=== PATIENT | female | born 1995 | race Caucasian/White ===

== ENCOUNTER → 2020-06-08 12:35 | Outpatient (BNVA) | payer OTHER, SELFPAY | PROVIDERS: PCP Hospitalist; Referring Provider Hospitalist; Visit Provider Nurse Practitioner Psychiatric/Mental Health | DX: F43.10 Post-traumatic stress disorder, unspecified (principal); F11.99 Opioid use, unspecified with unspecified opioid-induced disorder | CPT/HCPCS: 99214 ==

== ENCOUNTER → 2020-06-15 12:53 | Outpatient (BNVA) | payer OTHER, SELFPAY | PROVIDERS: Visit Provider Nurse Practitioner Psychiatric/Mental Health | DX: F11.20 Opioid dependence, uncomplicated (principal); F43.10 Post-traumatic stress disorder, unspecified; Z79.899 Other long term (current) drug therapy | CPT/HCPCS: 99214 ==

== ENCOUNTER → 2020-06-22 10:59 | Outpatient (BNVA) | payer OTHER, SELFPAY | PROVIDERS: Visit Provider Nurse Practitioner Psychiatric/Mental Health | DX: F11.20 Opioid dependence, uncomplicated (principal); F43.10 Post-traumatic stress disorder, unspecified | CPT/HCPCS: 99212 ==

== ENCOUNTER → 2020-06-29 09:23 | Outpatient (BNVA) | payer OTHER, SELFPAY | PROVIDERS: Visit Provider Nurse Practitioner Psychiatric/Mental Health | DX: F11.20 Opioid dependence, uncomplicated (principal); F43.10 Post-traumatic stress disorder, unspecified | CPT/HCPCS: 99212 ==

== ENCOUNTER → 2020-07-06 14:01 | Outpatient (BNVA) | payer OTHER, SELFPAY | PROVIDERS: Visit Provider Nurse Practitioner Psychiatric/Mental Health | DX: Z76.89 Persons encountering health services in other specified circumstances (principal) ==

== ENCOUNTER → 2020-07-13 10:42 | Outpatient (BNVA) | payer OTHER, SELFPAY | PROVIDERS: Visit Provider Nurse Practitioner Psychiatric/Mental Health | DX: Z76.89 Persons encountering health services in other specified circumstances (principal) ==

== ENCOUNTER → 2020-07-27 11:01 | Outpatient (BNVA) | payer OTHER, SELFPAY | PROVIDERS: PCP Nurse Practitioner Family; Visit Provider Nurse Practitioner Psychiatric/Mental Health | DX: Z13.89 Encounter for screening for other disorder (principal) ==

== ENCOUNTER → 2020-08-03 11:44 | Outpatient (BNVA) | payer OTHER, SELFPAY | PROVIDERS: Visit Provider Nurse Practitioner Psychiatric/Mental Health | DX: Z76.89 Persons encountering health services in other specified circumstances (principal) ==

== ENCOUNTER 2020-08-22 14:01 | Emergency (ER) | payer OTHER, SELFPAY ==
[2020-08-22 14:13] VITALS: BP 108/72; PULSE 82; RESP 16; TEMP 36.8; O2SAT 97
[2020-08-22 19:23] LABS: MANUAL DIFF FLAG NO
[2020-08-22 19:28] LABS: Basophils Percent Auto 0.3 % (0-2); Eosinophils Absolute Auto 0.1 X10*3/uL (0.0-0.4); Hematocrit 34.4 % (37-47); Hemoglobin 11.5 g/dl (12.0-16.0); Imm Gran Abs Auto 0.05 X10*3/uL (0.00-0.03); Imm Gran Pct Auto 0.7 % (0.0-0.4); Lymphocytes Absolute Auto 1.4 X10*3/uL (1.2-4.9); Lymphocytes Percent Auto 20.4 % (20-40); Mean Corpuscular HGB Conc 33.4 g/dl (31.0-35.0); Mean Corpuscular Hemoglobin 30.3 pg (27.0-33.0); Mean Corpuscular Volume 90.8 fL (80-98); Mean Platelet Volume 9.5 fL (9.4-12.3); Monocytes Absolute Auto 0.3 X10*3/uL (0.1-1.2); Monocytes Percent Auto 4.3 % (2-11); Neutrophils Absolute Auto 5.1 X10*3/uL (2.0-8.3); Neutrophils Percent Auto 73.3 % (45-73); Platelet Count 223 X10*3/uL (160-400); Red Blood Count 3.79 X10*6/uL (4.20-5.50); Red Cell Distribution Width 12.4 % (11.0-16.0)
[2020-08-22 19:30] VITALS: BP 105/62; PULSE 65; RESP 18; TEMP 36.7; O2SAT 99
[2020-08-22 19:47] LABS: Alanine Aminotransferase 18 U/L (0-31); Albumin Level 4.5 g/dL (3.5-5.0); Alkaline Phosphatase 64 U/L (39-117); Anion Gap 12 (12-20); Aspartate Amino Transferase 16 U/L (5-31); Bilirubin Total 0.4 mg/dL (0.0-1.0); Blood Urea Nitrogen 12 mg/dL (9-16); Calcium 9.1 mg/dL (8.4-10.2); Carbon Dioxide 26 mmol/L (22-29); Chloride 103 mmol/L (96-108); Creatinine Clr Calc Pharmacy 112.2; Estimated Glomerular Filt Rate > 60; Glucose Random 94 mg/dL (60-115); Potassium 4.8 mmol/l (3.3-5.1); Sodium 136 mmol/L (135-145); Total Protein 6.6 g/dL (6.5-8.0)
--- NOTE | 2020-08-22 20:06 | ED.ABDPAIN ---
HPI - Abdominal Pain General Chief Complaint: Abdominal Pain Stated Complaint: abd pain Time Seen by Provider: 08/22/20 19:50 Source: patient Mode of arrival: ambulatory Limitations: no limitations History of Present Illness HPI narrative: Patient comes emergency room complaining of abdominal pain for 6 days. Patient states she has been constipated and having abdominal pain. Patient has history of Crohn's disease. Patient was seen yesterday that [facility], they recommended admission to [facility] due to an intestinal obstruction, patient declined because she had a previous bad experience at [facility], decided to wait until today. Patient states that her primary care physician is in the [facility] and would prefer to be admitted here if needed. Patient denies vomiting Related Data Home Medications Medication Instructions Recorded Confirmed albuterol sulfate 2.5 mg INHALATION Q4-6H PRN 07/04/20 07/13/20 Previous Rx's Medication Instructions Recorded omeprazole 20 mg capsule,delayed 20 mg PO DAILY #30 cap 06/13/20 release albuterol sulfate 90 mcg/actuation 2 puff INHALATION QID PRN #8.5 g 07/04/20 aerosol inhaler prazosin 1 mg capsule 2 mg PO BEDTIME #60 cap 07/06/20 trazodone 100 mg tablet 100 mg PO BEDTIME #30 tab 07/06/20 risperidone 0.5 mg tablet 0.5 mg PO .COMPLEX 30 Days #45 tab 08/02/20 buprenorphine 12 mg-naloxone 3 mg 1 film SUBLINGUAL DAILY 30 Days 08/03/20 sublingual film #30 ea lithium carbonate 300 mg capsule 600 mg PO BEDTIME #60 cap 08/03/20 hyoscyamine sulfate 0.25 mg PO QID PRN #7 tab 08/22/20 Allergies Allergy/AdvReac Type Severity Reaction Status Date / Time latex [LATEX] Allergy Intermediate RASH Verified 07/27/20 10:34 adhesive tape [ADHESIVE TAPE] AdvReac Mild RASH Verified 07/27/20 10:34 Review of Systems Review of Systems Constitutional : No Weight loss, No Fever, No Chills, No Night Sweats, No Fatigue, No Malaise ENT/Mouth : No Hearing loss, No Ear Pain, No Nasal Congestion, No Sinus Pain, No Hoarseness, No sore throat, No Rhinorrhea, No Swallowing Difficulty Eyes: No Eye Pain, No Swelling, No Redness, No Foreign Body, No Discharge, No Vision Changes Cardiovascular : No Chest Pain, No SOB, No Dyspnea on Exertion, No Orthopnea, No Edema, No Palpitations Respiratory : No Cough, No Sputum, No Wheezing, No Smoke Exposure, No Dyspnea Gastrointestinal : No Nausea, No Vomiting, No Diarrhea, complaining of constipation for 6 days, diffuse abdominal pain for 6 days, nonradiating Genitourinary : no irregular bleeding, No Dysuria, No Urinary Frequency, No Hematuria, No Urinary Incontinence, No Urgency, No Flank Pain, No Urinary Flow Changes, No Hesitancy Musculoskeletal : No joint pain, No Myalgias, No Joint Swelling Skin : No Skin Lesions, No rash Neuro : No Weakness, No Numbness, No Paresthesias, No Loss of Consciousness, No Dizziness, No Headache Psych : No Anxiety/Panic, No Depression, No SI/HI/AH/VH, No Social Issues, Heme/Lymph: No Bruising, No Bleeding,No Lymphadenopathy Endocrine : No Polyuria, No Polydipsia, No Temperature Intolerance Physical Exam Vital Signs: Vital Signs: Last Vital Signs Temp 97.5 F 08/22/20 23:37 Pulse 62 08/22/20 23:37 Resp 16 08/22/20 23:37 BP 107/65 08/22/20 23:37 Pulse Ox 98 08/22/20 23:37 Body Mass Index 20.0 Appearance: Alert. Oriented X3. No acute distress. Eyes: Pupils equal, round and reactive to light. ENT: Pharynx normal. Neck: Normal inspection. Neck supple. No lymph nodes noted. No crepitus CVS: Normal heart rate and rhythm. Pulses normal. Normal S1 and S2 Respiratory: No respiratory distress. Breath sounds normal. No Wheezing. No rales Abdomen: Soft , [id number] tenderness and bilateral lower quadrants, No rigidity. No distention. good BS x4 Skin: Skin warm and dry. Normal skin color. Normal skin turgor. Extremities: No lower extremity edema. No lower extremity edema. No Lacerations. No Rash Neuro: Oriented X 3. No motor deficit. No sensory deficit. Moving all extermities. No slurred speech. Course Course Course Narrative: I discussed the labs and imaging with the patient, unremarkable, no bowel obstruction. Patient feeling better, patient will be discharged home. MDM - Abdominal Pain Lab Data Result diagrams: 08/22/20 19:14 08/22/20 19:14 Labs: Lab Results 08/22/20 08/22/20 08/22/20 Range/Units 19:14 19:14 19:14 WBC 7.0 (4.8-10.8) X10*3/uL RBC 3.79 L (4.20-5.50) X10*6/uL Hgb 11.5 L (12.0-16.0) g/dl Hct 34.4 L (37-47) % MCV 90.8 (80-98) fL MCH 30.3 (27.0-33.0) pg MCHC 33.4 (31.0-35.0) g/dl RDW 12.4 (11.0-16.0) % Plt Count 223 (160-400) X10*3/uL MPV 9.5 (9.4-12.3) fL Immature Gran % (Auto) 0.7 H (0.0-0.4) % Neut % (Auto) 73.3 H (45-73) % Lymph % (Auto) 20.4 (20-40) % [place] % (Auto) 4.3 (2-11) % Eos % (Auto) 1.0 (0-4) % Baso % (Auto) 0.3 (0-2) % Lymph # (Auto) 1.4 (1.2-4.9) X10*3/uL [place] # (Auto) 0.3 (0.1-1.2) X10*3/uL Eos # (Auto) 0.1 (0.0-0.4) X10*3/uL Baso # (Auto) 0.0 (0.0-0.2) X10*3/uL Abs Immat Gran (auto) 0.05 H (0.00-0.03) X10*3/uL Absolute Neuts (auto) 5.1 (2.0-8.3) X10*3/uL Absolute Nucleated RBC 0.000 (0.0-0.012) X10*3/uL Nucleated RBC % (auto) 0.0 (0.0-0.2) /100WBC ESR (0-20) MM/HR Hold Blue Top SEE NOTE Sodium 136 (135-145) mmol/L Potassium 4.8 (3.3-5.1) mmol/l Chloride 103 (96-108) mmol/L Carbon Dioxide 26 (22-29) mmol/L Anion Gap 12 (12-20) BUN 12 (9-16) mg/dL Creatinine 0.67 (0.5-1.4) mg/dL Estim Creat Clear Calc 112.2 Estimated GFR > 60 Random Glucose 94 (60-115) mg/dL Calcium 9.1 (8.4-10.2) mg/dL Total Bilirubin 0.4 (0.0-1.0) mg/dL Direct Bilirubin (0.0-0.5) mg/dL AST 16 (5-31) U/L ALT 18 (0-31) U/L Alkaline Phosphatase 64 (39-117) U/L C-Reactive Protein (< or = 0.50) mg/dL Total Protein 6.6 (6.5-8.0) g/dL Albumin 4.5 (3.5-5.0) g/dL Lipase (8-78) U/L Urine Color Urine Appearance Urine pH (5.0-8.0) Ur Specific [place] (1.005-1.025) Urine Protein (NEG-TRACE) MG/DL Urine Glucose (UA) (NEG) MG/DL Urine Ketones (NEG) MG/DL Urine Blood (NEG) Urine Nitrite (NEG) Ur Leukocyte Esterase (NEG) Urine Test (NEGATIVE) 08/22/20 08/22/20 08/22/20 Range/Units 19:14 19:14 20:54 WBC (4.8-10.8) X10*3/uL RBC (4.20-5.50) X10*6/uL Hgb (12.0-16.0) g/dl Hct (37-47) % MCV (80-98) fL MCH (27.0-33.0) pg MCHC (31.0-35.0) g/dl RDW (11.0-16.0) % Plt Count (160-400) X10*3/uL MPV (9.4-12.3) fL Immature Gran % (Auto) (0.0-0.4) % Neut % (Auto) (45-73) % Lymph % (Auto) (20-40) % [place] % (Auto) (2-11) % Eos % (Auto) (0-4) % Baso % (Auto) (0-2) % Lymph # (Auto) (1.2-4.9) X10*3/uL [place] # (Auto) (0.1-1.2) X10*3/uL Eos # (Auto) (0.0-0.4) X10*3/uL Baso # (Auto) (0.0-0.2) X10*3/uL Abs Immat Gran (auto) (0.00-0.03) X10*3/uL Absolute Neuts (auto) (2.0-8.3) X10*3/uL Absolute Nucleated RBC (0.0-0.012) X10*3/uL Nucleated RBC % (auto) (0.0-0.2) /100WBC ESR 2 (0-20) MM/HR Hold Blue Top Sodium 136 (135-145) mmol/L Potassium 4.8 (3.3-5.1) mmol/l Chloride 104 (96-108) mmol/L Carbon Dioxide 25 (22-29) mmol/L Anion Gap 12 (12-20) BUN 12 (9-16) mg/dL Creatinine 0.67 (0.5-1.4) mg/dL Estim Creat Clear Calc 112.2 Estimated GFR > 60 Random Glucose 95 (60-115) mg/dL Calcium 9.3 (8.4-10.2) mg/dL Total Bilirubin 0.4 (0.0-1.0) mg/dL Direct Bilirubin < 0.2 (0.0-0.5) mg/dL AST 20 (5-31) U/L ALT 18 (0-31) U/L Alkaline Phosphatase 64 (39-117) U/L C-Reactive Protein 0.10 (< or = 0.50) mg/dL Total Protein 6.6 (6.5-8.0) g/dL Albumin 4.5 (3.5-5.0) g/dL Lipase 22 (8-78) U/L Urine Color YELLOW Urine Appearance CLEAR Urine pH 7.0 (5.0-8.0) Ur Specific [place] 1.015 (1.005-1.025) Urine Protein NEG (NEG-TRACE) MG/DL Urine Glucose (UA) NEG (NEG) MG/DL Urine Ketones NEG (NEG) MG/DL Urine Blood NEG (NEG) Urine Nitrite NEG (NEG) Ur Leukocyte Esterase NEG (NEG) Urine Test NEGATIVE (NEGATIVE) Discharge Plan Discharge Clinical Impression: Abdominal pain Qualifiers: Abdominal location: generalized Qualified Code(s): R10.84 - Generalized abdominal pain Patient Disposition: Home, Self-Care Instructions: Abdominal Pain (ED) Additional Instructions: Please follow-up with your primary care physician tomorrow. If you have any worsening or new symptoms, please return to the emergency room or call 911 Prescriptions: New hyoscyamine sulfate 0.125 mg tablet 0.25 mg PO QID PRN (Reason: dyspepsia) Qty: 7 RF: 0 No Action omeprazole 20 mg capsule,delayed release(DR/EC) 20 mg PO DAILY Qty: 30 RF: 1 albuterol sulfate 2.5 mg /3 mL (0.083 %) solution for nebulization 2.5 mg inhalation Q4-6H PRNRF: 0 albuterol sulfate 90 mcg/actuation HFA aerosol inhaler 2 puff inhalation QID PRN (Reason: Shorness of breath) Qty: 8.5 RF: 2 risperidone 0.5 mg tablet 0.5 mg PO .COMPLEX 30 Days Qty: 45 RF: 2 buprenorphine-naloxone [Suboxone] 12-3 mg film 1 film sublingual DAILY 30 Days Qty: 30 RF: 0 lithium carbonate 300 mg capsule 600 mg PO BEDTIME Qty: 60 RF: 0 prazosin 1 mg capsule 2 mg PO BEDTIME Qty: 60 RF: 1 trazodone 100 mg tablet 100 mg PO BEDTIME Qty: 30 RF: 1 Referrals: Miguel Callahan [Physician] - 2 days [facility] Past Medical History Medical History Anxiety Asthma Crohn's disease Depression GERD (gastroesophageal reflux disease) PTSD (post-traumatic stress disorder) Family History Family History (Updated 07/28/20 @ 11:38 by HAI Jauregui, [facility]) Father No problems noted. Mother No problems noted. Brother Autism Sister Bipolar disorder Social History Social History Smoking Status: Current every day smoker Use of substances other than those prescribed or required for medical reasons: No Any prior treatment program specific to substance use: Yes (program in [facility]) Advance Directives: No Advance Directives Information Provided: No
[2020-08-22] MEDS: LORazepam 1 MG TABLET PO (20:27)
[2020-08-22 21:08] LABS: Appearance Urine CLEAR; Color Urine YELLOW; Glucose Urine UA NEG (NEG); Leukocyte Esterase Urine NEG (NEG); Nitrite Urine NEG (NEG); Specific Gravity - Urine 1.015 (1.005-1.025); Urine Blood NEG (NEG); Urine Ketones NEG (NEG); Urine Protein NEG (NEG-TRACE)
[2020-08-22 22:10] VITALS: BP 113/76; PULSE 59; RESP 16; TEMP 36.6; O2SAT 98
[2020-08-22 22:14] LABS: Alanine Aminotransferase 18 U/L (0-31); Albumin Level 4.5 g/dL (3.5-5.0); Alkaline Phosphatase 64 U/L (39-117); Anion Gap 12 (12-20); Aspartate Amino Transferase 20 U/L (5-31); Bilirubin Direct < 0.2 mg/dL (0.0-0.5); Bilirubin Total 0.4 mg/dL (0.0-1.0); Blood Urea Nitrogen 12 mg/dL (9-16); Calcium 9.3 mg/dL (8.4-10.2); Carbon Dioxide 25 mmol/L (22-29); Chloride 104 mmol/L (96-108); Creatinine Clr Calc Pharmacy 112.2; Estimated Glomerular Filt Rate > 60; Glucose Random 95 mg/dL (60-115); Lipase 22 U/L (8-78); Potassium 4.8 mmol/l (3.3-5.1); Sodium 136 mmol/L (135-145); Total Protein 6.6 g/dL (6.5-8.0)
[2020-08-22 22:26] LABS: UPreg QC Valid YES; Urine Pregnancy NEGATIVE (NEGATIVE)
--- NOTE | 2020-08-22 22:33 | CT_ITS ---
EXAMINATION: CT ABDOMEN AND PELVIS WITHOUT CONTRAST CLINICAL INFORMATION: Diffuse abdominal pain. History of Crohn's disease. COMPARISON: CT scan abdomen pelvis 11/29/2019 TECHNIQUE: Multidetector volumetric imaging was performed from the superior aspect of the liver through the pubic symphysis. Sagittal and coronal reformatted images were obtained on the technologist's workstation. This CT examination was performed using dose optimization techniques as appropriate, variously including the following: *Automated exposure control *Adjustment of mA and/or kV according to patient size (this includes techniques or standardized protocols for targeted exams where dose is matched to indication/reason for exam; i.e. extremities or head) *Use of iterative reconstruction technique DLP: 437 mGy-cm FINDINGS: LUNG BASES: The visualized lung bases are unremarkable. LIVER, GALLBLADDER, AND BILIARY TREE: The liver is normal in size, shape, and attenuation. No focal hepatic lesion or biliary ductal dilatation is present. The gallbladder is unremarkable with no evidence of radiopaque gallstones, gallbladder wall thickening, or obvious pericholecystic inflammatory changes. PANCREAS: Unremarkable. SPLEEN: Unremarkable. ADRENAL GLANDS: Unremarkable. KIDNEYS AND URETERS: The kidneys are normal in size, shape, and attenuation. No hydronephrosis, hydroureter, or calculi seen. No perinephric stranding. BLADDER: Unremarkable. GASTROINTESTINAL TRACT: There is no acute abnormality of the bowel. There is no bowel wall thickening /edema. There is no bowel obstruction. There is a moderate volume of stool in the colon. The appendix is normal . The small bowel loops are unremarkable. The stomach is normal. There is no hiatal hernia. ABDOMINAL WALL: No significant hernia is appreciated. LYMPH NODES: Normal. VASCULAR: Unremarkable. PELVIC VISCERA: Unremarkable. OSSEOUS STRUCTURES: Unremarkable. CT/CT abdomen pelvis wo con IMPRESSION: No significant abnormality.
[2020-08-22] MEDS: Morphine Sulfate 2 MG/ML CARTRIDGE 1 MG IVPUSH (22:45)
[2020-08-22 23:11] LABS: Erythrocyte Sedimentation Rate 2 MM/HR (0-20)
[2020-08-22 23:37] VITALS: BP 107/65; PULSE 62; RESP 16; TEMP 36.4; O2SAT 98
== END 2020-08-23 00:34 | disposition home or self-care (01) ==
PROVIDERS: Emergency Provider Emergency Medicine
DX: R10.84 Generalized abdominal pain (principal); F17.200 Nicotine dependence, unspecified, uncomplicated; Z71.6 Tobacco abuse counseling; Z79.899 Other long term (current) drug therapy
CPT/HCPCS: 36415; 74176; 80048; 80053; 80076; 81003; 81025; 82248; 83690; 85025; 85652; 86140; 96374; 99284; J2270

== ENCOUNTER → 2020-09-07 10:47 | Outpatient (BNVA) | payer OTHER, SELFPAY | PROVIDERS: Visit Provider Nurse Practitioner Psychiatric/Mental Health | DX: Z76.89 Persons encountering health services in other specified circumstances (principal) ==

== ENCOUNTER 2020-09-12 10:19 | Outpatient (REF) | payer OTHER, SELFPAY ==
[2020-09-12 13:47] LABS: Thyroid Stimulating Hormone 2.21 uIU/mL (0.32-4.0)
[2020-09-13 06:47] LABS: DHEA Sulfate 134 mcg/dL (18-391)
[2020-09-13 08:48] LABS: Prolactin 57.4 ng/mL
[2020-09-13 09:30] LABS: BV Int Neg Control Negative (Negative); BV Int Pos Control Positive (Positive)
[2020-09-14 00:27] LABS: C. trachomatis RNA TMA NOT DETECTED (NOT DETECTED); N. gonorrhoeae RNA TMA NOT DETECTED (NOT DETECTED)
[2020-09-16 14:37] LABS: Testosterone, Free 4.1 pg/mL (0.1-6.4); Testosterone, Total 39 ng/dL (2-45)
== END 2020-09-12 10:20 | disposition home or self-care (01) ==
LOC: HO.LAB 10:19
PROVIDERS: PCP Nurse Practitioner Family; Visit Provider Advanced Practice Midwife
DX: Z01.419 Encounter for gynecological examination (general) (routine) without abnormal findings (principal); N92.6 Irregular menstruation, unspecified; R10.2 Pelvic and perineal pain; N92.0 Excessive and frequent menstruation with regular cycle; L68.0 Hirsutism; F19.11 Other psychoactive substance abuse, in remission; Z20.2 Contact with and (suspected) exposure to infections with a predominantly sexual mode of transmission
CPT/HCPCS: 36415; 82627; 83498; 84146; 84402; 84403; 84443; 87480; 87491; 87510; 87591; 87624; 87660; 88141; 88142

== ENCOUNTER → 2020-09-14 10:31 | Outpatient (BNVA) | payer OTHER, SELFPAY | PROVIDERS: PCP Nurse Practitioner Family; Visit Provider Nurse Practitioner Psychiatric/Mental Health ==

== ENCOUNTER → 2020-09-21 10:37 | Outpatient (BNVA) | payer OTHER, SELFPAY | PROVIDERS: Visit Provider Nurse Practitioner Psychiatric/Mental Health ==

== ENCOUNTER 2020-10-04 11:21 | Outpatient (REF) | payer OTHER, SELFPAY ==
--- NOTE | ~2020-10-04 | XR_ITS ---
EXAMINATION: XR CHEST CLINICAL INFORMATION: Cough COMPARISON: Previous chest x-ray most recent March 2020 TECHNIQUE: 2 views of the chest were obtained. FINDINGS: The cardiac and mediastinal contours are normal. The lungs are clear. There is no pleural effusion or pneumothorax. There is curvature of the midthoracic spine to the right. Bony structures are otherwise unremarkable. XR/XR chest 2V IMPRESSION: No evidence for acute disease in the chest.
[2020-10-04 13:53] LABS: MANUAL DIFF FLAG NO
[2020-10-04 14:06] LABS: Basophils Percent Auto 0.2 % (0-2); Eosinophils Absolute Auto 0.1 X10*3/uL (0.0-0.4); Eosinophils Percent Auto 0.8 % (0-4); Hematocrit 40.4 % (37-47); Hemoglobin 13.1 g/dl (12.0-16.0); Imm Gran Abs Auto 0.04 X10*3/uL (0.00-0.03); Imm Gran Pct Auto 0.4 % (0.0-0.4); Lymphocytes Absolute Auto 1.5 X10*3/uL (1.2-4.9); Lymphocytes Percent Auto 15.7 % (20-40); Mean Corpuscular HGB Conc 32.4 g/dl (31.0-35.0); Mean Corpuscular Hemoglobin 30.1 pg (27.0-33.0); Mean Corpuscular Volume 92.9 fL (80-98); Mean Platelet Volume 10.3 fL (9.4-12.3); Monocytes Absolute Auto 0.5 X10*3/uL (0.1-1.2); Neutrophils Absolute Auto 7.5 X10*3/uL (2.0-8.3); Neutrophils Percent Auto 77.9 % (45-73); Platelet Count 272 X10*3/uL (160-400); Red Blood Count 4.35 X10*6/uL (4.20-5.50); White Blood Count 9.6 X10*3/uL (4.8-10.8)
[2020-10-04 14:23] LABS: Alanine Aminotransferase 16 U/L (0-31); Albumin Level 4.7 g/dL (3.5-5.0); Alkaline Phosphatase 80 U/L (39-117); Anion Gap 13 (12-20); Aspartate Amino Transferase 17 U/L (5-31); Bilirubin Total 0.5 mg/dL (0.0-1.0); Blood Urea Nitrogen 16 mg/dL (9-16); C Reactive Protein 0.12 mg/dL (< or = 0.50); Calcium 9.6 mg/dL (8.4-10.2); Carbon Dioxide 28 mmol/L (22-29); Chloride 104 mmol/L (96-108); Estimated Glomerular Filt Rate > 60; Glucose Random 81 mg/dL (60-115); Potassium 4.9 mmol/L (3.3-5.1); Sodium 140 mmol/L (135-145); Total Protein 7.1 g/dL (6.5-8.0)
[2020-10-04 15:03] LABS: Erythrocyte Sedimentation Rate 2 MM/HR (0-20)
== END 2020-10-04 11:22 | disposition home or self-care (01) ==
LOC: HO.HMGCX 11:21
PROVIDERS: PCP Nurse Practitioner Family; Visit Provider Nurse Practitioner Family
DX: K50.90 Crohn's disease, unspecified, without complications (principal); R10.9 Unspecified abdominal pain; R05 Cough; Z20.822 Contact with and (suspected) exposure to COVID-19
CPT/HCPCS: 36415; 71046; 80053; 85025; 85652; 86140; U0003; U0005

== ENCOUNTER → 2020-10-05 15:59 | Outpatient (BNVA) | payer OTHER, SELFPAY | PROVIDERS: Visit Provider Nurse Practitioner Psychiatric/Mental Health ==

== ENCOUNTER 2020-10-18 13:36 | Outpatient (REF) | payer OTHER, SELFPAY ==
--- NOTE | ~2020-10-18 | US_ITS ---
EXAMINATION: US PELVIS COMPLETE US PELVIS ENDOVAGINAL CLINICAL INFORMATION: Excessive and frequent menstruation with irregular cycle COMPARISON: CT abdomen pelvis 08/22/2020 TECHNIQUE: Transabdominal and transvaginal images of the pelvis were obtained. FINDINGS: UTERUS: Anteverted, anteflexed. Normal size and contour, measuring 7.0 x 2.5 x 3.5 cm (cervix to fundus x AP x transverse). Uniform, homogeneous endometrium measures 0.6 cm in width. RIGHT OVARY: Normal size and echogenicity measuring 4.4 x 2.8 x 2.6 cm. 17 mL volume. LEFT OVARY: Normal size and echogenicity measuring 3.1 x 2.1 x 1.9 cm. 6 mL volume. FREE FLUID: No pelvic free fluid. Trace free fluid seen in the endocervical canal. US/US transvaginal IMPRESSION: Normal pelvic ultrasound.
--- NOTE | ~2020-10-18 | US_ITS ---
EXAMINATION: US PELVIS COMPLETE US PELVIS ENDOVAGINAL CLINICAL INFORMATION: Excessive and frequent menstruation with irregular cycle COMPARISON: CT abdomen pelvis 08/22/2020 TECHNIQUE: Transabdominal and transvaginal images of the pelvis were obtained. FINDINGS: UTERUS: Anteverted, anteflexed. Normal size and contour, measuring 7.0 x 2.5 x 3.5 cm (cervix to fundus x AP x transverse). Uniform, homogeneous endometrium measures 0.6 cm in width. RIGHT OVARY: Normal size and echogenicity measuring 4.4 x 2.8 x 2.6 cm. 17 mL volume. LEFT OVARY: Normal size and echogenicity measuring 3.1 x 2.1 x 1.9 cm. 6 mL volume. FREE FLUID: No pelvic free fluid. Trace free fluid seen in the endocervical canal. US/US pelvic complete IMPRESSION: Normal pelvic ultrasound.
== END 2020-10-18 13:37 | disposition home or self-care (01) ==
LOC: HO.US 13:36
PROVIDERS: Visit Provider Advanced Practice Midwife
DX: N92.0 Excessive and frequent menstruation with regular cycle (principal); N92.6 Irregular menstruation, unspecified; L68.0 Hirsutism
CPT/HCPCS: 76830; 76856

== ENCOUNTER 2020-10-24 11:49 | Outpatient (REF) | payer OTHER, SELFPAY ==
[2020-10-25 08:36] LABS: HBS Num1 0.43 mIU/mL (0-7.99); HBc Num1 0.12 S/CO (0.00-0.79); Hepatitis A Antibody IgM 0.19 Index (0-0.79); Hepatitis B Core Antibody Nonreactive (Nonreactive); ~Hepatitis A Antibody IgM Nonreactive (Nonreactive); ~Hepatitis B Surface Antibody NONREACTIVE (Nonreactive)
[2020-10-25 08:56] LABS: HBsAGNum1 0.19 S/CO (0.00-0.99); Hepatitis B Surface Antigen Negative (Negative); ~HepC Num1 0.11 S/CO (0.00-0.79); ~Hepatitis C Antibody Nonreactive (Nonreactive)
[2020-10-25 22:57] LABS: C. trachomatis RNA TMA NOT DETECTED (NOT DETECTED); N. gonorrhoeae RNA TMA NOT DETECTED (NOT DETECTED)
== END 2020-10-24 11:50 | disposition home or self-care (01) ==
LOC: HO.LAB 11:49
PROVIDERS: Absent Provider Nurse Practitioner Family; PCP Nurse Practitioner Family; Visit Provider Advanced Practice Midwife
DX: R10.9 Unspecified abdominal pain (principal)
CPT/HCPCS: 36415; 86704; 86706; 86709; 86803; 87340; 87491; 87591

== ENCOUNTER → 2020-10-26 10:59 | Outpatient (BNVA) | payer OTHER, SELFPAY | PROVIDERS: PCP Nurse Practitioner Family; Visit Provider Nurse Practitioner Psychiatric/Mental Health ==

== ENCOUNTER 2020-11-02 10:32 | Outpatient (REF) | payer OTHER, SELFPAY ==
[2020-11-02 11:52] LABS: Lithium < 0.10 mmol/L (0.60-1.20)
[2020-11-02 12:04] LABS: Alanine Aminotransferase 11 U/L (0-31); Albumin Level 4.6 g/dL (3.5-5.0); Alkaline Phosphatase 78 U/L (39-117); Anion Gap 11 (12-20); Aspartate Amino Transferase 19 U/L (5-31); Bilirubin Direct 0.2 mg/dL (0.0-0.5); Bilirubin Total 0.5 mg/dL (0.0-1.0); Blood Urea Nitrogen 16 mg/dL (9-16); Calcium 9.4 mg/dL (8.4-10.2); Carbon Dioxide 25 mmol/L (22-29); Chloride 107 mmol/L (96-108); Estimated Glomerular Filt Rate > 60; Glucose Random 99 mg/dL (60-115); Potassium 4.5 mmol/L (3.3-5.1); Sodium 138 mmol/L (135-145); Total Protein 6.8 g/dL (6.5-8.0)
[2020-11-02 12:27] LABS: TSH reflex Free T4 0.84 uIU/mL (0.32-4.0)
== END 2020-11-02 10:33 | disposition home or self-care (01) ==
LOC: HO.LAB 10:32
PROVIDERS: Absent Provider Nurse Practitioner Psychiatric/Mental Health; PCP Nurse Practitioner Family; Visit Provider Advanced Practice Midwife
DX: Z79.899 Other long term (current) drug therapy (principal); Z20.2 Contact with and (suspected) exposure to infections with a predominantly sexual mode of transmission
CPT/HCPCS: 36415; 80048; 80076; 80178; 84443; 87491; 87591

== ENCOUNTER → 2020-11-09 10:21 | Outpatient (BNVA) | payer OTHER, SELFPAY | PROVIDERS: PCP Nurse Practitioner Family; Visit Provider Nurse Practitioner Psychiatric/Mental Health ==

== ENCOUNTER → 2020-11-14 12:36 | Outpatient (BNVA) | payer OTHER, SELFPAY | PROVIDERS: PCP Nurse Practitioner Family; Visit Provider Advanced Practice Midwife ==

== ENCOUNTER → 2020-11-30 14:48 | Outpatient (BNVA) | payer OTHER, SELFPAY | PROVIDERS: PCP Nurse Practitioner Family; Visit Provider Nurse Practitioner Psychiatric/Mental Health ==

== ENCOUNTER → 2020-12-08 15:59 | Outpatient (BNVA) | payer OTHER, SELFPAY | PROVIDERS: Visit Provider Internal Medicine | DX: Z51.81 Encounter for therapeutic drug level monitoring (principal); F11.20 Opioid dependence, uncomplicated | CPT/HCPCS: 99211 ==

== ENCOUNTER 2020-12-19 11:59 | Outpatient (RCR) | payer OTHER, SELFPAY ==
--- NOTE | 2020-12-20 09:37 | PC.NURSE ---
Pt did not attend community meeting on her first day of treatment. Staff did not receive a call or email from her. TW called pt, pt did not answer, TW left pt a voicemail. Informed pt that pt will need a reassessment in order to start the program. Asked for a call back to ensure safety and to reschedule.
--- NOTE | 2020-12-20 10:47 | PC.NURSE ---
Staff has not heard from Pt. TW called pt's emergency contact. Emergency contact did not answer. A message was left for either emergency contact or pt to call the program to ensure safety. Emergency contact Bebe Brannon [phone]
== END 2020-12-20 09:32 | disposition left against medical advice (07) ==
LOC: HO.PHPA 11:59
PROVIDERS: PCP Nurse Practitioner Family; Visit Provider Psychiatry & Neurology Psychiatry
DX: F32.9 Major depressive disorder, single episode, unspecified (principal); F11.90 Opioid use, unspecified, uncomplicated
CPT/HCPCS: 90791

== ENCOUNTER → 2021-01-11 08:56 | Outpatient (BNVA) | payer OTHER, SELFPAY | PROVIDERS: Visit Provider Nurse Practitioner Psychiatric/Mental Health ==

== ENCOUNTER → 2021-01-12 09:16 | Outpatient (BNVA) | payer OTHER, SELFPAY | PROVIDERS: Visit Provider Nurse Practitioner Psychiatric/Mental Health | DX: F11.20 Opioid dependence, uncomplicated (principal) | CPT/HCPCS: 99211 ==

== ENCOUNTER → 2021-01-18 09:11 | Outpatient (BNVA) | payer OTHER, SELFPAY | PROVIDERS: Visit Provider Nurse Practitioner Psychiatric/Mental Health | DX: F11.99 Opioid use, unspecified with unspecified opioid-induced disorder (principal); F43.10 Post-traumatic stress disorder, unspecified | CPT/HCPCS: 99212 ==

== ENCOUNTER → 2021-01-23 13:37 | Outpatient (BNVA) | payer OTHER, SELFPAY | PROVIDERS: PCP Nurse Practitioner Family; Visit Provider Nurse Practitioner Psychiatric/Mental Health ==

== ENCOUNTER → 2021-01-25 09:27 | Outpatient (BNVA) | payer OTHER, SELFPAY | PROVIDERS: Visit Provider Nurse Practitioner Psychiatric/Mental Health ==

== ENCOUNTER 2021-02-07 13:09 | Outpatient (REF) | payer OTHER, SELFPAY ==
--- NOTE | ~2021-02-07 | XR_ITS ---
EXAMINATION: XR WRIST, LEFT CLINICAL INFORMATION: Pain in left wrist. COMPARISON: None TECHNIQUE: PA, lateral, and oblique views of the left wrist. FINDINGS: The bones and soft tissues are normal. No fracture. Alignment is anatomic with normal joint spaces. No erosions or abnormal soft tissue calcifications. XR/XR wrist LT min 3V IMPRESSION: Normal left wrist.
== END 2021-02-07 13:10 | disposition home or self-care (01) ==
LOC: HO.HMGCX 13:09
PROVIDERS: PCP Nurse Practitioner Family; Visit Provider Nurse Practitioner Family
DX: M25.532 Pain in left wrist (principal)
CPT/HCPCS: 73110

== ENCOUNTER → 2021-02-08 13:24 | Outpatient (BNVA) | payer OTHER, SELFPAY | PROVIDERS: PCP Nurse Practitioner Family; Visit Provider Nurse Practitioner Psychiatric/Mental Health | DX: Z51.81 Encounter for therapeutic drug level monitoring (principal); F11.988 Opioid use, unspecified with other opioid-induced disorder | CPT/HCPCS: 80305; 99212 ==

== ENCOUNTER 2021-02-08 14:08 | Emergency (ER) | payer OTHER, SELFPAY ==
[2021-02-08 14:27] VITALS: BP 102/69; PULSE 98; RESP 18; TEMP 36.8; O2SAT 99; BMI 23.3
--- NOTE | 2021-02-08 15:19 | ED_ITS ---
HPI - General Adult General Chief complaint: General Medical Stated complaint: lump on neck Time Seen by Provider: 02/08/21 14:47 History of Present Illness HPI narrative: Patient presents to the ED for pain for area of redness behind right jaw angle since yesterday that is tender on palpation. Patient denies any coughing, shortness of breath, fever, chills. Patient states history of multiple dental surgeries due to cracked tooth left after oral surgeries. Patient denies any recent facial trauma, facial swelling, head trauma, drooling, change in voice, shortness of breath, neck pain, neck swelling, weakness, or dizziness. Patient states mild sore throat Related Data Home Medications Medication Instructions Recorded Confirmed albuterol sulfate 2.5 mg INHALATION Q4-6H PRN 07/04/20 01/30/21 Previous Rx's Medication Instructions Recorded omeprazole 20 mg capsule,delayed 20 mg PO DAILY #30 cap 06/13/20 release albuterol sulfate 90 mcg/actuation 2 puff INHALATION QID PRN #8.5 g 07/04/20 aerosol inhaler hyoscyamine sulfate 0.25 mg PO QID PRN #7 tab 08/22/20 prazosin 1 mg capsule 1 mg PO .COMPLEX #90 cap 02/01/21 risperidone 0.5 mg tablet 0.5 mg PO .COMPLEX 30 Days #45 tab 02/01/21 sertraline 50 mg tablet 50 mg PO DAILY #30 tab 02/01/21 trazodone 100 mg tablet 100 mg PO BEDTIME #30 tab 02/01/21 buprenorphine 8 mg-naloxone 2 mg 1 film SUBLINGUAL DAILY #28 ea 02/08/21 sublingual film cephalexin 500 mg PO QID #28 cap 02/08/21 naproxen 500 mg PO BID PRN #28 tab 02/08/21 Allergies Allergy/AdvReac Type Severity Reaction Status Date / Time latex [LATEX] Allergy Intermediate RASH Verified 02/08/21 13:39 adhesive tape [ADHESIVE TAPE] AdvReac Mild RASH Verified 02/08/21 13:39 Review of Systems Review of Systems: Yes all other systems are reviewed and are negative Constitutional: Constitutional: Reports as per HPI and Reports no additional constitutional complaints Eyes: Eyes: Reports as per HPI and Reports no additional eye complaints ENT: Reports system reviewed and no additional complaints, except as documented and Reports as per HPI Comments: lump behind right jaw angle Cardiovascular: Cardiovascular: Reports as per HPI and Reports no additional cardiovascular complaints Respiratory: Respiratory: Reports as per HPI and Reports no additional respiratory complaints Gastrointestinal: Gastrointestinal: Reports as per HPI and Reports no additional gastrointestinal complaints Genitourinary: Genitourinary: Reports no additional female genitourinary complaints and Reports as per HPI Musculoskeletal: Musculoskeletal: Reports no additional musculoskeletal complaints and Reports as per HPI Neurologic: Reports system reviewed and no additional complaints, except as documented and Reports as per HPI Psychiatric: Psychiatric: Reports no additional psychiatric complaints and Reports as per HPI [facility] Past Medical History Medical History (Updated 02/08/21 @ 16:07 by LISA Weinberg) Anxiety Asthma Crohn's disease Depression GERD (gastroesophageal reflux disease) Hx of substance abuse PTSD (post-traumatic stress disorder) Family History Family History Father Colon cancer Mother No problems noted. Brother Autism Sister Bipolar disorder Maternal Aunt Breast cancer Social History Social History Household Members: Significant Other Alcohol intake: current Alcohol intake frequency: does not drink Patient Tobacco Use Status: Current everyday Tobacco user Tobacco use type: Cigarette Cigarettes Per Day: 5 Years Smoked: 8 e-Cigarette/Vaping Use: Never Used Advance Directives: No Advance Directives Information Provided: No Patient : No Physical Exam Vital Signs: Vital Signs: Last Vital Signs Temp 98.2 F 02/08/21 14:27 Pulse 98 02/08/21 14:27 Resp 18 02/08/21 14:27 BP 102/69 02/08/21 14:27 Pulse Ox 99 02/08/21 14:27 Body Mass Index 23.3 Const: General: cooperative, healthy appearing, comfortable, no acute distress, well developed, alert, awake and Physically active; No lethargic Orientation/consciousness: patient oriented x3 and No lethargic HENMT: Other: Area of erythema slightly hard and tender on palpation. Negative for submandibular or cervical lymphadenopathy. Negative for pre or postauricular lymphadenopathy. oral exam negative for any dental abscess Head: Yes normal to inspection, Yes No palpable skull fracture present, Yes normocephalic and Yes atraumatic Ears: hearing grossly normal bilaterally, external ears normal and TM's normal bilaterally Teeth and gingiva: dentition normal and gingiva normal Throat: Yes posterior oropharynx normal, Yes tonsils normal and Yes uvula midline Eyes: Visual Ma: normal visual ma by confrontation Neck: Neck: Yes normal visual inspection and Yes full ROM Chest: Chest palpation & inspection: normal inspection of the chest and normal palpation of entire chest wall Resp: Effort & Inspection: normal respiratory effort and able to speak in complete sentences Cardio: Jugular venous distension: no JVD Heart sounds: S1 normal heart sound present and S2 normal heart sound present GI: Inspection: Yes normal to inspection and No abdominal wall ecchymosis Palpation (GI): Soft to palpation, not firm, nontender, no guarding and not rigid : General: No CVA tenderness and Yes no CVA tenderness Back/Spine/Pelvis: Back: no CVA tenderness, No CVA tenderness and No back tenderness Skin: General skin exam: no rashes or lesions noted and elasticity normal Neuro: General: patient oriented x3, gait normal and CN's II-XI intact bilaterally Cranial nerves: Yes CN's II-XII intact bilaterally Extrem: General: Yes normal to inspection and Yes full ROM Psych: Appearance: grossly normal, well kempt and not disheveled Course Course Course Narrative: Physical exam indicate probable early pimple/cellulitis. Reevaluation(s) Reevaluation #1: Patient evaluated with Dr. Laureano who agreed this is might be early cellulitis and irritation from earing rub it on the side of face while she was sleeping. She recommends antibiotics at discharge. Will send COVID and strep swab. Time: 15:49 Reevaluation #2: COVID swab and strep test negative. Patient will be discharged with Keflex. Diagnosis early cellulitis due to skin irritation by hearing. Time: 16:06 Medical Decision Making MDM Narrative Medical decision making narrative: cellulitis Lab Data Labs: Lab Results 02/08/21 02/08/21 Range/Units 15:33 15:33 COVID-19 (DAVID) Negative (Negative) COVID-19 Clin Com See Note S. pyogenes GrpA TYSON Negative (Negative) Discharge Plan Discharge Clinical Impression: Cellulitis Patient Disposition: Home, Self-Care Instructions: Cellulitis (ED) Additional Instructions: return to the ED for increased swelling of area, increased redness, facial swelling, fluctuant mass, neck pain, shortness of breath, drooling, change in voice, headache, dizziness, ear pain, or any other concerning symptoms. Recommend warm compress on the area 4 times a day 15 minutes. Your COVID swab and rapid strep test came back negative Prescriptions: New cephalexin 500 mg capsule 500 mg PO QID Qty: 28 RF: 0 naproxen 500 mg tablet 500 mg PO BID PRN (Reason: pain) Qty: 28 RF: 0 No Action omeprazole 20 mg capsule,delayed release(DR/EC) 20 mg PO DAILY Qty: 30 RF: 1 albuterol sulfate 2.5 mg /3 mL (0.083 %) solution for nebulization 2.5 mg inhalation Q4-6H PRNRF: 0 albuterol sulfate 90 mcg/actuation HFA aerosol inhaler 2 puff inhalation QID PRN (Reason: Shorness of breath) Qty: 8.5 RF: 2 prazosin 1 mg capsule 1 mg PO .COMPLEX Qty: 90 RF: 0 risperidone 0.5 mg tablet 0.5 mg PO .COMPLEX 30 Days Qty: 45 RF: 2 sertraline 50 mg tablet 50 mg PO DAILY Qty: 30 RF: 2 trazodone 100 mg tablet 100 mg PO BEDTIME Qty: 30 RF: 2 hyoscyamine sulfate 0.125 mg tablet 0.25 mg PO QID PRN (Reason: dyspepsia) Qty: 7 RF: 0 buprenorphine-naloxone [Suboxone] 8-2 mg film 1 film sublingual DAILY Qty: 28 RF: 0 Referrals: Vincent Hayes, [facility] [Primary Care Provider] - 2 days ( early mild c ellulitis.) Interventions: ED Discharge Assessment Last Done: 02/08/21 16:13 Discharge Date/Time: 02/08/21 16:14 Print Language: Wolof
[2021-02-08 15:49] LABS: IDNOW Serial# 9DD0AD1C; Strep A Nucleic Acid Negative (Negative)
[2021-02-08 15:53] LABS: COVID-19 Test Negative (Negative)
== END 2021-02-08 16:14 | disposition home or self-care (01) ==
PROVIDERS: Physician Assistant; Emergency Provider Emergency Medicine; PCP Nurse Practitioner Family
DX: L03.211 Cellulitis of face (principal); J45.909 Unspecified asthma, uncomplicated; Z79.899 Other long term (current) drug therapy; Z20.822 Contact with and (suspected) exposure to COVID-19
CPT/HCPCS: 36415; 87635; 87651; 99283

== ENCOUNTER 2021-02-16 12:51 | Emergency (ER) | payer OTHER, SELFPAY ==
[2021-02-16 13:05] VITALS: BP 117/79; PULSE 95; RESP 18; TEMP 36.8; O2SAT 100; BMI 28.3
--- NOTE | 2021-02-16 13:32 | ED.GENADULT ---
HPI - General Adult General Chief complaint: General Medical Stated complaint: RING STUCK ON R INDEX FINGER Time Seen by Provider: 02/16/21 13:19 Source: patient Mode of arrival: ambulatory Limitations: no limitations History of Present Illness HPI narrative: 25 y/o female presenting with a ring stuck on her right index finger. She has been trying to get it off for the last 2 days without success. She has tried many methods including soap, oil, compression with string. She has been able to get it up to her knuckle but not past the knuckle. Her entire finger is swollen now and she just wants the ring cut off. complaint: ring stuck on finger Onset (ago): day(s) (2) Location: right and upper extremity Radiation: distal Severity: moderate Quality: aching and sharp Pain Consistency: intermittent Relieving factors: rest Exacerbating factors: other (recurrent attmepts to get ring off) Associated symptoms: denies other symptoms Treatments prior to arrival: none Related Data Home Medications Medication Instructions Recorded Confirmed albuterol sulfate 2.5 mg INHALATION Q4-6H PRN 07/04/20 01/30/21 Previous Rx's Medication Instructions Recorded omeprazole 20 mg capsule,delayed 20 mg PO DAILY #30 cap 06/13/20 release albuterol sulfate 90 mcg/actuation 2 puff INHALATION QID PRN #8.5 g 07/04/20 aerosol inhaler hyoscyamine sulfate 0.25 mg PO QID PRN #7 tab 08/22/20 prazosin 1 mg capsule 1 mg PO .COMPLEX #90 cap 02/01/21 risperidone 0.5 mg tablet 0.5 mg PO .COMPLEX 30 Days #45 tab 02/01/21 sertraline 50 mg tablet 50 mg PO DAILY #30 tab 02/01/21 trazodone 100 mg tablet 100 mg PO BEDTIME #30 tab 02/01/21 buprenorphine 8 mg-naloxone 2 mg 1 film SUBLINGUAL DAILY #28 ea 02/08/21 sublingual film cephalexin 500 mg PO QID #28 cap 02/08/21 naproxen 500 mg PO BID PRN #28 tab 02/08/21 Allergies Allergy/AdvReac Type Severity Reaction Status Date / Time latex [LATEX] Allergy Intermediate RASH Verified 02/16/21 13:05 adhesive tape [ADHESIVE TAPE] AdvReac Intermediate RASH Verified 02/16/21 13:05 Review of Systems Review of Systems: Constitutional: No Fever, No Chills Musculoskeletal: + joint pain, No Myalgias Skin: No Skin Lesions, No rash Neuro: No Weakness, No Numbness Heme/Lymph: No Bruising PMFSH Past Medical History Medical History (Updated 02/16/21 @ 13:45 by LISA Yanez) Anxiety Asthma Crohn's disease Depression GERD (gastroesophageal reflux disease) Hx of substance abuse PTSD (post-traumatic stress disorder) Family History Family History Father Colon cancer Mother No problems noted. Brother Autism Sister Bipolar disorder Maternal Aunt Breast cancer Social History Social History Household Members: Significant Other Alcohol intake: current Alcohol intake frequency: does not drink Patient Tobacco Use Status: Current everyday Tobacco user Tobacco use type: Cigarette Cigarettes Per Day: 5 Years Smoked: 8 e-Cigarette/Vaping Use: Never Used Advance Directives: Yes Advance Directives Information Provided: No Advance Directives on File: No Patient : No Physical Exam Vital Signs: Vital Signs: Last Vital Signs Temp 98.2 F 02/16/21 13:05 Pulse 95 02/16/21 13:05 Resp 18 02/16/21 13:05 BP 117/79 02/16/21 13:05 Pulse Ox 100 02/16/21 13:05 Body Mass Index 28.3 Appearance: Alert. Oriented X3. No acute distress. HEENT: normal inspection CVS: Normal heart rate and rhythm. Pulses normal. Respiratory: No respiratory distress. Skin: Skin warm and dry. Normal skin color. Normal skin turgor. No rashes. Extremities: right index finger with ring in place at proximal aspect, entire index finger is swollen and slightly erythematous proximally. unable to move ring distally due to swelling and pain. NV Intact distally with <3 sec cap refill. full ROM of the finger Neuro: Oriented X 3. No motor deficit. No sensory deficit. Course Course Course Narrative: 25 y/o female presents for ring to be cut off. Multiple attempts made Procedures Foreign Body Removal Time Out Performed: yes Site: right and upper extremity Description of foreign body: other (ring) Sedation/Analgesia: none Technique: other (removal with ring cutter tool) Confirmed by:: direct visualization Complications: none Post-procedure exam: awake, alert Neurovascular: normal distal pulse, normal capillary fill, distal light touch sensation intact and distal motor function normal Critical Care Time Critical Care Time Critical Care Time: No Discharge Plan Discharge Clinical Impression: Finger pain Qualifiers: Laterality: right Qualified Code(s): M79.644 - Pain in right finger(s) Patient Disposition: Home, Self-Care Instructions: Arthralgia (ED) Additional Instructions: Your ring was successfully cut off today in the ER. Use ice and elevate your hand as needed for pain and swelling. Take Motrin and/or Tylenol as needed. Prescriptions: No Action omeprazole 20 mg capsule,delayed release(DR/EC) 20 mg PO DAILY Qty: 30 RF: 1 albuterol sulfate 2.5 mg /3 mL (0.083 %) solution for nebulization 2.5 mg inhalation Q4-6H PRNRF: 0 albuterol sulfate 90 mcg/actuation HFA aerosol inhaler 2 puff inhalation QID PRN (Reason: Shorness of breath) Qty: 8.5 RF: 2 prazosin 1 mg capsule 1 mg PO .COMPLEX Qty: 90 RF: 0 risperidone 0.5 mg tablet 0.5 mg PO .COMPLEX 30 Days Qty: 45 RF: 2 sertraline 50 mg tablet 50 mg PO DAILY Qty: 30 RF: 2 trazodone 100 mg tablet 100 mg PO BEDTIME Qty: 30 RF: 2 hyoscyamine sulfate 0.125 mg tablet 0.25 mg PO QID PRN (Reason: dyspepsia) Qty: 7 RF: 0 cephalexin 500 mg capsule 500 mg PO QID Qty: 28 RF: 0 naproxen 500 mg tablet 500 mg PO BID PRN (Reason: pain) Qty: 28 RF: 0 buprenorphine-naloxone [Suboxone] 8-2 mg film 1 film sublingual DAILY Qty: 28 RF: 0 Stand Alone Forms: Work/School Release
== END 2021-02-16 13:54 | disposition home or self-care (01) ==
PROVIDERS: Emergency Provider Emergency Medicine; PCP Nurse Practitioner Family
DX: M79.644 Pain in right finger(s) (principal)
CPT/HCPCS: 99283

== ENCOUNTER → 2021-02-22 13:09 | Outpatient (BNVA) | payer OTHER, SELFPAY | PROVIDERS: PCP Nurse Practitioner Family; Visit Provider Nurse Practitioner Psychiatric/Mental Health | DX: F11.99 Opioid use, unspecified with unspecified opioid-induced disorder (principal) | CPT/HCPCS: 80305; 99212 ==

== ENCOUNTER 2021-03-08 08:21 | Outpatient (REF) | payer OTHER, SELFPAY ==
--- NOTE | ~2021-03-08 | XR_ITS ---
EXAMINATION: XR CHEST CLINICAL INFORMATION: Shortness of breath COMPARISON: 10/04/2020 TECHNIQUE: 2 views of the chest were obtained. FINDINGS: No focal consolidation, pulmonary edema, or pleural effusion. Stable cardiomediastinal silhouette. XR/XR chest 2V IMPRESSION: No acute cardiopulmonary findings.
== END 2021-03-08 08:22 | disposition home or self-care (01) ==
LOC: HO.HMGCX 08:21
PROVIDERS: PCP Nurse Practitioner Family; Visit Provider Nurse Practitioner Family
DX: R06.02 Shortness of breath (principal)
CPT/HCPCS: 71046

== ENCOUNTER 2021-03-18 17:42 | Emergency (ER) | payer OTHER, SELFPAY ==
--- NOTE | 2021-03-18 | ECG_ITS ---
Test Reason : SHORTNESS OF BREATH Blood Pressure : / mmHG Vent. Rate : 095 BPM Atrial Rate : 095 BPM P-R Int : 144 ms QRS Dur : 076 ms QT Int : 344 ms P-R-T Axes : 067 034 039 degrees QTc Int : 432 ms Normal sinus rhythm Normal ECG When compared with ECG of 11-APR-2020 20:33, No significant change was found Referred By: Generic ED Physician Electronically Signed By:ALEA ODEN
--- NOTE | ~2021-03-18 | XR_ITS ---
EXAMINATION: XR CHEST CLINICAL INFORMATION: Chest pain COMPARISON: 01/06/2021 TECHNIQUE: Frontal view of the chest was obtained. FINDINGS: The heart and pulmonary vessels appear normal. No infiltrates or effusions seen. Just at/below the anterior right fourth rib end, there is a 1.3 cm nodular density that was not present on prior chest radiographs. No other abnormalities are seen. XR/XR chest 1V IMPRESSION: Small rounded nodular density that was not seen on the chest radiograph from 10 days ago. This could be inflammatory recommend repeat PA and lateral chest radiograph in one month.
[2021-03-18 17:50] VITALS: BP 121/76; BP 138/80; PULSE 110; RESP 18; TEMP 36.8; O2SAT 97; O2SAT 98; BMI 28.3
[2021-03-18 17:56] VITALS: PULSE 110; TEMP 36.8
--- NOTE | 2021-03-18 18:19 | ED.SOB ---
HPI - SOB/Dyspnea General Chief Complaint: Dyspnea Stated Complaint: chest pain Time Seen by Provider: 03/18/21 18:17 Source: patient and EMS Mode of arrival: EMS Limitations: no limitations History of Present Illness HPI Narrative: [age] year female came in for evaluation of shortness of breath and chest pain. Patient with history of asthma, recently diagnosed with bilateral pneumonia, and recent hospitalization for bilateral pneumonia. Patient was evaluated at urgent care today for left ear infection with TM perforation, patient also had chest pain and shortness of breath, because patient's past history of asthma patient was instructed to come to the ED for further evaluation. Patient stated that she was helping her mom today bringing the grocery when she passed out, and she has been having intermittent left-sided chest pain. Patient is taking bronchodilator therapy and prednisone taper schedule currently takes 70 mg daily. Patient noted to be comfortable, no acute distress with stable vital sign while she was in the emergency department. Related Data Home Medications Medication Instructions Recorded Confirmed albuterol sulfate 2.5 mg INHALATION Q4-6H PRN 07/04/20 03/08/21 gabapentin 400 mg capsule 400 mg PO TID 03/08/21 03/08/21 prazosin 2 mg capsule 2 mg PO BEDTIME 03/08/21 03/08/21 Previous Rx's Medication Instructions Recorded omeprazole 20 mg capsule,delayed 20 mg PO DAILY #30 cap 06/13/20 release albuterol sulfate 90 mcg/actuation 2 puff INHALATION QID PRN #8.5 g 07/04/20 aerosol inhaler hyoscyamine sulfate 0.25 mg PO QID PRN #7 tab 08/22/20 prazosin 1 mg capsule 1 mg PO .COMPLEX #90 cap 02/01/21 risperidone 0.5 mg tablet 0.5 mg PO .COMPLEX 30 Days #45 tab 02/01/21 sertraline 50 mg tablet 50 mg PO DAILY #30 tab 02/01/21 cephalexin 500 mg PO QID #28 cap 02/08/21 buprenorphine 8 mg-naloxone 2 mg 1 film SUBLINGUAL DAILY #42 ea 02/22/21 sublingual film Allergies Allergy/AdvReac Type Severity Reaction Status Date / Time latex [LATEX] Allergy Intermediate RASH Verified 03/08/21 07:57 adhesive tape [ADHESIVE TAPE] AdvReac Intermediate RASH Verified 03/08/21 07:57 Review of Systems Review of Systems: All other systems are reviewed and are negative Constitutional: Reports as per HPI and Reports no additional constitutional complaints Eyes: Reports as per HPI and Reports no additional eye complaints Reports system reviewed and no additional complaints, except as documented Cardiovascular: Reports as per HPI and Reports no additional cardiovascular complaints Respiratory: Reports as per HPI and Reports no additional respiratory complaints Gastrointestinal: Reports as per HPI and Reports no additional gastrointestinal complaints Genitourinary: Reports no additional female genitourinary complaints Musculoskeletal: Reports no additional musculoskeletal complaints Skin/Breast: Reports system reviewed and no additional complaints, except as docu Psychiatric: Reports no additional psychiatric complaints Endocrine: Reports no additional endocrine complaints Hematologic/Lymphatic: Reports no additional hematologic/lymphatic complaints Allergic/Immunologic: Reports no additional allergic/immunologic complaints Reports system reviewed and no additional complaints, except as documented and Reports Abnormal speech present [facility] Past Medical History Medical History Anxiety Asthma Crohn's disease Depression GERD (gastroesophageal reflux disease) Hx of substance abuse PTSD (post-traumatic stress disorder) Family History Family History Father Colon cancer Mother No problems noted. Brother Autism Sister Bipolar disorder Maternal Aunt Breast cancer Social History Social History Household Members: Significant Other Housing: Other Alcohol intake: current Alcohol intake frequency: does not drink Patient Tobacco Use Status: Current everyday Tobacco user Tobacco use type: Cigarette Cigarettes Per Day: 5 Years Smoked: 8 e-Cigarette/Vaping Use: Never Used Advance Directives: No Advance Directives Information Provided: Yes Patient : No Current occupational status: unemployed Physical Exam Vital Signs: Vital Signs: Last Vital Signs Temp 98.2 F 03/18/21 17:56 Pulse 110 H 03/18/21 17:56 Resp 18 03/18/21 17:50 BP 121/76 03/18/21 17:50 Pulse Ox 97 03/18/21 17:50 Body Mass Index 28.3 Vital signs have been reviewed as appeared to be correct. Blood pressure normal. Heart rate normal (95 beats per minute). Respiration rate normal. Temperature normal. Oxygen saturation normal. Appearance: Alert. Oriented X3. No acute distress. Head: Normal external exam. Normocephalic. Atraumatic. No Wilson signs noted. No raccoon eyes noted Eyes: PERRLA. EOMI. Conjunctiva and sclera normal. Eyelids normal. ENT: TM's Normal. Pharynx normal. Uvula midline. Moist mucous membranes. No trismus noted. No drooling noted. No muffled voice noted. Neck: Normal inspection. Neck supple. FROM. No adenopathy. Thyroid Normal. No meningeal signs. No neck mass noted. CVS: Normal heart rate and rhythm. Heart sound normal. No murmurs noted. Pulses normal throughout. Respiratory: No respiratory distress. Painless inspiration. Breath sounds normal. No wheezes/rales/rhonchi noted. Chest nontender. No accessory muscle usage noted or decreased air movement noted. Abdomen: Soft and nontender. Bowel sounds normal in all 4 quadrants. No distention noted. No organomegaly noted. No visible injury noted. Back: No CVA tenderness. Full range of motion noted. Skin: Skin warm and dry. Normal skin color. Normal skin turgor. No rashes/lesions/lacerations noted. Extremities: No lower extremity edema. Extremities exhibit normal range of motion. Extremities nontender. Neuro: Oriented X 3. No motor deficit. No sensory deficit. Reflexes normal. Course Course Course Narrative: Patient now is feeling very anxious ?do not like to be in the hospital in ?patient is crying and hyperventilating, I spoke with the patient to calm her down, patient now is more calm, we will give the patient Klonopin she normally takes for her anxiety, labs and workup today is unremarkable except for lung nodules, and leukocytosis patient is taking prednisone. that the patient made aware and the need for repeat x-ray of the lung in 1 month by her PCP. MDM - SOB/Dyspnea Lab Data Attestation: I reviewed the patient's lab results. Result diagrams: 03/18/21 18:45 03/18/21 18:45 Labs: Lab Results 03/18/21 03/18/21 03/18/21 Range/Units 18:45 18:45 18:45 WBC 15.8 H (4.8-10.8) X10*3/uL RBC 4.02 L (4.20-5.50) X10*6/uL Hgb 11.7 L (12.0-16.0) g/dl Hct 35.6 L (37-47) % MCV 88.6 (80-98) fL MCH 29.1 (27.0-33.0) pg MCHC 32.9 (31.0-35.0) g/dl RDW 13.1 (11.0-16.0) % Plt Count 358 D (160-400) X10*3/uL MPV 8.9 L (9.4-12.3) fL Immature Gran % (Auto) 0.4 (0.0-0.4) % Neut % (Auto) 75.2 H (45-73) % Lymph % (Auto) 18.4 L (20-40) % [place] % (Auto) 5.6 (2-11) % Eos % (Auto) 0.3 (0-4) % Baso % (Auto) 0.1 (0-2) % Lymph # (Auto) 2.9 (1.2-4.9) X10*3/uL [place] # (Auto) 0.9 (0.1-1.2) X10*3/uL Eos # (Auto) 0.0 (0.0-0.4) X10*3/uL Baso # (Auto) 0.0 (0.0-0.2) X10*3/uL Abs Immat Gran (auto) 0.07 H (0.00-0.03) X10*3/uL Absolute Neuts (auto) 11.9 H (2.0-8.3) X10*3/uL Absolute Nucleated RBC 0.000 (0.0-0.012) X10*3/uL Nucleated RBC % (auto) 0.0 (0.0-0.2) /100WBC D-Dimer 240 NG/ML Sodium 138 (135-145) mmol/L Potassium 3.5 D (3.3-5.1) mmol/L Chloride 106 (96-108) mmol/L Carbon Dioxide 20 L (22-29) mmol/L Anion Gap 16 (12-20) BUN 16 (9-16) mg/dL Creatinine 0.80 (0.5-1.4) mg/dL Estim Creat Clear Calc 112.3 Estimated GFR > 60 Random Glucose 113 (60-115) mg/dL Calcium 9.1 (8.4-10.2) mg/dL Total Bilirubin 0.2 (0.0-1.0) mg/dL Direct Bilirubin < 0.2 (0.0-0.5) mg/dL AST 8 D (5-31) U/L ALT 13 (0-31) U/L Alkaline Phosphatase 112 D (39-117) U/L Troponin I High Sens (<3.5-17.0) ng/L B-Natriuretic Peptide (<100) pg/mL Total Protein 7.1 (6.5-8.0) g/dL Albumin 4.3 (3.5-5.0) g/dL Lipase 21 (8-78) U/L 03/18/21 Range/Units 18:45 WBC (4.8-10.8) X10*3/uL RBC (4.20-5.50) X10*6/uL Hgb (12.0-16.0) g/dl Hct (37-47) % MCV (80-98) fL MCH (27.0-33.0) pg MCHC (31.0-35.0) g/dl RDW (11.0-16.0) % Plt Count (160-400) X10*3/uL MPV (9.4-12.3) fL Immature Gran % (Auto) (0.0-0.4) % Neut % (Auto) (45-73) % Lymph % (Auto) (20-40) % [place] % (Auto) (2-11) % Eos % (Auto) (0-4) % Baso % (Auto) (0-2) % Lymph # (Auto) (1.2-4.9) X10*3/uL [place] # (Auto) (0.1-1.2) X10*3/uL Eos # (Auto) (0.0-0.4) X10*3/uL Baso # (Auto) (0.0-0.2) X10*3/uL Abs Immat Gran (auto) (0.00-0.03) X10*3/uL Absolute Neuts (auto) (2.0-8.3) X10*3/uL Absolute Nucleated RBC (0.0-0.012) X10*3/uL Nucleated RBC % (auto) (0.0-0.2) /100WBC D-Dimer NG/ML Sodium (135-145) mmol/L Potassium (3.3-5.1) mmol/L Chloride (96-108) mmol/L Carbon Dioxide (22-29) mmol/L Anion Gap (12-20) BUN (9-16) mg/dL Creatinine (0.5-1.4) mg/dL Estim Creat Clear Calc Estimated GFR Random Glucose (60-115) mg/dL Calcium (8.4-10.2) mg/dL Total Bilirubin (0.0-1.0) mg/dL Direct Bilirubin (0.0-0.5) mg/dL AST (5-31) U/L ALT (0-31) U/L Alkaline Phosphatase (39-117) U/L Troponin I High Sens < 3.5 (<3.5-17.0) ng/L B-Natriuretic Peptide 18 (<100) pg/mL Total Protein (6.5-8.0) g/dL Albumin (3.5-5.0) g/dL Lipase (8-78) U/L Imaging Data Chest x-ray: Radiologist's impression: Small rounded nodular density that was not seen on the chest radiograph from 10 days ago. This could be inflammatory recommend repeat PA and lateral chest radiograph in one month. ECG Data Interpretation: Normal sinus rhythm at 95 beats per minute, normal axis deviation, normal intervals, no ST-T changes. Discharge Plan Discharge Clinical Impression: Anxiety, Chest pain, Lung nodule Patient Disposition: Home, Self-Care Instructions: Anxiety (ED), Pulmonary Nodules (ED) Prescriptions: No Action omeprazole 20 mg capsule,delayed release(DR/EC) 20 mg PO DAILY Qty: 30 RF: 1 albuterol sulfate 2.5 mg /3 mL (0.083 %) solution for nebulization 2.5 mg inhalation Q4-6H PRNRF: 0 albuterol sulfate 90 mcg/actuation HFA aerosol inhaler 2 puff inhalation QID PRN (Reason: Shorness of breath) Qty: 8.5 RF: 2 prazosin 1 mg capsule 1 mg PO .COMPLEX Qty: 90 RF: 0 risperidone 0.5 mg tablet 0.5 mg PO .COMPLEX 30 Days Qty: 45 RF: 2 sertraline 50 mg tablet 50 mg PO DAILY Qty: 30 RF: 2 hyoscyamine sulfate 0.125 mg tablet 0.25 mg PO QID PRN (Reason: dyspepsia) Qty: 7 RF: 0 cephalexin 500 mg capsule 500 mg PO QID Qty: 28 RF: 0 prazosin 2 mg capsule 2 mg PO BEDTIME RF: 0 gabapentin 400 mg capsule 400 mg PO TID RF: 0 buprenorphine-naloxone [Suboxone] 8-2 mg film 1 film sublingual DAILY Qty: 42 RF: 0 Referrals: Vincent Hayes, MACHINE MAINTENANCE MECH[employer]IC[employer] [Primary Care Provider] - 2 days (Need to repeat chest x-ray in 1 month)
[2021-03-18 18:50] LABS: Basophils Percent Auto 0.1 % (0-2); Eosinophils Percent Auto 0.3 % (0-4); Hematocrit 35.6 % (37-47); Hemoglobin 11.7 g/dl (12.0-16.0); Imm Gran Abs Auto 0.07 X10*3/uL (0.00-0.03); Imm Gran Pct Auto 0.4 % (0.0-0.4); Lymphocytes Absolute Auto 2.9 X10*3/uL (1.2-4.9); Lymphocytes Percent Auto 18.4 % (20-40); MANUAL DIFF FLAG NO; Mean Corpuscular HGB Conc 32.9 g/dl (31.0-35.0); Mean Corpuscular Hemoglobin 29.1 pg (27.0-33.0); Mean Corpuscular Volume 88.6 fL (80-98); Mean Platelet Volume 8.9 fL (9.4-12.3); Monocytes Absolute Auto 0.9 X10*3/uL (0.1-1.2); Monocytes Percent Auto 5.6 % (2-11); Neutrophils Absolute Auto 11.9 X10*3/uL (2.0-8.3); Neutrophils Percent Auto 75.2 % (45-73); Platelet Count 358 X10*3/uL (160-400); Red Blood Count 4.02 X10*6/uL (4.20-5.50); Red Cell Distribution Width 13.1 % (11.0-16.0); White Blood Count 15.8 X10*3/uL (4.8-10.8)
[2021-03-18 18:59] LABS: D Dimer 240 NG/ML
[2021-03-18 19:21] LABS: Alanine Aminotransferase 13 U/L (0-31); Albumin Level 4.3 g/dL (3.5-5.0); Alkaline Phosphatase 112 U/L (39-117); Anion Gap 16 (12-20); Aspartate Amino Transferase 8 U/L (5-31); B Type Natriuretic Peptide 18 pg/mL (<100); Blood Urea Nitrogen 16 mg/dL (9-16); Calcium 9.1 mg/dL (8.4-10.2); Carbon Dioxide 20 mmol/L (22-29); Chloride 106 mmol/L (96-108); Creatinine Clr Calc Pharmacy 112.3; Estimated Glomerular Filt Rate > 60; Glucose Random 113 mg/dL (60-115); Lipase 21 U/L (8-78); Potassium 3.5 mmol/L (3.3-5.1); Sodium 138 mmol/L (135-145); Total Protein 7.1 g/dL (6.5-8.0); Troponin-I High Sensitivity < 3.5 ng/L (<3.5-17.0)
[2021-03-18 19:34] LABS: Bilirubin Direct < 0.2 mg/dL (0.0-0.5); Bilirubin Total 0.2 mg/dL (0.0-1.0)
[2021-03-18] MEDS: clonazePAM 0.5 MG TABLET PO (20:04)
--- NOTE | 2021-03-18 20:48 | PC.NURSE ---
PT ANXIOUS, REQUESTED HER HOME DOSE OF CLONAZEPAM. PT UNABLE TO PROVIDE A URINE SAMPLE. PT IN NO DISTRESS. PT AMBULATORY WITH NO DIFFICULTY.
== END 2021-03-18 20:50 | disposition home or self-care (01) ==
PROVIDERS: Emergency Provider Emergency Medicine; PCP Nurse Practitioner Family
DX: R07.9 Chest pain, unspecified (principal); F41.9 Anxiety disorder, unspecified; R91.1 Solitary pulmonary nodule; R06.02 Shortness of breath; F17.210 Nicotine dependence, cigarettes, uncomplicated; Z87.01 Personal history of pneumonia (recurrent)
CPT/HCPCS: 36415; 71045; 80048; 80076; 83690; 83880; 84484; 85025; 85379; 93005; 99284

== ENCOUNTER 2021-03-30 19:31 | Emergency (ER) | payer OTHER, SELFPAY ==
[2021-03-30 19:51] VITALS: BP 125/74; BP 95/71; PULSE 125; PULSE 126; RESP 17; TEMP 37.4; O2SAT 95; O2SAT 97; BMI 29.1
--- NOTE | 2021-03-30 20:21 | PC.NURSE ---
Danica Vázquez (silver recovery operator): [phone] Bri Pappas (pt's mother): [phone]
--- NOTE | 2021-03-30 20:23 | ED_ITS ---
HPI - Psych General Chief Complaint: Psychiatric Symptoms Stated Complaint: crisis Time Seen by Provider: 03/30/21 20:18 Source: patient and EMS Mode of arrival: EMS Limitations: no limitations History of Present Illness HPI Narrative: parents giving patient a hard time about a new medication claiming she is using again. complaint: anxiety Onset (ago): day(s) (after 2 days) Duration: constant History of same: Yes Relieving factors: none Exacerbating factors: none Context: new medication(s) Associated symptoms: other (feels groggy) Treatments prior to arrival: none Related Data Home Medications Medication Instructions Recorded Confirmed albuterol sulfate 2.5 mg INHALATION Q4-6H PRN 07/04/20 03/08/21 prazosin 2 mg capsule 2 mg PO BEDTIME 03/08/21 03/08/21 buprenorphine 8 mg-naloxone 2 mg 1 strip SUBLINGUAL BID 03/30/21 03/30/21 sublingual film (Suboxone) cariprazine 1.5 mg capsule 1 cap PO BEDTIME 03/30/21 (Vraylar) cyclobenzaprine 5 mg tablet 1.5 tab PO TID 03/30/21 gabapentin 600 mg tablet 1 tab PO TID 03/30/21 omeprazole 40 mg capsule,delayed 1 cap PO DAILY 03/30/21 release prazosin 1 mg capsule 1 mg PO DAILY 03/30/21 prednisone 10 mg tablet mg PO DIRECTED 03/30/21 Previous Rx's Medication Instructions Recorded risperidone 0.5 mg tablet 0.5 mg PO .COMPLEX 30 Days #45 tab 02/01/21 sertraline 50 mg tablet 50 mg PO DAILY #30 tab 02/01/21 nicotine 14 mg/24 hr daily 1 patch TRANSDERMAL DAILY #14 ea 03/30/21 transdermal patch Allergies Allergy/AdvReac Type Severity Reaction Status Date / Time latex [LATEX] Allergy Intermediate RASH Verified 03/30/21 20:17 adhesive tape [ADHESIVE TAPE] AdvReac Intermediate RASH Verified 03/30/21 20:17 Review of Systems Review of Systems: Constitutional : No Weight loss, No Fever, No Chills, No Fatigue, No Malaise ENT/Mouth : No sore throat, No Rhinorrhea Eyes: No Eye Pain, No Swelling, No Redness Cardiovascular : No Chest Pain, No SOB, No Dyspnea on Exertion, No Orthopnea, No Edema, No Palpitations Respiratory : No Cough, No Sputum, No Wheezing Gastrointestinal : No Nausea, No Vomiting, No Diarrhea, No Constipation, No abdominal Pain, No Hematochezia, No Melena Genitourinary : No Dysuria, No Urinary Frequency, No Hematuria, Musculoskeletal : No joint pain, No Myalgias, No Joint Swelling Skin : No Skin Lesions, No rash Neuro : No Weakness, No Numbness, No Dizziness, No Headache Psych : pos Anxiety/Panic, No Depression Heme/Lymph: No Bruising, No Bleeding,No Lymphadenopathy Endocrine : No Polyuria, No Polydipsia All other systems reviewed and are negative [facility] Past Medical History Attestation statement: The following information was validated with the patient. Medical History Anxiety Asthma Bipolar disorder Crohn's disease Depression GERD (gastroesophageal reflux disease) Hx of substance abuse PTSD (post-traumatic stress disorder) Family History Family History Father Colon cancer Mother No problems noted. Brother Autism Sister Bipolar disorder Maternal Aunt Breast cancer Social History Social History Household Members: Significant Other Housing: Other Alcohol intake: current Alcohol intake frequency: does not drink Patient Tobacco Use Status: Current everyday Tobacco user Tobacco use type: Cigarette Cigarettes Per Day: 5 Years Smoked: 8 e-Cigarette/Vaping Use: Never Used Advance Directives: No Patient : No Current occupational status: unemployed Physical Exam Vital Signs: Vital Signs: Last Vital Signs Temp 99.4 F 03/30/21 19:51 Pulse 126 H 03/30/21 19:51 Resp 17 03/30/21 19:51 BP 95/71 03/30/21 19:51 Pulse Ox 95 03/30/21 19:51 Body Mass Index 29.1 Appearance: Alert. Oriented X3. No acute distress. Anxious and tearful Eyes: Pupils equal, round and reactive to light. ENT: Pharynx normal. Neck: Normal inspection. Neck supple. CVS: Normal heart rate and rhythm. Pulses normal. Respiratory: No respiratory distress. Breath sounds normal. Abdomen: Soft and nontender. Skin: Skin warm and dry. Normal skin color. Normal skin turgor. Extremities: No lower extremity edema. No calf ttp Neuro: Oriented X 3. No motor deficit. No sensory deficit. MDM - Psych MDM Narrative Medical decision making narrative: 25 yo female with hx of asthma, mental health issues, here with no SI, at this she is clinically sober, no SI/HI, can be managed as outpatient, she does not meet criteria for inpatient care or a section 12 Discharge Plan Discharge Clinical Impression: Acute anxiety Patient Disposition: Home, Self-Care Instructions: Anxiety (ED) Additional Instructions: return to ED for any worsening symptoms or concerns please follow up with your psychiatrist in the AM hold vraybakari at this time Prescriptions: No Action albuterol sulfate 2.5 mg /3 mL (0.083 %) solution for nebulization 2.5 mg inhalation Q4-6H PRNRF: 0 risperidone 0.5 mg tablet 0.5 mg PO .COMPLEX 30 Days Qty: 45 RF: 2 sertraline 50 mg tablet 50 mg PO DAILY Qty: 30 RF: 2 nicotine 14 mg/24 hr patch 24 hour 1 patch transdermal DAILY Qty: 14 RF: 0 prednisone 10 mg tablet PO DIRECTED RF: 0 gabapentin 600 mg tablet 1 tab PO TID RF: 0 omeprazole 40 mg capsule,delayed release(DR/EC) 1 cap PO DAILY RF: 0 cyclobenzaprine 5 mg tablet 1.5 tab PO TID RF: 0 buprenorphine-naloxone [Suboxone] 8-2 mg film 1 strip sublingual BID RF: 0 Vraylar 1.5 mg capsule 1 cap PO BEDTIME RF: 0 prazosin 1 mg capsule 1 mg PO DAILY RF: 0 prazosin 2 mg capsule 2 mg PO BEDTIME RF: 0
--- NOTE | 2021-03-30 20:55 | PC.NURSE ---
to bedside speaking with patient. Section 12 NOT appropriate for patient at this time. Spoke with patient's mother (Bri Pappas), aware of plan to discharge home. Pt ambulates around ED with steady gait, speaking in clear/full sentences and is cooperative and in overall behavioral control.
--- NOTE | 2021-03-30 20:58 | PC.NURSE ---
Pt attempting to obtain ride home from family at this time. Instructed to let this RN know when ride is secured. Pt cleared for discharge by .
[2021-03-30 21:28] LABS: Glucose Urine UA NEG (NEG); Leukocyte Esterase Urine NEG (NEG); Nitrite Urine NEG (NEG); Urine Blood NEG (NEG); Urine Ketones 5 MG/DL (NEG); Urine Protein NEG (NEG-TRACE)
[2021-03-30 21:29] LABS: Appearance Urine HAZY; Color Urine YELLOW
[2021-03-30 21:30] LABS: UPreg QC Valid YES; Urine Pregnancy NEGATIVE (NEGATIVE)
== END 2021-03-30 21:38 | disposition home or self-care (01) ==
PROVIDERS: Emergency Provider Emergency Medicine; PCP Nurse Practitioner Family
DX: F41.9 Anxiety disorder, unspecified (principal); J45.909 Unspecified asthma, uncomplicated; Z79.899 Other long term (current) drug therapy
CPT/HCPCS: 36415; 81003; 81025; 99283; 99284

== ENCOUNTER 2021-04-05 15:17 | Emergency (ER) | payer OTHER, SELFPAY ==
--- NOTE | ~2021-04-05 | XR_ITS ---
EXAMINATION: XR CHEST CLINICAL INFORMATION: Cough and wheezing COMPARISON: March 18, 2021 TECHNIQUE: 2 views of the chest were obtained. FINDINGS: No significant abnormality is noted involving the heart, lungs, mediastinum, bony thorax or soft tissues. XR/XR chest 2V IMPRESSION: No acute disease.
[2021-04-05 15:28] VITALS: BP 125/81; PULSE 102; RESP 16; TEMP 36.7; O2SAT 88; O2SAT 93; BMI 28.3
--- NOTE | 2021-04-05 15:39 | ECG_ITS ---
Test Reason : OVERDOSE Blood Pressure : / mmHG Vent. Rate : 100 BPM Atrial Rate : 100 BPM P-R Int : 172 ms QRS Dur : 084 ms QT Int : 346 ms P-R-T Axes : 069 054 062 degrees QTc Int : 446 ms Normal sinus rhythm Possible Left atrial enlargement Borderline ECG When compared with ECG of 18-MAR-2021 17:59, No significant change was found Referred By: Sabina Butler Electronically Signed By:SLICK YEE MD
--- NOTE | 2021-04-05 15:43 | ED_ITS ---
HPI - Overdose General Chief Complaint: Overdose Stated Complaint: overdose Time Seen by Provider: 04/05/21 15:28 Source: EMS Mode of arrival: EMS Limitations: no limitations History of Present Illness HPI Narrative: 25 yo female with past medical history of asthma, PTSD, opiate use disorder on Suboxone 16 mg daily, Crohn's disease here with complaints of drug overdose. Patient tells me she took her Suboxone this morning and then sips 2 bags of heroin. She tells me her mom was concerned as she was nodding off and had slurred speech. Patient was then transported to the hospital. Of note patient also complaining of some cough, shortness of breath for the last few days. History of asthma with multiple admits. Last admit when hospital February 2021 requiring ICU for pneumonia/asthma exacerbation. Currently a prednisone taper current daily dose is 50 mg. Productive. cough with green sputum. No fevers or chills. No chest pain. No leg swelling or pain. Patient upset about using heroin. Prior today shows me she was sober for 8 months. She denies any additional substance use.. Related Data Home Medications Medication Instructions Recorded Confirmed albuterol sulfate 2.5 mg INHALATION Q4-6H PRN 07/04/20 03/30/21 buprenorphine 8 mg-naloxone 2 mg 1 strip SUBLINGUAL BID 03/30/21 03/30/21 sublingual film (Suboxone) cariprazine 1.5 mg capsule 1 cap PO BEDTIME 03/30/21 03/30/21 (Vraylar) cyclobenzaprine 5 mg tablet 1.5 tab PO TID 03/30/21 03/30/21 gabapentin 600 mg tablet 1 tab PO TID 03/30/21 03/30/21 omeprazole 40 mg capsule,delayed 1 cap PO BEDTIME 03/30/21 03/30/21 release prazosin 2 mg capsule 1 cap PO BEDTIME 03/30/21 03/30/21 prednisone 10 mg tablet 40 mg PO DAILY 03/30/21 03/30/21 Previous Rx's Medication Instructions Recorded risperidone 0.5 mg tablet 0.5 mg PO .COMPLEX 30 Days #45 tab 02/01/21 sertraline 50 mg tablet 50 mg PO DAILY #30 tab 02/01/21 nicotine 14 mg/24 hr daily 1 patch TRANSDERMAL DAILY #14 ea 03/30/21 transdermal patch Allergies Allergy/AdvReac Type Severity Reaction Status Date / Time latex [LATEX] Allergy Intermediate RASH Verified 03/30/21 20:17 adhesive tape [ADHESIVE TAPE] AdvReac Intermediate RASH Verified 03/30/21 20:17 Review of Systems Review of Systems: Yes all other systems are reviewed and are negative Constitutional: Constitutional: Reports no additional constitutional complaints, Denies body ache(s), Denies chills, Denies fever(s), Denies headache(s) and Denies weakness Eyes: Eyes: Reports no additional eye complaints and Denies change in vision ENT: Reports system reviewed and no additional complaints, except as documented, Denies dizziness, Denies headache(s), Denies nasal congestion, Denies nasal discharge and Denies neck pain Cardiovascular: Cardiovascular: Reports no additional cardiovascular complaints, Denies chest pain, Denies leg edema and Reports dyspnea Respiratory: Respiratory: Reports no additional respiratory complaints, Re ports cough and Reports dyspnea Gastrointestinal: Gastrointestinal: Reports no additional gastrointestinal complaints, Denies abdominal pain, Denies diarrhea, Denies nausea and Denies vomiting Genitourinary: Genitourinary: Reports no additional female genitourinary complaints and Denies urinary incontinence Musculoskeletal: Musculoskeletal: Reports no additional musculoskeletal complaints, Denies back pain, Denies arthralgias, Denies joint swelling, Denies neck pain, Denies numbness and Denies tingling Integumentary/Breasts: Skin/Breast: Reports system reviewed and no additional complaints, except as docu and Denies rash Neurologic: Reports system reviewed and no additional complaints, except as documented, Denies Abnormal speech present, Denies dizziness, Denies headache(s), Denies numbness, Denies tingling and Denies weakness [facility] Past Medical History Attestation statement: The following information was validated with the patient. Source: old records reviewed and nursing notes reviewed Medical History Anxiety Asthma Bipolar disorder Crohn's disease Depression GERD (gastroesophageal reflux disease) Hx of substance abuse PTSD (post-traumatic stress disorder) Family History Family History Father Colon cancer Mother No problems noted. Brother Autism Sister Bipolar disorder Maternal Aunt Breast cancer Social History Social History Household Members: Significant Other Housing: Other Alcohol intake: current Alcohol intake frequency: does not drink Patient Tobacco Use Status: Current everyday Tobacco user Tobacco use type: Cigarette Cigarettes Per Day: 5 Years Smoked: 8 e-Cigarette/Vaping Use: Never Used Current occupational status: unemployed Physical Exam Vital Signs: Vital Signs: Last Vital Signs Temp 98.1 F 04/05/21 15:28 Pulse 102 H 04/05/21 18:03 Resp 16 04/05/21 18:03 BP 131/72 04/05/21 18:03 Pulse Ox 98 04/05/21 18:03 Body Mass Index 28.3 Const: General: cooperative, healthy appearing, comfortable and no acute distress Orientation/consciousness: patient oriented x3 Limitations: no limitations HENMT: Head: Yes normal to inspection Ears: hearing grossly normal bilaterally General nose exam: Normal external nose present Face and sinus: Yes normal facial exam Mouth: Normal oral and palatal mucosa present Throat: Yes posterior oropharynx normal Eyes: General: appearance normal, both eyes and all related structures Pupils: Equal, round and reactive pupils present Neck: Neck: Yes normal visual inspection Chest: Chest palpation & inspection: normal inspection of the chest Resp: Other: Inspiratory expiratory wheezing throughout. Effort & Inspection: normal respiratory effort Cardio: Rate: regular rate Rhythm: regular rhythm Peripheral pulses: Peripheral pulses 2+ throughout GI: Inspection: Yes normal to inspection Palpation (GI): Soft to palpation and nontender Auscultation: normal bowel sounds Back/Spine/Pelvis: Thoracic/Lumbar Spine: thoracic and lumbar spine normal to inspection Skin: General skin exam: no rashes or lesions noted Neuro: General: patient oriented x3, no focal motor deficits and normal sensation to monofilament Cranial nerves: Yes Equal, round and reactive pupils present Cognition (Neuro): normal cognition Speech: No Abnormal speech present Gait exam (Neuro): Normal gait present Motor exam (neuro): 5/5 motor strength present throughout Extrem: General: Yes normal to inspection, Yes no pedal edema and Yes no calf tenderness Course Course Course Narrative: 25-year-old female here with complaints of productive cough, shortness of breath for several days. She has been using her nebulizers and 50 mg of prednisone daily with continued symptoms. History multiple meds for asthma exacerbation. Most recently required ICU admit [facility] for pneumonia in addition to asthma exacerbation. No fevers or chills. Of note, use some heroin today. Mom called the ambulance as the patient was nodding off and more lethargic from baseline. Patient tells me that she has been sober for 8 months and taking Suboxone until today when she ?slipped up. No additional substance use. No SI or HI. Will check labs, chest x-ray, EKG, COVID screen. Will give DuoNeb, Solu-Medrol and magnesium. [id number] the patient. Her labs unremarkable. EKG shows no acute findings. Chest x-ray is negative for infection. COVID screen negative. Patient is complaining of some nausea. We discussed this is likely multifactorial from her mixing Suboxone and heroin and may be precipitated withdrawal. Will give Zofran and reassess. Repeat lung exam shows mild expiratory wheezing but much improved overall. Will perform ambulatory oxygen saturation eval. 1999-patient ambulated in the department with an oxygen saturation greater than 96%. Her mom is at the bedside and we had a lengthy conversation. Her urine tox is positive for fentanyl, opiates, thc. The patient was unaware that she used fentanyl today. She plans to go to a sober house on Friday. She is currently on Suboxone. Does not feel like she needs inpatient detox. No suicidal or homicidal thoughts. Mom is very concerned about her substance use. I shared her concern. She was given Narcan for home. Explained to mom if she becomes more concerned she may petition the court for a Section 35. Reviewed worrisome signs and symptoms of when to return to the emergency department. Comfortable discharge home. MDM - Overdose Medical Records Attestation: I reviewed the patient's medical records. Lab Data Attestation: I reviewed the patient's lab results. Result diagrams: 04/05/21 16:03 04/05/21 16:03 Labs: Lab Results 04/05/21 04/05/21 04/05/21 Range/Units 16:03 16:03 16:03 WBC 6.0 (4.8-10.8) X10*3/uL RBC 3.79 L (4.20-5.50) X10*6/uL Hgb 10.7 L (12.0-16.0) g/dl Hct 33.0 L (37-47) % MCV 87.1 (80-98) fL MCH 28.2 (27.0-33.0) pg MCHC 32.4 (31.0-35.0) g/dl RDW 12.7 (11.0-16.0) % Plt Count 360 (160-400) X10*3/uL MPV 9.2 L (9.4-12.3) fL Immature Gran % (Auto) 0.2 (0.0-0.4) % Neut % (Auto) 46.7 (45-73) % Lymph % (Auto) 37.4 (20-40) % [place] % (Auto) 8.7 (2-11) % Eos % (Auto) 6.7 H (0-4) % Baso % (Auto) 0.3 (0-2) % Lymph # (Auto) 2.2 (1.2-4.9) X10*3/uL [place] # (Auto) 0.5 (0.1-1.2) X10*3/uL Eos # (Auto) 0.4 (0.0-0.4) X10*3/uL Baso # (Auto) 0.0 (0.0-0.2) X10*3/uL Abs Immat Gran (auto) 0.01 (0.00-0.03) X10*3/uL Absolute Neuts (auto) 2.8 (2.0-8.3) X10*3/uL Absolute Nucleated RBC 0.000 (0.0-0.012) X10*3/uL Nucleated RBC % (auto) 0.0 (0.0-0.2) /100WBC Sodium 141 (135-145) mmol/L Potassium 4.2 (3.3-5.1) mmol/L Chloride 107 (96-108) mmol/L Carbon Dioxide 23 (22-29) mmol/L Anion Gap 15 (12-20) BUN 16 (9-16) mg/dL Creatinine 0.88 (0.5-1.4) mg/dL Estim Creat Clear Calc 102.1 Estimated GFR > 60 Random Glucose 120 H (60-115) mg/dL Calcium 9.0 (8.4-10.2) mg/dL Total Bilirubin 0.2 (0.0-1.0) mg/dL Direct Bilirubin < 0.2 (0.0-0.5) mg/dL AST 13 D (5-31) U/L ALT 12 (0-31) U/L Alkaline Phosphatase 98 (39-117) U/L Troponin I High Sens (<3.5-17.0) ng/L Total Protein 6.5 (6.5-8.0) g/dL Albumin 4.0 (3.5-5.0) g/dL Urine Color Urine Appearance Urine pH (5.0-8.0) Ur Specific [place] (1.005-1.025) Urine Protein (NEG-TRACE) MG/DL Urine Glucose (UA) (NEG) MG/DL Urine Ketones (NEG) MG/DL Urine Blood (NEG) Urine Nitrite (NEG) Ur Leukocyte Esterase (NEG) Urine Test (NEGATIVE) Urine Opiates Screen (Not Detect) Urine Fentanyl Screen (Not Detect) Ur Barbiturates Screen (Not Detect) Ur Phencyclidine Scrn (Not Detect) Ur Amphetamines Screen (Not Detect) U Benzodiazepines Scrn (Not Detect) Urine Cocaine Screen (Not Detect) U Marijuana (THC) Screen (Not Detect) Ethyl Alcohol mg/dL 04/05/21 04/05/21 04/05/21 Range/Units 16:03 16:03 18:09 WBC (4.8-10.8) X10*3/uL RBC (4.20-5.50) X10*6/uL Hgb (12.0-16.0) g/dl Hct (37-47) % MCV (80-98) fL MCH (27.0-33.0) pg MCHC (31.0-35.0) g/dl RDW (11.0-16.0) % Plt Count (160-400) X10*3/uL MPV (9.4-12.3) fL Immature Gran % (Auto) (0.0-0.4) % Neut % (Auto) (45-73) % Lymph % (Auto) (20-40) % [place] % (Auto) (2-11) % Eos % (Auto) (0-4) % Baso % (Auto) (0-2) % Lymph # (Auto) (1.2-4.9) X10*3/uL [place] # (Auto) (0.1-1.2) X10*3/uL Eos # (Auto) (0.0-0.4) X10*3/uL Baso # (Auto) (0.0-0.2) X10*3/uL Abs Immat Gran (auto) (0.00-0.03) X10*3/uL Absolute Neuts (auto) (2.0-8.3) X10*3/uL Absolute Nucleated RBC (0.0-0.012) X10*3/uL Nucleated RBC % (auto) (0.0-0.2) /100WBC Sodium (135-145) mmol/L Potassium (3.3-5.1) mmol/L Chloride (96-108) mmol/L Carbon Dioxide (22-29) mmol/L Anion Gap (12-20) BUN (9-16) mg/dL Creatinine (0.5-1.4) mg/dL Estim Creat Clear Calc Estimated GFR Random Glucose (60-115) mg/dL Calcium (8.4-10.2) mg/dL Total Bilirubin (0.0-1.0) mg/dL Direct Bilirubin (0.0-0.5) mg/dL AST (5-31) U/L ALT (0-31) U/L Alkaline Phosphatase (39-117) U/L Troponin I High Sens < 3.5 (<3.5-17.0) ng/L Total Protein (6.5-8.0) g/dL Albumin (3.5-5.0) g/dL Urine Color COLORLESS Urine Appearance CLEAR Urine pH 6.0 (5.0-8.0) Ur Specific Dudley <= 1.005 (1.005-1.025) Urine Protein NEG (NEG-TRACE) MG/DL Urine Glucose (UA) NEG (NEG) MG/DL Urine Ketones NEG (NEG) MG/DL Urine Blood NEG (NEG) Urine Nitrite NEG (NEG) Ur Leukocyte Esterase NEG (NEG) Urine Test (NEGATIVE) Urine Opiates Screen (Not Detect) Urine Fentanyl Screen (Not Detect) Ur Barbiturates Screen (Not Detect) Ur Phencyclidine Scrn (Not Detect) Ur Amphetamines Screen (Not Detect) U Benzodiazepines Scrn (Not Detect) Urine Cocaine Screen (Not Detect) U Marijuana (THC) Screen (Not Detect) Ethyl Alcohol < 10 mg/dL 04/05/21 04/05/21 Range/Units 18:09 18:09 WBC (4.8-10.8) X10*3/uL RBC (4.20-5.50) X10*6/uL Hgb (12.0-16.0) g/dl Hct (37-47) % MCV (80-98) fL MCH (27.0-33.0) pg MCHC (31.0-35.0) g/dl RDW (11.0-16.0) % Plt Count (160-400) X10*3/uL MPV (9.4-12.3) fL Immature Gran % (Auto) (0.0-0.4) % Neut % (Auto) (45-73) % Lymph % (Auto) (20-40) % [place] % (Auto) (2-11) % Eos % (Auto) (0-4) % Baso % (Auto) (0-2) % Lymph # (Auto) (1.2-4.9) X10*3/uL [place] # (Auto) (0.1-1.2) X10*3/uL Eos # (Auto) (0.0-0.4) X10*3/uL Baso # (Auto) (0.0-0.2) X10*3/uL Abs Immat Gran (auto) (0.00-0.03) X10*3/uL Absolute Neuts (auto) (2.0-8.3) X10*3/uL Absolute Nucleated RBC (0.0-0.012) X10*3/uL Nucleated RBC % (auto) (0.0-0.2) /100WBC Sodium (135-145) mmol/L Potassium (3.3-5.1) mmol/L Chloride (96-108) mmol/L Carbon Dioxide (22-29) mmol/L Anion Gap (12-20) BUN (9-16) mg/dL Creatinine (0.5-1.4) mg/dL Estim Creat Clear Calc Estimated GFR Random Glucose (60-115) mg/dL Calcium (8.4-10.2) mg/dL Total Bilirubin (0.0-1.0) mg/dL Direct Bilirubin (0.0-0.5) mg/dL AST (5-31) U/L ALT (0-31) U/L Alkaline Phosphatase (39-117) U/L Troponin I High Sens (<3.5-17.0) ng/L Total Protein (6.5-8.0) g/dL Albumin (3.5-5.0) g/dL Urine Color Urine Appearance Urine pH (5.0-8.0) Ur Specific [place] (1.005-1.025) Urine Protein (NEG-TRACE) MG/DL Urine Glucose (UA) (NEG) MG/DL Urine Ketones (NEG) MG/DL Urine Blood (NEG) Urine Nitrite (NEG) Ur Leukocyte Esterase (NEG) Urine Test NEGATIVE (NEGATIVE) Urine Opiates Screen POSITIVE H (Not Detect) Urine Fentanyl Screen POSITIVE H (Not Detect) Ur Barbiturates Screen Not Detected (Not Detect) Ur Phencyclidine Scrn Not Detected (Not Detect) Ur Amphetamines Screen Not Detected (Not Detect) U Benzodiazepines Scrn Not Detected (Not Detect) Urine Cocaine Screen Not Detected (Not Detect) U Marijuana (THC) Screen POSITIVE H (Not Detect) Ethyl Alcohol mg/dL Imaging Data Chest x-ray: Attestation: I personally reviewed and interpreted this imaging study as follows: Radiologist's impression: [place] [id number] XRay Report Signed Patient: Christa Daigle MR#: [id number] : 1995 Acct:[id number] Age/Sex: 25 / F ADM Date: 04/05/21 Loc: .ED Attending Dr: Ordering Physician: MIGUELITO CRABTREE NP Date of Service: 04/05/21 Procedure(s): XR chest 2V Accession Number(s): [id number] cc: MIGUELITO CRABTREE NP~ EXAMINATION: XR CHEST CLINICAL INFORMATION: Cough and wheezing COMPARISON: March 18, 2021 TECHNIQUE: 2 views of the chest were obtained. FINDINGS: No significant abnormality is noted involving the heart, lungs, mediastinum, bony thorax or soft tissues. XR/XR chest 2V IMPRESSION: No acute disease. ECG Data Attestation: I personally reviewed and interpreted this ECG as follows: ECG interpretation date: 04/05/21 ECG interpretation time: 15:55 Interpretation: Normal sinus rhythm with a rate of 100, normal DC, normal QRS, normal QT Discharge Plan Discharge Clinical Impression: Opioid use disorder, Asthma exacerbation Patient Disposition: Home, Self-Care Instructions: Asthma (ED), Opioid Use Disorder (ED) Additional Instructions: Your urine tox is positive for fentanyl Continue your albuterol nebulizers and prednisone daily Follow-up with your primary and chemistry associate Prescriptions: No Action albuterol sulfate 2.5 mg /3 mL (0.083 %) solution for nebulization 2.5 mg inhalation Q4-6H PRN (Reason: Wheezing) RF: 0 risperidone 0.5 mg tablet 0.5 mg PO .COMPLEX 30 Days Qty: 45 RF: 2 sertraline 50 mg tablet 50 mg PO DAILY Qty: 30 RF: 2 nicotine 14 mg/24 hr patch 24 hour 1 patch transdermal DAILY Qty: 14 RF: 0 prednisone 10 mg tablet 40 mg PO DAILY RF: 0 gabapentin 600 mg tablet 1 tab PO TID RF: 0 omeprazole 40 mg capsule,delayed release(DR/EC) 1 cap PO BEDTIME RF: 0 cyclobenzaprine 5 mg tablet 1.5 tab PO TID RF: 0 buprenorphine-naloxone [Suboxone] 8-2 mg film 1 strip sublingual BID RF: 0 Vraylar 1.5 mg capsule 1 cap PO BEDTIME RF: 0 prazosin 2 mg capsule 1 cap PO BEDTIME RF: 0 Referrals: Vincent Hayes, HUMAN DEVELOPMENT PROFESSOR-BC [Primary Care Provider] - 2 days Interventions: ED Discharge Assessment Last Done: 04/05/21 20:24 Discharge Date/Time: 04/05/21 20:25
[2021-04-05] MEDS: methylPREDNISolone Sod Succ 125 MG/2 ML VIAL 60 MG IVPUSH (16:05)
[2021-04-05] MEDS: Magnesium Sulfate/H2O 2 GM/50 ML PIGGYBACK IV (16:05)
[2021-04-05 16:14] LABS: MANUAL DIFF FLAG NO
[2021-04-05 16:15] LABS: Basophils Percent Auto 0.3 % (0-2); Eosinophils Absolute Auto 0.4 X10*3/uL (0.0-0.4); Eosinophils Percent Auto 6.7 % (0-4); Hemoglobin 10.7 g/dl (12.0-16.0); Imm Gran Abs Auto 0.01 X10*3/uL (0.00-0.03); Imm Gran Pct Auto 0.2 % (0.0-0.4); Lymphocytes Absolute Auto 2.2 X10*3/uL (1.2-4.9); Lymphocytes Percent Auto 37.4 % (20-40); Mean Corpuscular HGB Conc 32.4 g/dl (31.0-35.0); Mean Corpuscular Hemoglobin 28.2 pg (27.0-33.0); Mean Corpuscular Volume 87.1 fL (80-98); Mean Platelet Volume 9.2 fL (9.4-12.3); Monocytes Absolute Auto 0.5 X10*3/uL (0.1-1.2); Monocytes Percent Auto 8.7 % (2-11); Neutrophils Absolute Auto 2.8 X10*3/uL (2.0-8.3); Neutrophils Percent Auto 46.7 % (45-73); Platelet Count 360 X10*3/uL (160-400); Red Blood Count 3.79 X10*6/uL (4.20-5.50); Red Cell Distribution Width 12.7 % (11.0-16.0)
[2021-04-05 16:35] LABS: Ethanol < 10 mg/dL
[2021-04-05 16:36] LABS: Anion Gap 15 (12-20); Blood Urea Nitrogen 16 mg/dL (9-16); Carbon Dioxide 23 mmol/L (22-29); Chloride 107 mmol/L (96-108); Creatinine Clr Calc Pharmacy 102.1; Estimated Glomerular Filt Rate > 60; Glucose Random 120 mg/dL (60-115); Potassium 4.2 mmol/L (3.3-5.1); Sodium 141 mmol/L (135-145)
[2021-04-05] MEDS: Albuterol/Iprat 2.5/0.5MG 3 ML AMPUL.NEB INHALE (16:37)
[2021-04-05 16:38] LABS: Alanine Aminotransferase 12 U/L (0-31); Alkaline Phosphatase 98 U/L (39-117); Aspartate Amino Transferase 13 U/L (5-31); Bilirubin Direct < 0.2 mg/dL (0.0-0.5); Bilirubin Total 0.2 mg/dL (0.0-1.0); Total Protein 6.5 g/dL (6.5-8.0)
[2021-04-05 16:40] VITALS: PULSE 96; O2SAT 94
[2021-04-05 16:42] LABS: Troponin-I High Sensitivity < 3.5 ng/L (<3.5-17.0)
[2021-04-05 18:03] VITALS: BP 131/72; PULSE 102; RESP 16; O2SAT 98
[2021-04-05 18:18] LABS: Appearance Urine CLEAR; Color Urine COLORLESS; Glucose Urine UA NEG (NEG); Leukocyte Esterase Urine NEG (NEG); Nitrite Urine NEG (NEG); Specific Gravity - Urine <= 1.005 (1.005-1.025); Urine Blood NEG (NEG); Urine Ketones NEG (NEG); Urine Protein NEG (NEG-TRACE)
[2021-04-05 18:19] LABS: UPreg QC Valid YES; Urine Pregnancy NEGATIVE (NEGATIVE)
[2021-04-05 18:33] LABS: Amphetamine Screen Urine Not Detected (Not Detect); Barbiturates, Urine Not Detected (Not Detect); Benzodiazepines Screen Urine Not Detected (Not Detect); Cannabinoid Screen Urine POSITIVE (Not Detect); Cocaine Screen Urine Not Detected (Not Detect); Fentanyl, urine POSITIVE (Not Detect); Opiate Screen Urine POSITIVE (Not Detect); Phencyclidine Screen Urine Not Detected (Not Detect)
--- NOTE | 2021-04-05 19:25 | MHC.RECOVSUP ---
? Reason for consult Recovery support o Current location: ED11 o Identified substance use concern: Heroin - Overdose - Support ? Intervention: o Community resources provided o Harm reduction discussion ? Plan: o Patient to follow up with [facility] after discharge ? Additional information: Met with patient and we talk about Harm reduction and the resources available to help in there recovery.. Patient stated that she had some time in recovery and relapsed cause she was upset but that she wants to get back on track that they like being in recovery..
[2021-04-05] MEDS: Naloxone HCl Nasal TAKE HOME 4 MG SPRAY NOSTRILALT (20:25)
== END 2021-04-05 20:25 | disposition home or self-care (01) ==
PROVIDERS: Nurse Practitioner Family; Emergency Provider Emergency Medicine; PCP Nurse Practitioner Family
DX: J45.901 Unspecified asthma with (acute) exacerbation (principal); F11.20 Opioid dependence, uncomplicated; R06.02 Shortness of breath; F17.210 Nicotine dependence, cigarettes, uncomplicated
CPT/HCPCS: 36415; 71046; 80048; 80076; 80307; 81003; 81025; 82077; 84484; 85025; 93005; 94640; 96365; 96366; 96375; 99285; J2930; J3475

== ENCOUNTER 2021-04-17 16:25 | Emergency (ER) | payer OTHER, SELFPAY ==
--- NOTE | ~2021-04-17 | CT_ITS ---
EXAMINATION: CT OF THE HEAD AND CERVICAL SPINE WITHOUT CONTRAST CLINICAL INFORMATION: Trauma COMPARISON: 03/13/2017 TECHNIQUE: Contiguous axial imaging was performed from the vertex to the thoracic inlet, through the head and cervical spine, without intravenous administration of contrast. Coronal and sagittal reformatted images through the cervical spine were obtained on the technologists workstation. Total exam dose-length product: 666+388 mGy-cm This CT examination was performed using dose optimization techniques as appropriate, variously including the following: *Automated exposure control *Adjustment of mA and/or kV according to patient size (this includes techniques or standardized protocols for targeted exams where dose is matched to indication/reason for exam; i.e. extremities or head) *Use of iterative reconstruction technique FINDINGS: Head: No acute intracranial hemorrhage. No extra-axial fluid collection. Brown-white matter differentiation is preserved without evidence of acute large vessel territory ischemia. Symmetric, concordant ventricles and sulci; no hydrocephalus. No mass effect or midline shift. There is no abnormal attenuation within the brain parenchyma. The osseous structures and soft tissues are normal. There is circumferential mucosal thickening of the right maxillary sinus. Mild left maxillary sinus mucosal thickening. Right ethmoid sinus mucosal thickening. Cervical spine: Normal pre-vertebral soft tissues. No fracture seen. There is straightening and mild reversal of the normal cervical lordosis, presumably positional. No focal malalignment seen. Disk heights are maintained. Thyroid homogeneous with no nodules seen. Lung apices are clear. No cervical lymphadenopathy, mass, or fluid collection. CT/CT head/brain wo con IMPRESSION: No acute intracranial pathology. Sinus disease. No acute osseous abnormality of the cervical spine.
--- NOTE | ~2021-04-17 | CT_ITS ---
EXAMINATION: CT CERVICAL SPINE WITHOUT CONTRAST CLINICAL INFORMATION: Trauma. COMPARISON: Cervical spine CT dated 03/13/2017. TECHNIQUE: Contiguous axial CT images of the cervical spine were obtained without contrast. Sagittal and coronal reformats were provided and reviewed. This CT examination was performed using dose optimization techniques as appropriate, variously including the following: *Automated exposure control. *Adjustment of mA and/or kV according to patient size (this includes techniques or standardized protocols for targeted exams where dose is matched to indication/reason for exam; i.e. extremities or head). *Use of iterative reconstruction technique. DLP: 388 mGy-cm FINDINGS: Reversal of the normal cervical lordosis, which may be positional or related to muscle spasm. No acute fracture or subluxation. No loss of vertebral body or intervertebral disc height. No lytic or blastic osseous lesion. Unremarkable facets. No abnormal soft tissue calcification. Unremarkable prevertebral soft tissues. The thyroid is within normal limits. The visualized lung apices are clear. No significant central canal or neural foraminal stenosis. CT/CT cervical spine wo con IMPRESSION: 1. Mild reversal of the normal cervical lordosis, which may be positional or related to muscular spasm. 2. No acute fracture or subluxation.
--- NOTE | 2021-04-17 16:53 | ED.OVERDOSE ---
HPI - Overdose General Chief Complaint: Overdose Stated Complaint: fall/OD Time Seen by Provider: 04/17/21 16:40 Source: EMS History of Present Illness HPI Narrative: pt overdose on heroine at home,she relapsed,she fell 2-3 stairs she is c/o sam and neck pain,she was given narcan prehospitall complaint: accidental overdose Onset (ago): minute(s) (30) Context: Accidental Overdose: wanted to get high Treatments Prior to Arrival: narcan Related Data Home Medications Medication Instructions Recorded Confirmed albuterol sulfate 2.5 mg INHALATION Q4-6H PRN 07/04/20 04/17/21 buprenorphine 8 mg-naloxone 2 mg 1 strip SUBLINGUAL BID 03/30/21 04/17/21 sublingual film (Suboxone) cariprazine 1.5 mg capsule 1 cap PO BEDTIME 03/30/21 04/17/21 (Vraylar) omeprazole 40 mg capsule,delayed 1 cap PO BEDTIME 03/30/21 04/17/21 release cyclobenzaprine 5 mg tablet 1.5 tab PO TID 04/17/21 04/17/21 doxepin 10 mg capsule 1 cap PO BEDTIME 04/17/21 04/17/21 gabapentin 400 mg capsule 2 cap PO TID 04/17/21 04/17/21 oxcarbazepine 300 mg tablet 1 tab PO BID 04/17/21 04/17/21 prazosin 1 mg capsule 1 cap PO QAM 04/17/21 04/17/21 prazosin 2 mg capsule 1 cap PO BEDTIME 04/17/21 04/17/21 sertraline 50 mg tablet 1 tab PO QAM 04/17/21 04/17/21 Previous Rx's Medication Instructions Recorded nicotine 14 mg/24 hr daily 1 patch TRANSDERMAL DAILY #14 ea 03/30/21 transdermal patch Allergies Allergy/AdvReac Type Severity Reaction Status Date / Time latex [LATEX] Allergy Intermediate RASH Verified 03/30/21 20:17 adhesive tape [ADHESIVE TAPE] AdvReac Intermediate RASH Verified 03/30/21 20:17 Review of Systems Review of Systems: Yes all other systems are reviewed and are negative Constitutional: Constitutional: Denies fever(s) Cardiovascular: Cardiovascular: Denies chest pain and Denies rapid heart rate Respiratory: Respiratory: Reports no additional respiratory complaints PMFSH Past Medical History Attestation statement: The following information was validated with the patient. Medical History Anxiety Asthma Bipolar disorder Crohn's disease Depression GERD (gastroesophageal reflux disease) Hx of substance abuse PTSD (post-traumatic stress disorder) Family History Family History Father Colon cancer Mother No problems noted. Brother Autism Sister Bipolar disorder Maternal Aunt Breast cancer Social History Social History Household Members: Significant Other Housing: Other Alcohol intake: unknown Patient Tobacco Use Status: Current everyday Tobacco user Tobacco use type: Cigarette Cigarettes Per Day: 5 Years Smoked: 8 e-Cigarette/Vaping Use: Never Used Use of substances other than those prescribed or required for medical reasons: Yes Substance Use Type: Heroin Substance Use Frequency: Chronic Longstanding Substance Use Frequency Other:: Had been sober [id number] but recent relapse Advance Directives: No Advance Directives Information Provided: No Patient : No Current occupational status: unemployed Physical Exam Vital Signs: Vital Signs: Last Vital Signs Temp 97.9 F 04/17/21 17:11 Pulse 88 04/17/21 17:11 Resp 20 04/17/21 17:11 BP 104/86 04/17/21 17:11 Pulse Ox 100 04/17/21 17:11 Body Mass Index 29.1 Const: General: cooperative, comfortable, no acute distress, well developed and alert Nutritional Appearance: average body habitus HENMT: Head: Yes normal to inspection, Yes No palpable skull fracture present and Yes normocephalic General nose exam: Normal external nose present Face and sinus: Yes normal facial exam Mouth: Normal oral and palatal mucosa present Throat: Yes posterior oropharynx normal Neck: Neck: Yes normal visual inspection Thyroid: Thyroid normal Carotids: normal carotid upstroke Chest: Chest palpation & inspection: normal inspection of the chest Resp: Effort & Inspection: normal respiratory effort Cardio: Jugular venous distension: no JVD Rate: regular rate Rhythm: regular rhythm GI: Inspection: Yes normal to inspection Palpation (GI): Soft to palpation, not firm, nontender and no guarding Auscultation: normal bowel sounds Skin: General skin exam: no rashes or lesions noted, elasticity normal and turgor normal Rashes: no rashes Wounds: no wounds Course Reevaluation(s) Reevaluation #1: pT C/O DEPRESSION SHE WILL BE SEEN BY N SIGNED OFF TO dR FERMIN Discharge Plan Discharge Clinical Impression: Opioid use disorder, Fall, Depression Prescriptions: No Action albuterol sulfate 2.5 mg /3 mL (0.083 %) solution for nebulization 2.5 mg inhalation Q4-6H PRN (Reason: Wheezing) RF: 0 nicotine 14 mg/24 hr patch 24 hour 1 patch transdermal DAILY Qty: 14 RF: 0 omeprazole 40 mg capsule,delayed release(DR/EC) 1 cap PO BEDTIME RF: 0 buprenorphine-naloxone [Suboxone] 8-2 mg film 1 strip sublingual BID RF: 0 Vraylar 1.5 mg capsule 1 cap PO BEDTIME RF: 0 prazosin 1 mg capsule 1 cap PO QAM RF: 0 gabapentin 400 mg capsule 2 cap PO TID RF: 0 oxcarbazepine 300 mg tablet 1 tab PO BID RF: 0 sertraline 50 mg tablet 1 tab PO QAM RF: 0 prazosin 2 mg capsule 1 cap PO BEDTIME RF: 0 cyclobenzaprine 5 mg tablet 1.5 tab PO TID RF: 0 doxepin 10 mg capsule 1 cap PO BEDTIME RF: 0
[2021-04-17 17:09] VITALS: BP 110/77; PULSE 163; O2SAT 98
[2021-04-17 17:11] VITALS: BP 104/86; PULSE 88; RESP 20; TEMP 36.6; O2SAT 100; BMI 29.1
--- NOTE | 2021-04-17 17:38 | MHC.RECOVSUP ---
? Reason for consult o Current location: ED6H o Identified substance use concern: Heroin - Overdose - Withdrawal - Support ? Intervention: o Community resources provided o Harm reduction discussion ? Plan: o Patient awaiting crisis evaluation o Patient to follow up with [facility] after discharge ? Additional information: Met with Patient. Patient was feeling with much Anxiety She explained to me that Patient relap[se after some time in recovery . Patient stated that she use due to running out of meds. Patient stated she not sick to go to a detox but woud be willing to go to a css or a tss so that she could continue There recovery.. I contacted the Care Team and they are working on getting Crisis to help Patient.
--- NOTE | 2021-04-17 17:59 | MHC.CARE ---
Met with Pt whom stated that she was having increased anxiety due to a recent overdose and not having her medications for the past week, due to her prescriber?unwilling to fill them as she is no longer at her [facility].? This advertising copywriter felt that a crisis evaluation was needed and requested that Dr. Costa put in the referral.?
--- NOTE | 2021-04-17 18:19 | PC.NURSE ---
Pt changed over at the time of discharge. Belongings sent to decon. Crisis referral sent to [facility] via smart sheet.
--- NOTE | 2021-04-17 18:32 | MHC.RECOVSUP ---
Per request of patient I spoke with Patient. I spoke with Patient Mom and explain to her the process that patient will be doing.
[2021-04-17 21:31] VITALS: BP 109/76; PULSE 100
[2021-04-17] MEDS: Gabapentin 600 MG TABLET PO (21:31)
[2021-04-17] MEDS: Prazosin HCL 1 MG CAPSULE 2 MG PO (21:31)
[2021-04-17] MEDS: Omeprazole 40 MG CAPSULE.DR PO (21:32)
[2021-04-17] MEDS: OXcarbazepine 300 MG TABLET PO (21:32)
[2021-04-17] MEDS: Cyclobenzaprine HCl 5 MG TABLET 7.5 MG PO (21:33)
[2021-04-17] MEDS: Cariprazine HCl 1.5 MG CAPSULE PO (21:35)
[2021-04-17] MEDS: clonazePAM 1 MG TABLET PO (21:36)
[2021-04-17 21:54] LABS: COVID-19 Test Negative (Negative)
--- NOTE | 2021-04-17 22:01 | MHC.CARE ---
[facility] unable to send a clinician to evaluate pt this evening. CARE team contacted Jose from crisis triage and requested that [facility] be notified that this physician underwriter will be completing the evaluation.
--- NOTE | 2021-04-17 23:00 | PC.NURSE ---
Patient alert and oriented x4, [facility] called to confirm the receipt of referral, confirmed by CINTHIA Briceno overnight, Med rec completed by calling [facility], approved by Provider, compliant with her medication, behavior appropriate, will continue to monitor.
[2021-04-17 23:37] VITALS: BP 97/59; PULSE 102; RESP 16; TEMP 36.1; O2SAT 93
--- NOTE | 2021-04-17 23:39 | MHC.CARE ---
CARE team evaluation complete. Pt does not meet medical necessity for an acute psychiatric admission. Consulted with ED attending physician Luis Villafuerte, who is in agreement with plan of care. Pt does not require further mental health assessment or intervention at this time. Recovery support team will meet with pt in the morning to discuss appropriate referrals and intervention.
--- NOTE | 2021-04-18 05:36 | PC.NURSE ---
Patient slept through the night, no distress observed/reported, Care team assessed the patient recommended that patient does not need inpatient level of care, recovery team will f/u and find suitable intervention for the patient, patient was unable to provide urine sample, order d/c until sample is obtained, VSS, behavior appropriate, med compliant, will continue to monitor.
--- NOTE | 2021-04-18 07:03 | PC.NURSE ---
patient appears asleep at present, appears in no distress, respirations even and unlabored.
[2021-04-18 08:04] VITALS: BP 110/70; PULSE 103; TEMP 36.8; O2SAT 95
[2021-04-18] MEDS: Nicotine 14 MG PATCH.TD24 TRANSDERMA (10:15)
[2021-04-18] MEDS: OXcarbazepine 300 MG TABLET PO (10:15)
[2021-04-18] MEDS: Gabapentin 600 MG TABLET PO (10:15)
[2021-04-18] MEDS: Cyclobenzaprine HCl 5 MG TABLET 7.5 MG PO (10:15)
[2021-04-18] MEDS: Sertraline HCL 50 MG TABLET PO (10:15)
--- NOTE | 2021-04-18 12:45 | PC.NURSE ---
Per Stephanie Murrieta PMHNP this pt is not to receive any benzos, she has not been on benzos in 2 years. Per Stephanie this pt has the ability to become manipulative in the efforts of convincing providers to prescribe benzos for her.
--- NOTE | 2021-04-18 12:57 | MHC.RECOVRN ---
T/w spoke with Luigi, Wharfinger Chief, as well as pt to discuss dispo. Referrals for ATS have been sent, as pt needs that level of care. Awaiting call back from [facility]. Per Wharfinger Chief, all other facilities do not have ATS availability. Pt reports having a referral to [facility] sent from previous facility. Wharfinger Chief following up and awaiting call back. CARE Team aware.
--- NOTE | 2021-04-18 13:19 | MHC.RECOVRN ---
T/w spoke with Smoke Control Supervisor, Luigi, who reports [facility] will accept pt into [facility] program. Pt agreeable. Pt will be transported by mother. CARE Team aware.
--- NOTE | 2021-04-18 13:38 | MHC.RECOVSUP ---
? Reason for consult: :Continuity of care o Current location: [facility] o Identified substance use concern: Heroin - Overdose - Withdrawal - Seeking ATS (detox) - Support ? Intervention: o ATS bed search started/completed/in process o MAT started or to be started o Community resources provided o Harm reduction discussion ? Plan: o Referral to [facility] o Bed search in progress to o Follow up tomorrow o Patient awaiting crisis evaluation o Patient to follow up with [facility] after discharge ? Additional information:Patient going to [facility], being dropped off by mother.
--- NOTE | 2021-04-18 15:47 | MHC.RECOVRN ---
Pt no longer being transported by mother. Pt getting to [facility] via Lyft. Pt receiving 1 week bridge prescription for gabapentin from Stephanie Murrieta APRN. Sent to [facility] in [place]. Pt will f/u with psych provider, Jenn Raymond, for medication management.
== END 2021-04-18 13:19 | disposition other institution (70) ==
PROVIDERS: Internal Medicine; Emergency Provider Emergency Medicine; PCP Nurse Practitioner Family
DX: F11.20 Opioid dependence, uncomplicated (principal); F32.9 Major depressive disorder, single episode, unspecified; Z20.822 Contact with and (suspected) exposure to COVID-19; F17.210 Nicotine dependence, cigarettes, uncomplicated; F43.10 Post-traumatic stress disorder, unspecified; Z79.899 Other long term (current) drug therapy
CPT/HCPCS: 36415; 70450; 72125; 87635; 99284

== ENCOUNTER 2021-05-06 16:22 | Inpatient (IN) | payer OTHER, SELFPAY ==
--- NOTE | ~2021-05-06 | CT_ITS ---
EXAMINATION: CT ANGIOGRAM OF THE CHEST WITH AND WITHOUT CONTRAST (CT PULMONARY ANGIOGRAM FOR PE) CLINICAL INFORMATION: Reason for Exam COVID positive. Tachycardic. Hypoxic. Rule out PE COMPARISON: None TECHNIQUE: Prior to contrast administration, noncontrast localization images were obtained. Subsequently, multidetector volumetric imaging was performed from the thoracic inlet to below the diaphragms following the administration of 80 mL Omnipaque 350 intravenous contrast. No contrast reaction reported Sagittal, coronal, and MIP oblique sagittal reformatted images were obtained on the CT workstation, uploaded to PACS, and reviewed. This CT examination was performed using dose optimization techniques as appropriate, variously including the following: *Automated exposure control *Adjustment of mA and/or kV according to patient size (this includes techniques or standardized protocols for targeted exams where dose is matched to indication/reason for exam; i.e. extremities or head) *Use of iterative reconstruction technique Total exam dose-length product 251 mGy-cm FINDINGS: QUALITY OF STUDY/CONTRAST BOLUS: Suboptimal. PULMONARY ARTERIES: No large central pulmonary embolus. The enhancement is suboptimal and small emboli might be difficult to detect. The main pulmonary arteries are normal caliber. THORACIC AORTA: No aneurysm or dissection demonstrated. LUNG: There is minor retained secretions within the trachea. There are some poorly defined opacities involving the airspace in the medial right upper lobe and wedge-shaped peripheral opacity in the posterior right lower lobe. Moderate peripheral airspace opacity in the apical posterior left upper lobe. A small opacity is present in the posteromedial left lower lobe. The aeration is worsened when compared to 02/07/20. There is no cavitation. Most of the opacities are groundglass with vessels visible. PLEURA: There is no pleural fluid or pneumothorax. MEDIASTINUM: There are a few nonspecific top normal mediastinal lymph nodes. Slight stranding in the expected region of the thymus. No evidence of septal bowing or right heart strain. CHEST WALL/AXILLA: Nipple jewelry present. No large breast mass. OSSEOUS STRUCTURES: No acute or suspicious osseous abnormality. UPPER ABDOMEN: No suspicious abnormality demonstrated No reflux of contrast into the hepatic veins to suggest elevated right heart pressures. CT/CT angio chest PE protocol IMPRESSION: Suboptimal opacification of pulmonary arteries without definite central pulmonary embolus. There are bilateral groundglass opacities which could represent pneumonia. This represents worsening when compared to 02/07/20. VTE: negative
--- NOTE | ~2021-05-06 | XR_ITS ---
EXAMINATION: XR CHEST CLINICAL INFORMATION: Shortness of breath. Cough COMPARISON: Frontal view 04/05/21 TECHNIQUE: Upright frontal portable view of the chest was obtained. FINDINGS: Multiple devices overlie the patient. Jewelry projects over the chest on each side. Cardiac size within normal limits. No mediastinal or hilar mass. No alveolar edema. Lung volumes are normal. No dense consolidation. Some vague minimal opacity projects over the left upper lobe and possibly some streaky subsegmental density at the right base. No pneumothorax or significant pleural fluid XR/XR chest 1V IMPRESSION: No dense pneumonia or edema. Some scattered small opacities could be present.
[2021-05-06 17:01] VITALS: BP 126/81; PULSE 127; RESP 20; TEMP 36.8; O2SAT 93; BMI 25.0
[2021-05-06 17:18] VITALS: BP 130/86; PULSE 119; RESP 25; O2SAT 88; O2SAT 98
--- NOTE | 2021-05-06 17:26 | ECG_ITS ---
Test Reason : DYSPENIA Blood Pressure : / mmHG Vent. Rate : 110 BPM Atrial Rate : 110 BPM P-R Int : 142 ms QRS Dur : 080 ms QT Int : 332 ms P-R-T Axes : 069 049 059 degrees QTc Int : 449 ms Sinus tachycardia Otherwise normal ECG When compared with ECG of 05-APR-2021 15:55, No significant change was found Referred By: Adelita Orellana Electronically Signed By:CARLTON RIVERA
--- NOTE | 2021-05-06 17:33 | ED.SOB ---
HPI - SOB/Dyspnea General Chief Complaint: Dyspnea Stated Complaint: Covid +/SOB Time Seen by Provider: 05/06/21 17:02 Source: patient History of Present Illness HPI Narrative: 25-year-old female with a past medical history of anxiety, asthma, bipolar, Crohn's, depression, GERD, substance abuse, PTSD, COVID-19 positive 4 days ago, presenting to the ED complaining increased SOB, chest discomfort, productive cough, myalgias, generalized abdominal pain, diarrhea. 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 States psychiatrist recently discontinued her medications 5 days ago, reports increased depression/anxiety/does not want to withdraw from medications. Patient is cigarette smoker. Denies fever, chills, vomiting, dysuria/hematuria, recent travel, history of blood clots Admits to using neb OCCUP THERAPIST MD elicited complaint: shortness of breath and cough Related Data Home Medications Medication Instructions Recorded Confirmed albuterol sulfate 2.5 mg INHALATION Q4-6H PRN 07/04/20 05/06/21 cariprazine 1.5 mg capsule 1 cap PO BEDTIME 03/30/21 05/06/21 (Vraylar) omeprazole 40 mg capsule,delayed 1 cap PO BEDTIME 03/30/21 05/06/21 release cyclobenzaprine 5 mg tablet 1.5 tab PO TID 04/17/21 05/06/21 oxcarbazepine 300 mg tablet 1 tab PO BID 04/17/21 05/06/21 prazosin 2 mg capsule 1 cap PO BEDTIME 04/17/21 05/06/21 albuterol sulfate 90 mcg/actuation 2 puff INHALATION QID PRN 05/06/21 05/06/21 aerosol inhaler (ProAir HFA) clonazepam 1 mg tablet 1 mg PO TID 05/06/21 05/06/21 lorazepam 0.5 mg tablet 0.5 mg PO DAILY PRN 05/06/21 05/06/21 Previous Rx's Medication Instructions Recorded nicotine 14 mg/24 hr daily 1 patch TRANSDERMAL DAILY #14 ea 03/30/21 transdermal patch gabapentin 600 mg tablet 600 mg PO TID #21 tab 04/18/21 Allergies Allergy/AdvReac Type Severity Reaction Status Date / Time latex [LATEX] Allergy Intermediate RASH Verified 03/30/21 20:17 adhesive tape [ADHESIVE TAPE] AdvReac Intermediate RASH Verified 03/30/21 20:17 Review of Systems Review of Systems: Constitutional: No Fever, No Chills, +Fatigue, + Malaise ENT/Mouth: No Ear Pain, No Nasal Congestion, No Sinus Pain, No Hoarseness, No sore throat, No Rhinorrhea Eyes: No Eye Pain, No Swelling, No Vision Changes Cardiovascular: + Chest Pain, + SOB, No Dyspnea on Exertion, No Orthopnea, No Edema, No Palpitations Respiratory: + Cough, + Sputum, + Wheezing, + Dyspnea Gastrointestinal: + Nausea, No Vomiting, + Diarrhea, No Constipation, + Abdominal pain Genitourinary: No Dysuria, No Urinary Frequency, No Hematuria, No Flank Pain Musculoskeletal: No joint pain, + Myalgias, No Joint Swelling Skin: No Skin Lesions, No rash Neuro: No Weakness, No Numbness, No Dizziness, No Headache Yes all other systems are reviewed and are negative [facility] Past Medical History Attestation statement: The following information was validated with the patient. Medical History Anxiety Asthma Bipolar disorder Crohn's disease Depression GERD (gastroesophageal reflux disease) Hx of substance abuse PTSD (post-traumatic stress disorder) Family History Family History Father Colon cancer Mother No problems noted. Brother Autism Sister Bipolar disorder Maternal Aunt Breast cancer Social History Social History Household Members: Significant Other Housing: Other Alcohol intake: unknown Patient Tobacco Use Status: Current everyday Tobacco user Tobacco use type: Cigarette Cigarettes Per Day: 5 Years Smoked: 8 e-Cigarette/Vaping Use: Never Used Use of substances other than those prescribed or required for medical reasons: Yes Substance Use Type: Heroin Advance Directives: No Advance Directives Information Provided: No Current occupational status: unemployed Physical Exam Vital Signs: Vital Signs: Last Vital Signs Temp 98.6 F 05/06/21 20:00 Pulse 113 H 05/06/21 20:00 Resp 16 05/06/21 20:00 BP 144/82 H 05/06/21 20:00 Pulse Ox 2 L 05/06/21 20:00 Body Mass Index 25.0 Const: General: cooperative and comfortable Orientation/consciousness: patient oriented x3 Limitations: no limitations HENMT: Head: Yes normal to inspection Ears: hearing grossly normal bilaterally General nose exam: Normal external nose present Face and sinus: Yes normal facial exam Eyes: General: appearance normal, both eyes and all related structures EOM: EOMs intact bilaterally Neck: Neck: Yes normal visual inspection and Yes no meningeal signs Resp: Other: Coarse lung sounds throughout Effort & Inspection: normal respiratory effort Auscultation: wheezes expiratory wheezes, inspiratory wheezes and throughout Cardio: Rate: tachycardic Heart sounds: S1 normal heart sound present and S2 normal heart sound present GI: Inspection: Yes normal to inspection Palpation (GI): Soft to palpation, nontender, no guarding and not rigid Skin: Rashes: no rashes Wounds: no wounds Neuro: General: patient oriented x3, moves all extremities and no meningeal signs Extrem: General: Yes normal to inspection, Yes no pedal edema and Yes no calf tenderness Course Course Course Narrative: -1917--no leukocytosis. H&H stable. D-dimer elevated to 282 expected from COVID-19 -labs otherwise unremarkable. Lactic acid negative. LDH/CRP mildly elevated. BNP 133 -tox screen positive for opiates, Fentanyl, & THC 1940--XR chest 1V IMPRESSION: No dense pneumonia or edema. Some scattered small opacities could be present. >> IV Ceftriaxone and Doxycycline ordered. Case discussed with hospitalist, will obtain CTA to rule out PE, and admit MDM - SOB/Dyspnea MDM Narrative Medical decision making narrative: 25-year-old female with a past medical history of anxiety, asthma, bipolar, Crohn's, depression, GERD, substance abuse, PTSD, COVID-19 positive 4 days ago, presenting to the ED complaining increased SOB, chest discomfort, productive cough, myalgias, generalized abdominal pain, diarrhea. 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 Concern for worsening COVID-19/COVID pneumonia vs PE with co-founding asthma Rule out metabolic abnormalities. Low concern for severe sepsis as known viral etiology Plan: EKG, labs, UA, CXR, albuterol, magnesium, Decadron, anticipated admission Medical Records Attestation: I reviewed the patient's medical records. Lab Data Attestation: I reviewed the patient's lab results. Result diagrams: 05/06/21 18:00 05/06/21 18:00 Labs: Lab Results 05/06/21 05/06/21 05/06/21 Range/Units 17:29 17:29 17:29 WBC (4.8-10.8) X10*3/uL RBC (4.20-5.50) X10*6/uL Hgb (12.0-16.0) g/dl Hct (37-47) % MCV (80-98) fL MCH (27.0-33.0) pg MCHC (31.0-35.0) g/dl RDW (11.0-16.0) % Plt Count (160-400) X10*3/uL MPV (9.4-12.3) fL Immature Gran % (Auto) (0.0-0.4) % Neut % (Auto) (45-73) % Lymph % (Auto) (20-40) % Stoddard % (Auto) (2-11) % Eos % (Auto) (0-4) % Baso % (Auto) (0-2) % Lymph # (Auto) (1.2-4.9) X10*3/uL Stoddard # (Auto) (0.1-1.2) X10*3/uL Eos # (Auto) (0.0-0.4) X10*3/uL Baso # (Auto) (0.0-0.2) X10*3/uL Abs Immat Gran (auto) (0.00-0.03) X10*3/uL Absolute Neuts (auto) (2.0-8.3) X10*3/uL Absolute Nucleated RBC (0.0-0.012) X10*3/uL Nucleated RBC % (auto) (0.0-0.2) /100WBC PT Cancelled INR Cancelled APTT Cancelled D-Dimer NG/ML Sodium (135-145) mmol/L Potassium (3.3-5.1) mmol/L Chloride (96-108) mmol/L Carbon Dioxide (22-29) mmol/L Anion Gap (12-20) BUN (9-16) mg/dL Creatinine (0.5-1.4) mg/dL Estim Creat Clear Calc Estimated GFR Random Glucose (60-115) mg/dL Lactic Acid 0.9 (0.5-2.0) mmol/L Calcium (8.4-10.2) mg/dL Magnesium (1.6-2.6) mg/dL Ferritin (10-122) ng/mL Total Bilirubin (0.0-1.0) mg/dL Direct Bilirubin (0.0-0.5) mg/dL AST (5-31) U/L ALT (0-31) U/L Alkaline Phosphatase (39-117) U/L Lactate Dehydrogenase (122-220) U/L Troponin I High Sens 3.6 (<3.5-17.0) ng/L C-Reactive Protein (< or = 0.50) mg/dL B-Natriuretic Peptide 133 H (<100) pg/mL Total Protein (6.5-8.0) g/dL Albumin (3.5-5.0) g/dL Lipase (8-78) U/L Procalcitonin ng/mL 05/06/21 05/06/21 05/06/21 Range/Units 18:00 18:00 18:00 WBC 7.7 (4.8-10.8) X10*3/uL RBC 3.87 L (4.20-5.50) X10*6/uL Hgb 10.9 L (12.0-16.0) g/dl Hct 33.3 L (37-47) % MCV 86.0 (80-98) fL MCH 28.2 (27.0-33.0) pg MCHC 32.7 (31.0-35.0) g/dl RDW 13.3 (11.0-16.0) % Plt Count 272 (160-400) X10*3/uL MPV 10.0 (9.4-12.3) fL Immature Gran % (Auto) 0.1 (0.0-0.4) % Neut % (Auto) 79.7 H (45-73) % Lymph % (Auto) 12.9 L (20-40) % Stoddard % (Auto) 5.8 (2-11) % Eos % (Auto) 1.4 (0-4) % Baso % (Auto) 0.1 (0-2) % Lymph # (Auto) 1.0 L (1.2-4.9) X10*3/uL Stoddard # (Auto) 0.5 (0.1-1.2) X10*3/uL Eos # (Auto) 0.1 (0.0-0.4) X10*3/uL Baso # (Auto) 0.0 (0.0-0.2) X10*3/uL Abs Immat Gran (auto) 0.01 (0.00-0.03) X10*3/uL Absolute Neuts (auto) 6.1 (2.0-8.3) X10*3/uL Absolute Nucleated RBC 0.000 (0.0-0.012) X10*3/uL Nucleated RBC % (auto) 0.0 (0.0-0.2) /100WBC PT INR APTT D-Dimer NG/ML Sodium 139 (135-145) mmol/L Potassium 4.9 (3.3-5.1) mmol/L Chloride 106 (96-108) mmol/L Carbon Dioxide 27 (22-29) mmol/L Anion Gap 11 L (12-20) BUN 7 L D (9-16) mg/dL Creatinine 0.64 (0.5-1.4) mg/dL Estim Creat Clear Calc 123.0 Estimated GFR > 60 Random Glucose 110 (60-115) mg/dL Lactic Acid (0.5-2.0) mmol/L Calcium 9.8 D (8.4-10.2) mg/dL Magnesium 2.2 (1.6-2.6) mg/dL Ferritin 39 (10-122) ng/mL Total Bilirubin 0.2 (0.0-1.0) mg/dL Direct Bilirubin 0.2 (0.0-0.5) mg/dL AST 18 (5-31) U/L ALT 10 (0-31) U/L Alkaline Phosphatase 84 (39-117) U/L Lactate Dehydrogenase 249 H (122-220) U/L Troponin I High Sens (<3.5-17.0) ng/L C-Reactive Protein 8.32 H (< or = 0.50) mg/dL B-Natriuretic Peptide (<100) pg/mL Total Protein 6.5 (6.5-8.0) g/dL Albumin 4.1 (3.5-5.0) g/dL Lipase 11 (8-78) U/L Procalcitonin 0.02 ng/mL 05/06/21 Range/Units 18:00 WBC (4.8-10.8) X10*3/uL RBC (4.20-5.50) X10*6/uL Hgb (12.0-16.0) g/dl Hct (37-47) % MCV (80-98) fL MCH (27.0-33.0) pg MCHC (31.0-35.0) g/dl RDW (11.0-16.0) % Plt Count (160-400) X10*3/uL MPV (9.4-12.3) fL Immature Gran % (Auto) (0.0-0.4) % Neut % (Auto) (45-73) % Lymph % (Auto) (20-40) % Stoddard % (Auto) (2-11) % Eos % (Auto) (0-4) % Baso % (Auto) (0-2) % Lymph # (Auto) (1.2-4.9) X10*3/uL Stoddard # (Auto) (0.1-1.2) X10*3/uL Eos # (Auto) (0.0-0.4) X10*3/uL Baso # (Auto) (0.0-0.2) X10*3/uL Abs Immat Gran (auto) (0.00-0.03) X10*3/uL Absolute Neuts (auto) (2.0-8.3) X10*3/uL Absolute Nucleated RBC (0.0-0.012) X10*3/uL Nucleated RBC % (auto) (0.0-0.2) /100WBC PT 12.5 INR 1.1 APTT 30.9 D-Dimer 282 NG/ML Sodium (135-145) mmol/L Potassium (3.3-5.1) mmol/L Chloride (96-108) mmol/L Carbon Dioxide (22-29) mmol/L Anion Gap (12-20) BUN (9-16) mg/dL Creatinine (0.5-1.4) mg/dL Estim Creat Clear Calc Estimated GFR Random Glucose (60-115) mg/dL Lactic Acid (0.5-2.0) mmol/L Calcium (8.4-10.2) mg/dL Magnesium (1.6-2.6) mg/dL Ferritin (10-122) ng/mL Total Bilirubin (0.0-1.0) mg/dL Direct Bilirubin (0.0-0.5) mg/dL AST (5-31) U/L ALT (0-31) U/L Alkaline Phosphatase (39-117) U/L Lactate Dehydrogenase (122-220) U/L Troponin I High Sens (<3.5-17.0) ng/L C-Reactive Protein (< or = 0.50) mg/dL B-Natriuretic Peptide (<100) pg/mL Total Protein (6.5-8.0) g/dL Albumin (3.5-5.0) g/dL Lipase (8-78) U/L Procalcitonin ng/mL Discharge Plan Discharge Clinical Impression: COVID-19 Patient Disposition: Admitted As Inpatient
[2021-05-06] MEDS: Albuterol Sulfate (0.083%) 2.5 MG/3 ML VIAL.NEB 10 MG INHALE (17:39)
[2021-05-06 17:40] VITALS: PULSE 113; O2SAT 97
[2021-05-06 17:46] LABS: Lactic Acid 0.9 mmol/L (0.5-2.0)
[2021-05-06] MEDS: dexAMETHasone sod phosphate 4 MG/ML VIAL 6 MG IVPUSH (17:50)
[2021-05-06 17:55] LABS: B Type Natriuretic Peptide 133 pg/mL (<100); Troponin-I High Sensitivity 3.6 ng/L (<3.5-17.0)
[2021-05-06] MEDS: Magnesium Sulfate/H2O 2 GM/50 ML PIGGYBACK IV (18:12)
[2021-05-06 18:14] LABS: Basophils Percent Auto 0.1 % (0-2); Eosinophils Absolute Auto 0.1 X10*3/uL (0.0-0.4); Eosinophils Percent Auto 1.4 % (0-4); Hematocrit 33.3 % (37-47); Hemoglobin 10.9 g/dl (12.0-16.0); Imm Gran Abs Auto 0.01 X10*3/uL (0.00-0.03); Imm Gran Pct Auto 0.1 % (0.0-0.4); Lymphocytes Percent Auto 12.9 % (20-40); Mean Corpuscular HGB Conc 32.7 g/dl (31.0-35.0); Mean Corpuscular Hemoglobin 28.2 pg (27.0-33.0); Monocytes Absolute Auto 0.5 X10*3/uL (0.1-1.2); Monocytes Percent Auto 5.8 % (2-11); Neutrophils Absolute Auto 6.1 X10*3/uL (2.0-8.3); Neutrophils Percent Auto 79.7 % (45-73); Platelet Count 272 X10*3/uL (160-400); Red Blood Count 3.87 X10*6/uL (4.20-5.50); Red Cell Distribution Width 13.3 % (11.0-16.0); White Blood Count 7.7 X10*3/uL (4.8-10.8)
[2021-05-06 18:19] LABS: INTERNATIONAL NORM RATIO 1.1 (0.9-1.1); Prothrombin Time 12.5 SEC (9.9-13.0)
[2021-05-06 18:20] LABS: MANUAL DIFF FLAG NO
[2021-05-06 18:22] LABS: D Dimer 282 NG/ML; Partial Thromboplastin Time 30.9 SEC (24.1-38.0)
[2021-05-06 18:34] LABS: Alanine Aminotransferase 10 U/L (0-31); Albumin Level 4.1 g/dL (3.5-5.0); Alkaline Phosphatase 84 U/L (39-117); Anion Gap 11 (12-20); Aspartate Amino Transferase 18 U/L (5-31); Bilirubin Direct 0.2 mg/dL (0.0-0.5); Bilirubin Total 0.2 mg/dL (0.0-1.0); Blood Urea Nitrogen 7 mg/dL (9-16); C Reactive Protein 8.32 mg/dL (< or = 0.50); Calcium 9.8 mg/dL (8.4-10.2); Carbon Dioxide 27 mmol/L (22-29); Chloride 106 mmol/L (96-108); Estimated Glomerular Filt Rate > 60; Glucose Random 110 mg/dL (60-115); Lactate Dehydrogenase 249 U/L (122-220); Lipase 11 U/L (8-78); Magnesium 2.2 mg/dL (1.6-2.6); Potassium 4.9 mmol/L (3.3-5.1); Sodium 139 mmol/L (135-145); Total Protein 6.5 g/dL (6.5-8.0)
[2021-05-06 18:53] LABS: Ferritin 39 ng/mL (10-122)
[2021-05-06 18:56] LABS: Procalcitonin 0.02 ng/mL
[2021-05-06 20:00] VITALS: BP 144/82; PULSE 113; RESP 16; TEMP 37; O2SAT 2
[2021-05-06] MEDS: cefTRIAXone sodium 1 GM in 0.9 % Sodium Chloride 50 ML IV (20:24)
[2021-05-06] MEDS: LORazepam 2 MG/ML VIAL 1 MG IVPUSH (20:40)
[2021-05-06] MEDS: Doxycycline Hyclate 100 MG in 0.9 % Sodium Chloride 250 ML 166.67 MG IV (21:04)
--- NOTE | 2021-05-06 21:51 | P.HPHOSP_ITS ---
History of Present Illness Date of Service: 05/06/21 Chief Complaint: hypoxic Medical history of asthma, anxiety disorder, bipolar disorder, Crohn's disease, history of substance abuse presents the hospital with complaints of worsening shortness of breath. Patient reports that she was diagnosed with COVID-19 about 5 days ago, she has been isolating herself at a hotel but her symptoms have worsened. Patient reports cough, sputum production, fever, and chills. Patient's boyfriend is also COVID positive and they live together. She denies any chest pain, no abdominal pain nausea or vomiting, no diarrhea constipation, no urinary symptoms. Patient is very distraught, crying, very emotional at this time. On arrival To the ED patient's vitals are significant for temp of 98.3, heart rate of 127, respiratory rate of 20, blood pressure 126/81, satting 93% but did drop to 88% on room air currently on 2 L satting 98% Labs on arrival For WBC count of 7.7, hemoglobin of 10.9, BNP of 133, UA that is positive for leukocyte Estrace, as well as WBC Patient admits to currently using fentanyl therefore her UDS is positive for fentanyl as well as opioids and marijuana. CT a shows suboptimal opacification of pulmonary arteries without definite central pulmonary embolus, there are bilateral ground-glass opacities. Patient will be admitted for further management Review of Systems Review of Systems: Yes all other systems are reviewed and are negative [facility] Medical History Anxiety Asthma Bipolar disorder Crohn's disease Depression GERD (gastroesophageal reflux disease) Hx of substance abuse PTSD (post-traumatic stress disorder) Family History Father Colon cancer Mother No problems noted. Brother Autism Sister Bipolar disorder Maternal Aunt Breast cancer Social History Household Members: Significant Other Housing: Other Alcohol intake: unknown Patient Tobacco Use Status: Current everyday Tobacco user Tobacco use type: Cigarette Cigarettes Per Day: 5 Years Smoked: 8 e-Cigarette/Vaping Use: Never Used Use of substances other than those prescribed or required for medical reasons: Yes Substance Use Type: Heroin Advance Directives: No Advance Directives Information Provided: No Current occupational status: unemployed Meds Allergies Allergy/AdvReac Type Severity Reaction Status Date / Time latex [LATEX] Allergy Intermediate RASH Verified 03/30/21 20:17 adhesive tape [ADHESIVE TAPE] AdvReac Intermediate RASH Verified 03/30/21 20:17 Home Medications Medication Instructions Recorded Confirmed Last Taken Type albuterol sulfate 2.5 mg INHALATION Q4-6H PRN 07/04/20 05/06/21 Unknown History cariprazine 1.5 mg capsule 1 cap PO BEDTIME 03/30/21 05/06/21 Unknown History (Vraylar) omeprazole 40 mg capsule,delayed 1 cap PO BEDTIME 03/30/21 05/06/21 Unknown History release cyclobenzaprine 5 mg tablet 1.5 tab PO TID 04/17/21 05/06/21 Unknown History oxcarbazepine 300 mg tablet 1 tab PO BID 04/17/21 05/06/21 Unknown History prazosin 2 mg capsule 1 cap PO BEDTIME 04/17/21 05/06/21 Unknown History albuterol sulfate 90 mcg/actuation 2 puff INHALATION QID PRN 05/06/21 05/06/21 Unknown History aerosol inhaler (ProAir HFA) clonazepam 1 mg tablet 1 mg PO TID 05/06/21 05/06/21 Unknown History lorazepam 0.5 mg tablet 0.5 mg PO DAILY PRN 05/06/21 05/06/21 Unknown History Physical Exam Vital Signs and Narrative: Vital Signs: Last Vital Signs Temp 98.6 F 05/06/21 20:00 Pulse 113 H 05/06/21 20:00 Resp 16 05/06/21 20:00 BP 144/82 H 05/06/21 20:00 Pulse Ox 2 L 05/06/21 20:00 Body Mass Index 25.0 Const: Other: Patient very distraught, crying, overwhelmed Orientation/consci ousness: patient oriented x3 Eyes: General: appearance normal, both eyes and all related structures Pupils: Equal, round and reactive pupils present Resp: Effort & Inspection: normal respiratory effort Auscultation: clear to auscultation bilaterally Cardio: Rate: regular rate Rhythm: regular rhythm GI: Palpation (GI): Soft to palpation Auscultation: normal bowel sounds Skin: General skin exam: no rashes or lesions noted Neuro: General: patient oriented x3 Cranial nerves: Yes Equal, round and reactive pupils present Cognition (Neuro): normal cognition Extrem: General: Yes normal to inspection and Yes no pedal edema Results Labs CBC and Chem 7: 05/06/21 18:00 05/06/21 18:00 Labs: Laboratory Results - last 24 hr 05/06/21 05/06/21 05/06/21 17:29 17:29 17:29 MCV MCH MCHC RDW Plt Count MPV Immature Gran % (Auto) Neut % (Auto) Lymph % (Auto) [place] % (Auto) Eos % (Auto) Baso % (Auto) Lymph # (Auto) [place] # (Auto) Eos # (Auto) Baso # (Auto) Abs Immat Gran (auto) Absolute Neuts (auto) Absolute Nucleated RBC Nucleated RBC % (auto) PT Cancelled INR Cancelled APTT Cancelled D-Dimer Anion Gap Estim Creat Clear Calc Estimated GFR Random Glucose Lactic Acid 0.9 Calcium Magnesium Ferritin Total Bilirubin Direct Bilirubin AST ALT Alkaline Phosphatase Lactate Dehydrogenase Troponin I High Sens 3.6 C-Reactive Protein B-Natriuretic Peptide 133 H Total Protein Albumin Lipase Procalcitonin 05/06/21 05/06/21 05/06/21 18:00 18:00 18:00 MCV 86.0 MCH 28.2 MCHC 32.7 RDW 13.3 Plt Count 272 MPV 10.0 Immature Gran % (Auto) 0.1 Neut % (Auto) 79.7 H Lymph % (Auto) 12.9 L [place] % (Auto) 5.8 Eos % (Auto) 1.4 Baso % (Auto) 0.1 Lymph # (Auto) 1.0 L [place] # (Auto) 0.5 Eos # (Auto) 0.1 Baso # (Auto) 0.0 Abs Immat Gran (auto) 0.01 Absolute Neuts (auto) 6.1 Absolute Nucleated RBC 0.000 Nucleated RBC % (auto) 0.0 PT INR APTT D-Dimer Anion Gap 11 L Estim Creat Clear Calc 123.0 Estimated GFR > 60 Random Glucose 110 Lactic Acid Calcium 9.8 D Magnesium 2.2 Ferritin 39 Total Bilirubin 0.2 Direct Bilirubin 0.2 AST 18 ALT 10 Alkaline Phosphatase 84 Lactate Dehydrogenase 249 H Troponin I High Sens C-Reactive Protein 8.32 H B-Natriuretic Peptide Total Protein 6.5 Albumin 4.1 Lipase 11 Procalcitonin 0.02 09/12/21 18:00 MCV MCH MCHC RDW Plt Count MPV Immature Gran % (Auto) Neut % (Auto) Lymph % (Auto) [place] % (Auto) Eos % (Auto) Baso % (Auto) Lymph # (Auto) [place] # (Auto) Eos # (Auto) Baso # (Auto) Abs Immat Gran (auto) Absolute Neuts (auto) Absolute Nucleated RBC Nucleated RBC % (auto) PT 12.5 INR 1.1 APTT 30.9 D-Dimer 282 Anion Gap Estim Creat Clear Calc Estimated GFR Random Glucose Lactic Acid Calcium Magnesium Ferritin Total Bilirubin Direct Bilirubin AST ALT Alkaline Phosphatase Lactate Dehydrogenase Troponin I High Sens C-Reactive Protein B-Natriuretic Peptide Total Protein Albumin Lipase Procalcitonin Imaging Radiologist's Impressions: Impressions Chest X-Ray 05/06/21 17:26 IMPRESSION: No dense pneumonia or edema. Some scattered small opacities could be present. Assessment and Plan (1) Acute respiratory failure with hypoxia: Status: Acute (2) Pneumonia due to COVID-19 virus: Status: Acute This is a 25-year-old female with past medical history of asthma presents to the hospital after being COVID positive for 5 days with shortness of breath and worsening respiratory status # acute hypoxic respiratory failure - secondary to COVID-19 pneumonia complicated by asthma - patient satting 80% on room air - currently on 2 L of oxygen satting above 90% - will start on dexamethasone - monitor respiratory status # COVID-19 pneumonia - patient reports that she is vaccinated with maternal - will start her on dexamethasone - O2 as required - monitor respiratory status # asthma - in exacerbation - dexamethasone as above - DuoNeb p.r.n. and scheduled # anxiety - patient has severe anxiety at this time - will resume her home benzodiazepines # opiate use disorder - she is very concerned about withdrawals - willing to start methadone if necessary - she is very scared of starting Suboxone and does not feel ready - at this time will start her on morphine - consult crisis team for initiation of methadone if possible DVT prophylaxis: Heparin subQ Quality Stroke Does the patient have a stroke diagnosis?: No VTE Prior VTE?: No VTE Risk Level:: Medical - moderate - high VTE Device Contraindication: Treatment Not Indicated VTE Drug Contraindication: N/A - Med Ordered
[2021-05-06 22:00] VITALS: BP 108/58; PULSE 113; RESP 16; TEMP 37; O2SAT 98
[2021-05-06 23:22] LABS: HCG Quantitative < 2 mIU/mL
--- NOTE | 2021-05-06 23:48 | PC.NURSE ---
Patient is currently asleep so medication not given yet. Will recheck in 15 minutes.
[2021-05-07] VITALS (10 sets, daily range): BP systolic 118–143; BP diastolic 69–96; PULSE 92–107; RESP 5–20; TEMP 36.3–37; O2SAT 93–99
[2021-05-07] MEDS: iohexoL 350 MG/ML 100 ML INFUS..BTL 65 ML IV (00:16)
[2021-05-07] MEDS: Omeprazole 40 MG CAPSULE.DR PO (00:31)
[2021-05-07] MEDS: Gabapentin 600 MG TABLET PO ×3 (00:32→14:36)
[2021-05-07] MEDS: clonazePAM 1 MG TABLET PO ×2 (00:32→08:53)
[2021-05-07] MEDS: OXcarbazepine 300 MG TABLET PO ×2 (00:32→08:53)
[2021-05-07] MEDS: Cyclobenzaprine HCl 5 MG TABLET 7.5 MG PO ×3 (00:32→14:35)
[2021-05-07 00:48] LABS: Appearance Urine HAZY; Color Urine BROWN; Glucose Urine UA NEG (NEG); Leukocyte Esterase Urine TRACE (NEG); Nitrite Urine NEG (NEG); Specific Gravity - Urine <= 1.005 (1.005-1.025); UACC Culture Trigger YES; Urine Blood 3+ (NEG); Urine Ketones NEG (NEG); Urine Protein 2+ MG/DL (NEG-TRACE)
[2021-05-07] MEDS: Prazosin HCL 1 MG CAPSULE 2 MG PO (00:58)
[2021-05-07] MEDS: Cariprazine HCl 1.5 MG CAPSULE PO (00:58)
[2021-05-07 01:06] LABS: Amphetamine Screen Urine Not Detected (Not Detect); Barbiturates, Urine Not Detected (Not Detect); Benzodiazepines Screen Urine Not Detected (Not Detect); Cannabinoid Screen Urine POSITIVE (Not Detect); Cocaine Screen Urine Not Detected (Not Detect); Fentanyl, urine POSITIVE (Not Detect); Opiate Screen Urine POSITIVE (Not Detect); Phencyclidine Screen Urine Not Detected (Not Detect)
[2021-05-07 01:08] LABS: Bacteria Urine 2+ /LPF; Squamous Epithelial Cell Urine 4+ /LPF
[2021-05-07] MEDS: Morphine Sulfate 4 MG/ML CARTRIDGE IVPUSH (04:34)
[2021-05-07 06:48] LABS: COVID-19 Test Negative (Negative)
[2021-05-07 08:01] LABS: MANUAL DIFF FLAG NO
[2021-05-07 08:10] LABS: Eosinophils Percent Auto 0.2 % (0-4); Hematocrit 32.5 % (37-47); Hemoglobin 10.7 g/dl (12.0-16.0); Imm Gran Abs Auto 0.01 X10*3/uL (0.00-0.03); Imm Gran Pct Auto 0.2 % (0.0-0.4); Lymphocytes Absolute Auto 0.9 X10*3/uL (1.2-4.9); Lymphocytes Percent Auto 17.6 % (20-40); Mean Corpuscular HGB Conc 32.9 g/dl (31.0-35.0); Mean Corpuscular Hemoglobin 28.3 pg (27.0-33.0); Mean Platelet Volume 10.4 fL (9.4-12.3); Monocytes Absolute Auto 0.6 X10*3/uL (0.1-1.2); Monocytes Percent Auto 11.8 % (2-11); Neutrophils Absolute Auto 3.6 X10*3/uL (2.0-8.3); Neutrophils Percent Auto 70.2 % (45-73); Platelet Count 268 X10*3/uL (160-400); Red Blood Count 3.78 X10*6/uL (4.20-5.50); Red Cell Distribution Width 13.2 % (11.0-16.0); White Blood Count 5.1 X10*3/uL (4.8-10.8)
[2021-05-07 08:15] LABS: Anion Gap 11 (12-20); Blood Urea Nitrogen 10 mg/dL (9-16); Calcium 9.6 mg/dL (8.4-10.2); Carbon Dioxide 25 mmol/L (22-29); Chloride 107 mmol/L (96-108); Creatinine Clr Calc Pharmacy 133.4; Estimated Glomerular Filt Rate > 60; Glucose Random 132 mg/dL (60-115); Potassium 4.4 mmol/L (3.3-5.1); Sodium 139 mmol/L (135-145)
[2021-05-07] MEDS: dexAMETHasone sod phosphate 4 MG/ML VIAL 6 MG IVPUSH (08:55)
[2021-05-07] MEDS: Nicotine 14 MG PATCH.TD24 TRANSDERMA (08:55)
[2021-05-07] MEDS: Albuterol Sulfate (0.083%) 2.5 MG/3 ML VIAL.NEB INHALE (09:24)
--- NOTE | 2021-05-07 10:32 | HO.ADDICTCON ---
History of Present Illness Date of Service: 05/07/2021 Chief Complaint: Covid 19 PNA, Hypoxic Reason for Consult: OUD-requesting methadone Requesting physician: Bari Jenkins Discussed with referring provider: Yes Sources of Information: patient interviewed and chart reviewed HPI Narrative: Patient is a 25 year old female currently medically admitted with pneumonia. Patient very well known to this selling underwriter --diagnosis of PTSD, OUD, benzodiazepine use disorder. Consult requested as patient reporting opioid withdrawal and would like to initiate methadone. Chart reviewed and patient seen in ED room 3 as she is awaiting transfer to medical floor. Patient reporting she has been using heroin and fentanyl for the last few weeks, intranasal States she is currently staying in a hotel--placed by the [employer] following Covid dx on 04/27. Prior to that she reports she was in a program in [place]. Current withdrawal sx reported as malaise, nausea, restless legs, and anxiety. Denies vomiting, loose stools. During chart review noted that patient had been ordered Klonopin 1mg TID and Lorazepam 0.5mg QD PRN. Discussed with patient concern regarding these medications, kalyan given that there is no record of her being prescribed these outpatient. Patient adamant that she is being prescribed these, then stated that her current psychiatrist is no longer working with her. Medical Evaluation Reviewed: Yes Personal & Social History: As per HPI Review of Systems Review of Systems As per HPI Cardiovascular: Reports dyspnea Respiratory: Reports dyspnea Diagnostics Vital Signs (24Hr): Vital Signs - 24 hr 05/06/21 17:01 05/06/21 17:18 05/06/21 17:40 Temperature 98.3 F Pulse Rate 127 H 119 H 113 H Respiratory Rate 20 25 H Blood Pressure 126/81 130/86 Pulse Oximetry 93 98 05/06/21 20:00 05/06/21 22:00 05/07/21 00:22 Temperature 98.6 F 98.6 F Pulse Rate 113 H 113 H 96 Respiratory Rate 16 16 17 Blood Pressure 144/82 H 108/58 L 140/96 H Pulse Oximetry 2 L 98 96 05/07/21 00:58 05/07/21 01:33 05/07/21 04:34 Temperature Pulse Rate 96 92 Respiratory Rate 5 L 15 Blood Pressure 140/96 H 118/69 Pulse Oximetry 93 05/07/21 06:00 05/07/21 08:59 05/07/21 09:30 Temperature 98.6 F Pulse Rate 103 H 107 H 102 H Respiratory Rate 15 20 Blood Pressure 132/73 131/81 Pulse Oximetry 98 95 Body Mass Index 25.0 Labs Results: 05/07/21 07:19 05/07/21 07:19 Labs: Laboratory Results - last 48 hr 05/06/21 05/06/21 05/06/21 17:29 17:29 17:29 WBC RBC Hgb Hct MCV MCH MCHC RDW Plt Count MPV Immature Gran % (Auto) Neut % (Auto) Lymph % (Auto) [place] % (Auto) Eos % (Auto) Baso % (Auto) Lymph # (Auto) [place] # (Auto) Eos # (Auto) Baso # (Auto) Abs Immat Gran (auto) Absolute Neuts (auto) Absolute Nucleated RBC Nucleated RBC % (auto) PT Cancelled INR Cancelled APTT Cancelled D-Dimer Sodium Potassium Chloride Carbon Dioxide Anion Gap BUN Creatinine Estim Creat Clear Calc Estimated GFR Random Glucose Lactic Acid 0.9 Calcium Magnesium Ferritin Total Bilirubin Direct Bilirubin AST ALT Alkaline Phosphatase Lactate Dehydrogenase Troponin I High Sens 3.6 C-Reactive Protein B-Natriuretic Peptide 133 H Total Protein Albumin Lipase Procalcitonin Beta HCG, Quant Urine Color Urine Appearance Urine pH Ur Specific [place] Urine Protein Urine Glucose (UA) Urine Ketones Urine Blood Urine Nitrite Ur Leukocyte Esterase Urine RBC Urine WBC Ur Squamous Epith Cells Urine Bacteria Urine Opiates Screen Urine Fentanyl Screen Ur Barbiturates Screen Ur Phencyclidine Scrn Ur Amphetamines Screen U Benzodiazepines Scrn Urine Cocaine Screen U Marijuana (THC) Screen COVID-19 ([facility]) COVID-19 Clin Com 05/06/21 05/06/21 05/06/21 18:00 18:00 18:00 WBC 7.7 RBC 3.87 L Hgb 10.9 L Hct 33.3 L MCV 86.0 MCH 28.2 MCHC 32.7 RDW 13.3 Plt Count 272 MPV 10.0 Immature Gran % (Auto) 0.1 Neut % (Auto) 79.7 H Lymph % (Auto) 12.9 L [place] % (Auto) 5.8 Eos % (Auto) 1.4 Baso % (Auto) 0.1 Lymph # (Auto) 1.0 L [place] # (Auto) 0.5 Eos # (Auto) 0.1 Baso # (Auto) 0.0 Abs Immat Gran (auto) 0.01 Absolute Neuts (auto) 6.1 Absolute Nucleated RBC 0.000 Nucleated RBC % (auto) 0.0 PT INR APTT D-Dimer Sodium 139 Potassium 4.9 Chloride 106 Carbon Dioxide 27 Anion Gap 11 L BUN 7 L D Creatinine 0.64 Estim Creat Clear Calc 123.0 Estimated GFR > 60 Random Glucose 110 Lactic Acid Calcium 9.8 D Magnesium 2.2 Ferritin 39 Total Bilirubin 0.2 Direct Bilirubin 0.2 AST 18 ALT 10 Alkaline Phosphatase 84 Lactate Dehydrogenase 249 H Troponin I High Sens C-Reactive Protein 8.32 H B-Natriuretic Peptide Total Protein 6.5 Albumin 4.1 Lipase 11 Procalcitonin 0.02 Beta HCG, Quant < 2 Urine Color Urine Appearance Urine pH Ur Specific [place] Urine Protein Urine Glucose (UA) Urine Ketones Urine Blood Urine Nitrite Ur Leukocyte Esterase Urine RBC Urine WBC Ur Squamous Epith Cells Urine Bacteria Urine Opiates Screen Urine Fentanyl Screen Ur Barbiturates Screen Ur Phencyclidine Scrn Ur Amphetamines Screen U Benzodiazepines Scrn Urine Cocaine Screen U Marijuana (THC) Screen COVID-19 ([facility]) COVID-19 Clin Com 05/06/21 05/07/21 05/07/21 18:00 00:40 06:27 WBC RBC Hgb Hct MCV MCH MCHC RDW Plt Count MPV Immature Gran % (Auto) Neut % (Auto) Lymph % (Auto) [place] % (Auto) Eos % (Auto) Baso % (Auto) Lymph # (Auto) [place] # (Auto) Eos # (Auto) Baso # (Auto) Abs Immat Gran (auto) Absolute Neuts (auto) Absolute Nucleated RBC Nucleated RBC % (auto) PT 12.5 INR 1.1 APTT 30.9 D-Dimer 282 Sodium Potassium Chloride Carbon Dioxide Anion Gap BUN Creatinine Estim Creat Clear Calc Estimated GFR Random Glucose Lactic Acid Calcium Magnesium Ferritin Total Bilirubin Direct Bilirubin AST ALT Alkaline Phosphatase Lactate Dehydrogenase Troponin I High Sens C-Reactive Protein B-Natriuretic Peptide Total Protein Albumin Lipase Procalcitonin Beta HCG, Quant Urine Color BROWN Urine Appearance HAZY Urine pH 7.0 Ur Specific [place] <= 1.005 Urine Protein 2+ H Urine Glucose (UA) NEG Urine Ketones NEG Urine Blood 3+ H Urine Nitrite NEG Ur Leukocyte Esterase TRACE H Urine RBC 15-29 H Urine WBC 5-9 H Ur Squamous Epith Cells 4+ Urine Bacteria 2+ Urine Opiates Screen Urine Fentanyl Screen Ur Barbiturates Screen Ur Phencyclidine Scrn Ur Amphetamines Screen U Benzodiazepines Scrn Urine Cocaine Screen U Marijuana (THC) Screen COVID-19 ([facility]VID) Negative COVID-19 Clin Com See Note 05/07/21 05/07/21 05/07/21 07:19 07:19 Unknown WBC 5.1 RBC 3.78 L Hgb 10.7 L Hct 32.5 L MCV 86.0 MCH 28.3 MCHC 32.9 RDW 13.2 Plt Count 268 MPV 10.4 Immature Gran % (Auto) 0.2 Neut % (Auto) 70.2 Lymph % (Auto) 17.6 L [place] % (Auto) 11.8 H Eos % (Auto) 0.2 Baso % (Auto) 0.0 Lymph # (Auto) 0.9 L [place] # (Auto) 0.6 Eos # (Auto) 0.0 Baso # (Auto) 0.0 Abs Immat Gran (auto) 0.01 Absolute Neuts (auto) 3.6 Absolute Nucleated RBC 0.000 Nucleated RBC % (auto) 0.0 PT INR APTT D-Dimer Sodium 139 Potassium 4.4 Chloride 107 Carbon Dioxide 25 Anion Gap 11 L BUN 10 Creatinine 0.59 Estim Creat Clear Calc 133.4 Estimated GFR > 60 Random Glucose 132 H Lactic Acid Calcium 9.6 Magnesium Ferritin Total Bilirubin Direct Bilirubin AST ALT Alkaline Phosphatase Lactate Dehydrogenase Troponin I High Sens C-Reactive Protein B-Natriuretic Peptide Total Protein Albumin Lipase Procalcitonin Beta HCG, Quant Urine Color Urine Appearance Urine pH Ur Specific [place] Urine Protein Urine Glucose (UA) Urine Ketones Urine Blood Urine Nitrite Ur Leukocyte Esterase Urine RBC Urine WBC Ur Squamous Epith Cells Urine Bacteria Urine Opiates Screen POSITIVE H Urine Fentanyl Screen POSITIVE H Ur Barbiturates Screen Not Detected Ur Phencyclidine Scrn Not Detected Ur Amphetamines Screen Not Detected U Benzodiazepines Scrn Not Detected Urine Cocaine Screen Not Detected U Marijuana (THC) Screen POSITIVE H COVID-19 ([facility]ID) COVID-19 Clin Com EKG EKG: reviewed Imaging Radiology Impressions: ITS Impressions Chest X-Ray 05/06/21 17:26 IMPRESSION: No dense pneumonia or edema. Some scattered small opacities could be present. Chest CTA 05/06/21 19:42 IMPRESSION: Suboptimal opacification of pulmonary arteries without definite central pulmonary embolus. There are bilateral groundglass opacities which could represent pneumonia. This represents worsening when compared to 02/07/20. VTE: negative Mental Status Exam Mental Status Exam Patient Appearance: Appropriate Patient Orientation: Person, Place, Time and Situation Level of Consciousness: Awake Patient Behavior: Guarded Mood Description: Constricted Affect Description: Constricted Patient Cognition Impaired: No Ability to Follow Directions: Good Hallucinations: None Thought Process: Goal Oriented Thought Content: positive for Goal Oriented and positive for Perseveration Judgement: Fair (limited ) Medications Medications Current Medications Generic Name Dose Route Start Last Admin Trade Name Freq PRN Reason Stop Dose Admin Acetaminophen 650 mg 05/07/21 00:22 Acetaminophen 325 Mg Tablet PO Q6H PRN Pain, Mild (Pain Scale 1-3) Albuterol Sulfate 2.5 mg 05/06/21 23:01 05/07/21 09:24 Albuterol Sulfate (0.083%) 2.5 Mg/3 Ml Vial.Neb INHALE 2.5 mg Q4H PRN Administration Wheezing Cariprazine 1.5 mg 05/06/21 23:01 05/07/21 00:58 Cariprazine Hcl 1.5 Mg Capsule PO 1.5 mg BEDTIME SHEILA Administration Cyclobenzaprine HCl 7.5 mg 05/06/21 23:01 05/07/21 08:54 Cyclobenzaprine Hcl 5 Mg Tablet PO 7.5 mg TID SHEILA Administration Dexamethasone Sodium Phosphate 6 mg 05/07/21 09:00 05/07/21 08:55 Dexamethasone Sod Phosphate 4 Mg/Ml Vial IVPUSH 6 mg DAILY SHEILA Administration Docusate Sodium 100 mg 05/07/21 00:22 Docusate Sodium 100 Mg Capsule PO DAILY PRN Constipation Gabapentin 600 mg 05/06/21 23:01 05/07/21 08:53 Gabapentin 600 Mg Tablet PO 600 mg TID SHEILA Administration Heparin Sodium (Porcine) 5,000 unit 05/07/21 01:00 05/07/21 01:00 Heparin Sodium,Porcine 5,000 Unit/Ml Vial SUBCUT Not Given Q12H SHEILA Hydroxyzine HCl 25 mg 05/06/21 23:01 Hydroxyzine Hcl 25 Mg Tablet PO Q8H PRN withdrawal Ceftriaxone Sodium 1 gm/ 50 mls @ 100 mls/hr 05/07/21 20:00 Sodium Chloride IV Q24H SHEILA Morphine Sulfate 4 mg 05/06/21 23:01 05/07/21 04:34 Morphine Sulfate 4 Mg/Ml Cartridge IVPUSH 4 mg Q4H PRN Administration withdrawal Protocol Nicotine 14 mg 05/07/21 09:00 05/07/21 08:55 Nicotine 14 Mg Patch.Td24 TRANSDERMA 14 mg DAILY SHEILA Administration Omeprazole 40 mg 05/06/21 23:01 05/07/21 00:31 Omeprazole 40 Mg Capsule. PO 40 mg BEDTIME SHEILA Administration Ondansetron HCl 4 mg 05/07/21 00:22 Ondansetron Hcl 4 Mg/2 Ml Vial IVPUSH Q8H PRN Nausea and Vomiting Oxcarbazepine 300 mg 05/06/21 23:01 05/07/21 08:53 Oxcarbazepine 300 Mg Tablet PO 300 mg BID SHEILA Administration Prazosin HCl 2 mg 05/06/21 23:01 05/07/21 00:58 Prazosin Hcl 1 Mg Capsule PO 2 mg BEDTIME SHEILA Administration Protocol Sodium Chloride 3 ml 05/07/21 00:22 05/07/21 00:59 0.9 % Sodium Chloride Flush 3 Ml Syringe IVFLUSH Not Given QSHIFT [facility] Allergies Allergies Allergy/AdvReac Type Severity Reaction Status Date / Time latex [LATEX] Allergy Intermediate RASH Verified 03/30/21 20:17 adhesive tape [ADHESIVE TAPE] AdvReac Intermediate RASH Verified 03/30/21 20:17 Assessment & Plan Assessment & Plan (1) Opioid use disorder: Status: Acute Code(s): F11.99 - Opioid use, unspecified with unspecified opioid-induced disorder Assessment and Plan: will start methadone 15mg and reeval need for additional dose later in the day d/c lorazepam and klonopin rx. patient is not being prescribed these outpatient (verified via [facility] and negative UDS for benzodiazepines) and these carry significant risk for OD given her continued opioid use additional 5-10mg of methadone may be administered this evening if patietn is endorsing withdrawal sx avoid benzodiazepaines and utilize hydroxyzine to address anxiety (which is a chronic issue for patient) Recovery support will follow up in AM to assess need for further titration and start process for continued outpatient methadone treatment Greater than 50% of the session was spent on counseling and/or coordination of care PMFSH Past Medical History Medical History Anxiety Asthma Bipolar disorder Crohn's disease Depression GERD (gastroesophageal reflux disease) Hx of substance abuse PTSD (post-traumatic stress disorder) Family History Family History Father Colon cancer Mother No problems noted. Brother Autism Sister Bipolar disorder Maternal Aunt Breast cancer Social History Social History Household Members: Significant Other Housing: Other Housing Other:: hotel Do you presently have visiting nurse or other home services: No Alcohol intake: unknown Patient Tobacco Use Status: Current everyday Tobacco user Tobacco use type: Cigarette Cigarettes Per Day: 5 Years Smoked: 8 Smoked in Last 30 Days: Yes e-Cigarette/Vaping Use: Never Used Patient Interested in Nicotine Replacement: No Patient Given Instructions on How to Stop Smoking: No Second Hand Smoke Exposure: Yes Use of substances other than those prescribed or required for medical reasons: Yes Substance Use Type: Heroin and Opiates Substance Use Frequency: Chronic Longstanding Last Used Substance: Just Prior to Admission Currently Displaying Signs/Symptoms of Drug Intoxication Withdrawal: No Any prior treatment program specific to substance use: Yes Have you been hit, kicked, punched, or otherwise hurt by someone within the past year? If so, by whom?: No Do you feel safe in your current relationship?: Yes Is there a partner from a previous relationship who is making you feel unsafe now?: No Are you made to feel afraid or neglected: No Advance Directives: No Advance Directives Information Provided: No Do you have thoughts of harming others: None Do you have a plan to hurt others: No Plan Recently lost weight without trying: No Nutrition Risks: No Nutritional Risk Patient : No (on period) : No Poor oral hygiene: No Current occupational status: unemployed
--- NOTE | 2021-05-07 11:36 | PC.NURSE ---
pt resting in bed, aware of plan to admit to the hospital. She is requesting ativan for anxiety at this time. Will Contact
[2021-05-07 12:57] LABS: Adenovirus PCR Not Detected (Not Detect.); Bordetella parapertussis PCR Not Detected (Not Detect.); Bordetella pertussis PCR Not Detected (Not Detect.)
[2021-05-07 12:58] LABS: Chlamydia pneumoniae PCR Not Detected (Not Detect.); Coronavirus 229E PCR Not Detected (Not Detect.); Coronavirus HKU1 PCR Not Detected (Not Detect.); Coronavirus NL63 PCR Not Detected (Not Detect.); Coronavirus OC43 PCR Not Detected (Not Detect.); Human metapneumovirus PCR Not Detected (Not Detect.); Influenza A PCR Not Detected (Not Detect.); Influenza B PCR Not Detected (Not Detect.); Mycoplasma pneumoniae PCR Not Detected (Not Detect.); Parainfluenza 1 PCR Not Detected (Not Detect.); Parainfluenza 2 PCR Not Detected (Not Detect.); Parainfluenza 3 PCR Not Detected (Not Detect.); Parainfluenza 4 PCR Not Detected (Not Detect.); RSV PCR Not Detected (Not Detect.); Rhino/Enterovirus PCR Not Detected (Not Detect.); SARS-CoV-2 PCR Not Detected (Not Detect.)
[2021-05-07] MEDS: 0.9 % Sodium Chloride Flush 3 ML SYRINGE IVFLUSH ×2 (13:02→14:38)
[2021-05-07] MEDS: Heparin Sodium,Porcine 5,000 UNIT/ML VIAL 5000 UNIT SUBCUT (13:20)
[2021-05-07] MEDS: methADONE HCl 20 MG/2 ML ORAL.CONC 15 MG PO (13:20)
--- NOTE | 2021-05-07 16:50 | PM.EVENT ---
Event Note Date of Service: 05/07/21 Event Note: This sql report writer met with patient this afternoon, per request of Stephanie Murrieta, as patient was refusing to meet with her regarding THIERNO and benzodiazepine use. Upon entering room, patient was resting comfortably in bed, no apparent distress noted. She reports that the methadone dose she received earlier today was ?not enough?, reports episodes of nausea and vomiting, generalized malaise, body aches, hot and cold flashes. She is requesting increased methadone dosing. We discussed her other medications including gabapentin, Vraylar, prazosin, Flexeril. We also discussed toxicology screen. Please note, upon presentation to this facility patient tested positive for opiates, fentanyl, marijuana. Patient had tested negative for barbituates, phencyclidine, amphetamines, cocaine, and benzodiazepines. Patient is insisting that she has regular scripts for lorazepam and clonazepam. She states she has been receiving these continuously for the past 6 years. This sql report writer explained that there was no record of this in either [facility] or her external script history. Patient was labile at times, and was inconsistent at times regarding last time she took any benzodiazepines, last provider that wrote scripts for them, and last pharmacy where they were filled. This sql report writer offered to increase psychiatric medication doses in order to address level of anxiety while inpatient. Patient declined, and stated that her doses of psychiatric medications were working well. Substance use and benzodiazepine use education was provided, and patient was encouraged to reach out to sober living arrangements upon discharge. Patient had reported that she had been living in a sober house located in [place]. She was encouraged to call them to see if she may return. She stated that she would do so. Patient did state that she may leave AMA if not started on benzodiazepines here, and not provided a script for one week to 30 days of benzodiazepines, as a bridge script, until she can find a new outpatient provider. Patient appears alert and oriented x4, fully coherent and cognizant of current medical condition, current treatment. She is able to process this information it in a meaningful way and make educated decisions. RECOMMENDATIONS: Would NOT recommend initiating benzodiazepine therapy at this time. If patient continues c/o anxiety, recommend utilizing prn hydroxyzine or low dose seroquel prn while inpatient. Thanks
--- NOTE | 2021-05-07 17:46 | PM.DS ---
DS: Providers Provider Date of Service: 05/07/21 Date of admission: 05/06/21 23:53 Date of discharge: 05/07/21 Primary care physician: SRINI Pugh Consults: 05/06/21 17:45 Consult to Physiatry Stat Consulting Provider: Jessee Gaston Reason for consultation: Off medications x multiple days. relaped on heroin 05/06/21 21:43 Consult to Crisis Stat Reason for consultation: substance abuse, wants to start methadone Has provider been notified: No 05/07/21 08:23 Consult to Infectious Diseases Routine Consulting Provider: Barby Downing Reason for consultation: ACUTE HYPOXEMIC RESPIRATORY FAILURE SECONDARY TO COVID PNEUMONIA. Has provider been notified: No DS: Diagnosis Discharge Diagnosis (1) Opioid use disorder: Status: Acute DS: Summary Hospital Course Hospital Course: Medical history of asthma, anxiety disorder, bipolar disorder, Crohn's disease, history of substance abuse presents the hospital with complaints of worsening shortness of breath.? Patient reports that she was diagnosed with COVID-19 about 5 days ago, she has been isolating herself at a hotel but her symptoms have worsened.? Patient reports cough, sputum production, fever, and chills.? Patient's boyfriend is also COVID positive and they live together.? She denies any chest pain, no abdominal pain nausea or vomiting, no diarrhea constipation, no urinary symptoms.? Patient is very distraught, crying, very emotional at this time. On arrival To the ED patient's vitals are significant for temp of 98.3, heart rate of 127, respiratory rate of 20, blood pressure 126/81, satting 93% but did drop to 88% on room air currently on 2 L satting 98% Labs on arrival For WBC count of 7.7, hemoglobin of 10.9, BNP of 133, UA that is positive for leukocyte Estrace, as well as WBC Patient admits to currently using fentanyl therefore her UDS is positive for fentanyl as well as opioids and marijuana. CT a shows suboptimal opacification of pulmonary arteries without definite central pulmonary embolus, there are bilateral ground-glass opacities. hospital course:Patient came with acute hypoxemic respiratory failure secondary to probable pneumonia-her initial COVID test was positive, and respiratory panel is pending also blood cultures are pending. She feels somewhat shortness of breath was better. She decided to sign against medical advise-wants to go risks of leaving against the medical advice including worsening of pneumonia, sepsis , -discussed in detail she understand and she is alert oriented x3 wants to leave, discharged on p.o. antibiotics also given dexamethasone for now since the the respiratory panel is still pending she was advised to check it with her primary doctor and the the course of steroid as per PCP further. She was also advised to come back if any shortness of breath worsening or any new finding fever chills Above management discussed with the patient in detail length she understand and in agreement with the above plan, time spent 50 minutes and 50% time spent on counseling. Significant findings: As above. Procedures performed: None. Treatment and response: As above. Complications: None. Time Spent with Patient Time attestation: Total time spent providing and/or coordinating discharge services: Discharge coordination time: Greater than 30 minutes Quality: Stroke Does the patient have a stroke diagnosis?: No Physical Exam Vital Signs: Vital Signs: Last Vital Signs Temp 97.3 F 05/07/21 15:20 Pulse 106 H 05/07/21 15:20 Resp 20 05/07/21 15:20 BP 121/71 05/07/21 15:20 Pulse Ox 98 05/07/21 15:20 Body Mass Index 25.0 Physical exam: Appearance: Alert.? Oriented X3.? not in distress.? Eyes: Pupils equal, round and reactive to light.? Sclera nonicteric.? ENT: Pharynx normal.? Moist mucous membranes. cvs: rrr, [id number] , no murmur res: air entry seems slightly better, dimished at bases. abd: no rebound or guarding ,nt, bs present. ext pulses present , no cyanosis ,Gait well balanced well coordinated. neuro: axo3 , nonfocal. DS: Data Data Completed and Pending Labs on day of discharge: Laboratory Results - last 24 hr 05/06/21 05/06/21 05/06/21 17:29 17:29 17:29 WBC RBC Hgb Hct MCV MCH MCHC RDW Plt Count MPV Immature Gran % (Auto) Neut % (Auto) Lymph % (Auto) [place] % (Auto) Eos % (Auto) Baso % (Auto) Lymph # (Auto) [place] # (Auto) Eos # (Auto) Baso # (Auto) Abs Immat Gran (auto) Absolute Neuts (auto) Absolute Nucleated RBC Nucleated RBC % (auto) PT Cancelled INR Cancelled APTT Cancelled D-Dimer Sodium Potassium Chloride Carbon Dioxide Anion Gap BUN Creatinine Estim Creat Clear Calc Estimated GFR Random Glucose Lactic Acid 0.9 Calcium Magnesium Ferritin Total Bilirubin Direct Bilirubin AST ALT Alkaline Phosphatase Lactate Dehydrogenase Troponin I High Sens 3.6 C-Reactive Protein B-Natriuretic Peptide 133 H Total Protein Albumin Lipase Procalcitonin Beta HCG, Quant Urine Color Urine Appearance Urine pH Ur Specific [place] Urine Protein Urine Glucose (UA) Urine Ketones Urine Blood Urine Nitrite Ur Leukocyte Esterase Urine RBC Urine WBC Ur Squamous Epith Cells Urine Bacteria Urine Opiates Screen Urine Fentanyl Screen Ur Barbiturates Screen Ur Phencyclidine Scrn Ur Amphetamines Screen U Benzodiazepines Scrn Urine Cocaine Screen U Marijuana (THC) Screen Respiratory Panel [place] Adenovirus (Rapid PCR) B.pert (TEM-PCR) B.parapertussis DNA PCR C. pneumoniae DNA (PCR) Coronavirus OC43 (PCR) Coronavirus HKU1 (PCR) Coronavirus 229E (PCR) COVID-19 (DAVID) COVID-19 Clin Com Coronavirus NL63 (PCR) Human Metapneumovir PCR Influenza A (RT-PCR) Influenza B (RT-PCR) M. pneumoniae (PCR) Parainfluenza 1 (PCR) Parainfluenza 2 (PCR) Parainfluenza 3 (PCR) Parainfluenza 4 (PCR) RSV (PCR) Entero/Rhino (PCR) SARS-CoV-2 RNA (RT-PCR) 05/06/21 05/06/21 05/06/21 18:00 18:00 18:00 WBC 7.7 RBC 3.87 L Hgb 10.9 L Hct 33.3 L MCV 86.0 MCH 28.2 MCHC 32.7 RDW 13.3 Plt Count 272 MPV 10.0 Immature Gran % (Auto) 0.1 Neut % (Auto) 79.7 H Lymph % (Auto) 12.9 L [place] % (Auto) 5.8 Eos % (Auto) 1.4 Baso % (Auto) 0.1 Lymph # (Auto) 1.0 L [place] # (Auto) 0.5 Eos # (Auto) 0.1 Baso # (Auto) 0.0 Abs Immat Gran (auto) 0.01 Absolute Neuts (auto) 6.1 Absolute Nucleated RBC 0.000 Nucleated RBC % (auto) 0.0 PT INR APTT D-Dimer Sodium 139 Potassium 4.9 Chloride 106 Carbon Dioxide 27 Anion Gap 11 L BUN 7 L D Creatinine 0.64 Estim Creat Clear Calc 123.0 Estimated GFR > 60 Random Glucose 110 Lactic Acid Calcium 9.8 D Magnesium 2.2 Ferritin 39 Total Bilirubin 0.2 Direct Bilirubin 0.2 AST 18 ALT 10 Alkaline Phosphatase 84 Lactate Dehydrogenase 249 H Troponin I High Sens C-Reactive Protein 8.32 H B-Natriuretic Peptide Total Protein 6.5 Albumin 4.1 Lipase 11 Procalcitonin 0.02 Beta HCG, Quant < 2 Urine Color Urine Appearance Urine pH Ur Specific [place] Urine Protein Urine Glucose (UA) Urine Ketones Urine Blood Urine Nitrite Ur Leukocyte Esterase Urine RBC Urine WBC Ur Squamous Epith Cells Urine Bacteria Urine Opiates Screen Urine Fentanyl Screen Ur Barbiturates Screen Ur Phencyclidine Scrn Ur Amphetamines Screen U Benzodiazepines Scrn Urine Cocaine Screen U Marijuana (THC) Screen Respiratory Panel [place] Adenovirus (Rapid PCR) B.pert (TEM-PCR) B.parapertussis DNA PCR C. pneumoniae DNA (PCR) Coronavirus OC43 (PCR) Coronavirus HKU1 (PCR) Coronavirus 229E (PCR) COVID-19 (DAVID) COVID-19 Clin Com Coronavirus NL63 (PCR) Human Metapneumovir PCR Influenza A (RT-PCR) Influenza B (RT-PCR) M. pneumoniae (PCR) Parainfluenza 1 (PCR) Parainfluenza 2 (PCR) Parainfluenza 3 (PCR) Parainfluenza 4 (PCR) RSV (PCR) Entero/Rhino (PCR) SARS-CoV-2 RNA (RT-PCR) 05/06/21 05/07/21 05/07/21 18:00 00:40 06:27 WBC RBC Hgb Hct MCV MCH MCHC RDW Plt Count MPV Immature Gran % (Auto) Neut % (Auto) Lymph % (Auto) [place] % (Auto) Eos % (Auto) Baso % (Auto) Lymph # (Auto) [place] # (Auto) Eos # (Auto) Baso # (Auto) Abs Immat Gran (auto) Absolute Neuts (auto) Absolute Nucleated RBC Nucleated RBC % (auto) PT 12.5 INR 1.1 APTT 30.9 D-Dimer 282 Sodium Potassium Chloride Carbon Dioxide Anion Gap BUN Creatinine Estim Creat Clear Calc Estimated GFR Random Glucose Lactic Acid Calcium Magnesium Ferritin Total Bilirubin Direct Bilirubin AST ALT Alkaline Phosphatase Lactate Dehydrogenase Troponin I High Sens C-Reactive Protein B-Natriuretic Peptide Total Protein Albumin Lipase Procalcitonin Beta HCG, Quant Urine Color BROWN Urine Appearance HAZY Urine pH 7.0 Ur Specific [place] <= 1.005 Urine Protein 2+ H Urine Glucose (UA) NEG Urine Ketones NEG Urine Blood 3+ H Urine Nitrite NEG Ur Leukocyte Esterase TRACE H Urine RBC 15-29 H Urine WBC 5-9 H Ur Squamous Epith Cells 4+ Urine Bacteria 2+ Urine Opiates Screen Urine Fentanyl Screen Ur Barbiturates Screen Ur Phencyclidine Scrn Ur Amphetamines Screen U Benzodiazepines Scrn Urine Cocaine Screen U Marijuana (THC) Screen Respiratory Panel [place] Adenovirus (Rapid PCR) B.pert (TEM-PCR) B.parapertussis DNA PCR C. pneumoniae DNA (PCR) Coronavirus OC43 (PCR) Coronavirus HKU1 (PCR) Coronavirus 229E (PCR) COVID-19 (DAVID) Negative COVID-19 Clin Com See Note Coronavirus NL63 (PCR) Human Metapneumovir PCR Influenza A (RT-PCR) Influenza B (RT-PCR) M. pneumoniae (PCR) Parainfluenza 1 (PCR) Parainfluenza 2 (PCR) Parainfluenza 3 (PCR) Parainfluenza 4 (PCR) RSV (PCR) Entero/Rhino (PCR) SARS-CoV-2 RNA (RT-PCR) 05/07/21 05/07/21 05/07/21 07:19 07:19 12:50 WBC 5.1 RBC 3.78 L Hgb 10.7 L Hct 32.5 L MCV 86.0 MCH 28.3 MCHC 32.9 RDW 13.2 Plt Count 268 MPV 10.4 Immature Gran % (Auto) 0.2 Neut % (Auto) 70.2 Lymph % (Auto) 17.6 L [place] % (Auto) 11.8 H Eos % (Auto) 0.2 Baso % (Auto) 0.0 Lymph # (Auto) 0.9 L [place] # (Auto) 0.6 Eos # (Auto) 0.0 Baso # (Auto) 0.0 Abs Immat Gran (auto) 0.01 Absolute Neuts (auto) 3.6 Absolute Nucleated RBC 0.000 Nucleated RBC % (auto) 0.0 PT INR APTT D-Dimer Sodium 139 Potassium 4.4 Chloride 107 Carbon Dioxide 25 Anion Gap 11 L BUN 10 Creatinine 0.59 Estim Creat Clear Calc 133.4 Estimated GFR > 60 Random Glucose 132 H Lactic Acid Calcium 9.6 Magnesium Ferritin Total Bilirubin Direct Bilirubin AST ALT Alkaline Phosphatase Lactate Dehydrogenase Troponin I High Sens C-Reactive Protein B-Natriuretic Peptide Total Protein Albumin Lipase Procalcitonin Beta HCG, Quant Urine Color Urine Appearance Urine pH Ur Specific [place] Urine Protein Urine Glucose (UA) Urine Ketones Urine Blood Urine Nitrite Ur Leukocyte Esterase Urine RBC Urine WBC Ur Squamous Epith Cells Urine Bacteria Urine Opiates Screen Urine Fentanyl Screen Ur Barbiturates Screen Ur Phencyclidine Scrn Ur Amphetamines Screen U Benzodiazepines Scrn Urine Cocaine Screen U Marijuana (THC) Screen Respiratory Panel [place] See Note Adenovirus (Rapid PCR) Not Detected B.pert (TEM-PCR) Not Detected B.parapertussis DNA PCR Not Detected C. pneumoniae DNA (PCR) Not Detected Coronavirus OC43 (PCR) Not Detected Coronavirus HKU1 (PCR) Not Detected Coronavirus 229E (PCR) Not Detected COVID-19 (DAVID) COVID-19 Clin Com Coronavirus NL63 (PCR) Not Detected Human Metapneumovir PCR Not Detected Influenza A (RT-PCR) Not Detected Influenza B (RT-PCR) Not Detected M. pneumoniae (PCR) Not Detected Parainfluenza 1 (PCR) Not Detected Parainfluenza 2 (PCR) Not Detected Parainfluenza 3 (PCR) Not Detected Parainfluenza 4 (PCR) Not Detected RSV (PCR) Not Detected Entero/Rhino (PCR) Not Detected SARS-CoV-2 RNA (RT-PCR) Not Detected 05/07/21 Unknown WBC RBC Hgb Hct MCV MCH MCHC RDW Plt Count MPV Immature Gran % (Auto) Neut % (Auto) Lymph % (Auto) [place] % (Auto) Eos % (Auto) Baso % (Auto) Lymph # (Auto) [place] # (Auto) Eos # (Auto) Baso # (Auto) Abs Immat Gran (auto) Absolute Neuts (auto) Absolute Nucleated RBC Nucleated RBC % (auto) PT INR APTT D-Dimer Sodium Potassium Chloride Carbon Dioxide Anion Gap BUN Creatinine Estim Creat Clear Calc Estimated GFR Random Glucose Lactic Acid Calcium Magnesium Ferritin Total Bilirubin Direct Bilirubin AST ALT Alkaline Phosphatase Lactate Dehydrogenase Troponin I High Sens C-Reactive Protein B-Natriuretic Peptide Total Protein Albumin Lipase Procalcitonin Beta HCG, Quant Urine Color Urine Appearance Urine pH Ur Specific [place] Urine Protein Urine Glucose (UA) Urine Ketones Urine Blood Urine Nitrite Ur Leukocyte Esterase Urine RBC Urine WBC Ur Squamous Epith Cells Urine Bacteria Urine Opiates Screen POSITIVE H Urine Fentanyl Screen POSITIVE H Ur Barbiturates Screen Not Detected Ur Phencyclidine Scrn Not Detected Ur Amphetamines Screen Not Detected U Benzodiazepines Scrn Not Detected Urine Cocaine Screen Not Detected U Marijuana (THC) Screen POSITIVE H Respiratory Panel [place] Adenovirus (Rapid PCR) B.pert (TEM-PCR) B.parapertussis DNA PCR C. pneumoniae DNA (PCR) Coronavirus OC43 (PCR) Coronavirus HKU1 (PCR) Coronavirus 229E (PCR) COVID-19 (DAVID) COVID-19 Clin Com Coronavirus NL63 (PCR) Human Metapneumovir PCR Influenza A (RT-PCR) Influenza B (RT-PCR) M. pneumoniae (PCR) Parainfluenza 1 (PCR) Parainfluenza 2 (PCR) Parainfluenza 3 (PCR) Parainfluenza 4 (PCR) RSV (PCR) Entero/Rhino (PCR) SARS-CoV-2 RNA (RT-PCR) Discharge Plan Discharge Patient Disposition: Left Against Medical Advice Discharge Diagnosis: Acute hypoxemic respiratory failure probably pneumonia, so far COVID test indicating negative, respiratory panel pending. Referrals: Vincent Hayes, [employer]- [Primary Care Provider] - 1 Week Discharge Medications: New cefuroxime axetil 500 mg tablet 500 mg PO BID Qty: 12 RF: 0 doxycycline hyclate 100 mg capsule 100 mg PO DAILY Qty: 12 RF: 0 dexamethasone 6 mg tablet 6 mg PO DAILY Qty: 9 RF: 0 Continued albuterol sulfate 2.5 mg /3 mL (0.083 %) solution for nebulization 2.5 mg inhalation Q4-6H PRN (Reason: Wheezing) RF: 0 nicotine 14 mg/24 hr patch 24 hour 1 patch transdermal DAILY Qty: 14 RF: 0 albuterol sulfate [ProAir HFA] 90 mcg/actuation Hfa Aerosol Inhaler 2 puff INHALATION QID PRN (Reason: Dyspnea) RF: 0 omeprazole 40 mg capsule,delayed release(DR/EC) 1 cap PO BEDTIME RF: 0 Vraylar 1.5 mg capsule 1 cap PO BEDTIME RF: 0 prazosin 2 mg capsule 1 cap PO BEDTIME RF: 0 cyclobenzaprine 5 mg tablet 1.5 tab PO TID RF: 0 gabapentin 600 mg tablet 600 mg PO TID Qty: 21 RF: 0 Discharge Orders: Discharge Order (Routine); Ordered 05/07/21 Ordered By: Bari Jenkins Care Plan Goals: Patient came with acute hypoxemic respiratory failure secondary to probable pneumonia-her initial COVID test was positive, and respiratory panel is pending also blood cultures are pending. She feels somewhat shortness of breath was better. She decided to sign against medical advise-wants to go risks of leaving against the medical advice including worsening of pneumonia, sepsis , -discussed in detail she understand and she is alert oriented x3 wants to leave, discharged on p.o. antibiotics also given dexamethasone for now since the the respiratory panel is still pending she was advised to check it with her primary doctor and the the course of steroid as per PCP further. She was also advised to come back if any shortness of breath worsening or any new finding fever chills Health Concerns: As above. Plan of Treatment: As above. Assessment: As above.
== END 2021-05-07 18:43 | disposition left against medical advice (07) | DRG 139 ==
LOC: HO.ED 21:31 → HO.EDOVER 05-07 00:05 → HO.IMC 05-07 12:59
PROVIDERS: Physician Assistant; Admitting Provider Internal Medicine; Emergency Provider Emergency Medicine; PCP Nurse Practitioner Family; Visit Provider Internal Medicine
DX: J18.0 Bronchopneumonia, unspecified organism (principal); J96.01 Acute respiratory failure with hypoxia; F17.210 Nicotine dependence, cigarettes, uncomplicated; J44.0 Chronic obstructive pulmonary disease with (acute) lower respiratory infection; F43.10 Post-traumatic stress disorder, unspecified; K21.9 Gastro-esophageal reflux disease without esophagitis; Z71.6 Tobacco abuse counseling; Z20.822 Contact with and (suspected) exposure to COVID-19; Z79.899 Other long term (current) drug therapy
CPT/HCPCS: 36415; 71045; 71275; 80048; 80076; 80307; 81001; 82728; 83605; 83615; 83690; 83735; 83880; 84145; 84484; 84702; 85025; 85379; 85610; 85730; 86140; 87040; 87086; 87633; 87635; 93005; 94640; 94644; 99285; J0696; J1100; J2060; J2270; J3475; Q9967

== ENCOUNTER 2021-05-31 10:59 | Inpatient (IN) | payer OTHER, SELFPAY ==
[2021-05-31] VITALS (23 sets, daily range): BP systolic 120–148; BP diastolic 77–106; PULSE 89–112; RESP 13–30; TEMP 36.6–36.8; O2SAT 23–97; BMI 21.6; BMI 26.1
--- NOTE | ~2021-05-31 | XR_ITS ---
EXAMINATION: XR CHEST CLINICAL INFORMATION: Dyspnea. COMPARISON: None TECHNIQUE: Frontal view of the chest was obtained. FINDINGS: The lungs are well-expanded and clear acute process. The heart size and pulmonary vascularity is normal. There is mild dextroscoliosis, otherwise no gross bony abnormality seen. XR/XR chest 1V IMPRESSION: Unremarkable chest exam.
--- NOTE | ~2021-05-31 | CT_ITS ---
EXAMINATION: CT CHEST WITHOUT CONTRAST CLINICAL INFORMATION: Dyspnea. Evaluate for pneumonia. COMPARISON: CTA of the chest dated from 05/06/2021. TECHNIQUE: Multidetector volumetric CT imaging of the chest was done. Axial MIP volume rendering provided. Sagittal and coronal reformatted images were obtained. This CT examination was performed using dose optimization techniques as appropriate, variously including the following: *Automated exposure control *Adjustment of mA and/or kV according to patient size (this includes techniques or standardized protocols for targeted exams where dose is matched to indication/reason for exam; i.e. extremities or head) *Use of iterative reconstruction technique DLP: 196 mGy-cm FINDINGS: LUNGS: Many of the previously described groundglass opacities are significantly improved. However, there are a few new groundglass opacities, for instance as visualized in the medial aspect of the left upper lobe (192: 5), superior segment of the left lower lobe (220:5) and right middle lobe (247:5). A few tree-in-bud opacities are noted, some of which are stable for instance in the right upper lobe (126:5) and others of which are new/increased for instance in the left upper lobe on image 195:5. There is redemonstration of several subcentimeter pulmonary nodules, some of which are likely intrabronchial and represent mucous secretions. For example, a stable 4 mm nodularity in the right lower lobe (351:5), and a similar 2 mm nodularity in the right upper lobe (171:5). The main airways are patent. MEDIASTINUM: Normal heart size. No pericardial effusion. There are a few nonspecific slightly prominent mediastinal lymph nodes without change. Fat stranding in the expected location of the thymus is stable. No hilar lymphadenopathy. PLEURA: There is no pleural effusion. No pleural mass or thickening. AXILLA: No lymphadenopathy. UPPER ABDOMEN: Unremarkable. OSSEOUS STRUCTURES: No acute or aggressive osseous abnormalities. CT/CT chest wo con IMPRESSION: Mixed evolution of findings as some of the previously visualized groundglass opacities have resolved but others are new. Similarly, there are some new tree-in-bud opacities. This could be related with a multifocal infectious/inflammatory process of the small airways. Recommend a short-term follow-up to ensure complete resolution of these findings.
--- NOTE | 2021-05-31 11:17 | ED_ITS ---
HPI - Asthma General Chief Complaint: Asthma Stated Complaint: diff breathing Time Seen by Provider: 05/31/21 11:11 Source: patient and old records reviewed Mode of arrival: ambulatory Limitations: other (respirtory distress) History of Present Illness complaint: asthma attack , shortness of breath and wheezing Onset (ago): day(s) (2) Severity: severe Context: none known Associated symptoms: dry cough Asthma History: childhood onset Treatments Prior to Arrival: inhaled bronchodilator Related Data Home Medications Medication Instructions Recorded Confirmed albuterol sulfate 2.5 mg INHALATION Q4-6H PRN 07/04/20 05/31/21 prazosin 2 mg capsule 1 cap PO BEDTIME 04/17/21 05/31/21 albuterol sulfate 90 mcg/actuation 2 puff INHALATION QID PRN 05/06/21 05/31/21 aerosol inhaler (ProAir HFA) cyclobenzaprine 5 mg tablet 2.5 tab PO TID PRN 05/31/21 05/31/21 Previous Rx's Medication Instructions Recorded nicotine 14 mg/24 hr daily 1 patch TRANSDERMAL DAILY #14 ea 03/30/21 transdermal patch cariprazine 1.5 mg capsule 1.5 mg PO BEDTIME 30 Days #30 cap 05/08/21 (Vraylar) doxepin 10 mg capsule 10 mg PO BEDTIME 30 Days #30 cap 05/08/21 gabapentin 600 mg tablet 600 mg PO TID 30 Days #90 tab 05/08/21 omeprazole 40 mg capsule,delayed 40 mg PO .morning 30 Days #30 cap 05/08/21 release Allergies Allergy/AdvReac Type Severity Reaction Status Date / Time latex [LATEX] Allergy Intermediate RASH Verified 05/31/21 11:03 adhesive tape [ADHESIVE TAPE] AdvReac Intermediate RASH Verified 05/31/21 11:03 Review of Systems Review of Systems: ROS unable to be obtained due to respiratory distress PMFSH Past Medical History Attestation statement: The following information was validated with the patient. Medical History Anxiety Asthma Bipolar disorder COVID-19 Crohn's disease Depression GERD (gastroesophageal reflux disease) Hx of substance abuse Opioid use disorder Pneumonia due to COVID-19 virus PTSD (post-traumatic stress disorder) Family History Family History Father Colon cancer Mother No problems noted. Brother Autism Sister Bipolar disorder Maternal Aunt Breast cancer Social History Social History Household Members: Significant Other Housing: Other Housing Other:: hotel Do you presently have visiting nurse or other home services: No Alcohol intake: unknown Patient Tobacco Use Status: Current everyday Tobacco user Tobacco use type: Cigarette Cigarettes Per Day: 5 Years Smoked: 8 e-Cigarette/Vaping Use: Never Used Second Hand Smoke Exposure: Yes Use of substances other than those prescribed or required for medical reasons: Yes Substance Use Type: Heroin Substance Use Frequency: Daily Advance Directives: Yes Advance Directives on File: Yes Advance Directives Date on File: 05/07/21 Current occupational status: unemployed Physical Exam Vital Signs: Vital Signs: Last Vital Signs Temp 97.8 F 05/31/21 11:38 Pulse 100 05/31/21 13:39 Resp 28 H 05/31/21 12:01 BP 148/106 H 05/31/21 12:00 Pulse Ox 97 05/31/21 12:00 Body Mass Index 21.6 Appearance: Alert. Oriented X3. Moderate acute distress. Eyes: Pupils equal, round and reactive to light. ENT: Pharynx normal. Neck: Normal inspection. Neck supple. CVS: tachycardic heart rate and rhythm. Pulses normal. Respiratory: Moderate respiratory distress retractions and tachypnea single words only . Breath sounds diffuse insp and exp wheezes Abdomen: Soft and nontender. Skin: Skin warm and diaphoretic. pale skin color. Normal skin turgor. Extremities: No lower extremity edema. No calf ttp Neuro: Oriented X 3. No motor deficit. No sensory deficit. Course Course Course Narrative: patient appears more tired and fatigued falling asleep during neb treatments, very anxious intermittently , grunting will place on bipap and ketamine her for anxiety/bronchodilator patient not compliant with with treatments due to anxiety will try bipap to prevent intubation bipap used for asthma and not infection or severe sepsis patient's breathing is more controlled at this time on bipap will continue to observe slight emergence reaction noted - low dose versed ordered breathing better controlled now will continue to observe patient now reports she last used yesterday and now is in withdrawal she was placed at 1145 will attempt trial off 135pm the patient took her own bipap off, she is doing okay will repeat neb 2.5mg and monitor her RA sats are 94% stable off of bipap 95% on 4L NC will need admission for further management MDM - Asthma MDM Narrative Medical decision making narrative: 25 yo female with hx of substance abuse, mental health issues, pneumonia, severe asthma reports two days of asthma exacerbation, she also notes she is vaccinated and had COVID at the start of april though I cannot verify that through the EMR at this time hour long 10mg neb, IV steroids, IV magnesium, labs, CXR, COVID swab - anticipate admission given her degree of hypoxia. Lab Data Result diagrams: 05/31/21 11:21 05/31/21 11:21 Labs: Lab Results 05/31/21 05/31/21 05/31/21 Range/Units 11:21 11:21 11:22 WBC 11.1 H (4.8-10.8) X10*3/uL RBC 4.54 D (4.20-5.50) X10*6/uL Hgb 12.7 (12.0-16.0) g/dl Hct 39.2 D (37-47) % MCV 86.3 (80-98) fL MCH 28.0 (27.0-33.0) pg MCHC 32.4 (31.0-35.0) g/dl RDW 13.4 (11.0-16.0) % Plt Count 291 (160-400) X10*3/uL MPV 10.2 (9.4-12.3) fL Immature Gran % (Auto) 0.3 (0.0-0.4) % Neut % (Auto) 64.7 (45-73) % Lymph % (Auto) 13.7 L (20-40) % [place] % (Auto) 6.0 (2-11) % Eos % (Auto) 14.9 H (0-4) % Baso % (Auto) 0.4 (0-2) % Lymph # (Auto) 1.5 (1.2-4.9) X10*3/uL [place] # (Auto) 0.7 (0.1-1.2) X10*3/uL Eos # (Auto) 1.7 H (0.0-0.4) X10*3/uL Baso # (Auto) 0.0 (0.0-0.2) X10*3/uL Abs Immat Gran (auto) 0.03 (0.00-0.03) X10*3/uL Absolute Neuts (auto) 7.2 (2.0-8.3) X10*3/uL Absolute Nucleated RBC 0.000 (0.0-0.012) X10*3/uL Nucleated RBC % (auto) 0.0 (0.0-0.2) /100WBC VBG pH (7.32-7.43) VBG pCO2 mmHg VBG pO2 mmHg VBG HCO3 (22-26) mmol/L VBG O2 Saturation % VBG Base Excess mmol/L Sodium 138 (135-145) mmol/L Potassium 4.8 (3.3-5.1) mmol/L Chloride 104 (96-108) mmol/L Carbon Dioxide 27 (22-29) mmol/L Anion Gap 12 (12-20) BUN 9 (9-16) mg/dL Creatinine 0.64 (0.5-1.4) mg/dL Estim Creat Clear Calc 123.0 Estimated GFR > 60 Random Glucose 121 H (60-115) mg/dL Lactic Acid (0.5-2.0) mmol/L Calcium 9.5 (8.4-10.2) mg/dL Magnesium 2.2 (1.6-2.6) mg/dL Total Bilirubin < 0.2 (0.0-1.0) mg/dL Direct Bilirubin < 0.2 (0.0-0.5) mg/dL AST 26 D (5-31) U/L ALT 15 (0-31) U/L Alkaline Phosphatase 91 (39-117) U/L Total Protein 7.3 (6.5-8.0) g/dL Albumin 4.3 (3.5-5.0) g/dL Beta HCG, Quant mIU/mL COVID-19 (DAVID) Negative (Negative) COVID-19 Clin Com See Note 05/31/21 05/31/21 05/31/21 Range/Units 11:26 11:30 11:30 WBC (4.8-10.8) X10*3/uL RBC (4.20-5.50) X10*6/uL Hgb (12.0-16.0) g/dl Hct (37-47) % MCV (80-98) fL MCH (27.0-33.0) pg MCHC (31.0-35.0) g/dl RDW (11.0-16.0) % Plt Count (160-400) X10*3/uL MPV (9.4-12.3) fL Immature Gran % (Auto) (0.0-0.4) % Neut % (Auto) (45-73) % Lymph % (Auto) (20-40) % [place] % (Auto) (2-11) % Eos % (Auto) (0-4) % Baso % (Auto) (0-2) % Lymph # (Auto) (1.2-4.9) X10*3/uL [place] # (Auto) (0.1-1.2) X10*3/uL Eos # (Auto) (0.0-0.4) X10*3/uL Baso # (Auto) (0.0-0.2) X10*3/uL Abs Immat Gran (auto) (0.00-0.03) X10*3/uL Absolute Neuts (auto) (2.0-8.3) X10*3/uL Absolute Nucleated RBC (0.0-0.012) X10*3/uL Nucleated RBC % (auto) (0.0-0.2) /100WBC VBG pH 7.43 (7.32-7.43) VBG pCO2 43 mmHg VBG pO2 141 mmHg VBG HCO3 29 H (22-26) mmol/L VBG O2 Saturation 99.0 % VBG Base Excess 4.4 mmol/L Sodium (135-145) mmol/L Potassium (3.3-5.1) mmol/L Chloride (96-108) mmol/L Carbon Dioxide (22-29) mmol/L Anion Gap (12-20) BUN (9-16) mg/dL Creatinine (0.5-1.4) mg/dL Estim Creat Clear Calc Estimated GFR Random Glucose (60-115) mg/dL Lactic Acid 0.9 (0.5-2.0) mmol/L Calcium (8.4-10.2) mg/dL Magnesium (1.6-2.6) mg/dL Total Bilirubin (0.0-1.0) mg/dL Direct Bilirubin (0.0-0.5) mg/dL AST (5-31) U/L ALT (0-31) U/L Alkaline Phosphatase (39-117) U/L Total Protein (6.5-8.0) g/dL Albumin (3.5-5.0) g/dL Beta HCG, Quant < 2 mIU/mL COVID-19 (DAVID) (Negative) COVID-19 Clin Com ECG Data Attestation: I personally reviewed and interpreted this ECG as follows: ECG interpretation date: 05/31/21 ECG interpretation time: 11:36 Interpretation: Rate: 103 Rhythm: sinus tachycardia [place]: normal Normal P waves. Normal RIGO. Normal QRS complex. ST T wave : no [place], nonspecific qTC: normal prior studies: no acute ischemia The study has been interpreted contemporaneously by me. Critical Care Time Critical Care Time Critical Care Time: Yes Total Critical Care Time: 90 Attestation: reassessments, repeat hour long nebs, bipap management I attest to this time spent taking care of the patient Discharge Plan Discharge Clinical Impression: SOB (shortness of breath), Asthma with status asthmaticus, Hypoxia, Opiate withdrawal Patient Disposition: Admitted As Inpatient
[2021-05-31] MEDS: Albuterol Sulfate (0.083%) 2.5 MG/3 ML VIAL.NEB 10 MG INHALE (11:18)
[2021-05-31 11:28] LABS: MANUAL DIFF FLAG NO
[2021-05-31 11:31] LABS: VBG Base Excess 4.4 mmol/L; VBG HCO3 29 mmol/L (22-26); VBG pCO2 43 mmHg; VBG pH 7.43 (7.32-7.43); VBG pO2 141 mmHg
[2021-05-31 11:31] LABS: Venous Blood Gas Refer to POC result
[2021-05-31] MEDS: Magnesium Sulfate/H2O 2 GM/50 ML PIGGYBACK IV (11:32)
[2021-05-31] MEDS: 0.9 % Sodium Chloride 1,000 ML 999 ML IVCONT (11:32)
[2021-05-31 11:38] LABS: Basophils Percent Auto 0.4 % (0-2); Eosinophils Absolute Auto 1.7 X10*3/uL (0.0-0.4); Eosinophils Percent Auto 14.9 % (0-4); Hematocrit 39.2 % (37-47); Hemoglobin 12.7 g/dl (12.0-16.0); Imm Gran Abs Auto 0.03 X10*3/uL (0.00-0.03); Imm Gran Pct Auto 0.3 % (0.0-0.4); Lymphocytes Absolute Auto 1.5 X10*3/uL (1.2-4.9); Lymphocytes Percent Auto 13.7 % (20-40); Mean Corpuscular HGB Conc 32.4 g/dl (31.0-35.0); Mean Corpuscular Volume 86.3 fL (80-98); Mean Platelet Volume 10.2 fL (9.4-12.3); Monocytes Absolute Auto 0.7 X10*3/uL (0.1-1.2); Neutrophils Absolute Auto 7.2 X10*3/uL (2.0-8.3); Neutrophils Percent Auto 64.7 % (45-73); Platelet Count 291 X10*3/uL (160-400); Red Blood Count 4.54 X10*6/uL (4.20-5.50); Red Cell Distribution Width 13.4 % (11.0-16.0); White Blood Count 11.1 X10*3/uL (4.8-10.8)
--- NOTE | 2021-05-31 11:46 | PHA.MEDREC ---
Pharmacy Consult ? Medication Reconciliation Pharmacy has completed the medication reconciliation. Patient reports being on ativan, klonipin, and suboxone. Ativan and Klonipin have no history and is not in the PDMP. Suboxone was last filled on 02/22/21 for 8mg/2mg 2 films a day. Reports using heroin, not having a home and has been able to get her medication. Sertraline was filled in February. Nereida Raines, FernandoD
[2021-05-31 11:48] LABS: Alanine Aminotransferase 15 U/L (0-31); Albumin Level 4.3 g/dL (3.5-5.0); Alkaline Phosphatase 91 U/L (39-117); Anion Gap 12 (12-20); Aspartate Amino Transferase 26 U/L (5-31); Bilirubin Direct < 0.2 mg/dL (0.0-0.5); Bilirubin Total < 0.2 mg/dL (0.0-1.0); Blood Urea Nitrogen 9 mg/dL (9-16); Calcium 9.5 mg/dL (8.4-10.2); Carbon Dioxide 27 mmol/L (22-29); Chloride 104 mmol/L (96-108); Estimated Glomerular Filt Rate > 60; Glucose Random 121 mg/dL (60-115); Magnesium 2.2 mg/dL (1.6-2.6); Potassium 4.8 mmol/L (3.3-5.1); Sodium 138 mmol/L (135-145); Total Protein 7.3 g/dL (6.5-8.0)
[2021-05-31 11:48] LABS: COVID-19 Test Negative (Negative)
[2021-05-31 11:52] LABS: Lactic Acid 0.9 mmol/L (0.5-2.0)
[2021-05-31] MEDS: Ketamine HCl/NS 50 MG/5 ML SYRINGE 25 MG IVPUSH (11:52)
[2021-05-31 12:03] LABS: HCG Quantitative < 2 mIU/mL
[2021-05-31] MEDS: Midazolam HCl/PF 2 MG/2 ML VIAL 1 MG IVPUSH (12:04)
[2021-05-31] MEDS: Albuterol Sulfate (0.083%) 2.5 MG/3 ML VIAL.NEB 5 MG INHALE (12:07)
--- NOTE | 2021-05-31 12:12 | PC.NURSE ---
Pt has a history of asthma and substance abuse and arrived to ED with increased work of breathing, pale, diaphoresis and in obvious respiratory distress. Pt immediately brought back to room 9 where patient was started on continuous albuterol nebulizers. IV established wiht IV mag and IV fluids. Pt continued to be anxious and not that compliant with the neb. MD at the bedside ordered pt to be placed on bipap along with administration of iv ketamine. Pt initially tolerated it well, but became increasingly anxious and teary. pt given IV versed with noted improvement. Pt remains on bipap with continuous nebs at 14/8 with Fi02 of 25%.
[2021-05-31] MEDS: Albuterol Sulfate (0.083%) 2.5 MG/3 ML VIAL.NEB INHALE ×2 (13:38→21:50)
--- NOTE | 2021-05-31 13:57 | PC.NURSE ---
Pt requested to be taken of the bipap due to increased anxiety. will trial patient off the bipap and is now on a nasal cannula at 4lpm.
[2021-05-31] MEDS: Morphine Sulfate 2 MG/ML CARTRIDGE IVPUSH (14:59)
--- NOTE | 2021-05-31 14:59 | P.HPHOSP_ITS ---
History of Present Illness Date of Service: 05/31/21 Chief Complaint: shortness of breath This is a 25 yo F with a PMH of asthma, chronic opiate use, PTSD who presents to the hospital with complaints of shortness of breath with associated wheezing, non-productive cough, no fevers or chills for the last 2-3 days. The patient endorses daily heroine use (snorts) with last use being on the day of arrival. She reports that she used her inhalers at home without much help and so she presented to the hospital. She denies any known sick COVID 19 contacts. Upon arrival to the ED, the patient was found to be in respiratory distress with diffuse wheezing. She was initially given updrafts and began to appear as if she was tiring. She was falling asleep, anxious and grunting. She was promptly placed on BIPAP for impending respiratory failure. After several hours on BIPAP, she began to improve and removed the mask herself. Her respiratory status improved dramatically, but she still had diffuse wheezing and was requiring 4L NC to keep saturations above 90. Admission was requested for further treatment. Patient is seen in the ED around 245-3pm. She reports that she is having trouble breathing and also feels very anxious. She reports minimal improvement since arrival. She reports that she has been using heroin (snorting) since she stopped her suboxone about 1 month ago. While awaiting in the ED, addiction medicine consult was sought, but the patient refused this initially. After discussing with her again -- at this time, she is willing to speak with someone. Review of Systems Review of Systems: General - denies fevers or chills, +fatigue HEENT -denies blurred vision, denies headache, denies sore throat Cardiovascular - denies chest pain or palpitations, denies edema Respiratory - +SOB, +non-productive cough, +wheezing, denies pleuritic chest pain Gastrointestinal - denies abdominal pain, nausea, vomiting, diarrhea - denies flank pain, denies dysuria, denies frequency or urgency Musculoskeletal - denies back pain, denies hip pain, denies knee pain, denies shoulder pain Neurological - denies any focal weakness or numbness Skin, denies any bruising or redness Psychiatric - denies any suicidal ideation, hallucinations, homicidal ideation; +anxiety Endocrinology - denies intolerance to hot / cold temperatures PMFSH Medical History (Updated 05/31/21 @ 15:17 by Casey Musa MD) Anxiety Asthma Bipolar disorder COVID-19 Crohn's disease Depression GERD (gastroesophageal reflux disease) Hx of substance abuse Opioid use disorder Pneumonia due to COVID-19 virus PTSD (post-traumatic stress disorder) Family History Father Colon cancer Mother No problems noted. Brother Autism Sister Bipolar disorder Maternal Aunt Breast cancer Pertinent family history: . Social History Household Members: Significant Other Housing: Other Housing Other:: hotel Do you presently have visiting nurse or other home services: No Alcohol intake: unknown Patient Tobacco Use Status: Current everyday Tobacco user Tobacco use type: Cigarette Cigarettes Per Day: 5 Years Smoked: 8 e-Cigarette/Vaping Use: Never Used Second Hand Smoke Exposure: Yes Use of substances other than those prescribed or required for medical reasons: Yes Substance Use Type: Heroin Substance Use Frequency: Daily Advance Directives: Yes Advance Directives on File: Yes Advance Directives Date on File: 05/07/21 Current occupational status: unemployed Meds Allergies Allergy/AdvReac Type Severity Reaction Status Date / Time latex [LATEX] Allergy Intermediate RASH Verified 05/31/21 11:03 adhesive tape [ADHESIVE TAPE] AdvReac Intermediate RASH Verified 05/31/21 11:03 Active Medications: Current Medications Acetaminophen (Acetaminophen 325 Mg Tablet) 650 mg PO Q6H PRN PRN Reason: Pain, Mild (Pain Scale 1-3) Albuterol/Ipratropium (Albuterol/Iprat 2.5/0.5mg 3 Ml Ampul.Neb) 3 ml INHALE RQ4H WHILE AWAKE SHEILA Enoxaparin Sodium (Enoxaparin Sodium 40 Mg/0.4 Ml Syringe) 40 mg SUBCUT Q24H SHEILA Hydroxyzine HCl (Hydroxyzine Hcl 25 Mg Tablet) 25 mg PO Q6H PRN PRN Reason: Anxiety Methylprednisolone Sodium Succinate (Methylprednisolone Sod Succ 40 Mg/Ml Vial) 40 mg IVPUSH Q12H SHEILA Morphine Sulfate (Morphine Sulfate 4 Mg/Ml Cartridge) 2 mg IVPUSH Q4H PRN; Protocol PRN Reason: respiratory distress Ondansetron HCl (Ondansetron Hcl 4 Mg/2 Ml Vial) 4 mg IVPUSH Q8H PRN PRN Reason: Nausea and Vomiting Pharmacy Consult (Consult Rx Perform Med Rec) 1 each MISCELLANE ONCE PRN PRN Reason: Consult order Sodium Chloride (0.9 % Sodium Chloride Flush 3 Ml Syringe) [facility] Medications Medication Instructions Recorded Confirmed Last Taken Type albuterol sulfate 2.5 mg INHALATION Q4-6H PRN 07/04/20 05/31/21 Unknown History prazosin 2 mg capsule 1 cap PO BEDTIME 04/17/21 05/31/21 Unknown History albuterol sulfate 90 mcg/actuation 2 puff INHALATION QID PRN 05/06/21 05/31/21 Unknown History aerosol inhaler (ProAir HFA) cyclobenzaprine 5 mg tablet 2.5 tab PO TID PRN 05/31/21 05/31/21 Unknown History Physical Exam Vital Signs and Narrative: Vital Signs: Last Vital Signs Temp 97.8 F 05/31/21 11:38 Pulse 103 H 05/31/21 14:49 Resp 29 H 05/31/21 14:49 BP 135/100 H 05/31/21 14:49 Pulse Ox 95 05/31/21 14:49 Body Mass Index 21.6 Const: Other: Constitutional - In distress Eyes - PERRLA, EOMI Cardiovascular - S1S2, RRR, No edema Respiratory - Diffuse wheezing, respiratory distress with accessory muscle use + tachypnea around 30 Gastrointestinal - NT / ND; +BS; No rebound or guarding - No CVA tenderness Extremities - no calf tenderness bilaterally, no swelling Musculoskeletal - Normal inspection, normal ROM Skin - Warm/Dry Neurological - Alert & oriented x3, No focal deficit Psychological - appears anxious Results Labs CBC and Chem 7: 05/31/21 11:21 05/31/21 11:21 Labs: Laboratory Results - last 24 hr 05/31/21 05/31/21 05/31/21 11:21 11:21 11:22 MCV 86.3 MCH 28.0 MCHC 32.4 RDW 13.4 Plt Count 291 MPV 10.2 Immature Gran % (Auto) 0.3 Neut % (Auto) 64.7 Lymph % (Auto) 13.7 L [place] % (Auto) 6.0 Eos % (Auto) 14.9 H Baso % (Auto) 0.4 Lymph # (Auto) 1.5 [place] # (Auto) 0.7 Eos # (Auto) 1.7 H Baso # (Auto) 0.0 Abs Immat Gran (auto) 0.03 Absolute Neuts (auto) 7.2 Absolute Nucleated RBC 0.000 Nucleated RBC % (auto) 0.0 VBG pH VBG pCO2 VBG pO2 VBG HCO3 VBG O2 Saturation VBG Base Excess Anion Gap 12 Estim Creat Clear Calc 123.0 Estimated GFR > 60 Random Glucose 121 H Lactic Acid Calcium 9.5 Magnesium 2.2 Total Bilirubin < 0.2 Direct Bilirubin < 0.2 AST 26 D ALT 15 Alkaline Phosphatase 91 Total Protein 7.3 Albumin 4.3 Beta HCG, Quant COVID-19 (DAVID) Negative COVID-19 Clin Com See Note 05/31/21 05/31/21 05/31/21 11:26 11:30 11:30 MCV MCH MCHC RDW Plt Count MPV Immature Gran % (Auto) Neut % (Auto) Lymph % (Auto) [place] % (Auto) Eos % (Auto) Baso % (Auto) Lymph # (Auto) [place] # (Auto) Eos # (Auto) Baso # (Auto) Abs Immat Gran (auto) Absolute Neuts (auto) Absolute Nucleated RBC Nucleated RBC % (auto) VBG pH 7.43 VBG pCO2 43 VBG pO2 141 VBG HCO3 29 H VBG O2 Saturation 99.0 VBG Base Excess 4.4 Anion Gap Estim Creat Clear Calc Estimated GFR Random Glucose Lactic Acid 0.9 Calcium Magnesium Total Bilirubin Direct Bilirubin AST ALT Alkaline Phosphatase Total Protein Albumin Beta HCG, Quant < 2 COVID-19 (DAVID) COVID-19 Clin Com Imaging Radiologist's Impressions: Impressions Chest X-Ray 05/31/21 11:12 IMPRESSION: Unremarkable chest exam. Assessment and Plan (1) Acute respiratory failure with hypoxia: Status: Acute This is a 25 yo F with a PMH of asthma, opiate use disorder - previously on suboxone, PTSD who presents to the hospital with complaints of progressive shortness of breath, non-productive cough, wheezing all of which have progressed and have not responded to bronchodilator treatment at home. She now presents with impending respiratory failure due to asthma exacerbation -- likely secondary to active and continual opiate use. 1. Acute Respiratory Failure with hypoxia Due to asthma exacerbation -- see details below Continue O2 (4L for now) to keep saturation >90% morphine 2mg IV PRN for respiratory distress, avoid combining with benzos 2. Asthma Exacerbation suspected secondary to snorting opiates IV solu-medrol Scheduled + PRN bronchodilators STAT VBG/ABG at any signs of decompensation 3. Opiate use disorder previously on suboxone but interested in methadone at this time will consult addiction medicine 4. PTSD/anxiety continue her baseline meds avoid benzos Full Code DVT pptx -- Lovenox Quality Stroke Does the patient have a stroke diagnosis?: No VTE Prior VTE?: No VTE Risk Level:: Medical - moderate - high VTE Device Contraindication: Treatment Not Indicated VTE Drug Contraindication: N/A - Med Ordered
[2021-05-31] MEDS: methylPREDNISolone Sod Succ 40 MG/ML VIAL IVPUSH ×3 (15:16→22:20)
[2021-05-31] MEDS: Albuterol/Iprat 2.5/0.5MG 3 ML AMPUL.NEB INHALE ×2 (15:42→19:35)
--- NOTE | 2021-05-31 15:59 | PC.NURSE ---
Pt continues to appear uncomfortable and anxious and is in respiratory distress with audible wheezes. Pt is tachypneic and looks tired. Respiratory paged to bedside to assist with placing patient back on bipap.
--- NOTE | 2021-05-31 16:58 | P.CONCC_ITS ---
History of Present Illness Data of Consult Service Date: 05/31/21 Requesting physician: Casey Musa Primary Care Provider: Vincent Hayes [facility] HPI Reason for consult: Status asthmaticus/dyspnea 25-year-old female with known polysubstance abuse repeated episodes of status asthmaticus the last 1 a month ago with scattered bilateral ground-glass infiltrates and markedly elevated IgE level currently she has got very significant eosinophilia and is currently on BiPAP with marked diaphragmatic effort and and markedly prolonged expiratory time and an EKG that reflects right ventricular preponderance and echo showing right ventricular dilatation normal left ventricular dimensions with normal systolic reserve and no primary valve or pericardial disease Apparently also has bipolar disorder and her drugs are usually fentanyl and snorted heroin and currently also marijuana is positive on this toxicology screen Also takes venlafaxine in and sertraline and doxepin and trazodone Ultimately she was also positive for cocaine CT scan came back at the end of the day showing another similar picture to April with scattered bilateral and diffuse a diffuse in bilateral islands of ground-glass infiltrates certainly appearing to be a form of atypical or hypersensitivity like pneumonitis Review of Systems Review of Systems: No other associated issues such as skin changes rashes joint pain or inflammation and although she has Crohn's disease is no active therapy right now so I have to assume that that she is in remission Yes all other systems are reviewed and are negative PMFSH Past Medical History Medical History (Updated 06/01/21 @ 07:12 by Vanessa Bueno MD) Anxiety Asthma Bipolar disorder COVID-19 Crohn disease Crohn's disease Depression GERD (gastroesophageal reflux disease) Hx of substance abuse Opioid use disorder Pneumonia due to COVID-19 virus PTSD (post-traumatic stress disorder) Family History Family History Father Colon cancer Mother No problems noted. Brother Autism Sister Bipolar disorder Maternal Aunt Breast cancer Social History Social History Household Members: Significant Other and Other Housing: Homeless Housing Other:: 6 MONTHS HOMELESS Do you presently have visiting nurse or other home services: No Alcohol intake: unknown Patient Tobacco Use Status: Current everyday Tobacco user Tobacco use type: Cigarette Cigarette Packs Per Day: 0.33 Cigarettes Per Day: 6.6 Years Smoked: 9 e-Cigarette/Vaping Use: Currently Using Second Hand Smoke Exposure: Yes Substance Use Type: Crack/Cocaine and Heroin Advance Directives Date on File: 05/07/21 Current occupational status: unemployed Meds Allergies Allergy/AdvReac Type Severity Reaction Status Date / Time latex [LATEX] Allergy Intermediate RASH Verified 05/31/21 11:03 adhesive tape [ADHESIVE TAPE] AdvReac Intermediate RASH Verified 05/31/21 11:03 Active Medications: Current Medications Acetaminophen (Acetaminophen 325 Mg Tablet) 650 mg PO Q6H PRN PRN Reason: Pain, Mild (Pain Scale 1-3) Albuterol/Ipratropium (Albuterol/Iprat 2.5/0.5mg 3 Ml Ampul.Neb) 3 ml INHALE RQ4H WHILE AWAKE COUNTS INCLUDE 234 BEDS AT THE [facility] Last Admin: 05/31/21 15:42 Dose: 3 ml Documented by: Cariprazine (Cariprazine Hcl 1.5 Mg Capsule) 1.5 mg PO BEDTIME COUNTS INCLUDE 234 BEDS AT THE [facility] Enoxaparin Sodium (Enoxaparin Sodium 40 Mg/0.4 Ml Syringe) 40 mg SUBCUT Q24H COUNTS INCLUDE 234 BEDS AT THE [facility] Last Admin: 05/31/21 15:10 Dose: Not Given Documented by: Gabapentin (Gabapentin 600 Mg Tablet) 600 mg PO TID COUNTS INCLUDE 234 BEDS AT THE [facility] Last Admin: 05/31/21 16:26 Dose: Not Given Documented by: Methylprednisolone Sodium Succinate (Methylprednisolone Sod Succ 40 Mg/Ml Vial) 40 mg IVPUSH Q6H SHEILA Morphine Sulfate (Morphine Sulfate 4 Mg/Ml Cartridge) 2 mg IVPUSH Q4H PRN; Protocol PRN Reason: respiratory distress Nicotine (Nicotine 14 Mg Patch.Td24) 14 mg TRANSDERMA DAILY COUNTS INCLUDE 234 BEDS AT THE [facility] Omeprazole (Omeprazole 40 Mg Capsule.Dr) 40 mg PO DAILY@0630 COUNTS INCLUDE 234 BEDS AT THE [facility] Pharmacy Consult (Consult Rx Perform Med Rec) 1 each MISCELLANE ONCE PRN PRN Reason: Consult order Sodium Chloride (0.9 % Sodium Chloride Flush 3 Ml Syringe) 3 ml IVFLUSH QSHIFT COUNTS INCLUDE 234 BEDS AT THE [facility] Last Admin: 05/31/21 15:10 Dose: Not Given Documented by: Home Medications Medication Instructions Recorded Confirmed Last Taken Type albuterol sulfate 2.5 mg INHALATION Q4-6H PRN 07/04/20 05/31/21 Unknown History prazosin 2 mg capsule 1 cap PO BEDTIME 04/17/21 05/31/21 Unknown History albuterol sulfate 90 mcg/actuation 2 puff INHALATION QID PRN 05/06/21 05/31/21 Unknown History aerosol inhaler (ProAir HFA) cyclobenzaprine 5 mg tablet 2.5 tab PO TID PRN 05/31/21 05/31/21 Unknown History Physical Exam Vital Signs: Vital Signs: Last Vital Signs Temp 97.8 F 05/31/21 11:38 Pulse 107 H 05/31/21 16:43 Resp 17 05/31/21 16:43 BP 122/87 05/31/21 16:43 Pulse Ox 94 05/31/21 16:43 Body Mass Index 21.6 It clearly agitated and in significant respiratory distress with accessory muscle use and marked diaphragmatic effort for prolonged expiratory work Diminished bilateral breath sounds but significant bilateral wheezing Cardiac exam with bedside echo showing normal left ventricular size and function with no primary valve or pericardial disease Skin intact with no areas of cellulitis no livedo no acrocyanosis Results Labs CBC & Chem 7: 06/01/21 05:19 06/01/21 05:19 Labs: Short CBC 05/31/21 Range/Units 11:21 WBC 11.1 H (4.8-10.8) X10*3/uL Hgb 12.7 (12.0-16.0) g/dl Hct 39.2 D (37-47) % Plt Count 291 (160-400) X10*3/uL BMP 05/31/21 11:21 Sodium 138 Potassium 4.8 Chloride 104 Carbon Dioxide 27 BUN 9 Creatinine 0.64 Calcium 9.5 Liver Function 05/31/21 Range/Units 11:21 Total Bilirubin < 0.2 (0.0-1.0) mg/dL Direct Bilirubin < 0.2 (0.0-0.5) mg/dL AST 26 D (5-31) U/L ALT 15 (0-31) U/L Alkaline Phosphatase 91 (39-117) U/L Albumin 4.3 (3.5-5.0) g/dL Assessment and Plan (1) Post traumatic stress disorder (PTSD): Status: Acute (2) SOB (shortness of breath): Status: Acute (3) Acute respiratory failure with hypoxia: Status: Acute (4) Asthma with status asthmaticus: Qualifiers: Asthma persistence: persistent Asthma severity: severe Qualified Code(s): J45.52 - Severe persistent asthma with status asthmaticus Status: Acute (5) Hypoxia: Status: Acute (6) Opiate withdrawal: Status: Acute (7) Crohn's disease: Status: Acute (8) Hx of substance abuse: Status: Acute (9) Hypersensitivity pneumonitis: Status: Acute Okay to transfer to the floor as she is no longer BiPAP dependent the status picture is now remitted she will probably need to be on a long-acting combined bronchodilator as well as an inhaled steroid for her particular entity and meanwhile her IgE level is pending but 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
[2021-05-31 17:31] LABS: Amphetamine Screen Urine Not Detected (Not Detect); Barbiturates, Urine Not Detected (Not Detect); Benzodiazepines Screen Urine POSITIVE (Not Detect); Cannabinoid Screen Urine Not Detected (Not Detect); Cocaine Screen Urine POSITIVE (Not Detect); Fentanyl, urine POSITIVE (Not Detect); Opiate Screen Urine POSITIVE (Not Detect); Phencyclidine Screen Urine Not Detected (Not Detect)
--- NOTE | 2021-05-31 18:32 | PC.NURSE ---
Pt is resting comfortably on the bipap and respiratory status has appeared to improve. However, pt is refusing any repeat labs until she sees her boyfriend. However, due to past behavior and the history of substance abuse, providers and security are hesitant to allow him to see her. Could revisit idea of having supervised visit at some point
[2021-05-31 21:34] LABS: VBG Base Excess 4.5 mmol/L; VBG HCO3 29 mmol/L (22-26); VBG pCO2 43 mmHg; VBG pH 7.43 (7.32-7.43); VBG pO2 45 mmHg
[2021-05-31] MEDS: Morphine Sulfate 4 MG/ML CARTRIDGE 2 MG IVPUSH (22:20)
[2021-05-31] MEDS: Cariprazine HCl 1.5 MG CAPSULE PO (22:20)
[2021-05-31] MEDS: 0.9 % Sodium Chloride Flush 3 ML SYRINGE IVFLUSH (22:21)
[2021-05-31] MEDS: Prazosin HCL 1 MG CAPSULE 2 MG PO (22:36)
--- NOTE | 2021-05-31 23:06 | PC.NURSE ---
Shift eval - admitted patient to ICU 254 at approx 2100. Patient on bipap when arrived, 14/, 25% - tolerating. Insp & exp wheezing throughout. Patient c/o anxiety r/t mask - asked to take off - Dennis SHORT aware. Order to redraw VBG's and as long as stable, can stay off bipap. Bipap removed and transferred on to nasal cannula 2 liters. Patient tolerating - but still dyspnea with any exertion. Patient up to commode - tolerated activity. Patient main concern is withdrawl symptoms to come - active cocaine & heroin use, last use prior to coming into hospital. Discussed withdrawal issue with Dennis SHORT - retail operations specialist, Stephanie Denise consulted already by Dr Musa - in the meantime, one time dose ativen ordered as well as morphine ordered for breathing issues. Night time prazosin PRN med given with morphine & plan to give ativan once done with snack and ready for bed.
[2021-05-31 23:07] LABS: Venous Blood Gas Refer to POC result
[2021-05-31] MEDS: LORazepam 2 MG/ML VIAL 1 MG IVPUSH (23:45)
[2021-06-01] VITALS (15 sets, daily range): BP systolic 95–129; BP diastolic 53–79; PULSE 90–116; RESP 12–28; TEMP 36–36.6; O2SAT 90–96; BMI 25.7
[2021-06-01] MEDS: Morphine Sulfate 4 MG/ML CARTRIDGE 2 MG IVPUSH ×3 (02:12→10:43)
[2021-06-01 05:38] LABS: Imm Gran Abs Auto 0.01 X10*3/uL (0.00-0.03); Imm Gran Pct Auto 0.2 % (0.0-0.4); MANUAL DIFF FLAG SCAN; Mean Corpuscular Volume 84.5 fL (80-98); PLT CLUMP 1; SCAN SMEAR FLAG 1
[2021-06-01 05:40] LABS: Eosinophils Percent Auto 0.6 % (0-4); Hematocrit 36.5 % (37-47); Hemoglobin 11.9 g/dl (12.0-16.0); Lymphocytes Absolute Auto 0.8 X10*3/uL (1.2-4.9); Lymphocytes Percent Auto 14.5 % (20-40); Mean Corpuscular HGB Conc 32.6 g/dl (31.0-35.0); Mean Corpuscular Hemoglobin 27.5 pg (27.0-33.0); Mean Platelet Volume 11.6 fL (9.4-12.3); Monocytes Absolute Auto 0.2 X10*3/uL (0.1-1.2); Monocytes Percent Auto 3.1 % (2-11); Neutrophils Absolute Auto 4.3 X10*3/uL (2.0-8.3); Neutrophils Percent Auto 81.6 % (45-73); Red Blood Count 4.32 X10*6/uL (4.20-5.50); Red Cell Distribution Width 13.1 % (11.0-16.0); White Blood Count 5.2 X10*3/uL (4.8-10.8)
[2021-06-01] MEDS: Omeprazole 40 MG CAPSULE.DR PO (05:49)
[2021-06-01] MEDS: methylPREDNISolone Sod Succ 40 MG/ML VIAL IVPUSH ×2 (05:50→10:43)
[2021-06-01 05:52] LABS: Alanine Aminotransferase 14 U/L (0-31); Albumin Level 4.2 g/dL (3.5-5.0); Alkaline Phosphatase 83 U/L (39-117); Anion Gap 13 (12-20); Aspartate Amino Transferase 23 U/L (5-31); Bilirubin Total 0.3 mg/dL (0.0-1.0); Blood Urea Nitrogen 13 mg/dL (9-16); Calcium 9.8 mg/dL (8.4-10.2); Carbon Dioxide 25 mmol/L (22-29); Chloride 103 mmol/L (96-108); Creatinine Clr Calc Pharmacy 144.2; Estimated Glomerular Filt Rate > 60; Glucose Random 124 mg/dL (60-115); Magnesium 2.4 mg/dL (1.6-2.6); Phosphorus 3.8 mg/dL (2.7-4.5); Potassium 4.6 mmol/L (3.3-5.1); Sodium 136 mmol/L (135-145); Total Protein 6.9 g/dL (6.5-8.0)
[2021-06-01 06:00] LABS: Platelet Count 151 X10*3/uL (160-400); SLIDE REVIEW VERIFIED
[2021-06-01] MEDS: 0.9 % Sodium Chloride Flush 3 ML SYRINGE IVFLUSH ×2 (07:10→10:44)
[2021-06-01] MEDS: Nicotine 14 MG PATCH.TD24 TRANSDERMA (07:13)
--- NOTE | 2021-06-01 07:14 | PM.CCPN ---
Subjective Subjective Date of Service: 06/01/21 Interval History: 25-year-old female polysubstance abuser this time including snorted heroin other opiates cocaine as well who presents who presented with status asthmaticus and acute hypoxemic respiratory failure was initially BiPAP bud dependent for severe airway reactivity and was given large bolus of steroids today much improved no longer BiPAP dependent There is a pending a substance abuse consult enough for possible withdrawal program Critical Care Time (minutes): 35 Physical Exam Vital Signs: Vital Signs: Last Vital Signs Temp 97.5 F 06/01/21 04:00 Pulse 116 H 06/01/21 07:00 Resp 19 06/01/21 07:00 BP 99/69 06/01/21 07:00 Pulse Ox 90 L 06/01/21 07:00 Body Mass Index 25.7 Awake and alert and nonfocal neurologically Wheezing much diminished Cardiac exam no gallops no murmurs and good bilateral carotid upstrokes Skin intact Abdomen benign Objective Data Labs CBC & Chem 7: 06/01/21 05:19 06/01/21 05:19 Labs: Laboratory Results - last 24 hr 05/31/21 05/31/21 05/31/21 11:21 11:21 11:22 WBC 11.1 H RBC 4.54 D Hgb 12.7 Hct 39.2 D MCV 86.3 MCH 28.0 MCHC 32.4 RDW 13.4 Plt Count 291 MPV 10.2 Immature Gran % (Auto) 0.3 Neut % (Auto) 64.7 Lymph % (Auto) 13.7 L [place] % (Auto) 6.0 Eos % (Auto) 14.9 H Baso % (Auto) 0.4 Lymph # (Auto) 1.5 [place] # (Auto) 0.7 Eos # (Auto) 1.7 H Baso # (Auto) 0.0 Abs Immat Gran (auto) 0.03 Absolute Neuts (auto) 7.2 Absolute Nucleated RBC 0.000 Nucleated RBC % (auto) 0.0 Smear Tech's Comments VBG pH VBG pCO2 VBG pO2 VBG HCO3 VBG O2 Saturation VBG Base Excess Sodium 138 Potassium 4.8 Chloride 104 Carbon Dioxide 27 Anion Gap 12 BUN 9 Creatinine 0.64 Estim Creat Clear Calc 123.0 Estimated GFR > 60 Random Glucose 121 H Lactic Acid Calcium 9.5 Phosphorus Magnesium 2.2 Total Bilirubin < 0.2 Direct Bilirubin < 0.2 AST 26 D ALT 15 Alkaline Phosphatase 91 Total Protein 7.3 Albumin 4.3 Beta HCG, Quant Urine Opiates Screen Urine Fentanyl Screen Ur Barbiturates Screen Ur Phencyclidine Scrn Ur Amphetamines Screen U Benzodiazepines Scrn Urine Cocaine Screen U Marijuana (THC) Screen COVID-19 (DAVID) Negative COVID-19 Clin Com See Note 05/31/21 05/31/21 05/31/21 11:26 11:30 11:30 WBC RBC Hgb Hct MCV MCH MCHC RDW Plt Count MPV Immature Gran % (Auto) Neut % (Auto) Lymph % (Auto) [place] % (Auto) Eos % (Auto) Baso % (Auto) Lymph # (Auto) [place] # (Auto) Eos # (Auto) Baso # (Auto) Abs Immat Gran (auto) Absolute Neuts (auto) Absolute Nucleated RBC Nucleated RBC % (auto) Smear Tech's Comments VBG pH 7.43 VBG pCO2 43 VBG pO2 141 VBG HCO3 29 H VBG O2 Saturation 99.0 VBG Base Excess 4.4 Sodium Potassium Chloride Carbon Dioxide Anion Gap BUN Creatinine Estim Creat Clear Calc Estimated GFR Random Glucose Lactic Acid 0.9 Calcium Phosphorus Magnesium Total Bilirubin Direct Bilirubin AST ALT Alkaline Phosphatase Total Protein Albumin Beta HCG, Quant < 2 Urine Opiates Screen Urine Fentanyl Screen Ur Barbiturates Screen Ur Phencyclidine Scrn Ur Amphetamines Screen U Benzodiazepines Scrn Urine Cocaine Screen U Marijuana (THC) Screen COVID-19 (DAVID) COVID-19 Clin Com 05/31/21 05/31/21 06/01/21 17:13 21:29 05:19 WBC 5.2 RBC 4.32 Hgb 11.9 L Hct 36.5 L MCV 84.5 MCH 27.5 MCHC 32.6 RDW 13.1 Plt Count 151 L D MPV 11.6 Immature Gran % (Auto) 0.2 Neut % (Auto) 81.6 H Lymph % (Auto) 14.5 L [place] % (Auto) 3.1 Eos % (Auto) 0.6 Baso % (Auto) 0.0 Lymph # (Auto) 0.8 L [place] # (Auto) 0.2 Eos # (Auto) 0.0 Baso # (Auto) 0.0 Abs Immat Gran (auto) 0.01 Absolute Neuts (auto) 4.3 Absolute Nucleated RBC 0.000 Nucleated RBC % (auto) 0.0 Smear Tech's Comments VERIFIED VBG pH 7.43 VBG pCO2 43 VBG pO2 45 VBG HCO3 29 H VBG O2 Saturation 71.0 VBG Base Excess 4.5 Sodium Potassium Chloride Carbon Dioxide Anion Gap BUN Creatinine Estim Creat Clear Calc Estimated GFR Random Glucose Lactic Acid Calcium Phosphorus Magnesium Total Bilirubin Direct Bilirubin AST ALT Alkaline Phosphatase Total Protein Albumin Beta HCG, Quant Urine Opiates Screen POSITIVE H Urine Fentanyl Screen POSITIVE H Ur Barbiturates Screen Not Detected Ur Phencyclidine Scrn Not Detected Ur Amphetamines Screen Not Detected U Benzodiazepines Scrn POSITIVE H Urine Cocaine Screen POSITIVE H U Marijuana (THC) Screen Not Detected COVID-19 (DAVID) COVID-19 [employer] 06/01/21 05:19 WBC RBC Hgb Hct MCV MCH MCHC RDW Plt Count MPV Immature Gran % (Auto) Neut % (Auto) Lymph % (Auto) [place] % (Auto) Eos % (Auto) Baso % (Auto) Lymph # (Auto) [place] # (Auto) Eos # (Auto) Baso # (Auto) Abs Immat Gran (auto) Absolute Neuts (auto) Absolute Nucleated RBC Nucleated RBC % (auto) Smear Tech's Comments VBG pH VBG pCO2 VBG pO2 VBG HCO3 VBG O2 Saturation VBG Base Excess Sodium 136 Potassium 4.6 Chloride 103 Carbon Dioxide 25 Anion Gap 13 BUN 13 Creatinine 0.60 Estim Creat Clear Calc 144.2 Estimated GFR > 60 Random Glucose 124 H Lactic Acid Calcium 9.8 Phosphorus 3.8 Magnesium 2.4 Total Bilirubin 0.3 Direct Bilirubin AST 23 ALT 14 Alkaline Phosphatase 83 Total Protein 6.9 Albumin 4.2 Beta HCG, Quant Urine Opiates Screen Urine Fentanyl Screen Ur Barbiturates Screen Ur Phencyclidine Scrn Ur Amphetamines Screen U Benzodiazepines Scrn Urine Cocaine Screen U Marijuana (THC) Screen COVID-19 (DAVID) COVID-19 [employer] Quality Stroke Does the patient have a stroke diagnosis?: No VTE Prior VTE?: No VTE Risk Level:: Medical - moderate - high VTE Device Contraindication: Treatment Not Indicated VTE Drug Contraindication: N/A - Med Ordered Progress Note: A&P Assessment and plan (1) Hypersensitivity pneumonitis: Status: Acute (2) Post traumatic stress disorder (PTSD): Status: Acute (3) SOB (shortness of breath): Status: Acute (4) Acute respiratory failure with hypoxia: Status: Acute (5) Asthma with status asthmaticus: Status: Acute (6) Hypoxia: Status: Acute (7) Hx of substance abuse: Status: Acute (8) Crohn's disease: Status: Acute (9) Opiate withdrawal: Status: Acute Assessment and Plan: Transfer to the floor and start her on long-acting bronchodilators and inhaled steroids as well
[2021-06-01 07:53] LABS: VBG Base Excess 2.2 mmol/L; VBG HCO3 25 mmol/L (22-26); VBG pCO2 34 mmHg; VBG pH 7.46 (7.32-7.43); VBG pO2 67 mmHg
[2021-06-01] MEDS: Albuterol/Iprat 2.5/0.5MG 3 ML AMPUL.NEB INHALE (08:13)
--- NOTE | 2021-06-01 08:15 | ECG_ITS ---
Test Reason : SOB Blood Pressure : / mmHG Vent. Rate : 103 BPM Atrial Rate : 103 BPM P-R Int : 144 ms QRS Dur : 070 ms QT Int : 336 ms P-R-T Axes : 081 074 085 degrees QTc Int : 440 ms Sinus tachycardia Right atrial enlargement RSR' or QR pattern in V1 suggests right ventricular conduction delay Borderline ECG When compared with ECG of 06-MAY-2021 20:01, No significant change was found Referred By: Maria C Laureano Electronically Signed By:DOMINIQUE LERMA MD
[2021-06-01 08:35] LABS: Venous Blood Gas Refer to POC result
--- NOTE | 2021-06-01 10:31 | PC.NURSE ---
Addendum entered by Naomi Chacon RN 06/01/21 10:51: SCHEDULED METHADONE ADMINISTERED BY THIS RN. Original Note: TRANSFERRED TO MED SURG VIA BED AT 1000. TELESITTER PLACED BEDSIDE PER NURSING BOX TRUCK OWNER OPERATOR. ASSISTED TO BR WITH 02 TANK. PATIENT NOTED TO HAVE INCREASED WOB. 02 INCREASED TO 4L NC AND PATIENT STATES MUCH BETTER . NEW RN NOTIFIED OF 02 CHANGES.
[2021-06-01] MEDS: methADONE HCl 20 MG/2 ML ORAL.CONC PO (10:44)
--- NOTE | 2021-06-01 13:48 | PC.NURSE ---
At around 1300 suspicious activity noted by ROMY Felix,patient in the bathroom,sitting on the toilet with pants on,appears like is using a needle,? injecting something .Requesting not to be disturbed.This RN in patients room to evaluate the situation. Security called,patient is refusing to be searched.States it is not fair to be treated that way and wants to leave AMA. Danielle GONZALEZ and nursing slot shift supervisor at bedside trying to encourage patient to stay but she has made her decision to leave. Alert and oriented,aware of risks of leaving,IV out.AMA signed,playground monitor removed.Left at 1324 accompanied by security trainer and her boyfriend.
--- NOTE | 2021-06-01 13:49 | PM.DS ---
DS: Providers Provider Date of Service: 06/01/21 Date of admission: 05/31/21 14:52 Primary care physician: SINA Pugh Consults: 05/31/21 14:52 Addiction Medicine Routine Consulting Provider: Stephanie Murrieta Reason for consultation: interested in methadone 05/31/21 16:34 Consult to Critical Care Routine Consulting Provider: Vanessa Bueno Reason for consultation: level of care eval -- status asthmaticus Attending physician on discharge: Casey Musa Discharging clinician: Danielle Valdez DS: Diagnosis Discharge Diagnosis (1) Acute respiratory failure with hypoxia: Status: Acute (2) Hypersensitivity pneumonitis: Status: Acute (3) Post traumatic stress disorder (PTSD): Status: Acute (4) SOB (shortness of breath): Status: Acute (5) Asthma with status asthmaticus: Status: Acute (6) Hypoxia: Status: Acute (7) Hx of substance abuse: Status: Acute (8) Crohn's disease: Status: Acute (9) Opiate withdrawal: Status: Acute DS: Summary Hospital Course Hospital Course: From H&P on day of admission This is a 25 yo F with a PMH of asthma, chronic opiate use, PTSD who presents to the hospital with complaints of shortness of breath with associated wheezing, non-productive cough, no fevers or chills for the last 2-3 days. The patient endorses daily heroine use (snorts) with last use being on the day of arrival. She reports that she used her inhalers at home without much help and so she presented to the hospital. She denies any known sick COVID 19 contacts. Upon arrival to the ED, the patient was found to be in respiratory distress with diffuse wheezing. She was initially given updrafts and began to appear as if she was tiring. She was falling asleep, anxious and grunting. She was promptly placed on BIPAP for impending respiratory failure. After several hours on BIPAP, she began to improve and removed the mask herself. Her respiratory status improved dramatically, but she still had diffuse wheezing and was requiring 4L NC to keep saturations above 90. Admission was requested for further treatment. Patient is seen in the ED around 245-3pm. She reports that she is having trouble breathing and also feels very anxious. She reports minimal improvement since arrival. She reports that she has been using heroin (snorting)? since she stopped her suboxone about 1 month ago. While awaiting in the ED, addiction medicine consult was sought, but the patient refused this initially. After discussing with her again -- at this time, she is willing to speak with someone. Patient was ultimately admitted to the ICU for BiPAP. She was started on IV steroids and bronchodilators. She was stepped down from the ICU the morning of 06/01/2021. This afternoon the patient decided to leave against medical advice. She has active wheezing and was recommended for her to stay in the hospital for continued care. She declined stay in the hospital. She understands that breathing will likely get worse without medical care which may result in her . She awake, alert, oriented and understands and despite this I was not able to convince her to stay. I will be sending a course of prednisone and a refill for her nebulizer. She is encouraged to return to the emergency department, seek medical care if her breathing becomes worse. She is encouraged [facility]. She is encouraged to completely abstain from using any illicit substances. Time Spent with Patient Time attestation: Total time spent providing and/or coordinating discharge services: Discharge coordination time: Greater than 30 minutes Quality: Stroke Does the patient have a stroke diagnosis?: No Physical Exam Vital Signs: Vital Signs: Last Vital Signs Temp 96.8 F 06/01/21 11:44 Pulse 99 06/01/21 11:44 Resp 18 06/01/21 11:44 BP 129/79 06/01/21 11:44 Pulse Ox 96 06/01/21 11:44 Body Mass Index 25.7 Const: Nutritional Appearance: well nourished Orientation/consciousness: patient oriented x3 HENMT: Head: Yes normocephalic and Yes atraumatic Eyes: Sclerae: sclerae normal Resp: Other: able to speak in full sentences; diffuse wheezing Cardio: Rate: regular rate Rhythm: regular rhythm GI: Palpation (GI): Soft to palpation and nontender Neuro: General: patient oriented x3 Cranial nerves: Yes CN's II-XII intact bilaterally and Yes Bilaterally intact EOM present DS: Data Data Completed and Pending Labs on day of discharge: Laboratory Results - last 24 hr 05/31/21 05/31/21 06/01/21 17:13 21:29 05:18 WBC RBC Hgb Hct MCV MCH MCHC RDW Plt Count MPV Immature Gran % (Auto) Neut % (Auto) Lymph % (Auto) [place] % (Auto) Eos % (Auto) Baso % (Auto) Lymph # (Auto) [place] # (Auto) Eos # (Auto) Baso # (Auto) Abs Immat Gran (auto) Absolute Neuts (auto) Absolute Nucleated RBC Nucleated RBC % (auto) Smear Tech's Comments VBG pH 7.43 7.46 H VBG pCO2 43 34 VBG pO2 45 67 VBG HCO3 29 H 25 VBG O2 Saturation 71.0 90.0 VBG Base Excess 4.5 2.2 Sodium Potassium Chloride Carbon Dioxide Anion Gap BUN Creatinine Estim Creat Clear Calc Estimated GFR Random Glucose Calcium Phosphorus Magnesium Total Bilirubin AST ALT Alkaline Phosphatase Total Protein Albumin Urine Opiates Screen POSITIVE H Urine Fentanyl Screen POSITIVE H Ur Barbiturates Screen Not Detected Ur Phencyclidine Scrn Not Detected Ur Amphetamines Screen Not Detected U Benzodiazepines Scrn POSITIVE H Urine Cocaine Screen POSITIVE H U Marijuana (THC) Screen Not Detected 06/01/21 06/01/21 05:19 05:19 WBC 5.2 RBC 4.32 Hgb 11.9 L Hct 36.5 L MCV 84.5 MCH 27.5 MCHC 32.6 RDW 13.1 Plt Count 151 L D MPV 11.6 Immature Gran % (Auto) 0.2 Neut % (Auto) 81.6 H Lymph % (Auto) 14.5 L [place] % (Auto) 3.1 Eos % (Auto) 0.6 Baso % (Auto) 0.0 Lymph # (Auto) 0.8 L [place] # (Auto) 0.2 Eos # (Auto) 0.0 Baso # (Auto) 0.0 Abs Immat Gran (auto) 0.01 Absolute Neuts (auto) 4.3 Absolute Nucleated RBC 0.000 Nucleated RBC % (auto) 0.0 Smear Tech's Comments VERIFIED VBG pH VBG pCO2 VBG pO2 VBG HCO3 VBG O2 Saturation VBG Base Excess Sodium 136 Potassium 4.6 Chloride 103 Carbon Dioxide 25 Anion Gap 13 BUN 13 Creatinine 0.60 Estim Creat Clear Calc 144.2 Estimated GFR > 60 Random Glucose 124 H Calcium 9.8 Phosphorus 3.8 Magnesium 2.4 Total Bilirubin 0.3 AST 23 ALT 14 Alkaline Phosphatase 83 Total Protein 6.9 Albumin 4.2 Urine Opiates Screen Urine Fentanyl Screen Ur Barbiturates Screen Ur Phencyclidine Scrn Ur Amphetamines Screen U Benzodiazepines Scrn Urine Cocaine Screen U Marijuana (THC) Screen Discharge Plan Discharge Patient Disposition: Left Against Medical Advice Discharge Diagnosis: Acute asthma exacerbation Referrals: Vincent Hayes FNP-BC [Primary Care Provider] - 1 Week Stephanie Murrieta CNP [Nurse Practitioner] - 1 Week Discharge Medications: New prednisone 20 mg tablet 40 mg PO DAILY 5 Days Qty: 10 RF: 0 albuterol sulfate 2.5 mg /3 mL (0.083 %) solution for nebulization 2.5 mg inhalation Q4-6H PRN (Reason: shortness of breath or wheezing) Qty: 75 RF: 0 Continued albuterol sulfate 2.5 mg /3 mL (0.083 %) solution for nebulization 2.5 mg inhalation Q4-6H PRN (Reason: Wheezing) RF: 0 nicotine 14 mg/24 hr patch 24 hour 1 patch transdermal DAILY Qty: 14 RF: 0 omeprazole 40 mg capsule,delayed release(DR/EC) 40 mg PO .morning 30 Days Qty: 30 RF: 2 gabapentin 600 mg tablet 600 mg PO TID 30 Days Qty: 90 RF: 0 Vraylar 1.5 mg capsule 1.5 mg PO BEDTIME 30 Days Qty: 30 RF: 0 doxepin 10 mg capsule 10 mg PO BEDTIME 30 Days Qty: 30 RF: 0 albuterol sulfate [ProAir HFA] 90 mcg/actuation Hfa Aerosol Inhaler 2 puff INHALATION QID PRN (Reason: Dyspnea) RF: 0 prazosin 2 mg capsule 1 cap PO BEDTIME RF: 0 cyclobenzaprine 5 mg tablet 2.5 tab PO TID PRN (Reason: Muscle Spasm) RF: 0 Discharge Orders: Discharge Order (Routine); Ordered 06/01/21 Ordered By: Danielle Valdez Activity on Discharge: As tolerated Care Plan Goals: left AMA Health Concerns: asthma pneumonitis hypoxia substance use Plan of Treatment: Prednisone was sent to the pharmacy, please take entire course, use albuterol q4-6 hrs as needed for shortness of breath or wheezing return to ED/seek medical care if shortness of breath worsens. Call to schedule follow-up appointment with PCP Recommend to avoid all substance, follow up in the comprehensive [facility] Assessment: left BELEN
--- NOTE | 2021-06-01 13:54 | HO.ADDICT_ITS ---
History of Present Illness Date of Service: 06/01/2021 Chief Complaint: acute respiratory failure with hypoxia Reason for Consult: OUD requesting methadone Requesting physician: Casey Musa Discussed with referring provider: Yes Sources of Information: patient interviewed and chart reviewed HPI Narrative: Patient is a 25 year old female with several chronic medical and beahvioral health dx including OUD, PTSD and asthma. Medically admitted with asthma eaxcerbation and pneumonia. Chart reviewed in patient reported using heroin and fentanyl intranasal. Patient seen in rrom 358. Awake, alert, wheezing and ill appearing. Male in the room, who patient introduced as her BF, Roberto, present during visit. Full interview not completed as patient had a visitor, and she was still having difficulty with shortness of breath. Patient had given 20 mg of methadone approximately an hour prior to being seen by this web content writer. Plan was to follow-up with patient and order additional 5-10 mg of methadone is patient felt that she needed it. However, patient self initiated discharge and left prior to being seen again by this web content writer or the recovery team. Unfortunately this is not unusual for maddie to leave prior to being fully medically cleared, especially when she is actively using substances. Review of Systems Constitutional: Reports body ache(s), Reports fatigue, Reports malaise and Reports weakness Cardiovascular: Reports dyspnea Respiratory: Reports dyspnea and Reports wheezing Reports weakness Psychiatric: Reports anxiety Endocrine: Reports fatigue Allergic/Immunologic: Reports wheezing Diagnostics Vital Signs (24Hr): Vital Signs - 24 hr 05/31/21 14:49 05/31/21 15:16 05/31/21 15:43 Temperature Pulse Rate 103 H 94 89 Respiratory Rate 29 H 18 Blood Pressure 135/100 H 141/95 H Pulse Oximetry 95 96 05/31/21 16:01 05/31/21 16:43 05/31/21 19:35 Temperature Pulse Rate 107 H 96 Respiratory Rate 19 17 Blood Pressure 122/87 Pulse Oximetry 94 05/31/21 19:36 05/31/21 21:03 05/31/21 21:05 Temperature 98.2 F Pulse Rate 98 98 Respiratory Rate 14 13 18 Blood Pressure 137/79 137/79 Pulse Oximetry 95 97 05/31/21 21:24 05/31/21 21:50 05/31/21 22:00 Temperature Pulse Rate 98 98 98 Respiratory Rate 15 21 H Blood Pressure 138/95 H Pulse Oximetry 95 94 05/31/21 22:20 05/31/21 22:36 05/31/21 23:00 Temperature Pulse Rate 100 99 Respiratory Rate 23 H 16 Blood Pressure 138/95 H 120/77 Pulse Oximetry 93 05/31/21 23:01 06/01/21 00:00 06/01/21 01:00 Temperature 97.4 F Pulse Rate 105 H 110 H Respiratory Rate 21 H 16 18 Blood Pressure 106/61 107/62 Pulse Oximetry 96 94 06/01/21 01:58 06/01/21 03:00 06/01/21 04:00 Temperature 97.5 F Pulse Rate 100 98 97 Respiratory Rate 13 15 19 Blood Pressure 107/62 97/61 95/53 L Pulse Oximetry 92 95 90 L 06/01/21 05:00 06/01/21 05:54 06/01/21 07:00 Temperature Pulse Rate 97 97 116 H Respiratory Rate 16 18 19 Blood Pressure 108/60 108/60 99/69 Pulse Oximetry 92 95 90 L 06/01/21 07:10 06/01/21 07:26 06/01/21 08:00 Temperature 97.9 F Pulse Rate 116 H Respiratory Rate 22 H 19 Blood Pressure 115/76 Pulse Oximetry 93 06/01/21 08:13 06/01/21 10:43 06/01/21 11:44 Temperature 96.8 F Pulse Rate 110 H 99 Respiratory Rate 12 28 H 18 Blood Pressure 129/79 Pulse Oximetry 96 Body Mass Index 25.7 Labs Results: 06/01/21 05:19 06/01/21 05:19 Labs: Laboratory Results - last 48 hr 05/31/21 05/31/21 05/31/21 11:21 11:21 11:22 WBC 11.1 H RBC 4.54 D Hgb 12.7 Hct 39.2 D MCV 86.3 MCH 28.0 MCHC 32.4 RDW 13.4 Plt Count 291 MPV 10.2 Immature Gran % (Auto) 0.3 Neut % (Auto) 64.7 Lymph % (Auto) 13.7 L [place] % (Auto) 6.0 Eos % (Auto) 14.9 H Baso % (Auto) 0.4 Lymph # (Auto) 1.5 [place] # (Auto) 0.7 Eos # (Auto) 1.7 H Baso # (Auto) 0.0 Abs Immat Gran (auto) 0.03 Absolute Neuts (auto) 7.2 Absolute Nucleated RBC 0.000 Nucleated RBC % (auto) 0.0 Smear Tech's Comments VBG pH VBG pCO2 VBG pO2 VBG HCO3 VBG O2 Saturation VBG Base Excess Sodium 138 Potassium 4.8 Chloride 104 Carbon Dioxide 27 Anion Gap 12 BUN 9 Creatinine 0.64 Estim Creat Clear Calc 123.0 Estimated GFR > 60 Random Glucose 121 H Lactic Acid Calcium 9.5 Phosphorus Magnesium 2.2 Total Bilirubin < 0.2 Direct Bilirubin < 0.2 AST 26 D ALT 15 Alkaline Phosphatase 91 Total Protein 7.3 Albumin 4.3 Beta HCG, Quant Urine Opiates Screen Urine Fentanyl Screen Ur Barbiturates Screen Ur Phencyclidine Scrn Ur Amphetamines Screen U Benzodiazepines Scrn Urine Cocaine Screen U Marijuana (THC) Screen COVID-19 (DAVID) Negative COVID-[facility] See Note 05/31/21 05/31/21 05/31/21 11:26 11:30 11:30 WBC RBC Hgb Hct MCV MCH MCHC RDW Plt Count MPV Immature Gran % (Auto) Neut % (Auto) Lymph % (Auto) [place] % (Auto) Eos % (Auto) Baso % (Auto) Lymph # (Auto) [place] # (Auto) Eos # (Auto) Baso # (Auto) Abs Immat Gran (auto) Absolute Neuts (auto) Absolute Nucleated RBC Nucleated RBC % (auto) Smear Tech's Comments VBG pH 7.43 VBG pCO2 43 VBG pO2 141 VBG HCO3 29 H VBG O2 Saturation 99.0 VBG Base Excess 4.4 Sodium Potassium Chloride Carbon Dioxide Anion Gap BUN Creatinine Estim Creat Clear Calc Estimated GFR Random Glucose Lactic Acid 0.9 Calcium Phosphorus Magnesium Total Bilirubin Direct Bilirubin AST ALT Alkaline Phosphatase Total Protein Albumin Beta HCG, Quant < 2 Urine Opiates Screen Urine Fentanyl Screen Ur Barbiturates Screen Ur Phencyclidine Scrn Ur Amphetamines Screen U Benzodiazepines Scrn Urine Cocaine Screen U Marijuana (THC) Screen COVID-19 (DAVID) COVID-[facility] 05/31/21 05/31/21 06/01/21 17:13 21:29 05:18 WBC RBC Hgb Hct MCV MCH MCHC RDW Plt Count MPV Immature Gran % (Auto) Neut % (Auto) Lymph % (Auto) [place] % (Auto) Eos % (Auto) Baso % (Auto) Lymph # (Auto) [place] # (Auto) Eos # (Auto) Baso # (Auto) Abs Immat Gran (auto) Absolute Neuts (auto) Absolute Nucleated RBC Nucleated RBC % (auto) Smear Tech's Comments VBG pH 7.43 7.46 H VBG pCO2 43 34 VBG pO2 45 67 VBG HCO3 29 H 25 VBG O2 Saturation 71.0 90.0 VBG Base Excess 4.5 2.2 Sodium Potassium Chloride Carbon Dioxide Anion Gap BUN Creatinine Estim Creat Clear Calc Estimated GFR Random Glucose Lactic Acid Calcium Phosphorus Magnesium Total Bilirubin Direct Bilirubin AST ALT Alkaline Phosphatase Total Protein Albumin Beta HCG, Quant Urine Opiates Screen POSITIVE H Urine Fentanyl Screen POSITIVE H Ur Barbiturates Screen Not Detected Ur Phencyclidine Scrn Not Detected Ur Amphetamines Screen Not Detected U Benzodiazepines Scrn POSITIVE H Urine Cocaine Screen POSITIVE H U Marijuana (THC) Screen Not Detected COVID-19 (DAVID) COVID-19 Clin Com 06/01/21 06/01/21 05:19 05:19 WBC 5.2 RBC 4.32 Hgb 11.9 L Hct 36.5 L MCV 84.5 MCH 27.5 MCHC 32.6 RDW 13.1 Plt Count 151 L D MPV 11.6 Immature Gran % (Auto) 0.2 Neut % (Auto) 81.6 H Lymph % (Auto) 14.5 L [place] % (Auto) 3.1 Eos % (Auto) 0.6 Baso % (Auto) 0.0 Lymph # (Auto) 0.8 L [place] # (Auto) 0.2 Eos # (Auto) 0.0 Baso # (Auto) 0.0 Abs Immat Gran (auto) 0.01 Absolute Neuts (auto) 4.3 Absolute Nucleated RBC 0.000 Nucleated RBC % (auto) 0.0 Smear Tech's Comments VERIFIED VBG pH VBG pCO2 VBG pO2 VBG HCO3 VBG O2 Saturation VBG Base Excess Sodium 136 Potassium 4.6 Chloride 103 Carbon Dioxide 25 Anion Gap 13 BUN 13 Creatinine 0.60 Estim Creat Clear Calc 144.2 Estimated GFR > 60 Random Glucose 124 H Lactic Acid Calcium 9.8 Phosphorus 3.8 Magnesium 2.4 Total Bilirubin 0.3 Direct Bilirubin AST 23 ALT 14 Alkaline Phosphatase 83 Total Protein 6.9 Albumin 4.2 Beta HCG, Quant Urine Opiates Screen Urine Fentanyl Screen Ur Barbiturates Screen Ur Phencyclidine Scrn Ur Amphetamines Screen U Benzodiazepines Scrn Urine Cocaine Screen U Marijuana (THC) Screen COVID-19 (DAVID) COVID-19 Clin Com Imaging Radiology Impressions: ITS Impressions Chest X-Ray 05/31/21 11:12 IMPRESSION: Unremarkable chest exam. Chest CT 05/31/21 16:28 IMPRESSION: Mixed evolution of findings as some of the previously visualized groundglass opacities have resolved but others are new. Similarly, there are some new tree-in-bud opacities. This could be related with a multifocal infectious/inflammatory process of the small airways. Recommend a short-term follow-up to ensure complete resolution of these findings. Mental Status Exam Mental Status Exam Patient Appearance: Fatigued Patient Orientation: Person, Place, Time and Situation Level of Consciousness: Awake and Appropriate Patient Behavior: Appropriate Mood Description: Blunted Affect Description: Blunted Thought Process: Intact Judgement: Fair (limited insight ) Medications Medications Current Medications Acetaminophen (Acetaminophen 325 Mg Tablet) 650 mg PO Q6H PRN PRN Reason: Pain, Mild (Pain Scale 1-3) Albuterol Sulfate (Albuterol Sulfate (0.083%) 2.5 Mg/3 Ml Vial.Neb) 2.5 mg INHALE Q2H PRN PRN Reason: Shortness of Breath Last Admin: 05/31/21 21:50 Dose: 2.5 mg Documented by: Albuterol/Ipratropium (Albuterol/Iprat 2.5/0.5mg 3 Ml Ampul.Neb) 3 ml INHALE RQ4H WHILE AWAKE [facility] Last Admin: 06/01/21 12:17 Dose: Not Given Documented by: Cariprazine (Cariprazine Hcl 1.5 Mg Capsule) 1.5 mg PO BEDTIME [facility] Last Admin: 05/31/21 22:20 Dose: 1.5 mg Documented by: Enoxaparin Sodium (Enoxaparin Sodium 40 Mg/0.4 Ml Syringe) 40 mg SUBCUT Q24H [facility] Last Admin: 05/31/21 15:10 Dose: Not Given Documented by: Gabapentin (Gabapentin 600 Mg Tablet) 600 mg PO TID [facility] Last Admin: 05/31/21 16:26 Dose: Not Given Documented by: Methylprednisolone Sodium Succinate (Methylprednisolone Sod Succ 40 Mg/Ml Vial) 40 mg IVPUSH Q6H [facility] Last Admin: 06/01/21 10:43 Dose: 40 mg Documented by: Morphine Sulfate (Morphine Sulfate 4 Mg/Ml Cartridge) 2 mg IVPUSH Q4H PRN; Protocol PRN Reason: respiratory distress Last Admin: 06/01/21 10:43 Dose: 2 mg Documented by: Nicotine (Nicotine 14 Mg Patch.Td24) 14 mg TRANSDERMA DAILY [facility] Last Admin: 06/01/21 07:13 Dose: 14 mg Documented by: Omeprazole (Omeprazole 40 Mg Capsule.Dr) 40 mg PO DAILY@0630 [facility] Last Admin: 06/01/21 05:49 Dose: 40 mg Documented by: Pharmacy Consult (Consult Rx Perform Med Rec) 1 each MISCELLANE ONCE PRN PRN Reason: Consult order Prazosin HCl (Prazosin Hcl 1 Mg Capsule) 2 mg PO BEDTIME PRN; Protocol PRN Reason: Insomnia Last Admin: 05/31/21 22:36 Dose: 2 mg Documented by: Sodium Chloride (0.9 % Sodium Chloride Flush 3 Ml Syringe) 3 ml IVFLUSH QSHIFT [facility] Last Admin: 06/01/21 10:44 Dose: 3 ml Documented by: Allergies Allergies Allergy/AdvReac Type Severity Reaction Status Date / Time latex [LATEX] Allergy Intermediate RASH Verified 05/31/21 11:03 adhesive tape [ADHESIVE TAPE] AdvReac Intermediate RASH Verified 05/31/21 11:03 Assessment & Plan Assessment & Plan (1) Opioid use disorder: Status: Acute Code(s): F11.99 - Opioid use, unspecified with unspecified opioid-induced disorder Assessment and Plan: * Patient discharged against medical advice * Unable to coordinate any discharge plan for continuation of opioid use di sorder treatment. Greater than 50% of the session was spent on counseling and/or coordination of care [facility] Past Medical History Medical History (Updated 06/01/21 @ 14:03 by Stephanie Murrieta CNP) Anxiety Asthma Bipolar disorder COVID-19 Crohn disease Crohn's disease Depression GERD (gastroesophageal reflux disease) Hx of substance abuse Opioid use disorder Pneumonia due to COVID-19 virus PTSD (post-traumatic stress disorder) Family History Family History Father Colon cancer Mother No problems noted. Brother Autism Sister Bipolar disorder Maternal Aunt Breast cancer Social History Social History Household Members: Significant Other and Other Housing: Homeless Housing Other:: 6 MONTHS HOMELESS Do you presently have visiting nurse or other home services: No Alcohol intake: unknown Patient Tobacco Use Status: Current everyday Tobacco user Tobacco use type: Cigarette Cigarette Packs Per Day: 0.33 Cigarettes Per Day: 6.6 Years Smoked: 9 e-Cigarette/Vaping Use: Currently Using Second Hand Smoke Exposure: Yes Substance Use Type: Crack/Cocaine and Heroin Advance Directives Date on File: 05/07/21 Current occupational status: unemployed
--- NOTE | 2021-06-01 15:52 | MHC.CM.PN ---
Pt admitted to ICU with respiratory failure in the setting of asthma exacerbation. Pt left AMA prior to CM completion of assessment and d/c plan
[2021-06-02 17:22] LABS: Myeloperoxidase Antibody <1.0 AI; Proteinase 3 PR3 Antibodies <1.0 AI
[2021-06-06 02:27] LABS: Immunoglobulin E 425 kU/L (<OR=114)
== END 2021-06-01 13:24 | disposition left against medical advice (07) | DRG 142 ==
LOC: HO.ED 13:14 → HO.EDOVER 15:06 → HO.ICU 19:29 → HO.S3 06-01 09:09
PROVIDERS: Internal Medicine Cardiovascular Disease; Registered Nurse Community Health; Admitting Provider Family Medicine; Emergency Provider Emergency Medicine; PCP Nurse Practitioner Family; Visit Provider Physician Assistant Medical
DX: J67.9 Hypersensitivity pneumonitis due to unspecified organic dust (principal); J96.01 Acute respiratory failure with hypoxia; J45.52 Severe persistent asthma with status asthmaticus; F11.23 Opioid dependence with withdrawal; F17.210 Nicotine dependence, cigarettes, uncomplicated; K50.90 Crohn's disease, unspecified, without complications; F41.9 Anxiety disorder, unspecified; F43.10 Post-traumatic stress disorder, unspecified; Z20.822 Contact with and (suspected) exposure to COVID-19; Z71.6 Tobacco abuse counseling; Z59.00 Homelessness unspecified; Z79.899 Other long term (current) drug therapy
CPT/HCPCS: 36415; 71045; 71250; 80048; 80053; 80076; 80307; 82785; 82803; 83605; 83735; 84100; 84702; 85025; 86021; 87040; 87635; 93005; 94640; 94644; 94660; 99285; J2060; J2250; J2270; J2920; J3475

== ENCOUNTER 2021-06-12 10:03 | Inpatient (IN) | payer OTHER, SELFPAY ==
[2021-06-12] VITALS (9 sets, daily range): BP systolic 128–134; BP diastolic 73–84; PULSE 89–114; RESP 15–24; TEMP 36.8–37.2; O2SAT 94–97; BMI 23.3
--- NOTE | ~2021-06-12 | XR_ITS ---
EXAMINATION: XR CHEST CLINICAL INFORMATION: Shortness of breath COMPARISON: Chest radiographs 05/31/2021, 05/06/2021, CT chest noncontrast 05/31/2021 TECHNIQUE: Frontal view of the chest x2 views are obtained. FINDINGS: The lungs are clear. There is no lobar segmental airspace consolidation. The subtle groundglass opacities noted on recent chest CT are not appreciated on plain film. The costophrenic sulci are clear. The heart is normal in size. The vascularity is normal. There is no pneumothorax or pleural reaction. The hilar and mediastinal contours are normal. Dextrocurvature thoracic spine again seen. There are bilateral nipple piercings. XR/XR chest 1V IMPRESSION: Unremarkable examination.
[2021-06-12 12:06] LABS: COVID-19 Test Negative (Negative); IDNOW Serial# 9DD0AD1C
--- NOTE | 2021-06-12 12:33 | ED.ASTHMA ---
HPI - Asthma General Chief Complaint: Upper Respiratory Symptoms Stated Complaint: Asthma Time Seen by Provider: 06/12/21 12:16 Source: patient and old records reviewed Mode of arrival: ambulatory Limitations: no limitations History of Present Illness HPI Narrative: 25 yo female with hx of asthma, substance abuse - snorts, prior COVID 19 dx, recently seen here with resp distress on 05/31 admitted to ICU on bipap - left AMA the next day comes in with c/o persistent wheezing WEBER, does not have access to neb machine, started on ?20mg from this week no improvement complaint: asthma attack , shortness of breath and wheezing Onset (ago): day(s) (has been going on and off for weeks) Severity: moderate Context: recent URI Associated symptoms: productive cough Asthma History: childhood onset Treatments Prior to Arrival: other (po prednisone) Related Data Home Medications Medication Instructions Recorded Confirmed prazosin 2 mg capsule 1 cap PO BEDTIME 04/17/21 06/12/21 albuterol sulfate 90 mcg/actuation 2 puff INHALATION QID PRN 05/06/21 06/12/21 aerosol inhaler (ProAir HFA) cyclobenzaprine 5 mg tablet 2.5 tab PO TID PRN 05/31/21 06/12/21 prednisone 20 mg tablet 20 mg PO DAILY 06/12/21 06/12/21 Previous Rx's Medication Instructions Recorded cariprazine 1.5 mg capsule 1.5 mg PO BEDTIME 30 Days #30 cap 05/08/21 (Vraylar) doxepin 10 mg capsule 10 mg PO BEDTIME 30 Days #30 cap 05/08/21 omeprazole 40 mg capsule,delayed 40 mg PO .morning 30 Days #30 cap 05/08/21 release albuterol sulfate 2.5 mg INHALATION Q4-6H PRN #75 ml 06/01/21 gabapentin 600 mg tablet 600 mg PO TID 30 Days #90 tab 06/03/21 Allergies Allergy/AdvReac Type Severity Reaction Status Date / Time latex [LATEX] Allergy Intermediate RASH Verified 06/12/21 11:39 adhesive tape [ADHESIVE TAPE] AdvReac Intermediate RASH Verified 06/12/21 11:39 Review of Systems Review of Systems: Constitutional : No Fever, No Chills ENT/Mouth : No Hoarseness, No sore throat, No Rhinorrhea Eyes: No Redness, No Discharge, No Vision Changes Cardiovascular : No Chest Pain, positive SOB, positive Dyspnea on Exertion, No Edema Respiratory : positive Cough, No Sputum, positive Wheezing, Gastrointestinal : No Nausea, No Vomiting, No Diarrhea, No abdominal Pain Genitourinary : No Dysuria, No Hematuria Musculoskeletal : No joint pain, No Myalgias Skin : No rash Neuro : No Weakness, No Numbness, No Headache Psych : No anxiety, depression Heme/Lymph: No Bruising, No Bleeding Endocrine : No Polyuria, No Polydipsia All other systems reviewed and are negative [facility] Past Medical History Attestation statement: The following information was validated with the patient. Medical History Anxiety Asthma Bipolar disorder COVID-19 Crohn disease Crohn's disease Depression GERD (gastroesophageal reflux disease) Hx of substance abuse Opioid use disorder Pneumonia due to COVID-19 virus PTSD (post-traumatic stress disorder) Family History Family History Father Colon cancer Mother No problems noted. Brother Autism Sister Bipolar disorder Maternal Aunt Breast cancer Social History Social History Household Members: Significant Other and Other Housing: Homeless Housing Other:: 6 MONTHS HOMELESS Do you presently have visiting nurse or other home services: No Alcohol intake: unknown Patient Tobacco Use Status: Current everyday Tobacco user Tobacco use type: Cigarette Cigarette Packs Per Day: 0.33 Cigarettes Per Day: 6.6 Years Smoked: 9 e-Cigarette/Vaping Use: Currently Using Second Hand Smoke Exposure: Yes Substance Use Type: Crack/Cocaine and Heroin Advance Directives: Yes Advance Directives on File: Yes Advance Directives Date on File: 05/07/21 Patient : No Current occupational status: unemployed Physical Exam Vital Signs: Vital Signs: Last Vital Signs Temp 98.2 F 06/12/21 11:40 Pulse 101 H 06/12/21 12:51 Resp 18 06/12/21 11:40 BP 129/76 06/12/21 11:40 Pulse Ox 96 06/12/21 11:40 Body Mass Index 23.3 Appearance: Alert. Oriented X3. Mild acute distress. Eyes: Pupils equal, round and reactive to light. ENT: Pharynx normal. Neck: Normal inspection. Neck supple. CVS: Normal heart rate and rhythm. Pulses normal. Respiratory: Mild respiratory distress - retractions and dyspnea. Breath sounds diffuse end exp wheezes audible Abdomen: Soft and non-tender. Skin: Skin warm and dry. Normal skin color. Normal skin turgor. Extremities: No lower extremity edema. No calf ttp Neuro: Oriented X 3. No motor deficit. No sensory deficit. Course Course Course Narrative: still wheezing has no access to neb machine will admit for further workup MDM - Asthma MDM Narrative Medical decision making narrative: 25 yo female with hx of asthma here with c/o asthma without access to neb machine states she is on low dose steroids - at this time labs, CXR, hour long 10mg neb, IV steroids, IV magnesium. She is asking for medications for withdrawal but is refusing maintenance therapy will involve addiction medicine if possible. Dispo per results and findings. Lab Data Result diagrams: 06/12/21 13:18 06/12/21 13:18 Labs: Lab Results 06/12/21 06/12/21 06/12/21 Range/Units 11:46 13:18 13:18 WBC 6.8 (4.8-10.8) X10*3/uL RBC 4.72 (4.20-5.50) X10*6/uL Hgb 13.0 (12.0-16.0) g/dl Hct 40.2 (37-47) % MCV 85.2 (80-98) fL MCH 27.5 (27.0-33.0) pg MCHC 32.3 (31.0-35.0) g/dl RDW 13.5 (11.0-16.0) % Plt Count 303 D (160-400) X10*3/uL MPV 9.9 (9.4-12.3) fL Immature Gran % (Auto) 0.3 (0.0-0.4) % Neut % (Auto) 73.7 H (45-73) % Lymph % (Auto) 17.3 L (20-40) % [place] % (Auto) 6.2 (2-11) % Eos % (Auto) 2.2 (0-4) % Baso % (Auto) 0.3 (0-2) % Lymph # (Auto) 1.2 (1.2-4.9) X10*3/uL [place] # (Auto) 0.4 (0.1-1.2) X10*3/uL Eos # (Auto) 0.2 (0.0-0.4) X10*3/uL Baso # (Auto) 0.0 (0.0-0.2) X10*3/uL Abs Immat Gran (auto) 0.02 (0.00-0.03) X10*3/uL Absolute Neuts (auto) 5.0 (2.0-8.3) X10*3/uL Absolute Nucleated RBC 0.000 (0.0-0.012) X10*3/uL Nucleated RBC % (auto) 0.0 (0.0-0.2) /100WBC Sodium 137 (135-145) mmol/L Potassium 5.6 H D (3.3-5.1) mmol/L Chloride 104 (96-108) mmol/L Carbon Dioxide 21 L (22-29) mmol/L Anion Gap 18 (12-20) BUN 7 L (9-16) mg/dL Creatinine 0.69 (0.5-1.4) mg/dL Estim Creat Clear Calc 114.1 Estimated GFR > 60 Random Glucose 99 (60-115) mg/dL Calcium 9.4 (8.4-10.2) mg/dL Beta HCG, Quant < 2 mIU/mL COVID-19 (DAVID) Negative (Negative) COVID-19 Clin Com See Note Critical Care Time Critical Care Time Critical Care Time: Yes Total Critical Care Time: 60 Attestation: hour long neb I attest to this time spent taking care of the patient Discharge Plan Discharge Clinical Impression: Opioid use disorder, Asthma Patient Disposition: Admitted As Inpatient Prescriptions: No Action omeprazole 40 mg capsule,delayed release(DR/EC) 40 mg PO .morning 30 Days Qty: 30 RF: 2 Vraylar 1.5 mg capsule 1.5 mg PO BEDTIME 30 Days Qty: 30 RF: 0 doxepin 10 mg capsule 10 mg PO BEDTIME 30 Days Qty: 30 RF: 0 gabapentin 600 mg tablet 600 mg PO TID 30 Days Qty: 90 RF: 0 albuterol sulfate [ProAir HFA] 90 mcg/actuation Hfa Aerosol Inhaler 2 puff INHALATION QID PRN (Reason: Dyspnea) RF: 0 prazosin 2 mg capsule 1 cap PO BEDTIME RF: 0 cyclobenzaprine 5 mg tablet 2.5 tab PO TID PRN (Reason: Muscle Spasm) RF: 0 albuterol sulfate 2.5 mg /3 mL (0.083 %) solution for nebulization 2.5 mg inhalation Q4-6H PRN (Reason: shortness of breath or wheezing) Qty: 75 RF: 0 prednisone 20 mg tablet 20 mg PO DAILY RF: 0
[2021-06-12] MEDS: Albuterol Sulfate (0.083%) 2.5 MG/3 ML VIAL.NEB 10 MG INHALE (12:51)
[2021-06-12 13:24] LABS: MANUAL DIFF FLAG NO
[2021-06-12] MEDS: Magnesium Sulfate/H2O 2 GM/50 ML PIGGYBACK IV (13:27)
[2021-06-12] MEDS: methylPREDNISolone Sod Succ 125 MG/2 ML VIAL IVPUSH (13:27)
[2021-06-12] MEDS: 0.9 % Sodium Chloride 500 ML IV (13:27)
[2021-06-12 13:31] LABS: Basophils Percent Auto 0.3 % (0-2); Eosinophils Absolute Auto 0.2 X10*3/uL (0.0-0.4); Eosinophils Percent Auto 2.2 % (0-4); Hematocrit 40.2 % (37-47); Imm Gran Abs Auto 0.02 X10*3/uL (0.00-0.03); Imm Gran Pct Auto 0.3 % (0.0-0.4); Lymphocytes Absolute Auto 1.2 X10*3/uL (1.2-4.9); Lymphocytes Percent Auto 17.3 % (20-40); Mean Corpuscular HGB Conc 32.3 g/dl (31.0-35.0); Mean Corpuscular Hemoglobin 27.5 pg (27.0-33.0); Mean Corpuscular Volume 85.2 fL (80-98); Mean Platelet Volume 9.9 fL (9.4-12.3); Monocytes Absolute Auto 0.4 X10*3/uL (0.1-1.2); Monocytes Percent Auto 6.2 % (2-11); Neutrophils Percent Auto 73.7 % (45-73); Platelet Count 303 X10*3/uL (160-400); Red Blood Count 4.72 X10*6/uL (4.20-5.50); Red Cell Distribution Width 13.5 % (11.0-16.0); White Blood Count 6.8 X10*3/uL (4.8-10.8)
[2021-06-12 13:48] LABS: HCG Quantitative < 2 mIU/mL
[2021-06-12 13:51] LABS: Anion Gap 18 (12-20); Blood Urea Nitrogen 7 mg/dL (9-16); Calcium 9.4 mg/dL (8.4-10.2); Carbon Dioxide 21 mmol/L (22-29); Chloride 104 mmol/L (96-108); Creatinine Clr Calc Pharmacy 114.1; Estimated Glomerular Filt Rate > 60; Glucose Random 99 mg/dL (60-115); Potassium 5.6 mmol/L (3.3-5.1); Sodium 137 mmol/L (135-145)
--- NOTE | 2021-06-12 14:04 | PHA.MEDREC ---
Pharmacy Consult ? Medication Reconciliation Pharmacy has completed the medication reconciliation. Patient is no longer using nicotine patches. She reports using prazosin at night however her last fill was April 03 2021. She states she is taking prednisone 1 tablet a day. Nereida Raines, PharmD
--- NOTE | 2021-06-12 14:56 | PM.IMHP ---
History of Present Illness Date of Service: 06/12/21 Chief Complaint: Shortness of breath 25 year old women presenting with shortness of breath over the last several days. She has a history of asthma and she snort heroin about 2 bundles daily. She is currently homeless and stated that she has had increased shortness of breath and cough with yellow phlegm. She was recently discharged from [facility] on 06/01 and treated for asthma exacerbation. Her potassium was noted to be elevated at 5.6, urine opiates and fentanyl positive, chest x-ray negative for consolidation and she was not noted to be hypoxic. She received albuterol, Solu-Medrol, magnesium and was started on methadone while in ER. She will be admitted further management and treatment acute asthma exacerbation. Review of Systems Review of Systems: Denies any recent fever chills or decrease in appetite respiratory See HPI cardiovascular denies chest pain gastrointestinal denies any dysphagia abdominal pain nausea vomiting or diarrhea genitourinary denies any dysuria frequency or hematuria musculoskeletal denies any joint pain or swelling neuropsych denies any weakness or seizures all other systems reviewed are negative [facility] Medical History (Updated 06/12/21 @ 16:30 by Marianela Mcwilliams NP) Anxiety Asthma Bipolar disorder COVID-19 Crohn's disease Depression GERD (gastroesophageal reflux disease) Opioid use disorder Pneumonia due to COVID-19 virus PTSD (post-traumatic stress disorder) Family History Father Colon cancer Mother No problems noted. Brother Autism Sister Bipolar disorder Maternal Aunt Breast cancer Pertinent family history: . Social History Household Members: Significant Other and Other Housing: Homeless Housing Other:: 6 MONTHS HOMELESS Do you presently have visiting nurse or other home services: No Alcohol intake: unknown Patient Tobacco Use Status: Current everyday Tobacco user Tobacco use type: Cigarette Cigarette Packs Per Day: 0.33 Cigarettes Per Day: 6.6 Years Smoked: 9 e-Cigarette/Vaping Use: Currently Using Second Hand Smoke Exposure: Yes Substance Use Type: Crack/Cocaine and Heroin Advance Directives: Yes Advance Directives on File: Yes Advance Directives Date on File: 05/07/21 Patient : No Current occupational status: unemployed Meds Allergies Allergy/AdvReac Type Severity Reaction Status Date / Time latex [LATEX] Allergy Intermediate RASH Verified 06/12/21 11:39 adhesive tape [ADHESIVE TAPE] AdvReac Intermediate RASH Verified 06/12/21 11:39 Active Medications: Current Medications Acetaminophen (Acetaminophen 325 Mg Tablet) 650 mg PO Q6H PRN PRN Reason: Pain, Mild (Pain Scale 1-3) Albuterol Sulfate (Albuterol Sulfate (0.083%) 2.5 Mg/3 Ml Vial.Neb) 2.5 mg INHALE RQ4H WHILE AWAKE [facility] Last Admin: 06/12/21 14:53 Dose: Not Given Documented by: Enoxaparin Sodium (Enoxaparin Sodium 40 Mg/0.4 Ml Syringe) 40 mg SUBCUT Q24H SHEILA Methylprednisolone Sodium Succinate (Methylprednisolone Sod Succ 40 Mg/Ml Vial) 40 mg IVPUSH Q8H SHEILA Ondansetron HCl (Ondansetron Hcl 4 Mg/2 Ml Vial) 4 mg IVPUSH Q8H PRN PRN Reason: Nausea and Vomiting Sodium Chloride (0.9 % Sodium Chloride Flush 3 Ml Syringe) 3 ml IVFLUSH QSHIFT [facility] Home Medications Medication Instructions Recorded Confirmed Last Taken Type prazosin 2 mg capsule 1 cap PO BEDTIME 04/17/21 06/12/21 06/11/21 History albuterol sulfate 90 mcg/actuation 2 puff INHALATION QID PRN 05/06/21 06/12/21 06/11/21 History aerosol inhaler (ProAir HFA) cyclobenzaprine 5 mg tablet 2.5 tab PO TID PRN 05/31/21 06/12/21 06/11/21 History prednisone 20 mg tablet 20 mg PO DAILY 06/12/21 06/12/21 06/11/21 History Physical Exam Vital Signs and Narrative: Vital Signs: Last Vital Signs Temp 98.2 F 06/12/21 11:40 Pulse 101 H 06/12/21 12:51 Resp 18 06/12/21 11:40 BP 129/76 06/12/21 11:40 Pulse Ox 96 06/12/21 11:40 Body Mass Index 23.3 Appearing in no acute distress head is normocephalic atraumatic eyes pupils are PERRLA sclera is anicteric mouth throat mucous membranes are intact and moist neck is supple no lymphadenopathy, no JVD noted lung sounds exp wheezes heart regular rate rhythm, clear S1, S2 positive bowel sounds, abdomen is soft, nontender neuro patient is alert x3, no focal deficits Results Labs CBC and Chem 7: 06/12/21 13:18 06/12/21 13:18 Labs: Laboratory Results - last 24 hr 06/12/21 06/12/21 06/12/21 11:46 13:18 13:18 MCV 85.2 MCH 27.5 MCHC 32.3 RDW 13.5 Plt Count 303 D MPV 9.9 Immature Gran % (Auto) 0.3 Neut % (Auto) 73.7 H Lymph % (Auto) 17.3 L [place] % (Auto) 6.2 Eos % (Auto) 2.2 Baso % (Auto) 0.3 Lymph # (Auto) 1.2 [place] # (Auto) 0.4 Eos # (Auto) 0.2 Baso # (Auto) 0.0 Abs Immat Gran (auto) 0.02 Absolute Neuts (auto) 5.0 Absolute Nucleated RBC 0.000 Nucleated RBC % (auto) 0.0 Anion Gap 18 Estim Creat Clear Calc 114.1 Estimated GFR > 60 Random Glucose 99 Calcium 9.4 Beta HCG, Quant < 2 COVID-19 (DAVID) Negative COVID-19 Clin Com See Note Imaging Radiologist's Impressions: Impressions Chest X-Ray 06/12/21 11:55 IMPRESSION: Unremarkable examination. Assessment and Plan (1) Asthma: Qualifiers: Asthma complication type: with status asthmaticus Asthma persistence: persistent Asthma severity: severe Qualified Code(s): J45.52 - Severe persistent asthma with status asthmaticus Status: Acute (2) Opioid use disorder: Status: Acute (3) Hyperkalemia: Status: Acute 25 year old women admitted with asthma exacerbation Acute asthma exacerbation Albuterol scheduled Solumedrol Supplemental oxygen as needed Hyperkalemia will give one dose of kayexalate trend Substance abuse Started on methadone as per addiction team Mental health Continue all home medications DVT prophylaxis with lovenox Attending Dr. Musa Full code Quality Stroke Does the patient have a stroke diagnosis?: No VTE Prior VTE?: No VTE Risk Level:: Medical - moderate - high VTE Device Contraindication: Treatment Not Indicated VTE Drug Contraindication: N/A - Med Ordered
--- NOTE | 2021-06-12 15:01 | HO.ADDICT_ITS ---
History of Present Illness Date of Service: 06/12/2021 Chief Complaint: Asthma exacerbation Reason for Consult: OUD Requesting physician: Maria C Laureano Discussed with referring provider: Yes Sources of Information: patient interviewed and chart reviewed HPI Narrative: Patient is a 25 year old female with OUD currently in [facility] for asthma exacerbation. She reports she is using up to 3 bundles QD and very recently started using IV. Has been getting syringes from [facility] She has been living outisde with her boyfriend for the last month She is tearful and stating she is tired and can't go back to the streets Last use reported as being earlier this morning btwn 6 and 8am She is endorsing mild withdrawal sx such as anxiety, restlessness and body aches Requesting to be started in methadone with plan at this to continue in treatment Denies any recent overdose Reports occasional benzo use on the street when she is able to purchase them, but not taking with any regularity Medical Evaluation Reviewed: Yes unclear at time of evaluation if patient will be admitted to medical floor Review of Systems Constitutional: Reports body ache(s), Reports difficulty sleeping, Reports fatigue, Reports lethargy and Reports malaise Cardiovascular: Reports dyspnea and Reports dyspnea on exertion Respiratory: Reports dyspnea and Reports dyspnea on exertion Gastrointestinal: Denies loose stools and Denies nausea Psychiatric: Reports anxiety and Reports depression Endocrine: Reports fatigue Diagnostics Vital Signs (24Hr): Vital Signs - 24 hr 06/12/21 11:40 06/12/21 12:51 Temperature 98.2 F Pulse Rate 92 101 H Respiratory Rate 18 Blood Pressure 129/76 Pulse Oximetry 96 Body Mass Index 23.3 Labs Results: 06/12/21 13:18 06/12/21 13:18 Labs: Laboratory Results - last 48 hr 06/12/21 06/12/21 06/12/21 11:46 13:18 13:18 WBC 6.8 RBC 4.72 Hgb 13.0 Hct 40.2 MCV 85.2 MCH 27.5 MCHC 32.3 RDW 13.5 Plt Count 303 D MPV 9.9 Immature Gran % (Auto) 0.3 Neut % (Auto) 73.7 H Lymph % (Auto) 17.3 L [place] % (Auto) 6.2 Eos % (Auto) 2.2 Baso % (Auto) 0.3 Lymph # (Auto) 1.2 [place] # (Auto) 0.4 Eos # (Auto) 0.2 Baso # (Auto) 0.0 Abs Immat Gran (auto) 0.02 Absolute Neuts (auto) 5.0 Absolute Nucleated RBC 0.000 Nucleated RBC % (auto) 0.0 Sodium 137 Potassium 5.6 H D Chloride 104 Carbon Dioxide 21 L Anion Gap 18 BUN 7 L Creatinine 0.69 Estim Creat Clear Calc 114.1 Estimated GFR > 60 Random Glucose 99 Calcium 9.4 Beta HCG, Quant < 2 COVID-19 (DAVID) Negative COVID-19 Clin Com See Note Imaging Radiology Impressions: ITS Impressions Chest X-Ray 06/12/21 11:55 IMPRESSION: Unremarkable examination. Mental Status Exam Mental Status Exam Patient Appearance: Appropriate Patient Orientation: Person, Place, Time and Situation Level of Consciousness: Awake, Appropriate and Alert Patient Behavior: Appropriate and Cooperative Mood Description: Calm Affect Description: Anxious Speech Pattern: Clear Judgement: Fair Medications Medications Current Medications Acetaminophen (Acetaminophen 325 Mg Tablet) 650 mg PO Q6H PRN PRN Reason: Pain, Mild (Pain Scale 1-3) Albuterol Sulfate (Albuterol Sulfate (0.083%) 2.5 Mg/3 Ml Vial.Neb) 2.5 mg INHALE RQ4H WHILE AWAKE [facility] Last Admin: 06/12/21 14:53 Dose: Not Given Documented by: Enoxaparin Sodium (Enoxaparin Sodium 40 Mg/0.4 Ml Syringe) 40 mg SUBCUT Q24H SHEILA Methylprednisolone Sodium Succinate (Methylprednisolone Sod Succ 40 Mg/Ml Vial) 40 mg IVPUSH Q8H SHEILA Ondansetron HCl (Ondansetron Hcl 4 Mg/2 Ml Vial) 4 mg IVPUSH Q8H PRN PRN Reason: Nausea and Vomiting Sodium Chloride (0.9 % Sodium Chloride Flush 3 Ml Syringe) 3 ml IVFLUSH QSHIFT SHEILA Allergies Allergies Allergy/AdvReac Type Severity Reaction Status Date / Time latex [LATEX] Allergy Intermediate RASH Verified 06/12/21 11:39 adhesive tape [ADHESIVE TAPE] AdvReac Intermediate RASH Verified 06/12/21 11:39 Assessment & Plan Assessment & Plan (1) Opioid use disorder: Status: Acute Code(s): F11.99 - Opioid use, unspecified with unspecified opioid-induced disorder Assessment and Plan: * methadone 20mg X1 * reassess in 3-4 hours may have additional 5-10mg methadone if COWS score >5. * Will reassess in AM and determine dosing titration * Hepatitis and HIV with labwork I spent 45 minutes with the patient and/or on the patient floor today, greater than?50% of which was spent counseling/coordinating care. PMFSH Past Medical History Medical History Anxiety Asthma Bipolar disorder COVID-19 Crohn disease Crohn's disease Depression GERD (gastroesophageal reflux disease) Hx of substance abuse Opioid use disorder Pneumonia due to COVID-19 virus PTSD (post-traumatic stress disorder) Family History Family History Father Colon cancer Mother No problems noted. Brother Autism Sister Bipolar disorder Maternal Aunt Breast cancer Social History Social History Household Members: Significant Other and Other Housing: Homeless Housing Other:: 6 MONTHS HOMELESS Do you presently have visiting nurse or other home services: No Alcohol intake: unknown Patient Tobacco Use Status: Current everyday Tobacco user Tobacco use type: Cigarette Cigarette Packs Per Day: 0.33 Cigarettes Per Day: 6.6 Years Smoked: 9 e-Cigarette/Vaping Use: Currently Using Second Hand Smoke Exposure: Yes Substance Use Type: Crack/Cocaine and Heroin Advance Directives: Yes Advance Directives on File: Yes Advance Directives Date on File: 05/07/21 Patient : No Current occupational status: unemployed
[2021-06-12] MEDS: methADONE HCl 20 MG/2 ML ORAL.CONC PO (15:39)
[2021-06-12] MEDS: Enoxaparin Sodium 40 MG/0.4 ML SYRINGE SUBCUT (15:39)
[2021-06-12] MEDS: 0.9 % Sodium Chloride Flush 3 ML SYRINGE IVFLUSH (15:40)
[2021-06-12] MEDS: Sodium Polystyrene Sulfon/Sorb 15 GM/60 ML ORAL.SUSP PO (18:25)
--- NOTE | 2021-06-12 18:31 | PC.NURSE ---
Addendum entered by Nina Vargas 06/12/21 18:33: respiratory called for a breathing tx Original Note: pt resting in the stretcher, work of breathing slightly increased, breathing at about 24 per min, ls wheezing through out the lobes, slightly diaphoretic, any slight movement and the pt starts getting sob and winded, sating at 95% on room air, ns/sinus tach on the monitor.
[2021-06-12] MEDS: Albuterol Sulfate (0.083%) 2.5 MG/3 ML VIAL.NEB INHALE (19:28)
[2021-06-12] MEDS: methylPREDNISolone Sod Succ 40 MG/ML VIAL IVPUSH (20:48)
[2021-06-12] MEDS: cloNIDine HCL 0.1 MG TABLET PO (20:48)
[2021-06-12] MEDS: methADONE HCl 20 MG/2 ML ORAL.CONC 10 MG PO (20:52)
--- NOTE | 2021-06-12 21:03 | PC.NURSE ---
Medicated per Oct. Given pillow and reposition for comfort. No acute respiratory distress at this time. Will continue to monitor.
[2021-06-13] MEDS: 0.9 % Sodium Chloride Flush 3 ML SYRINGE IVFLUSH ×4 (00:29→23:18)
[2021-06-13] MEDS: methylPREDNISolone Sod Succ 40 MG/ML VIAL IVPUSH ×3 (05:28→19:44)
--- NOTE | 2021-06-13 05:32 | PC.NURSE ---
pt is sleeping at this time, no sign of respiratory distress.pt did have a bowel movement. medicated per mar
[2021-06-13 07:03] LABS: MANUAL DIFF FLAG NO
[2021-06-13 07:10] LABS: Hematocrit 36.2 % (37-47); Hemoglobin 11.9 g/dl (12.0-16.0); Imm Gran Abs Auto 0.03 X10*3/uL (0.00-0.03); Imm Gran Pct Auto 0.3 % (0.0-0.4); Lymphocytes Absolute Auto 1.1 X10*3/uL (1.2-4.9); Lymphocytes Percent Auto 12.1 % (20-40); Mean Corpuscular HGB Conc 32.9 g/dl (31.0-35.0); Mean Corpuscular Hemoglobin 27.6 pg (27.0-33.0); Mean Platelet Volume 9.9 fL (9.4-12.3); Monocytes Absolute Auto 0.5 X10*3/uL (0.1-1.2); Neutrophils Absolute Auto 7.3 X10*3/uL (2.0-8.3); Neutrophils Percent Auto 81.6 % (45-73); Platelet Count 321 X10*3/uL (160-400); Red Blood Count 4.31 X10*6/uL (4.20-5.50); Red Cell Distribution Width 13.5 % (11.0-16.0); White Blood Count 8.9 X10*3/uL (4.8-10.8)
[2021-06-13 07:31] LABS: Blood Urea Nitrogen 9 mg/dL (9-16)
[2021-06-13 07:32] LABS: Anion Gap 15 (12-20); Calcium 9.4 mg/dL (8.4-10.2); Carbon Dioxide 23 mmol/L (22-29); Chloride 104 mmol/L (96-108); Estimated Glomerular Filt Rate > 60; Glucose Random 107 mg/dL (60-115); Potassium 4.4 mmol/L (3.3-5.1); Sodium 138 mmol/L (135-145)
[2021-06-13] MEDS: methADONE HCl 20 MG/2 ML ORAL.CONC 30 MG PO (08:24)
[2021-06-13 08:29] VITALS: BP 119/81; PULSE 81; RESP 20; TEMP 36.9; O2SAT 93
--- NOTE | 2021-06-13 09:30 | MHC.CM.PN ---
CM ATTEMPTED TO MEET W/PT HOWEVER PT'S RN COMPLETING ADMISSION ASSESSMENT, THIS CM WILL REVISIT LATER THIS MORNING.
[2021-06-13 11:26] VITALS: BP 132/76; PULSE 79; RESP 18; TEMP 36.9; O2SAT 95
[2021-06-13] MEDS: Albuterol Sulfate (0.083%) 2.5 MG/3 ML VIAL.NEB INHALE ×2 (11:39→15:26)
--- NOTE | 2021-06-13 11:42 | PC.NURSE ---
cell phone , equipment technician cesar given to pt boyfriend
[2021-06-13 11:43] VITALS: PULSE 79; O2SAT 94
[2021-06-13] MEDS: methADONE HCl 20 MG/2 ML ORAL.CONC 10 MG PO (11:49)
--- NOTE | 2021-06-13 12:20 | P.PNIM_ITS ---
Subjective Subjective Date of Service: 06/13/21 Interval History: seen and examined this AM feeling sob and wheezing having greenish sputum reports generalized malaise willing to stay at this time for treatment of her respiratory symptoms Review of Systems no fevers or chills Physical Exam Vital Signs: Vital Signs: Last Vital Signs Temp 98.4 F 06/13/21 11:26 Pulse 79 06/13/21 11:43 Resp 18 06/13/21 11:26 BP 132/76 06/13/21 11:26 Pulse Ox 95 06/13/21 11:26 Body Mass Index 23.3 General - no acute distress, appears comfortable Cardiovascular - regular rate and rhythm, S1-S2 Lungs - diffuse rhonchi Abdomen - soft, nontender, no rebound or guarding Extremities - no edema bilaterally Neuro - awake and alert, no focal deficits Objective Data Active Medications Acetaminophen (Acetaminophen 325 Mg Tablet) 650 mg PO Q6H PRN PRN Reason: Pain, Mild (Pain Scale 1-3) Albuterol Sulfate (Albuterol Sulfate (0.083%) 2.5 Mg/3 Ml Vial.Neb) 2.5 mg INHALE RQ4H WHILE AWAKE [facility] Last Admin: 06/13/21 11:39 Dose: 2.5 mg Documented by: NONI Clonidine HCl (Clonidine Hcl 0.1 Mg Tablet) 0.1 mg PO TID PRN; Protocol PRN Reason: anxiety/restlessness Last Admin: 06/12/21 20:48 Dose: 0.1 mg Documented by: KRYSTINA Enoxaparin Sodium (Enoxaparin Sodium 40 Mg/0.4 Ml Syringe) 40 mg SUBCUT Q24H [facility] Last Admin: 06/12/21 15:39 Dose: 40 mg Documented by: LUISA Methadone HCl (Methadone Hcl 20 Mg/2 Ml Oral.Conc) 40 mg PO DAILY [facility] Methylprednisolone Sodium Succinate (Methylprednisolone Sod Succ 40 Mg/Ml Vial) 40 mg IVPUSH Q8H [facility] Last Admin: 06/13/21 11:50 Dose: 40 mg Documented by: CHARLENE Ondansetron HCl (Ondansetron Hcl 4 Mg/2 Ml Vial) 4 mg IVPUSH Q8H PRN PRN Reason: Nausea and Vomiting Sodium Chloride (0.9 % Sodium Chloride Flush 3 Ml Syringe) 3 ml IVFLUSH QSHIFT [facility] Last Admin: 06/13/21 08:25 Dose: 3 ml Documented by: CHARLENE Labs CBC & Chem 7: 06/13/21 06:46 06/13/21 06:46 Labs: Laboratory Results - last 24 hr 06/12/21 06/12/21 06/13/21 13:18 13:18 06:46 MCV 85.2 84.0 MCH 27.5 27.6 MCHC 32.3 32.9 RDW 13.5 13.5 Plt Count 303 D 321 MPV 9.9 9.9 Immature Gran % (Auto) 0.3 0.3 Neut % (Auto) 73.7 H 81.6 H Lymph % (Auto) 17.3 L 12.1 L [place] % (Auto) 6.2 6.0 Eos % (Auto) 2.2 0.0 Baso % (Auto) 0.3 0.0 Lymph # (Auto) 1.2 1.1 L [place] # (Auto) 0.4 0.5 Eos # (Auto) 0.2 0.0 Baso # (Auto) 0.0 0.0 Abs Immat Gran (auto) 0.02 0.03 Absolute Neuts (auto) 5.0 7.3 Absolute Nucleated RBC 0.000 0.000 Nucleated RBC % (auto) 0.0 0.0 Anion Gap 18 Estim Creat Clear Calc 114.1 Estimated GFR > 60 Random Glucose 99 Calcium 9.4 Beta HCG, Quant < 2 06/13/21 06:46 MCV MCH MCHC RDW Plt Count MPV Immature Gran % (Auto) Neut % (Auto) Lymph % (Auto) [place] % (Auto) Eos % (Auto) Baso % (Auto) Lymph # (Auto) [place] # (Auto) Eos # (Auto) Baso # (Auto) Abs Immat Gran (auto) Absolute Neuts (auto) Absolute Nucleated RBC Nucleated RBC % (auto) Anion Gap 15 Estim Creat Clear Calc 125.0 Estimated GFR > 60 Random Glucose 107 Calcium 9.4 Beta HCG, Quant Assessment and Plan (1) Asthma exacerbation: Status: Acute Assessment and Plan: This is a 25 yo F with a history of opiate use disorder, asthma who presents to the hospital with respiratory symptoms. She is admitted for further treatment 1. Acute Asthma exacerbation due to continual opiate use still with diffuse wheezing/rhonichi -- continue iv solumedrol today, likely po prednisone by tomorrow or day after continue updrats scheduled 2. Opiate use disorder methadone per addiction medicine 3. HyperK resolved 4. Mood continue baseline Full code DVT pptx, Lovenox Quality Stroke Does the patient have a stroke diagnosis?: No VTE Prior VTE?: No VTE Risk Level:: Medical - moderate - high VTE Device Contraindication: Treatment Not Indicated VTE Drug Contraindication: N/A - Med Ordered
--- NOTE | 2021-06-13 13:18 | MHC.CM.PN ---
EMR REVIEWED, PT ADMITTED W/ASTHMA EXAC, CM MET W/PT WHO REPORTS SHE IS HOMELESS AND HAS BEEN LIVING ON THE STEET, PT DENIES USE OF DME, PT ON COWS THAT IS BEING MANAGED BY ANICET[employer] STOCKTON AND REPORTS SHE WANTS TO STAY ON METHADONE AND MAY BE INTERESTED IN A INPT [place] TX PROGRAM, RECOVERY SUPPORT NURSE NOTIFIED VIA TIGER, PT ALSO REQUESTING HOUSING, PT AWARE CM CAN ASSIST W/PRISON PLACEMENT IF PT DOES NOT LEAVE AMA. PT VERIFIES PCP IS [facility] AND HCP IS ON FILE FROM PREVIOUS ADMISSION. D/C PLAN: PRISON VS SA TX, PT WILL NEED ASSISTANCE W/TRANSPORT.
[2021-06-13] MEDS: Enoxaparin Sodium 40 MG/0.4 ML SYRINGE SUBCUT (15:13)
[2021-06-13] MEDS: Gabapentin 600 MG TABLET PO ×2 (15:14→19:45)
[2021-06-13 15:26] VITALS: PULSE 87; O2SAT 93
[2021-06-13 15:39] VITALS: BP 144/88; PULSE 96; RESP 18; TEMP 36.2; O2SAT 93
--- NOTE | 2021-06-13 16:34 | HO.ADDICTPRO ---
Subjective Subjective Date of Service: 06/13/21 Reason For Visit: Asthma exacerbation Interim History: Patient received total of 30mg methadone yesterday And 30mg this morning--diaphoretic, restless and reporting nausea when seen by this typewriter ribbon winder earlier this morning. Additional 10mg administered with good effect Review of Systems Medical Review of Systems: unchanged Mental Status Exam Mental Status Exam Patient Appearance: Appropriate Patient Orientation: Person, Place, Time and Situation Level of Consciousness: Awake, Appropriate and Alert Patient Behavior: Appropriate and Cooperative Mood Description: Calm Affect Description: Anxious Speech Pattern: Clear Judgement: Fair Diagnostics Vital Signs (24Hr): Vital Signs - 24 hr 06/12/21 17:36 06/12/21 18:29 06/12/21 19:28 Temperature Pulse Rate 98 93 114 H Respiratory Rate 15 24 H Blood Pressure 134/84 131/80 Pulse Oximetry 94 95 06/12/21 20:48 06/12/21 23:25 06/13/21 08:29 Temperature 98.4 F 98.4 F Pulse Rate 111 H 89 81 Respiratory Rate 19 20 Blood Pressure 131/74 128/73 119/81 Pulse Oximetry 95 93 06/13/21 11:26 06/13/21 11:43 06/13/21 15:26 Temperature 98.4 F Pulse Rate 79 79 87 Respiratory Rate 18 Blood Pressure 132/76 Pulse Oximetry 95 06/13/21 15:39 Temperature 97.2 F Pulse Rate 96 Respiratory Rate 18 Blood Pressure 144/88 H Pulse Oximetry 93 Body Mass Index 23.3 Labs Results: 06/13/21 06:46 06/13/21 06:46 Labs: Laboratory Results - last 48 hr 06/12/21 06/12/21 06/12/21 11:46 13:18 13:18 WBC 6.8 RBC 4.72 Hgb 13.0 Hct 40.2 MCV 85.2 MCH 27.5 MCHC 32.3 RDW 13.5 Plt Count 303 D MPV 9.9 Immature Gran % (Auto) 0.3 Neut % (Auto) 73.7 H Lymph % (Auto) 17.3 L [place] % (Auto) 6.2 Eos % (Auto) 2.2 Baso % (Auto) 0.3 Lymph # (Auto) 1.2 [place] # (Auto) 0.4 Eos # (Auto) 0.2 Baso # (Auto) 0.0 Abs Immat Gran (auto) 0.02 Absolute Neuts (auto) 5.0 Absolute Nucleated RBC 0.000 Nucleated RBC % (auto) 0.0 Sodium 137 Potassium 5.6 H D Chloride 104 Carbon Dioxide 21 L Anion Gap 18 BUN 7 L Creatinine 0.69 Estim Creat Clear Calc 114.1 Estimated GFR > 60 Random Glucose 99 Calcium 9.4 Beta HCG, Quant < 2 COVID-19 (DAIVD) Negative COVID-19 Clin Com See Note 06/13/21 06/13/21 06:46 06:46 WBC 8.9 RBC 4.31 Hgb 11.9 L Hct 36.2 L MCV 84.0 MCH 27.6 MCHC 32.9 RDW 13.5 Plt Count 321 MPV 9.9 Immature Gran % (Auto) 0.3 Neut % (Auto) 81.6 H Lymph % (Auto) 12.1 L [place] % (Auto) 6.0 Eos % (Auto) 0.0 Baso % (Auto) 0.0 Lymph # (Auto) 1.1 L [place] # (Auto) 0.5 Eos # (Auto) 0.0 Baso # (Auto) 0.0 Abs Immat Gran (auto) 0.03 Absolute Neuts (auto) 7.3 Absolute Nucleated RBC 0.000 Nucleated RBC % (auto) 0.0 Sodium 138 Potassium 4.4 D Chloride 104 Carbon Dioxide 23 Anion Gap 15 BUN 9 Creatinine 0.63 Estim Creat Clear Calc 125.0 Estimated GFR > 60 Random Glucose 107 Calcium 9.4 Beta HCG, Quant COVID-19 (DAVID) COVID-19 Clin Com Imaging Radiology Impressions: ITS Impressions Chest X-Ray 06/12/21 11:55 IMPRESSION: Unremarkable examination. Medications Medications Current Medications Acetaminophen (Acetaminophen 325 Mg Tablet) 650 mg PO Q6H PRN PRN Reason: Pain, Mild (Pain Scale 1-3) Albuterol Sulfate (Albuterol Sulfate (0.083%) 2.5 Mg/3 Ml Vial.Neb) 2.5 mg INHALE RQ4H WHILE AWAKE [facility] Last Admin: 06/13/21 15:26 Dose: 2.5 mg Documented by: Cariprazine (Cariprazine Hcl 1.5 Mg Capsule) 1.5 mg PO BEDTIME SHEILA Clonidine HCl (Clonidine Hcl 0.1 Mg Tablet) 0.1 mg PO TID PRN; Protocol PRN Reason: anxiety/restlessness Last Admin: 06/12/21 20:48 Dose: 0.1 mg Documented by: Doxepin HCl (Doxepin Hcl 10 Mg Capsule) 10 mg PO BEDTIME [facility] Enoxaparin Sodium (Enoxaparin Sodium 40 Mg/0.4 Ml Syringe) 40 mg SUBCUT Q24H [facility] Last Admin: 06/13/21 15:13 Dose: 40 mg Documented by: Gabapentin (Gabapentin 600 Mg Tablet) 600 mg PO TID [facility] Last Admin: 06/13/21 15:14 Dose: 600 mg Documented by: Methadone HCl (Methadone Hcl 20 Mg/2 Ml Oral.Conc) 40 mg PO DAILY [facility] Methylprednisolone Sodium Succinate (Methylprednisolone Sod Succ 40 Mg/Ml Vial) 40 mg IVPUSH Q8H [facility] Last Admin: 06/13/21 11:50 Dose: 40 mg Documented by: Omeprazole (Omeprazole 40 Mg Capsule.Dr) 40 mg PO DAILY@0630 [facility] Ondansetron HCl (Ondansetron Hcl 4 Mg/2 Ml Vial) 4 mg IVPUSH Q8H PRN PRN Reason: Nausea and Vomiting Sodium Chloride (0.9 % Sodium Chloride Flush 3 Ml Syringe) 3 ml IVFLUSH QSHIFT [facility] Last Admin: 06/13/21 15:15 Dose: 3 ml Documented by: Allergies Allergies Allergy/AdvReac Type Severity Reaction Status Date / Time latex [LATEX] Allergy Intermediate RASH Verified 06/12/21 11:39 adhesive tape [ADHESIVE TAPE] AdvReac Intermediate RASH Verified 06/12/21 11:39 Assessment & Plan Assessment & Plan (1) Opioid use disorder: Status: Acute Code(s): F11.99 - Opioid use, unspecified with unspecified opioid-induced disorder Assessment and Plan: Methadone 40mg QD starting tomorrow morning Recovery support team to follow up in the AM HIV and Hepatitis screening labs ordered I spent __20____ minutes with the patient and/or on the patient floor today, greater than?50% of which was spent counseling/coordinating care.
[2021-06-13 19:28] VITALS: BP 136/72; PULSE 76; RESP 18; TEMP 36.9; O2SAT 93
[2021-06-13] MEDS: cloNIDine HCL 0.1 MG TABLET PO (19:44)
[2021-06-13] MEDS: Doxepin HCl 10 MG CAPSULE PO (19:45)
[2021-06-13] MEDS: Cariprazine HCl 1.5 MG CAPSULE PO (19:45)
[2021-06-13] MEDS: Acetaminophen 325 MG TABLET 650 MG PO (20:02)
[2021-06-13] MEDS: guaiFENesin DM 100/10/5 ML 5 ML SYRUP PO (21:45)
--- NOTE | 2021-06-13 22:49 | MHC.PIE ---
p; pt c/o pain 04/03, cough and nausea. PT was offered tylenol and Zofran but pt replied she prefer phenergan instead I; MD dr. Galeana was notified, new orders placed, Robitussin 5 ml po Q 6h, Phenergan 6.26 mg IV Q 6h, Ketorolac 15 mg once IV. E will continue to monitor
[2021-06-13] MEDS: Ketorolac Tromethamine 15 MG/ML VIAL IVPUSH (23:19)
[2021-06-14] VITALS: BP 109/60; PULSE 78; RESP 16; TEMP 36.1; O2SAT 95
[2021-06-14 03:26] VITALS: BP 108/61; PULSE 55; RESP 16; TEMP 36; O2SAT 93
[2021-06-14 04:41] LABS: HBsAGNum1 0.16 S/CO (0.00-0.99); HIV AB/AG Nonreactive (Nonreactive); HIV Num 1 0.07 S/CO (0.00-0.99); Hepatitis B Surface Antigen Negative (Negative); ~HepC Num1 0.19 S/CO (0.00-0.79); ~Hepatitis C Antibody Nonreactive (Nonreactive)
[2021-06-14 04:57] LABS: HBc Num1 0.08 S/CO (0.00-0.79); Hepatitis B Core Antibody Nonreactive (Nonreactive); ~Hepatitis B Surface Antibody NONREACTIVE (Nonreactive)
[2021-06-14] MEDS: methylPREDNISolone Sod Succ 40 MG/ML VIAL IVPUSH ×2 (05:09→13:22)
[2021-06-14] MEDS: Omeprazole 40 MG CAPSULE.DR PO (05:09)
[2021-06-14] MEDS: methADONE HCl 20 MG/2 ML ORAL.CONC 40 MG PO (06:48)
--- NOTE | 2021-06-14 06:51 | MHC.PIE ---
P: Pt was having some shaking and anxious, verbalizing desire to have her Methadone. I: Dr. Ulloa was messaged and moved pt's scheduled Methadone to 6am. E: med verfied by pharmacy and given to pt.
[2021-06-14 07:11] VITALS: BP 116/75; PULSE 77; RESP 16; TEMP 36; O2SAT 93
[2021-06-14] MEDS: Acetaminophen 325 MG TABLET 650 MG PO (09:20)
[2021-06-14] MEDS: 0.9 % Sodium Chloride Flush 3 ML SYRINGE IVFLUSH (09:26)
[2021-06-14 09:27] VITALS: BP 116/75; PULSE 77
[2021-06-14] MEDS: cloNIDine HCL 0.1 MG TABLET PO (09:27)
[2021-06-14] MEDS: Gabapentin 600 MG TABLET PO (09:33)
--- NOTE | 2021-06-14 10:09 | HO.PM.IMPN ---
Subjective Subjective Date of Service: 06/14/21 Interval History: seen and examined this AM breathing improved still having poor appetite Review of Systems no fevers or chills wheezing and breathing improved still nausea but improving Physical Exam Vital Signs: Vital Signs: Last Vital Signs Temp 96.8 F 06/14/21 07:11 Pulse 77 06/14/21 09:27 Resp 16 06/14/21 07:11 BP 116/75 06/14/21 09:27 Pulse Ox 93 06/14/21 07:11 Body Mass Index 23.3 Const: Other: General - no acute distress, appears comfortable Cardiovascular - regular rate and rhythm, S1-S2 Lungs - no distress, mild wheezing Abdomen - soft, nontender, no rebound or guarding Extremities - no edema bilaterally Neuro - awake and alert, no focal deficits Objective Data Active Medications Acetaminophen (Acetaminophen 325 Mg Tablet) 650 mg PO Q6H PRN PRN Reason: Pain, Mild (Pain Scale 1-3) Last Admin: 06/14/21 09:20 Dose: 650 mg Documented by: MARIZA Albuterol Sulfate (Albuterol Sulfate (0.083%) 2.5 Mg/3 Ml Vial.Neb) 2.5 mg INHALE RQ4H WHILE AWAKE [facility] Last Admin: 06/13/21 20:56 Dose: Not Given Documented by: JO ANN Non-Admin Reason: pt nauseaus Cariprazine (Cariprazine Hcl 1.5 Mg Capsule) 1.5 mg PO BEDTIME [facility] Last Admin: 06/13/21 19:45 Dose: 1.5 mg Documented by: TAYLOR Clonidine HCl (Clonidine Hcl 0.1 Mg Tablet) 0.1 mg PO TID PRN; Protocol PRN Reason: anxiety/restlessness Last Admin: 06/14/21 09:27 Dose: 0.1 mg Documented by: MARIZA Doxepin HCl (Doxepin Hcl 10 Mg Capsule) 10 mg PO BEDTIME [facility] Last Admin: 06/13/21 19:45 Dose: 10 mg Documented by: TAYLOR Enoxaparin Sodium (Enoxaparin Sodium 40 Mg/0.4 Ml Syringe) 40 mg SUBCUT Q24H [facility] Last Admin: 06/13/21 15:13 Dose: 40 mg Documented by: CHARLENE Gabapentin (Gabapentin 600 Mg Tablet) 600 mg PO TID [facility] Last Admin: 06/14/21 09:33 Dose: 600 mg Documented by: MARIZA Guaifenesin/Dextromethorphan (Guaifenesin Dm 100/10/5 Ml 5 Ml Syrup) 5 ml PO Q4H PRN PRN Reason: Cough Last Admin: 06/13/21 21:45 Dose: 5 ml Documented by: TAYLOR Promethazine HCl 6.25 mg/ (Sodium Chloride) 50.25 mls @ 201 mls/hr IV Q4H PRN PRN Reason: Nausea and Vomiting Last Infusion: 06/14/21 09:52 Dose: 0 mls/hr Documented by: MARIZA Methadone HCl (Methadone Hcl 20 Mg/2 Ml Oral.Conc) 40 mg PO DAILY@0600 [facility] Last Admin: 06/14/21 06:48 Dose: 40 mg Documented by: TAYLOR Methylprednisolone Sodium Succinate (Methylprednisolone Sod Succ 40 Mg/Ml Vial) 40 mg IVPUSH Q8H [facility] Last Admin: 06/14/21 05:09 Dose: 40 mg Documented by: TAYLOR Omeprazole (Omeprazole 40 Mg Capsule.Dr) 40 mg PO DAILY@0630 [facility] Last Admin: 06/14/21 05:09 Dose: 40 mg Documented by: TAYLOR Sodium Chloride (0.9 % Sodium Chloride Flush 3 Ml Syringe) 3 ml IVFLUSH QSHIFT [facility] Last Admin: 06/14/21 09:26 Dose: 3 ml Documented by: MARIZA Labs CBC & Chem 7: 06/13/21 06:46 06/13/21 06:46 Labs: Laboratory Results - last 24 hr 06/13/21 15:57 Hep Bs Antigen Negative Hep Bs Antibody NONREACTIVE Hep B Core Total Ab Nonreactive Hepatitis C Ab (EIA) Nonreactive HIV 1&2 Ab/P24 Ag 4thGn Nonreactive Assessment and Plan (1) Asthma exacerbation: Status: Acute Assessment and Plan: This is a 25 yo F with a history of opiate use disorder, asthma who presents to the hospital with respiratory symptoms. She is admitted for further treatment 1. Acute Asthma exacerbation due to continual opiate use symptoms significantly improved - will reeval this afternoon and if better, may be able to d/c 2. Opiate use disorder methadone per addiction medicine 3. HyperK resolved 4. Mood continue baseline Full code DVT pptx, Lovenox Quality Stroke Does the patient have a stroke diagnosis?: No VTE Prior VTE?: No VTE Risk Level:: Medical - moderate - high VTE Device Contraindication: Treatment Not Indicated VTE Drug Contraindication: N/A - Med Ordered
[2021-06-14] MEDS: methADONE HCl 20 MG/2 ML ORAL.CONC 5 MG PO (11:34)
--- NOTE | 2021-06-14 11:35 | MHC.RECOVRN ---
Addendum entered by Kate Tony 06/14/21 12:06: [facility] does not have bed availability. [facility] has bed availability, however, pt must be accepted to [facility] in order to receive methadone while at [facility]. Pt will be referred to [facility] and [facility]. Original Note: T/w met with pt to f/u regarding methadone initiation as well as discharge planning. Pt reports feeling withdrawal symptoms early in the morning and requested methadone dose at 6am, which was ordered. Pt denies withdrawal symptoms at this time, however, feels that dose needs to be increased. Pt would like to continue tx for OUD and have referrals placed for CSS and TSS level of care. [facility] does not have bed availability. Awaiting return calls from [facility], [facility], and [facility]. Discussed with Stephanie Murrieta APRN. Will continue to follow.
--- NOTE | 2021-06-14 15:44 | MHC.CM.PN ---
CM CONTACTED RECOVERY SUPPORT NURSE TO DISCUSS DCP, PER RECOVERY NURSE PT HAS LEFT AMA.
--- NOTE | 2021-06-14 15:58 | MHC.RECOVRN ---
T/w notifed by pts RN pt requesting to leave. Met with pt, discussed trigger for discharging and harm reduction methods if pt uses. Pt understands the risks associated with discharge without a plan in place. Pt acknowledges [facility] referral will not be valid once discharged from the hospital. Pt encouraged to return to the hospital if needed, pt agrees to do so. Pt signed AMA paperwork and t/w walked pt off floor. Stephanie Murrieta APRN, aware.
--- NOTE | 2021-06-14 16:05 | PM.EVENT ---
Event Note Date of Service: 06/14/21 Event Note: AMA Note Patient was informed this morning about the risks of doing so which included worsening of her asthma symptoms and possibly even . At that time, she was agreeable on staying. Later in the day, received a message from the patients RN that she was requesting to leave against medical advice. Patient did not wait for me to see her, but as mentioned above -- she was already explained the risks of doing so.
--- NOTE | 2021-06-14 16:14 | PM.DS ---
DS: Providers Provider Date of Service: 06/14/21 Date of admission: 06/12/21 14:43 Primary care physician: SRINI Pugh DS: Diagnosis Discharge Diagnosis (1) Asthma exacerbation: Status: Acute (2) Opioid use disorder: Status: Acute DS: Summary Hospital Course Hospital Course: HPI: 25 year old women presenting with shortness of breath over the last several days. She has a history of asthma and she snort heroin about 2 bundles daily. She is currently homeless and stated that she has had increased shortness of breath and cough with yellow phlegm. She was recently discharged from [facility] on 06/01 and treated for asthma exacerbation.? Her potassium was noted to be elevated at 5.6, urine opiates and fentanyl positive, chest x-ray negative for consolidation and she was not noted to be hypoxic.? She received albuterol, Solu-Medrol, magnesium and was started on methadone while in ER.? She will be admitted further management and treatment acute asthma exacerbation. Hospital Course: Patient was started on IV steroids and scheduled updraft from bronchodilators. She was also seen by Addiction Medicine and was started on methadone. She had slow improvement in her respiratory status and her withdrawal was also improving. The plan was for 1 more day of systemic steroids and scheduled bronchodilator. Addiction medicine was working on referrals with plan in place on day of discharge. Unfortunately, patient decided to leave against medical advice. Time Spent with Patient Time attestation: Total time spent providing and/or coordinating discharge services: Discharge coordination time: Less than 30 minutes Quality: Stroke Does the patient have a stroke diagnosis?: No Physical Exam Vital Signs: Vital Signs: Last Vital Signs Temp 96.8 F 06/14/21 07:11 Pulse 77 06/14/21 09:27 Resp 16 06/14/21 07:11 BP 116/75 06/14/21 09:27 Pulse Ox 93 06/14/21 07:11 Body Mass Index 23.3 Const: Other: left AMA without being seen DS: Data Data Completed and Pending Completed studies during hospitalization [Text1]: Procedures Assistance with Respiratory Ventilation, Less than 24 Consecutive Hours, Continuous Positive Airway Pressure (05/31/21) Detoxification Services for Substance Abuse Treatment (05/31/21) Labs on day of discharge: Laboratory Results - last 24 hr 06/13/21 15:57 Hep Bs Antigen Negative Hep Bs Antibody NONREACTIVE Hep B Core Total Ab Nonreactive Hepatitis C Ab (EIA) Nonreactive HIV 1&2 Ab/P24 Ag 4thGn Nonreactive Discharge Plan Discharge Patient Disposition: Left Against Medical Advice Discharge Diagnosis: Asthma OUD Left AMA Referrals: Vincent Haeys, [facility] [employer] [Primary Care Provider] - 1 Week Discharge Medications: No Action Vraylar 1.5 mg capsule 1.5 mg PO BEDTIME 30 Days Qty: 30 RF: 0 doxepin 10 mg capsule 10 mg PO BEDTIME 30 Days Qty: 30 RF: 0 gabapentin 600 mg tablet 600 mg PO TID 30 Days Qty: 90 RF: 0 albuterol sulfate [ProAir HFA] 90 mcg/actuation Hfa Aerosol Inhaler 2 puff INHALATION QID PRN (Reason: Dyspnea) RF: 0 prazosin 2 mg capsule 1 cap PO BEDTIME RF: 0 cyclobenzaprine 5 mg tablet 2.5 tab PO TID PRN (Reason: Muscle Spasm) RF: 0 albuterol sulfate 2.5 mg /3 mL (0.083 %) solution for nebulization 2.5 mg inhalation Q4-6H PRN (Reason: shortness of breath or wheezing) Qty: 75 RF: 0 prednisone 20 mg tablet 20 mg PO DAILY RF: 0 omeprazole 40 mg capsule,delayed release(DR/EC) 40 mg PO QAM RF: 0 Discharge Orders: Discharge Order (Routine); Ordered 06/14/21 Ordered By: Casey Musa Care Plan Goals: LEFT AMA Health Concerns: LEFT AMA Plan of Treatment: LEFT AMA Assessment: LEFT AMA Discharge Date/Time: 06/14/21 16:22
[2021-06-15 04:01] LABS: Hepatitis A Antibody IgM 0.24 Index (0-0.79); ~Hepatitis A Antibody IgM Nonreactive (Nonreactive)
== END 2021-06-14 16:22 | disposition left against medical advice (07) | DRG 141 ==
LOC: HO.ED 14:35 → HO.EDOVER 14:50 → HO.S3 06-13 07:06
PROVIDERS: Nurse Practitioner Psychiatric/Mental Health; Admitting Provider Nurse Practitioner Acute Care; Emergency Provider Emergency Medicine; PCP Nurse Practitioner Family; Visit Provider Family Medicine
DX: J45.901 Unspecified asthma with (acute) exacerbation (principal); E87.5 Hyperkalemia; K21.9 Gastro-esophageal reflux disease without esophagitis; F39 Unspecified mood [affective] disorder; Z86.16 Personal history of COVID-19; F11.20 Opioid dependence, uncomplicated; Z59.02 Unsheltered homelessness; Z87.891 Personal history of nicotine dependence; Z20.822 Contact with and (suspected) exposure to COVID-19; Z79.52 Long term (current) use of systemic steroids; Z79.899 Other long term (current) drug therapy
CPT/HCPCS: 36415; 71045; 80048; 84702; 85025; 86704; 86706; 86709; 86803; 87340; 87389; 87635; 94640; 94644; 99285; J1650; J1885; J2550; J2920; J2930; J3475

== ENCOUNTER 2021-11-04 14:23 | Inpatient (IN) | payer OTHER, SELFPAY ==
--- NOTE | ~2021-11-04 | XR_ITS ---
EXAMINATION: XR CHEST CLINICAL INFORMATION: Shortness of breath COMPARISON: None TECHNIQUE: 2 views of the chest were obtained. FINDINGS: The lungs are well-inflated and clear of acute process. The heart size and pulmonary vascularity is normal. No gross bony abnormality seen. XR/XR chest 2V IMPRESSION: Unremarkable chest exam
[2021-11-04 14:28] VITALS: BP 114/80; BP 153/106; PULSE 127; PULSE 133; RESP 26; TEMP 36.4; O2SAT 98; BMI 19.3
--- NOTE | 2021-11-04 14:30 | ECG_ITS ---
Test Reason : dyspena Blood Pressure : / mmHG Vent. Rate : 125 BPM Atrial Rate : 125 BPM P-R Int : 144 ms QRS Dur : 076 ms QT Int : 306 ms P-R-T Axes : 084 071 083 degrees QTc Int : 441 ms Sinus tachycardia with Premature atrial complexes Right atrial enlargement Borderline ECG When compared with ECG of 31-MAY-2021 11:20, No significant changes seen Referred By: Connie Grewal Electronically Signed By:ALEA ODEN
--- NOTE | 2021-11-04 14:30 | ED.GENADULT ---
HPI - General Adult General Chief complaint: Dyspnea Stated complaint: DIFF BREATHING Time Seen by Provider: 11/04/21 14:29 Source: patient and EMS Mode of arrival: EMS Limitations: no limitations History of Present Illness HPI narrative: Patient is a 26 year old female presenting to the emergency department today with shortness of breath and heroine withdrawal. Patient states that she has a history of asthma and has been having worsening shortness of breath over the last several days. Patient denies any dizziness, lightheadedness, abdominal pain, nausea, vomiting, fever, chills, blurry vision, double vision, loss of vision, chest pain, back pain, night sweats, pain with urination, increased urinary frequency, increased urinary urgency, blood in her urine or stool, syncope or a near syncopal episode, recent trauma or falls, bowel incontinence, bladder incontinence, bowel retention, bladder retention, or any other complaints at this time. Patient states that she has a history of using 6 bags of heroine a day and has not used for over 6 hours. Patient states that in the past, she has had to be on a bipap machine and intubated. ? Onset (ago): day(s) Radiation: non-radiation Relieving factors: none Exacerbating factors: none Associated symptoms: shortness of breath Related Data Home Medications Medication Instructions Recorded Confirmed cyclobenzaprine 5 mg tablet 2.5 tab PO TID PRN 05/31/21 11/04/21 clonazepam 2 mg tablet 2 mg PO BID 08/01/21 11/04/21 clonidine HCl 0.1 mg tablet 0.1 mg PO TID 08/01/21 11/04/21 risperidone 0.25 mg tablet 0.25 mg PO BEDTIME 08/01/21 11/04/21 Previous Rx's Medication Instructions Recorded doxepin 10 mg capsule 10 mg PO BEDTIME 30 Days #30 cap 05/08/21 cariprazine 1.5 mg capsule 1.5 mg PO BEDTIME #30 cap 07/11/21 (Vraylar) melatonin 10 mg tablet 10 mg PO BEDTIME 30 Days #30 tab 08/01/21 omeprazole 40 mg capsule,delayed 40 mg PO QAM 90 Days #90 cap 08/01/21 release prazosin 2 mg capsule 2 mg PO BEDTIME 30 Days #30 cap 09/18/21 albuterol sulfate 2.5 mg (3 mL) INHALATION Q4-6H PRN 10/09/21 #75 ml albuterol sulfate 90 mcg/actuation 2 puff INHALATION QID PRN 30 Days 10/09/21 aerosol inhaler (ProAir HFA) #8.5 g gabapentin 600 mg tablet 600 mg PO TID 30 Days #90 tab 10/09/21 Allergies Allergy/AdvReac Type Severity Reaction Status Date / Time latex [LATEX] Allergy Intermediate RASH Verified 08/01/21 16:52 adhesive tape [ADHESIVE TAPE] AdvReac Intermediate RASH Verified 08/01/21 16:52 Review of Systems Constitutional: Constitutional: Reports no additional constitutional complaints, Denies chills, Denies fever(s) and Denies night sweats Eyes: Eyes: Reports no additional eye complaints, Denies blurry vision, Denies change in vision, Denies diplopia, Denies eye discharge, Denies loss of vision and Denies eye pain ENT: Denies dizziness Cardiovascular: Cardiovascular: Reports no additional cardiovascular complaints, Denies chest pain, Denies lightheadedness, Denies Loss of Consciousness and Reports dyspnea Respiratory: Respiratory: Reports no additional respiratory complaints and Reports dyspnea Gastrointestinal: Gastrointestinal: Reports no additional gastrointestinal complaints, Denies abdominal pain, Denies melena, Denies hematochezia, Denies change in bowel habits and Denies change in stool character Genitourinary: Genitourinary: Denies hematuria, Denies urinary frequency, Denies dysuria, Denies urinary incontinence, Denies urinary hesitancy and Denies urinary urgency Musculoskeletal: Musculoskeletal: Reports no additional musculoskeletal complaints, Denies numbness and Denies tingling Neurologic: Denies dizziness, Denies loss of vision, Denies numbness and Denies tingling Psychiatric: Psychiatric: Reports no additional psychiatric complaints Endocrine: Endocrine: Reports no additional endocrine complaints Hematologic/Lymphatic: Hematologic/Lymphatic: Reports no additional hematologic/lymphatic complaints Allergic/Immunologic: Allergic/Immunologic: Reports no additional allergic/immunologic complaints PMFSH Past Medical History Attestation statement: The following information was validated with the patient. Source: old records reviewed Medical History Anxiety Asthma Asthma Bipolar disorder COVID-19 Crohn's disease Depression GERD (gastroesophageal reflux disease) Opioid use disorder Pneumonia due to COVID-19 virus PTSD (post-traumatic stress disorder) Family History Family History Father Colon cancer Mother No problems noted. Brother Autism Sister Bipolar disorder Maternal Aunt Breast cancer Social History Social History Household Members: None Housing: Homeless Housing Other:: 6 MONTHS HOMELESS Do you presently have visiting nurse or other home services: No Alcohol intake: unknown Patient Tobacco Use Status: Never used Tobacco Tobacco use type: Cigarette Cigarette Packs Per Day: 0.33 Cigarettes Per Day: 6.6 Years Smoked: 9 e-Cigarette/Vaping Use: Currently Using Second Hand Smoke Exposure: Yes Use of substances other than those prescribed or required for medical reasons: Yes Substance Use Type: Heroin Substance Use Frequency: Daily Advance Directives: Yes Advance Directives on File: Yes Advance Directives Date on File: 05/07/21 Patient : No service: No Current occupational status: unemployed Physical Exam ED Vital Signs: Vital Signs - 24 hr 11/04/21 14:28 11/04/21 14:34 11/04/21 15:52 Temperature 97.5 F Pulse Rate 133 H 133 H 124 H Respiratory Rate 26 H 34 H 22 H Blood Pressure 114/80 128/81 Pulse Oximetry 98 97 BMI result Body Mass Index 19.3 Const General: cooperative, no acute distress, alert and awake Nutritional Appearance: well nourished Orientation/consciousness: patient oriented x3 Limitations: no limitations HENMT Head: Yes normal to inspection and Yes atraumatic Ears: hearing grossly normal bilaterally and external ears normal General nose exam: Normal external nose present, no nasal discharge noted and no epistaxis Face and sinus: Yes normal facial exam, No abrasion and No laceration Mouth: Normal oral and palatal mucosa present, no drooling and no muffled voice Eyes General: appearance normal, both eyes and all related structures Periorbital: periorbital findings normal Eyelids: Yes eyelids normal Conjunctivae: conjunctivae normal Pupils: Equal, round and reactive pupils present EOM: EOMs intact bilaterally Neck Neck: Yes normal visual inspection, Yes full ROM and Yes no lymphadenopathy Chest Chest palpation & inspection: normal inspection of the chest Resp Effort & Inspection: audible wheezes, no cough, labored, respiratory distress, no retractions, tachypneic, no tripod positioning and no use of accessory muscles Auscultation: wheezes throughout Cardio Rate: tachycardic Rhythm: regular rhythm GI Inspection: Yes normal to inspection Neuro General: patient oriented x3 and moves all extremities Cranial nerves: Yes Equal, round and reactive pupils present Cognition (Neuro): normal cognition Motor exam (neuro): 5/5 motor strength present throughout Sensory Exam: Normal double simultaneous stimulation for sensation Coordination: [id number] test normal Extrem General: Yes normal to inspection, Yes full ROM and Yes capillary refill normal Psych Appearance: grossly normal Mental Status: mental status grossly normal Affect: normal affect Attitude: cooperative Thought process: Normal thought process present Thought content: Normal thought content present Insight: Good insight present (Psych) Course Reevaluation(s) Reevaluation #1: Patient's saturation upon presentation was 99% on 2L of NC Oxygen. Patient was placed on the monitor technician and I interpreted it at the bed side as sinus tachycardia. Time: 14:35 Reevaluation #2: Patient's breathing is significantly improved. Patient remains at 99% - 100% on 2L of Oxygen via NC. Time: 15:15 Medical Decision Making [facility] Narrative Medical decision making narrative: Patient is a 26 year old female presenting to the emergency department today with shortness of breath and possible opioid withdrawal. Patient's physical exam showed increased respiratory effort, mild respiratory distress, tachypneic, and tachycardic. Patient was able to speak well and was AOx4. Patient's blood work was unremarkable. Patient's COVID-19 rapid swab was negative. Patient's d-dimer was negative. Patient's EKG showed tachycardia but was otherwise unremarkable. Patient's chest x-ray showed no acute process. I explained my physical exam findings as well as all test results to the patient. I answered all questions asked by the patient. Patient received 2L of Oxygen via Nasal [place], IV Solu-medrol, IV magnesium, and an hour long duoneb which she stated helped her symptoms significantly. Upon reevaluation, the patient was breathing significantly better. Patient's oxygen saturation was 99-100% throughout her entire stay in the department. I spoke to Dr. Thomas, the hospitalist, who agreed to admission of this patient for an acute asthma exacerbation. Patient verbalized agreement and understanding with this treatment plan and admission. Differential Diagnosis Differential Diagnosis: asthma exacerbation, asthma attack, shortness of breath Medical Records Medical records reviewed: Yes I reviewed the patient's medical records. Lab Data Lab results reviewed: Yes I reviewed the patient's lab results. Result diagrams: 11/04/21 15:16 11/04/21 15:16 Labs: Lab Results 11/04/21 11/04/21 11/04/21 Range/Units 15:16 15:16 15:16 WBC 8.8 (4.8-10.8) X10*3/uL RBC 4.72 (4.20-5.50) X10*6/uL Hgb 12.8 (12.0-16.0) g/dl Hct 39.4 (37.0-47.0) % MCV 83.5 (80.0-98.0) fL MCH 27.1 (27.0-33.0) pg MCHC 32.5 (31.0-35.0) g/dl RDW 14.2 (11.0-16.0) % Plt Count 259 (160-400) X10*3/uL MPV 9.4 (9.4-12.3) fL Immature Gran % (Auto) 0.3 (0.0-0.4) % Neut % (Auto) 71.8 (45-73) % Lymph % (Auto) 17.9 L (20-40) % [place] % (Auto) 4.1 (2-11) % Eos % (Auto) 5.7 H (0-4) % Baso % (Auto) 0.2 (0-2) % Lymph # (Auto) 1.6 (1.2-4.9) X10*3/uL [place] # (Auto) 0.4 (0.1-1.2) X10*3/uL Eos # (Auto) 0.5 H (0.0-0.4) X10*3/uL Baso # (Auto) 0.0 (0.0-0.2) X10*3/uL Abs Immat Gran (auto) 0.03 (0.00-0.03) X10*3/uL Absolute Neuts (auto) 6.3 (2.0-8.3) x10*3/uL Absolute Nucleated RBC 0.000 (0.0-0.012) X10*3/uL Nucleated RBC % (auto) 0.0 (0.0-0.2) /100WBC D-Dimer High Sensitivty NG/ML Sodium 135 (135-145) mmol/L Potassium 4.3 (3.3-5.1) mmol/L Chloride 101 (96-108) mmol/L Carbon Dioxide 24 (22-29) mmol/L Anion Gap 14 (12-20) BUN 6 L (9-16) mg/dL Creatinine 0.64 (0.5-1.4) mg/dL Estim Creat Clear Calc 109.6 Estimated GFR > 60 Random Glucose 178 H (60-115) mg/dL Calcium 9.7 (8.4-10.2) mg/dL Magnesium 3.3 H (1.6-2.6) mg/dL Total Bilirubin 0.6 (0.0-1.0) mg/dL AST 21 (5-31) U/L ALT 11 (0-31) U/L Alkaline Phosphatase 88 (39-117) U/L Troponin I High Sens < 3.5 (<3.5-17.0) ng/L Total Protein 7.5 (6.5-8.0) g/dL Albumin 4.2 (3.5-5.0) g/dL COVID-19 (DAVID) (Negative) COVID-19 Clin Com Influenza Type A (TYSON) (Negative) Influenza Type B (TYSON) (Negative) Influenza A & B Note 11/04/21 11/04/21 11/04/21 Range/Units 15:16 15:18 15:18 WBC (4.8-10.8) X10*3/uL RBC (4.20-5.50) X10*6/uL Hgb (12.0-16.0) g/dl Hct (37.0-47.0) % MCV (80.0-98.0) fL MCH (27.0-33.0) pg MCHC (31.0-35.0) g/dl RDW (11.0-16.0) % Plt Count (160-400) X10*3/uL MPV (9.4-12.3) fL Immature Gran % (Auto) (0.0-0.4) % Neut % (Auto) (45-73) % Lymph % (Auto) (20-40) % [place] % (Auto) (2-11) % Eos % (Auto) (0-4) % Baso % (Auto) (0-2) % Lymph # (Auto) (1.2-4.9) X10*3/uL [place] # (Auto) (0.1-1.2) X10*3/uL Eos # (Auto) (0.0-0.4) X10*3/uL Baso # (Auto) (0.0-0.2) X10*3/uL Abs Immat Gran (auto) (0.00-0.03) X10*3/uL Absolute Neuts (auto) (2.0-8.3) x10*3/uL Absolute Nucleated RBC (0.0-0.012) X10*3/uL Nucleated RBC % (auto) (0.0-0.2) /100WBC D-Dimer High Sensitivty < 150 NG/ML Sodium (135-145) mmol/L Potassium (3.3-5.1) mmol/L Chloride (96-108) mmol/L Carbon Dioxide (22-29) mmol/L Anion Gap (12-20) BUN (9-16) mg/dL Creatinine (0.5-1.4) mg/dL Estim Creat Clear Calc Estimated GFR Random Glucose (60-115) mg/dL Calcium (8.4-10.2) mg/dL Magnesium (1.6-2.6) mg/dL Total Bilirubin (0.0-1.0) mg/dL AST (5-31) U/L ALT (0-31) U/L Alkaline Phosphatase (39-117) U/L Troponin I High Sens (<3.5-17.0) ng/L Total Protein (6.5-8.0) g/dL Albumin (3.5-5.0) g/dL COVID-19 (DAVID) Negative (Negative) COVID-19 Clin Com See Note Influenza Type A (TYSON) Negative (Negative) Influenza Type B (TYSON) Negative (Negative) Influenza A & B Note See Note Imaging Data Chest x-ray: Attestation: I personally reviewed and interpreted this imaging study as follows: My impression: Normal appearing chest x-ray. Radiologist's impression: EXAMINATION: XR CHEST CLINICAL INFORMATION: Shortness of breath COMPARISON: None TECHNIQUE: 2 views of the chest were obtained. FINDINGS: The lungs are well-inflated and clear of acute process. The heart size and pulmonary vascularity is normal. No gross bony abnormality seen. XR/XR chest 2V IMPRESSION: Unremarkable chest exam Dictated By: Mil Lockhart MD Signed By: Electronically signed by Mil Lockhart MD 11/04/21 9383 ECG Data Attestation: I personally reviewed and interpreted this ECG as follows: Prior ECG tracings: available for review Interpretation: Vent. Rate: 125 BPM ? ? Atrial Rate: 125 BPM P-R Int: 144 ms? QRS Dur: 076 ms QT Int: 306 ms ? ? ? P-R-T Axes: 084 071 083 degrees QTc Int: 441 ms ? Sinus tachycardia with Fusion complexes Right atrial enlargement When compared with ECG of 31-MAY-2021 11:20, Fusion complexes are now Present Critical Care Time Critical Care Time Critical Care Time: Yes Total Critical Care Time: 30 Attestation: I spent 30 minutes of Critical Care Time with this patient. This does not include time spent on separately reported billable procedures. Discharge Plan Discharge Patient Disposition: Admitted As Inpatient Prescriptions: No Action doxepin 10 mg capsule 10 mg PO BEDTIME 30 Days Qty: 30 0RF Vraylar 1.5 mg capsule 1.5 mg PO BEDTIME Qty: 30 0RF prazosin 2 mg capsule 2 mg PO BEDTIME 30 Days Qty: 30 1RF gabapentin 600 mg tablet 600 mg PO TID 30 Days Qty: 90 0RF albuterol sulfate 2.5 mg /3 mL (0.083 %) solution for nebulization 2.5 mg inhalation Q4-6H PRN (Reason: shortness of breath or wheezing) Qty: 75 0RF albuterol sulfate [ProAir HFA] 90 mcg/actuation HFA aerosol inhaler 2 puff INHALATION QID PRN (Reason: Dyspnea) 30 Days Qty: 8.5 1RF cyclobenzaprine 5 mg tablet 2.5 tab PO TID PRN (Reason: Muscle Spasm) 0RF risperidone 0.25 mg tablet 0.25 mg PO BEDTIME 0RF clonidine HCl 0.1 mg tablet 0.1 mg PO TID 0RF clonazepam 2 mg tablet 2 mg PO BID 0RF melatonin 10 mg tablet 10 mg PO BEDTIME 30 Days Qty: 30 0RF omeprazole 40 mg capsule,delayed release(DR/EC) 40 mg PO QAM 90 Days Qty: 90 0RF Print Language: Cook Islander
[2021-11-04 14:34] VITALS: PULSE 133; RESP 34; O2SAT 98
[2021-11-04] MEDS: Albuterol/Iprat 2.5/0.5MG 3 ML AMPUL.NEB INHALE ×2 (14:34)
[2021-11-04] MEDS: Magnesium Sulfate/H2O 2 GM/50 ML PIGGYBACK IV (14:36)
[2021-11-04] MEDS: LORazepam 2 MG/ML VIAL IVPUSH (14:37)
[2021-11-04] MEDS: methylPREDNISolone Sod Succ 125 MG/2 ML VIAL IVPUSH (14:41)
[2021-11-04 15:24] LABS: MANUAL DIFF FLAG NO
[2021-11-04 15:25] LABS: Basophils Percent Auto 0.2 % (0-2); Eosinophils Absolute Auto 0.5 X10*3/uL (0.0-0.4); Eosinophils Percent Auto 5.7 % (0-4); Hematocrit 39.4 % (37.0-47.0); Hemoglobin 12.8 g/dl (12.0-16.0); Imm Gran Abs Auto 0.03 X10*3/uL (0.00-0.03); Imm Gran Pct Auto 0.3 % (0.0-0.4); Lymphocytes Absolute Auto 1.6 X10*3/uL (1.2-4.9); Lymphocytes Percent Auto 17.9 % (20-40); Mean Corpuscular HGB Conc 32.5 g/dl (31.0-35.0); Mean Corpuscular Hemoglobin 27.1 pg (27.0-33.0); Mean Corpuscular Volume 83.5 fL (80.0-98.0); Mean Platelet Volume 9.4 fL (9.4-12.3); Monocytes Absolute Auto 0.4 X10*3/uL (0.1-1.2); Monocytes Percent Auto 4.1 % (2-11); Neutrophils Absolute Auto 6.3 x10*3/uL (2.0-8.3); Neutrophils Percent Auto 71.8 % (45-73); Platelet Count 259 X10*3/uL (160-400); Red Blood Count 4.72 X10*6/uL (4.20-5.50); Red Cell Distribution Width 14.2 % (11.0-16.0); White Blood Count 8.8 X10*3/uL (4.8-10.8)
[2021-11-04 15:41] LABS: D Dimer High Sensitivity < 150 NG/ML
[2021-11-04 15:41] LABS: COVID-19 Test Negative (Negative); IDNOW Serial# 16C4AD1C
[2021-11-04 15:43] LABS: Alanine Aminotransferase 11 U/L (0-31); Albumin Level 4.2 g/dL (3.5-5.0); Alkaline Phosphatase 88 U/L (39-117); Anion Gap 14 (12-20); Aspartate Amino Transferase 21 U/L (5-31); Bilirubin Total 0.6 mg/dL (0.0-1.0); Blood Urea Nitrogen 6 mg/dL (9-16); Calcium 9.7 mg/dL (8.4-10.2); Carbon Dioxide 24 mmol/L (22-29); Chloride 101 mmol/L (96-108); Creatinine Clr Calc Pharmacy 109.6; Estimated Glomerular Filt Rate > 60; Glucose Random 178 mg/dL (60-115); Magnesium 3.3 mg/dL (1.6-2.6); Potassium 4.3 mmol/L (3.3-5.1); Sodium 135 mmol/L (135-145); Total Protein 7.5 g/dL (6.5-8.0)
[2021-11-04 15:47] LABS: Troponin-I High Sensitivity < 3.5 ng/L (<3.5-17.0)
[2021-11-04 15:52] VITALS: BP 128/81; PULSE 124; RESP 22; O2SAT 97
--- NOTE | 2021-11-04 16:10 | PC.NURSE ---
pt very sleepy at this time, but arusable to touch and voice command, pt reports feeling a little better, respirations ranges anywhere from 26-20 sating at 98% on room air, still some audiable wheezing. pt reports joint pain 03/03. pt states last using methadone about 6hours ago, this rn is holding the methadone do to pt being drowsy/sleepy md aware.
[2021-11-04 16:22] LABS: Influenza A Negative (Negative); Influenza B2 Negative (Negative)
--- NOTE | 2021-11-04 16:30 | PHA.MEDREC ---
Pharmacy Consult ? Medication Reconciliation Pharmacy has completed the medication reconciliation.
--- NOTE | 2021-11-04 16:40 | PM.IMHP ---
History of Present Illness Date of Service: 11/04/21 Chief Complaint: Shortness of Breath Patient is a 26 year old female presenting to the emergency department today with shortness of breath and heroine withdrawl. Patient states that she has a history of asthma and has been having worsening shortness of breath over the last several days. In ED... 1hr neb/solumedrol/Ativan. Admission requested Review of Systems Review of Systems: Denies chest pain Admits to shortness of breath with minimal movement Denies nausea vomiting diarrhea Denies fever chills PMFSH Medical History Anxiety Asthma Asthma Bipolar disorder COVID-19 Crohn's disease Depression GERD (gastroesophageal reflux disease) Opioid use disorder Pneumonia due to COVID-19 virus PTSD (post-traumatic stress disorder) Family History Father Colon cancer Mother No problems noted. Brother Autism Sister Bipolar disorder Maternal Aunt Breast cancer Social History Household Members: None Housing: Homeless Housing Other:: 6 MONTHS HOMELESS Do you presently have visiting nurse or other home services: No Alcohol intake: unknown Patient Tobacco Use Status: Never used Tobacco Tobacco use type: Cigarette Cigarette Packs Per Day: 0.33 Cigarettes Per Day: 6.6 Years Smoked: 9 e-Cigarette/Vaping Use: Currently Using Second Hand Smoke Exposure: Yes Use of substances other than those prescribed or required for medical reasons: Yes Substance Use Type: Heroin Substance Use Frequency: Daily Advance Directives: Yes Advance Directives on File: Yes Advance Directives Date on File: 05/07/21 Patient : No service: No Current occupational status: unemployed Meds Allergies Allergy/AdvReac Type Severity Reaction Status Date / Time latex [LATEX] Allergy Intermediate RASH Verified 08/01/21 16:52 adhesive tape [ADHESIVE TAPE] AdvReac Intermediate RASH Verified 08/01/21 16:52 Active Medications: Current Medications Albuterol Sulfate (Albuterol Sulfate (0.083%) 2.5 Mg/3 Ml Vial.Neb) 2.5 mg INHALE Q4-6H PRN PRN Reason: shortness of breath or wheezing Cariprazine (Cariprazine Hcl 1.5 Mg Capsule) 1.5 mg PO BEDTIME SHEILA Clonidine HCl (Clonidine Hcl 0.1 Mg Tablet) 0.1 mg PO TID SHEILA; Protocol Cyclobenzaprine HCl (Cyclobenzaprine Hcl 5 Mg Tablet) 12.5 mg PO TID PRN PRN Reason: Muscle Spasm Doxepin HCl (Doxepin Hcl 10 Mg Capsule) 10 mg PO BEDTIME SHEILA Enoxaparin Sodium (Enoxaparin Sodium 40 Mg/0.4 Ml Syringe) 40 mg SUBCUT Q24H SHEILA Gabapentin (Gabapentin 600 Mg Tablet) 600 mg PO TID SHEILA Azithromycin 500 mg/ Sodium (Chloride) 250 mls @ 125 mls/hr IV DAILY SHEILA Methylprednisolone Sodium Succinate (Methylprednisolone Sod Succ 125 Mg/2 Ml Vial) 60 mg IVPUSH RQ6H ONE Stop: 11/04/21 16:37 Non-Formulary Medication (Melatonin) 10 mg PO BEDTIME SHEILA Omeprazole (Omeprazole 40 Mg Capsule.Dr) 40 mg PO QAM SHEILA Prazosin HCl (Prazosin Hcl 1 Mg Capsule) 2 mg PO BEDTIME SHEILA; Protocol Risperidone (Risperidone 0.25 Mg Tablet) 0.25 mg PO BEDTIME SHEILA Sodium Chloride (0.9 % Sodium Chloride Flush 3 Ml Syringe) 3 ml IVFLUSH QSHIFT SHEILA Home Medications Medication Instructions Recorded Confirmed Last Taken Type cyclobenzaprine 5 mg tablet 2.5 tab PO TID PRN 05/31/21 11/04/21 11/03/21 History clonazepam 2 mg tablet 2 mg PO BID 08/01/21 11/04/21 11/03/21 History clonidine HCl 0.1 mg tablet 0.1 mg PO TID 08/01/21 11/04/21 11/03/21 History risperidone 0.25 mg tablet 0.25 mg PO BEDTIME 08/01/21 11/04/21 11/03/21 History Physical Exam Vital Signs and Narrative: Vital Signs: Last Vital Signs Temp 97.5 F 11/04/21 14:28 Pulse 124 H 11/04/21 15:52 Resp 22 H 11/04/21 15:52 BP 128/81 11/04/21 15:52 Pulse Ox 97 11/04/21 15:52 BMI result Body Mass Index 19.3 Const: Other: Somnolent but arousable (IV Ativan) Resp: Other: Diminished all olivera with dense expiratory wheezes throughout. Scattered rhonchi that clear with cough Cardio: Other: Tachy; no S4; positive S1-S2; no S3 murmurs or gallops GI: Other: Soft nontender nondistended with normoactive bowel sounds Extrem: Other: No edema bilaterally Results Labs CBC and Chem 7: 11/04/21 15:16 11/04/21 15:16 Labs: Laboratory Results - last 24 hr 11/04/21 11/04/21 11/04/21 15:16 15:16 15:16 MCV 83.5 MCH 27.1 MCHC 32.5 RDW 14.2 Plt Count 259 MPV 9.4 Immature Gran % (Auto) 0.3 Neut % (Auto) 71.8 Lymph % (Auto) 17.9 L [place] % (Auto) 4.1 Eos % (Auto) 5.7 H Baso % (Auto) 0.2 Lymph # (Auto) 1.6 [place] # (Auto) 0.4 Eos # (Auto) 0.5 H Baso # (Auto) 0.0 Abs Immat Gran (auto) 0.03 Absolute Neuts (auto) 6.3 Absolute Nucleated RBC 0.000 Nucleated RBC % (auto) 0.0 D-Dimer High Sensitivty < 150 Anion Gap 14 Estim Creat Clear Calc 109.6 Estimated GFR > 60 Random Glucose 178 H Calcium 9.7 Magnesium 3.3 H Total Bilirubin 0.6 AST 21 ALT 11 Alkaline Phosphatase 88 Total Protein 7.5 Albumin 4.2 COVID-19 (DAVID) COVID-19 Clin Com Influenza Type A (TYSON) Influenza Type B (TYSON) Influenza A & B Note 11/04/21 11/04/21 15:18 15:18 MCV MCH MCHC RDW Plt Count MPV Immature Gran % (Auto) Neut % (Auto) Lymph % (Auto) [place] % (Auto) Eos % (Auto) Baso % (Auto) Lymph # (Auto) [place] # (Auto) Eos # (Auto) Baso # (Auto) Abs Immat Gran (auto) Absolute Neuts (auto) Absolute Nucleated RBC Nucleated RBC % (auto) D-Dimer High Sensitivty Anion Gap Estim Creat Clear Calc Estimated GFR Random Glucose Calcium Magnesium Total Bilirubin AST ALT Alkaline Phosphatase Total Protein Albumin COVID-19 (DAVID) Negative COVID-19 Clin Com See Note Influenza Type A (TYSON) Negative Influenza Type B (TYSON) Negative Influenza A & B Note See Note Imaging Radiologist's Impressions: Impressions Chest X-Ray 11/04/21 15:00 IMPRESSION: Unremarkable chest exam Assessment and Plan (1) Asthma exacerbation: Status: Acute (2) Opioid use disorder: Status: Acute Plan 26-year-old female with a known history of asthma in the backdrop of chronic heroin use presents with worsening shortness of breath that has progressed over the last 24 hours; cough is now productive. This shortness of breath is not responsive to usual inhalers. In the emergency room, she received an hour long Ventolin neb with slight improvement and breathing. She stated her last heroin use was 24 hours ago; she was given Ativan 2 mg IV and methadone was withheld at this time. She will be admitted for treatment of her asthma exacerbation- 1. Asthma exacerbation -Ventolin nebs q2 hrs prn -IV steroids/Azithro given sputum production -tele for continous O2 monitoring -supplemental O2 to maintain Sats >92% 2. Opiod Use Disorder -given Ativan in ER..somulent without signs of withdraw -Care Team Consult -hold Methadone dose for now(ordered in ER) Lovenox Full Code Requires inpatient hospitalization secondary to acute exacerbation and the need for IV steroids and aggressive pulmonary toilet; requires close O2 monitoring given tendency to require BiPAP when tires Quality Stroke Does the patient have a stroke diagnosis?: No VTE Prior VTE?: No VTE Risk Level:: Medical - moderate - high VTE Device Contraindication: Treatment Not Indicated VTE Drug Contraindication: N/A - Med Ordered
--- NOTE | 2021-11-04 16:59 | PC.NURSE ---
pt continuos on sleeping, noticeable tracheal pulling but pt reports feeling good, sating at 97%
[2021-11-04] MEDS: Azithromycin 500 MG in 0.9 % Sodium Chloride 250 ML 125 MG IV (17:04)
[2021-11-04 19:23] VITALS: PULSE 116
[2021-11-04] MEDS: Enoxaparin Sodium 40 MG/0.4 ML SYRINGE SUBCUT (19:37)
[2021-11-04] MEDS: methylPREDNISolone Sod Succ 125 MG/2 ML VIAL 60 MG IVPUSH (19:37)
[2021-11-04] MEDS: methADONE HCl 20 MG/2 ML ORAL.CONC 40 MG PO (19:38)
[2021-11-04 20:26] VITALS: BP 97/77; PULSE 110; RESP 14; TEMP 36.8; O2SAT 100
[2021-11-04 22:43] VITALS: BP 103/61; PULSE 100; RESP 16; O2SAT 97
[2021-11-04] MEDS: Cariprazine HCl 1.5 MG CAPSULE PO (22:46)
[2021-11-04] MEDS: Doxepin HCl 10 MG CAPSULE PO (22:47)
[2021-11-04] MEDS: cloNIDine HCL 0.1 MG TABLET PO (22:47)
[2021-11-04] MEDS: Gabapentin 600 MG TABLET PO (22:48)
[2021-11-04] MEDS: Melatonin 3 MG TABLET 9 MG PO (22:48)
[2021-11-04] MEDS: Prazosin HCL 1 MG CAPSULE 2 MG PO (22:48)
[2021-11-04] MEDS: risperiDONE 0.25 MG TABLET PO (22:48)
[2021-11-05] VITALS (10 sets, daily range): BP systolic 95–132; BP diastolic 52–68; PULSE 69–107; RESP 14–19; TEMP 36.7–37.5; O2SAT 95–99
[2021-11-05] MEDS: 0.9 % Sodium Chloride Flush 3 ML SYRINGE IVFLUSH ×4 (01:07→20:09)
[2021-11-05] MEDS: methylPREDNISolone Sod Succ 125 MG/2 ML VIAL 60 MG IVPUSH ×4 (01:09→20:08)
[2021-11-05] MEDS: clonazePAM 1 MG TABLET 2 MG PO ×4 (04:49→20:08)
[2021-11-05] MEDS: Omeprazole 40 MG CAPSULE.DR PO (06:11)
[2021-11-05 06:30] LABS: MANUAL DIFF FLAG NO
[2021-11-05 06:51] LABS: Alanine Aminotransferase 11 U/L (0-31); Alkaline Phosphatase 80 U/L (39-117); Anion Gap 13 (12-20); Aspartate Amino Transferase 19 U/L (5-31); Bilirubin Total 0.4 mg/dL (0.0-1.0); Blood Urea Nitrogen 13 mg/dL (9-16); Calcium 9.7 mg/dL (8.4-10.2); Carbon Dioxide 22 mmol/L (22-29); Chloride 103 mmol/L (96-108); Creatinine Clr Calc Pharmacy 116.9; Estimated Glomerular Filt Rate > 60; Glucose Fasting 130 mg/dL (60-99); Potassium 4.5 mmol/L (3.3-5.1); Sodium 133 mmol/L (135-145); Total Protein 7.2 g/dL (6.5-8.0)
[2021-11-05 06:54] LABS: Hematocrit 37.2 % (37.0-47.0); Imm Gran Abs Auto 0.01 X10*3/uL (0.00-0.03); Imm Gran Pct Auto 0.2 % (0.0-0.4); Lymphocytes Absolute Auto 0.9 X10*3/uL (1.2-4.9); Lymphocytes Percent Auto 16.4 % (20-40); Mean Corpuscular HGB Conc 32.3 g/dl (31.0-35.0); Mean Corpuscular Volume 83.8 fL (80.0-98.0); Mean Platelet Volume 9.8 fL (9.4-12.3); Monocytes Absolute Auto 0.1 X10*3/uL (0.1-1.2); Monocytes Percent Auto 1.6 % (2-11); Neutrophils Absolute Auto 4.7 x10*3/uL (2.0-8.3); Neutrophils Percent Auto 81.8 % (45-73); Platelet Count 275 X10*3/uL (160-400); Red Blood Count 4.44 X10*6/uL (4.20-5.50); Red Cell Distribution Width 14.4 % (11.0-16.0); White Blood Count 5.7 X10*3/uL (4.8-10.8)
[2021-11-05] MEDS: Gabapentin 600 MG TABLET PO ×3 (08:27→20:09)
--- NOTE | 2021-11-05 08:34 | PC.NURSE ---
pt access not patent, removed at this time and will replace.
--- NOTE | 2021-11-05 08:45 | P.CDIC_ITS ---
CDI Concurrent Query Documentation Clarification: PHYSICIAN'S DOCUMENTATION REQUEST Date of Query: 11/05/21 0846 Patient Name: Christa Daigle Admit Date: 11/04/21 Dear Doctor, A review of the medical record indicates additional documentation may be needed. Please review below and update the documentation accordingly. Clinical Indicators: Is there a diagnosis that correlates with these lab findings: Risk Factors/Clinical Indicators/Treatments Lab findings: potassium 5.6 H Please indicate in your progress notes if you are in agreement that the above diagnosis is valid for this patient: Hyperkalemia or other etiololgy * Yes, [ ] is a valid diagnosis for this patient * No, [ ] is a not a valid diagnosis for this patient * Other (please specify) * Unable to determine Use of terms such as suspected, likely, concern for, or probable (associated with a specific diagnosis that is being evaluated, monitored, or treated as if it exists) are acceptable and can be coded in the inpatient setting, when documented at the time of discharge. Thank you, Rose Mary Verma [facility] [place], [place] Extension: [phone] Please use your independent medical judgment in providing your response. THIS QUERY IS PART OF THE PERMANENT MEDICAL RECORD Provider Response: Other Other Diagnosis: No this is not a valid diagnosis this admission for this patient. Potassium of 5.6 was drawn on 06/12/2021
--- NOTE | 2021-11-05 08:56 | PC.NURSE ---
new 22G placed in the R hand. TC sent to Dr. Thomas for methadone. pt c/o withdrawal sx, she is also diaphoretic, tachycardic and restless at this time. administered her AM Klonopin per OCT. will monitor for effectiveness
--- NOTE | 2021-11-05 09:12 | MHC.RECOVRN ---
Briefly spoke with pt, reporting withdrawal symptoms and requesting methadone. Pt currently using 1+ bundles heroin daily, not linked to an [facility]. Discussed wtih Stephanie Murrieta APRN.
--- NOTE | 2021-11-05 09:49 | MHC.CM.PN ---
pt seen by care team pt requesting to be put on methadone queta pandya to see pt
--- NOTE | 2021-11-05 10:57 | PC.NURSE ---
report given to overflow pt to go to bed 4
--- NOTE | 2021-11-05 11:14 | PC.NURSE ---
Upon arrival to ED Overflow, pt was moved from stretcher to bed.Pt did not want to walk from stretcher to bed. Staff had to assist while moving, unopened 22G IV needle found in bed and removed from pt area.
--- NOTE | 2021-11-05 12:45 | PC.NURSE ---
Pt arrived from ED 2L NC O2sat 99% with mild labored breathing. Mild expiratory wheezing heard throughout lungs bilaterally. Pt resting in bed. No complaints at this time. PT on continuous telemetry. Will continue to monitor.
--- NOTE | 2021-11-05 15:39 | P.PNIM_ITS ---
Subjective Subjective Date of Service: 11/05/21 Review of Systems Denies chest pain Admits to shortness of breath with minimal movement Denies nausea vomiting diarrhea Denies fever chills Physical Exam Vital Signs: Vital Signs: Last Vital Signs Temp 98.3 F 11/04/21 20:26 Pulse 80 11/05/21 12:32 Resp 18 11/05/21 12:32 BP 112/62 11/05/21 12:32 Pulse Ox 99 11/05/21 12:32 BMI result Body Mass Index 19.3 Const: Other: Somnolent but arousable (IV Ativan) Resp: Other: Diminished all olivrea with dense expiratory wheezes throughout;improved Cardio: Other: Tachy; no S4; positive S1-S2; no S3 murmurs or gallops GI: Other: Soft nontender nondistended with normoactive bowel sounds Extrem: Other: No edema bilaterally Objective Data Active Medications Albuterol Sulfate (Albuterol Sulfate (0.083%) 2.5 Mg/3 Ml Vial.Neb) 2.5 mg INHALE Q4H PRN PRN Reason: shortness of breath or wheezing Cariprazine (Cariprazine Hcl 1.5 Mg Capsule) 1.5 mg PO BEDTIME [facility] Last Admin: 11/04/21 22:46 Dose: 1.5 mg Documented by: DIAMANTE Clonazepam (Clonazepam 1 Mg Tablet) 2 mg PO BID [facility] Last Admin: 11/05/21 08:27 Dose: 2 mg Documented by: GLEN Cyclobenzaprine HCl (Cyclobenzaprine Hcl 5 Mg Tablet) 12.5 mg PO TID PRN PRN Reason: Muscle Spasm Doxepin HCl (Doxepin Hcl 10 Mg Capsule) 10 mg PO BEDTIME [facility] Last Admin: 11/04/21 22:47 Dose: 10 mg Documented by: DIAMANTE Enoxaparin Sodium (Enoxaparin Sodium 40 Mg/0.4 Ml Syringe) 40 mg SUBCUT Q24H [facility] Last Admin: 11/04/21 19:37 Dose: 40 mg Documented by: DIAMANTE Gabapentin (Gabapentin 600 Mg Tablet) 600 mg PO TID [facility] Last Admin: 11/05/21 08:27 Dose: 600 mg Documented by: GLEN Azithromycin 500 mg/ Sodium (Chloride) 250 mls @ 125 mls/hr IV Q24H [facility] Last Infusion: 11/04/21 20:11 Dose: 0 mls/hr Documented by: DIAMANTE Melatonin (Melatonin 3 Mg Tablet) 9 mg PO BEDTIME [facility] Last Admin: 11/04/21 22:48 Dose: 9 mg Documented by: DIAMANTE Methylprednisolone Sodium Succinate (Methylprednisolone Sod Succ 125 Mg/2 Ml Vial) 60 mg IVPUSH Q6H [facility] Last Admin: 11/05/21 08:27 Dose: 60 mg Documented by: GLEN Omeprazole (Omeprazole 40 Mg Capsule.Dr) 40 mg PO DAILY@0630 [facility] Last Admin: 11/05/21 06:11 Dose: 40 mg Documented by: DIAMANTE Pharmacy Consult (Consult Rx Perform Med Rec) 1 each MISCELLANE ONCE PRN PRN Reason: Consult order Prazosin HCl (Prazosin Hcl 1 Mg Capsule) 2 mg PO BEDTIME [facility]; Protocol Last Admin: 11/04/21 22:48 Dose: 2 mg Documented by: DIAMANTE Risperidone (Risperidone 0.25 Mg Tablet) 0.25 mg PO BEDTIME [facility] Last Admin: 11/04/21 22:48 Dose: 0.25 mg Documented by: DIAMANTE Sodium Chloride (0.9 % Sodium Chloride Flush 3 Ml Syringe) 3 ml IVFLUSH QSHIFT [facility] Last Admin: 11/05/21 08:59 Dose: 3 ml Documented by: GLEN Labs CBC & Chem 7: 11/05/21 06:15 11/05/21 06:15 Labs: Laboratory Results - last 24 hr 11/04/21 11/04/21 11/04/21 15:16 15:16 15:18 MCV MCH MCHC RDW Plt Count MPV Immature Gran % (Auto) Neut % (Auto) Lymph % (Auto) [place] % (Auto) Eos % (Auto) Baso % (Auto) Lymph # (Auto) [place] # (Auto) Eos # (Auto) Baso # (Auto) Abs Immat Gran (auto) Absolute Neuts (auto) Absolute Nucleated RBC Nucleated RBC % (auto) D-Dimer High Sensitivty < 150 Anion Gap 14 Estim Creat Clear Calc 109.6 Estimated GFR > 60 Random Glucose 178 H Fasting Glucose Calcium 9.7 Magnesium 3.3 H Total Bilirubin 0.6 AST 21 ALT 11 Alkaline Phosphatase 88 Total Protein 7.5 Albumin 4.2 COVID-19 (DAVID) Negative COVID-19 Clin Com See Note Influenza Type A (TYSON) Influenza Type B (TYSON) Influenza A & B Note 11/04/21 11/05/21 11/05/21 15:18 06:15 06:15 MCV 83.8 MCH 27.0 MCHC 32.3 RDW 14.4 Plt Count 275 MPV 9.8 Immature Gran % (Auto) 0.2 Neut % (Auto) 81.8 H Lymph % (Auto) 16.4 L [place] % (Auto) 1.6 L Eos % (Auto) 0.0 Baso % (Auto) 0.0 Lymph # (Auto) 0.9 L [place] # (Auto) 0.1 Eos # (Auto) 0.0 Baso # (Auto) 0.0 Abs Immat Gran (auto) 0.01 Absolute Neuts (auto) 4.7 Absolute Nucleated RBC 0.000 Nucleated RBC % (auto) 0.0 D-Dimer High Sensitivty Anion Gap 13 Estim Creat Clear Calc 116.9 Estimated GFR > 60 Random Glucose Fasting Glucose 130 H Calcium 9.7 Magnesium Total Bilirubin 0.4 AST 19 ALT 11 Alkaline Phosphatase 80 Total Protein 7.2 Albumin 4.0 COVID-19 (DAVID) COVID-19 Clin Com Influenza Type A (TYSON) Negative Influenza Type B (TYSON) Negative Influenza A & B Note See Note Assessment and Plan (1) Asthma exacerbation: Status: Acute (2) Opioid use disorder: Status: Acute Plan 26-year-old female with a known history of asthma in the backdrop of chronic heroin use presents with worsening shortness of breath that has progressed over the last 24 hours; cough is now productive. This shortness of breath is not responsive to usual inhalers. In the emergency room, she received an hour long Ventolin neb with slight improvement and breathing. She stated her last heroin use was 24 hours ago; she was given Ativan 2 mg IV and methadone was withheld at this time. She will be admitted for treatment of her asthma exacerbation- 1. Asthma exacerbation -Ventolin nebs q2 hrs prn -IV steroids/Azithro given sputum production -tele for continous O2 monitoring -supplemental O2 to maintain Sats >92%..slowly improving 2. Opiod Use Disorder -given Ativan in ER..somulent without signs of withdraw -Care Team Consult -methadone as per care team Ute Full Code Inpatient hospitalization for 2 midnights going forward secondary to acute exacerbation and the need for IV steroids and aggressive pulmonary toilet; requires close O2 monitoring Quality Stroke Does the patient have a stroke diagnosis?: No VTE Prior VTE?: No VTE Risk Level:: Medical - moderate - high VTE Device Contraindication: Treatment Not Indicated VTE Drug Contraindication: N/A - Med Ordered
[2021-11-05] MEDS: Albuterol Sulfate (0.083%) 2.5 MG/3 ML VIAL.NEB INHALE (15:48)
[2021-11-05] MEDS: methADONE HCl 20 MG/2 ML ORAL.CONC 45 MG PO (15:53)
--- NOTE | 2021-11-05 16:06 | P.PNADD_ITS ---
Subjective Subjective Date of Service: 11/05/21 Reason For Visit: Asthma Exacerbation Interim History: Patient is a 26 year old female with OUD currently medically admitted with asthma exacerbation. Patient well known to this chief underwriter via previous admissions and outpatient treatment. Consult requested to manage opioid withdrawal sx. Patient recieved 40mg methadone in ED on 11/04. Patient seen X2 by this chief underwriter, earlier in the AM patient very sleepy and unable to fully participate in interview without falling back to sleep. Later this afternoon, patient awake, alert and able to participate in interview. She reports she is using about a bundle of heroin/fentanyl daily. She reports she had been on methadone up until about a week ago when she stopped going to the [facility]. She reports that her dose at that time was 85mg dally. Patient currently living at [place] [id number] with her boyfriend. She reports worrying about her boyfriend because she is hospitalized and he is out there sick . Attempted to reassure patient and offer strategies foe her boyfriend. Discussed restarting methadone-- patient stating she did not want to continue treatment once discharged, then later stating she did want to continue and wanted to stay with the same [facility]. Review of Systems Constitutional: Reports body ache(s), Reports chills and Reports malaise Psychiatric: Reports anxiety Mental Status Exam Mental Status Exam Patient Appearance: Appropriate Patient Orientation: Person, Place, Time and Situation Level of Consciousness: Awake and Appropriate Patient Behavior: Cooperative Mood Description: Anxious and Nervous ( about my boyfriend ) Affect Description: Anxious Speech Pattern: Clear Thought Process: Rumination Thought Content: positive for Circumstantial and positive for Goal Oriented Judgement: Fair Judgement and Insight: Diagnostics Vital Signs (24Hr): Vital Signs - 24 hr 11/04/21 20:26 11/04/21 22:43 11/05/21 00:33 Temperature 98.3 F Pulse Rate 110 H 100 94 Respiratory Rate 14 16 14 Blood Pressure 97/77 103/61 101/55 L Pulse Oximetry 100 97 97 11/05/21 04:46 11/05/21 06:00 11/05/21 07:01 Temperature Pulse Rate 90 100 94 Respiratory Rate 18 18 19 Blood Pressure 107/59 L 96/54 L 114/52 L Pulse Oximetry 96 97 95 11/05/21 12:32 11/05/21 15:41 11/05/21 15:50 Temperature 99.5 F Pulse Rate 80 105 H 107 H Respiratory Rate 18 18 18 Blood Pressure 112/62 132/68 Pulse Oximetry 99 98 BMI result Body Mass Index 19.3 Labs Results: 11/05/21 06:15 11/05/21 06:15 Labs: Laboratory Results - last 48 hr 11/04/21 11/04/21 11/04/21 15:16 15:16 15:16 WBC 8.8 RBC 4.72 Hgb 12.8 Hct 39.4 MCV 83.5 MCH 27.1 MCHC 32.5 RDW 14.2 Plt Count 259 MPV 9.4 Immature Gran % (Auto) 0.3 Neut % (Auto) 71.8 Lymph % (Auto) 17.9 L [place] % (Auto) 4.1 Eos % (Auto) 5.7 H Baso % (Auto) 0.2 Lymph # (Auto) 1.6 [place] # (Auto) 0.4 Eos # (Auto) 0.5 H Baso # (Auto) 0.0 Abs Immat Gran (auto) 0.03 Absolute Neuts (auto) 6.3 Absolute Nucleated RBC 0.000 Nucleated RBC % (auto) 0.0 D-Dimer High Sensitivty Sodium 135 Potassium 4.3 Chloride 101 Carbon Dioxide 24 Anion Gap 14 BUN 6 L Creatinine 0.64 Estim Creat Clear Calc 109.6 Estimated GFR > 60 Random Glucose 178 H Fasting Glucose Calcium 9.7 Magnesium 3.3 H Total Bilirubin 0.6 AST 21 ALT 11 Alkaline Phosphatase 88 Troponin I High Sens < 3.5 Total Protein 7.5 Albumin 4.2 COVID-19 (DAVID) COVID-19 Clin Com Influenza Type A (TYSON) Influenza Type B (TYSON) Influenza A & B Note 11/04/21 11/04/21 11/04/21 15:16 15:18 15:18 WBC RBC Hgb Hct MCV MCH MCHC RDW Plt Count MPV Immature Gran % (Auto) Neut % (Auto) Lymph % (Auto) [place] % (Auto) Eos % (Auto) Baso % (Auto) Lymph # (Auto) [place] # (Auto) Eos # (Auto) Baso # (Auto) Abs Immat Gran (auto) Absolute Neuts (auto) Absolute Nucleated RBC Nucleated RBC % (auto) D-Dimer High Sensitivty < 150 Sodium Potassium Chloride Carbon Dioxide Anion Gap BUN Creatinine Estim Creat Clear Calc Estimated GFR Random Glucose Fasting Glucose Calcium Magnesium Total Bilirubin AST ALT Alkaline Phosphatase Troponin I High Sens Total Protein Albumin COVID-19 (DAVID) Negative COVID-19 Clin Com See Note Influenza Type A (TYSON) Negative Influenza Type B (TYSON) Negative Influenza A & B Note See Note 11/05/21 11/05/21 06:15 06:15 WBC 5.7 RBC 4.44 Hgb 12.0 Hct 37.2 MCV 83.8 MCH 27.0 MCHC 32.3 RDW 14.4 Plt Count 275 MPV 9.8 Immature Gran % (Auto) 0.2 Neut % (Auto) 81.8 H Lymph % (Auto) 16.4 L [place] % (Auto) 1.6 L Eos % (Auto) 0.0 Baso % (Auto) 0.0 Lymph # (Auto) 0.9 L [place] # (Auto) 0.1 Eos # (Auto) 0.0 Baso # (Auto) 0.0 Abs Immat Gran (auto) 0.01 Absolute Neuts (auto) 4.7 Absolute Nucleated RBC 0.000 Nucleated RBC % (auto) 0.0 D-Dimer High Sensitivty Sodium 133 L Potassium 4.5 Chloride 103 Carbon Dioxide 22 Anion Gap 13 BUN 13 D Creatinine 0.60 Estim Creat Clear Calc 116.9 Estimated GFR > 60 Random Glucose Fasting Glucose 130 H Calcium 9.7 Magnesium Total Bilirubin 0.4 AST 19 ALT 11 Alkaline Phosphatase 80 Troponin I High Sens Total Protein 7.2 Albumin 4.0 COVID-19 (DAVID) COVID-19 Clin Com Influenza Type A (TYSON) Influenza Type B (TYSON) Influenza A & B Note Imaging Radiology Impressions: ITS Impressions Chest X-Ray 11/04/21 15:00 IMPRESSION: Unremarkable chest exam Medications Medications Current Medications Albuterol Sulfate (Albuterol Sulfate (0.083%) 2.5 Mg/3 Ml Vial.Neb) 2.5 mg INHALE Q4H PRN PRN Reason: shortness of breath or wheezing Last Admin: 11/05/21 15:48 Dose: 2.5 mg Documented by: Cariprazine (Cariprazine Hcl 1.5 Mg Capsule) 1.5 mg PO BEDTIME [facility] Last Admin: 11/04/21 22:46 Dose: 1.5 mg Documented by: Clonazepam (Clonazepam 1 Mg Tablet) 2 mg PO TID [facility] Last Admin: 11/05/21 16:02 Dose: 2 mg Documented by: Cyclobenzaprine HCl (Cyclobenzaprine Hcl 5 Mg Tablet) 12.5 mg PO TID PRN PRN Reason: Muscle Spasm Doxepin HCl (Doxepin Hcl 10 Mg Capsule) 10 mg PO BEDTIME [facility] Last Admin: 11/04/21 22:47 Dose: 10 mg Documented by: Enoxaparin Sodium (Enoxaparin Sodium 40 Mg/0.4 Ml Syringe) 40 mg SUBCUT Q24H [facility] Last Admin: 11/04/21 19:37 Dose: 40 mg Documented by: Gabapentin (Gabapentin 600 Mg Tablet) 600 mg PO TID [facility] Last Admin: 11/05/21 15:50 Dose: 600 mg Documented by: Azithromycin 500 mg/ Sodium (Chloride) 250 mls @ 125 mls/hr IV Q24H [facility] Last Infusion: 11/04/21 20:11 Dose: Infused Documented by: Melatonin (Melatonin 3 Mg Tablet) 9 mg PO BEDTIME [facility] Last Admin: 11/04/21 22:48 Dose: 9 mg Documented by: Methadone HCl (Methadone Hcl 20 Mg/2 Ml Oral.Conc) 50 mg PO ONCE ONE Stop: 11/06/21 09:01 Methylprednisolone Sodium Succinate (Methylprednisolone Sod Succ 125 Mg/2 Ml Vial) 60 mg IVPUSH Q6H [facility] Last Admin: 11/05/21 15:50 Dose: 60 mg Documented by: Omeprazole (Omeprazole 40 Mg Capsule.Dr) 40 mg PO DAILY@0630 [facility] Last Admin: 11/05/21 06:11 Dose: 40 mg Documented by: Pharmacy Consult (Consult Rx Perform Med Rec) 1 each MISCELLANE ONCE PRN PRN Reason: Consult order Prazosin HCl (Prazosin Hcl 1 Mg Capsule) 2 mg PO BEDTIME [facility]; Protocol Last Admin: 11/04/21 22:48 Dose: 2 mg Documented by: Risperidone (Risperidone 0.25 Mg Tablet) 0.25 mg PO BEDTIME [facility] Last Admin: 11/04/21 22:48 Dose: 0.25 mg Documented by: Sodium Chloride (0.9 % Sodium Chloride Flush 3 Ml Syringe) 3 ml IVFLUSH QSHIFT [facility] Last Admin: 11/05/21 15:50 Dose: 3 ml Documented by: Allergies Allergies Allergy/AdvReac Type Severity Reaction Status Date / Time latex [LATEX] Allergy Intermediate RASH Verified 08/01/21 16:52 adhesive tape [ADHESIVE TAPE] AdvReac Intermediate RASH Verified 08/01/21 16:52 Assessment & Plan Assessment & Plan (1) Opioid use disorder: Status: Acute Code(s): F11.99 - Opioid use, unspecified with unspecified opioid-induced disorder Assessment and Plan: methadone 45mg today * methadone 50mg tomorrow * RSRN to follow up with [facility] regarding patient resuming care there * Take home narcan and risk reduction discussion Plan * I spent __35____ minutes with the patient and/or on the patient floor today, greater than?50% of which was spent counseling/coordinating care.
[2021-11-05] MEDS: Azithromycin 500 MG in 0.9 % Sodium Chloride 250 ML 125 MG IV (18:08)
[2021-11-05] MEDS: Promethazine HCL 25 MG TABLET PO (18:09)
[2021-11-05] MEDS: Enoxaparin Sodium 40 MG/0.4 ML SYRINGE SUBCUT (18:13)
[2021-11-05] MEDS: Prazosin HCL 1 MG CAPSULE 2 MG PO (20:08)
[2021-11-05] MEDS: risperiDONE 0.25 MG TABLET PO (20:08)
[2021-11-05] MEDS: Cariprazine HCl 1.5 MG CAPSULE PO (20:08)
[2021-11-05] MEDS: Doxepin HCl 10 MG CAPSULE PO (20:09)
[2021-11-05] MEDS: Melatonin 3 MG TABLET 9 MG PO (20:09)
[2021-11-06] MEDS: Promethazine HCL 25 MG TABLET PO (02:38)
[2021-11-06] MEDS: methylPREDNISolone Sod Succ 125 MG/2 ML VIAL 60 MG IVPUSH ×3 (02:39→14:26)
[2021-11-06] MEDS: Cyclobenzaprine HCl 5 MG TABLET 12.5 MG PO (02:48)
[2021-11-06 02:49] VITALS: PULSE 75
[2021-11-06 03:17] VITALS: BP 109/58; PULSE 70; RESP 18; TEMP 36.1; O2SAT 96
[2021-11-06 06:00] VITALS: PULSE 71
[2021-11-06] MEDS: cloNIDine HCL 0.1 MG TABLET PO (06:10)
[2021-11-06] MEDS: Omeprazole 40 MG CAPSULE.DR PO (06:10)
[2021-11-06 06:58] LABS: Alanine Aminotransferase 11 U/L (0-31); Albumin Level 4.4 g/dL (3.5-5.0); Alkaline Phosphatase 76 U/L (39-117); Anion Gap 13 (12-20); Aspartate Amino Transferase 16 U/L (5-31); Bilirubin Total 0.3 mg/dL (0.0-1.0); Blood Urea Nitrogen 23 mg/dL (9-16); Calcium 9.9 mg/dL (8.4-10.2); Carbon Dioxide 24 mmol/L (22-29); Chloride 106 mmol/L (96-108); Creatinine Clr Calc Pharmacy 111.3; Estimated Glomerular Filt Rate > 60; Glucose Fasting 120 mg/dL (60-99); Potassium 4.5 mmol/L (3.3-5.1); Sodium 138 mmol/L (135-145); Total Protein 7.5 g/dL (6.5-8.0)
[2021-11-06 07:21] VITALS: BP 113/66; PULSE 63; RESP 16; TEMP 36.4; O2SAT 97
[2021-11-06] MEDS: clonazePAM 1 MG TABLET 2 MG PO ×2 (08:06→15:06)
[2021-11-06] MEDS: Gabapentin 600 MG TABLET PO ×2 (08:07→15:06)
[2021-11-06] MEDS: 0.9 % Sodium Chloride Flush 3 ML SYRINGE IVFLUSH (08:10)
[2021-11-06] MEDS: methADONE HCl 20 MG/2 ML ORAL.CONC 50 MG PO (08:10)
--- NOTE | 2021-11-06 11:22 | MHC.RECOVRN ---
[facility], pt became active in their system on 09/13/21, however, never received methadone.
[2021-11-06 12:00] VITALS: BP 106/55; PULSE 57; RESP 16; TEMP 35.7; O2SAT 95
[2021-11-06 15:07] VITALS: BP 116/72; PULSE 90; RESP 14; TEMP 36.5; O2SAT 95
--- NOTE | 2021-11-06 15:41 | PM.EVENT ---
Event Note Date of Service: 11/06/21 Event Note: Discharge Summary Patient left AMA despite warnings. Understood the risk Discharge diagnosis 1. Asthma exacerbation 2. Opioid use disorder
--- NOTE | 2021-11-06 15:48 | P.PNADD_ITS ---
Subjective Subjective Date of Service: 11/06/21 Reason For Visit: Asthma Exacerbation Interim History: Patient tolerating methadone. Received 50mg today. RSRN verified that patient was not enrolled with [facility]. Patient stating she still wishes to be referred there. Stating that she wants to discharge, no reason identified. Asking to have medications refilled. Still audibly wheezing and SOB when talking. Did not appear to be experiencing any withdrawal sx, and was not reporting any. Review of Systems Medical Review of Systems: unchanged Mental Status Exam Mental Status Exam Patient Appearance: Appropriate Patient Orientation: Person, Place, Time and Situation Level of Consciousness: Awake and Appropriate Patient Behavior: Cooperative Mood Description: Anxious and Nervous Affect Description: Anxious Speech Pattern: Clear Thought Process: Rumination Thought Content: positive for Circumstantial and positive for Goal Oriented Judgement: Fair Judgement and Insight: Diagnostics Vital Signs (24Hr): Vital Signs - 24 hr 11/05/21 15:50 11/05/21 20:00 11/05/21 23:16 Temperature 98.1 F 98.0 F Pulse Rate 107 H 92 69 Respiratory Rate 18 16 17 Blood Pressure 110/60 95/55 L Pulse Oximetry 97 99 11/06/21 03:17 11/06/21 07:21 11/06/21 12:00 Temperature 97 F 97.6 F 96.2 F L Pulse Rate 70 63 57 Respiratory Rate 18 16 16 Blood Pressure 109/58 L 113/66 106/55 L Pulse Oximetry 96 97 95 11/06/21 15:07 Temperature 97.7 F Pulse Rate 90 Respiratory Rate 14 Blood Pressure 116/72 Pulse Oximetry 95 BMI result Body Mass Index 19.3 Labs Results: 11/05/21 06:15 11/06/21 05:58 Labs: Laboratory Results - last 48 hr 11/04/21 11/05/21 11/05/21 15:18 06:15 06:15 WBC 5.7 RBC 4.44 Hgb 12.0 Hct 37.2 MCV 83.8 MCH 27.0 MCHC 32.3 RDW 14.4 Plt Count 275 MPV 9.8 Immature Gran % (Auto) 0.2 Neut % (Auto) 81.8 H Lymph % (Auto) 16.4 L [place] % (Auto) 1.6 L Eos % (Auto) 0.0 Baso % (Auto) 0.0 Lymph # (Auto) 0.9 L [place] # (Auto) 0.1 Eos # (Auto) 0.0 Baso # (Auto) 0.0 Abs Immat Gran (auto) 0.01 Absolute Neuts (auto) 4.7 Absolute Nucleated RBC 0.000 Nucleated RBC % (auto) 0.0 Sodium 133 L Potassium 4.5 Chloride 103 Carbon Dioxide 22 Anion Gap 13 BUN 13 D Creatinine 0.60 Estim Creat Clear Calc 116.9 Estimated GFR > 60 Fasting Glucose 130 H Calcium 9.7 Total Bilirubin 0.4 AST 19 ALT 11 Alkaline Phosphatase 80 Total Protein 7.2 Albumin 4.0 Influenza Type A (TYSON) Negative Influenza Type B (TYSON) Negative Influenza A & B Note See Note 11/06/21 05:58 WBC RBC Hgb Hct MCV MCH MCHC RDW Plt Count MPV Immature Gran % (Auto) Neut % (Auto) Lymph % (Auto) [place] % (Auto) Eos % (Auto) Baso % (Auto) Lymph # (Auto) [place] # (Auto) Eos # (Auto) Baso # (Auto) Abs Immat Gran (auto) Absolute Neuts (auto) Absolute Nucleated RBC Nucleated RBC % (auto) Sodium 138 Potassium 4.5 Chloride 106 Carbon Dioxide 24 Anion Gap 13 BUN 23 H D Creatinine 0.63 Estim Creat Clear Calc 111.3 Estimated GFR > 60 Fasting Glucose 120 H Calcium 9.9 Total Bilirubin 0.3 AST 16 ALT 11 Alkaline Phosphatase 76 Total Protein 7.5 Albumin 4.4 Influenza Type A (TYSON) Influenza Type B (TYSON) Influenza A & B Note Imaging Radiology Impressions: ITS Impressions Chest X-Ray 11/04/21 15:00 IMPRESSION: Unremarkable chest exam Medications Medications Current Medications Albuterol Sulfate (Albuterol Sulfate (0.083%) 2.5 Mg/3 Ml Vial.Neb) 2.5 mg INHALE Q4H PRN PRN Reason: shortness of breath or wheezing Last Admin: 11/05/21 15:48 Dose: 2.5 mg Documented by: Cariprazine (Cariprazine Hcl 1.5 Mg Capsule) 1.5 mg PO BEDTIME [facility] Last Admin: 11/05/21 20:08 Dose: 1.5 mg Documented by: Clonazepam (Clonazepam 1 Mg Tablet) 2 mg PO TID [facility] Last Admin: 11/06/21 15:06 Dose: 2 mg Documented by: Cyclobenzaprine HCl (Cyclobenzaprine Hcl 5 Mg Tablet) 12.5 mg PO TID PRN PRN Reason: Muscle Spasm Last Admin: 11/06/21 02:48 Dose: 12.5 mg Documented by: Doxepin HCl (Doxepin Hcl 10 Mg Capsule) 10 mg PO BEDTIME [facility] Last Admin: 11/05/21 20:09 Dose: 10 mg Documented by: Enoxaparin Sodium (Enoxaparin Sodium 40 Mg/0.4 Ml Syringe) 40 mg SUBCUT Q24H [facility] Last Admin: 11/05/21 18:13 Dose: 40 mg Documented by: Gabapentin (Gabapentin 600 Mg Tablet) 600 mg PO TID [facility] Last Admin: 11/06/21 15:06 Dose: 600 mg Documented by: Azithromycin 500 mg/ Sodium (Chloride) 250 mls @ 125 mls/hr IV Q24H [facility] Last Infusion: 11/05/21 20:23 Dose: Infused Documented by: Melatonin (Melatonin 3 Mg Tablet) 9 mg PO BEDTIME [facility] Last Admin: 11/05/21 20:09 Dose: 9 mg Documented by: Methylprednisolone Sodium Succinate (Methylprednisolone Sod Succ 125 Mg/2 Ml Vial) 60 mg IVPUSH Q6H [facility] Last Admin: 11/06/21 14:26 Dose: 60 mg Documented by: Omeprazole (Omeprazole 40 Mg Capsule.) 40 mg PO DAILY@0630 [facility] Last Admin: 11/06/21 06:10 Dose: 40 mg Documented by: Pharmacy Consult (Consult Rx Perform Med Rec) 1 each MISCELLANE ONCE PRN PRN Reason: Consult order Prazosin HCl (Prazosin Hcl 1 Mg Capsule) 2 mg PO BEDTIME [facility]; Protocol Last Admin: 11/05/21 20:08 Dose: 2 mg Documented by: Promethazine HCl (Promethazine Hcl 25 Mg Tablet) 25 mg PO Q6H PRN PRN Reason: Nausea Last Admin: 11/06/21 02:38 Dose: 25 mg Documented by: Risperidone (Risperidone 0.25 Mg Tablet) 0.25 mg PO BEDTIME [facility] Last Admin: 11/05/21 20:08 Dose: 0.25 mg Documented by: Sodium Chloride (0.9 % Sodium Chloride Flush 3 Ml Syringe) 3 ml IVFLUSH QSHIFT [facility] Last Admin: 11/06/21 08:10 Dose: 3 ml Documented by: Allergies Allergies Allergy/AdvReac Type Severity Reaction Status Date / Time latex [LATEX] Allergy Intermediate RASH Verified 08/01/21 16:52 adhesive tape [ADHESIVE TAPE] AdvReac Intermediate RASH Verified 08/01/21 16:52 Assessment & Plan Assessment & Plan (1) Opioid use disorder: Status: Acute Code(s): F11.99 - Opioid use, unspecified with unspecified opioid-induced disorder Assessment and Plan: * referral to [facility] completed by RSRN * take home narcan provided Plan * I spent _25 minutes with the patient and/or on the patient floor today, greater than?50% of which was spent counseling/coordinating care.
== END 2021-11-06 16:00 | disposition left against medical advice (07) | DRG 141 ==
LOC: HO.ED 15:12 → HO.EDOVER 16:40 → HO.IMC 11-05 14:06
PROVIDERS: Physician Assistant Medical; Admitting Provider Hospitalist; Emergency Provider Emergency Medicine; PCP Nurse Practitioner Family; Visit Provider Hospitalist
DX: J45.901 Unspecified asthma with (acute) exacerbation (principal); F11.23 Opioid dependence with withdrawal; K21.9 Gastro-esophageal reflux disease without esophagitis; Z20.822 Contact with and (suspected) exposure to COVID-19; Z86.16 Personal history of COVID-19; Z91.040 Latex allergy status; Z79.899 Other long term (current) drug therapy
CPT/HCPCS: 36415; 71046; 80053; 83735; 84484; 85025; 85379; 87502; 87635; 93005; 94640; 94644; 99219; 99285; J0456; J1650; J2060; J2930; J3475

== ENCOUNTER 2021-11-26 10:30 | Emergency (ER) | payer OTHER, SELFPAY | END 2021-11-26 11:54 | disposition left against medical advice (07) | PROVIDERS: Emergency Provider Emergency Medicine; PCP Nurse Practitioner Family | DX: J18.9 Pneumonia, unspecified organism (principal) ==

== ENCOUNTER 2021-11-29 19:30 | Inpatient (IN) | payer OTHER, SELFPAY ==
--- NOTE | ~2021-11-29 | XR_ITS ---
EXAMINATION: XR CHEST CLINICAL INFORMATION: Shortness of breath. COMPARISON: Chest radiograph dated from 11/04/2021. TECHNIQUE: AP view of the chest was obtained. FINDINGS: No significant abnormality is noted involving the heart, lungs, mediastinum, bony thorax or soft tissues. XR/XR chest 1V IMPRESSION: Unremarkable examination.
--- NOTE | 2021-11-29 19:31 | ECG_ITS ---
Test Reason : SOB Blood Pressure : / mmHG Vent. Rate : 121 BPM Atrial Rate : 121 BPM P-R Int : 156 ms QRS Dur : 082 ms QT Int : 312 ms P-R-T Axes : 072 068 071 degrees QTc Int : 443 ms Sinus tachycardia Possible Left atrial enlargement Borderline ECG When compared with ECG of 04-NOV-2021 14:35, Premature atrial complexes are no longer Present Referred By: Lila Fiore Electronically Signed By:SLICK YEE MD
[2021-11-29 19:33] VITALS: BP 126/80; BP 167/107; PULSE 135; PULSE 145; RESP 30; TEMP 37; O2SAT 89; O2SAT 99; BMI 18.8
[2021-11-29] MEDS: Albuterol Sulfate (0.083%) 2.5 MG/3 ML VIAL.NEB 10 MG INHALE (19:47)
[2021-11-29 19:48] VITALS: PULSE 138; RESP 24; O2SAT 97
[2021-11-29 20:01] LABS: MANUAL DIFF FLAG NO
[2021-11-29 20:02] LABS: Basophils Percent Auto 0.3 % (0-2); Eosinophils Percent Auto 9.2 % (0-4); Hematocrit 40.9 % (37.0-47.0); Hemoglobin 13.5 g/dl (12.0-16.0); Imm Gran Abs Auto 0.03 X10*3/uL (0.00-0.03); Imm Gran Pct Auto 0.3 % (0.0-0.4); Lymphocytes Absolute Auto 2.7 X10*3/uL (1.2-4.9); Lymphocytes Percent Auto 25.4 % (20-40); Mean Corpuscular Hemoglobin 27.9 pg (27.0-33.0); Mean Corpuscular Volume 84.5 fL (80.0-98.0); Mean Platelet Volume 9.7 fL (9.4-12.3); Monocytes Absolute Auto 0.7 X10*3/uL (0.1-1.2); Monocytes Percent Auto 6.9 % (2-11); Neutrophils Absolute Auto 6.2 x10*3/uL (2.0-8.3); Neutrophils Percent Auto 57.9 % (45-73); Platelet Count 321 X10*3/uL (160-400); Red Blood Count 4.84 X10*6/uL (4.20-5.50); Red Cell Distribution Width 14.3 % (11.0-16.0); White Blood Count 10.6 X10*3/uL (4.8-10.8)
[2021-11-29] MEDS: LORazepam 2 MG/ML VIAL 1 MG IVPUSH (20:06)
[2021-11-29] MEDS: 0.9 % Sodium Chloride 1,000 ML 999 ML IV ×2 (20:07→23:33)
[2021-11-29] MEDS: methylPREDNISolone Sod Succ 125 MG/2 ML VIAL IVPUSH (20:07)
[2021-11-29] MEDS: Magnesium Sulfate/H2O 2 GM/50 ML PIGGYBACK IV (20:07)
[2021-11-29 20:14] VITALS: BP 155/85; PULSE 139; RESP 24; O2SAT 99
[2021-11-29 20:16] LABS: Alanine Aminotransferase 22 U/L (0-31); Albumin Level 4.6 g/dL (3.5-5.0); Alkaline Phosphatase 95 U/L (39-117); Anion Gap 11 (12-20); Aspartate Amino Transferase 25 U/L (5-31); Bilirubin Total 0.3 mg/dL (0.0-1.0); Blood Urea Nitrogen 13 mg/dL (9-16); Calcium 9.6 mg/dL (8.4-10.2); Carbon Dioxide 27 mmol/L (22-29); Chloride 105 mmol/L (96-108); Creatinine Clr Calc Pharmacy 108.4; Estimated Glomerular Filt Rate > 60; Glucose Random 104 mg/dL (60-115); Magnesium 2.2 mg/dL (1.6-2.6); Potassium 4.6 mmol/L (3.3-5.1); Sodium 138 mmol/L (135-145); Total Protein 7.8 g/dL (6.5-8.0)
[2021-11-29 21:37] LABS: Influenza A PCR NEGATIVE (Negative); Influenza B PCR NEGATIVE (Negative); Resp Syncy Virus RNA Qual PCR NEGATIVE (Negative); SARS COV2 PCR INHOUSE NEGATIVE (Negative)
[2021-11-29 21:45] VITALS: PULSE 128; RESP 20; O2SAT 96
[2021-11-29] MEDS: Albuterol/Iprat 2.5/0.5MG 3 ML AMPUL.NEB INHALE (21:45)
--- NOTE | 2021-11-29 22:11 | ED.SOB ---
HPI - SOB/Dyspnea General Chief Complaint: Dyspnea Stated Complaint: SOB Time Seen by Provider: 11/29/21 19:31 Source: patient Mode of arrival: ambulatory Limitations: no limitations History of Present Illness HPI Narrative: Patient's history of severe asthma history of substance abuse came by ambulance for 2 days of increased shortness of breath patient was using DuoNeb at home without any improvement when patient arrived her pulse rate was saturating 90% on room air. And 95% on nebulizing treatment tachypneic with respiratory rate of 30 very anxious and able to speak full sentences and was using accessory respiratory muscles Related Data Home Medications Medication Instructions Recorded Confirmed cyclobenzaprine 5 mg tablet 2.5 tab PO TID PRN 05/31/21 11/29/21 clonazepam 2 mg tablet 2 mg PO BID 08/01/21 11/29/21 clonidine HCl 0.1 mg tablet 0.1 mg PO TID 08/01/21 11/29/21 risperidone 0.25 mg tablet 0.25 mg PO BEDTIME 08/01/21 11/29/21 clonazepam 2 mg tablet 1 tab PO BID PRN 11/05/21 11/29/21 Previous Rx's Medication Instructions Recorded doxepin 10 mg capsule 10 mg PO BEDTIME 30 Days #30 cap 05/08/21 cariprazine 1.5 mg capsule 1.5 mg PO BEDTIME #30 cap 07/11/21 (Vraylar) melatonin 10 mg tablet 10 mg PO BEDTIME 30 Days #30 tab 08/01/21 omeprazole 40 mg capsule,delayed 40 mg PO QAM 90 Days #90 cap 08/01/21 release prazosin 2 mg capsule 2 mg PO BEDTIME 30 Days #30 cap 09/18/21 albuterol sulfate 2.5 mg (3 mL) INHALATION Q4-6H PRN 10/09/21 #75 ml gabapentin 600 mg tablet 600 mg PO TID 30 Days #90 tab 11/19/21 albuterol sulfate 90 mcg/actuation 2 puff INHALATION QID PRN 30 Days 11/23/21 aerosol inhaler (ProAir HFA) #8.5 g Allergies Allergy/AdvReac Type Severity Reaction Status Date / Time latex [LATEX] Allergy Intermediate RASH Verified 08/01/21 16:52 adhesive tape [ADHESIVE TAPE] AdvReac Intermediate RASH Verified 08/01/21 16:52 Review of Systems Review of Systems: Yes all other systems are reviewed and are negative [facility] Past Medical History Medical History Anxiety Asthma Asthma Bipolar disorder COVID-19 Crohn's disease Depression GERD (gastroesophageal reflux disease) Opioid use disorder Pneumonia due to COVID-19 virus PTSD (post-traumatic stress disorder) Family History Family History Father Colon cancer Mother No problems noted. Brother Autism Sister Bipolar disorder Maternal Aunt Breast cancer Social History Social History Household Members: Significant Other Housing: Other Housing Other:: motel Do you presently have visiting nurse or other home services: No Alcohol intake: unknown Patient Tobacco Use Status: Never used Tobacco Tobacco use type: Cigarette Cigarette Packs Per Day: 0.33 Cigarettes Per Day: 6.6 Years Smoked: 9 e-Cigarette/Vaping Use: Currently Using Second Hand Smoke Exposure: Yes Substance Use Type: Heroin Advance Directives: Yes Advance Directives on File: Yes Advance Directives Date on File: 05/07/21 service: No Current occupational status: unemployed Physical Exam Vital Signs: Vital Signs: Last Vital Signs Temp 98.6 F 11/29/21 19:33 Pulse 116 H 11/29/21 22:28 Resp 16 11/29/21 22:28 BP 143/88 H 11/29/21 22:28 Pulse Ox 94 11/29/21 22:28 BMI result Body Mass Index 18.8 Appearance: Alert. Oriented X3. In significant respiratory distress and very anxious unable to speak full sentences Eyes: PERRLA, ENT: Pharynx normal. Oral Mucosa moist Neck: Normal inspection. Neck supple. CVS: Normal heart rate and rhythm. Pulses normal. Respiratory: Moderate respiratory distress Equal air entry bilateral, bilateral wheezing Abdomen: Soft and nontender. Bowel sounds are present, no mass palpable, Skin: Skin warm and dry. Normal skin color. Normal skin turgor. Extremities: No lower extremity edema. No calf tenderness Neuro: Oriented X 3. No motor deficit. MDM - SOB/Dyspnea MDM Narrative Medical decision making narrative: Patient with severe asthma with status asthmaticus received received 2 continues nebulizing treatment IV steroids is still tachypneic and wheezing will admit patient for status asthmaticus at this time patient is saturating 94% on room air, patient U tox positive for opiates Lab Data Attestation: I reviewed the patient's lab results. Result diagrams: 11/29/21 19:55 11/29/21 19:55 Labs: Lab Results 11/29/21 11/29/21 11/29/21 Range/Units 19:55 19:55 20:52 WBC 10.6 (4.8-10.8) X10*3/uL RBC 4.84 (4.20-5.50) X10*6/uL Hgb 13.5 (12.0-16.0) g/dl Hct 40.9 (37.0-47.0) % MCV 84.5 (80.0-98.0) fL MCH 27.9 (27.0-33.0) pg MCHC 33.0 (31.0-35.0) g/dl RDW 14.3 (11.0-16.0) % Plt Count 321 (160-400) X10*3/uL MPV 9.7 (9.4-12.3) fL Immature Gran % (Auto) 0.3 (0.0-0.4) % Neut % (Auto) 57.9 (45-73) % Lymph % (Auto) 25.4 (20-40) % [place] % (Auto) 6.9 (2-11) % Eos % (Auto) 9.2 H (0-4) % Baso % (Auto) 0.3 (0-2) % Lymph # (Auto) 2.7 (1.2-4.9) X10*3/uL [place] # (Auto) 0.7 (0.1-1.2) X10*3/uL Eos # (Auto) 1.0 H (0.0-0.4) X10*3/uL Baso # (Auto) 0.0 (0.0-0.2) X10*3/uL Abs Immat Gran (auto) 0.03 (0.00-0.03) X10*3/uL Absolute Neuts (auto) 6.2 (2.0-8.3) x10*3/uL Absolute Nucleated RBC 0.000 (0.0-0.012) X10*3/uL Nucleated RBC % (auto) 0.0 (0.0-0.2) /100WBC Sodium 138 (135-145) mmol/L Potassium 4.6 (3.3-5.1) mmol/L Chloride 105 (96-108) mmol/L Carbon Dioxide 27 (22-29) mmol/L Anion Gap 11 L (12-20) BUN 13 (9-16) mg/dL Creatinine 0.63 (0.5-1.4) mg/dL Estim Creat Clear Calc 108.4 Estimated GFR > 60 POC Glucose (60-115) mg/dL Random Glucose 104 (60-115) mg/dL Calcium 9.6 (8.4-10.2) mg/dL Magnesium 2.2 (1.6-2.6) mg/dL Total Bilirubin 0.3 (0.0-1.0) mg/dL AST 25 D (5-31) U/L ALT 22 (0-31) U/L Alkaline Phosphatase 95 D (39-117) U/L Total Protein 7.8 (6.5-8.0) g/dL Albumin 4.6 (3.5-5.0) g/dL Urine Color Urine Appearance Urine pH (5.0-8.0) Ur Specific [place] (1.005-1.025) Urine Protein (NEG-TRACE) MG/DL Urine Glucose (UA) (NEG) MG/DL Urine Ketones (NEG) MG/DL Urine Blood (NEG) Urine Nitrite (NEG) Ur Leukocyte Esterase (NEG) Urine Opiates Screen (Not Detect) Urine Fentanyl Screen (Not Detect) Ur Barbiturates Screen (Not Detect) Ur Phencyclidine Scrn (Not Detect) Ur Amphetamines Screen (Not Detect) U Benzodiazepines Scrn (Not Detect) Urine Cocaine Screen (Not Detect) U Marijuana (THC) Screen (Not Detect) Influenza Type A (PCR) NEGATIVE (Negative) Influenza Type B (PCR) NEGATIVE (Negative) RSV RNA Qual (PCR) NEGATIVE (Negative) SARS-CoV-2 RNA (RT-PCR) NEGATIVE (Negative) 11/29/21 11/29/21 11/29/21 Range/Units 22:44 22:44 23:21 WBC (4.8-10.8) X10*3/uL RBC (4.20-5.50) X10*6/uL Hgb (12.0-16.0) g/dl Hct (37.0-47.0) % MCV (80.0-98.0) fL MCH (27.0-33.0) pg MCHC (31.0-35.0) g/dl RDW (11.0-16.0) % Plt Count (160-400) X10*3/uL MPV (9.4-12.3) fL Immature Gran % (Auto) (0.0-0.4) % Neut % (Auto) (45-73) % Lymph % (Auto) (20-40) % [place] % (Auto) (2-11) % Eos % (Auto) (0-4) % Baso % (Auto) (0-2) % Lymph # (Auto) (1.2-4.9) X10*3/uL [place] # (Auto) (0.1-1.2) X10*3/uL Eos # (Auto) (0.0-0.4) X10*3/uL Baso # (Auto) (0.0-0.2) X10*3/uL Abs Immat Gran (auto) (0.00-0.03) X10*3/uL Absolute Neuts (auto) (2.0-8.3) x10*3/uL Absolute Nucleated RBC (0.0-0.012) X10*3/uL Nucleated RBC % (auto) (0.0-0.2) /100WBC Sodium (135-145) mmol/L Potassium (3.3-5.1) mmol/L Chloride (96-108) mmol/L Carbon Dioxide (22-29) mmol/L Anion Gap (12-20) BUN (9-16) mg/dL Creatinine (0.5-1.4) mg/dL Estim Creat Clear Calc Estimated GFR POC Glucose 188 H (60-115) mg/dL Random Glucose (60-115) mg/dL Calcium (8.4-10.2) mg/dL Magnesium (1.6-2.6) mg/dL Total Bilirubin (0.0-1.0) mg/dL AST (5-31) U/L ALT (0-31) U/L Alkaline Phosphatase (39-117) U/L Total Protein (6.5-8.0) g/dL Albumin (3.5-5.0) g/dL Urine Color YELLOW Urine Appearance CLEAR Urine pH 5.5 (5.0-8.0) Ur Specific [place] >= 1.030 H (1.005-1.025) Urine Protein NEG (NEG-TRACE) MG/DL Urine Glucose (UA) NEG (NEG) MG/DL Urine Ketones NEG (NEG) MG/DL Urine Blood NEG (NEG) Urine Nitrite NEG (NEG) Ur Leukocyte Esterase NEG (NEG) Urine Opiates Screen POSITIVE H (Not Detect) Urine Fentanyl Screen POSITIVE H (Not Detect) Ur Barbiturates Screen Not Detected (Not Detect) Ur Phencyclidine Scrn Not Detected (Not Detect) Ur Amphetamines Screen Not Detected (Not Detect) U Benzodiazepines Scrn Not Detected (Not Detect) Urine Cocaine Screen Not Detected (Not Detect) U Marijuana (THC) Screen Not Detected (Not Detect) Influenza Type A (PCR) (Negative) Influenza Type B (PCR) (Negative) RSV RNA Qual (PCR) (Negative) SARS-CoV-2 RNA (RT-PCR) (Negative) Critical Care Time Critical Care Time Critical Care Time: Yes Total Critical Care Time: 65 Attestation: I spent 65 minutes of critical care, with interventions, assessments, and speaking to patient, Discharge Plan Discharge Clinical Impression: Asthma with status asthmaticus Patient Disposition: Admitted As Inpatient
[2021-11-29 22:28] VITALS: BP 143/88; PULSE 116; RESP 16; O2SAT 94
[2021-11-29] MEDS: clonazePAM 1 MG TABLET 2 MG PO (22:36)
[2021-11-29 22:51] LABS: Appearance Urine CLEAR; Color Urine YELLOW; Glucose Urine UA NEG (NEG); Leukocyte Esterase Urine NEG (NEG); Nitrite Urine NEG (NEG); PH 5.5 (5.0-8.0); Specific Gravity - Urine >= 1.030 (1.005-1.025); Urine Blood NEG (NEG); Urine Ketones NEG (NEG); Urine Protein NEG (NEG-TRACE)
[2021-11-29 23:05] LABS: Amphetamine Screen Urine Not Detected (Not Detect); Barbiturates, Urine Not Detected (Not Detect); Benzodiazepines Screen Urine Not Detected (Not Detect); Cannabinoid Screen Urine Not Detected (Not Detect); Cocaine Screen Urine Not Detected (Not Detect); Fentanyl, urine POSITIVE (Not Detect); Opiate Screen Urine POSITIVE (Not Detect); Phencyclidine Screen Urine Not Detected (Not Detect)
[2021-11-29 23:25] LABS: Glucose, Whole Blood 188 mg/dL (60-115)
--- NOTE | 2021-11-30 00:45 | P.HPHOSP_ITS ---
History of Present Illness Date of Service: 11/30/21 Chief Complaint: SOB A 6-year-old female with past medical history of anxiety, asthma, bipolar disorder, Crohn's disease, depression, GERD, opioid use disorder, PTSD, who presents to the hospital with shortness of breath and cough for the past 2 days. Patient is complaining of a cough, sputum production, no chest pain, she is feeling feverish with chills, reports that she just generally not feeling well. Has no chest pain, reports nausea and vomiting, abdominal pain, diarrhea. Denies having any urinary symptoms and no lower extremity edema. Next on arrival to the ED vitals are significant for heart rate of 135, respiratory rate of 30, blood pressure stable, satting 99% on room air Labs reviewed unremarkable UA negative, UDS positive for opioids and fentanyl. Chest x-ray negative, influenza a COVID-19 negative. Patient received multiple rounds of breathing treatments as well as magnesium with no improvement in her symptoms therefore she will be admitted for further management Review of Systems Review of Systems: Yes all other systems are reviewed and are negative [facility] Medical History Anxiety Asthma Asthma Bipolar disorder COVID-19 Crohn's disease Depression GERD (gastroesophageal reflux disease) Opioid use disorder Pneumonia due to COVID-19 virus PTSD (post-traumatic stress disorder) Family History Father Colon cancer Mother No problems noted. Brother Autism Sister Bipolar disorder Maternal Aunt Breast cancer Social History Household Members: Significant Other Housing: Other Housing Other:: [facility] Do you presently have visiting nurse or other home services: No Alcohol intake: unknown Patient Tobacco Use Status: Never used Tobacco Tobacco use type: Cigarette Cigarette Packs Per Day: 0.33 Cigarettes Per Day: 6.6 Years Smoked: 9 e-Cigarette/Vaping Use: Currently Using Second Hand Smoke Exposure: Yes Substance Use Type: Heroin Advance Directives: Yes Advance Directives on File: Yes Advance Directives Date on File: 05/07/21 service: No Current occupational status: unemployed Meds Allergies Allergy/AdvReac Type Severity Reaction Status Date / Time latex [LATEX] Allergy Intermediate RASH Verified 08/01/21 16:52 adhesive tape [ADHESIVE TAPE] AdvReac Intermediate RASH Verified 08/01/21 16:52 Home Medications Medication Instructions Recorded Confirmed Last Taken Type cyclobenzaprine 5 mg tablet 2.5 tab PO TID PRN 05/31/21 11/29/21 11/03/21 History clonazepam 2 mg tablet 2 mg PO BID 08/01/21 11/29/21 11/03/21 History clonidine HCl 0.1 mg tablet 0.1 mg PO TID 08/01/21 11/29/21 11/03/21 History risperidone 0.25 mg tablet 0.25 mg PO BEDTIME 08/01/21 11/29/21 11/03/21 History clonazepam 2 mg tablet 1 tab PO BID PRN 11/05/21 11/29/21 Unknown History Physical Exam Vital Signs and Narrative: Vital Signs: Last Vital Signs Temp 98.6 F 11/29/21 19:33 Pulse 116 H 11/29/21 22:28 Resp 16 11/29/21 22:28 BP 143/88 H 11/29/21 22:28 Pulse Ox 94 11/29/21 22:28 BMI result Body Mass Index 18.8 Const: General: cooperative and no acute distress Orientation/consciousnes s: patient oriented x3 Eyes: General: appearance normal, both eyes and all related structures Pupils: Equal, round and reactive pupils present Resp: Other: expiratory wheezing Effort & Inspection: normal respiratory effort Cardio: Rate: regular rate Rhythm: regular rhythm GI: Palpation (GI): Soft to palpation Auscultation: normal bowel sounds Skin: General skin exam: no rashes or lesions noted Neuro: General: patient oriented x3 Cranial nerves: Yes Equal, round and reactive pupils present Cognition (Neuro): normal cognition Extrem: General: Yes normal to inspection and Yes no pedal edema Results Labs CBC and Chem 7: 11/29/21 19:55 11/29/21 19:55 Labs: Laboratory Results - last 24 hr 11/29/21 11/29/21 11/29/21 19:55 19:55 20:52 MCV 84.5 MCH 27.9 MCHC 33.0 RDW 14.3 Plt Count 321 MPV 9.7 Immature Gran % (Auto) 0.3 Neut % (Auto) 57.9 Lymph % (Auto) 25.4 [place] % (Auto) 6.9 Eos % (Auto) 9.2 H Baso % (Auto) 0.3 Lymph # (Auto) 2.7 [place] # (Auto) 0.7 Eos # (Auto) 1.0 H Baso # (Auto) 0.0 Abs Immat Gran (auto) 0.03 Absolute Neuts (auto) 6.2 Absolute Nucleated RBC 0.000 Nucleated RBC % (auto) 0.0 Anion Gap 11 L Estim Creat Clear Calc 108.4 Estimated GFR > 60 POC Glucose Random Glucose 104 Calcium 9.6 Magnesium 2.2 Total Bilirubin 0.3 AST 25 D ALT 22 Alkaline Phosphatase 95 D Total Protein 7.8 Albumin 4.6 Urine Color Urine Appearance Urine pH Ur Specific [place] Urine Protein Urine Glucose (UA) Urine Ketones Urine Blood Urine Nitrite Ur Leukocyte Esterase Urine Opiates Screen Urine Fentanyl Screen Ur Barbiturates Screen Ur Phencyclidine Scrn Ur Amphetamines Screen U Benzodiazepines Scrn Urine Cocaine Screen U Marijuana (THC) Screen Influenza Type A (PCR) NEGATIVE Influenza Type B (PCR) NEGATIVE RSV RNA Qual (PCR) NEGATIVE SARS-CoV-2 RNA (RT-PCR) NEGATIVE 11/29/21 11/29/21 11/29/21 22:44 22:44 23:21 MCV MCH MCHC RDW Plt Count MPV Immature Gran % (Auto) Neut % (Auto) Lymph % (Auto) [place] % (Auto) Eos % (Auto) Baso % (Auto) Lymph # (Auto) [place] # (Auto) Eos # (Auto) Baso # (Auto) Abs Immat Gran (auto) Absolute Neuts (auto) Absolute Nucleated RBC Nucleated RBC % (auto) Anion Gap Estim Creat Clear Calc Estimated GFR POC Glucose 188 H Random Glucose Calcium Magnesium Total Bilirubin AST ALT Alkaline Phosphatase Total Protein Albumin Urine Color YELLOW Urine Appearance CLEAR Urine pH 5.5 Ur Specific [place] >= 1.030 H Urine Protein NEG Urine Glucose (UA) NEG Urine Ketones NEG Urine Blood NEG Urine Nitrite NEG Ur Leukocyte Esterase NEG Urine Opiates Screen POSITIVE H Urine Fentanyl Screen POSITIVE H Ur Barbiturates Screen Not Detected Ur Phencyclidine Scrn Not Detected Ur Amphetamines Screen Not Detected U Benzodiazepines Scrn Not Detected Urine Cocaine Screen Not Detected U Marijuana (THC) Screen Not Detected Influenza Type A (PCR) Influenza Type B (PCR) RSV RNA Qual (PCR) SARS-CoV-2 RNA (RT-PCR) Imaging Radiologist's Impressions: Impressions Chest X-Ray 11/29/21 20:01 IMPRESSION: Unremarkable examination. Assessment and Plan (1) Asthma with status asthmaticus: Status: Acute (2) HTN (hypertension): Status: Acute Plan 26-year-old female with history of asthma who is homeless currently presents to the hospital with asthma exasperation # acute asthma exacerbation - Solu-Medrol, DuoNeb p.r.n. as well as scheduled - follow respiratory status # elevated blood pressure - likely secondary to respiratory distress - monitor - continue clonidine # opioid use disorder - monitor for withdrawals # mood disorder - continue home medications DVT ppx: lovenox given her lack of response to breathing treatments, patient will require an inpatient admission for further management of her asthma and close [place] Quality Stroke Does the patient have a stroke diagnosis?: No VTE Prior VTE?: No VTE Risk Level:: Medical - moderate - high VTE Device Contraindication: Treatment Not Indicated VTE Drug Contraindication: N/A - Med Ordered
--- NOTE | 2021-11-30 01:35 | PC.NURSE ---
This RN assumed care upon patient's arrival. Patient was treated and when patient was set to be D/C'ed, RN noticed that she was pale and diaphoretic, patient claims I don't feel right , BP 101/56, P 113, O2 95% RA, POC 188. notified, patient is to be admitted
[2021-11-30] MEDS: methylPREDNISolone Sod Succ 40 MG/ML VIAL IVPUSH (02:00)
[2021-11-30 02:03] VITALS: BP 121/74; PULSE 105; RESP 22; TEMP 37.1; O2SAT 97
--- NOTE | 2021-11-30 02:03 | PC.NURSE ---
pt oob with assist to rest room. Pt became sob. Called respiratory for treatment. pt is refusing breathing treatment . Medicated per Oct. Notified LAYLA acosta.
[2021-11-30] MEDS: Albuterol/Iprat 2.5/0.5MG 3 ML AMPUL.NEB INHALE (02:19)
[2021-11-30 02:20] VITALS: PULSE 105; RESP 18; O2SAT 96
[2021-11-30 06:14] VITALS: BP 94/41; PULSE 95; RESP 21; O2SAT 93
[2021-11-30 07:07] LABS: MANUAL DIFF FLAG NO
[2021-11-30 07:15] LABS: Hematocrit 34.4 % (37.0-47.0); Hemoglobin 11.2 g/dl (12.0-16.0); Imm Gran Abs Auto 0.01 X10*3/uL (0.00-0.03); Imm Gran Pct Auto 0.2 % (0.0-0.4); Lymphocytes Absolute Auto 0.6 X10*3/uL (1.2-4.9); Lymphocytes Percent Auto 11.6 % (20-40); Mean Corpuscular HGB Conc 32.6 g/dl (31.0-35.0); Mean Corpuscular Hemoglobin 27.2 pg (27.0-33.0); Mean Corpuscular Volume 83.5 fL (80.0-98.0); Monocytes Absolute Auto 0.1 X10*3/uL (0.1-1.2); Monocytes Percent Auto 1.3 % (2-11); Neutrophils Absolute Auto 4.7 x10*3/uL (2.0-8.3); Neutrophils Percent Auto 86.9 % (45-73); Platelet Count 277 X10*3/uL (160-400); Red Blood Count 4.12 X10*6/uL (4.20-5.50); Red Cell Distribution Width 14.1 % (11.0-16.0); White Blood Count 5.4 X10*3/uL (4.8-10.8)
[2021-11-30] MEDS: Omeprazole 40 MG CAPSULE.DR PO (07:25)
[2021-11-30] MEDS: clonazePAM 1 MG TABLET 2 MG PO ×2 (07:25→09:40)
[2021-11-30 07:29] LABS: Anion Gap 11 (12-20); Blood Urea Nitrogen 7 mg/dL (9-16); Calcium 9.3 mg/dL (8.4-10.2); Carbon Dioxide 21 mmol/L (22-29); Chloride 107 mmol/L (96-108); Creatinine Clr Calc Pharmacy 119.9; Estimated Glomerular Filt Rate > 60; Glucose Random 143 mg/dL (60-115); Potassium 4.4 mmol/L (3.3-5.1); Sodium 135 mmol/L (135-145)
--- NOTE | 2021-11-30 07:53 | PC.NURSE ---
attempting to verify pts methadone dose through [facility] in [place]. Eva CASILLAS placing call.
--- NOTE | 2021-11-30 08:44 | PHA.MEDREC ---
Pharmacy Consult ? Medication Reconciliation Pharmacy has completed the medication reconciliation. Pt stated that she uses clonazepam TID and then PRN, however based on claim history and PDMP it seems that the rx should be BID PRN; checked PDMP and pt uses multiple [facility] pharmacies to fill clonazepam rx. Sri Myers, PharmD
[2021-11-30] MEDS: cloNIDine HCL 0.1 MG TABLET PO (09:39)
[2021-11-30] MEDS: Gabapentin 600 MG TABLET PO (09:40)
[2021-11-30 09:41] VITALS: BP 131/82; PULSE 102; RESP 20; O2SAT 96
--- NOTE | 2021-11-30 09:50 | PC.NURSE ---
Addendum entered by Marilia Goldberg RN 11/30/21 09:52: late entry from 09 Original Note: pt standing in curtain of her room. informed t/w that she thinks it would be best if she just went to the clinic and got her methadone dose . t/w educated pt on risks of leaving against medical advice including .. pt had changed into her own belongings, pulled off her cardiac leads and pulled out her IV. T/w notified Danielle GONZALEZ of pts concerns regarding going into withdrawal and not having her methadone dose. pt and Courtney GONZALEZ notified that the methadone dose was in process of being verified. encouraged pt to stay
--- NOTE | 2021-11-30 09:52 | PC.NURSE ---
asked Eva CASILLAS about progress of methadone done verification, she informed tw that it was just verified and will be available shortly. t/w went to inform the pt of this and the pt was not in her room. several staf witnessed the pt walking toward room 20 toward the lobby and exit. registration identified that they saw the pt walk out of the hospital. pt did not sign a AMA form, two staff witness signatures were obtained and Danielle GONZALEZ was notified of pts leaving.
--- NOTE | 2021-11-30 09:58 | PM.EVENT ---
Event Note Date of Service: 11/30/21 Event Note: Patient seen and evaluated this am in follow up for asthma. She was awake, alert at the time of her exam. She was breathing easy and able to speak in complete sentences. A short time later her nurse reported that she wanted to leave AMA. She left before I was able to see her again Discharge diagnosis: Acute asthma exacerbation Opioid use disorder
--- NOTE | 2021-11-30 10:05 | MHC.RECOVRN ---
Prior to pt leaving AMA, t/w spoke with pt in ED 17. Pt reports doing well and has obtained housing through the [employer] program. Pt reports living in a condo in [place] and going to [facility] daily, receiving 60 mg methadone. Pt reports last substance use was a week ago. Pt reports boyfriend is living at the condo and has obtained employment. Pt reports difficulty breathing and states I'm in a wheelchair now. I can barely make it to the bathroom from my bedroom. T/w was to f/u with pt later today, however, pt decided to leave the hospital.
--- NOTE | 2021-11-30 11:18 | MHC.CM.PN ---
PT LEFT AMA PRIOR TO BEING SEEN BY CM
== END 2021-11-30 12:27 | disposition left against medical advice (07) | DRG 141 ==
LOC: HO.ED 23:32 → HO.EDOVER 11-30 00:47
PROVIDERS: Physician Assistant; Admitting Provider Internal Medicine; Emergency Provider Internal Medicine; Visit Provider Physician Assistant Medical
DX: J45.902 Unspecified asthma with status asthmaticus (principal); F11.20 Opioid dependence, uncomplicated; K50.90 Crohn's disease, unspecified, without complications; F31.9 Bipolar disorder, unspecified; R06.03 Acute respiratory distress; K21.9 Gastro-esophageal reflux disease without esophagitis; F43.10 Post-traumatic stress disorder, unspecified; Z20.822 Contact with and (suspected) exposure to COVID-19; Z86.16 Personal history of COVID-19; Z91.040 Latex allergy status; Z79.899 Other long term (current) drug therapy
CPT/HCPCS: 0241U; 36415; 71045; 80048; 80053; 80307; 81003; 82947; 83735; 85025; 93005; 94640; 94644; 96361; 96365; 96366; 96375; 99218; 99284; 99291; J2060; J2920; J2930; J3475

== ENCOUNTER 2022-01-28 11:14 | Emergency (ER) | payer OTHER, SELFPAY ==
[2022-01-28 11:15] VITALS: BP 104/64; PULSE 54; RESP 18; TEMP 36.6; O2SAT 97; BMI 21.6
[2022-01-28 11:45] LABS: COVID-19 Test Negative (Negative); IDNOW Serial# 9DB6401D
== END 2022-01-28 13:15 | disposition left against medical advice (07) ==
PROVIDERS: Emergency Provider Emergency Medicine; PCP Nurse Practitioner Family
DX: R53.83 Other fatigue (principal); Z20.822 Contact with and (suspected) exposure to COVID-19
CPT/HCPCS: 87635; 99283

== ENCOUNTER 2022-02-08 17:53 | Emergency (ER) | payer OTHER, SELFPAY ==
--- NOTE | ~2022-02-08 | XR_ITS ---
EXAMINATION: XR CHEST CLINICAL INFORMATION: Asthma. Cough. COMPARISON: Chest x-ray 11/29/2021 TECHNIQUE: 2 views of the chest were obtained. FINDINGS: No significant abnormality is noted involving the heart, lungs, mediastinum, bony thorax or soft tissues. XR/XR chest 2V IMPRESSION: Unremarkable examination.
[2022-02-08 17:59] VITALS: BP 109/68; PULSE 90; RESP 20; TEMP 36.8; O2SAT 94; BMI 18.8
--- NOTE | 2022-02-08 18:36 | ED_ITS ---
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 Patient states that she was seen at [facility] within the last few weeks for the same, and had a positive COVID test. She states she was subsequently seen here and had a negative COVID test, was treated in the emergency department and discharged. She states that her primary care physician thinks she may have a long-haul COVID. She states that after she was seen at [facility] she was put on Paxlovid. She denies any recent fever but has felt flushed. She has tried home nebulizer treatments for without relief. She notes that she has shortness of breath with minimal exertion. She also notes that she has not been able to eat or drink much because she throws up. She denies any pain or swelling in her lower extremities. Denies abdominal pain. She is not on any steroid therapy currently, last had a course of steroids weeks ago. Patient also has history of opioid use disorder Related Data Home Medications Medication Instructions Recorded Confirmed cyclobenzaprine 5 mg tablet 2.5 tab PO TID PRN Muscle Spasm 05/31/21 11/30/21 clonidine HCl 0.1 mg tablet 0.1 mg PO TID 08/01/21 11/30/21 risperidone 0.25 mg tablet 0.25 mg PO BEDTIME 08/01/21 11/30/21 clonazepam 2 mg tablet 1 tab PO BID PRN Anxiety 11/05/21 11/30/21 methadone 10 mg/mL oral concentrate 60 mg PO DAILY 11/30/21 11/30/21 Previous Rx's Medication Instructions Recorded doxepin 10 mg capsule 10 mg PO BEDTIME 30 days #30 caps 05/08/21 cariprazine 1.5 mg capsule 1.5 mg PO BEDTIME #30 caps 07/11/21 (Vraylar) melatonin 10 mg tablet 10 mg PO BEDTIME 30 days #30 tabs 08/01/21 prazosin 2 mg capsule 2 mg PO BEDTIME 30 days #30 caps 09/18/21 gabapentin 600 mg tablet 600 mg PO TID 30 days #90 tabs 11/19/21 omeprazole 20 mg capsule,delayed 20 - 40 mg PO DAILY 90 days #90 12/01/21 release caps albuterol sulfate 2.5 mg (3 mL) inhalation Q4H PRN 12/10/21 shortness of breath or wheezing #180 mL albuterol sulfate 90 mcg/actuation 2 puff inhalation QID PRN Dyspnea 12/31/21 aerosol inhaler (ProAir HFA) 30 days #8.5 grams albuterol sulfate 90 mcg/actuation 2 puff inhalation Q4-6H PRN 02/08/22 aerosol inhaler shortness of breath or wheezing #8.5 grams fluticasone propionate 115 2 puff inhalation BID #12 grams 02/08/22 mcg-salmeterol 21 mcg/actuation HFA inhaler (Advair HFA) prednisone 20 mg tablet 40 mg PO DAILY #10 tabs 02/08/22 Allergies Allergy/AdvReac Type Severity Reaction Status Date / Time latex [LATEX] Allergy Intermediate RASH Verified 08/01/21 16:52 adhesive tape [ADHESIVE TAPE] AdvReac Intermediate RASH Verified 08/01/21 16:52 Review of Systems Review of Systems: Yes all other systems are reviewed and are negative Constitutional: Constitutional: Reports as per HPI and Denies fever(s) Eyes: Eyes: Reports as per HPI and Reports no additional eye complaints ENT: Reports system reviewed and no additional complaints, except as document ed, Reports as per HPI, Denies nasal congestion, Denies nasal discharge and Denies sore throat Cardiovascular: Cardiovascular: Reports as per HPI, Denies chest pain and Reports dyspnea Respiratory: Respiratory: Reports as per HPI, Reports cough, Reports dyspnea and Reports wheezing Gastrointestinal: Gastrointestinal: Reports as per HPI, Denies abdominal pain, Denies diarrhea and Reports vomiting Genitourinary: Genitourinary: Reports as per HPI, Denies hematuria, Denies urinary frequency and Denies dysuria Musculoskeletal: Musculoskeletal: Reports no additional musculoskeletal complaints and Denies numbness Integumentary/Breasts: Skin/Breast: Reports as per HPI and Denies rash Neurologic: Reports as per HPI, Denies focal weakness and Denies numbness Psychiatric: Psychiatric: Reports no additional psychiatric complaints and Reports as per HPI Endocrine: Endocrine: Reports no additional endocrine complaints and Reports as per HPI Hematologic/Lymphatic: Hematologic/Lymphatic: Reports no additional hematologic/lymphatic complaints, Reports as per HPI and Reports other (No peripheral edema) Allergic/Immunologic: Allergic/Immunologic: Reports wheezing PMFSH Past Medical History Medical History Anxiety Asthma Asthma Bipolar disorder COVID-19 Crohn's disease Depression GERD (gastroesophageal reflux disease) Opioid use disorder Pneumonia due to COVID-19 virus PTSD (post-traumatic stress disorder) Family History Family History Father Colon cancer Mother No problems noted. Brother Autism Sister Bipolar disorder Maternal Aunt Breast cancer Social History Social History Household Members: Significant Other Housing: Other Housing Other:: motel Do you presently have visiting nurse or other home services: No Alcohol intake: unknown Patient Tobacco Use Status: Never used Tobacco Tobacco use type: Cigarette Cigarette Packs Per Day: 0.33 Cigarettes Per Day: 6.6 Years Smoked: 9 e-Cigarette/Vaping Use: Currently Using Second Hand Smoke Exposure: Yes Substance Use Type: Heroin Advance Directives: Yes Advance Directives on File: Yes Advance Directives Date on File: 05/07/21 service: No Current occupational status: unemployed Physical Exam ED Vital Signs: Vital Signs - 24 hr 02/08/22 17:59 02/08/22 18:43 02/08/22 19:51 Temperature 98.2 F 98.5 F Pulse Rate 90 89 92 Respiratory Rate 20 18 16 Blood Pressure 109/68 104/67 Pulse Oximetry 94 97 Oxygen Delivery Method Room Air Room Air BMI result Body Mass Index 18.8 Const Other: Patient with a depressed affect, seems somewhat histrionic General: no acute distress Orientation/consciousness: patient oriented x3 HENMT Head: Yes normal to inspection General nose exam: Normal external nose present Mouth: moist mucous membranes Throat: Yes posterior oropharynx normal, Yes tonsils normal and Yes uvula mi dline Eyes Eyelids: Yes eyelids normal Conjunctivae: conjunctivae normal Pupils: Equal, round and reactive pupils present Neck Neck: Yes supple Resp Effort & Inspection: normal respiratory effort and able to speak in complete sentences Auscultation: not clear to auscultation bilaterally and wheezes (Coarse expiratory with prolonged expiratory phase, no crackles) Cardio Rate: regular rate Rhythm: regular rhythm Heart sounds: S1 normal heart sound present, S2 normal heart sound present, no gallops, no murmurs and no rubs GI Inspection: No distended Palpation (GI): Soft to palpation and nontender Auscultation: normal bowel sounds Skin General skin exam: other (Warm and dry) Neuro General: patient oriented x3 and CN's II-XI intact bilaterally Cranial nerves: Yes Equal, round and reactive pupils present Extrem General: Yes no pedal edema Psych Affect: normal affect Attitude: cooperative Medical Decision Making MDM Narrative Medical decision making narrative: Patient with a history of asthma, as well as substance abuse, PTSD, bipolar disorder, anxiety. Patient had a depressed affect hand seem to be exaggerating her expiratory wheezes on initial exam. When I returned to re-evaluate her after treatment she was smiling and interacting normally, briefly made herself wheeze again but then stopped doing so. Chest x-ray is negative. Patient was treated with a DuoNeb and 5 mg of albuterol by nebulizer, as well as prednisone 40 mg p.o.. 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 She is on albuterol, Advair, albuterol nebulizers. Will prescribe a short course of prednisone. Patient is frustrated that she seems to have chronic recurrence of her wheezing. I suspect there is a psychiatric component to her chronic illness. Patient states that she is ?in a wheelchair? but then states that she does get up and walk around her apartment an apartment complex in order not to lose strength. Her mom notes that she cannot go upstairs because of her breathing. Recommend pulmonary follow-up. Lab Data Lab results reviewed: Yes I reviewed the patient's lab results. Result diagrams: 02/08/22 19:11 02/08/22 19:11 Labs: Lab Results 02/08/22 02/08/22 Range/Units 19:11 19:11 WBC 5.6 (4.8-10.8) X10*3/uL RBC 3.85 L (4.20-5.50) X10*6/uL Hgb 10.6 L (12.0-16.0) g/dl Hct 32.7 L (37.0-47.0) % MCV 84.9 (80.0-98.0) fL MCH 27.5 (27.0-33.0) pg MCHC 32.4 (31.0-35.0) g/dl RDW 14.5 (11.0-16.0) % Plt Count 187 D (160-400) X10*3/uL MPV 9.5 (9.4-12.3) fL Immature Gran % (Auto) 0.2 (0.0-0.4) % Neut % (Auto) 41.4 L (45-73) % Lymph % (Auto) 36.0 (20-40) % Mcnairy % (Auto) 8.1 (2-11) % Eos % (Auto) 14.1 H (0-4) % Baso % (Auto) 0.2 (0-2) % Lymph # (Auto) 2.0 (1.2-4.9) X10*3/uL Mcnairy # (Auto) 0.5 (0.1-1.2) X10*3/uL Eos # (Auto) 0.8 H (0.0-0.4) X10*3/uL Baso # (Auto) 0.0 (0.0-0.2) X10*3/uL Abs Immat Gran (auto) 0.01 (0.00-0.03) X10*3/uL Absolute Neuts (auto) 2.3 (2.0-8.3) x10*3/uL Absolute Nucleated RBC 0.000 (0.0-0.012) X10*3/uL Nucleated RBC % (auto) 0.0 (0.0-0.2) /100WBC Sodium 140 (135-145) mmol/L Potassium 3.9 (3.3-5.1) mmol/L Chloride 105 (96-108) mmol/L Carbon Dioxide 26 (22-29) mmol/L Anion Gap 13 (12-20) BUN 9 (9-16) mg/dL Creatinine 0.64 (0.5-1.4) mg/dL Estim Creat Clear Calc 106.8 Estimated GFR > 60 Random Glucose 104 (60-115) mg/dL Calcium 8.4 D (8.4-10.2) mg/dL Total Bilirubin 0.2 (0.0-1.0) mg/dL AST 20 (5-31) U/L ALT 26 (0-31) U/L Alkaline Phosphatase 81 (39-117) U/L Total Protein 6.1 L D (6.5-8.0) g/dL Albumin 3.5 D (3.5-5.0) g/dL Beta HCG, Quant < 2 mIU/mL Imaging Data Chest x-ray: Radiologist's impression: MPRESSION: Unremarkable examination. Discharge Plan Discharge Clinical Impression: Bronchospasm Patient Disposition: Home, Self-Care Instructions: Asthma (ED) Additional Instructions: Continue your nebulizer treatments, albuterol rescue inhaler. Take the prednisone as prescribed. Continue the Advair. Follow-up with your scrum product owner-call on Friday for an appointment Prescriptions: New prednisone 20 mg tablet 40 mg PO DAILY Qty: 10 0RF albuterol sulfate 90 mcg/actuation HFA aerosol inhaler 2 puff inhalation Q4-6H PRN (Reason: shortness of breath or wheezing) Qty: 8.5 0RF Advair HFA 115-21 mcg/actuation HFA aerosol inhaler 2 puff inhalation BID Qty: 12 0RF No Action doxepin 10 mg capsule 10 mg PO BEDTIME 30 Days Qty: 30 0RF Vraylar 1.5 mg capsule 1.5 mg PO BEDTIME Qty: 30 0RF prazosin 2 mg capsule 2 mg PO BEDTIME 30 Days Qty: 30 1RF gabapentin 600 mg tablet 600 mg PO TID 30 Days Qty: 90 0RF omeprazole 20 mg capsule,delayed release(DR/EC) 20 - 40 mg PO DAILY 90 Days Qty: 90 0RF albuterol sulfate 2.5 mg /3 mL (0.083 %) solution for nebulization 2.5 mg inhalation Q4H PRN (Reason: shortness of breath or wheezing) Qty: 180 2RF albuterol sulfate [ProAir HFA] 90 mcg/actuation HFA aerosol inhaler 2 puff INHALATION QID PRN (Reason: Dyspnea) 30 Days Qty: 8.5 1RF cyclobenzaprine 5 mg tablet 2.5 tab PO TID PRN (Reason: Muscle Spasm) clonazepam 2 mg tablet 1 tab PO BID PRN (Reason: Anxiety) methadone 10 mg/mL Concentrate 60 mg PO DAILY risperidone 0.25 mg tablet 0.25 mg PO BEDTIME clonidine HCl 0.1 mg tablet 0.1 mg PO TID melatonin 10 mg tablet 10 mg PO BEDTIME 30 Days Qty: 30 0RF
[2022-02-08] MEDS: Albuterol Sulfate (0.083%) 2.5 MG/3 ML VIAL.NEB 5 MG INHALE (18:42)
[2022-02-08] MEDS: predniSONE 20 MG TABLET 60 MG PO (18:42)
[2022-02-08] MEDS: Albuterol/Iprat 2.5/0.5MG 3 ML AMPUL.NEB INHALE (18:42)
[2022-02-08 18:43] VITALS: PULSE 89; RESP 18; O2SAT 94
[2022-02-08 19:14] LABS: MANUAL DIFF FLAG NO
[2022-02-08 19:18] LABS: Basophils Percent Auto 0.2 % (0-2); Eosinophils Absolute Auto 0.8 X10*3/uL (0.0-0.4); Eosinophils Percent Auto 14.1 % (0-4); Hematocrit 32.7 % (37.0-47.0); Hemoglobin 10.6 g/dl (12.0-16.0); Imm Gran Abs Auto 0.01 X10*3/uL (0.00-0.03); Imm Gran Pct Auto 0.2 % (0.0-0.4); Mean Corpuscular HGB Conc 32.4 g/dl (31.0-35.0); Mean Corpuscular Hemoglobin 27.5 pg (27.0-33.0); Mean Corpuscular Volume 84.9 fL (80.0-98.0); Mean Platelet Volume 9.5 fL (9.4-12.3); Monocytes Absolute Auto 0.5 X10*3/uL (0.1-1.2); Monocytes Percent Auto 8.1 % (2-11); Neutrophils Absolute Auto 2.3 x10*3/uL (2.0-8.3); Neutrophils Percent Auto 41.4 % (45-73); Platelet Count 187 X10*3/uL (160-400); Red Blood Count 3.85 X10*6/uL (4.20-5.50); Red Cell Distribution Width 14.5 % (11.0-16.0); White Blood Count 5.6 X10*3/uL (4.8-10.8)
[2022-02-08 19:32] LABS: Alanine Aminotransferase 26 U/L (0-31); Albumin Level 3.5 g/dL (3.5-5.0); Alkaline Phosphatase 81 U/L (39-117); Anion Gap 13 (12-20); Aspartate Amino Transferase 20 U/L (5-31); Bilirubin Total 0.2 mg/dL (0.0-1.0); Blood Urea Nitrogen 9 mg/dL (9-16); Calcium 8.4 mg/dL (8.4-10.2); Carbon Dioxide 26 mmol/L (22-29); Chloride 105 mmol/L (96-108); Creatinine Clr Calc Pharmacy 106.8; Estimated Glomerular Filt Rate > 60; Glucose Random 104 mg/dL (60-115); Potassium 3.9 mmol/L (3.3-5.1); Sodium 140 mmol/L (135-145); Total Protein 6.1 g/dL (6.5-8.0)
[2022-02-08 19:38] LABS: HCG Quantitative < 2 mIU/mL
[2022-02-08 19:51] VITALS: BP 104/67; PULSE 92; RESP 16; TEMP 36.9; O2SAT 97
== END 2022-02-08 21:02 | disposition home or self-care (01) ==
PROVIDERS: Emergency Provider Emergency Medicine; PCP Nurse Practitioner Family
DX: J98.01 Acute bronchospasm (principal); J45.909 Unspecified asthma, uncomplicated
CPT/HCPCS: 36415; 71046; 80053; 84702; 85025; 94640; 94644; 99284

== ENCOUNTER 2022-02-11 14:29 | Emergency (ER) | payer OTHER, SELFPAY ==
[2022-02-11 15:04] VITALS: BP 105/71; PULSE 93; RESP 18; TEMP 36.8; O2SAT 96; BMI 19.1
--- NOTE | 2022-02-11 15:19 | ED_ITS ---
HPI - General Adult General Chief complaint: General Medical Stated complaint: medication Time Seen by Provider: 02/11/22 15:10 Source: patient Mode of arrival: ambulatory Limitations: no limitations History of Present Illness HPI narrative: 26 yo female with opiate use disorder on methadone who presents to the ER for methadone. She was going to be late for her methadone dose today so she called the clinic. She spoke with the nurse shared services and outsourcing manager who said they could provide a Last Dose letter but could not give the dose. She reports last dose was yesterday at 10am. She reports also coming off of benzos. She is no longer prescribed her Klonopin. She is feeling okay but a little anxious. complaint: methadone dose Onset (ago): day(s) Severity: mild Relieving factors: none Exacerbating factors: none Associated symptoms: denies other symptoms Treatments prior to arrival: none Related Data Home Medications Medication Instructions Recorded Confirmed cyclobenzaprine 5 mg tablet 2.5 tab PO TID PRN Muscle Spasm 05/31/21 11/30/21 clonidine HCl 0.1 mg tablet 0.1 mg PO TID 08/01/21 11/30/21 risperidone 0.25 mg tablet 0.25 mg PO BEDTIME 08/01/21 11/30/21 clonazepam 2 mg tablet 1 tab PO BID PRN Anxiety 11/05/21 11/30/21 methadone 10 mg/mL oral concentrate 60 mg PO DAILY 11/30/21 11/30/21 Previous Rx's Medication Instructions Recorded doxepin 10 mg capsule 10 mg PO BEDTIME 30 days #30 caps 05/08/21 cariprazine 1.5 mg capsule 1.5 mg PO BEDTIME #30 caps 07/11/21 (Vraylar) melatonin 10 mg tablet 10 mg PO BEDTIME 30 days #30 tabs 08/01/21 prazosin 2 mg capsule 2 mg PO BEDTIME 30 days #30 caps 09/18/21 gabapentin 600 mg tablet 600 mg PO TID 30 days #90 tabs 11/19/21 omeprazole 20 mg capsule,delayed 20 - 40 mg PO DAILY 90 days #90 12/01/21 release caps albuterol sulfate 2.5 mg (3 mL) inhalation Q4H PRN 12/10/21 shortness of breath or wheezing #180 mL albuterol sulfate 90 mcg/actuation 2 puff inhalation Q4-6H PRN 02/08/22 aerosol inhaler shortness of breath or wheezing #8.5 grams fluticasone propionate 115 2 puff inhalation BID #12 grams 02/08/22 mcg-salmeterol 21 mcg/actuation HFA inhaler (Advair HFA) prednisone 20 mg tablet 40 mg PO DAILY #10 tabs 02/08/22 albuterol sulfate 90 mcg/actuation 2 puff inhalation QID PRN Dyspnea 02/09/22 aerosol inhaler (ProAir HFA) 30 days #8.5 grams Allergies Allergy/AdvReac Type Severity Reaction Status Date / Time latex [LATEX] Allergy Intermediate RASH Verified 08/01/21 16:52 adhesive tape [ADHESIVE TAPE] AdvReac Intermediate RASH Verified 08/01/21 16:52 Review of Systems Review of Systems: Constitutional: No Fever, No Chills Cardiovascular: No Chest Pain, No SOB Gastrointestinal: No Nausea, No Vomiting, No Diarrhea Skin: No Skin Lesions, No rash Neuro: No Weakness, No Dizziness, + Headache Psych: + Anxiety/Panic, No Depression PMFSH Past Medical History Medical History Anxiety Asthma Asthma Bipolar disorder COVID-19 Crohn's disease Depression GERD (gastroesophageal reflux disease) Opioid use disorder Pneumonia due to COVID-19 virus PTSD (post-traumatic stress disorder) Family History Family History Father Colon cancer Mother No problems noted. Brother Autism Sister Bipolar disorder Maternal Aunt Breast cancer Social History Social History Household Members: Significant Other Housing: [facility] Do you presently have visiting nurse or other home services: No Alcohol intake: unknown Patient Tobacco Use Status: Never used Tobacco Tobacco use type: Cigarette Cigarette Packs Per Day: 0.33 Cigarettes Per Day: 6.6 Years Smoked: 9 e-Cigarette/Vaping Use: Currently Using Second Hand Smoke Exposure: Yes Substance Use Type: Heroin Advance Directives: Yes Advance Directives on File: Yes Advance Directives Date on File: 05/07/21 service: No Current occupational status: unemployed Physical Exam ED Vital Signs: Vital Signs - 24 hr 02/11/22 15:04 Temperature 98.3 F Pulse Rate 93 Respiratory Rate 18 Blood Pressure 105/71 Pulse Oximetry 96 Oxygen Delivery Method Room Air BMI result Body Mass Index 19.1 Appearance: Alert. Oriented X3. No acute distress. HEENT: normal external inspection Neck: Normal inspection. Respiratory: No respiratory distress. Speaks in complete sentences Skin: Skin warm and dry. Normal skin color. Normal skin turgor. No rashes. Extremities: No lower extremity edema. No evidence of track randall Neuro: Oriented X 3. Grossly normal, nonfocal Course Course Course Narrative: 26 yo female presenting seeking methadone dose. She presents with her last dose letter from [facility]. She is on 100 mg per day and last got a dose on 02/10. Clinic is closed now. Her dose has been ordered given her confirmation of dosing. Stable for d/c and they will follow up with Methadone clinic tomorrow morning. Critical Care Time Critical Care Time Critical Care Time: No Discharge Plan Discharge Clinical Impression: Opioid use disorder Patient Disposition: Home, Self-Care Instructions: Opioid Use Disorder (ED) Additional Instructions: Follow up with the Methadone Clinic tomorrow Prescriptions: No Action doxepin 10 mg capsule 10 mg PO BEDTIME 30 Days Qty: 30 0RF Vraylar 1.5 mg capsule 1.5 mg PO BEDTIME Qty: 30 0RF prazosin 2 mg capsule 2 mg PO BEDTIME 30 Days Qty: 30 1RF gabapentin 600 mg tablet 600 mg PO TID 30 Days Qty: 90 0RF omeprazole 20 mg capsule,delayed release(DR/EC) 20 - 40 mg PO DAILY 90 Days Qty: 90 0RF albuterol sulfate 2.5 mg /3 mL (0.083 %) solution for nebulization 2.5 mg inhalation Q4H PRN (Reason: shortness of breath or wheezing) Qty: 180 2RF albuterol sulfate [ProAir HFA] 90 mcg/actuation HFA aerosol inhaler 2 puff INHALATION QID PRN (Reason: Dyspnea) 30 Days Qty: 8.5 1RF cyclobenzaprine 5 mg tablet 2.5 tab PO TID PRN (Reason: Muscle Spasm) clonazepam 2 mg tablet 1 tab PO BID PRN (Reason: Anxiety) methadone 10 mg/mL Concentrate 60 mg PO DAILY prednisone 20 mg tablet 40 mg PO DAILY Qty: 10 0RF albuterol sulfate 90 mcg/actuation HFA aerosol inhaler 2 puff inhalation Q4-6H PRN (Reason: shortness of breath or wheezing) Qty: 8.5 0RF Advair HFA 115-21 mcg/actuation HFA aerosol inhaler 2 puff inhalation BID Qty: 12 0RF risperidone 0.25 mg tablet 0.25 mg PO BEDTIME clonidine HCl 0.1 mg tablet 0.1 mg PO TID melatonin 10 mg tablet 10 mg PO BEDTIME 30 Days Qty: 30 0RF
--- NOTE | 2022-02-11 15:29 | PC.NURSE ---
DOSE CONFIRMED BY LAST DOSE DOCUMENTATION BROUGHT IN BY PATIENT FROM [facility] OPIOID USE DISORDER PROGRAM. DOSE CONFIRMED BY MARIA FERNANDA LACY RN NURSE PLANNING CONSULTANT DATED TODAY. LAST DOSE WAS YESTERDAY 100 MG METHADONE.
[2022-02-11] MEDS: methADONE HCl 20 MG/2 ML ORAL.CONC 100 MG PO (16:05)
== END 2022-02-11 16:24 | disposition home or self-care (01) ==
PROVIDERS: Emergency Provider Emergency Medicine; PCP Nurse Practitioner Family
DX: F11.19 Opioid abuse with unspecified opioid-induced disorder (principal); F17.210 Nicotine dependence, cigarettes, uncomplicated; Z71.6 Tobacco abuse counseling; Z79.899 Other long term (current) drug therapy
CPT/HCPCS: 99283

== ENCOUNTER 2022-04-07 10:50 | Emergency (ER) | payer OTHER, SELFPAY ==
--- NOTE | ~2022-04-07 | XR_ITS ---
EXAMINATION: XR foot RT min 3V CLINICAL INFORMATION: Reason for Exam Rule out glass foreign body in forefoot COMPARISON: None. TECHNIQUE: AP, lateral, and oblique views of the foot XR/XR foot RT min 3V FINDINGS/IMPRESSION: * 6 mm curvilinear radiodense foreign body is noted in the plantar soft tissues overlying the second proximal phalanx, which could reflect a retained glass foreign body as clinically described. * No acute fracture or dislocation. * Joint spaces are maintained without significant degenerative change.
--- NOTE | ~2022-04-07 | XR_ITS ---
EXAMINATION: XR chest 2V CLINICAL INFORMATION: Reason for Exam Cough COMPARISON: Chest radiograph 02/08/2022 TECHNIQUE: 2 views of the chest FINDINGS: Clear lungs. No pneumothorax or pleural effusion. Normal cardiomediastinal silhouette. XR/XR chest 2V Impression: * Clear lungs.
[2022-04-07 10:58] VITALS: BP 149/77; PULSE 87; RESP 18; TEMP 36.7; O2SAT 96; BMI 25.0
--- NOTE | 2022-04-07 11:38 | ED.GENADULT ---
HPI - General Adult General Chief complaint: General Medical Stated complaint: SOB/Infected wound on foot Time Seen by Provider: 04/07/22 11:38 History of Present Illness HPI narrative: Patient with 2 complaints Main complaint is asthma exacerbation, she has long history of severe difficult to control asthma and was just taken off a long-term prednisone by her primary doctor to see if her asthma has stabilized but unfortunately she developed wheezing and chest tightness typical of her asthma over the last 2-3 days despite using albuterol at home She is now complaining of wheezing and chest tightness, but no cough no fever no sputum no chest pain Second complaint is she stepped on glass and feels like there is a foreign body in her right foot, she denies redness swelling discharge from wound Related Data Home Medications Medication Instructions Recorded Confirmed methadone 10 mg/mL oral concentrate 60 mg PO DAILY 11/30/21 04/03/22 Previous Rx's Medication Instructions Recorded doxepin 10 mg capsule 10 mg PO BEDTIME 30 days #30 caps 05/08/21 prazosin 2 mg capsule 2 mg PO BEDTIME 30 days #30 caps 09/18/21 gabapentin 600 mg tablet 600 mg PO TID 30 days #90 tabs 11/19/21 albuterol sulfate 2.5 mg/3 mL 2.5 mg (3 mL) inhalation Q4H PRN 12/10/21 (0.083 %) solution for nebulization shortness of breath or wheezing #180 mL albuterol sulfate 90 mcg/actuation 2 puff inhalation Q4-6H PRN 02/08/22 aerosol inhaler shortness of breath or wheezing #8.5 grams fluticasone propionate 115 2 puff inhalation BID #12 grams 02/08/22 mcg-salmeterol 21 mcg/actuation HFA inhaler (Advair HFA) albuterol sulfate 90 mcg/actuation 2 puff inhalation QID PRN Dyspnea 02/09/22 aerosol inhaler (ProAir HFA) 30 days #8.5 grams omeprazole 20 mg capsule,delayed 20 - 40 mg PO DAILY 90 days #90 03/04/22 release caps lorazepam 1 mg tablet (Ativan) 1 mg PO DAILY PRN anxiety #2 tabs 04/07/22 prednisone 20 mg tablet 60 mg PO DAILY 5 days #15 tabs 04/07/22 Allergies Allergy/AdvReac Type Severity Reaction Status Date / Time latex [LATEX] Allergy Intermediate RASH Verified 04/07/22 10:58 adhesive tape [ADHESIVE TAPE] AdvReac Intermediate RASH Verified 04/07/22 10:58 Review of Systems Review of Systems: Positive for chest tightness shortness of breath and wheezing as well as foreign body sensation in the right foot Negatives are no fever no chills no dizziness no weakness no fainting no feeling faint no headache no neck pain no sore throat no chest pain no cough no sputum no abdominal pain no nausea vomiting or diarrhea no redness or swelling of her foot no numbness weakness or tingling Yes all other systems are reviewed and are negative [facility] Past Medical History Source: nursing notes reviewed Medical History (Updated 04/07/22 @ 13:26 by LISA Viveros) Anxiety Asthma Asthma Bipolar disorder COVID-19 Crohn's disease Depression GERD (gastroesophageal reflux disease) Opioid use disorder Pneumonia due to COVID-19 virus PTSD (post-traumatic stress disorder) Family History Family History Father Colon cancer Mother No problems noted. Brother Autism Sister Bipolar disorder Maternal Aunt Breast cancer Social History Social History Household Members: Significant Other Housing: Other Housing Other:: [facility] Do you presently have visiting nurse or other home services: No Alcohol intake: unknown Patient Tobacco Use Status: Former Tobacco user Cigarette Packs Per Day: 0.33 Cigarettes Per Day: 6.6 Years Smoked: 9 e-Cigarette/Vaping Use: Former Use Second Hand Smoke Exposure: Yes Substance Use Type: Heroin Advance Directives: Yes Advance Directives on File: Yes Advance Directives Date on File: 05/07/21 service: No Current occupational status: unemployed Cognitive needs: No Hearing needs: No Vision needs: No Physical Exam ED Vital Signs: Vital Signs - 24 hr 04/07/22 10:58 04/07/22 12:01 04/07/22 12:35 Temperature 98.0 F Pulse Rate 87 79 84 Respiratory Rate 18 18 18 Blood Pressure 149/77 H Pulse Oximetry 96 BMI result Body Mass Index 25.0 General appearance is comfortable no distress no respiratory distress speaking full sentences, she is calm and cooperative The eyes no redness or discharge The pharynx is clear without redness swelling or exudate mucous membranes are moist Neck is supple The chest has diffuse wheezes throughout the lung olivera, although there is good air entry and no prolonged expiration No respiratory distress Heart no murmur Extremities no edema no calf tenderness or swelling The right foot there is a 0.5 cm puncture wound where she stepped on the glass, no surrounding erythema no redness no warmth no discharge from wound no swelling no palpable piece of glass Course Course Course Narrative: Patient was given steroid and 1 hour continuous updraft after which she had no shortness of breath no chest tightness The lung exam was no longer any wheezing no adventitious sounds full clear air entry on both sides, speaking full sentences, ambulates easily without shortness of breath round the ER X-ray did show a foreign body likely a piece of glass right in the area of the puncture wound I recommended that I numbed up with lidocaine and explored to take out the piece of glass which looked like it was not too deep She said she had no time and that she felt anxious and she would wait and see if it works is way out I told her she could return here any time if it was bothering her for us to check it and decide if we want to remove it, I also gave the number of orthopedist and food inspector Medical Decision Making Lab Data Labs: Lab Results 04/07/22 Range/Units 12:10 COVID-19 (DAVID) Negative (Negative) COVID-19 Clin Com See Note Discharge Plan Discharge Clinical Impression: Asthma exacerbation, Retained foreign body of foot Patient Disposition: Home, Self-Care Additional Instructions: Your wheezing was very improved after treatment and we started prednisone for 5 days Follow with your doctor for recheck this week return any time for difficulty breathing or any worse condition X-RAY DID SHOW A RETAINED PIECE OF GLASS IN THE BOTTOM OF YOUR FOOT YOU DID NOT WANT ME TO TRY TO REMOVE IT TODAY YOU FELT IT WOULD MAKE YOU ANXIOUS AND HE WANTED TO SEE IF WOULD COME OUT ON ITS OWN YOU ARE WELCOME TO RETURN HERE ANY TIME AND IF YOUR IN THE ER YOU COULD ASK FOR AN ATIVAN BEFORE THE PROCEDURE YOU COULD TRY THE LABORER [employer] REFIN[employer] OR THE ORTHOPEDIST TO SEE IF THEY ARE WILLING TO TAKE IT OUT AN OUTPATIENT RETURN ANY TIME FOR REDNESS SWELLING ANY SIGN OF INFECTION Prescriptions: New lorazepam [Ativan] 1 mg tablet 1 mg PO DAILY PRN (Reason: anxiety) Qty: 2 0RF prednisone 20 mg tablet 60 mg PO DAILY 5 Days Qty: 15 0RF No Action doxepin 10 mg capsule 10 mg PO BEDTIME 30 Days Qty: 30 0RF prazosin 2 mg capsule 2 mg PO BEDTIME 30 Days Qty: 30 1RF gabapentin 600 mg tablet 600 mg PO TID 30 Days Qty: 90 0RF albuterol sulfate 2.5 mg /3 mL (0.083 %) solution for nebulization 2.5 mg inhalation Q4H PRN (Reason: shortness of breath or wheezing) Qty: 180 2RF albuterol sulfate [ProAir HFA] 90 mcg/actuation HFA aerosol inhaler 2 puff INHALATION QID PRN (Reason: Dyspnea) 30 Days Qty: 8.5 1RF omeprazole 20 mg capsule,delayed release(DR/EC) 20 - 40 mg PO DAILY 90 Days Qty: 90 0RF methadone 10 mg/mL Concentrate 60 mg PO DAILY albuterol sulfate 90 mcg/actuation HFA aerosol inhaler 2 puff inhalation Q4-6H PRN (Reason: shortness of breath or wheezing) Qty: 8.5 0RF Advair HFA 115-21 mcg/actuation HFA aerosol inhaler 2 puff inhalation BID Qty: 12 0RF Referrals: Herbert Cartagena MD [Physician] - (Retained glass foreign body right foot) Ace Gabriel DPM [Physician] - (Retained foreign body right foot) Interventions: ED Discharge Assessment Last Done: 04/07/22 13:35 Discharge Date/Time: 04/07/22 13:36
[2022-04-07] MEDS: Albuterol/Iprat 2.5/0.5MG 3 ML AMPUL.NEB INHALE (11:59)
[2022-04-07 12:01] VITALS: PULSE 79; RESP 18; O2SAT 96
[2022-04-07] MEDS: Diphth,Pertus(ACell),Tet Adult 0.5 ML SYRINGE IM (12:03)
[2022-04-07] MEDS: predniSONE 20 MG TABLET 60 MG PO (12:03)
[2022-04-07 12:31] LABS: COVID-19 Test Negative (Negative)
[2022-04-07 12:35] VITALS: PULSE 84; RESP 18; O2SAT 95
== END 2022-04-07 13:36 | disposition home or self-care (01) ==
PROVIDERS: Physician Assistant Medical; Emergency Provider Student in an Organized Health Care Education/Training Program; PCP Nurse Practitioner Family
DX: S91.331A Puncture wound without foreign body, right foot, initial encounter (principal); R05.9 Cough, unspecified; J45.901 Unspecified asthma with (acute) exacerbation; R06.02 Shortness of breath; R07.89 Other chest pain; W25.XXXA Contact with sharp glass, initial encounter; Y93.9 Activity, unspecified; Y92.9 Unspecified place or not applicable; Y99.9 Unspecified external cause status; Z20.822 Contact with and (suspected) exposure to COVID-19; Z87.891 Personal history of nicotine dependence; Z79.899 Other long term (current) drug therapy
CPT/HCPCS: 71046; 73630; 87635; 90471; 90715; 94640; 99284

== ENCOUNTER 2022-04-09 11:46 | Emergency (ER) | payer OTHER, SELFPAY ==
--- NOTE | ~2022-04-09 | XR_ITS ---
EXAMINATION: XR FOOT, RIGHT CLINICAL INFORMATION: Right plantar foot pain since stepping on light bulb. COMPARISON: Radiographs of the right foot done on 04/07/2022. TECHNIQUE: AP, lateral, and oblique views of the right foot. FINDINGS: Previously documented 6 mm radiopaque foreign bodies seen projecting in the region of the proximal phalanx of the right second toe is no longer visualized. No new radiopaque foreign bodies present. The bony alignments are intact. The cortices are intact. Articular margins, joint space and periarticular soft tissues are unremarkable. XR/XR foot RT 2V IMPRESSION: Previously documented 6 mm radiopaque foreign body is no longer visualized. No new abnormalities. No other significant change since 04/07/2022.
[2022-04-09 11:48] VITALS: BP 115/67; PULSE 82; RESP 16; TEMP 36.4; O2SAT 99; BMI 25.0
--- NOTE | 2022-04-09 12:54 | ED.EXTPRO ---
HPI - Extremity Problem General Chief complaint: Extremity Problem Stated complaint: returning to get glass taken out of foot Time Seen by Provider: 04/09/22 12:13 Source: patient and family Mode of arrival: ambulatory Limitations: no limitations History of Present Illness HPI Narrative: Patient here 2 days ago and had foreign body of a piece of glass in her right foot. She was too anxious to have it removed then. She returns today for foreign body removal. She did have an x-ray then which confirmed foreign body. She has been soaking the foot and a small piece of glass did come out the other day. Patient still feels like there may be something in there. No fevers or chills. Related Data Home Medications Medication Instructions Recorded Confirmed methadone 10 mg/mL oral concentrate 60 mg PO DAILY 11/30/21 04/03/22 Previous Rx's Medication Instructions Recorded doxepin 10 mg capsule 10 mg PO BEDTIME 30 days #30 caps 05/08/21 prazosin 2 mg capsule 2 mg PO BEDTIME 30 days #30 caps 09/18/21 gabapentin 600 mg tablet 600 mg PO TID 30 days #90 tabs 11/19/21 albuterol sulfate 2.5 mg/3 mL 2.5 mg (3 mL) inhalation Q4H PRN 12/10/21 (0.083 %) solution for nebulization shortness of breath or wheezing #180 mL albuterol sulfate 90 mcg/actuation 2 puff inhalation Q4-6H PRN 02/08/22 aerosol inhaler shortness of breath or wheezing #8.5 grams fluticasone propionate 115 2 puff inhalation BID #12 grams 02/08/22 mcg-salmeterol 21 mcg/actuation HFA inhaler (Advair HFA) albuterol sulfate 90 mcg/actuation 2 puff inhalation QID PRN Dyspnea 02/09/22 aerosol inhaler (ProAir HFA) 30 days #8.5 grams omeprazole 20 mg capsule,delayed 20 - 40 mg PO DAILY 90 days #90 03/04/22 release caps lorazepam 1 mg tablet (Ativan) 1 mg PO DAILY PRN anxiety #2 tabs 04/07/22 prednisone 20 mg tablet 60 mg PO DAILY 5 days #15 tabs 04/07/22 Allergies Allergy/AdvReac Type Severity Reaction Status Date / Time latex [LATEX] Allergy Intermediate RASH Verified 04/07/22 10:58 adhesive tape [ADHESIVE TAPE] AdvReac Intermediate RASH Verified 04/07/22 10:58 Review of Systems Review of Systems: Yes all other systems are reviewed and are negative Constitutional: Constitutional: Reports no additional constitutional complaints, Denies body ache(s), Denies chills, Denies fever(s), Denies headache(s) and Denies weakness Eyes: Eyes: Reports no additional eye complaints and Denies change in vision ENT: Reports system reviewed and no additional complaints, except as documented, Denies dizziness, Denies headache(s), Denies nasal congestion, Denies nasal discharge and Denies neck pain Cardiovascular: Cardiovascular: Reports no additional cardiovascular complaints, Denies chest pain, Denies leg edema and Denies dyspnea Respiratory: Respiratory: Reports no additional respiratory complaints, Denies cough and Denies dyspnea Gastrointestinal: Gastrointestinal: Reports no additional gastrointestinal complaints, Denies abdominal pain, Denies diarrhea, Denies nausea and Denies vomiting Genitourinary: Genitourinary: Reports no additional female genitourinary complaints and Denies urinary incontinence Musculoskeletal: Musculoskeletal: Reports no additional musculoskeletal complaints, Denies back pain, Denies arthralgias, Denies joint swelling, Denies neck pain, Denies numbness and Denies tingling Integumentary/Breasts: Skin/Breast: Reports system reviewed and no additional complaints, except as docu and Denies rash Neurologic: Reports system reviewed and no additional complaints, except as documented, Denies Abnormal speech present, Denies dizziness, Denies headache(s), Denies numbness, Denies tingling and Denies weakness COUNTS INCLUDE 234 BEDS AT THE [facility] Past Medical History Attestation statement: The following information was validated with the patient. Source: old records reviewed and nursing notes reviewed Medical History Anxiety Asthma Asthma Bipolar disorder COVID-19 Crohn's disease Depression GERD (gastroesophageal reflux disease) Opioid use disorder Pneumonia due to COVID-19 virus PTSD (post-traumatic stress disorder) Family History Family History Father Colon cancer Mother No problems noted. Brother Autism Sister Bipolar disorder Maternal Aunt Breast cancer Social History Social History Household Members: Significant Other Housing: [facility] Do you presently have visiting nurse or other home services: No Alcohol intake: unknown Patient Tobacco Use Status: Former Tobacco user Cigarette Packs Per Day: 0.33 Cigarettes Per Day: 6.6 Years Smoked: 9 e-Cigarette/Vaping Use: Former Use Second Hand Smoke Exposure: Yes Substance Use Type: Heroin Advance Directives: Yes Advance Directives on File: Yes Advance Directives Date on File: 05/07/21 service: No Current occupational status: unemployed Cognitive needs: No Hearing needs: No Vision needs: No Physical Exam Vital Signs: Vital Signs: Last Vital Signs Temp 97.5 F 04/09/22 11:48 Pulse 82 04/09/22 11:48 Resp 16 04/09/22 11:48 BP 115/67 04/09/22 11:48 Pulse Ox 99 04/09/22 11:48 O2 Del Method 04/09/22 11:48 BMI result Body Mass Index 25.0 Const: General: cooperative, healthy appearing, comfortable and no acute distress Orientation/consciousness: patient oriented x3 Limitations: no limitations HEENT: Head: Yes normal to inspection Ears: hearing grossly normal bilaterally General nose exam: Normal external nose present Face and sinus: Yes normal facial exam Mouth: Normal oral and palatal mucosa present Throat: Yes posterior oropharynx normal Eyes: General: appearance normal, both eyes and all related structures Pupils: Equal, round and reactive pupils present Neck: Neck: Yes normal visual inspection Chest: Chest palpation & inspection: normal inspection of the chest Resp: Effort & Inspection: normal respiratory effort Auscultation: clear to auscultation bilaterally Cardio: Rate: regular rate Rhythm: regular rhythm Peripheral pulses: Peripheral pulses 2+ throughout GI: Inspection: Yes normal to inspection Palpation (GI): Soft to palpation and nontender Auscultation: normal bowel sounds Back/Spine/Pelvis: Thoracic/Lumbar Spine: thoracic and lumbar spine normal to inspection Skin: General skin exam: no rashes or lesions noted Neuro: General: patient oriented x3, no focal motor deficits and normal sensation to monofilament Cranial nerves: Yes Equal, round and reactive pupils present Cognition (Neuro): normal cognition Speech: No Abnormal speech present Gait exam (Neuro): Normal gait present Motor exam (neuro): 5/5 motor strength present throughout Extrem: General: Yes normal to inspection Ankle/foot/toe images: 1. Laceration Course Course Course Narrative: Repeat x-ray shows no foreign body. The site was cleansed with saline and Betadine and a sterile dressing was applied bacitracin. There is no signs of infection. Reviewed worrisome signs and symptoms with the patient and when to return to the emergency department. Comfortable discharge home MDM - Extremity (Nontraumatic) MDM Narrative Medical decision making narrative: 26-year-old female here with foreign body to the right foot who returns for removal. Patient feels like a small piece of the foreign body may have come out since her last visit and so we will check a repeat x-ray. Medical Records Attestation: I reviewed the patient's medical records. Lab Data Attestation: I reviewed the patient's lab results. Imaging Data foot x-ray: Attestation: I personally reviewed and interpreted this imaging study as follows: Radiologist's impression: ght plantar foot pain since stepping on light bulb. COMPARISON: Radiographs of the right foot done on 04/07/2022.? TECHNIQUE: AP, lateral, and oblique views of the right foot. FINDINGS: Previously documented 6 mm radiopaque foreign bodies seen projecting in the region of the proximal phalanx of the right second toe is no longer visualized. No new radiopaque foreign bodies present. The bony alignments are intact. The cortices are intact. Articular margins, joint space and periarticular soft tissues are unremarkable. XR/XR foot RT 2V IMPRESSION: Previously documented 6 mm radiopaque foreign body is no longer visualized. No new abnormalities. No other significant change since 04/07/2022. Discharge Plan Discharge Clinical Impression: Foreign body (FB) in soft tissue Patient Disposition: Home, Self-Care Instructions: Soft Tissue Foreign Body (ED) Additional Instructions: Keep the wound clean covered and dry Prescriptions: No Action doxepin 10 mg capsule 10 mg PO BEDTIME 30 Days Qty: 30 0RF prazosin 2 mg capsule 2 mg PO BEDTIME 30 Days Qty: 30 1RF gabapentin 600 mg tablet 600 mg PO TID 30 Days Qty: 90 0RF albuterol sulfate 2.5 mg /3 mL (0.083 %) solution for nebulization 2.5 mg inhalation Q4H PRN (Reason: shortness of breath or wheezing) Qty: 180 2RF albuterol sulfate [ProAir HFA] 90 mcg/actuation HFA aerosol inhaler 2 puff INHALATION QID PRN (Reason: Dyspnea) 30 Days Qty: 8.5 1RF omeprazole 20 mg capsule,delayed release(DR/EC) 20 - 40 mg PO DAILY 90 Days Qty: 90 0RF lorazepam [Ativan] 1 mg tablet 1 mg PO DAILY PRN (Reason: anxiety) Qty: 2 0RF prednisone 20 mg tablet 60 mg PO DAILY 5 Days Qty: 15 0RF methadone 10 mg/mL Concentrate 60 mg PO DAILY albuterol sulfate 90 mcg/actuation HFA aerosol inhaler 2 puff inhalation Q4-6H PRN (Reason: shortness of breath or wheezing) Qty: 8.5 0RF Advair HFA 115-21 mcg/actuation HFA aerosol inhaler 2 puff inhalation BID Qty: 12 0RF Referrals: Vincent Hayes, LAYDOWN MACHINE OPERATOR-BC [Primary Care Provider] - Interventions: ED Discharge Assessment Last Done: 04/09/22 14:38 Discharge Date/Time: 04/09/22 14:39
[2022-04-09] MEDS: Lidocaine HCl 1 % MPF 5 ML VIAL SUBCUT (13:35)
== END 2022-04-09 14:39 | disposition home or self-care (01) ==
PROVIDERS: Emergency Provider Emergency Medicine; PCP Nurse Practitioner Family
DX: M79.5 Residual foreign body in soft tissue (principal); M79.671 Pain in right foot; Z87.891 Personal history of nicotine dependence
CPT/HCPCS: 73620; 99282; 99283

== ENCOUNTER → 2022-05-23 12:29 | Outpatient (BNVA) | payer OTHER, SELFPAY | PROVIDERS: PCP Nurse Practitioner Family; Visit Provider Hospitalist | DX: J44.9 Chronic obstructive pulmonary disease, unspecified (principal); J45.51 Severe persistent asthma with (acute) exacerbation; J18.9 Pneumonia, unspecified organism | CPT/HCPCS: 94640; 96372; 99212; J2930 ==

== ENCOUNTER 2022-06-21 20:21 | Emergency (ER) | payer OTHER, SELFPAY ==
[2022-06-21 21:07] VITALS: BP 121/63; PULSE 97; RESP 16; TEMP 36.8; O2SAT 97; BMI 21.6
--- NOTE | 2022-06-22 00:06 | PC.NURSE ---
pt not in waiting room at this time.
== END 2022-06-22 00:57 | disposition left against medical advice (07) ==
PROVIDERS: Emergency Provider Emergency Medicine
DX: N89.8 Other specified noninflammatory disorders of vagina (principal)
CPT/HCPCS: 99281; 99282

== ENCOUNTER 2022-08-01 17:41 | Observation (INO) | payer SELFPAY ==
--- NOTE | ~2022-08-01 | XR_ITS ---
EXAMINATION: XR CHEST CLINICAL INFORMATION: Shortness of breath COMPARISON: 04/07/2022 TECHNIQUE: Frontal view of the chest was obtained. FINDINGS: Clear lungs. No effusion or pneumothorax. Cardiomediastinal silhouette is within normal limits. XR/XR chest 1V IMPRESSION: Unremarkable examination.
[2022-08-01 17:49] VITALS: BP 103/71; PULSE 105; RESP 24; TEMP 36.7; O2SAT 96; BMI 28.6
--- NOTE | 2022-08-01 17:49 | ED.SOB ---
HPI - SOB/Dyspnea General Chief Complaint: Dyspnea Stated Complaint: Difficulty Breathing/ Ashtma/ Pneumonia? Time Seen by Provider: 08/01/22 17:54 Related Data Home Medications Medication Instructions Recorded Confirmed methadone 10 mg/mL oral concentrate 120 mg PO DAILY 11/30/21 08/02/22 nebulizers 05/23/22 albuterol sulfate 2.5 mg/3 mL 2.5 mg inhalation TID 08/01/22 08/01/22 (0.083 %) solution for nebulization clonazepam 2 mg tablet 1 tab PO BID PRN Anxiety 08/01/22 08/01/22 clonidine HCl 0.1 mg tablet 1 tab PO BID PRN Anxiety 08/01/22 08/01/22 clonidine HCl 0.2 mg tablet 1 tab PO BEDTIME 08/01/22 08/01/22 gabapentin 800 mg tablet 1 tab PO TID 08/01/22 08/01/22 omeprazole 40 mg capsule,delayed 40 mg PO DAILY PRN GI UPSET 08/01/22 08/01/22 release Previous Rx's Medication Instructions Recorded prazosin 2 mg capsule 2 mg PO BEDTIME 30 days #30 caps 09/18/21 fluticasone propionate 115 2 puff inhalation BID #12 grams 02/08/22 mcg-salmeterol 21 mcg/actuation HFA inhaler (Advair HFA) albuterol sulfate 90 mcg/actuation 2 puff inhalation QID PRN Dyspnea 02/09/22 aerosol inhaler (ProAir HFA) 30 days #8.5 grams Allergies Allergy/AdvReac Type Severity Reaction Status Date / Time latex [LATEX] Allergy Intermediate RASH Verified 06/21/22 21:10 adhesive tape [ADHESIVE TAPE] AdvReac Intermediate RASH Verified 06/21/22 21:10 [facility] Past Medical History Medical History Anxiety Asthma Asthma Asthma Bipolar disorder COVID-19 Crohn's disease Depression GERD (gastroesophageal reflux disease) Opioid use disorder Pneumonia due to COVID-19 virus Pneumonitis PTSD (post-traumatic stress disorder) Family History Family History Father Colon cancer Mother No problems noted. Brother Autism Sister Bipolar disorder Maternal Aunt Breast cancer Social History Social History Household Members: Significant Other Housing: Other Housing Other:: motel Do you presently have visiting nurse or other home services: No Alcohol intake: unknown Patient Tobacco Use Status: Former Tobacco user Cigarette Packs Per Day: 0.33 Cigarettes Per Day: 6.6 Years Smoked: 9 e-Cigarette/Vaping Use: Former Use Second Hand Smoke Exposure: Yes Substance Use Type: Heroin Advance Directives: Yes Advance Directives on File: Yes Advance Directives Date on File: 05/07/21 service: No Current occupational status: unemployed Cognitive needs: No Hearing needs: No Vision needs: No Physical Exam Vital Signs: Vital Signs: Last Vital Signs Temp 97.8 F 08/02/22 07:03 Pulse 83 08/02/22 07:03 Resp 16 08/02/22 07:03 BP 114/75 08/02/22 07:03 Pulse Ox 93 08/02/22 07:03 O2 Del Method 08/02/22 07:03 BMI result Body Mass Index 28.6 Course Course Course Narrative: This is a rapid medical exam. Deferred additional HPI, ROS, PE to primary provider. 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 Patient with tachypnea, audible wheezing, leaning forward in triage. Will need labs including blood cultures, lactic acid, CXR, viral swab, immediate bedding. Medications Administered Generic Name Dose Route Start Last Admin Trade Name Freq PRN Reason Stop Dose Admin Albuterol/Ipratropium 3 ml 08/01/22 20:00 08/01/22 20:27 Albuterol/Iprat 2.5/0.5mg 3 Ml Ampul.Neb INHALE 3 ml RQ4H WHILE AWAKE SHEILA Administration Albuterol/Ipratropium 3 ml 08/01/22 19:51 08/02/22 04:18 Albuterol/Iprat 2.5/0.5mg 3 Ml Ampul.Neb INHALE 3 ml RQ4H PRN Administration wheezing Insulin Human Lispro 0 unit 08/02/22 07:30 08/02/22 07:24 Insulin Lispro 100 Unit/Ml 3 Ml Vial SUBCUT Not Given QIDACHS SHEILA Protocol Methylprednisolone Sodium Succinate 40 mg 08/02/22 06:00 08/02/22 04:28 Methylprednisolone Sod Succ 40 Mg/Ml Vial IVPUSH 40 mg Q12H [facility] Administration Sodium Chloride 3 ml 08/02/22 00:00 08/02/22 00:59 0.9 % Sodium Chloride Flush 3 Ml Syringe IVFLUSH Not Given QSHIFT [facility] Discontinued Medications Generic Name Dose Route Start Last Admin Trade Name Pro PRN Reason Stop Dose Admin Albuterol Sulfate 7.5 mg/ 10 mg 08/01/22 18:11 08/01/22 18:19 Albuterol Sulfate 2.5 mg INHALE 08/01/22 18:12 10 mg ONCE ONE Administration Albuterol Sulfate 2.5 mg/ 5 mg 08/01/22 19:34 08/01/22 20:24 Albuterol Sulfate 2.5 mg INHALE 08/01/22 19:35 5 mg ONCE ONE Administration Albuterol/Ipratropium 3 ml 08/01/22 17:53 08/01/22 18:11 Albuterol/Iprat 2.5/0.5mg 3 Ml Ampul.Neb INHALE 08/01/22 17:54 3 ml ONCE ONE Administration Clonazepam 2 mg 08/01/22 21:42 08/01/22 21:58 Clonazepam 1 Mg Tablet PO 08/01/22 21:43 2 mg ONCE ONE Administration Clonidine HCl 0.2 mg 08/01/22 21:42 08/01/22 21:58 Clonidine Hcl 0.2 Mg Tablet PO 08/01/22 21:43 0.2 mg ONCE ONE Administration Protocol Gabapentin 800 mg 08/01/22 21:42 08/01/22 21:58 Gabapentin 400 Mg Capsule PO 08/01/22 21:43 800 mg ONCE ONE Administration Magnesium Sulfate 2 gm in 50 mls @ 50 mls/hr 08/01/22 18:14 08/01/22 19:26 Magnesium Sulfate/H2o IV 08/01/22 19:13 Infused ONCE ONE Infusion Promethazine HCl 12.5 mg/ 50.5 mls @ 202 mls/hr 08/02/22 03:56 08/02/22 07:16 Sodium Chloride IV 08/02/22 03:57 Infused ONCE ONE Infusion Methadone HCl 120 mg 08/01/22 22:12 08/01/22 22:50 Methadone Hcl 20 Mg/2 Ml Oral.Conc PO 08/01/22 22:13 120 mg ONCE ONE Administration Methylprednisolone Sodium Succinate 125 mg 08/01/22 18:14 08/01/22 18:24 Methylprednisolone Sod Succ 125 Mg/2 Ml Vial IVPUSH 08/01/22 18:15 125 mg ONCE ONE Administration Discharge Plan Discharge Clinical Impression: Asthma
--- NOTE | 2022-08-01 17:52 | ECG_ITS ---
Test Reason : SOB Blood Pressure : / mmHG Vent. Rate : 114 BPM Atrial Rate : 114 BPM P-R Int : 140 ms QRS Dur : 076 ms QT Int : 334 ms P-R-T Axes : 084 080 076 degrees QTc Int : 460 ms Sinus tachycardia Otherwise normal ECG When compared with ECG of 29-NOV-2021 22:13, No significant change was found Referred By: Sabina Butler Electronically Signed By:SLICK YEE MD
--- OUTSIDE RECORDS SUMMARY | 2022-08-01 18:04 | XMS_ITS | Continuity of Care Document ---
:1995 Author Organization [facility] Address [address] [place] [address]- Care Team Providers Name Role Phone Not on Staff, PCP Primary Care Physician Unavailable [id number] Date(s): 08/21/20 - 08/21/[address] [address]- Discharge Disposition: A-D/C Home Attending Physician: Urban Florez MD Admitting Physician: Urban Florez MD Referring Physician: Not on Staff, Referring MD Allergies, Adverse Reactions, Alerts Substance Reaction Severity Status Adhesive Bandage Unknown Active Latex Active Immunizations Given and Recorded Vaccine Date Status Refusal Reason tetanus/diphtheria/pertussis, acel(Tdap) 01/27/18 Given Not Given Vaccine Date Status Refusal Reason influenza virus vaccine, inactivated1 05/13/20 Not Given Parent Or Guardian Refuses 1Result Comment: Education provided Medications Aerochamber See Instructions, # 2 each, Maintenance, use with albuterol and symbicort inhalers, 03/14/19 19:35:42 EDT, Compound Start Date: 03/14/19 Status: Orderedalbuterol 0.083% inhalation solution 3 mL = 2.5 mg, Neb, Every 6 hours, PRN as needed for wheezing, # 25 each, 11 Refills, Maintenance, 04/01/19 14:28:32 EDT, Solution Start Date: 04/01/19 Stop Date: 03/26/20 Status: Orderedalbuterol 90 mcg/inh inhalation powder 2 puffs, Inhalation, Every 4 hours, PRN as needed, # 1 each, 11 Refills, Maintenance, 04/01/19 14:29:19 EDT, Powder, 2 puffs Inhalation Every 4 hours,x30 days,PRN:as needed Start Date: 04/01/19 Stop Date: 03/26/20 Status: OrderedAtivan 1 mg oral tablet 1 tablet = 1 mg, By Mouth, Daily, PRN as needed for anxiety, 0 Refills, Maintenance, 08/21/20 13:07:00 EST, Partial fill upon patient request if the prescription is for a schedule II opioid drug. Start Date: 08/21/20 Status: OrderedclonazePAM 0.5 mg oral tablet 0.5 tablet = 0.25 mg, By Mouth, Daily, # 15 tablet, 0 Refills, Maintenance, 05/17/20 15:19:00 EDT, Tablet Start Date: 05/17/20 Status: Orderedibuprofen 400 mg oral tablet 400 mg, 1, tablet, By Mouth, Every 8 hours, # 30 tablet, Refills 0, Tot. Refills 0, Acute 08/22/20 17:43:00 EST, 08/21/20 17:43:00 EST, Route to Pharmacy Electronically, [facility]-, Partial fill upon patient request if the pre... Start Date: 08/21/20 Stop Date: 08/22/20 Status: Orderedlactulose 10 gm/15 ml oral syrup 30 mL = 20 Gm, By Mouth, 3 times a day, # 480 mL, 0 Refills, Acute 08/22/20 17:30:00 EST, 08/21/20 17:30:00 EST, Syrup, [facility]-, Partial fill upon patient request if the prescription is for a schedule II opioid drug., 30 mL... Start Date: 08/21/20 Stop Date: 08/22/20 Status: OrderedLithium 2 tabs, By Mouth, Daily at bedtime, Refills 0, Maintenance, 08/21/20 13:06:00 EST, Partial fill uponpatient request if the prescription is for a schedule II opioid drug. Start Date: 08/21/20 Status: OrderedNarcan 4 mg/0.1 mL nasal spray See Instructions, 4 mg Naris, Left Once for, # 2 each, 0 Refills, Maintenance, 05/17/20 15:17:00 EDT Start Date: 05/17/20 Status: Orderedprazosin 1 mg oral capsule 1 mg, 1, capsule, By Mouth, Daily at bedtime, For PTSD, # 30 capsule, Refills 2, Tot. Refills 2, Maintenance, 04/01/19 14:49:19 EDT, Route to Pharmacy Electronically, [id number], [facility]/pharmacy #[id number] Start Date: 04/01/19 Stop Date: 06/30/19 Status: OrderedRisperidone By Mouth, 2 times a day, 0 Refills, Maintenance, 08/21/20 13:06:00 EST, Partial fill upon patient request if the prescription is for a schedule II opioid drug. Start Date: 08/21/20 Status: OrderedSuboxone 8 mg-2 mg sublingual film 2 films, Sublingual, Daily, dissolve under the tongue TIM [id number], # 8 film, 0 Refills, Maintenance, 05/17/20 15:17:00 EDT Start Date: 05/17/20 Status: OrderedToradol Inj 10 mg, Injection, IV Push Slowly, Once, STAT, 08/21/20 15:56:00 EST, Stop date 08/21/20 15:56:00 EST Start Date: 08/21/20 Stop Date: 08/21/20 Status: CompletedtraZODone 50 mg oral tablet 100 mg, 2, tablet, By Mouth, Daily at bedtime, # 60 tablet, Refills 1, Tot. Refills 1, Maintenance, 03/14/19 19:37:33 EDT, Route to Pharmacy Electronically, [id number], [facility]/pharmacy #[id number] Start Date: 03/14/19 Stop Date: 05/13/19 Status: Ordered Problem List Condition Effective Dates Status Health Status Informant Anxiety(Confirmed) Active Asthma, persistent, severity to be Active determined(Confirmed) Insomnia(Confirmed) Active Polysubstance abuse(Confirmed) Active PTSD (post-traumatic stress Active disorder)(Confirmed) Results Radiology Reports Exam Date Time Procedure Performing Provider Status 08/21/20 3:33 PM Abdomen AP Jack Cortes; Hilario (Verified) Notes:(Abdomen AP) Reason For Exam: PainRESULT: XR Abdomen AP XR Abdomen AP INDICATION/CLINICAL QUESTION: Hx of Present Illness: abd pain and constipation. No BM in 6 days.; Reason: Pain; Clinical Question(s): Obstruction; Special Instructions: Flat. Obstruction COMPARISON: None FINDINGS: A large amount of stool is present throughout the colon with mild distention of the colon. No dilated small bowel is evident. No evidence of pneumoperitoneum. No organomegaly, masses or calcifications. No acute bone findings. Contrast is noted within the renal collecting system and ureters as well as the bladder. Ovoid radiodensities projecting over the pelvis are consistent with capsules within the colon as shown by the preceding CT. IMPRESSION: Large amount of stool throughout a mildly distended colon. The appearance is similar to the preceding CT. WSN: [id number] Ordering Physician: Mike Flores Dictated By: Mike Castillo MD Dictated Date/Time: 08/21/20 3:44 pm Reviewed By: Mike Castillo MD Signed By: Mike Castillo MD Signed Date/Time: 08/21/20 3:44 pm Transcribed By: ARLINE Transcribed Date/Time: 08/21/20 3:42 pm Vital Signs Most recent to oldest 1 2 3 [Reference Range]: Height 165 cm (08/21/20 12:57 PM) Weight 64.6 kg (08/21/20 12:57 PM) Oxygen Saturation [94-100 98 % 98 % %] (08/21/20 4:53 PM) (08/21/20 12:57 PM) Pulse Rate [55-90 bpm] 70 bpm 93 bpm (08/21/20 4:53 PM) *H* (08/21/20 12:57 PM) Blood Pressure 113/73 mm Hg 108/75 mm Hg [90-138/55-84 mm Hg] (08/21/20 4:53 PM) (08/21/20 12:57 PM) Respiratory Rate [16-30 16 br/min 16 br/min 16 br/mi n br/min] (08/21/20 4:53 PM) (08/21/20 4:48 PM) (08/21/20 12:57 PM) Temperature [96.8-100.4 98.2 DegF DegF] (08/21/20 12:57 PM) Mode of Delivery (Oxygen) Room air Room air (08/21/20 4:53 PM) (08/21/20 12:57 PM) Blood pressure sites Arm, left Arm, left (08/21/20 4:53 PM) (08/21/20 12:57 PM) Temperature Route Temporal (12/28/20 12:57 PM) Dry Weight 64.6 kg (08/21/20 12:57 PM) Weight Obtained Via Standing scale (08/21/20 12:57 PM) Dry Weight Obtained Via Standing scale (08/21/20 12:57 PM) Social History Social History Type Response Smoking Status 10 or more cigarettes (1/2 p ack or more)/day in last 30 days entered on: 08/21/20 Sex
--- OUTSIDE RECORDS SUMMARY | 2022-08-01 18:04 | XMS_ITS | Continuity of Care Document ---
:1995 Author Organization [facility] Address [address] [place] [address]- Care Team Providers Name Role Phone Not on Staff, PCP Primary Care Physician Unavailable Encounter [facility] Date(s): 05/12/20 - 05/15/20 [facility] [address] [place] [address] [facility] Encounter Diagnosis Opiate withdrawal (Final) - 05/12/20 Alcohol withdrawal (Final) - 05/12/20 Benzodiazepine withdrawal (Final) - 05/12/20 Discharge Disposition: A-D/C Half-Way, Snf, or Longterm Fac Attending Physician: Natalio Jama MD Admitting Physician: Hansa Rocha MD Referring Physician: Not on Staff, Referring [...] 1 tablet = 1 mg, By Mouth, 3 times a day, PRN for anxiety, # 10 tablet, 0 Refills, Acute 05/16/20 9:23:00 EDT, 05/15/20 9:23:00 EDT, Tablet Start Date: 05/15/20 Stop Date: 05/16/20 Status: OrderedFLUoxetine 20 mg oral capsule 20 mg, 1, capsule, By Mouth, Daily, # 30 capsule, Refills 2, Tot. Refills 2, Maintenance, 04/01/19 15:08:08 EDT, Route to Pharmacy Electronically, [id number], [facility]/pharmacy #[id number], replaces citalopram. Please dc citalopram Start Date: 04/01/19 Stop Date: 06/30/19 Status: Orderedfolic acid 1 mg oral tablet 1 mg, 1, tablet, By Mouth, Daily, # 30 tablet, Refills 0, Tot. Refills 0, Maintenance, 05/15/20 9:21:00 EDT, Print Requisition Start Date: 05/15/20 Status: Orderedmontelukast 10 mg oral tablet 10 mg, 1, tablet, By Mouth, Daily, # 30 tablet, Refills 11, Tot. Refills 11, Maintenance, 04/01/19 15:29:39 EDT, Route to Pharmacy Electronically, [id number], [facility]/pharmacy #[id number] Start Date: 04/01/19 Stop Date: 03/26/20 Status: Orderedprazosin 1 mg oral capsule 1 mg, 1, capsule, By Mouth, Daily at bedtime, For PTSD, # 30 capsule, Refills 2, Tot. Refills 2, Maintenance, 04/01/19 14:49:19 EDT, Route to Pharmacy Electronically, [id number], [facility]/pharmacy #[id number] Start Date: 04/01/19 Stop Date: 06/30/19 Status: OrderedSymbicort 160mcg/4.5mcg Inhaler 2, puffs, Inhalation, 2 times a day, # 1 each, Refills 11, Tot. Refills 11, Maintenance, 03/14/19 19:35:32 EDT, Inhaler, Route to Pharmacy Electronically, [id number], [facility]/pharmacy #[id number] Start Date: 03/14/19 Stop Date: 03/08/20 Status: Orderedthiamine 100 mg oral tablet 100 mg, 1, tablet, By Mouth, Daily, # 30 tablet, Refills 0, Tot. Refills 0, Acute 05/16/20 9:21:00 EDT, 05/15/20 9:21:00 EDT, Print Requisition Start Date: 05/15/20 Stop Date: 05/16/20 Status: Orderedtiotropium 1.25 mcg/inh inhalation aerosol 2 puffs, Inhalation, Daily, Replaces inhalation capsule, # 1 each, 11 Refills, Maintenance, 04/01/1915:07:01 EDT Start Date: 04/01/19 Stop Date: 03/26/20 Status: OrderedtraZODone 50 mg oral tablet 100 mg, 2, tablet, By Mouth, Daily at bedtime, # 60 tablet, Refills 1, Tot. Refills 1, Maintenance, 03/14/19 19:37:33 EDT, Route to Pharmacy Electronically, [id number], [facility]/pharmacy #[id number] Start Date: 03/14/19 Stop Date: 05/13/19 Status: Ordered Problem List Condition Effective Dates Status Health Status Informant Anxiety(Confirmed) Active Asthma, persistent, severity to be Active determined(Confirmed) Insomnia(Confirmed) Active Polysubstance abuse(Confirmed) Active PTSD (post-traumatic stress Active disorder)(Confirmed) Results Radiology Reports Exam Date Time Procedure Performing Provider Status 05/12/20 7:37 PM Chest Portable Landrau , Aman; Auth (Verified) Notes:(Chest Portable) Reason For Exam: Shortness of BreathRESULT: Chest Portable Chest Portable Reason: Shortness of Breath; Clinical Question(s): Pulmonary Edema COMPARISON: Multiple priors. FINDINGS: LINES AND TUBES: None. LUNGS AND PLEURA: Clear lungs. Normal pulmonary vascularity. No pleural effusion. No pneumothorax. HEART, MEDIASTINUM AND YESICA: Heart is normal in size. Normal mediastinal and hilar contour. BONES AND SOFT TISSUES: No acute abnormality. IMPRESSION: No acute abnormality. WSN: [id number] Ordering Physician: Yahir Woodward Dictated By: Ivone Rg MD, V Dictated Date/Time: 05/12/20 7:41 pm Reviewed By: Ivone Rg MD, V Signed By: Ivone Rg MD, V Signed Date/Time: 05/12/20 7:41 pm Transcribed By: ARLINE Transcribed Date/Time: 05/12/20 7:40 pm Exam Date Time Procedure Performing Provider Status 05/11/20 9:57 PM Chest 2 Views Frontal and Lat Kyrie Green; Au th (Verified) Notes:(Chest 2 Views Frontal and Lat) Reason For Exam: Shortness of Breath RESULT: Chest 2 Views Frontal and Lat Chest 2 Views Frontal and Lat Refer to EMR; Hx of Present Illness: pt reports detoxing from fentanyl and PCP, last took this AM, +vomiting, also reports she hasn't been able to take any of her medications for anxiety since she's been in court all day. adds she has been having trouble with her asthma and feeling; Reason: Shortness of Breath; Clinical Question(s): Pneumonia; Special Instructions: This is a protocol film and radi COMPARISON: None. FINDINGS: LINES AND TUBES: None. LUNGS AND PLEURA: Clear lungs. Normal pulmonary vascularity. No pleural effusion. No pneumothorax. HEART, MEDIASTINUM AND YESICA: Heart is normal in size. Normal mediastinal and hilar contour. BONES AND SOFT TISSUES: No acute abnormality. IMPRESSION: No acute abnormality. WSN: [id number] Ordering Physician: Odalys Sutton Dictated By: Apollo Jett MD Dictated Date/Time: 05/11/20 10:11 p Reviewed By: Apollo Jett MD Signed By: Apollo Jett MD Signed Date/Time: 05/11/20 10:11 pm Transcribed By: ARLINE Transcribed Date/Time: 05/11/20 10:11 pm Vital Signs Most recent to oldest 1 2 3 [Reference Range]: Height 165 cm 165 cm 165 cm (05/15/20 7:38 AM) (05/14/20 4:04 PM) (05/14/20 11: 21 AM) Weight 63.2 kg (05/12/20 4:07 PM) Oxygen Saturation [94-100 %] 96 % 95 % 98 % (05/15/20 7:38 AM) (05/15/20 4:00 AM) (05/14/20 10: 00 PM) Pulse Rate [55-90 bpm] 91 bpm 98 bpm 78 bpm *H* *H* (05/14/20 10:00 P M) (05/15/20 7:38 AM) (05/15/20 4:00 AM) Body Mass Index [18.5-24.99] 23.21 (05/12/20 4:07 PM) Blood Pressure [90-138/55-84 122/75 mm Hg 124/82 mm Hg 112 /68 mm Hg mm Hg] (05/15/20 7:38 AM) (05/15/20 4:00 AM) (05/14/20 10: 00 PM) Respiratory Rate [16-30 18 br/min 18 br/min 18 br/mi n br/min] (05/15/20 7:38 AM) (05/15/20 4:00 AM) (05/15/20 3:1 5 AM) Temperature [96.8-100.4 DegF] 97.4 DegF 98.0 DegF 98 .0 DegF (05/15/20 7:38 AM) (05/15/20 4:00 AM) (05/14/20 10: 00 PM) Liters per Minute 2 L/min 2 L/min 2 L/min (05/14/20 4:04 PM) (05/14/20 11:21 AM) (05/14/20 8: 09 AM) Mode of Delivery (Oxygen) Room air Room air Room a ir (05/15/20 7:38 AM) (05/15/20 4:00 AM) (05/14/20 10: 00 PM) Blood pressure sites Arm, left Arm, right Arm, right (05/15/20 7:38 AM) (05/15/20 4:00 AM) (05/14/20 10: 00 PM) Temperature Route Oral Oral Oral (05/15/20 7:38 AM) (05/15/20 4:00 AM) (05/14/20 10: 00 PM) Dry Weight 63.2 kg (05/12/20 4:07 PM) Weight Obtained Via Bed scale (05/12/20 4:07 PM) Dry Weight Obtained Via Bed scale (05/12/20 4:07 PM) Social History Social History Type Response Smoking Status Never (less than 100 in life time) entered on: 02/09/19 Sex
--- OUTSIDE RECORDS SUMMARY | 2022-08-01 18:04 | XMS_ITS | Continuity of Care Document ---
:1995 Author Organization [facility] Address [address] [address]- Care Team Providers Name Role Phone Not on Staff, PCP Primary Care Physician Unavailable Encounter [facility] Date(s): 11/23/19 - 01/21/20 [facility] [address] [place] [address] [facility] Attending Physician: Jose De Jesus Bustamante MD Referring Physician: Odalis Jiang MD Allergies, Adverse Reactions, Alerts Substance Reaction Severity Status Adhesive Bandage Unknown Active Latex Active Immunizations Given and Recorded Vaccine Date Status Refusal Reason tetanus/diphtheria/pertussis, acel(Tdap) 01/27/18 Given Medications Aerochamber See Instructions, # 2 each, [...] Date: 04/01/19 Stop Date: 03/26/20 Status: OrderedAtivan 0.5 mg oral tablet 1 tablet = 0.5 mg, By Mouth, 3 times a day, PRN Anxiety, for pcp dr mora. [facility] # 50 tablet, 0 Refills, Maintenance, 04/01/19 14:50:26 EDT, Tablet Start Date: 04/01/19 Stop Date: 05/01/19 Status: OrderedFLUoxetine 20 mg oral capsule 20 mg, 1, capsule, By Mouth, Daily, # 30 capsule, Refills 2, Tot. Refills 2, Maintenance, 04/01/19 15:08:08 EDT, Route to Pharmacy Electronically, [id number], [facility]/pharmacy #[id number], replaces citalopram. Please dc citalopram Start Date: 04/01/19 Stop Date: 06/30/19 Status: Orderedmontelukast 10 mg oral tablet 10 mg, 1, tablet, By Mouth, Daily, # 30 tablet, Refills 11, Tot. Refills 11, Maintenance, 04/01/19 15:29:39 EDT, Route to Pharmacy Electronically, [id number], [facility]/pharmacy #[id number] Start Date: 04/01/19 Stop Date: 03/26/20 Status: Orderedprazosin 1 mg oral capsule 1 mg, 1, capsule, By Mouth, Daily at bedtime, For PTSD, # 30 capsule, Refills 2, Tot. Refills 2, Maintenance, 04/01/19 14:49:19 EDT, Route to Pharmacy Electronically, [id number], [facility]/pharmacy #[id number] Start Date: 04/01/19 Stop Date: 06/30/19 Status: OrderedSymbicort 160mcg/4.5mcg Inhaler 2, puffs, Inhalation, 2 times a day, # 1 each, Refills 11, Tot. Refills 11, Maintenance, 03/14/19 19:35:32 EDT, Inhaler, Route to Pharmacy Electronically, [id number], [facility]/pharmacy #[id number] Start Date: 03/14/19 Stop Date: 03/08/20 Status: Orderedtiotropium 1.25 mcg/inh inhalation aerosol 2 puffs, Inhalation, Daily, Replaces inhalation capsule, # 1 each, 11 Refills, Maintenance, 04/01/1915:07:01 EDT Start Date: 04/01/19 Stop Date: 03/26/20 Status: OrderedtraZODone 50 mg oral tablet 100 mg, 2, tablet, By Mouth, Daily at bedtime, # 60 tablet, Refills 1, Tot. Refills 1, Maintenance, 03/14/19 19:37:33 EDT, Route to Pharmacy Electronically, [id number], [facility]/pharmacy #[id number] Start Date: 03/14/19 Stop Date: 05/13/19 Status: Ordered Problem List Condition Effective Dates Status Health Status Informant Anxiety(Confirmed) Active Asthma, persistent, severity to be Active determined(Confirmed) Insomnia(Confirmed) Active Polysubstance abuse(Confirmed) Active PTSD (post-traumatic stress Active disorder)(Confirmed) Social History Social History Type Response Smoking Status Never (less than 100 in life time) entered on: 02/09/19 Sex
--- OUTSIDE RECORDS SUMMARY | 2022-08-01 18:04 | XMS_ITS | Continuity of Care Document ---
:1995 Author Organization [facility] Address [address] [place] [id number]- Care Team Providers Name Role Phone Not on Staff, PCP Primary Care Physician Unavailable Encounter [facility] Date(s): 12/22/19 - 01/21/20 [facility] [address] [place] [id number]- [facility] Attending Physician: Agnes Streeter Admitting Physician: Agnes Streeter Referring Physician: Agnes Streeter Referring Physician: Chasity Jaimes Allergies, Adverse Reactions, Alerts Substance Reaction Severity [...] for pcp dr mora. pls [facility] # 50 tablet, 0 Refills, Maintenance, 04/01/19 14:50:26 EDT, Tablet Start Date: 04/01/19 Stop Date: 05/01/19 Status: OrderedFLUoxetine 20 mg oral capsule 20 mg, 1, capsule, By Mouth, Daily, # 30 capsule, Refills 2, Tot. Refills 2, Maintenance, 04/01/19 15:08:08 EDT, Route to Pharmacy Electronically, [id number], [facility]/pharmacy #[id number], replaces citalopram. Please dc citalopram Start Date: 04/01/19 Stop Date: 06/30/19 Status: Orderedmontelukast 10 mg oral tablet 10 mg, 1, tablet, By Mouth, Daily, # 30 tablet, Refills 11, Tot. Refills 11, Maintenance, 04/01/19 15:29:39 EDT, Route to Pharmacy Electronically, [id number], [facility]/pharmacy #[id number] Start Date: 04/01/19 Stop Date: 03/26/20 Status: Orderedprazosin 1 mg oral capsule 1 mg, 1, capsule, By Mouth, Daily at bedtime, For PTSD, # 30 capsule, Refills 2, Tot. Refills 2, Maintenance, 04/01/19 14:49:19 EDT, Route to Pharmacy Electronically, [id number], [facility]/pharmacy #[id number] Start Date: 04/01/19 Stop Date: 06/30/19 Status: OrderedSymbicort 160mcg/4.5mcg Inhaler 2, puffs, Inhalation, 2 times a day, # 1 each, Refills 11, Tot. Refills 11, Maintenance, 03/14/19 19:35:32 EDT, Inhaler, Route to Pharmacy Electronically, [id number], [facility]/pharmacy #[id number] Start Date: 03/14/19 Stop Date: 03/08/20 [...] 03/14/19 19:37:33 EDT, Route to Pharmacy Electronically, [id number], [facility]/pharmacy #[id number] Start Date: 03/14/19 Stop Date: [...]
--- OUTSIDE RECORDS SUMMARY | 2022-08-01 18:04 | XMS_ITS | Continuity of Care Document ---
:1995 Author Organization [facility] Address [address] [place] [address]- Care Team Providers Name Role Phone Not on Staff, PCP Primary Care Physician Unavailable [id number] Date(s): 03/02/21 - 03/05/[address] [address] Discharge Disposition: A-D/C Home Attending Physician: Carloz MACKEY, So Arshad Admitting Physician: Miles MACKEY, Dimple Referring Physician: Triston Barnes MD Allergies, Adverse Reactions, Alerts Substance Reaction Severity Status Adhesive Bandage Unknown Active Latex Active Immunizations Given and Recorded Vaccine Date Status Refusal Reason tetanus/diphtheria/pertussis, acel(Tdap) 01/27/18 Given Not Given Vaccine Date Status Refusal Reason influenza virus vaccine, inactivated1 05/13/20 Not Given Parent Or Guardian Refuses 1Result Comment: Education provided Medications Advair Diskus 250 mcg-50 mcg inhalation powder 1, inhalation, Inhalation, 2 times a day, rinse mouth and throat after use, # 1 each, Refills 1, Tot. Refills 1, Maintenance, 03/05/21 9:07:00 EDT, Powder, Route to Pharmacy Electronically, NCPDP_[id number], [facility], 165, c... Start Date: 03/05/21 Stop Date: 05/04/21 Status: OrderedAerochamber See Instructions, # 2 each, Maintenance, use with albuterol and symbicort inhalers, 03/14/19 19:35:42 EDT, Compound Start Date: 03/14/19 Status: Orderedalbuterol 0.083% inhalation solution 3 mL = 2.5 mg, BAND Nebulizer, 4 times a day, PRN Wheezing/Shortness of Breath, # 100 each, 1 Refills, Maintenance, 03/05/21 9:09:00 EDT, Inhalation Solution, Partial fill upon patient request if the prescription is for a schedule II opioid drug., 165... Start Date: 03/05/21 Stop Date: 05/04/21 Status: Orderedalbuterol 90 mcg/inh inhalation powder 2 puffs, Inhalation, Every 4 hours, PRN as needed, # 1 each, 11 Refills, Maintenance, 04/01/19 14:29:19 EDT, Powder, 2 puffs Inhalation Every 4 hours,x30 days,PRN:as needed Start Date: 04/01/19 Stop Date: 03/26/20 Status: OrderedcloNIDine 0.1 mg oral tablet 0.1 mg, 1, tablet, By Mouth, 3 times a day, PRN, Refills 0, Maintenance, Anxiety, 03/02/21 5:20:00 EDT, Partial fill upon patient request if the prescription is for a schedule II opioid drug. Start Date: 03/02/21 Status: Orderedcyclobenzaprine 10 mg oral tablet 7.5 mg, Tablet, By Mouth, 03/05/21 9:00:00 EDT Start Date: 03/05/21 Stop Date: 03/05/21 Status: Completedcyclobenzaprine 5 mg oral tablet 1.5 tablet = 7.5 mg, By Mouth, 3 times a day, as needed, 0 Refills, Maintenance, 03/02/21 5:20:00 EDT, Tablet, Partial fill upon patient request if the prescription is for a schedule II opioid drug. Start Date: 03/02/21 Status: Ordereddoxepin 10 mg oral capsule 1 capsule = 10 mg, By Mouth, Daily at bedtime, 0 Refills, Maintenance, 03/02/21 5:39:00 EDT, Partialfill upon patient request if the prescription is for a schedule II opioid drug. Start Date: 03/02/21 Status: Orderedgabapentin 100 mg oral capsule 400 mg, 4, capsule, By Mouth, 3 times a day, Refills 0, Maintenance, 03/02/21 5:35:00 EDT, Partial fill upon patient request if the prescription is for a schedule II opioid drug. Start Date: 03/02/21 Status: Orderedgabapentin 400 mg oral capsule 400 mg, Capsule, By Mouth, 03/05/21 9:00:00 EDT Start Date: 03/05/21 Stop Date: 03/05/21 Status: CompletedMelatonin 10 mg oral tablet 1 tablet = 10 mg, By Mouth, Daily at bedtime, 0 Refills, Maintenance, 03/02/21 18:58:00 EDT, Partialfill upon patient request if the prescription is for a schedule II opioid drug. Start Date: 03/02/21 Status: Orderednaproxen 250 mg oral tablet 500 mg, 2, tablet, By Mouth, 2 times a day, # 60 tablet, Refills 0, Maintenance, 03/02/21 18:44:00 EDT, Partial fill upon patient request if the prescription is for a schedule II opioid drug. Start Date: 03/02/21 Status: OrderedNarcan 4 mg/0.1 mL nasal spray See Instructions, 4 mg Naris, Left Once for, # 2 each, 0 Refills, Maintenance, 05/17/20 15:17:00 EDT Start Date: 05/17/20 Status: Orderedomeprazole 40 mg oral enteric coated capsule 1 capsule = 40 mg, By Mouth, Daily, # 30 capsule, 0 Refills, Maintenance, 03/02/21 18:45:00 EDT, EC Capsule, Partial fill upon patient request if the prescription is for a schedule II opioid drug. Start Date: 03/02/21 Status: Orderedprazosin 1 mg oral capsule 2 mg, Capsule, By Mouth, 03/04/21 21:00:00 EDT Start Date: 03/04/21 Stop Date: 03/04/21 Status: Completedprazosin 1 mg oral capsule 1 mg, Capsule, By Mouth, 03/05/21 9:00:00 EDT Start Date: 03/05/21 Stop Date: 03/05/21 Status: Completedprazosin 1 mg oral capsule 1 mg, 1, capsule, By Mouth, Daily at bedtime, For PTSD, # 30 capsule, Refills 2, Tot. Refills 2, Maintenance, 04/01/19 14:49:19 EDT, Route to Pharmacy Electronically, [id number], [facility]/pharmacy #[id number] Start Date: 04/01/19 Stop Date: 06/30/19 Status: Orderedprazosin 2 mg oral capsule 1 capsule = 2 mg, By Mouth, Daily at bedtime, 0 Refills, Maintenance, 03/02/21 5:22:00 EDT, Partial fill upon patient request if the prescription is for a schedule II opioid drug. Start Date: 03/02/21 Status: OrderedpredniSONE 10 mg oral tablet See Instructions, 4 tablets daily for 1 week, followed by 3 tablets daily for 1 week, 2 tabs daily for 1 week, 1 tablet daily for 1 week. Stop, # 67 tablet, 0 Refills, Maintenance, 03/05/21 9:11:00 EDT, Tablet, Partial fill upon patient request if th... Start Date: 03/05/21 Status: OrderedRisperDAL 0.5 mg oral tablet 0.5 mg, 1, tablet, By Mouth, Daily at bedtime, # 30 tablet, Refills 0, Maintenance, 03/02/21 18:56:00 EDT, Partial fill upon patient request if the prescription is for a schedule II opioid drug. Start Date: 03/02/21 Status: OrderedRisperidone = 0.25 mg, By Mouth, Daily in AM, 0 Refills, Maintenance, 08/21/20 13:06:00 EST, Partial fill upon patient request if the prescription is for a schedule II opioid drug. Start Date: 08/21/20 Status: OrderedSuboxone 8 mg-2 mg sublingual film 1 film, Sublingual, 2 times a day, dissolve under the tongue. 8 a and 4 pm, 0 Refills, Maintenance, 03/02/21 5:32:00 EDT, Film, Partial fill upon patient request if the prescription is for a schedule II opioid drug. Start Date: 03/02/21 Status: OrderedSuboxone 8 mg-2 mg sublingual film 2 films, Sublingual, Daily, dissolve under the tongue TIM [id number], # 8 film, 0 Refills, Maintenance, 05/17/20 15:17:00 EDT Start Date: 05/17/20 Status: OrderedtraZODone 50 mg oral tablet 50 mg, 1, tablet, By Mouth, Daily at bedtime, # 30 tablet, Refills 1, Tot. Refills 1, Maintenance, 03/14/19 19:37:33 EDT, Route to Pharmacy Electronically, [facility]/pharmacy #[id number] Start Date: 03/14/19 Stop Date: 05/13/19 Status: OrderedZoloft 50 mg oral tablet 1 tablet = 50 mg, By Mouth, Daily, 0 Refills, Maintenance, 03/02/21 5:30:00 EDT, Tablet, Partial fill upon patient request if the prescription is for a schedule II opioid drug. Start Date: 03/02/21 Status: Ordered Problem List Condition Effective Dates Status Health Status Informant Anxiety(Confirmed) Active Asthma, persistent, severity to be Active determined(Confirmed) Insomnia(Confirmed) Active Polysubstance abuse(Confirmed) Active PTSD (post-traumatic stress Active disorder)(Confirmed) Results Orders for Microbiology Reports Name Date Blood Culture 03/02/21 Blood Culture #2 03/02/21 Microbiology Reports TEST:Blood Culture, Second Order STATUS:Unauthenticated BODY SITE: SOURCE:Blood COLLECTED DATE/TIME:03/02/21 1:46 AMBlood Culture, Second Order SPECIMEN DESCRIPTION : BLOOD L F ARM SPECIAL REQUESTS : NONE CULTURE : NO GROWTH 3 DAYS REPORT STATUS : PRELIMINARY REPORT TEST:Blood Culture STATUS:Unauthenticated BODY SITE: SOURCE:Blood COLLECTED DATE/TIME:03/02/21 1:40 AMBlood Culture SPECIMEN DESCRIPTION : BLOOD R HAND SPECIAL REQUESTS : NONE CULTURE : NO GROWTH 3 DAYS REPORT STATUS : PRELIMINARY REPORT Radiology Reports Exam Date Time Procedure Performing Provider Status 03/04/21 10:59 AM Chest 2 Views Frontal and Candy Saravia R; Auth (Verified) Lat Notes:(Chest 2 Views Frontal and Lat) Reason For Exam: CoughRESULT: Chest 2 Views Frontal and Lat Chest 2 Views Frontal and Lat REASON: Cough; Clinical Question(s): Pneumonia COMPARISON: 03/02/2021 FINDINGS: LINES AND TUBES: None. LUNGS AND PLEURA: Clear lungs. Normal pulmonary vascularity. No pleural effusion. No pneumothorax. HEART, MEDIASTINUM AND YESICA: Heart is normal in size. Normal mediastinal and hilar contour. BONES AND SOFT TISSUES: No acute abnormality. IMPRESSION: No evidence of acute abnormality. WSN: [id number] Ordering Physician: So Carty Dictated By: Chaitanya Cleaning MD Dictated Date/Time: 03/04/21 2:29 pm Reviewed By: Chaitanya Cleaning MD Signed By: Chaitanya Cleaning MD Signed Date/Time: 03/04/21 2:29 pm Transcribed By: ARLINE Transcribed Date/Time: 03/04/21 2:28 pm Exam Date Time Procedure Performing Provider Status 03/02/21 12:57 AM Chest Portable Candy Saravia (Ve rified) Notes:(Chest Portable) Reason For Exam: Shortness of BreathRESULT: Chest Portable Chest Portable upright at 12:48 AM Reason: Shortness of Breath; Clinical Question(s): Pneumonia COMPARISON: Multiple priors, the most recent 05/12/2020 FINDINGS: LINES AND TUBES: None. LUNGS AND PLEURA: Clear lungs. Normal pulmonary vascularity. No pleural effusion. No pneumothorax. HEART, MEDIASTINUM AND YESICA: Heart is normal in size. Normal upper mediastinal and hilar contour. BONES AND SOFT TISSUES: Mild mid to lower thoracic dextroscoliosis. IMPRESSION: No acute abnormality. Mid to lower thoracic dextroscoliosis. WSN: [id number] Ordering Physician: Triston Barnes Dictated By: Boone Yost MD Dictated Date/Time: 03/02/21 7:35 am Reviewed By: Boone Yost MD Signed By: Boone Yost MD Signed Date/Time: 03/02/21 7:35 am Transcribed By: ARLINE Transcribed Date/Time: 03/02/21 7:32 am Vital Signs Most recent to oldest 1 2 3 [Reference Range]: Height 165 cm 165 cm 165 cm (03/05/21 5:56 AM) (03/04/21 3:16 PM) (03/04/21 5:4 4 AM) Weight 82 kg 82 kg 82 kg (03/02/21 6:12 AM) (03/02/21 5:59 AM) (03/02/21 5:42 A M) Oxygen Saturation [94-100 97 % 97 % 98 % %] (03/05/21 5:56 AM) (03/04/21 8:00 PM) (03/04/21 3:1 6 PM) Pulse Rate [55-90 bpm] 72 bpm 82 bpm 88 bpm (03/05/21 5:56 AM) (03/04/21 5:44 AM) (03/03/21 8:0 6 PM) Body Mass Index 30.12 30.12 30.12 [18.5-24.99] *>HHI* *>HHI* *>HHI* (03/02/21 6:12 AM) (03/02/21 5:59 AM) (03/02/21 5:42 A M) Blood Pressure 127/90 mm Hg 127/90 mm Hg 134/88 mm Hg [90-138/55-84 mm Hg] (03/05/21 8:21 AM) (03/05/21 5:56 AM) ( 8:57 PM) Respiratory Rate [16-30 18 br/min 18 br/min 18 br/mi n br/min] (03/05/21 8:21 AM) (03/05/21 8:21 AM) (03/05/21 5:5 6 AM) Temperature [96.8-100.4 98.6 DegF 98.4 DegF 98.0 Deg F DegF] (03/05/21 5:56 AM) (03/04/21 8:00 PM) (03/04/21 3:1 6 PM) Liters per Minute 2 L/min 2 L/min 2 L/min (03/03/21 6:00 AM) (03/03/21 5:00 AM) (03/03/21 4:0 0 AM) Mode of Delivery (Oxygen) Room air Room air Room a ir (03/05/21 5:56 AM) (03/04/21 8:00 PM) (03/04/21 3:1 6 PM) Blood pressure sites Arm, left Arm, left Arm, left (03/05/21 5:56 AM) (03/04/21 8:00 PM) (03/04/21 3:1 6 PM) Temperature Route Oral Oral Oral (03/05/21 5:56 AM) (03/04/21 8:00 PM) (03/04/21 3:1 6 PM) Dry Weight 82 kg 82 kg 82 kg (03/02/21 6:12 AM) (03/02/21 5:59 AM) (03/02/21 5:42 A M) Weight Obtained Via Standing scale Patient/family stated (03/02/21 2:15 PM) (03/02/21 1:04 AM) Dry Weight Obtained Via Standing scale Patient/family stated (03/02/21 2:15 PM) (03/02/21 1:04 AM) Social History Social History Type Response Smoking Status 10 or more cigarettes (1/2 p ack or more)/day in last 30 days entered on: 08/21/20 Sex
--- OUTSIDE RECORDS SUMMARY | 2022-08-01 18:04 | XMS_ITS | Continuity of Care Document ---
:1995 Author Organization [facility] Address [address] [place] [address]- Care Team Providers Name Role Phone Not on Staff, PCP Primary Care Physician Unavailable Encounter [facility] Date(s): 05/17/20 - 05/17/[address] [address]- [facility] Encounter Diagnosis Starvation ketoacidosis (Final) - 05/17/20 Discharge Disposition: A-D/C Long-Term, Fdc, or Penitentiary Fac Attending Physician: Ny Logan MD Admitting Physician: Ny Logan MD Referring Physician: Not on Staff, Referring [...] Start Date: 04/01/19 Stop Date: 03/26/20 Status: OrderedclonazePAM 0.5 mg oral tablet 0.5 tablet = 0.25 mg, By Mouth, Daily, # 15 tablet, 0 Refills, Maintenance, 05/17/20 15:19:00 EDT, Tablet Start Date: 05/17/20 Status: OrderedFLUoxetine 20 mg oral capsule 20 mg, 1, capsule, By Mouth, Daily, # 30 capsule, Refills 2, Tot. Refills 2, Maintenance, 04/01/19 15:08:08 EDT, Route to Pharmacy Electronically, [id number], [facility]/pharmacy #[id number], replaces citalopram. Please dc [...] 04/01/19 15:29:39 EDT, Route to Pharmacy Electronically, [id number], [facility]/pharmacy #[id number] Start Date: 04/01/19 Stop Date: 03/26/20 Status: OrderedNarcan 4 mg/0.1 mL nasal spray See Instructions, 4 mg Naris, Left Once for, # 2 each, 0 Refills, Maintenance, 05/17/20 15:17:00 EDT Start Date: 05/17/20 Status: Orderedprazosin 1 mg oral capsule 1 mg, 1, capsule, By Mouth, Daily at bedtime, For PTSD, # 30 capsule, Refills 2, Tot. Refills 2, Maintenance, 04/01/19 14:49:19 EDT, Route to Pharmacy Electronically, [id number], [facility]/pharmacy #[id number] Start Date: 04/01/19 Stop Date: 06/30/19 Status: OrderedSuboxone 8 mg-2 mg sublingual film 2 films, Sublingual, Daily, dissolve under the tongue TIM [id number], # 8 film, 0 Refills, Maintenance, 05/17/20 15:17:00 EDT Start Date: 05/17/20 Status: OrderedSymbicort 160mcg/4.5mcg Inhaler 2, puffs, Inhalation, 2 times a day, # 1 each, Refills 11, Tot. Refills 11, Maintenance, 03/14/19 19:35:32 EDT, Inhaler, Route to Pharmacy Electronically, [id number], [facility]/pharmacy #[id number] Start Date: 03/14/19 Stop [...] 03/14/19 19:37:33 EDT, Route to Pharmacy Electronically, [id number], [facility]/pharmacy #[id number] Start Date: 03/14/19 Stop Date: 05/13/19 Status: Ordered Problem List Condition Effective Dates Status Health Status Informant Anxiety(Confirmed) Active Asthma, persistent, severity to be Active determined(Confirmed) Insomnia(Confirmed) Active Polysubstance abuse(Confirmed) Active PTSD (post-traumatic stress Active disorder)(Confirmed) Vital Signs Most recent to oldest 1 2 3 [Reference Range]: Oxygen Saturation [94-100 %] 97 % 99 % 99 % (05/17/20 4:00 PM) (05/17/20 2:05 PM) (05/17/20 1:4 3 PM) Pulse Rate [55-90 bpm] 68 bpm 91 bpm 84 bpm (05/17/20 4:00 PM) *H* (05/17/20 1:43 PM) (05/17/20 2:05 PM) Blood Pressure [90-138/55-84 114/72 mm Hg 124/81 mm Hg 124 /81 mm Hg mm Hg] (05/17/20 4:00 PM) (05/17/20 2:05 PM) (05/17/20 1:4 3 PM) Respiratory Rate [16-30 18 br/min 23 br/min 22 br/mi n br/min] (05/17/20 4:00 PM) (05/17/20 2:05 PM) (05/17/20 1:4 3 PM) Temperature [96.8-100.4 DegF] 99.3 DegF 98.5 DegF 97 .9 DegF (05/17/20 8:16 AM) (05/17/20 7:56 AM) (05/17/20 3:1 6 AM) Mode of Delivery (Oxygen) Room air Room air Room a ir (05/17/20 4:00 PM) (05/17/20 2:05 PM) (05/17/20 1:4 3 PM) Blood pressure sites Arm, right Arm, right Arm, right (05/17/20 2:05 PM) (05/17/20 1:43 PM) (05/17/20 12: 19 PM) Temperature Route Oral Oral Oral (05/17/20 8:16 AM) (05/17/20 7:56 AM) (05/17/20 3:1 6 AM) Social History Social History Type Response Smoking Status Never (less than 100 in life time) entered on: 02/09/19 Sex
[2022-08-01 18:11] VITALS: PULSE 108; RESP 24; O2SAT 94
[2022-08-01] MEDS: Albuterol/Iprat 2.5/0.5MG 3 ML AMPUL.NEB INHALE ×2 (18:11→20:27)
--- NOTE | 2022-08-01 18:17 | ED_ITS ---
HPI - SOB/Dyspnea General Chief Complaint: Dyspnea Stated Complaint: Difficulty Breathing/ Ashtma/ Pneumonia? Time Seen by Provider: 08/01/22 17:54 History of Present Illness HPI Narrative: Patient is a 26-year-old female with a long history of asthma. Been in the hospital many times. Had BiPAP prior. Presented today with having increasing shortness of breath. Patient is no longer smoking. He is vaccinated for COVID. Complaining of increasing shortness of breath over the last 24-48 hours. Positive coughing. Positive generalized malaise. [place] extremis presented to the ED. Related Data Home Medications Medication Instructions Recorded Confirmed methadone 10 mg/mL oral concentrate 60 mg PO DAILY 11/30/21 04/03/22 clonazepam 0.5 mg tablet 0.5 mg PO DAILY 05/23/22 nebulizers 05/23/22 Previous Rx's Medication Instructions Recorded doxepin 10 mg capsule 10 mg PO BEDTIME 30 days #30 caps 05/08/21 prazosin 2 mg capsule 2 mg PO BEDTIME 30 days #30 caps 09/18/21 gabapentin 600 mg tablet 600 mg PO TID 30 days #90 tabs 11/19/21 albuterol sulfate 2.5 mg/3 mL 2.5 mg (3 mL) inhalation Q4H PRN 12/10/21 (0.083 %) solution for nebulization shortness of breath or wheezing #180 mL albuterol sulfate 90 mcg/actuation 2 puff inhalation Q4-6H PRN 02/08/22 aerosol inhaler shortness of breath or wheezing #8.5 grams fluticasone propionate 115 2 puff inhalation BID #12 grams 02/08/22 mcg-salmeterol 21 mcg/actuation HFA inhaler (Advair HFA) albuterol sulfate 90 mcg/actuation 2 puff inhalation QID PRN Dyspnea 02/09/22 aerosol inhaler (ProAir HFA) 30 days #8.5 grams lorazepam 1 mg tablet (Ativan) 1 mg PO DAILY PRN anxiety #2 tabs 04/07/22 budesonide 0.5 mg/2 mL suspension 0.5 mg (2 mL) inhalation BID 30 05/23/22 for nebulization days #120 mL tiotropium bromide 2.5 2 puff inhalation DAILY 90 days #3 05/23/22 mcg/actuation mist for inhalation ea (Spiriva Respimat) Brovana 15 mcg/2 mL solution for 2 ml inhalation Q12H 30 days #120 05/24/22 nebulization (arformoterol) mL omeprazole 40 mg capsule,delayed 40 mg PO DAILY 90 days #90 caps 06/07/22 release Allergies Allergy/AdvReac Type Severity Reaction Status Date / Time latex [LATEX] Allergy Intermediate RASH Verified 06/21/22 21:10 adhesive tape [ADHESIVE TAPE] AdvReac Intermediate RASH Verified 06/21/22 21:10 Review of Systems Review of Systems: Positive shortness of breath. Unable to give detailed review system 2nd to patient's condition Yes Unobtainable due to mental condition PMFSH Past Medical History Attestation statement: The following information was validated with the patient. Medical History Anxiety Asthma Asthma Asthma Bipolar disorder COVID-19 Crohn's disease Depression GERD (gastroesophageal reflux disease) Opioid use disorder Pneumonia due to COVID-19 virus Pneumonitis PTSD (post-traumatic stress disorder) Family History Family History Father Colon cancer Mother No problems noted. Brother Autism Sister Bipolar disorder Maternal Aunt Breast cancer Social History Social History Household Members: Significant Other [facility] Do you presently have visiting nurse or other home services: No Alcohol intake: unknown Patient Tobacco Use Status: Former Tobacco user Cigarette Packs Per Day: 0.33 Cigarettes Per Day: 6.6 Years Smoked: 9 e-Cigarette/Vaping Use: Former Use Second Hand Smoke Exposure: Yes Substance Use Type: Heroin Advance Directives: Yes Advance Directives on File: Yes Advance Directives Date on File: 05/07/21 service: No Current occupational status: unemployed Cognitive needs: No Hearing needs: No Vision needs: No Physical Exam Vital Signs: Vital Signs: Last Vital Signs Temp 98.1 F 08/01/22 17:49 Pulse 112 H 08/01/22 18:19 Resp 21 H 08/01/22 18:19 BP 103/71 08/01/22 17:49 Pulse Ox 96 08/01/22 17:49 O2 Del Method 08/01/22 17:49 BMI result Body Mass Index 28.6 Appearance: Alert. Oriented X3. Positive respiratory distress Eyes: Pupils equal, round and reactive to light. ENT: Pharynx normal. Neck: Normal inspection. Neck supple. No lymph nodes noted. No crepitus CVS: Normal heart rate and rhythm. Pulses normal. Normal S1 and S2 Respiratory: Increased work of breathing, wheezing, diminished bilaterally Abdomen: Soft and nontender. No rigidity. No distention. good BS x4 Skin: Skin warm and dry. Normal skin color. Normal skin turgor. Extremities: No lower extremity edema. Neurovascular intact to all extremities. No Lacerations. No Rash Neuro: Oriented X 3. No motor deficit. No sensory deficit. Moving all extermities. No slurred speech Medications Administered Discontinued Medications Generic Name Dose Route Start Last Admin Trade Name Freq PRN Reason Stop Dose Admin Albuterol Sulfate 7.5 mg/ 10 mg 08/01/22 18:11 08/01/22 18:19 Albuterol Sulfate 2.5 mg INHALE 08/01/22 18:12 10 mg ONCE ONE Administration Albuterol/Ipratropium 3 ml 08/01/22 17:53 08/01/22 18:11 Albuterol/Iprat 2.5/0.5mg 3 Ml Ampul.Neb INHALE 08/01/22 17:54 3 ml ONCE ONE Administration Magnesium Sulfate 2 gm in 50 mls @ 50 mls/hr 08/01/22 18:14 08/01/22 19:26 Magnesium Sulfate/H2o IV 08/01/22 19:13 Infused ONCE ONE Infusion Methylprednisolone Sodium Succinate 125 mg 08/01/22 18:14 08/01/22 18:24 Methylprednisolone Sod Succ 125 Mg/2 Ml Vial IVPUSH 08/01/22 18:15 125 mg ONCE ONE Administration Medical Decision Making Medical Decision Making MDM Narrative: Extreme shortness of breath. Patient tripoding. Given steroid given continuous neb monitor. Symptom improving. Now is wheezing heavily with better movement of air. Will require admission. Patient's COVID RSV flu were negative. Steroids given. Will give additional neb treatment. Magnesium given. Patient's case will be discussed with the hospitalist service for admission. Differential Diagnoses: Differential diagnosis Consideration of admission/observation: Consideration of Admission/Observation Discussion of management with other physician/healthcare provider/other source (e.g., hospitalist, physician practice consultant, behavioral health): Discussion w/other physic mari/healthcare provider My interpretation is Lab Attestation: I reviewed the patient's lab results. Independent historian (e.g., spouse, EMS, friend): Independent historian (e.g., spouse, EMS, friend) Prescription medication was considered but ultimately not given after discussion with patient/family. (e.g., pain medication, antiviral, antibiotic): Prescriptions considered but not given Chronic conditions affecting care (e.g., diabetes, HTN): Chronic conditions affecting care (e.g., diabetes, HTN) Care significantly affected by Social Determinants of Health (e.g., housing and economic circumstances, unemployment): Care affected by Social Determinants of Health Critical Care Time Critical Care Time Critical Care Time: Yes Total Critical Care Time: 40 Attestation: I have personally provided 40 minutes of critical care time exclusive of time spent on separately billable procedures. Time includes review of lab data, ra diology results, discussion with consultants, and monitoring for potential decompensation. Interventions were performed as documented above Discharge Plan Discharge Clinical Impression: Asthma Prescriptions: No Action doxepin 10 mg capsule 10 mg PO BEDTIME 30 Days Qty: 30 0RF prazosin 2 mg capsule 2 mg PO BEDTIME 30 Days Qty: 30 1RF gabapentin 600 mg tablet 600 mg PO TID 30 Days Qty: 90 0RF albuterol sulfate 2.5 mg /3 mL (0.083 %) solution for nebulization 2.5 mg inhalation Q4H PRN (Reason: shortness of breath or wheezing) Qty: 180 2RF albuterol sulfate [ProAir HFA] 90 mcg/actuation HFA aerosol inhaler 2 puff INHALATION QID PRN (Reason: Dyspnea) 30 Days Qty: 8.5 1RF arformoterol [Brovana] 15 mcg/2 mL solution for nebulization 2 ml inhalation Q12H 30 Days Qty: 120 11RF omeprazole 40 mg capsule,delayed release(DR/EC) 40 mg PO DAILY 90 Days Qty: 90 0RF lorazepam [Ativan] 1 mg tablet 1 mg PO DAILY PRN (Reason: anxiety) Qty: 2 0RF methadone 10 mg/mL Concentrate 60 mg PO DAILY albuterol sulfate 90 mcg/actuation HFA aerosol inhaler 2 puff inhalation Q4-6H PRN (Reason: shortness of breath or wheezing) Qty: 8.5 0RF Advair HFA 115-21 mcg/actuation HFA aerosol inhaler 2 puff inhalation BID Qty: 12 0RF clonazepam 0.5 mg tablet 0.5 mg PO DAILY (DME) nebulizers Misc See Rx Instructions .ROUTE Rx Instructions: As directed budesonide 0.5 mg/2 mL suspension for nebulization 0.5 mg inhalation BID 30 Days Qty: 120 11RF Spiriva Respimat 2.5 mcg/actuation mist 2 puff inhalation DAILY 90 Days Qty: 3 3RF
[2022-08-01 18:19] VITALS: PULSE 112; RESP 21
[2022-08-01] MEDS: Albuterol Sulfate 7.5 MG, Albuterol Sulfate (0.083%) 2.5 MG 10 MG INHALE (18:19)
[2022-08-01] MEDS: Magnesium Sulfate/H2O 2 GM/50 ML PIGGYBACK IV (18:24)
[2022-08-01] MEDS: methylPREDNISolone Sod Succ 125 MG/2 ML VIAL IVPUSH (18:24)
[2022-08-01 18:30] LABS: Prothrombin Time 11.4 SEC (10.0-13.1)
[2022-08-01 18:35] LABS: Lactic Acid 1.9 mmol/L (0.5-2.0)
--- NOTE | 2022-08-01 19:00 | PC.NURSE ---
Pt resting on stretcher with mom and bedside. Pt is tearful, stating that the magnesium drip is burning. Mag drip turned off, Iv flushed. Still patent, not infiltrated. MD aware
[2022-08-01 19:06] LABS: Influenza A PCR NEGATIVE (Negative); Influenza B PCR NEGATIVE (Negative); Resp Syncy Virus RNA Qual PCR NEGATIVE (Negative); SARS COV2 PCR INHOUSE NEGATIVE (Negative)
[2022-08-01] MEDS: Albuterol Sulfate 2.5 MG, Albuterol Sulfate (0.083%) 2.5 MG 5 MG INHALE (20:24)
[2022-08-01 20:25] VITALS: PULSE 95; RESP 20; O2SAT 96
--- NOTE | 2022-08-01 20:33 | PM.IMHP ---
History of Present Illness Date of Service: 08/01/22 Chief Complaint: Dyspnea This is a 26-year-old female with pertinent history of asthma, mood disorder who presents to the emergency department for evaluation of dyspnea. Patient states it started Friday has been ongoing and progressive. Initially started with upper respiratory like symptoms. Also has been having chills and productive cough with clear mucus production. Patient states her shortness of breath is worse with exertion and has been progressive over the last 3 days. Also has associated wheezing. Patient tried her home inhalers and nebulization at home without relief. She is vaccinated for COVID. Denies chewing or smoking tobacco. She denies chest discomfort, palpitations, abdominal pain, changes in urinary or bowel habits. Review of Systems Constitutional: Constitutional: Reports fatigue, Reports lethargy and Reports malaise Cardiovascular: Cardiovascular: Reports dyspnea on exertion Respiratory: Respiratory: Reports dyspnea on exertion and Reports wheezing Endocrine: Endocrine: Reports fatigue Allergic/Immunologic: Allergic/Immunologic: Reports wheezing [facility] Medical History Anxiety Asthma Asthma Asthma Bipolar disorder COVID-19 Crohn's disease Depression GERD (gastroesophageal reflux disease) Opioid use disorder Pneumonia due to COVID-19 virus Pneumonitis PTSD (post-traumatic stress disorder) Family History Father Colon cancer Mother No problems noted. Brother Autism Sister Bipolar disorder Maternal Aunt Breast cancer Social History Household Members: Significant Other [facility]: [facility] Do you presently have visiting nurse or other home services: No Alcohol intake: unknown Patient Tobacco Use Status: Former Tobacco user Cigarette Packs Per Day: 0.33 Cigarettes Per Day: 6.6 Years Smoked: 9 e-Cigarette/Vaping Use: Former Use Second Hand Smoke Exposure: Yes Substance Use Type: Heroin Advance Directives: Yes Advance Directives on File: Yes Advance Directives Date on File: 05/07/21 service: No Current occupational status: unemployed Cognitive needs: No Hearing needs: No Vision needs: No Meds Allergies Allergy/AdvReac Type Severity Reaction Status Date / Time latex [LATEX] Allergy Intermediate RASH Verified 06/21/22 21:10 adhesive tape [ADHESIVE TAPE] AdvReac Intermediate RASH Verified 06/21/22 21:10 Active Medications: Current Medications Acetaminophen (Acetaminophen 325 Mg Tablet) 650 mg PO Q6H PRN PRN Reason: Pain, Mild (Pain Scale 1-3) Albuterol/Ipratropium (Albuterol/Iprat 2.5/0.5mg 3 Ml Ampul.Neb) 3 ml INHALE RQ4H WHILE AWAKE [facility] Last Admin: 08/01/22 20:27 Dose: 3 ml Albuterol/Ipratropium (Albuterol/Iprat 2.5/0.5mg 3 Ml Ampul.Neb) 3 ml INHALE RQ4H PRN PRN Reason: wheezing Benzonatate (Benzonatate 100 Mg Capsule) 200 mg PO TID PRN PRN Reason: cough Melatonin (Melatonin 3 Mg Tablet) 6 mg PO BEDTIME PRN PRN Reason: Insomnia Methylprednisolone Sodium Succinate (Methylprednisolone Sod Succ 40 Mg/Ml Vial) 40 mg IVPUSH Q12H [facility] Ondansetron HCl (Ondansetron Hcl 4 Mg/2 Ml Vial) 4 mg IVPUSH Q8H PRN PRN Reason: Nausea and Vomiting Pharmacy Consult (Consult Rx Perform Med Rec) 1 each MISCELLANE ONCE PRN PRN Reason: Consult order Sodium Chloride (0.9 % Sodium Chloride Flush 3 Ml Syringe) 3 ml IVFLUSH QSHIFT [facility] Home Medications Medication Instructions Recorded Confirmed Last Taken Type methadone 10 mg/mL oral concentrate 120 mg PO DAILY 11/30/21 08/01/22 Unknown History clonazepam 0.5 mg tablet 0.5 mg PO DAILY PRN Anxiety 05/23/22 08/01/22 Unknown History nebulizers 05/23/22 Unknown History albuterol sulfate 2.5 mg/3 mL 2.5 mg inhalation TID 08/01/22 08/01/22 Unknown History (0.083 %) solution for nebulization clonidine HCl 0.1 mg tablet 1 tab PO BID PRN Anxiety 08/01/22 08/01/22 Unknown History clonidine HCl 0.2 mg tablet 1 tab PO BEDTIME 08/01/22 08/01/22 Unknown History gabapentin 800 mg tablet 1 tab PO TID 08/01/22 08/01/22 Unknown History omeprazole 40 mg capsule,delayed 40 mg PO DAILY PRN GI UPSET 08/01/22 08/01/22 Unknown History release Physical Exam Vital Signs and Narrative: Vital Signs: Last Vital Signs Temp 98.1 F 08/01/22 17:49 Pulse 95 08/01/22 20:25 Resp 20 08/01/22 20:25 BP 103/71 08/01/22 17:49 Pulse Ox 96 08/01/22 17:49 O2 Del Method 08/01/22 17:49 BMI result Body Mass Index 28.6 Young female lying in bed in no distress Neck supple, no JVD Regular rate and rhythm, S1-S2 heard Bilateral expiratory wheezing Abdomen soft nontender, no guarding, no rigidity Patient is awake, alert and oriented to self, place, time and person ; no focal motor deficit Psych: Normal mood No pedal edema Results Labs CBC and Chem 7: 08/01/22 20:30 08/01/22 20:30 Labs: Laboratory Results - last 24 hr 08/01/22 08/01/22 08/01/22 18:14 18:14 18:22 PT 11.4 INR 1.0 Lactic Acid 1.9 Influenza Type A (PCR) NEGATIVE Influenza Type B (PCR) NEGATIVE RSV RNA Qual (PCR) NEGATIVE SARS-CoV-2 RNA (RT-PCR) NEGATIVE Imaging Radiologist's Impressions: Impressions Chest X-Ray 08/01/22 18:33 IMPRESSION: Unremarkable examination. Assessment and Plan (1) Asthma: Status: Acute (2) Mood disorder: Status: Acute Plan This is a 26-year-old female with pertinent history of asthma, mood disorder who presents to the emergency department for evaluation of dyspnea. #. Acute dyspnea due to asthma exacerbation the setting of viral bronchitis: Admit patient with scheduled and p.r.n. DuoNebs. Continue systemic steroids. #. Mood disorder: Continue home medications #. Opioid use disorder: On methadone #. Hyperglycemia, likely due to steroid use: Obtaining A1C. Initiated Accu-Cheks with sliding scale insulin. Med rec pending DVT prophylaxis: None. Patient is ambulatory Full code Regular diet Quality Stroke Does the patient have a stroke diagnosis?: No VTE Prior VTE?: No VTE Risk Level:: Medical - low VTE Device Contraindication: Treatment Not Indicated VTE Drug Contraindication: Treatment Not Indicated
[2022-08-01 20:37] LABS: Basophils Percent Auto 0.3 % (0-2); Eosinophils Absolute Auto 0.2 X10*3/uL (0.0-0.4); Eosinophils Percent Auto 2.2 % (0-4); Hematocrit 33.2 % (37.0-47.0); Hemoglobin 11.1 g/dl (12.0-16.0); Imm Gran Abs Auto 0.03 X10*3/uL (0.00-0.03); Imm Gran Pct Auto 0.3 % (0.0-0.4); Lymphocytes Percent Auto 9.7 % (20-40); Mean Corpuscular HGB Conc 33.4 g/dl (31.0-35.0); Mean Corpuscular Hemoglobin 29.2 pg (27.0-33.0); Mean Corpuscular Volume 87.4 fL (80.0-98.0); Mean Platelet Volume 9.8 fL (9.4-12.3); Monocytes Absolute Auto 0.2 X10*3/uL (0.1-1.2); Neutrophils Absolute Auto 8.7 x10*3/uL (2.0-8.3); Neutrophils Percent Auto 85.5 % (45-73); Platelet Count 213 X10*3/uL (160-400); Red Cell Distribution Width 12.4 % (11.0-16.0); White Blood Count 10.2 X10*3/uL (4.8-10.8)
[2022-08-01 20:42] LABS: MANUAL DIFF FLAG NO
[2022-08-01 21:20] LABS: Alanine Aminotransferase 12 U/L (0-31); Albumin Level 3.8 g/dL (3.5-5.0); Alkaline Phosphatase 72 U/L (39-117); Anion Gap 15 (12-20); Aspartate Amino Transferase 18 U/L (5-31); Bilirubin Direct < 0.2 mg/dL (0.0-0.5); Bilirubin Total < 0.2 mg/dL (0.0-1.0); Blood Urea Nitrogen 14 mg/dL (9-16); Calcium 8.8 mg/dL (8.4-10.2); Carbon Dioxide 16 mmol/L (22-29); Chloride 109 mmol/L (96-108); Creatinine Clr Calc Pharmacy 110.6; Estimated Glomerular Filt Rate > 60; Glucose Random 183 mg/dL (60-115); Potassium 4.4 mmol/L (3.3-5.1); Sodium 136 mmol/L (135-145); Total Protein 6.5 g/dL (6.5-8.0)
[2022-08-01 21:42] VITALS: BP 104/62; PULSE 108; RESP 20; TEMP 36.6; O2SAT 95
--- NOTE | 2022-08-01 21:42 | PHA.MEDREC ---
Pharmacy Consult ? Medication Reconciliation Pharmacy has completed the medication reconciliation. Patient confirmed all medications. Reports she is on Klonipin BID and once PRN. This has not been filled since September per the PDMP for clonazepam 2 mg tablets. Patient is adamant that she is taking Klonipin when also ask about Ativan. Patient reports she is on methadone, brought in a last dose letter in a sealed envelope from [facility] for 120 mg last given on 07/31/22 @ 0958. Letter was placed in patient's chart and copy is in pharmacy, RN should call to confirm letter in the AM. Nereida Raines, FernandoD
[2022-08-01] MEDS: Gabapentin 400 MG CAPSULE 800 MG PO (21:58)
[2022-08-01] MEDS: clonazePAM 1 MG TABLET 2 MG PO (21:58)
[2022-08-01] MEDS: cloNIDine HCL 0.2 MG TABLET PO (21:58)
[2022-08-01] MEDS: methADONE HCl 20 MG/2 ML ORAL.CONC 120 MG PO (22:50)
--- NOTE | 2022-08-01 23:31 | PC.NURSE ---
Pt has been resting comfortably for the past 2 hours. Pt has been provided with, eye mask and ear plugs for sleeping. Pt has drank a few juices and states she is feeling much better that when she first came in. Denies SOB, pain and other complaints at this time
--- NOTE | 2022-08-02 02:58 | PC.NURSE ---
pt sleeping, respirations are even and unlabored, pt in no apparent distress
[2022-08-02 03:52] VITALS: BP 124/65; PULSE 102; O2SAT 96
--- NOTE | 2022-08-02 03:53 | PC.NURSE ---
RT called for breathing treatment r/t pt is reporting sob, audible wheezing, and use of accessory muscles noted
--- NOTE | 2022-08-02 04:03 | PC.NURSE ---
pt ask for something to eat she stated she was hungry ,,, she was given 2 PBJ sandwiches and a big cup of ice
[2022-08-02] MEDS: Albuterol/Iprat 2.5/0.5MG 3 ML AMPUL.NEB INHALE (04:18)
[2022-08-02 04:19] VITALS: PULSE 100; RESP 20; O2SAT 96
[2022-08-02] MEDS: methylPREDNISolone Sod Succ 40 MG/ML VIAL IVPUSH (04:28)
--- NOTE | 2022-08-02 06:09 | PC.NURSE ---
pt fell asleep and spilled her water on herself i help change her bed and give her a new sally
[2022-08-02 06:59] LABS: MANUAL DIFF FLAG NO
[2022-08-02 07:02] LABS: Hematocrit 34.9 % (37.0-47.0); Hemoglobin 11.7 g/dl (12.0-16.0); Imm Gran Abs Auto 0.03 X10*3/uL (0.00-0.03); Imm Gran Pct Auto 0.4 % (0.0-0.4); Lymphocytes Absolute Auto 0.9 X10*3/uL (1.2-4.9); Mean Corpuscular HGB Conc 33.5 g/dl (31.0-35.0); Mean Corpuscular Hemoglobin 28.5 pg (27.0-33.0); Mean Corpuscular Volume 85.1 fL (80.0-98.0); Mean Platelet Volume 9.9 fL (9.4-12.3); Monocytes Absolute Auto 0.2 X10*3/uL (0.1-1.2); Monocytes Percent Auto 2.8 % (2-11); Neutrophils Absolute Auto 7.3 x10*3/uL (2.0-8.3); Neutrophils Percent Auto 86.8 % (45-73); Platelet Count 243 X10*3/uL (160-400); Red Cell Distribution Width 12.2 % (11.0-16.0); White Blood Count 8.5 X10*3/uL (4.8-10.8)
[2022-08-02 07:03] VITALS: BP 114/75; PULSE 83; RESP 16; TEMP 36.6; O2SAT 93
[2022-08-02 07:08] LABS: Glucose, Whole Blood 133 mg/dL (60-115)
[2022-08-02 07:47] LABS: Anion Gap 12 (12-20); Blood Urea Nitrogen 13 mg/dL (9-16); Calcium 9.6 mg/dL (8.4-10.2); Carbon Dioxide 24 mmol/L (22-29); Chloride 105 mmol/L (96-108); Creatinine Clr Calc Pharmacy 135.7; Estimated Glomerular Filt Rate > 60; Glucose Random 123 mg/dL (60-115); Potassium 4.6 mmol/L (3.3-5.1); Sodium 136 mmol/L (135-145)
[2022-08-02 07:55] LABS: Estimated Average Glucose 105 mg/dL; Hemoglobin A1c % 5.3 %
--- NOTE | 2022-08-02 08:20 | HE.PHANOTE ---
Methadone: pt had last dose verification form from 07/31/22 @0958 for 120mg
[2022-08-02] MEDS: Albuterol Sulfate (0.083%) 2.5 MG/3 ML VIAL.NEB INHALE (09:13)
[2022-08-02 09:16] VITALS: PULSE 107; RESP 18; O2SAT 97
[2022-08-02] MEDS: Gabapentin 400 MG CAPSULE 800 MG PO (09:20)
[2022-08-02] MEDS: methADONE HCl 20 MG/2 ML ORAL.CONC 120 MG PO (09:21)
[2022-08-02] MEDS: 0.9 % Sodium Chloride Flush 3 ML SYRINGE IVFLUSH (09:22)
--- NOTE | 2022-08-02 09:23 | P.PNIM_ITS ---
Subjective Subjective Date of Service: 08/02/22 <LISA Ulloa - Last Filed: 08/02/22 09:57> 08/02/22 <Bayron Dash MD - Last Filed: 08/02/22 13:41> Interval History: F/U for pt with acute dysnpea secondary to asthma exacerbation. Pt seen and evaluated in her room, looking uncomfortable and audibly wheezing. Patient reports continued dyspnea and SOB which has not improved much since admission. Occasional productive cough. Reports nausea and some vomiting, which she says sometimes accompanies these exacerbations. States that promethazine works best to control her nausea; Zofran no longer works. Mild chronic abdominal pain; pt has a history of Crohn's. <LISA Ulloa Last Filed: 08/02/22 09:57> Review of Systems SOB Wheezing Occasional productive cough N/V Mild abdominal pain No chest pain/pressure <LISA Ulloa - Last Filed: 08/02/22 09:57> Review of Systems: Yes all other systems are reviewed and are negative <LISA Ulloa Last Filed: 08/02/22 09:57> Physical Exam Vital Signs: Vital Signs: Last Vital Signs Temp 97.8 F 08/02/22 07:03 Pulse 107 H 08/02/22 09:16 Resp 18 08/02/22 09:16 BP 114/75 08/02/22 07:03 Pulse Ox 93 08/02/22 07:03 O2 Del Method 08/02/22 07:03 BMI result Body Mass Index 28.6 <LISA Ulloa Last Filed: 08/02/22 09:57> General: AOx3, looking uncomfortable and audibly wheezing Resp: Diffuse expiratory wheezing bilaterally; wet cough CVS: S1, S2, RRR GI: +BS, mild diffuse tenderness, no distention Skin: No rash Neuro: Motor grossly intact Psych: Appropriate affect <LISA Ulloa Last Filed: 08/02/22 09:57> Objective Data Active Medications Acetaminophen (Acetaminophen 325 Mg Tablet) 650 mg PO Q6H PRN PRN Reason: Pain, Mild (Pain Scale 1-3) Albuterol Sulfate (Albuterol Sulfate (0.083%) 2.5 Mg/3 Ml Vial.Neb) 2.5 mg INHALE TID [facility] Last Admin: 08/02/22 09:13 Dose: 2.5 mg Documented By: NONI Albuterol Sulfate (Albuterol Sulfate 90 Mcg 8 Gm Inhaler) 2 puff INHALE QID PRN PRN Reason: Dyspnea Albuterol/Ipratropium (Albuterol/Iprat 2.5/0.5mg 3 Ml Ampul.Neb) 3 ml INHALE RQ4H WHILE AWAKE [facility] Last Admin: 08/02/22 09:13 Dose: Not Given Documented By: NONI Non-Admin Reason: See Note Albuterol/Ipratropium (Albuterol/Iprat 2.5/0.5mg 3 Ml Ampul.Neb) 3 ml INHALE RQ4H PRN PRN Reason: wheezing Last Admin: 08/02/22 04:18 Dose: 3 ml Documented By: CHELSIE Benzonatate (Benzonatate 100 Mg Capsule) 200 mg PO TID PRN PRN Reason: cough Clonazepam (Clonazepam 1 Mg Tablet) 2 mg PO BID PRN PRN Reason: Anxiety Clonidine HCl (Clonidine Hcl 0.1 Mg Tablet) 0.1 mg PO BID PRN; Protocol PRN Reason: Anxiety Clonidine HCl (Clonidine Hcl 0.2 Mg Tablet) 0.2 mg PO BEDTIME [facility]; Protocol Dextrose (Dextrose 50 % 25 Gm/50 Ml Syringe) 25 gm IVPUSH Q15M PRN; Protocol PRN Reason: per Hypoglycemia Standing Ord. Fluticasone/Vilanterol (Fluticasone/Vilanterol 100/25 Blst.W.Dev) 1 puff INHALE RDAILY [facility] Gabapentin (Gabapentin 400 Mg Capsule) 800 mg PO TID [facility] Glucose (Glucose Gel 15 Gm Gel..Gram.) 15 gm PO Q15M PRN; Protocol PRN Reason: per Hypoglycemia Standing Ord. Insulin Human Lispro (Insulin Lispro 100 Unit/Ml 3 Ml Vial) 0 unit SUBCUT QIDACHS [facility]; Protocol Last Admin: 08/02/22 07:24 Dose: Not Given Documented By: MARTIN Non-Admin Reason: No Insulin Coverage Melatonin (Melatonin 3 Mg Tablet) 6 mg PO BEDTIME PRN PRN Reason: Insomnia Methadone HCl (Methadone Hcl 20 Mg/2 Ml Oral.Conc) 120 mg PO DAILY [facility] Methylprednisolone Sodium Succinate (Methylprednisolone Sod Succ 40 Mg/Ml Vial) 40 mg IVPUSH Q12H [facility] Last Admin: 08/02/22 04:28 Dose: 40 mg Documented By: CHANTAL Omeprazole (Omeprazole 40 Mg Capsule.Dr) 40 mg PO DAILY PRN PRN Reason: GI UPSET Ondansetron HCl (Ondansetron Hcl 4 Mg/2 Ml Vial) 4 mg IVPUSH Q8H PRN PRN Reason: Nausea and Vomiting Pharmacy Consult (Consult Rx Perform Med Rec) 1 each MISCELLANE ONCE PRN PRN Reason: Consult order Prazosin HCl (Prazosin Hcl 1 Mg Capsule) 2 mg PO BEDTIME [facility]; Protocol Sodium Chloride (0.9 % Sodium Chloride Flush 3 Ml Syringe) 3 ml IVFLUSH QSHIFT [facility] Last Admin: 08/02/22 00:59 Dose: Not Given Documented By: LUCERO Non-Admin Reason: Patient Asleep <LISA Ulloa - Last Filed: 08/02/22 09:57> Labs CBC & Chem 7: : 08/02/22 06:27 08/02/22 06:27 <LISA Ulloa - Last Filed: 08/02/22 09:57> Labs: Laboratory Results - last 24 hr 08/01/22 08/01/22 08/01/22 18:14 18:14 18:22 MCV MCH MCHC RDW Plt Count MPV Immature Gran % (Auto) Neut % (Auto) Lymph % (Auto) [place] % (Auto) Eos % (Auto) Baso % (Auto) Lymph # (Auto) [place] # (Auto) Eos # (Auto) Baso # (Auto) Abs Immat Gran (auto) Absolute Neuts (auto) Absolute Nucleated RBC Nucleated RBC % (auto) PT 11.4 INR 1.0 Anion Gap Estim Creat Clear Calc Estimated GFR POC Glucose Random Glucose Estimat Average Glucose Hemoglobin A1c % Lactic Acid 1.9 Calcium Total Bilirubin Direct Bilirubin AST ALT Alkaline Phosphatase Total Protein Albumin Influenza Type A (PCR) NEGATIVE Influenza Type B (PCR) NEGATIVE RSV RNA Qual (PCR) NEGATIVE SARS-CoV-2 RNA (RT-PCR) NEGATIVE 08/01/22 08/01/22 08/02/22 20:30 20:30 06:27 MCV 87.4 85.1 MCH 29.2 28.5 MCHC 33.4 33.5 RDW 12.4 12.2 Plt Count 213 243 MPV 9.8 9.9 Immature Gran % (Auto) 0.3 0.4 Neut % (Auto) 85.5 H 86.8 H Lymph % (Auto) 9.7 L 10.0 L [place] % (Auto) 2.0 2.8 Eos % (Auto) 2.2 0.0 Baso % (Auto) 0.3 0.0 Lymph # (Auto) 1.0 L 0.9 L [place] # (Auto) 0.2 0.2 Eos # (Auto) 0.2 0.0 Baso # (Auto) 0.0 0.0 Abs Immat Gran (auto) 0.03 0.03 Absolute Neuts (auto) 8.7 H 7.3 Absolute Nucleated RBC 0.000 0.000 Nucleated RBC % (auto) 0.0 0.0 PT INR Anion Gap 15 Estim Creat Clear Calc 110.6 Estimated GFR > 60 POC Glucose Random Glucose 183 H Estimat Average Glucose Hemoglobin A1c % Lactic Acid Calcium 8.8 Total Bilirubin < 0.2 Direct Bilirubin < 0.2 AST 18 ALT 12 Alkaline Phosphatase 72 Total Protein 6.5 Albumin 3.8 Influenza Type A (PCR) Influenza Type B (PCR) RSV RNA Qual (PCR) SARS-CoV-2 RNA (RT-PCR) 08/02/22 08/02/22 08/02/22 06:27 06:27 07:00 MCV MCH MCHC RDW Plt Count MPV Immature Gran % (Auto) Neut % (Auto) Lymph % (Auto) [place] % (Auto) Eos % (Auto) Baso % (Auto) Lymph # (Auto) [place] # (Auto) Eos # (Auto) Baso # (Auto) Abs Immat Gran (auto) Absolute Neuts (auto) Absolute Nucleated RBC Nucleated RBC % (auto) PT INR Anion Gap 12 Estim Creat Clear Calc 135.7 Estimated GFR > 60 POC Glucose 133 H Random Glucose 123 H Estimat Average Glucose 105 Hemoglobin A1c % 5.3 Lactic Acid Calcium 9.6 D Total Bilirubin Direct Bilirubin AST ALT Alkaline Phosphatase Total Protein Albumin Influenza Type A (PCR) Influenza Type B (PCR) RSV RNA Qual (PCR) SARS-CoV-2 RNA (RT-PCR) <LISA Ulloa - Last Filed: 08/02/22 09:57> Assessment and Plan (1) Asthma exacerbation: Status: Acute <LISA Ulloa - Last Filed: 08/02/22 09:57> (2) Opioid use disorder: Status: Acute <LISA Ulloa - Last Filed: 08/02/22 09:57> (3) SOB (shortness of breath): Status: Acute <LISA Ulloa - Last Filed: 08/02/22 09:57> Assessment and Plan: Pt is a 26-year-old female with PMH pertinent for history of asthma, mood disorder, Crohn's, opioid use disorder, who presented to the emergency department for evaluation of dyspnea. Pt was admitted for acute asthma exacerbation. # Acute asthma exacerbation -- scheduled and p.r.n. DuoNebs -- Solu-medrol 40mg IV q12 # nausea, vomiting -- Zopfran prn -- consider prn promethazine if intractable #?Mood disorder -- continue home meds # Opioid use disorder -- on methadone #?Hyperglycemia, likely due to steroid use -- A1C 5.3 -- Accu-Checks with sliding scale insulin. # history of Crohn's -- not in an acute flare DVT prophylaxis:? None.? Patient is ambulatory Full code Regular diet <LISA Ulloa - Last Filed: 08/02/22 09:57> Quality Stroke Does the patient have a stroke diagnosis?: No <LISA Ulloa - Last Filed: 08/02/22 09:57> VTE Prior VTE?: No <LISA Ulloa - Last Filed: 08/02/22 09:57> VTE Risk Level:: Medical - low <LISA Ulloa - Last Filed: 08/02/22 09:57> VTE Device Contraindication: Treatment Not Indicated <LISA Ulloa Last Filed: 08/02/22 09:57> VTE Drug Contraindication: Treatment Not Indicated <LISA Ulloa - Last Filed: 08/02/22 09:57>
--- NOTE | 2022-08-02 09:41 | MHC.CM.PN ---
Patient lives in an apartment with her Boyfriend and per her Primary Contact/Grandmother/Tamanna @ [phone], Patient receives her Methadone from a Clinic in [place] and explains that she is on a patch system with monthly shots. Home/resume Methadone is the tentative goal for dc and CM has initiated and will follow for dc planning. Patient is Coral alves and her PCP is Dr. Vincent Hayes.
--- NOTE | 2022-08-02 10:04 | PC.NURSE ---
pt nauseated. she states zofran doesn't work for her. she was given promethazine at 4pm. provider aware. will hold meds until she is able to take them
--- NOTE | 2022-08-02 10:11 | MHC.CM.PN ---
Patient gets her Methadone from [facility].
--- NOTE | 2022-08-02 10:20 | PC.NURSE ---
pt anxious with increased SOB s/p updraft. This RN to bedside able to reassure pt with good effect, also placed on 2lpm via nc. Pt reporting nausea, new order for Phenergan obtained and administered as charted. AM meds pending effect from Phenergan as pt is unsure she can tolerate PO meds at tis time.
[2022-08-02] MEDS: clonazePAM 1 MG TABLET 2 MG PO (10:39)
[2022-08-02] MEDS: Fluticasone/Vilanterol 100/25 BLST.W.DEV 1 PUFF INHALE (11:00)
[2022-08-02 11:01] VITALS: PULSE 104; RESP 19; O2SAT 96
--- NOTE | 2022-08-02 14:41 | P.DS_ITS ---
DS: Providers Provider Date of Service: 08/02/22 Date of admission: 08/01/22 19:51 Date of discharge: 08/02/22 Primary care physician: Vincent Hayes [facility] DS: Diagnosis Discharge Diagnosis (1) Asthma exacerbation: Status: Acute (2) Opioid use disorder: Status: Acute (3) SOB (shortness of breath): Status: Acute DS: Summary Hospital Course Hospital Course: Presenting HPI: Chief Complaint: Dyspnea This is a 26-year-old female with pertinent history of asthma, mood disorder who presents to the emergency department for evaluation of dyspnea.? Patient states it started Friday has been ongoing and progressive.? Initially started with upper respiratory like symptoms.? Also has been having chills and productive cough with clear mucus production.? Patient states her shortness of breath is worse with exertion and has been progressive over the last 3 days.? Also has associated wheezing.? Patient tried her home inhalers and nebulization at home without relief.? She is vaccinated for COVID.? Denies chewing or smoking tobacco.? She denies chest discomfort, palpitations, abdominal pain, changes in urinary or bowel habits. Hospital Course: Patient initially presented with tachypnea, verbal wheezing, tripoding while in triage. She was started on continuous neb monitor and given systemic steroids which improved her symptoms. She is also given magnesium in 1 dose of methadone at 22:50. She was admitted to the hospital with scheduled and p.r.n. DuoNebs and schedule systemic steroids. In the morning the patient was still uncomfortable and audibly wheezing with continued shortness of breath. Occasional productive cough with nausea and some vomiting. She was given promethazine for her nausea. During the afternoon the patient told nursing staff that she wanted to leave against medical advice. She was seen and no longer had audible wheezing, but still had diffuse wheezing bilaterally upon auscultation. He was discussed with the patient the importance of staying for further treatment for her asthma exacerbation, but she still wanted to leave AMA, saying that she felt there was nothing more that we could do for her here. She understood the severity of asthma exacerbations, including by hypoxia, and understood how severe her exacerbation was last night and this morning. She has still elected to leave AMA. Patient requests a prescription for a ProAir albuterol inhaler, and a note to her methadone clinic that she has received 2 doses 1 yesterday and 1 today. She will also be sent home with a prescription for prednisone. Status at Discharge Functional status at discharge: independent ambulation Overall status at discharge: patient is not back to baseline Time Spent with Patient Time attestation: Total time spent providing and/or coordinating discharge services: Discharge coordination time: Greater than 30 minutes Quality: Safe Use of Opioids Does Pt have an Active Cancer Diagnosis on the Problem List?: No Quality: Stroke Does the patient have a stroke diagnosis?: No Physical Exam Vital Signs: Vital Signs: Last Vital Signs Temp 97.8 F 08/02/22 07:03 Pulse 104 H 08/02/22 11:01 Resp 19 08/02/22 11:01 BP 114/75 08/02/22 07:03 Pulse Ox 93 08/02/22 07:03 O2 Del Method 08/02/22 07:03 BMI result Body Mass Index 28.6 General: AOx3, no acute distress Resp: Diffuse wheezing bilaterally, worse in the lower lobes CVS: S1, S2, RRR GI: +BS, NT, no distention Skin: No rash Neuro: Motor grossly intact Psych: Appropriate affect DS: Data Data Completed and Pending Completed studies during hospitalization [Text1]: Procedures Assistance with Respiratory Ventilation, Less than 24 Consecutive Hours, Continuous Positive Airway Pressure (05/31/21) Detoxification Services for Substance Abuse Treatment (11/04/21) Labs on day of discharge: Laboratory Results - last 24 hr 08/01/22 08/01/22 08/01/22 18:14 18:14 18:22 WBC RBC Hgb Hct MCV MCH MCHC RDW Plt Count MPV Immature Gran % (Auto) Neut % (Auto) Lymph % (Auto) [place] % (Auto) Eos % (Auto) Baso % (Auto) Lymph # (Auto) [place] # (Auto) Eos # (Auto) Baso # (Auto) Abs Immat Gran (auto) Absolute Neuts (auto) Absolute Nucleated RBC Nucleated RBC % (auto) PT 11.4 INR 1.0 Sodium Potassium Chloride Carbon Dioxide Anion Gap BUN Creatinine Estim Creat Clear Calc Estimated GFR POC Glucose Random Glucose Estimat Average Glucose Hemoglobin A1c % Lactic Acid 1.9 Calcium Total Bilirubin Direct Bilirubin AST ALT Alkaline Phosphatase Total Protein Albumin Influenza Type A (PCR) NEGATIVE Influenza Type B (PCR) NEGATIVE RSV RNA Qual (PCR) NEGATIVE SARS-CoV-2 RNA (RT-PCR) NEGATIVE 08/01/22 08/01/22 08/02/22 20:30 20:30 06:27 WBC 10.2 8.5 RBC 3.80 L 4.10 L Hgb 11.1 L 11.7 L Hct 33.2 L 34.9 L MCV 87.4 85.1 MCH 29.2 28.5 MCHC 33.4 33.5 RDW 12.4 12.2 Plt Count 213 243 MPV 9.8 9.9 Immature Gran % (Auto) 0.3 0.4 Neut % (Auto) 85.5 H 86.8 H Lymph % (Auto) 9.7 L 10.0 L [place] % (Auto) 2.0 2.8 Eos % (Auto) 2.2 0.0 Baso % (Auto) 0.3 0.0 Lymph # (Auto) 1.0 L 0.9 L [place] # (Auto) 0.2 0.2 Eos # (Auto) 0.2 0.0 Baso # (Auto) 0.0 0.0 Abs Immat Gran (auto) 0.03 0.03 Absolute Neuts (auto) 8.7 H 7.3 Absolute Nucleated RBC 0.000 0.000 Nucleated RBC % (auto) 0.0 0.0 PT INR Sodium 136 Potassium 4.4 Chloride 109 H Carbon Dioxide 16 L Anion Gap 15 BUN 14 Creatinine 0.81 Estim Creat Clear Calc 110.6 Estimated GFR > 60 POC Glucose Random Glucose 183 H Estimat Average Glucose Hemoglobin A1c % Lactic Acid Calcium 8.8 Total Bilirubin < 0.2 Direct Bilirubin < 0.2 AST 18 ALT 12 Alkaline Phosphatase 72 Total Protein 6.5 Albumin 3.8 Influenza Type A (PCR) Influenza Type B (PCR) RSV RNA Qual (PCR) SARS-CoV-2 RNA (RT-PCR) 08/02/22 08/02/22 08/02/22 06:27 06:27 07:00 WBC RBC Hgb Hct MCV MCH MCHC RDW Plt Count MPV Immature Gran % (Auto) Neut % (Auto) Lymph % (Auto) [place] % (Auto) Eos % (Auto) Baso % (Auto) Lymph # (Auto) [place] # (Auto) Eos # (Auto) Baso # (Auto) Abs Immat Gran (auto) Absolute Neuts (auto) Absolute Nucleated RBC Nucleated RBC % (auto) PT INR Sodium 136 Potassium 4.6 Chloride 105 Carbon Dioxide 24 Anion Gap 12 BUN 13 Creatinine 0.66 Estim Creat Clear Calc 135.7 Estimated GFR > 60 POC Glucose 133 H Random Glucose 123 H Estimat Average Glucose 105 Hemoglobin A1c % 5.3 Lactic Acid Calcium 9.6 D Total Bilirubin Direct Bilirubin AST ALT Alkaline Phosphatase Total Protein Albumin Influenza Type A (PCR) Influenza Type B (PCR) RSV RNA Qual (PCR) SARS-CoV-2 RNA (RT-PCR) Discharge Plan Discharge Anticipated Discharge Date/Time: 08/02/22 14:26 Patient Disposition: Left Against Medical Advice Discharge Diagnosis: Asthma exacerbation SOB Referrals: Vincent Hayes, [employer] [Primary Care Provider] - 1 Week Discharge Medications: No Action prazosin 2 mg capsule 2 mg PO BEDTIME 30 Days Qty: 30 1RF albuterol sulfate [ProAir HFA] 90 mcg/actuation HFA aerosol inhaler 2 puff INHALATION QID PRN (Reason: Dyspnea) 30 Days Qty: 8.5 1RF methadone 10 mg/mL Concentrate 120 mg PO DAILY Advair HFA 115-21 mcg/actuation HFA aerosol inhaler 2 puff inhalation BID Qty: 12 0RF clonidine HCl 0.1 mg tablet 1 tab PO BID PRN (Reason: Anxiety) clonidine HCl 0.2 mg tablet 1 tab PO BEDTIME gabapentin 800 mg tablet 1 tab PO TID omeprazole 40 mg capsule,delayed release(DR/EC) 40 mg PO DAILY PRN (Reason: GI UPSET) albuterol sulfate 2.5 mg /3 mL (0.083 %) solution for nebulization 2.5 mg inhalation TID clonazepam 2 mg tablet 1 tab PO BID PRN (Reason: Anxiety) (DME) nebulizers Misc See Rx Instructions .ROUTE Rx Instructions: As directed Discharge Orders: Discharge Order (Routine); Ordered 08/02/22 Ordered By: Marce Almanza Diet: Advance to usual diet Activity on Discharge: As tolerated Stand Alone Forms: Patient Portal Discharge page, Against Medical Advice Care Plan Goals: Full recovery from asthma exacerbation Resume all home meds Health Concerns: Monitor breathing for return of wheezing and/or shortness of breath If shortness of breath returns, return to the ED immediately Plan of Treatment: Finish course of prednisone Use nebulizer daily Use rescue inhaler as needed If severe wheezing or shortness of breath returns, return to the ED immediately Assessment: See discharge summary Of note, pt received two doses of methadone 120mg during her stay: one on 08/01/22 at 22:50 and another on 08/02/22 at 9:21. Patient Instructions: Asthma (DC)
--- NOTE | 2022-08-02 14:47 | MHC.CM.PN ---
Patient left AMA.
[2022-08-02 15:39] VITALS: BP 132/96; PULSE 105; RESP 18; O2SAT 95
== END 2022-08-02 18:00 | disposition left against medical advice (07) ==
LOC: HO.ED 18:03 → HO.EDOVER 20:01
PROVIDERS: Nurse Practitioner Family; Admitting Provider Student in an Organized Health Care Education/Training Program; Emergency Provider Emergency Medicine Emergency Medical Services; PCP Nurse Practitioner Family; Visit Provider Internal Medicine
DX: J45.901 Unspecified asthma with (acute) exacerbation (principal); F39 Unspecified mood [affective] disorder; R06.02 Shortness of breath; F11.99 Opioid use, unspecified with unspecified opioid-induced disorder; R73.9 Hyperglycemia, unspecified; Z79.899 Other long term (current) drug therapy; Z20.822 Contact with and (suspected) exposure to COVID-19; Z87.891 Personal history of nicotine dependence
CPT/HCPCS: 0241U; 36415; 71045; 80048; 80076; 82947; 83036; 83605; 85025; 85610; 87040; 93005; 94640; 96361; 96374; 96375; 96376; 99218; 99285; J2550; J2920; J2930; J3475

== ENCOUNTER 2022-08-13 15:40 | Emergency (ER) | payer OTHER, SELFPAY ==
--- NOTE | 2022-08-13 16:02 | ED_ITS ---
HPI - Overdose General Stated Complaint: OD Time Seen by Provider: 08/13/22 15:56 Source: patient Mode of arrival: wheelchair Limitations: no limitations History of Present Illness HPI Narrative: She comes to the emergency room via stretcher from the employe's bathroom across the hallway that leads the main hospital to the tunnel. Patient was found down by a nurse. From what I hear from witnesses and outpatient security who went to the code asist to the bathroom, patient was found face down in the bathroom stall, half top naked. Patient received Narcan and had good response. Since patient was found have negative, the staff/security was trying to cover her up. Patient woke up at this time and accused them of touching her breasts. Patient was brought to the emergency room. Related Data Home Medications Medication Instructions Recorded Confirmed methadone 10 mg/mL oral concentrate 120 mg PO DAILY 11/30/21 08/02/22 nebulizers 05/23/22 albuterol sulfate 2.5 mg/3 mL 2.5 mg inhalation TID 08/01/22 08/01/22 (0.083 %) solution for nebulization clonazepam 2 mg tablet 1 tab PO BID PRN Anxiety 08/01/22 08/01/22 clonidine HCl 0.1 mg tablet 1 tab PO BID PRN Anxiety 08/01/22 08/01/22 clonidine HCl 0.2 mg tablet 1 tab PO BEDTIME 08/01/22 08/01/22 gabapentin 800 mg tablet 1 tab PO TID 08/01/22 08/01/22 omeprazole 40 mg capsule,delayed 40 mg PO DAILY PRN GI UPSET 08/01/22 08/01/22 release Previous Rx's Medication Instructions Recorded prazosin 2 mg capsule 2 mg PO BEDTIME 30 days #30 caps 09/18/21 fluticasone propionate 115 2 puff inhalation BID #12 grams 02/08/22 mcg-salmeterol 21 mcg/actuation HFA inhaler (Advair HFA) albuterol sulfate 90 mcg/actuation 2 puff inhalation QID PRN Dyspnea 08/02/22 aerosol inhaler (ProAir HFA) 30 days #8.5 grams prednisone 20 mg tablet 40 mg PO DAILY #6 tabs 08/02/22 Allergies Allergy/AdvReac Type Severity Reaction Status Date / Time latex [LATEX] Allergy Intermediate RASH Verified 06/21/22 21:10 adhesive tape [ADHESIVE TAPE] AdvReac Intermediate RASH Verified 06/21/22 21:10 Review of Systems Review of Systems: Constitutional : No Weight loss, No Fever, No Chills, No Night Sweats, No Fatigue, No Malaise ENT/Mouth : No Hearing loss, No Ear Pain, No Nasal Congestion, No Sinus Pain, No Hoarseness, No sore throat, No Rhinorrhea, No Swallowing Difficulty Eyes: No Eye Pain, No Swelling, No Redness, No Foreign Body, No Discharge, No Vision Changes Cardiovascular : No Chest Pain, No SOB, No Dyspnea on Exertion, No Orthopnea, No Edema, No Palpitations Respiratory : No Cough, No Sputum, No Wheezing, No Smoke Exposure, No Dyspnea Gastrointestinal : No Nausea, No Vomiting, No Diarrhea, No Constipation, No abdominal Pain, No Hematochezia, No Melena Genitourinary : no irregular bleeding, No Dysuria, No Urinary Frequency, No Hematuria, No Urinary Incontinence, No Urgency, No Flank Pain, No Urinary Flow Changes, No Hesitancy Musculoskeletal : No joint pain, No Myalgias, No Joint Swelling Skin : No Skin Lesions, No rash Neuro : No Weakness, No Numbness, No Paresthesias, No Loss of Consciousness, No Dizziness, No Headache Psych : No Anxiety/Panic, No Depression, No SI/HI/AH/VH, denies overdose, states she had a syncopal episode Heme/Lymph: No Bruising, No Bleeding,No Lymphadenopathy Endocrine : No Polyuria, No Polydipsia, No Temperature Intolerance PMFSH Past Medical History Medical History Anxiety Asthma Asthma Asthma Bipolar disorder COVID-19 Crohn's disease Depression GERD (gastroesophageal reflux disease) Opioid use disorder Pneumonia due to COVID-19 virus Pneumonitis PTSD (post-traumatic stress disorder) Family History Family History Father Colon cancer Mother No problems noted. Brother Autism Sister Bipolar disorder Maternal Aunt Breast cancer Social History Social History Household Members: Significant Other Housing: Other Housing Other:: motel Do you presently have visiting nurse or other home services: No Alcohol intake: unknown Patient Tobacco Use Status: Former Tobacco user Cigarette Packs Per Day: 0.33 Cigarettes Per Day: 6.6 Years Smoked: 9 e-Cigarette/Vaping Use: Former Use Second Hand Smoke Exposure: Yes Substance Use Type: Heroin Advance Directives Date on File: 05/07/21 service: No Current occupational status: unemployed Cognitive needs: No Hearing needs: No Vision needs: No Physical Exam Const: Other: Appearance: Alert. Oriented X3. No acute distress. Eyes: Pupils equal, round and reactive to light. ENT: Pharynx normal. Neck: Normal inspection. Neck supple. No lymph nodes noted. No crepitus CVS: Normal heart rate and rhythm. Pulses normal. Normal S1 and S2 Respiratory: No respiratory distress. Breath sounds normal. No Wheezing. No rales Abdomen: Soft and nontender. No rigidity. No distention. Skin: Skin warm and dry. Normal skin color. Normal skin turgor. Extremities: No lower extremity edema. No Lacerations. No Rash Neuro: Oriented X 3. No motor deficit. No sensory deficit. Moving all extremities. No slurred speech. CN 2 through 12 grossly intact Psych: Combative Course Course Course Narrative: When patient was found by security, patient was half naked, they were trying to cover her up. Patient received intranasal Narcan. Patient woke up and accused them touching her breast on appropriately. There were approximately 10 people in the bathroom who witnessed that the security staff was trying to cover her up. Patient is admitted that she did not overdose, states that she syncopized. However, patient is declining workup for syncope. Patient wants to be discharged. Of note, per secutory protocol, they opened her purse, they found 7 unused heroin bags and 20+ full heroin bags Patient has been in the emergency room for approximately 1 hour. Patient is alert and oriented x3, refusing vitals, accusing staff of touching her inappro priately when those areas trying to get vitals. Patient refused any further workup. Patient is awake, alert and oriented x4, normal gait, walking around the emergency room with steady gait. Patient is clinically sober. Patient's belongings were returned. The recovery team spoke with the patient, patient declines any assistance Patient is adamant that she syncopized and did not use drugs. However, the circumstances in which she was found, most likely she overdosed Discharge Plan Discharge Clinical Impression: Overdose Patient Disposition: Home, Self-Care Prescriptions: No Action prazosin 2 mg capsule 2 mg PO BEDTIME 30 Days Qty: 30 1RF methadone 10 mg/mL Concentrate 120 mg PO DAILY Advair HFA 115-21 mcg/actuation HFA aerosol inhaler 2 puff inhalation BID Qty: 12 0RF clonidine HCl 0.1 mg tablet 1 tab PO BID PRN (Reason: Anxiety) clonidine HCl 0.2 mg tablet 1 tab PO BEDTIME gabapentin 800 mg tablet 1 tab PO TID omeprazole 40 mg capsule,delayed release(DR/EC) 40 mg PO DAILY PRN (Reason: GI UPSET) albuterol sulfate 2.5 mg /3 mL (0.083 %) solution for nebulization 2.5 mg inhalation TID clonazepam 2 mg tablet 1 tab PO BID PRN (Reason: Anxiety) prednisone 20 mg tablet 40 mg PO DAILY Qty: 6 0RF albuterol sulfate [ProAir HFA] 90 mcg/actuation HFA aerosol inhaler 2 puff INHALATION QID PRN (Reason: Dyspnea) 30 Days Qty: 8.5 1RF (DME) nebulizers Misc See Rx Instructions .ROUTE Rx Instructions: As directed
--- NOTE | 2022-08-13 16:15 | HO.SUDE ---
Late entry. Pt seen 08/13/22 3515. Pt declined SUDE. Requesting dc.
[2022-08-13 16:32] VITALS: BP 00/00; PULSE 0; RESP 0; TEMP -17.7; TEMP 0; O2SAT 0; BMI 28.6
--- NOTE | 2022-08-13 16:37 | PC.NURSE ---
pct attempted to vitalize patient and draw labs, patient refused all care greene not want any further care done and wants to be discharged. RN aware
--- NOTE | 2022-08-13 16:37 | PC.NURSE ---
Patient refused vitals, labs, assessment, and all care. Patient wants to leave MD aware will watch until discharged.
[2022-08-13] MEDS: Naloxone HCl Nasal TAKE HOME 4 MG SPRAY NOSTRILALT (16:39)
--- NOTE | 2022-08-13 17:00 | PC.NURSE ---
[place] suicide severity scale was not done by this nurse because patient refused all care. Only did it for so I could discharge her.
--- NOTE | 2022-08-13 17:27 | PC.NURSE ---
PT WAS ESCORTED OUT OF THE ED BY THIS RN AND SECURITY, , SHE REFUSED TO TAKE THE NARCAN GIVEN FOR HOME, SECURITY WAS CALLED BY THE PRIMARY RN THE PT WAS YELLING ON HER PHONE INAPPROPRIATELY WHILE GATHERING HER BELONGINGS.
--- NOTE | 2022-08-13 17:36 | MHC.RECOVSUP ---
? Reason for consult Recovery Support o Current location: [place] o Identified substance use concern: [place] - Overdose - Support ? Intervention: <del>o</del> <del>ATS</del> <del>bed</del> <del>search</del> <del>started/completed/in</del> <del>process</del> <del>o</del> <del>MAT</del> <del>started</del> <del>or</del> <del>to</del> <del>be</del> <del>started</del> <del>o</del> <del>Community</del> <del>resources</del> <del>provided</del> <del>o</del> <del>Harm</del> <del>reduction</del> <del>discussion</del> ? Plan: <del>o</del> <del>Referral</del> <del>to</del> <del>[facility]</del> <del>o</del> <del>Bed</del> <del>search</del> <del>in</del> <del>progress</del> <del>to</del> <del>o</del> <del>Follow</del> <del>up</del> <del>tomorrow</del> <del>o</del> <del>Patient</del> <del>awaiting</del> <del>crisis</del> <del>evaluation</del> <del>o</del> <del>Patient</del> <del>to</del> <del>follow</del> <del>up</del> <del>with</del> <del>[facility]</del> <del>after</del> <del>discharge</del> ? Additional information: Patient refused any service
== END 2022-08-13 17:01 | disposition home or self-care (01) ==
LOC: HO.ED 16:46
PROVIDERS: Emergency Provider Emergency Medicine
DX: R40.4 Transient alteration of awareness (principal); T40.1X1A Poisoning by heroin, accidental (unintentional), initial encounter; Y92.238 Other place in hospital as the place of occurrence of the external cause; F11.99 Opioid use, unspecified with unspecified opioid-induced disorder
CPT/HCPCS: 99283

== ENCOUNTER 2022-08-14 05:34 | Emergency (ER) | payer OTHER, SELFPAY ==
[2022-08-14 05:53] VITALS: RESP 16; O2SAT 95; BMI 22.4
[2022-08-14 06:00] VITALS: BP 119/73; PULSE 96; RESP 17; TEMP 36.5; O2SAT 97
--- NOTE | 2022-08-14 06:52 | ED_ITS ---
HPI - General Adult General Chief complaint: General Medical Stated complaint: pt is cold Time Seen by Provider: 08/14/22 06:41 Source: patient Mode of arrival: ambulatory History of Present Illness HPI narrative: 26-year-old female who denies any medical complaints, but states that she was unable to get a hold of a friend of hers and was stuck outside in the cold and ?felt like I was going to become hypothermic?. Related Data Home Medications Medication Instructions Recorded Confirmed methadone 10 mg/mL oral concentrate 120 mg PO DAILY 11/30/21 08/02/22 nebulizers 05/23/22 albuterol sulfate 2.5 mg/3 mL 2.5 mg inhalation TID 08/01/22 08/01/22 (0.083 %) solution for nebulization clonazepam 2 mg tablet 1 tab PO BID PRN Anxiety 08/01/22 08/01/22 clonidine HCl 0.1 mg tablet 1 tab PO BID PRN Anxiety 08/01/22 08/01/22 clonidine HCl 0.2 mg tablet 1 tab PO BEDTIME 08/01/22 08/01/22 gabapentin 800 mg tablet 1 tab PO TID 08/01/22 08/01/22 omeprazole 40 mg capsule,delayed 40 mg PO DAILY PRN GI UPSET 08/01/22 08/01/22 release Previous Rx's Medication Instructions Recorded prazosin 2 mg capsule 2 mg PO BEDTIME 30 days #30 caps 09/18/21 fluticasone propionate 115 2 puff inhalation BID #12 grams 02/08/22 mcg-salmeterol 21 mcg/actuation HFA inhaler (Advair HFA) albuterol sulfate 90 mcg/actuation 2 puff inhalation QID PRN Dyspnea 08/02/22 aerosol inhaler (ProAir HFA) 30 days #8.5 grams prednisone 20 mg tablet 40 mg PO DAILY #6 tabs 08/02/22 Allergies Allergy/AdvReac Type Severity Reaction Status Date / Time latex [LATEX] Allergy Intermediate RASH Verified 06/21/22 21:10 adhesive tape [ADHESIVE TAPE] AdvReac Intermediate RASH Verified 06/21/22 21:10 Review of Systems Review of Systems: Pertinent positives and negatives as stated in HPI. COUNT INCLUDES THE [facility] Past Medical History Source: nursing notes reviewed Medical History Anxiety Asthma Asthma Asthma Bipolar disorder COVID-19 Crohn's disease Depression GERD (gastroesophageal reflux disease) Opioid use disorder Pneumonia due to COVID-19 virus Pneumonitis PTSD (post-traumatic stress disorder) Family History Family History Father Colon cancer Mother No problems noted. Brother Autism Sister Bipolar disorder Maternal Aunt Breast cancer Social History Social History Household Members: Significant Other Housing: Other Housing Other:: motel Do you presently have visiting nurse or other home services: No Alcohol intake: unknown Patient Tobacco Use Status: Former Tobacco user Cigarette Packs Per Day: 0.33 Cigarettes Per Day: 6.6 Years Smoked: 9 e-Cigarette/Vaping Use: Former Use Second Hand Smoke Exposure: Yes Substance Use Type: Heroin Advance Directives: No Advance Directives Information Provided: No Advance Directives Date on File: 05/07/21 service: No Current occupational status: unemployed Cognitive needs: No Hearing needs: No Vision needs: No Physical Exam ED Vital Signs: Vital Signs - 24 hr 08/14/22 05:53 08/14/22 06:00 08/14/22 07:10 Temperature 97.7 F 98.8 F Pulse Rate 96 90 Respiratory Rate 16 17 15 Blood Pressure 119/73 112/65 Pulse Oximetry 95 97 98 Oxygen Delivery Method Room Air Room Air Room Air BMI result Body Mass Index 22.4 VITAL SIGNS: Reviewed. GENERAL: Well developed, well nourished, in no acute distress. HEAD: Normocephalic/atraumatic EYES: PERRLA, EOMI LUNGS: Normal breath sounds. SpO2<97> CARDIOVASCULAR: Regular rate and rhythm without noted murmurs ABDOMEN: Soft, non-tender, non-distended with bowel sounds. NEUROLOGIC: Alert and oriented x 3. Course Course Course Narrative: 26-year-old female with history and clinical presentation of no medical complaints, but stating that it is cold outside. Review of vital signs demonstrates good oxygenation and temperature is within normal limits. Will attempt to provide oral intake and likely discharge home. There is no evidence to suggest exacerbation of her underlying medical conditions of asthma or mood disorder/bipolar. After patient has tolerated oral intake, she is otherwise hemodynamically stable and has access to her home at this time. She is discharged home in stable condition I did provider with home Narcan as she has a history of opioid use. Discharge Plan Discharge Clinical Impression: Opioid use disorder, Physical exam Patient Disposition: Home, Self-Care Instructions: Normal Exam (ED) Additional Instructions: Return to the ER for any worsening symptoms. Prescriptions: No Action prazosin 2 mg capsule 2 mg PO BEDTIME 30 Days Qty: 30 1RF methadone 10 mg/mL Concentrate 120 mg PO DAILY Advair HFA 115-21 mcg/actuation HFA aerosol inhaler 2 puff inhalation BID Qty: 12 0RF clonidine HCl 0.1 mg tablet 1 tab PO BID PRN (Reason: Anxiety) clonidine HCl 0.2 mg tablet 1 tab PO BEDTIME gabapentin 800 mg tablet 1 tab PO TID omeprazole 40 mg capsule,delayed release(DR/EC) 40 mg PO DAILY PRN (Reason: GI UPSET) albuterol sulfate 2.5 mg /3 mL (0.083 %) solution for nebulization 2.5 mg inhalation TID clonazepam 2 mg tablet 1 tab PO BID PRN (Reason: Anxiety) prednisone 20 mg tablet 40 mg PO DAILY Qty: 6 0RF albuterol sulfate [ProAir HFA] 90 mcg/actuation HFA aerosol inhaler 2 puff INHALATION QID PRN (Reason: Dyspnea) 30 Days Qty: 8.5 1RF (DME) nebulizers Misc See Rx Instructions .ROUTE Rx Instructions: As directed
[2022-08-14 07:10] VITALS: BP 112/65; PULSE 90; RESP 15; TEMP 37.1; O2SAT 98
== END 2022-08-14 08:50 | disposition home or self-care (01) ==
PROVIDERS: Emergency Provider Student in an Organized Health Care Education/Training Program
DX: F11.20 Opioid dependence, uncomplicated (principal); F39 Unspecified mood [affective] disorder; F41.9 Anxiety disorder, unspecified; F43.10 Post-traumatic stress disorder, unspecified; Z59.00 Homelessness unspecified; Z79.899 Other long term (current) drug therapy
CPT/HCPCS: 99283

== ENCOUNTER 2022-09-25 11:55 | Emergency (ER) | payer OTHER, SELFPAY ==
--- NOTE | ~2022-09-25 | CT_ITS ---
EXAMINATION: CT BRAIN AND CT CERVICAL SPINE WITHOUT CONTRAST. CLINICAL INFORMATION: Head injury. COMPARISON: None TECHNIQUE: 5 mm thin axial and reformatted 2 mm thin sagittal and coronal images of brain were obtained. Subsequently axial 3 mm thin and reformatted 2 mm thin sagittal and coronal images of cervical spine were obtained. DLP 1046. This CT examination was performed using dose optimization technique as appropriate, variously including the following: Automated exposure control Adjustment of MA and/or KV according to patient size(this includes techniques or standardized protocols for targeted exams where dose is matched to indication/reason for exam; extremities or head. Use of iterative reconstruction techniques. FINDINGS: Brain: There is a right frontoparietal scalp hematoma without calvarial fracture. There is no acute intra-axial, extra-axial bleed, masses or midline shift. There is no acute infarction in evolution. The shrestha to white matter differentiation is maintained normal. The lateral ventricles are symmetrical in size and configuration without enlargement. There is diffuse mucoperiosteal thickening involving bilateral maxillary and ethmoid sinuses. Rest the paranasal sinuses and mastoid air cells are well-aerated. Cervical spine: There is mild straightening of cervical lordosis. The vertebral heights, alignment and disc heights are normal. The craniovertebral junction and the C1-C2 alignment is normal. There is no visible acute fracture, dislocation or subluxation seen. The prevertebral and paravertebral soft tissues are normal. The airway is widely patent. The lung apices are clear. CT/CT cervical spine wo IV con IMPRESSION: No acute intracranial process seen. There is mild straightening of cervical lordosis. No visible acute fracture, dislocation or subluxation seen.
--- NOTE | ~2022-09-25 | CT_ITS ---
EXAMINATION: CT BRAIN AND CT CERVICAL SPINE WITHOUT CONTRAST. CLINICAL INFORMATION: Head injury. COMPARISON: None TECHNIQUE: 5 mm thin axial and reformatted 2 mm thin sagittal and coronal images of brain were obtained. Subsequently axial 3 mm thin and reformatted 2 mm thin sagittal and coronal images of cervical spine were obtained. DLP 1046. This CT examination was performed using dose optimization technique as appropriate, variously including the following: Automated exposure control Adjustment of MA and/or KV according to patient size(this includes techniques or standardized protocols for targeted exams where dose is matched to indication/reason for exam; extremities or head. Use of iterative reconstruction techniques. FINDINGS: Brain: There is a right frontoparietal scalp hematoma without calvarial fracture. There is no acute intra-axial, extra-axial bleed, masses or midline shift. There is no acute infarction in evolution. The shrestha to white matter differentiation is maintained normal. The lateral ventricles are symmetrical in size and configuration without enlargement. There is diffuse mucoperiosteal thickening involving bilateral maxillary and ethmoid sinuses. Rest the paranasal sinuses and mastoid air cells are well-aerated. Cervical spine: There is mild straightening of cervical lordosis. The vertebral heights, alignment and disc heights are normal. The craniovertebral junction and the C1-C2 alignment is normal. There is no visible acute fracture, dislocation or subluxation seen. The prevertebral and paravertebral soft tissues are normal. The airway is widely patent. The lung apices are clear. CT/CT head/brain wo IV con IMPRESSION: No acute intracranial process seen. There is mild straightening of cervical lordosis. No visible acute fracture, dislocation or subluxation seen.
[2022-09-25 12:04] VITALS: BP 135/80; PULSE 113; O2SAT 98
[2022-09-25 12:06] VITALS: BP 131/88; PULSE 114; RESP 19; TEMP 36.6; O2SAT 98; BMI 23.3
--- OUTSIDE RECORDS SUMMARY | 2022-09-25 12:31 | XMS_ITS | Continuity of Care Document ---
:1995 Author Organization [facility] Address [address] [place] [address]- Care Team Providers Name Role Phone Not on Staff, PCP Primary Care Physician Unavailable Encounter [facility] Date(s): 09/10/22 - 09/12/[address] [id number] Encounter Diagnosis Asthma exacerbation (Final) - 09/10/22 Viral illness (Final) - 09/10/22 Discharge Disposition: A-D/C Home Attending Physician: Petr MACKEY, Jean Marie Admitting Physician: Elizabeth MACKEY, Charlie P Referring Physician: Not on Staff, Referring MD Allergies, Adverse Reactions, Alerts Substance Reaction Severity Status Adhesive Bandage Unknown Active Latex Active Immunizations Given and Recorded Vaccine Date Status Refusal Reason SARS-CoV-2 (COVID-19) mRNA-1273 vaccine 05/23/22 Recorded SARS-CoV-2 (COVID-19) mRNA-1273 vaccine 11/03/20 Recorded SARS-CoV-2 (COVID-19) mRNA-1273 vaccine 10/05/20 Recorded tetanus/diphtheria/pertussis, acel(Tdap) 01/27/18 Given Not Given Vaccine Date Status Refusal Reason influenza virus vaccine, inactivated1 05/13/20 Not Given Parent Or Guardian Refuses 1Result Comment: Education provided Medications Aerochamber See Instructions, # 2 each, Maintenance, use with albuterol and symbicort inhalers, 03/14/19 19:35:42 EDT, Compound Start Date: 03/14/19 Status: OrderedAlbuterol (Eqv-ProAir HFA) 90 mcg/inh inhalation aerosol 2 puffs, Inhalation, Every 6 hours, PRN Wheezing/Shortness of Breath, # 18 Gm, 0 Refills, Maintenance, 09/12/22 16:15:00 EST, [facility]/pharmacy #[id number], Partial fill upon patient request if the prescription is for a schedule II opioid drug., 2 puffs Inhalati... Start Date: 09/12/22 Status: Orderedalbuterol 0.083% inhalation solution 3 mL = 2.5 mg, BAND Nebulizer, 4 times a day, PRN Wheezing/Shortness of Breath, # 100 each, 1 Refills, Maintenance, 03/05/21 9:09:00 EDT, Inhalation Solution, Partial fill upon patient request if the prescription is for a schedule II opioid drug., 165... Start Date: 03/05/21 Stop Date: 05/04/21 Status: OrderedclonazePAM 2 mg oral tablet 1 tablet = 2 mg, By Mouth, 2 times a day, 0 Refills, Maintenance, 09/11/22 9:48:00 EST, Tablet, Partial fill upon patient request if the prescription is for a schedule II opioid drug. Start Date: 09/11/22 Status: OrderedcloNIDine 0.1 mg oral tablet 0.1 mg, 1, tablet, By Mouth, 3 times a day, PRN, Refills 0, Maintenance, Anxiety, 03/02/21 5:20:00 EDT, Partial fill upon patient request if the prescription is for a schedule II opioid drug. Start Date: 03/02/21 Status: Orderedcyclobenzaprine 5 mg oral tablet 1.5 tablet = [...] oral capsule 400 mg, Capsule, By Mouth, 09/12/22 15:00:00 EST Start Date: 09/12/22 Stop Date: 09/12/22 Status: Completedgabapentin 400 mg oral capsule 400 mg, Capsule, By Mouth, 09/12/22 9:00:00 EST Start Date: 09/12/22 Stop Date: 09/12/22 Status: CompletedMelatonin 10 mg oral tablet 1 tablet = 10 mg, By Mouth, Daily at bedtime, 0 Refills, Maintenance, 03/02/21 18:58:00 EDT, Partialfill upon patient request if the prescription is for a schedule II opioid drug. Start Date: 03/02/21 Status: OrderedMethadone Tablet 40 mg, Tablet, By Mouth, 09/12/22 9:00:00 EST Start Date: 09/12/22 Stop Date: 09/12/22 Status: CompletedNarcan 4 mg/0.1 mL nasal spray See Instructions, [...] opioid drug. Start Date: 03/02/21 Status: OrderedpredniSONE 20 mg oral tablet See Instructions, 2 tablet By Mouth Once tonight then 2 tablet daily for 3 more days, # 8 tablet, 0 Refills, Soft Stop, 09/12/22 16:09:00 EST, Tablet, [facility]/pharmacy #[id number], Partial fill upon patient request if the prescription is for a schedule II opio... Start Date: 09/12/22 Status: OrderedSymbicort 80mcg/4.5mcg Inhaler 2, puffs, Inhalation, 2 times a day, rinse mouth and throat after use, # 1 each, Refills 0, Tot. Refills 0, Maintenance, 09/12/22 16:14:00 EST, Aerosol, Route to Pharmacy Electronically, [id number], [facility]/pharmacy #[id number], [address], c... Start Date: 09/12/22 Status: OrderedtraZODone 50 mg oral tablet 50 mg, 1, tablet, By Mouth, Daily at bedtime, # 30 tablet, Refills 1, Tot. Refills 1, Maintenance, 03/14/19 19:37:33 EDT, Route to Pharmacy Electronically, [facility]/pharmacy #[id number] Start Date: 03/14/19 Stop Date: 05/13/19 Status: Ordered Problem List Condition Confirmation Course Effective Dates Status Health I nformant Status Anxiety Confirmed Active Asthma, persistent, Confirmed Active severity to be determined Insomnia Confirmed Active Polysubstance abuse Confirmed Active PTSD (post-traumatic Confirmed Active stress disorder) Underweight Confirmed Active Results Radiology Reports Exam Date Time Procedure Performing Provider Status 09/10/22 10:10 PM Chest Portable [facility] [place] ([facility] ed) Notes:(Chest Portable) Reason For Exam: Shortness of BreathRESULT: Chest Portable Chest Portable Reason: Shortness of Breath; Clinical Question(s): CHF COMPARISON: 03/04/2021 FINDINGS: LINES AND TUBES: None. LUNGS AND PLEURA: Clear lungs. Normal pulmonary vascularity. No pleural effusion. No pneumothorax. HEART, MEDIASTINUM AND YESICA: Heart is normal in size. Normal mediastinal and hilar contour. BONES AND SOFT TISSUES: No acute abnormality. IMPRESSION: No evidence of acute cardiopulmonary pathology. WSN: [id number] Ordering Physician: Tanner Pandya Dictated By: Chaitanya Meyers MD Dictated Date/Time: 09/10/22 10:21 p Reviewed By: Chaitanya Meyers MD Signed By: Chaitanya Meyers MD Signed Date/Time: 09/10/22 10:21 pm Transcribed By: ARLINE Transcribed Date/Time: 09/10/22 10:21 pm Vital Signs Most recent to oldest 1 2 3 4 [Reference Range]: Height 165 cm (09/11/22 5:46 AM) Weight 71.4 kg 69.9 kg 50 kg (09/12/22 2:00 AM) (09/11/22 5:51 AM) (09/11/22 5:46 AM) Oxygen Saturation 95 % 95 % 99 % [94-100 %] (09/12/22 2:00 PM) (09/12/22 10:00 AM) (09/12/22 8:00 AM) Pulse Rate [55-90 102 bpm 101 bpm 100 bpm bpm] *H* *H* *H* (09/12/22 2:00 PM) (09/12/22 10:00 AM) (09/12/22 8:00 AM) Body Mass Index 18.37 kg/m2 [18.5-24.99 kg/m2] *L* (09/11/22 5:46 AM) Blood Pressure 131/74 mm Hg 121/68 mm Hg 112/70 mm Hg [90-138/55-84 mm Hg] (09/12/22 2:00 PM) (09/12/22 10:00 AM) (09/12/22 8:00 AM) Respiratory Rate 16 br/min 14 br/min 22 br/min 22 br/min [16-30 br/min] (09/12/22 2:11 PM) *L* (09/12/22 9:12 AM) ( 9:12 AM) (09/12/22 10:00 AM) Temperature 98.2 DegF 98.3 DegF 98 DegF [96.8-100.4 DegF] (09/12/22 2:00 PM) (09/12/22 10:00 AM) (09/12/22 8:0 0 AM) Liters per Minute 2 L/min 2 L/min 2 L/min (09/12/22 8:00 AM) (09/12/22 2:00 AM) (09/11/22 10:18 PM) Mode of Delivery Room air Room air Oxymask/Variable Concent ration Mask (Oxygen) (09/12/22 2:00 PM) (09/12/22 10:00 AM) (09/12/22 8:00 AM) Blood pressure sites Arm, left Arm, left Arm, left (09/12/22 2:00 PM) (09/12/22 10:00 AM) (09/12/22 8:00 AM) Temperature Route Oral Oral Oral (09/12/22 2:00 PM) (09/12/22 10:00 AM) (09/12/22 8:00 AM) Dry Weight 68 kg (09/11/22 5:46 AM) Weight Obtained Via Bed scale Bed scale (09/12/22 2:00 AM) (09/11/22 5:51 AM) Dry Weight Obtained Bed scale Via (09/11/22 5:46 AM) Social History Social History Type Response Smoking Status 10 or more cigarettes (1/2 p ack or more)/day in last 30 days entered on: 08/21/20 Sex History and physical note Elizabeth MACKEY, Charlie P: PERFORM Event Display: History and Physical Hospital Authored Date: Patient: ??JACIEL MONAE ? Age:??27 Years?Sex:??Female?:??1995?? Chief Complaint/Reason for Consultation Progressively worsening difficulty breathing for a few days History of Present Illness Date: 09/10/2022 Source: Review of EMR. Patient received Ativan and is not cooperating with the interview at this time. ?? 27-year-old white female with a history of poorly controlled asthma with a history of 2 intubations in the past who presented to the emergency room via EMS complaining of progressively worsening difficulty breathing for a few days now.?? She??reportedly was recently??diagnosed with RSV and has been having difficulty breathing since then. This though became worse a few hours prior to her??presentation.?? She reportedly used her nebulizer multiple times at home without any significant relief and??continued to have increased work of breathing.?? When EMS got to her she was saturating in the upper 80s on room air so was placed on CPAP which seemed to help her breathing.?? She??unfortunately continued to be very??anxious??and tachypneic breathing at up to 40 times a minute?and??so received 0.5 mg of Ativan. Admission was requested for continued care. Review of Systems 12 system review was attempted but could not be completed since patient is currently??mildly sedated after receiving Ativan, is on CPAP and??not very cooperative with the??history taking process. Objective Vital Signs:?? Temp - 97.9 F;?? MA - 109 bpm;?? RR - 18 br/min;?? BP - 115/81 mmHg;?? SaO2 - 99% on4L ?? Physical Exam General:??Alert, in no acute cardiopulmonary distress. Mental Status:??Oriented to person, place and time. Normal affect. Head:??Normocephalic.?? Atraumatic. Eyes:??No pallor or jaundice. ??Pupils are equal, round and reactive to light. Extraocular muscles intact. Ear, Nose and Throat:??Oropharynx clear, mucous membranes moist.??Trachea midline. Neck:??Supple, Full range of motion. Respiratory:??Coarse bilateral breath sounds in the anterolateral lung olivera with few end expiratory wheezes especially in left upper lung olivera.?? Cardiovascular:??Tachycardic but regular with normal S1/S2. ??No murmurs, rubs or gallops. Gastrointestinal:??Abdomen soft, non-tender, non-distended. Normal bowel sounds. No pulsatile mass.No hepatosplenomegaly. Genitourinary:??No costovertebral angle tenderness. Neurologic:??In bed on CPAP. Appears mildly sedated and not cooperating with interview or exam. Comprehensive neuro exam therefore not carried out. Skin:??No rashes or lesions. No petechiae or purpura. No edema. Musculoskeletal:??No cyanosis or clubbing. No gross deformities. Normal range of motion. Lymphatics:??Palpation of neck with no swollen or tender lymph nodes. Assessment/Plan Assessment:??27-year-old??white female with a known history of asthma??no previous acute exacerbations requiring intubation here with ?? Asthma exacerbation (J45.901):? - severe at time of presentation - appears to be improving while on CPAP and after having received Albuterol updrafts - also received Ativan which helped her calm down - will continue with current treatments - continue IV Solu-Medrol and updrafts - start Breo in place of Advair - check ABG ?? Please note that I was not able to reconcile patients medications since??she was sedated at the time of my evaluation and so this will need to be dom ?? VTE Prophylaxis:? - Low risk - SCDs ?VTE Prophylaxis Assessment:??VTE Prophylaxis Ordered ?? Code Status:? - Full code ?Order Code Status:??Code Status Ordered ?? Discharge Planning:? Histories Allergies Latex? Adhesive Bandage? Past Medical History/Problem List Anxiety Asthma, persistent, severity to be determined Cervical lymphadenopathy Insomnia Polysubstance abuse PTSD (post-traumatic stress disorder) ? Past Surgical History Extraction of wisdom tooth ? Social History Alcohol Details:??Use: Never. Employment/School Details:??Status: Employed. 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 ??Previous employment/school: Graduated from [employer]. ??Highest education level: Some college. Home/Environment Details:??Living situation: Home/Independent. ??Lives with: Father, Mother. ??Feels unsafe at home:No. ??Smoker in household: Yes. Substance Abuse Details:??Use: Past. ??Type: Cocaine, Heroin, Marijuana. ??Substance abuse in household: Yes. ??Other: Patient wishes to keep substance abuse treatment private from parents. see SW note from 02/03/2019for more details. ??IV drug use: No. ??Previous treatment: Treatment center. Tobacco Details:??Use: 10 or more cigarettes (1/2 pack or more)/day in last 30 days. ? Family History Father: Alcoholism; GERD - Gastro-esophageal reflux disease; PUD - Peptic ulcer disease; Pancreaticcancer; Substance abuse ? Medications Home Medications Albuterol 90 mcg/inh inhalation powder -?2?puffs?Every 4 hours?as needed?for SOB Albuterol (albuterol 0.083% inhalation solution)?3?Milliliter?2.5?Milligram?BAND Nebulizer?4 times a day?as needed?Wheezing/Shortness of Breath?for 30?Days Buprenorphine-Naloxone (Suboxone 8 mg-2 mg SL film)?2 films?Daily?dissolve under the tongue Buprenorphine-Naloxone (Suboxone 8 mg-2 mg SL film)??1?Film?2 times a day?dissolve under the tongue. Clonidine?0.1?Milligram??By Mouth?3 times a day?as needed?Anxiety Cyclobenzaprine??7.5?Milligram?By Mouth?3 times a day?as needed [id number]?Milligram?By Mouth?Daily at bedtime Fluticasone-Salmeterol (Advair Diskus 250 mcg-50 mcg inhalation powder)?1?inhalation?Inhalation?2 times a day?for 30?rinse mouth and throat after use?Days Gabapentin 400?Milligram?By Mouth?3 times a day Melatonin?10?Milligram?By Mouth?Daily at bedtime Naloxone (Narcan 4 mg/0.1 mL nasal spray)?See Instructions?4 mg Naris, Left Once for Naproxen?500?Milligram?By Mouth?2 times a day Omeprazole?? 40?Milligram?By Mouth?Daily Prazosin 1?Milligram?By Mouth?Daily at bedtime?? Prazosin 2?Milligram?By Mouth?Daily at bedtime Risperidone?0.25?Milligram?By Mouth?Daily in AM Risperidone??0.5?Milligram??By Mouth?Daily at bedtime Sertraline?50?Milligram?By Mouth?Daily Trazodone 50?Milligram??By Mouth?Daily at bedtime?for 30?Days ? Hospital Progress note Mary Cyr RN: VERIFY, PERFORM, SIGN Event Display: Progress Note Hospital Authored Date: Patient: JACIEL MONAE Age: 27 years Sex: Female : 1995 Associated Diagnoses: None Author: Mary Cyr RN Findings Problem Related to Alteration in Psychosocial : Alteration in Psychosocial Function/new 09/12/2022 17:00 EST Alteration in Psychosocial Related to Anxiety, Ineffective coping, Substance abuse Goals & Outcomes, Psychosocial Psychosocial support will be provided to Pt/S.O. as needed, Pt will identify stressors leading up to event, Pt will state importance of adhering to medication regime, Pt/caregiver will be offered appropriate resources & support, Pt/caregiver will express feelings/needs/fears /concerns, Pt/caregiver will maintain/obtain psychological stability, Pt/caregiver willparticipate in coping skill counseling, Pt will be free from anxiety Interventions, Psychosocial Assess psychosocial needs, Assess readiness to learn needed lifestyle changes, Assess/monitor level of consciousness, Collaborate with provider for psychiatric consult, Evaluate resources & support system available to pt, Offer support; discuss coping strategies, Provide a calm, supportive environment, Provide chances to express concerns/emotions/expectations, Provideinfo on community resources for education, support, Provide information about illness and recovery, Provide verbal limits if pt's behavior escalates BH Goals/Interventions, Psychosocial Yes Psychosocial, Problem Start 09/12/2022 7:00 Reviewed Plan with, Psychosocial Patient Patient Progression, Psychosocial Plan Initiation . Alteration in Respiratory Function (new) : Alteration in Respiratory Function/new 09/12/2022 17:00 EST Alteration in Resp Status Related to Asthma Goals & Outcomes, Respiratory Pt will maintain/resume baseline physical assessment, Pt will maintain adequate nutritional intake, Pt will maintain/resume normal fluid/electrolyte balance Interventions, Respiratory Assess/monitor tolerance to IV infusions; verify rate/dose, Assess for and report S&S of respiratory distress, Position for comfort & optimal oxygenation, Initiate pulmonary rehab nurse consult, Monitor sputum color & consistency. Report changes to MD, Teach/encourage use of incentive spirometer, Teach the proper use of inhalers, Teach Pt/caregiver Smoking cessation education, Teach purse lip breathing as needed for breathing retraining, Teach tripod positioning to promote air exchange, Provide asthma education BH Goals/Interventions, Respiratory Yes Respiratory, Problem Start 09/11/2022 10:59 Reviewed Plan with, Respiratory Patient Patient Progression, Respiratory Patient progressing according to plan . Evaluation pt a&ox4, c/o mild pain in back from coughing,, managed with sched pain meds. Anxiety managed with pen anxiety meds and talking. Lungs are raspy and wheezy, pt is dyspneic when ambualting on room air, after a long walk in hallway and down to cafe pt O2 sat maintain at 96%. HR ST, EKG obtained, passed along to MD via Enval. Pt asks to be discharged home, RN educated pt on benefits of staying in hospital one more night, pt understands benefits of staying and risks of leaving as evidenced by teachback. Pt asks if she can come back to ED if needed. MD made aware. Pt discharged to home with mother.Methadone note provided along with dc education to patient. IVs removed earlier, tips intact. Pt ambulatory out of room with RN. . Discharge Information Pulmonary Rehab Discharge : Pulmonary Rehab Discharge Status 09/11/2022 0:23 EST CPAP/BiPAP Mask Type Full CPAP/BiPAP Mask Size Medium 09/10/2022 22:13 EST CPAP/BiPAP Mask Type Full CPAP/BiPAP Mask Size MediumTimilsina , Jean Marie: PERFORM Event Display: Progress Note Hospital Authored Date: [id number] Patient: ??JACIEL MONAE ? Age:??27 Years?Sex:??Female?:??1995?? Subjective Seen and evaluated by the bedside Reports improvement in terms of breathing However nauseous this morning and seeking promethazine Saturating well on 2 L of oxygen via nasal cannula, able to speak in full sentences Slightly tachycardic??otherwise VS stable Downgrade to medical unit today Review of Systems Denies any fever, chills, rigors Denies any abdominal pain, constipation, diarrhea Denies any headache, blurry vision, dizziness Denies any chest pain, palpitations Denies any??urinary symptoms Objective Measurements?? Height: 165 cm (09/11/22) Weight: 71.4 kg (09/12/22) Dry Weight: 68 kg (09/11/22) Body Mass Index:??18.37 kg/m2??Low (09/11/22) ? Vital Signs?? Temperature: 98.2 DegF (09/12/22 14:00:00) Temperature Route: Oral (09/12/22 14:00:00) Pulse Rate:??102 bpm??High (09/12/22 14:00:00) Heart Rate Monitored:??119 bpm??High (09/11/22 18:00:00) Respiratory Rate: 16 br/min (09/12/22 14:11:00) Systolic Blood Pressure: 131 mm Hg (09/12/22 14:00:00) Diastolic Blood Pressure: 74 mm Hg (09/12/22 14:00:00) Blood pressure sites: Arm, left (09/12/22 14:00:00) Pulse Pressure: 57 mm Hg (09/12/22 14:00:00) Oxygen Saturation: 95 % (09/12/22 14:00:00) Liters per Minute: 2 L/min (09/12/22 08:00:00) Mode of Delivery (Oxygen): Room air (09/12/22 14:00:00) Early Warning Score: 3 (09/12/22 14:34:03) ? Intake/Output? 09/10 23:31 09/12 07:00 09/11 07:00 09/10 07:00 09/09 07:00 ?? 09/12 15:45 09/12 15:45 09/12 06:59 09/11 06:59 09/10 06:59 Intake ?640 ?0 ?540 ?100 ?0 Output ? 2025 ?300 ? 1725 ?0 ?0 Net Total ?-1385 ? -300 ?-1185 ?100 ?0 ? Physical Exam Constitutional: Awake, alert and oriented x4. NAD. Lying comfortably in bed,on 2 l of o2 via nc HEENT: Normocephalic. Atraumatic. PERRLA, EOMI. Respiratory:??end expiratory wheeze in all the auscultatory zones, no creps Cardiovascular: RRR. No murmurs, rubs or gallops. Capillary Refill Less than one second in BL??UE/ LE. 2+ radial and pedal pulses. Gastrointestinal: Abdomen soft, non-tender, non-distended. + bowel sounds. no organomegaly Neurologic: Smooth, coordinated, and spontaneous movement of extremities. MSK:??Equal 5 out of 5 strength in UEs and LE??BL Skin: No rashes or lesions. Extremities: No cyanosis or clubbing. No gross deformities. Normal range of motion. Psychiatric: anxious but pleasant _ Inpatient Medications Medications (24) Active SCHEDULED: (12) Albuterol/Ipratropium Inhalation Sobia 3mL (Duoneb Inhalation Solution) ??1 vials, BAND Nebulizer, 4 times a day Gabapentin 400 mg Capsule (gabapentin 400 mg oral capsule) ??400 mg, By Mouth, 3 times a day Melatonin 3 mg Tablet (Melatonin Tablet) ??9 mg, By Mouth, Daily at bedtime Methadone 10 mg Tablet (Methadone Tablet) ??40 mg, By Mouth, Daily MethylPREDNISolone Sodium Succinate 40 mg Inj (SoluMedrol Inj) ??40 mg, IV Push Slowly, 2 times a day NaCl 0.9% Flush 3ml (NaCL 0.9% Flush) ??3 mL, IV Push, Every 8 hours Pantoprazole 40 mg EC Tablet (pantoprazole 40 mg oral delayed release tablet) ??40 mg, By Mouth, Daily Prazosin 1 mg Capsule (prazosin 1 mg oral capsule) ??2 mg, By Mouth, Daily at bedtime Risperidone 0.25 mg Tablet (RisperDAL 0.25 mg oral tablet) ??0.25 mg, By Mouth, Daily in AM Risperidone 0.25 mg Tablet (RisperDAL 0.25 mg oral tablet) ??0.5 mg, By Mouth, Daily at bedtime Sertraline 50 mg Tablet (Zoloft 50 mg oral tablet) ??50 mg, By Mouth, Daily Trazodone 50 mg Tablet (traZODone 50 mg oral tablet) ??50 mg, By Mouth, Daily at bedtime CONTINUOUS: (0) PRN: (12) Acetaminophen 325 mg Tablet (Acetaminophen Tablet) ??650 mg, By Mouth, Every 4 hours Albuterol 0.083% Inhalation Solution (Albuterol 0.083% inhalation sobia) ??2.5 mg 3 mL, BAND Nebulizer, Every 4 hours Clonazepam 1 mg Tablet (clonazePAM 1 mg oral tablet) ??2 mg, By Mouth, 2 times a day Clonidine 0.1 mg Tablet (cloNIDine 0.1 mg oral tablet) ??0.1 mg, By Mouth, 3 times a day Dextromethorphan-Guaifenesin 20 mg-200 mg/10 mL Liqu UD (Robitussin DM Liquid) ??10 mL, By Mouth, Every 4 hours Lidocaine 5% Topical Patch (Lidocaine 5% Patch) ??1 each, Topically, Once NaCl 0.9% Flush 3ml (NaCL 0.9% Flush) ??3 mL, IV Push, Every 8 hours nalOXONE ??400mcg/mL Inj (nalOXONE Inj) ??0.2 mg 0.5 mL, IV Push, Every 5 minutes Polyethylene Glycol 17 Gm Powder (MiraLax Powder) ??17 Gm 1 pack/packet, By Mouth, Daily Promethazine 25 mg Tablet (promethazine 25 mg oral tablet) ??25 mg 1 each, By Mouth, 3 times a day Senna 8.6 mg / Docusate 50 mg tablet (Docusate/Senna Tablet) ??1 tablet, By Mouth, 2 times a day Simethicone 80 mg Chewable Tablet (Simethicone Tablet) ??80 mg, Chew, 3 times a day ? Results Recent Labs BLOOD COUNT & DIFF WBC 15.2 k/mm3 (High)?? 09/12/2022 00:36 RBC 3.90 m/mm3 (Low)?? 09/12/2022 00:36 Hgb 11.3 Gm/dL (Low)?? 09/12/2022 00:36 Hct 34.5 % (Low)?? 09/12/2022 00:36 MCV 88.5 femtoliters ()?? 09/12/2022 00:36 MCH 29.0 pg ()?? 09/12/2022 00:36 MCHC 32.8 g/dL (Low)?? 09/12/2022 00:36 Platelet Count 219 k/mm3 ()?? 09/12/2022 00:36 RDW-SD 42.6 femtoliters ()?? 09/12/2022 00:36 MPV 10.3 femtoliters ()?? 09/12/2022 00:36 Nucleated RBC (Automated) 0.0 #/100 WBC'S ()?? 09/12/2022 00:36 Abs. NRBC 0.0 k/mm3 ()?? 09/12/2022 00:36 ?? BLOOD GAS pH 7.33 (Low)?? 09/11/2022 08:05 pCO2 47 mm Hg (High)?? 09/11/2022 08:05 pO2 105 mm Hg (High)?? 09/11/2022 08:05 Bicarbonate, Estimated 24 mmol/L ()?? 09/11/2022 08:05 Specimen Type - Blood Gas ARTERIAL ()?? 09/11/2022 08:05 pH, Venous 7.29 (Low)?? 09/11/2022 05:18 Percent O2 (FIO2) 28 ()?? 09/11/2022 08:05 ?? CHEM GENERAL Sodium 138 mmol/L ()?? 09/12/2022 00:36 Potassium 5.1 mmol/L ()?? 09/12/2022 00:36 Chloride 103 mmol/L ()?? 09/12/2022 00:36 Bicarbonate Level 27 mmol/L ()?? 09/12/2022 00:36 Anion Gap 8 ()?? 09/12/2022 00:36 Glucose Level 152 mg/dL (High)?? 09/12/2022 00:36 BUN 15 mg/dL ()?? 09/12/2022 00:36 Creatinine-Blood 0.5 mg/dL ()?? 09/12/2022 00:36 Estimated GFR Creatinine 132 ML/MIN/1.73 M2 ()?? 09/12/2022 00:36 Calcium 9.6 mg/dL ()?? 09/12/2022 00:36 ? Abnormal Labs ?? BLOOD COUNT & DIFF ??Abs. NRBC ??0.0 k/mm3 () ??09/12/2022 00:36 ??Hct ??34.5 % (Low) ??09/12/2022 00:36 ??Hgb ??11.3 Gm/dL (Low) ??09/12/2022 00:36 ??MCHC ??32.8 g/dL (Low) ??09/12/2022 00:36 ??Nucleated RBC (Automated) ??0.0 #/100 WBC'S () ??09/12/2022 00:36 ??RBC ??3.90 m/mm3 (Low) ??09/12/2022 00:36 ??RDW-SD ??42.6 femtoliters () ??09/12/2022 00:36 ??WBC ??15.2 k/mm3 (High) ??09/12/2022 00:36 ? CHEM GENERAL ??Estimated GFR Creatinine ??132 ML/MIN/1.73 M2 () ??09/12/2022 00:36 ??Glucose Level ??152 mg/dL (High) ??09/12/2022 00:36 ? Note: Critical results are displayed in red. ? Assessment/Plan ?? Assessment:??27-year-old female??PMHx??severe??asthma??with multiple exacerbations requiring intubation,??anxiety,??recent RSV??infection??presenting with??increasing??SOB/WOB.?Admitted for management of likely asthma exacerbation. ?? Asthma exacerbation (J45.901):?? Pw worsening SOB/WOB??x several days??despite nebulizer treatments at home. Hx severe??asthma??with??previous hospitalizations??2 of which??have required intubation. Recently diagnosed with RSV, SOB since then. PEx Showing Diffuse wheezing??in bilateral upper and lower lobes. ABG:??pH 7.33, PCO2:??47, PO2:??105.?? No elevated WBCs. CXR with??no evidence of acute cardiopulmonary abnormality Low suspicion??for infection??or PE at this time. Presentation at this time most consistent with Asthma exacerbation. Improving, down to 2 l/min Plan:?? -downgrade to medical unit - Duoneb Q4h, Albuterol Neb PRN for SOB - Continue methylprednisolone 40 mg twice daily - Supplemental O2 PRN hypoxia, Incentive Spirometry.? Tachycardia: sinus based on tele no ekg in cis improving HR control mostly in 100s possibley also to do with duoneb nebulization plan: -stat ekg -continue telemonitor ? Leucocytosis: likely steroid induced unlikely infectious process as she is afebrile and??improving o2 sat ?? Anxiety (F41.9):??Patient with extensive history of anxiety.?? Received multiple doses of lorazepam??in ED.?? Continue home Klonopin, confirmed??with patient that she is taking this medication currently??with good effect. ?? Viral illness (B34.9):??Recent diagnosis of RSV.?? Afebrile,??continued SOB likely in the context ofasthma exacerbation.?? RSV??PCR negative/.?? Infection appears resolved.?? Continue to manage??SOB??in accordance with??asthma exacerbation??Tx plan. ?? Opioid Dependence:??Methadone??dose verified 40mg QD.??Continue prescribed medication. Methadone Clinic: [facility], ??[place] . Addiction medicine following, recommend decreasing to 35 mg on discharge. ?? 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 Quality Measures Diet:??Regular Diet Code Status:??Full Code DVT PPX:??SCDs OMN/ Dispo:??Asthma exacerbation, IV steroids, O2 requirement.? Anticipate tomorrow on oral steroids. Trinity Fong RN: PERFORM, SIGN, VERIFY Event Display: Progress Note Hospital Authored Date: [id number] Patient: JACIEL MONAE Age: 27 years Sex: Female : 1995 Associated Diagnoses: None Author: Hetal RICH, Trinity Findings Problem Related to Alteration in Respiratory Function (new) : Alteration in Respiratory Function/new 09/11/2022 21:00 EST Alteration in Resp Status Related to Asthma Goals & Outcomes, Respiratory Pt will maintain/resume baseline physical assessment, Pt will maintain adequate nutritional intake, Pt will maintain/resume normal fluid/electrolyte balance Interventions, Respiratory Assess for and report S&S of respiratory distress, Position for comfort & optimal oxygenation, Initiate pulmonary rehab nurse consult, Monitor sputum color & consistency. Report changes to MD, Teach/encourage use of incentive spirometer, Teach the proper use of inhalers, Teach Pt/caregiver Smoking cessation education, Teach purse lip breathing as needed for breathing retraining, Teach tripod positioning to promote air exchange BH Goals/Interventions, Respiratory Yes Respiratory, Problem Start 09/11/2022 10:59 Reviewed Plan with, Respiratory Patient Patient Progression, Respiratory Patient progressing according to plan . Evaluation Pt. remamins on IMC for continuous monitoring. She is a/ox4, VSS, afebrile c/o 5/10 pain that is relieved with scheduled gabapentin. ST at baseline on tele w/HR up to 120's while at rest. She remains on oxy mask at 2L w/02 sats at 97% and above. Inspiratory and exp. wheezing noted throughout shift, minimal productive cough with white sputum. abd is soft, round, non-tender, tolerating regular diet without issue. Currenlty resting comfortably without issue. . Note Mary Cyr RN: PERFORM Event Display: Discharge/Transfer Note Hospital Authored Date: [id number] Nursing Discharge Note Entered On: 09/12/2022 18:29 EST Performed On: 09/12/2022 18:28 EST by Mary Cyr RN Nursing Discharge Note 2 Discharge Time : 09/12/2022 6:15 EST Discharge Level of Care at Discharge : Home/Prison/Foster Care Patient Left Unit Via : Ambulatory Patient Accompanied Off Unit with : Responsible adult DC Instructions Provided & Signed by Pt : Yes Patient Understands D/C Instructions : Yes Patient Instructions Discharge Signed : Yes Did Pt have Specialty Bed or Wound Vac : No Mary Cyr RN - 09/12/2022 18:28 Jean Marie Dominguez MD: PERFORM Event Display: Discharge/Transfer Note Hospital Authored Date: [id number] Patient: ??JACIEL MONAE ? Age:??27 Years?Sex:??Female?:??1995?? 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 _ Discharge Medications Albuterol (albuterol 0.083% inhalation solution)?3?Milliliter?2.5?Milligram?BAND Nebulizer?4 times a day?as needed?Wheezing/Shortness of Breath?for 30?Days Albuterol (Albuterol (Eqv-ProAir HFA) 90 mcg/inh inhalation aerosol)?2?puff(s)?Inhalation?Every 6 hours?as needed?Wheezing/Shortness of Breath Budesonide-Formoterol (Symbicort 80mcg/4.5mcg Inhaler)?2?puff(s)?Inhalation?2 times a day?rinse mouth and throat after use Clonazepam (clonazePAM 2 mg oral tablet)?1?tab(s)?2?Milligram?By Mouth?2 times a day Clonidine (cloNIDine 0.1 mg oral tablet)?0.1?Milligram?1?tablet?By Mouth?3 times aday?as needed?Anxiety Cyclobenzaprine (cyclobenzaprine 5 mg oral tablet)?1.5?tab(s)?7.5?Milligram?By Mouth?3 times a day?as needed Doxepin (doxepin 10 mg oral capsule)?1?capsule?10?Milligram?By Mouth?Daily at bedtime Durable Medical Equipment (Aerochamber)?See Instructions?use with albuterol and symbicort inhalers Gabapentin (gabapentin 100 mg oral capsule)?400?Milligram?4?capsule?By Mouth?3 times a day Melatonin (Melatonin 10 mg oral tablet)?1?tab(s)?10?Milligram?By Mouth?Daily at bedtime nalOXONE (Narcan 4 mg/0.1 mL nasal spray)?See Instructions?4 mg Naris, Left Once for Omeprazole (omeprazole 40 mg oral enteric coated capsule)?1?capsule?40?Milligram?By Mouth?Daily PredniSONE (predniSONE 20 mg oral tablet)?See Instructions?2 tablet By Mouth Once tonight then2 tablet daily for 3 more days Trazodone (traZODone 50 mg oral tablet)?50?Milligram?1?tablet?By Mouth?Daily at bedtime?for 30?Days ? Medications Started symbicort, prednisone Allergies Allergies ?(Active and Proposed Allergies Only) Latex? (Severity: Unknown severity, Onset: Unknown) Adhesive Bandage? (Severity: Unknown, Onset: Unknown) ? PCP Follow-Up/Heads-Up follow up on asthma control Hospital Course ??27-year-old female??PMHx??severe??asthma??with multiple exacerbations requiring intubation,??anxiety,??recent RSV??infection??presenting with??increasing??SOB/WOB.?Chest x ray showed no acute abnormality. Admitted for management of asthma exacerbation needing supplemental oxygen via nasal canula.Manged with iv steroids and updraft nebulization with positive response. Now saturating well in RA at rest as well as in ambulation. SHe was seen by addiction medicine while in here and provided with resources for her opioid use disorder and other substance use. ?? Acute hypoxic respiratory failure Asthma exacerbation (J45.901):?? Pw worsening SOB/WOB??x several days??despite nebulizer treatments at home. Hx severe??asthma??with??previous hospitalizations??2 of which??have required intubation. Recently diagnosed with RSV, SOB since then. PEx Showing Diffuse wheezing??in bilateral upper and lower lobes. ABG:??pH 7.33, PCO2:??47, PO2:??105.?? No elevated WBCs. CXR with??no evidence of acute cardiopulmonary abnormality Low suspicion??for infection??or PE at this time. Presentation at this time most consistent with Asthma exacerbation. Improving, down to 2 l/min in AM and to room air this afternoon, maintains spo2 on ambulation per RNreport Plan:?? -Discharge on prednsione, albuterol nebulization --step up asthma t/t: add on symbicort inhaler ?? Sinus Tachycardia: ekg reviewed: sinus tachy improving HR control mostly in 100s possibly also to do with steroids and duoneb nebulization ?? Leucocytosis: likely steroid induced unlikely infectious process as she is afebrile and??improving o2 sat ?? Anxiety (F41.9):?? Patient with extensive history of anxiety.?? Received multiple doses of lorazepam??in ED.?? Continue home Klonopin, confirmed??with patient that she is taking this medication currently??with good effect. ?? Viral illness (B34.9):?? Recent diagnosis of RSV.?? Afebrile,??continued SOB likely in the context of asthma exacerbation.?? RSV??PCR negative/.?? Infection appears resolved.?? Continue to manage??SOB??in accordance with??asthma exacerbation??Tx plan. ?? Opioid Dependence:?? Methadone??dose verified 40mg QD.?? Continue prescribed medication. Methadone Clinic: [facility], ??[place] . Note of last dose provided. ?? Cocaine use??disorder in early remission marijuana use tobacco use addiction team following: input appreciated follow up with Objective Assessment and Plan ? Measurements?? Height: 165 cm (09/11/22) Weight: 71.4 kg (09/12/22) Dry Weight: 68 kg (09/11/22) Body Mass Index:??18.37 kg/m2??Low (09/11/22) ? Vital Signs?? Temperature: 98.2 DegF (09/12/22 14:00:00) Temperature Route: Oral (09/12/22 14:00:00) Pulse Rate:??102 bpm??High (09/12/22 14:00:00) Heart Rate Monitored:??119 bpm??High (09/11/22 18:00:00) Respiratory Rate: 16 br/min (09/12/22 14:11:00) Systolic Blood Pressure: 131 mm Hg (09/12/22 14:00:00) Diastolic Blood Pressure: 74 mm Hg (09/12/22 14:00:00) Blood pressure sites: Arm, left (09/12/22 14:00:00) Pulse Pressure: 57 mm Hg (09/12/22 14:00:00) Oxygen Saturation: 95 % (09/12/22 14:00:00) Liters per Minute: 2 L/min (09/12/22 08:00:00) Mode of Delivery (Oxygen): Room air (09/12/22 14:00:00) Early Warning Score: 3 (09/12/22 14:34:03) ? Pain Scores 1 - 10 Pain Scale Score: 4 (09:00) Pain relief acceptable: Yes (21:00) ? Intake/Output? 09/10 23:31 09/12 07:00 09/11 07:00 09/10 07:00 09/09 07:00 ?? 09/12 16:20 09/12 16:20 09/12 06:59 09/11 06:59 09/10 06:59 Intake ?640 ?0 ?540 ?100 ?0 Output ? 2024 ?300 ? 1725 ?0 ?0 Net Total ?-1385 ? -300 ?-1185 ?100 ?0 ? Mobility & Ambulation Level Mobility & Ambulation Level Activity Assistance: Standby assist (09/11/22) Activity Status ADL: Ambulating in room (09/11/22) ?? . Physical Exam Constitutional: Awake, alert and oriented x4. NAD. Lying comfortably in bed,on 2 l of o2 via nc HEENT: Normocephalic. Atraumatic. PERRLA, EOMI. Respiratory:??intrmittent end expiratory wheeze in all the auscultatory zones, no creps Cardiovascular: RRR. No murmurs, rubs or gallops. Capillary Refill Less than one second in BL??UE/ LE. 2+ radial and pedal pulses. Gastrointestinal: Abdomen soft, non-tender, non-distended. + bowel sounds. no organomegaly Neurologic: Smooth, coordinated, and spontaneous movement of extremities. MSK:??Equal 5 out of 5 strength in UEs and LE??BL Skin: No rashes or lesions. Extremities: No cyanosis or clubbing. No gross deformities. Normal range of motion. Psychiatric: anxious but pleasant Consultants none Pending Results Add On Lab Order ordered on 09/12/2022 Add On Lab Order ordered on 09/12/2022 Basic Metabolic Panel ordered on 09/13/2022 CBC ordered on 09/13/2022 COVID-19 (2019 Novel Coronavirus) PCR ordered on 09/12/2022 TSH ordered on 09/12/2022 Patient Education Titles Asthma (Adult)?? Acute Severe Asthma?? Patient Instructions maintain abstinence follow up with outpatient programs for addiction control you have been added on symbicort inhaler for asthma, rinse your mouth and throat after each use Post Discharge Care Diet: Regular Diet Code Status: ?? Full Resuscitation Discharge ?09/12/22 16:20:00 EST Home Health Face to Face ^HomeHealthFTF Results Discharge Labs BLOOD COUNT & DIFF WBC 15.2 k/mm3 (High)?? 09/12/2022 00:36 RBC 3.90 m/mm3 (Low)?? 09/12/2022 00:36 Hgb 11.3 Gm/dL (Low)?? 09/12/2022 00:36 Hct 34.5 % (Low)?? 09/12/2022 00:36 MCV 88.5 femtoliters ()?? 09/12/2022 00:36 MCH 29.0 pg ()?? 09/12/2022 00:36 MCHC 32.8 g/dL (Low)?? 09/12/2022 00:36 Platelet Count 219 k/mm3 ()?? 09/12/2022 00:36 RDW-SD 42.6 femtoliters ()?? 09/12/2022 00:36 MPV 10.3 femtoliters ()?? 09/12/2022 00:36 Nucleated RBC (Automated) 0.0 #/100 WBC'S ()?? 09/12/2022 00:36 Abs. NRBC 0.0 k/mm3 ()?? 09/12/2022 00:36 Abs. Neut 3.9 k/mm3 ()?? 09/10/2022 22:06 Abs. Lymph 2.6 k/mm3 ()?? 09/10/2022 22:06 Abs. [place] 0.6 k/mm3 ()?? 09/10/2022 22:06 Abs. Eo 0.7 k/mm3 (High)?? 09/10/2022 22:06 Abs. Baso 0.0 k/mm3 ()?? 09/10/2022 22:06 Neut % 49.5 % ()?? 09/10/2022 22:06 Lymph % 33.1 % ()?? 09/10/2022 22:06 [place] % 7.4 % ()?? 09/10/2022 22:06 Eos % 9.3 % (High)?? 09/10/2022 22:06 Baso % 0.4 % ()?? 09/10/2022 22:06 Hemoglobin (POC) POC Cartridge 10.5 Gm/dL (Low)?? 09/10/2022 23:15 Hematocrit (POC) POC Cartridge 31 % (Low)?? 09/10/2022 23:15 Imm Gran 0.3 % ()?? 09/10/2022 22:06 Abs. Imm Gran 0.0 k/mm3 ()?? 09/10/2022 22:06 ?? BLOOD GAS Lactate, (POC) POC Cartridge 1.0 mmol/L ()?? 09/10/2022 23:00 pH Venous (POC) POC Cartridge 7.35 ()?? 09/10/2022 23:15 pCO2 Venous (POC) POC Cartridge 40.6 mm Hg (Low)?? 09/10/2022 23:15 pO2 Venous (POC) POC Cartridge 106 mm Hg (High)?? 09/10/2022 23:15 Est Bicarbonate (POC) POC Cartridge 22.4 mmol/L ()?? 09/10/2022 23:15 % O2 Sat Venous (POC) POC Cartridge 98 ()?? 09/10/2022 23:15 Base Excess (POC) POC Cartridge NEGATIVE 3 ()?? 09/10/2022 23:15 pH 7.33 (Low)?? 09/11/2022 08:05 pCO2 47 mm Hg (High)?? 09/11/2022 08:05 pO2 105 mm Hg (High)?? 09/11/2022 08:05 Bicarbonate, Estimated 24 mmol/L ()?? 09/11/2022 08:05 Specimen Type - Blood Gas ARTERIAL ()?? 09/11/2022 08:05 pH, Venous 7.29 (Low)?? 09/11/2022 05:18 Percent O2 (FIO2) 28 ()?? 09/11/2022 08:05 ?? CHEM GENERAL Sodium 138 mmol/L ()?? 09/12/2022 00:36 Potassium 5.1 mmol/L ()?? 09/12/2022 00:36 Chloride 103 mmol/L ()?? 09/12/2022 00:36 Bicarbonate Level 27 mmol/L ()?? 09/12/2022 00:36 Anion Gap 8 ()?? 09/12/2022 00:36 Sodium (POC) POC Cartridge 142 mmol/L ()?? 09/10/2022 23:15 Potassium (POC) POC Cartridge 2.8 mmol/L (Critical)?? 09/10/2022 23:15 Glucose Level 152 mg/dL (High)?? 09/12/2022 00:36 Glucose (POC) POC Cartridge 155 (High)?? 09/10/2022 23:15 Glucose, POC 139 mg/dL (High)?? 09/10/2022 21:40 BUN 15 mg/dL ()?? 09/12/2022 00:36 Creatinine-Blood 0.5 mg/dL ()?? 09/12/2022 00:36 Estimated GFR Creatinine 132 ML/MIN/1.73 M2 ()?? 09/12/2022 00:36 Calcium 9.6 mg/dL ()?? 09/12/2022 00:36 Ionized Calcium (POC) POC Cartridge 0.95 mmol/L (Critical)?? 09/10/2022 23:15 ? ENDOCRINE/TUMOR MARKER Blood <1 mIU/mL ()?? 09/10/2022 22:06 ? HEME OTHER Hold Blue Top SPECIMEN DISCARDED AFTER 4 HOURS. ()?? 09/10/2022 22:06 ? TOXICOLOGY/TDM Opiate Screen, Urine POSITIVE (Abnormal)?? 09/12/2022 14:40 ? VIROLOGY Influenza A PCR NEGATIVE ()?? 09/10/2022 22:05 Influenza B PCR NEGATIVE ()?? 09/10/2022 22:05 RSV PCR NEGATIVE ()?? 09/10/2022 22:05 COVID-19 PCR Specimen Source NASAL ()?? 09/10/2022 22:05 COVID-19 PCR Result NEGATIVE ()?? 09/10/2022 22:05 ? Microbiology ?? COVID-19, RSV, and Flu A/B, Rapid PCR?? Completed?? Source: Nasal Body Site: Nose Collected Dt/Tm: 09/10/2022 21:43 Last Updated Dt/Tm: 09/10/2022 23:16 ? Imaging(s) ?Chest Portable ?? 09/10/2022 22:10??by Chaitanya Meyers MD ?hest Portable ?? Reason: Shortness of Breath; Clinical Question(s): CHF ?? COMPARISON: 03/04/2021 ?? FINDINGS: ?? LINES AND TUBES: None. ?? LUNGS AND PLEURA: Clear lungs. Normal pulmonary vascularity. No pleural effusion. No pneumothorax. ?? HEART, MEDIASTINUM AND YESICA: Heart is normal in size. Normal mediastinal and hilar contour. ?? BONES AND SOFT TISSUES: No acute abnormality. ? 40_ minutes spent on discharge Mary Cyr RN: PERFORM Event Display: Patient Education/Instruction Authored Date: [id number] Inpatient Adult Discharge Instructions [place] [id number] Name: JACIEL MONAE : 1995 Visit: 09/10/2022 23:31:00 Current Date: 09/12/2022 16:54 Account: [id number] Inpatient Adult Discharge Instructions We would like to thank you for allowing us to assist you with your healthcare needs. The following includes patient education materials and information regarding your injury/illness. Our entire staff strives to provide an excellent experience for our patients and their families. PLEASE ENSURE YOU FOLLOW-UP PER THE INSTRUCTIONS BELOW! ?? YOUR OPINION IS IMPORTANT TO US! Please complete the survey you may receive by mail or email. Your feedback will be used to make improvements to the healthcare experiences of our patients and their families. Surveys are administered by [employer] ?? If further treatment with your primary care physician or another doctor is recommended, it is important for you to keep the appointment. Call your primary care physician or return to the Emergency Department immediately if your condition worsens, fails to improve, or new symptoms develop. If you need to find a doctor, you can call [facility] for a referral at [phone] or toll free at [phone] or log in to [email or web address].. ?? You can view and manage your care through the patient portal or by using a health care jaz of your choosing. [employer] is a website that allows you to securely view your medical information including your hospital discharge summary, office visit summaries, medications and follow-up visits. You can also request appointments, renew medications, and request access to your medical information using a health care jaz of your choosing, or just ask a question. You can enroll at [email or web address] or register during your next office visit. You have been discharged from [facility], Patient Care Unit: SW5. If you have any questions regarding these instructions after you leave, please call us and we will be happy to assist you. [facility] Your Care Team Attending Physician Petr MACKEY, Jean Marie Consulting Providers Phong Deal MD Discharging Providers Petr MACKEY, Jean Marie Reason for Admission Progressively worsening difficulty breathing for a few days Your Diagnosis Asthma exacerbation Viral illness Anxiety Opioid use disorder Cocaine use disorder, severe, in early remission Tobacco use Marijuana use Respiratory failure with hypoxia Sinus tachycardia Tests Performed Below is a partial list of the tests performed during your hospitalization. You may have had other tests and procedures not included in this list. Please discuss all test results with your provider. ABG BASE EXCESS POC CARTRIDGE CALCIUM IONIZED POC CART CBC w/ Differential COVID-19, RSV, and Flu A/B, Rapid PCR GLUCOSE POC GLUCOSE POC CARTRIDGE HEMATOCRIT POC CARTRIDGE HEMOGLOBIN POC CARTRIDGE Hold Blue Top Tube LACTIC ACID POC CART pH Venous POTASSIUM POC CARTRIDGE Serum Quantitative SODIUM POC CARTRIDGE TSH Urine Opiate Screen VBG POC CARTRIDGE XR Chest Portable Primary Care Provider Not on Staff, PCP Advance Directive Health Care Proxy on File Yes - Health Care Proxy No qualifying data available. Discharge Vitals Temperature: 98.2 DegF Height: 165 cm Pulse Rate:??102 bpm??High Weight: 71.4 kg Respiratory Rate: 16 br/min Body Mass Index:??18.37 kg/m2??Low Systolic Blood Pressure: 131 mm Hg Body surface area: 1.51 Diastolic Blood Pressure: 74 mm Hg ?? Oxygen Saturation: 95 % ?? Studies Pending All tests and labs ordered during this hospital stay have been completed unless listed below. Pleasediscuss all pending results with your provider listed above in these instructions. ?? Add On Lab Order Basic Metabolic Panel CBC COVID-19 (2019 Novel Coronavirus) PCR What to do next Instructions From Your Doctor maintain abstinence follow up with outpatient programs for addiction control you have been added on symbicort inhaler for asthma, rinse your mouth and throat after each use Discharge Orders Diet:??Regular Diet Code Status:?? Full Resuscitation Discharge Medications JACIEL MONAE :1995 Visit Date:09/10/2022 Medications: Please continue your medications until treatment is completed or stopped by your provider. Medications not listed below should be discontinued. Discuss any questions related to medications with your provider. What How Much When Instructions Next Dose New Budesonide-Formoterol (Symbicort 80mcg/ 4.5mcg Inhaler) 2 puff(s) Inhalation Twice a day rinse mouth and throat after use ?? Pickup at [facility][id number] tomorrow morning Changed Albuterol (Albuterol (Eqv-ProAir HFA) 90 mcg/ inh inhalation aerosol) 2 puff(s) Inhalation Every 6 hours as needed for Wheezing/Shortness of Breath Pickup at [facility]1971 when ??needed Changed Albuterol (albuterol 0.083% inhalation solution) 3 Milliliter BAND Nebulizer 4 times a day as needed for Wheezing/Shortness of Breath Duration: 30 Days when needed Changed PredniSONE (predniSONE 20 mg oral tablet) See instructions 2 tablet By Mouth Once tonight then 2 tablet daily for 3 more days ?? Pickup at [facility]1971 tonight Unchanged Clonazepam (clonazePAM 2 mg oral tablet) 1 tab(s) Oral Twice a day tomorrow morning Unchanged Clonidine (cloNIDine 0.1 mg oral tablet) 1 tab(s) Oral 3 times a day as needed for Anxiety tonight Unchanged Cyclobenzaprine (cyclobenzaprine 5 mg oral tablet) 1.5 tab(s) Oral 3 times a day as needed ?? tonight Unchanged Doxepin (doxepin 10 mg oral capsule) 1 capsule Oral Daily at Bedtime tonight Unchanged Durable Medical Equipment (Aerochamber) See instructions use with albuterol and symbicort inhalers ?? Unchanged Gabapentin (gabapentin 100 mg oral capsule) 4 capsule Oral 3 times a day tonight Unchanged Melatonin (Melatonin 10 mg oral tablet) 1 tab(s) Oral Daily at Bedtime tonight Unchanged nalOXONE (Narcan 4 mg/ 0.1 mL nasal spray) See instructions 4 mg Naris, Left Once for ?? Unchanged Omeprazole (omeprazole 40 mg oral enteric coated capsule) 1 capsule Oral Daily Unchanged Trazodone (traZODone 50 mg oral tablet) 1 tab(s) Oral Daily at Bedtime Duration: 30 Days tonight Pharmacy Information [facility] #[id number]: [address], [place] [id number] [phone] ?? What How Much When Comments Stop Taking Buprenorphine-Naloxone (Suboxone 8 mg-2 mg sublingual film) 2 films Sublingual Daily dissolve under the tongue ?? TIM [id number] ?? Stop Taking Buprenorphine-Naloxone (Suboxone 8 mg-2 mg sublingual film) 1 Film Sublingual Twice a day dissolve under the tongue. 8 a and 4 pm ?? Stop Taking Fluticasone-Salmeterol (Advair Diskus 250 mcg-50 mcg inhalation powder) 1 inhalation Inhalation Twice a day Duration: 30 Days rinse mouth and throat after use ?? Stop Taking Naproxen (naproxen 250 mg oral tablet) 2 tab(s) Oral Twice a day Stop Taking Prazosin (prazosin 1 mg oral capsule) 1 capsule Oral Daily at Bedtime Duration: 30 Days For PTSD ?? Stop Taking Prazosin (prazosin 2 mg oral capsule) 1 capsule Oral Daily at Bedtime Stop Taking Risperidone 0.25 Milligram Oral Daily in the morning Stop Taking Risperidone (RisperDAL 0.5 mg oral tablet) 1 tab(s) Oral Daily at Bedtime Stop Taking Sertraline (Zoloft 50 mg oral tablet) 1 tab(s) Oral Daily Test Results Below is a partial list of the most recent Laboratory test results done prior to this discharge. You may have had other tests and procedures not included in this list. Please discuss all test results with your provider. ABG (09/11/2022) ???pH - 7.33???pCO2 - 47 mm Hg???pO2 - 105 mm Hg???Bicarbonate, Estimated - 24 mmol/L???Specimen Type - Blood Gas - ARTERIAL???Percent O2 (FIO2) - 28 BASE EXCESS POC CARTRIDGE (09/10/2022) ???Base Excess (POC) POC Cartridge - NEGATIVE 3 CALCIUM IONIZED POC CART (09/10/2022) ???Ionized Calcium (POC) POC Cartridge - 0.95 mmol/L CBC w/ Differential (09/10/2022) ???WBC - 7.9 k/mm3???RBC - 4.42 m/mm3???Hgb - 12.6 Gm/dL???Hct - 39.0 %???MCV - 88.2 femtoliters???MCH - 28.5 pg???MCHC - 32.3 g/dL???Platelet Count - 245 k/mm3???RDW-SD - 42.5 femtoliters???MPV - 10.2femtoliters???Nucleated RBC (Automated) - 0.0 #/100 WBC'S???Abs. NRBC - 0.0 k/mm3???Abs. Neut - 3.9 k /mm3???Abs. Lymph - 2.6 k/mm3???Abs. [place] - 0.6 k/mm3???Abs. Eo - 0.7 k/mm3???Abs. Baso - 0.0 k/mm3???Neut % - 49.5 %???Lymph % - 33.1 %???[place] % - 7.4 %???Eos % - 9.3 %???Baso % - 0.4 %???Imm Gran - 0.3 %???Abs. Imm Gran - 0.0 k/mm3 COVID-19, RSV, and Flu A/B, Rapid PCR (09/10/2022) ???Influenza A PCR - NEGATIVE???Influenza B PCR - NEGATIVE???RSV PCR - NEGATIVE???COVID-19 PCR Specimen Source - NASAL???COVID-19 PCR Result - NEGATIVE GLUCOSE POC (09/10/2022) ???Glucose, POC - 139 mg/dL GLUCOSE POC CARTRIDGE (09/10/2022) ???Glucose (POC) POC Cartridge - 155 HEMATOCRIT POC CARTRIDGE (09/10/2022) ???Hematocrit (POC) POC Cartridge - 31 % HEMOGLOBIN POC CARTRIDGE (09/10/2022) ???Hemoglobin (POC) POC Cartridge - 10.5 Gm/dL Hold Blue Top Tube (09/10/2022) ???Hold Blue Top - SPECIMEN DISCARDED AFTER 4 HOURS. LACTIC ACID POC CART (09/10/2022) ???Lactate, (POC) POC Cartridge - 1.0 mmol/L pH Venous (09/11/2022) ???pH, Venous - 7.29 POTASSIUM POC CARTRIDGE (09/10/2022) ???Potassium (POC) POC Cartridge - 2.8 mmol/L Serum Quantitative (09/10/2022) ? ?Blood - <1 mIU/mL SODIUM POC CARTRIDGE (09/10/2022) ???Sodium (POC) POC Cartridge - 142 mmol/L TSH (09/12/2022) ???TSH - 0.17 uIU/mL Urine Opiate Screen (09/12/2022) ???Opiate Screen, Urine - POSITIVE VBG POC CARTRIDGE (09/10/2022) ???pH Venous (POC) POC Cartridge - 7.35???pCO2 Venous (POC) POC Cartridge - 40.6 mm Hg???pO2 Venous (POC) POC Cartridge - 106 mm Hg???Est Bicarbonate (POC) POC Cartridge - 22.4 mmol/L???% O2 Sat Venous(POC) POC Cartridge - 98???Specimen Type - Blood Gas - VENOUS Allergies (NKA means No Known Allergies) Adhesive Bandage Latex Problems Active Problems??(8) Anxiety?? Asthma, persistent, severity to be determined?? Cervical lymphadenopathy?? Insomnia?? Polysubstance abuse?? PTSD (post-traumatic stress disorder)?? Substance use disorder?? Underweight?? Education Materials Below is the list of Educational Leaflet Providered with your Discharge Instructions. Asthma (Adult)?? Acute Severe Asthma?? Valuables and Belongings I fully understand and agree that [facility] accepts no responsibility for all my personal property including clothing, toilet articles, radios, jewelry, dentures, hearing aids, rings, money, or any other property that is in my possession or is brought to me after admission. I understand certain valuables may be placed in a hospital safe for a short period of time. I understand that the hospital is not liable for loss or damage due to accident, fire, or other natural occurrence while said property is in the safe. I accept full responsibility for any personal property that I keep with me, and will not hold the hospital responsible in case of loss or disappearance. I acknowledge that i have been encouraged to send valuables and belongings home. ?? Review of Valuable and Belonging List: With patient Date for Pt to Sign Valuables/Belongings: 09/11/22 05:50:00 ?? Other Discharge Information ? Pulmonary Rehab Status?? Pulmonary Rehab Discharge Status?? CPAP/BiPAP Mask Type: Full CPAP/BiPAP Mask Size: Medium Respiratory Rate: 16 br/min ? Common Emergency Awareness Tips IS IT A STROKE? Act FAST and Check for these signs: FACE Does the face look uneven? ARM Does one arm drift down? SPEECH Does their speech sound strange? TIME Call at any sign of stroke ?? Heart Attack Signs Chest discomfort: Most heart attacks involve discomfort in the center of the chest and lasts more than a few minutes, or goes away and comes back. It can feel like uncomfortable pressure, squeezing, fullness or pain. Discomfort in upper body: Symptoms can include pain or discomfort in one or both arms, back, neck, jaw or stomach. Shortness of breath: With or without discomfort. Other signs: Breaking out in a cold sweat, nausea, or lightheaded. Remember, MINUTES DO MATTER. If you experience any of these heart attack warning signs, call to get immediate medical attention! ?? Smoking can increase your chances of developing chronic health problems and can cause harmful effects to other family members in your house. If you smoke, you are strongly encouraged to quit. Please call [facility] at [phone] or [phone] ([phone]) or log in to [email or web address] for referrals to smoking cessation programs. ?? The National Suicide Prevention Hotline is available 17/03 if you or someone you know needs to find areason to keep living. By calling 9-603-704-Leosphere (1134) you'll be connected to a skilled, trained counselor at a crisis center in your area. INPATIENT DISCHARGE INSTRUCTIONS SIGNATURE JACIEL ROSAS Location:[facility] Registration Date and Time:09/10/2022 23:31 EST Primary Care Physician: Not on Staff, PCP JACIEL SESAY, have received the above patient education materials/instructions and have verbalized understanding. If ambulance or transport services are being used I further acknowledge being givena choice of service. ?? If you need to contact me, please call me at this number: . Patient/School Clerk Name: Patient/School Clerk Signature: Relationship to Patient: Witness Name/Signature: Date: Jean Marie Humphreys MD: PERFORM Event Display: Patient Education Leaflets Authored Date: [id number] Asthma (Adult) ?? [id number] Asthma (Adult) Asthma is a disease where the medium and??small air passages in the lung go into spasm and restrictair flow. Inflammation and swelling of the airways cause further blockage. During an acute asthma attack, these factors cause trouble breathing, wheezing, cough, and chest tightness. An asthma attack can be triggered by many things. Common triggers include infections such as the common cold, bronchitis, and pneumonia. Irritants such as smoke or pollutants in the air, very cold air, emotional upset, and exercise can also trigger an attack. In??many adults with asthma, allergies to??dust, mold, pollen, and animal dander can cause an asthma attack. Skipping doses of daily asthma medicine can also bring on an asthma attack. Asthma can be controlled using the??correct medicines prescribed by your healthcare provider and staying away from known triggers including allergens and irritants. Home care ??? Take prescribed medicine exactly at the times advised. If you need medicine such as from a handheld inhaler or aerosol breathing machine more than every 4 hours, contact your healthcare provider or get medical care right away. If you are prescribed an antibiotic or prednisone, take all of the medicine as prescribed. Keep taking it even if you are feeling better after a few days. ??? Don't smoke. Stay away from the smoke of others. ??? Some people with asthma find their symptoms get worse when they take aspirin and non- steroidal or fever-reducing medicines such as ibuprofen and naproxen. Talk with your healthcare provider if you think this may apply to you. ?? Follow-up care Follow up with your healthcare provider, or as advised. Always bring all of your current medicines to any appointments with your healthcare provider. Also bring a complete list of medicines, even??those not taken for asthma. If you don't already have one, talk with your healthcare provider about making your own Asthma Action Plan. A pneumonia (pneumococcal)??vaccine and yearly flu shot (every fall) are advised. Ask your providerabout this. ?? When to get medical advice Call your healthcare provider or get medical care right away if any of these occur:? More wheezing or shortness of breath ??? Need to use your inhalers more often than normal without relief ??? Fever of 100.4??F (38??C) or higher, or as directed by your provider ??? Coughing up lots of dark-colored or bloody sputum (mucus) ??? Chest pain with each breath ??? If you use a peak flow meter as partof an Asthma Action Plan, and you are still in the yellow zone (50% to 80%) 15 minutes after using inhaler medicine. ?? Call 911 Call 911 if any of these occur: ??? Trouble walking or talking because you are short of breath ??? If you use a peak flow meter as part of an Asthma Action Plan, and??you are still in the red zone (less than 50%) 15 minutes after using inhaler medicine ??? Lips or fingernails turn shrestha, purple, or blue ??? Feeling faint or loss of consciousness ?? Last Reviewed Date: 2019 ?? 4362-4816 [employer]. All rights reserved. This information is not intended as a substitute for professional medical care. Always follow your healthcare professional's instructions. ??Jean Marie Humphreys MD: PERFORM Event Display: Patient Education Leaflets Authored Date: [id number] Acute Severe Asthma ?? DM8 Acute Severe Asthma What is acute severe asthma? Acute severe asthma is a sudden severe asthma attack that doesn't get better after taking asthma medicine. This type of asthma is life-threatening. If you think someone is having a severe asthma attack, call 911 right away. The main treatment is done in the emergency room and the hospital. But early treatment done by first responders can save lives. ?? What causes acute severe asthma? Any person with asthma can have an acute severe flare-up. Causes can include: ??? Having an infection, such as a cold or sinus infection ??? Having a severe allergic reaction ??? Inhaling irritants ??? Not taking prescribed medicine ??? Exercising ?? Who is at risk for acute severe asthma? You may be at risk for acute severe asthma if you: ??? Have had a severe asthma attack in the past ??? Have trouble noticing when you are having asthma symptoms or how bad those symptoms are ??? Have asthma attacks even when using oral glucocorticoids??? Don???t take your asthma medicines as prescribed ??? Use illegal drugs ??? Have other health problems, such as depression, heart disease, or lung disease ?? What are the symptoms of acute severe asthma? The symptoms of acute severe flare-ups often happen over hours or days. But they can come on faster. They are: ??? Worsening trouble breathing and wheezing ??? Fast breathing ??? Worsening cough and chest tightness ??? Inability to breathe when laying down ??? Trouble walking and talking ??? Sweating ??? Fast heart rate ??? Confusion or irritability ?? How is acute severe asthma diagnosed? Acute severe asthma is life-threatening. So quick diagnosis is important. If you think you or someone you know is having a severe asthma attack, call 911. Healthcare providers will ask about your symptoms. They will give you a physical exam. You may need these tests: ??? Peak expiratory flow. This test can gauge lung function. ??? Pulse oximetry. This test measuresthe level of oxygen in your body. ??? Chest X-ray. This test may be done in severe cases. Or it may be done if your healthcare provider thinks you may have some other health problem. ?? How is acute severe asthma treated? Treatment for acute severe asthma is often done in a hospital. Your healthcare provider will focus on opening up your airways and helping you breathe easier. You may need: ??? Medicines. Your healthcare provider will give you medicines to ease your symptoms. These may beinhaled, swallowed, or given through an IV (intravenous) line. ??? Magnesium sulfate. This may be used if other medicines don???t work. It???s given through an IV. ??? Supplemental oxygen. This helps raise oxygen levels in your body. ??? Ventilator. If other treatments don???t work, you may be put on a machine to help you breathe. ?? What can I do to prevent severe acute asthma? To help prevent acute severe flare-ups, be sure to: ??? Know and stay away from those things that cause your flare-ups. ??? Try to stay away from people who are sick. ??? Wash your hands often. ??? Talk with your healthcare provider about vaccines you should get. ??? If you have severe allergies, go to an insole taper. ??? If you smoke, get help to quit.Stay away from secondhand and thirdhand smoke, too. ??? Take asthma medicines as directed. This includes your long-term control medicines.??It's important to take them even if you feel like your asthmais under control. ??? If exercise is a trigger, make sure you use your quick-relief medicine before you are active. Keep an inhaler in your purse, gym bag, or backpack. ??? Develop an Asthma Action Plan with your provider. Share the plan with your family members and close friends so they know when to call 911. ?? When should I call my healthcare provider? Call 911 right away if you are having an asthma attack and your symptoms don???t get better after you take your quick-relief or rescue medicines. ?? Albarran points about acute severe asthma ??? Acute severe asthma is a sudden severe asthma attack that doesn't get better after taking asthma medicine. ??? This type of asthma is life- threatening. Call 911 if you think you or someone you know is having a severe asthma attack. ??? Acute severe asthma can have various causes. These include an infection or an allergic reaction. ??? Treatment may include medicines and oxygen. ??? You can prevent acute severe asthma by knowing and staying away from what triggers your asthma. ??? An Asthma Action Plan can help you, your family, and friends know what treatments are needed and when to call 911. ?? Next steps Tips to help you get the most from a visit to your healthcare provider: ??? Know the reason for your visit and what you want to happen. ??? Before your visit, write down questions you want answered. ??? Bring someone with you to help you ask questions and remember what your provider tells you. ??? Atthe visit, write down the name of a new diagnosis, and any new medicines, treatments, or tests. Alsowrite down any new instructions your provider gives you. ??? Know why a new medicine or treatment isprescribed, and how it will help you. Also know what the side effects are. ??? Ask if your conditioncan be treated in other ways. ??? Know why a test or procedure is recommended and what the results could mean. ??? Know what to expect if you do not take the medicine or have the test or procedure. ???If you have a follow-up appointment, write down the date, time, and purpose for that visit. ??? Knowhow you can contact your provider if you have questions. ?? Last Reviewed Date: 2020 ?? [id number] [employer]. All rights reserved. This information is not intended as a substitute for professional medical care. Always follow your healthcare professional's instructions. ?? Portable XR Chest Views [facility] , CIS S: TRANSCRIBE Chaitanya Meyers MD: VERIFY Event Display: Result: Authored Date: [id number] Chest Portable Reason: Shortness of Breath; Clinical Question(s): CHF COMPARISON: 03/04/2021 FINDINGS: LINES AND TUBES: None. LUNGS AND PLEURA: Clear lungs. Normal pulmonary vascularity. No pleural effusion. No pneumothorax. HEART, MEDIASTINUM AND YESICA: Heart is normal in size. Normal mediastinal and hilar contour. BONES AND SOFT TISSUES: No acute abnormality. IMPRESSION: No evidence of acute cardiopulmonary pathology. WSN: [id number] Ordering Physician: Tanner Pandya Dictated By: Chaitanya Meyers MD Dictated Date/Time: 09/10/22 10:21 p Reviewed By: Chaitanya Meyers MD Signed By: Chaitanya Meyers MD Signed Date/Time: 09/10/22 10:21 pm Transcribed By: ARLINE Transcribed Date/Time: 09/10/22 10:21 pm Patient Care team information Care Team PersonnelName: Nuris RICH, Agnieszka Ingram Position: [facility] RN Member Role: Primary Care Nurse Name: Not on Staff, PCP Position: [facility] Physician (General Medicine) Member Role: PCP Name: Mary Cyr RN Position: S RN Member Role: Primary Care Nurse Name: *[facility], ED Attending Position: [facility] ED Attendings Patient Name: *[facility], Inpt Attending Position: [facility] ED Medicine MD Name: Lori Etienne RN Position: [facility] ED RN W/OE and Tasks Member Role: Patient Care Provider Name: Kasandra Conley Position: [facility] ED TA [facility] Member Role: Flipping Machine Operator Care Team Related PersonsName: LANIE POWERS Address: home [address], [place] Name: CARLTON POWERS Address: home [address] [place], [place] Name: GEORGINA POWERS Address: home [address], [place]
--- NOTE | 2022-09-25 12:52 | ECG_ITS ---
Test Reason : SYNCOPE Blood Pressure : / mmHG Vent. Rate : 095 BPM Atrial Rate : 095 BPM P-R Int : 162 ms QRS Dur : 080 ms QT Int : 360 ms P-R-T Axes : 054 013 058 degrees QTc Int : 452 ms Normal sinus rhythm Normal ECG When compared with ECG of 01-AUG-2022 18:34, Questionable change in QRS axis Referred By: Huyen Branch Electronically Signed By:Petar Louis
--- NOTE | 2022-09-25 12:54 | ED_ITS ---
HPI - General Adult General Chief complaint: Seizure <Huyen BranchDEREK - Last Filed: 09/25/22 18:08> Stated complaint: Poss heroin use, seizure, head strike per EMS <Huyen GarciaDEREK watters - Last Filed: 09/25/22 18:08> Time Seen by Provider: 09/25/22 12:10 <Huyen Nur DEREK Branch - Last Filed: 09/25/22 18:08> Source: patient <Huyen BranchDEREK - Last Filed: 09/25/22 18:08> Mode of arrival: ambulatory <Huyen BranchDEREK - Last Filed: 09/25/22 18:08> Limitations: no limitations <Huyen BranchDEREK - Last Filed: 09/25/22 18:08> History of Present Illness HPI narrative: Patient is a 27-year-old female who presents emergency department via EMS after a syncopal episode. Patient states that she was walking along some shop that had flashing lights, she states that she ?was not able to look away from them? and she began feeling anxious and then suddenly blacked out. The next thing that she recalls is waking up with bystanders and EMS personnel around her. Bystanders had reported seizure-like activity, though the history is unclear. Patient denies any history of seizure disorder, she states that she is prescribed clonazepam which she has been compliant with, her only history of seizure has been from benzo withdrawal in the past. She denies any ETOH usage , endorses using 2 bags of heroin earlier today., she reports compliance with methadone. She has a laceration to the back of her head, with no active bleeding, hard cervical spine collar is in place. At this time she is complaining of a posterior headache. She denies any preceding symptoms, has otherwise been feeling well. Denies fevers, chills, dizziness, lightheadedness, chest pain, shortness of breath, numbness tingling of the extremities, weakness. <Huyen GarciaDEREK watters - Last Filed: 09/25/22 18:08> Related Data Home medications: Home Medications Medication Instructions Recorded Confirmed methadone 10 mg/mL oral concentrate 120 mg PO DAILY 11/30/21 08/02/22 nebulizers 05/23/22 clonazepam 2 mg tablet 1 tab PO BID PRN Anxiety 08/01/22 08/01/22 clonidine HCl 0.1 mg tablet 1 tab PO BID PRN Anxiety 08/01/22 08/01/22 clonidine HCl 0.2 mg tablet 1 tab PO BEDTIME 08/01/22 08/01/22 gabapentin 800 mg tablet 1 tab PO TID 08/01/22 08/01/22 omeprazole 40 mg capsule,delayed 40 mg PO DAILY PRN GI UPSET 08/01/22 08/01/22 release Previous Rx's Medication Instructions Recorded prazosin 2 mg capsule 2 mg PO BEDTIME 30 days #30 caps 09/18/21 albuterol sulfate 2.5 mg/3 mL 2.5 mg (3 mL) inhalation TID 90 08/20/22 (0.083 %) solution for nebulization days #810 mL albuterol sulfate 90 mcg/actuation 2 puff inhalation QID PRN Dyspnea 08/20/22 aerosol inhaler (ProAir HFA) 30 days #8.5 grams fluticasone propionate 115 2 puff inhalation BID #12 grams 08/20/22 mcg-salmeterol 21 mcg/actuation HFA inhaler (Advair HFA) prednisone 20 mg tablet 40 mg PO DAILY #6 tabs 08/20/22 <Huyen Branch CNP - Last Filed: 09/25/22 18:08> Allergies/adverse reactions: Allergies Allergy/AdvReac Type Severity Reaction Status Date / Time latex [LATEX] Allergy Intermediate RASH Verified 06/21/22 21:10 adhesive tape [ADHESIVE TAPE] AdvReac Intermediate RASH Verified 06/21/22 21:10 <Huyen Branch CNP - Last Filed: 09/25/22 18:08> Review of Systems 2 Review of Systems: Constitutional: No fever. No chills. No weakness. No fatigue. Eye: No swelling. No redness. ENT: No sore throat. No rhinorrhea. No nasal congestion. No sore throat. No difficulty swallowing. Skin: No rash. No itching. Cardiovascular: No chest pain. No chest pressure. No palpitations. No pedal edema. Respiratory: No shortness of breath. No cough. No sputum production. Gastrointestinal: No anorexia. No nausea. No vomiting. No diarrhea. No abdominal pain. No blood in stool. Genitourinary: No burning micturition. No urinary frequency. No incontinence. Neurologic: Positive headache. No dizziness. Positive syncope. No unilateral weakness. No ataxia. No numbness. No tingling. No change in bowel or bladder control. Musculoskeletal: No muscle pain. No back pain. No joint pain. No stiffness. Hematologic: No bleeding. No bruising. Lymphatics: No enlarged lymph nodes. Psychiatric:No depression. No anxiety. Endocrine: No reports of sweating. No cold or heat intolerance. No polyuria. No polydipsia. <Huyen Branch CNP - Last Filed: 09/25/22 18:08> Yes all other systems are reviewed and are negative <Huyen Branch CNP - Last Filed: 09/25/22 18:08> [facility] Past Medical History Attestation statement: The following information was validated with the patient. <Huyen Branch CNP - Last Filed: 09/25/22 18:08> Source: old records reviewed <Huyen Branch CNP - Last Filed: 09/25/22 18:08> Medical History: Medical History Anxiety Asthma Asthma Asthma Bipolar disorder COVID-19 Crohn's disease Depression GERD (gastroesophageal reflux disease) Opioid use disorder Pneumonia due to COVID-19 virus Pneumonitis PTSD (post-traumatic stress disorder) <Huyen Branch CNP - Last Filed: 09/25/22 18:08> Family History Family History: Family History Father Colon cancer Mother No problems noted. Brother Autism Sister Bipolar disorder Maternal Aunt Breast cancer <Huyen Branch CNP - Last Filed: 09/25/22 18:08> Social History Social History: Social History Household Members: Significant Other Housing: Other Housing Other:: motel Do you presently have visiting nurse or other home services: No Alcohol intake: unknown Patient Tobacco Use Status: Former Tobacco user Cigarette Packs Per Day: 0.33 Cigarettes Per Day: 6.6 Years Smoked: 9 e-Cigarette/Vaping Use: Former Use Second Hand Smoke Exposure: Yes Substance Use Type: Heroin Advance Directives: Yes Advance Directives on File: Yes Advance Directives Date on File: 05/07/21 service: No Current occupational status: unemployed Cognitive needs: No Hearing needs: No Vision needs: No <Huyen Nur DEREK Branch - Last Filed: 09/25/22 18:08> Physical Exam ED Vital Signs: Vital Signs - 24 hr 09/25/22 12:06 Temperature 98 F Pulse Rate 114 H Respiratory Rate 19 Blood Pressure 131/88 Pulse Oximetry 98 Oxygen Delivery Method Room Air BMI result Body Mass Index 23.3 <Huyen Nur DEREK Branch - Last Filed: 09/25/22 18:08> Vital Signs - 24 hr 09/25/22 12:06 Temperature 98 F Pulse Rate 114 H Respiratory Rate 19 Blood Pressure 131/88 Pulse Oximetry 98 Oxygen Delivery Method Room Air BMI result Body Mass Index 23.3 <LISA Juares - Last Filed: 09/25/22 20:55> Appearance: Alert.?Oriented to person, place and time. No acute distress.?Normal affect. Head: Normocephalic. Laceration/abrasion to the right occiput. Eyes: Pupils equal, round and reactive to light.? EOMI. No nystagmus. No raccoon eyes. ENT: Pharynx normal.? TM normal bilaterally. No Wilson sign. ? Neck: Normal inspection.? Neck supple.??No midline cervical spine tenderness, step-offs, deformities. CVS: Heart sounds normal. Normal heart rate and rhythm.? Pulses normal.?? Respiratory: No respiratory distress.? Lung sounds clear to auscultation bilaterally?? Abdomen: Soft and non-tender. Normoactive bowel sounds. Skin: Skin warm and dry.? Normal skin color.? Extremities: No lower extremity edema.? Neuro: Moves all extremities spontaneously. Sensation intact bilaterally. CN II- XII intact. No focal neuro deficits. Ambulates with normal steady gait. <Huyen Nur DEREK Branch - Last Filed: 09/25/22 18:08> Course Reevaluation(s) Reevaluation #1: CBC reveals no leukocytosis or anemia. CMP is overall unremarkable. Troponin <3.5, EKG reveals normal sinus rhythm without any acute ischemic findings, do not suspect ACS as a cause for syncopal episode. Urinalysis without evidence of infection, urine negative. Drug screen positive for opiates, fentanyl, benzodiazepine, cocaine, marijuana, alcohol level nondetectable. CT of the head and cervical spine remain pending at this time. she remains tachycardic, will obtain D-dimer to exclude pulmonary embolism as cause for syncopal episode. 1 cm laceration to the posterior scalp closed with 2 jamil, patient tolerated procedure well. Reviewed this case with ED attending Dr. Singh, who agrees with plan of care <Huyen Branch CNP - Last Filed: 09/25/22 18:08> Time: 14:43 <Huyen Branch CNP - Last Filed: 09/25/22 18:08> Reevaluation #2: Patient has remained conscious alert and oriented the entire time while in the emergency department. D-dimer and lactic acid are pending at this time. If lactic acid is not elevated and is normal, lower suspicion that this was a true seizure despite report from bystanders, 50-dimer is not elevated unlikely pulmonary embolism to be a cause for this episode. Additional etiologies such as anxiety, poly substance usage are also possible. Upon review of [facility], she has not been prescribed benzodiazepines since earlier in 2021, she did test positive in her toxicology for diazepam in, it is possible that she may be obtaining these illegally. However, at this time she does not have any symptoms concerning for benzodiazepine withdrawal. Patient signed out to Alysia Sanders pending labs. If lactic acid and D-dimer are unremarkable, patient can be cleared for discharge. <Huyen Branch CNP - Last Filed: 09/25/22 18:08> Time: 17:51 <Huyen Branch CNP - Last Filed: 09/25/22 18:08> Reevaluation #3: Negative lactic acid negative D-dimer. Patient does not want detox. Patient requesting to go home. Educated patient on diagnosis and treatment plan, answered all question, patient verbalizes understanding. At this time patient will be discharged home, advised to return with new or worsening symptoms. Educated on worrisome signs and symptoms and when to return. At this time I feel comfortable discharge home. <LISA Juares - Last Filed: 09/25/22 20:55> Time: 20:25 <LISA Juares - Last Filed: 09/25/22 20:55> Medications Administered Discontinued Medications Generic Name Dose Route Start Last Admin Trade Name Freq PRN Reason Stop Dose Admin Acetaminophen 975 mg 09/25/22 14:01 09/25/22 15:18 Acetaminophen 325 Mg Tablet PO 09/25/22 14:02 975 mg ONCE ONE Administration Acetaminophen 975 mg 09/25/22 15:13 09/25/22 15:27 Acetaminophen 325 Mg Tablet PO 09/25/22 15:14 Not Given ONCE ONE <Huyen Branch CNP - Last Filed: 09/25/22 18:08> Medications Administered Discontinued Medications Generic Name Dose Route Start Last Admin Trade Name Freq PRN Reason Stop Dose Admin Acetaminophen 975 mg 09/25/22 14:01 09/25/22 15:18 Acetaminophen 325 Mg Tablet PO 09/25/22 14:02 975 mg ONCE ONE Administration Acetaminophen 975 mg 09/25/22 15:13 09/25/22 15:27 Acetaminophen 325 Mg Tablet PO 09/25/22 15:14 Not Given ONCE ONE <LISA Juares - Last Filed: 09/25/22 20:55> Procedures Laceration Laceration 1: Site: scalp <Huyen Branch CNP - Last Filed: 09/25/22 18:08> Side (If applicable): right <Huyen Branch CNP - Last Filed: 09/25/22 18:08> Size (cm): 1 <Huyen Branch CNP - Last Filed: 09/25/22 18:08> Description: linear <Huyen Branch CNP - Last Filed: 09/25/22 18:08> Depth: simple, single layer <Huyen Branch CNP - Last Filed: 09/25/22 18:08> Pre-repair: irrigated extensively and deep structures intact <Huyen Branch CNP - Last Filed: 09/25/22 18:08> Technique: other (Two jamil) <Huyen Branch CNP - Last Filed: 09/25/22 18:08> Medical Decision Making Medical Decision Making [facility] Narrative: Patient is a 27-year-old female with past medical history of anxiety, asthma, bipolar disorder, Crohn's, depression, GERD, opioid use disorder on methadone presenting to emergency department for evaluation after a syncopal episode.Will obtain CBC to evaluate for leukocytosis/ anemia, CMP and lipase to evaluate for abnormal electrolytes /abnormal renal function/ abnormal hepatic/biliary function, EKG and troponin to evaluate for ischemia/ACS. CT of the head and cervical spine to exclude ICH/SAH/SDH, fracture/dislocation, and Urinalysis. <Huyen Branch CNP - Last Filed: 09/25/22 18:08> Differential Diagnosis Differential Diagnoses: The differential diagnosis associated with the presentation includes (Sy ncope, pulmonary embolism, seizure, polysubstance use, ACS) <Huyen Branch CNP - Last Filed: 09/25/22 18:08> Admission/Observation Consideration of admission/observation: Escalation of care including admission/observation considered <Huyen Branch CNP - Last Filed: 09/25/22 18:08> Lab Data [facility] Lab Attestation statement: I reviewed the patient's lab results. <Huyen Branch CNP - Last Filed: 09/25/22 18:08> Result Diagrams: 09/25/22 13:21 09/25/22 13:21 <Huyen Branch CNP - Last Filed: 09/25/22 18:08> Labs: Lab Results 09/25/22 09/25/22 09/25/22 Range/Units 13:21 13:21 13:21 WBC 8.9 (4.8-10.8) X10*3/uL RBC 5.11 D (4.20-5.50) X10*6/uL Hgb 14.1 D (12.0-16.0) g/dl Hct 42.1 D (37.0-47.0) % MCV 82.4 (80.0-98.0) fL MCH 27.6 (27.0-33.0) pg MCHC 33.5 (31.0-35.0) g/dl RDW 13.2 (11.0-16.0) % Plt Count 332 D (160-400) X10*3/uL MPV 9.3 L (9.4-12.3) fL Immature Gran % (Auto) 0.5 H (0.0-0.4) % Neut % (Auto) 78.1 H (45-73) % Lymph % (Auto) 14.0 L (20-40) % Leon % (Auto) 5.5 (2-11) % Eos % (Auto) 1.6 (0-4) % Baso % (Auto) 0.3 (0-2) % Lymph # (Auto) 1.2 (1.2-4.9) X10*3/uL Leon # (Auto) 0.5 (0.1-1.2) X10*3/uL Eos # (Auto) 0.1 (0.0-0.4) X10*3/uL Baso # (Auto) 0.0 (0.0-0.2) X10*3/uL Abs Immat Gran (auto) 0.04 H (0.00-0.03) X10*3/uL Absolute Neuts (auto) 6.9 (2.0-8.3) x10*3/uL Absolute Nucleated RBC 0.000 (0.0-0.012) X10*3/uL Nucleated RBC % (auto) 0.0 (0.0-0.2) /100WBC D-Dimer High Sensitivty NG/ML Sodium 137 (135-145) mmol/L Potassium 3.9 (3.3-5.1) mmol/L Chloride 97 (96-108) mmol/L Carbon Dioxide 30 H (22-29) mmol/L Anion Gap 14 (12-20) BUN 14 (9-16) mg/dL Creatinine 0.75 (0.5-1.4) mg/dL Estim Creat Clear Calc 103.1 Estimated GFR > 60 Random Glucose 104 (60-115) mg/dL Lactic Acid (0.5-2.0) mmol/L Calcium 10.0 (8.4-10.2) mg/dL Magnesium 2.1 (1.6-2.6) mg/dL Total Bilirubin 0.4 (0.0-1.0) mg/dL AST 21 (5-31) U/L ALT 30 (0-31) U/L Alkaline Phosphatase 88 (39-117) U/L Troponin I High Sens (<3.5-17.0) ng/L Total Protein 7.7 (6.5-8.0) g/dL Albumin 4.6 (3.5-5.0) g/dL Urine Color Urine Appearance Urine pH (5.0-9.0) Ur Specific [place] (1.005-1.025) Urine Protein (Neg-Trace) mg/dL Urine Glucose (UA) (Negative) mg/dL Urine Ketones (Negative) mg/dL Urine Blood (Negative) Urine Nitrite (Negative) Ur Leukocyte Esterase (Negative) Urine Opiates Screen (Not Detect) Urine Fentanyl Screen (Not Detect) Ur Barbiturates Screen (Not Detect) Ur Phencyclidine Scrn (Not Detect) Ur Amphetamines Screen (Not Detect) U Benzodiazepines Scrn (Not Detect) Urine Cocaine Screen (Not Detect) U Marijuana (THC) Screen (Not Detect) Ethyl Alcohol < 10 mg/dL COVID-19 (DAVID) Negative (Negative) COVID-19 Clin Com See Note Influenza Type A (TYSON) (Negative) Influenza Type B (TYSON) (Negative) Influenza A & B Note 09/25/22 09/25/22 09/25/22 Range/Units 13:21 13:21 13:21 WBC (4.8-10.8) X10*3/uL RBC (4.20-5.50) X10*6/uL Hgb (12.0-16.0) g/dl Hct (37.0-47.0) % MCV (80.0-98.0) fL MCH (27.0-33.0) pg MCHC (31.0-35.0) g/dl RDW (11.0-16.0) % Plt Count (160-400) X10*3/uL MPV (9.4-12.3) fL Immature Gran % (Auto) (0.0-0.4) % Neut % (Auto) (45-73) % Lymph % (Auto) (20-40) % Leon % (Auto) (2-11) % Eos % (Auto) (0-4) % Baso % (Auto) (0-2) % Lymph # (Auto) (1.2-4.9) X10*3/uL Leon # (Auto) (0.1-1.2) X10*3/uL Eos # (Auto) (0.0-0.4) X10*3/uL Baso # (Auto) (0.0-0.2) X10*3/uL Abs Immat Gran (auto) (0.00-0.03) X10*3/uL Absolute Neuts (auto) (2.0-8.3) x10*3/uL Absolute Nucleated RBC (0.0-0.012) X10*3/uL Nucleated RBC % (auto) (0.0-0.2) /100WBC D-Dimer High Sensitivty NG/ML Sodium (135-145) mmol/L Potassium (3.3-5.1) mmol/L Chloride (96-108) mmol/L Carbon Dioxide (22-29) mmol/L Anion Gap (12-20) BUN (9-16) mg/dL Creatinine (0.5-1.4) mg/dL Estim Creat Clear Calc Estimated GFR Random Glucose (60-115) mg/dL Lactic Acid (0.5-2.0) mmol/L Calcium (8.4-10.2) mg/dL Magnesium (1.6-2.6) mg/dL Total Bilirubin (0.0-1.0) mg/dL AST (5-31) U/L ALT (0-31) U/L Alkaline Phosphatase (39-117) U/L Troponin I High Sens < 3.5 (<3.5-17.0) ng/L Total Protein (6.5-8.0) g/dL Albumin (3.5-5.0) g/dL Urine Color Yellow Urine Appearance Clear Urine pH 7.0 (5.0-9.0) Ur Specific [place] 1.025 (1.005-1.025) Urine Protein Negative (Neg-Trace) mg/dL Urine Glucose (UA) Negative (Negative) mg/dL Urine Ketones Negative (Negative) mg/dL Urine Blood Negative (Negative) Urine Nitrite Negative (Negative) Ur Leukocyte Esterase Negative (Negative) Urine Opiates Screen (Not Detect) Urine Fentanyl Screen (Not Detect) Ur Barbiturates Screen (Not Detect) Ur Phencyclidine Scrn (Not Detect) Ur Amphetamines Screen (Not Detect) U Benzodiazepines Scrn (Not Detect) Urine Cocaine Screen (Not Detect) U Marijuana (THC) Screen (Not Detect) Ethyl Alcohol mg/dL COVID-19 (DAVID) (Negative) COVID-19 Clin Com Influenza Type A (TYSON) Negative (Negative) Influenza Type B (TYSON) Negative (Negative) Influenza A & B Note See Note 09/25/22 09/25/22 09/25/22 Range/Units 13:21 18:38 18:38 WBC (4.8-10.8) X10*3/uL RBC (4.20-5.50) X10*6/uL Hgb (12.0-16.0) g/dl Hct (37.0-47.0) % MCV (80.0-98.0) fL MCH (27.0-33.0) pg MCHC (31.0-35.0) g/dl RDW (11.0-16.0) % Plt Count (160-400) X10*3/uL MPV (9.4-12.3) fL Immature Gran % (Auto) (0.0-0.4) % Neut % (Auto) (45-73) % Lymph % (Auto) (20-40) % Leon % (Auto) (2-11) % Eos % (Auto) (0-4) % Baso % (Auto) (0-2) % Lymph # (Auto) (1.2-4.9) X10*3/uL Leon # (Auto) (0.1-1.2) X10*3/uL Eos # (Auto) (0.0-0.4) X10*3/uL Baso # (Auto) (0.0-0.2) X10*3/uL Abs Immat Gran (auto) (0.00-0.03) X10*3/uL Absolute Neuts (auto) (2.0-8.3) x10*3/uL Absolute Nucleated RBC (0.0-0.012) X10*3/uL Nucleated RBC % (auto) (0.0-0.2) /100WBC D-Dimer High Sensitivty 185 NG/ML Sodium (135-145) mmol/L Potassium (3.3-5.1) mmol/L Chloride (96-108) mmol/L Carbon Dioxide (22-29) mmol/L Anion Gap (12-20) BUN (9-16) mg/dL Creatinine (0.5-1.4) mg/dL Estim Creat Clear Calc Estimated GFR Random Glucose (60-115) mg/dL Lactic Acid 0.9 (0.5-2.0) mmol/L Calcium (8.4-10.2) mg/dL Magnesium (1.6-2.6) mg/dL Total Bilirubin (0.0-1.0) mg/dL AST (5-31) U/L ALT (0-31) U/L Alkaline Phosphatase (39-117) U/L Troponin I High Sens (<3.5-17.0) ng/L Total Protein (6.5-8.0) g/dL Albumin (3.5-5.0) g/dL Urine Color Urine Appearance Urine pH (5.0-9.0) Ur Specific [place] (1.005-1.025) Urine Protein (Neg-Trace) mg/dL Urine Glucose (UA) (Negative) mg/dL Urine Ketones (Negative) mg/dL Urine Blood (Negative) Urine Nitrite (Negative) Ur Leukocyte Esterase (Negative) Urine Opiates Screen POSITIVE H (Not Detect) Urine Fentanyl Screen POSITIVE H (Not Detect) Ur Barbiturates Screen Not Detected (Not Detect) Ur Phencyclidine Scrn Not Detected (Not Detect) Ur Amphetamines Screen Not Detected (Not Detect) U Benzodiazepines Scrn POSITIVE H (Not Detect) Urine Cocaine Screen POSITIVE H (Not Detect) U Marijuana (THC) Screen POSITIVE H (Not Detect) Ethyl Alcohol mg/dL COVID-19 (DAVID) (Negative) COVID-19 Clin Com Influenza Type A (TYSON) (Negative) Influenza Type B (TYSON) (Negative) Influenza A & B Note <Huyen Branch CNP - Last Filed: 09/25/22 18:08> Lab Results 09/25/22 09/25/22 09/25/22 Range/Units 13:21 13:21 13:21 WBC 8.9 (4.8-10.8) X10*3/uL RBC 5.11 D (4.20-5.50) X10*6/uL Hgb 14.1 D (12.0-16.0) g/dl Hct 42.1 D (37.0-47.0) % MCV 82.4 (80.0-98.0) fL MCH 27.6 (27.0-33.0) pg MCHC 33.5 (31.0-35.0) g/dl RDW 13.2 (11.0-16.0) % Plt Count 332 D (160-400) X10*3/uL MPV 9.3 L (9.4-12.3) fL Immature Gran % (Auto) 0.5 H (0.0-0.4) % Neut % (Auto) 78.1 H (45-73) % Lymph % (Auto) 14.0 L (20-40) % Leon % (Auto) 5.5 (2-11) % Eos % (Auto) 1.6 (0-4) % Baso % (Auto) 0.3 (0-2) % Lymph # (Auto) 1.2 (1.2-4.9) X10*3/uL Leon # (Auto) 0.5 (0.1-1.2) X10*3/uL Eos # (Auto) 0.1 (0.0-0.4) X10*3/uL Baso # (Auto) 0.0 (0.0-0.2) X10*3/uL Abs Immat Gran (auto) 0.04 H (0.00-0.03) X10*3/uL Absolute Neuts (auto) 6.9 (2.0-8.3) x10*3/uL Absolute Nucleated RBC 0.000 (0.0-0.012) X10*3/uL Nucleated RBC % (auto) 0.0 (0.0-0.2) /100WBC D-Dimer High Sensitivty NG/ML Sodium 137 (135-145) mmol/L Potassium 3.9 (3.3-5.1) mmol/L Chloride 97 (96-108) mmol/L Carbon Dioxide 30 H (22-29) mmol/L Anion Gap 14 (12-20) BUN 14 (9-16) mg/dL Creatinine 0.75 (0.5-1.4) mg/dL Estim Creat Clear Calc 103.1 Estimated GFR > 60 Random Glucose 104 (60-115) mg/dL Lactic Acid (0.5-2.0) mmol/L Calcium 10.0 (8.4-10.2) mg/dL Magnesium 2.1 (1.6-2.6) mg/dL Total Bilirubin 0.4 (0.0-1.0) mg/dL AST 21 (5-31) U/L ALT 30 (0-31) U/L Alkaline Phosphatase 88 (39-117) U/L Troponin I High Sens (<3.5-17.0) ng/L Total Protein 7.7 (6.5-8.0) g/dL Albumin 4.6 (3.5-5.0) g/dL Urine Color Urine Appearance Urine pH (5.0-9.0) Ur Specific [place] (1.005-1.025) Urine Protein (Neg-Trace) mg/dL Urine Glucose (UA) (Negative) mg/dL Urine Ketones (Negative) mg/dL Urine Blood (Negative) Urine Nitrite (Negative) Ur Leukocyte Esterase (Negative) Urine Opiates Screen (Not Detect) Urine Fentanyl Screen (Not Detect) Ur Barbiturates Screen (Not Detect) Ur Phencyclidine Scrn (Not Detect) Ur Amphetamines Screen (Not Detect) U Benzodiazepines Scrn (Not Detect) Urine Cocaine Screen (Not Detect) U Marijuana (THC) Screen (Not Detect) Ethyl Alcohol < 10 mg/dL COVID-19 (DAVID) Negative (Negative) COVID-19 Clin Com See Note Influenza Type A (TYSON) (Negative) Influenza Type B (TYSON) (Negative) Influenza A & B Note 09/25/22 09/25/22 09/25/22 Range/Units 13:21 13:21 13:21 WBC (4.8-10.8) X10*3/uL RBC (4.20-5.50) X10*6/uL Hgb (12.0-16.0) g/dl Hct (37.0-47.0) % MCV (80.0-98.0) fL MCH (27.0-33.0) pg MCHC (31.0-35.0) g/dl RDW (11.0-16.0) % Plt Count (160-400) X10*3/uL MPV (9.4-12.3) fL Immature Gran % (Auto) (0.0-0.4) % Neut % (Auto) (45-73) % Lymph % (Auto) (20-40) % Leon % (Auto) (2-11) % Eos % (Auto) (0-4) % Baso % (Auto) (0-2) % Lymph # (Auto) (1.2-4.9) X10*3/uL Leon # (Auto) (0.1-1.2) X10*3/uL Eos # (Auto) (0.0-0.4) X10*3/uL Baso # (Auto) (0.0-0.2) X10*3/uL Abs Immat Gran (auto) (0.00-0.03) X10*3/uL Absolute Neuts (auto) (2.0-8.3) x10*3/uL Absolute Nucleated RBC (0.0-0.012) X10*3/uL Nucleated RBC % (auto) (0.0-0.2) /100WBC D-Dimer High Sensitivty NG/ML Sodium (135-145) mmol/L Potassium (3.3-5.1) mmol/L Chloride (96-108) mmol/L Carbon Dioxide (22-29) mmol/L Anion Gap (12-20) BUN (9-16) mg/dL Creatinine (0.5-1.4) mg/dL Estim Creat Clear Calc Estimated GFR Random Glucose (60-115) mg/dL Lactic Acid (0.5-2.0) mmol/L Calcium (8.4-10.2) mg/dL Magnesium (1.6-2.6) mg/dL Total Bilirubin (0.0-1.0) mg/dL AST (5-31) U/L ALT (0-31) U/L Alkaline Phosphatase (39-117) U/L Troponin I High Sens < 3.5 (<3.5-17.0) ng/L Total Protein (6.5-8.0) g/dL Albumin (3.5-5.0) g/dL Urine Color Yellow Urine Appearance Clear Urine pH 7.0 (5.0-9.0) Ur Specific [place] 1.025 (1.005-1.025) Urine Protein Negative (Neg-Trace) mg/dL Urine Glucose (UA) Negative (Negative) mg/dL Urine Ketones Negative (Negative) mg/dL Urine Blood Negative (Negative) Urine Nitrite Negative (Negative) Ur Leukocyte Esterase Negative (Negative) Urine Opiates Screen (Not Detect) Urine Fentanyl Screen (Not Detect) Ur Barbiturates Screen (Not Detect) Ur Phencyclidine Scrn (Not Detect) Ur Amphetamines Screen (Not Detect) U Benzodiazepines Scrn (Not Detect) Urine Cocaine Screen (Not Detect) U Marijuana (THC) Screen (Not Detect) Ethyl Alcohol mg/dL COVID-19 (DAVID) (Negative) COVID-19 Clin Com Influenza Type A (TYSON) Negative (Negative) Influenza Type B (TYSON) Negative (Negative) Influenza A & B Note See Note 09/25/22 09/25/22 09/25/22 Range/Units 13:21 18:38 18:38 WBC (4.8-10.8) X10*3/uL RBC (4.20-5.50) X10*6/uL Hgb (12.0-16.0) g/dl Hct (37.0-47.0) % MCV (80.0-98.0) fL MCH (27.0-33.0) pg MCHC (31.0-35.0) g/dl RDW (11.0-16.0) % Plt Count (160-400) X10*3/uL MPV (9.4-12.3) fL Immature Gran % (Auto) (0.0-0.4) % Neut % (Auto) (45-73) % Lymph % (Auto) (20-40) % Leon % (Auto) (2-11) % Eos % (Auto) (0-4) % Baso % (Auto) (0-2) % Lymph # (Auto) (1.2-4.9) X10*3/uL Leon # (Auto) (0.1-1.2) X10*3/uL Eos # (Auto) (0.0-0.4) X10*3/uL Baso # (Auto) (0.0-0.2) X10*3/uL Abs Immat Gran (auto) (0.00-0.03) X10*3/uL Absolute Neuts (auto) (2.0-8.3) x10*3/uL Absolute Nucleated RBC (0.0-0.012) X10*3/uL Nucleated RBC % (auto) (0.0-0.2) /100WBC D-Dimer High Sensitivty 185 NG/ML Sodium (135-145) mmol/L Potassium (3.3-5.1) mmol/L Chloride (96-108) mmol/L Carbon Dioxide (22-29) mmol/L Anion Gap (12-20) BUN (9-16) mg/dL Creatinine (0.5-1.4) mg/dL Estim Creat Clear Calc Estimated GFR Random Glucose (60-115) mg/dL Lactic Acid 0.9 (0.5-2.0) mmol/L Calcium (8.4-10.2) mg/dL Magnesium (1.6-2.6) mg/dL Total Bilirubin (0.0-1.0) mg/dL AST (5-31) U/L ALT (0-31) U/L Alkaline Phosphatase (39-117) U/L Troponin I High Sens (<3.5-17.0) ng/L Total Protein (6.5-8.0) g/dL Albumin (3.5-5.0) g/dL Urine Color Urine Appearance Urine pH (5.0-9.0) Ur Specific [place] (1.005-1.025) Urine Protein (Neg-Trace) mg/dL Urine Glucose (UA) (Negative) mg/dL Urine Ketones (Negative) mg/dL Urine Blood (Negative) Urine Nitrite (Negative) Ur Leukocyte Esterase (Negative) Urine Opiates Screen POSITIVE H (Not Detect) Urine Fentanyl Screen POSITIVE H (Not Detect) Ur Barbiturates Screen Not Detected (Not Detect) Ur Phencyclidine Scrn Not Detected (Not Detect) Ur Amphetamines Screen Not Detected (Not Detect) U Benzodiazepines Scrn POSITIVE H (Not Detect) Urine Cocaine Screen POSITIVE H (Not Detect) U Marijuana (THC) Screen POSITIVE H (Not Detect) Ethyl Alcohol mg/dL COVID-19 (DAVID) (Negative) COVID-19 Clin Com Influenza Type A (TYSON) (Negative) Influenza Type B (TYSON) (Negative) Influenza A & B Note <LISA Juares - Last Filed: 09/25/22 20:55> Independent Interpretation I performed an independent interpretation of an: EKG and CT Scan <Huyen Branch CNP - Last Filed: 09/25/22 18:08> Interpretation: Rate: 95 Rhythm:? Normal sinus rhythm [place]:? Normal Normal P waves.? Normal RIGO.?? Normal QRS complex.?? ST T wave :??No ST elevation, no ST depression, no T-wave inversion qTC: 452 prior studies:? July 2022 The study has been interpreted contemporaneously by me. <Huyen Branch CNP - Last Filed: 09/25/22 18:08> Radiology Impression Discussion of test interpretation with radiology: I have reviewed the radiologist's reading. <Huyen Branch CNP - Last Filed: 09/25/22 18:08> Radiologist Impression: CT/CT head/brain wo IV con IMPRESSION: No acute intracranial process seen. ? There is mild straightening of cervical lordosis. No visible acute fracture, dislocation or subluxation seen.? <Huyen Branch CNP - Last Filed: 09/25/22 18:08> Discharge Plan Discharge Clinical Impression: Laceration of scalp, Polysubstance use disorder, Syncope <Huyen Branch CNP - Last Filed: 09/25/22 18:08> Patient Disposition: Home, Self-Care <Huyen Branch CNP - Last Filed: 09/25/22 18:08> Additional Instructions: [place] will need to be removed in 7-10 days, you may follow-up with your primary care doctor's office or return to the emergency department for removal. TAKE YOUR MEDICATIONS PRESCRIBED. IF YOU WERE PRESCRIBED ANTIBIOTICS TODAY, IT IS IMPORTANT THAT YOU TAKE YOUR MEDICATION TO THEIR ENTIRETY, DO NOT SKIP ANY DOSES, DO NOT FINISH THEM EARLY. FOLLOW-UP WITH YOUR PRIMARY CARE PROVIDER THIS WEEK. RETURN TO THE EMERGENCY DEPARTMENT WITH NEW OR WORSENING SYMPTOMS. SUCH FEVERS, CHILLS, CHEST PAIN, SHORTNESS OF BREATH, NAUSEA, VOMITING, DIZZINESS, HEADACHE, VISION CHANGES, LETHARGY IN CASE OF EMERGENCY CALL 911 <Huyen Branch CNP - Last Filed: 09/25/22 18:08> Prescriptions: No Action prazosin 2 mg capsule 2 mg PO BEDTIME 30 Days Qty: 30 1RF albuterol sulfate 2.5 mg /3 mL (0.083 %) solution for nebulization 2.5 mg inhalation TID 90 Days Qty: 810 0RF albuterol sulfate [ProAir HFA] 90 mcg/actuation HFA aerosol inhaler 2 puff INHALATION QID PRN (Reason: Dyspnea) 30 Days Qty: 8.5 1RF Advair HFA 115-21 mcg/actuation HFA aerosol inhaler 2 puff inhalation BID Qty: 12 0RF prednisone 20 mg tablet 40 mg PO DAILY Qty: 6 0RF methadone 10 mg/mL Concentrate 120 mg PO DAILY clonidine HCl 0.1 mg tablet 1 tab PO BID PRN (Reason: Anxiety) clonidine HCl 0.2 mg tablet 1 tab PO BEDTIME gabapentin 800 mg tablet 1 tab PO TID omeprazole 40 mg capsule,delayed release(DR/EC) 40 mg PO DAILY PRN (Reason: GI UPSET) clonazepam 2 mg tablet 1 tab PO BID PRN (Reason: Anxiety) (DME) nebulizers Misc See Rx Instructions .ROUTE Rx Instructions: As directed <Huyen Branch CNP - Last Filed: 09/25/22 18:08> Referrals: Vincent Hayes, [facility]- [Primary Care Provider] - 2 days <Huyen Branch CNP - Last Filed: 09/25/22 18:08> Stand Alone Forms: Work/School Release <Huyen Branch CNP - Last Filed: 09/25/22 18:08>
[2022-09-25 13:29] LABS: MANUAL DIFF FLAG NO
[2022-09-25 13:32] LABS: Appearance Urine Clear; Color Urine Yellow; Glucose Urine UA Negative (Negative); Leukocyte Esterase Urine Negative (Negative); Nitrite Urine Negative (Negative); Specific Gravity - Urine 1.025 (1.005-1.025); Urine Blood Negative (Negative); Urine Ketones Negative (Negative); Urine Protein Negative (Neg-Trace)
[2022-09-25 13:33] LABS: Basophils Percent Auto 0.3 % (0-2); Eosinophils Absolute Auto 0.1 X10*3/uL (0.0-0.4); Eosinophils Percent Auto 1.6 % (0-4); Hematocrit 42.1 % (37.0-47.0); Hemoglobin 14.1 g/dl (12.0-16.0); Imm Gran Abs Auto 0.04 X10*3/uL (0.00-0.03); Imm Gran Pct Auto 0.5 % (0.0-0.4); Lymphocytes Absolute Auto 1.2 X10*3/uL (1.2-4.9); Mean Corpuscular HGB Conc 33.5 g/dl (31.0-35.0); Mean Corpuscular Hemoglobin 27.6 pg (27.0-33.0); Mean Corpuscular Volume 82.4 fL (80.0-98.0); Mean Platelet Volume 9.3 fL (9.4-12.3); Monocytes Absolute Auto 0.5 X10*3/uL (0.1-1.2); Monocytes Percent Auto 5.5 % (2-11); Neutrophils Absolute Auto 6.9 x10*3/uL (2.0-8.3); Neutrophils Percent Auto 78.1 % (45-73); Platelet Count 332 X10*3/uL (160-400); Red Blood Count 5.11 X10*6/uL (4.20-5.50); Red Cell Distribution Width 13.2 % (11.0-16.0); White Blood Count 8.9 X10*3/uL (4.8-10.8)
[2022-09-25 13:42] LABS: Amphetamine Screen Urine Not Detected (Not Detect); Barbiturates, Urine Not Detected (Not Detect); Benzodiazepines Screen Urine POSITIVE (Not Detect); Cannabinoid Screen Urine POSITIVE (Not Detect); Cocaine Screen Urine POSITIVE (Not Detect); Fentanyl, urine POSITIVE (Not Detect); Opiate Screen Urine POSITIVE (Not Detect); Phencyclidine Screen Urine Not Detected (Not Detect)
[2022-09-25 13:46] LABS: COVID-19 Test Negative (Negative); IDNOW Serial# 16C4AD1C; IDNOW Serial# BCCEAD1C; Influenza A Negative (Negative); Influenza B2 Negative (Negative)
[2022-09-25 14:00] LABS: Alanine Aminotransferase 30 U/L (0-31); Albumin Level 4.6 g/dL (3.5-5.0); Alkaline Phosphatase 88 U/L (39-117); Anion Gap 14 (12-20); Aspartate Amino Transferase 21 U/L (5-31); Bilirubin Total 0.4 mg/dL (0.0-1.0); Blood Urea Nitrogen 14 mg/dL (9-16); Carbon Dioxide 30 mmol/L (22-29); Chloride 97 mmol/L (96-108); Creatinine Clr Calc Pharmacy 103.1; Estimated Glomerular Filt Rate > 60; Ethanol < 10 mg/dL; Glucose Random 104 mg/dL (60-115); Magnesium 2.1 mg/dL (1.6-2.6); Potassium 3.9 mmol/L (3.3-5.1); Sodium 137 mmol/L (135-145); Total Protein 7.7 g/dL (6.5-8.0); Troponin-I High Sensitivity < 3.5 ng/L (<3.5-17.0)
[2022-09-25] MEDS: Acetaminophen 325 MG TABLET 975 MG PO (15:18)
--- NOTE | 2022-09-25 15:27 | PC.NURSE ---
report received from LAYLA Sutherland. Pt is resting on stretcher, reports increased anxiety. This RN gave pt Tylenol for pain, awaiting CT scan results. Pt medications are awaiting verification by pharmacy for anxiety medications
--- NOTE | 2022-09-25 18:11 | PC.NURSE ---
this nurse attempted blood draw x3 in right medial and lateral forearm veins- without success primary RN aware
[2022-09-25 18:56] LABS: D Dimer High Sensitivity 185 NG/ML
--- NOTE | 2022-09-25 19:11 | PC.NURSE ---
Pt is resting comfortably on stretcher with family member at bedside. Pt anxious about being in Emergency Department and listening to other patients yelling. Awaiting lab work at this time
[2022-09-25 19:15] LABS: Lactic Acid 0.9 mmol/L (0.5-2.0)
== END 2022-09-25 21:09 | disposition home or self-care (01) ==
PROVIDERS: Nurse Practitioner Family; Emergency Provider Student in an Organized Health Care Education/Training Program; PCP Nurse Practitioner Family
DX: S01.01XA Laceration without foreign body of scalp, initial encounter (principal); R51.9 Headache, unspecified; R56.9 Unspecified convulsions; M54.2 Cervicalgia; F11.10 Opioid abuse, uncomplicated; W01.10XA Fall on same level from slipping, tripping and stumbling with subsequent striking against unspecified object, initial encounter; Y93.9 Activity, unspecified; Y92.9 Unspecified place or not applicable; Y99.9 Unspecified external cause status; Z79.899 Other long term (current) drug therapy; Z87.891 Personal history of nicotine dependence; Z20.822 Contact with and (suspected) exposure to COVID-19; Z20.828 Contact with and (suspected) exposure to other viral communicable diseases
CPT/HCPCS: 12001; 36415; 70450; 72125; 80053; 80307; 81003; 82077; 83605; 83735; 84484; 85025; 85379; 87502; 87635; 93005; 99284

== ENCOUNTER 2022-10-06 11:50 | Emergency (ER) | payer OTHER, SELFPAY ==
[2022-10-06 12:14] VITALS: BP 111/84; PULSE 80; RESP 16; TEMP 36.6; O2SAT 97; BMI 18.3
--- NOTE | 2022-10-06 12:15 | ED.GENADULT ---
HPI - General Adult General Chief complaint: General Medical Stated complaint: Methadone dose/[place] need to be removed Time Seen by Provider: 10/06/22 12:08 Source: patient Mode of arrival: ambulatory Limitations: no limitations History of Present Illness HPI narrative: 27-year-old female who is currently on methadone 50 mg who is presenting to the ER for staple removal and requesting her methadone dose. Reports that she missed her methadone dose today. Denies any other symptoms related to this. MD complaint: Requiring methadone dosing and staple removal Onset (ago): day(s) (Needs methadone dosing for today) Related Data Home Medications Medication Instructions Recorded Confirmed methadone 10 mg/mL oral concentrate 120 mg PO DAILY 11/30/21 08/02/22 nebulizers 05/23/22 clonazepam 2 mg tablet 1 tab PO BID PRN Anxiety 08/01/22 08/01/22 clonidine HCl 0.1 mg tablet 1 tab PO BID PRN Anxiety 08/01/22 08/01/22 clonidine HCl 0.2 mg tablet 1 tab PO BEDTIME 08/01/22 08/01/22 gabapentin 800 mg tablet 1 tab PO TID 08/01/22 08/01/22 omeprazole 40 mg capsule,delayed 40 mg PO DAILY PRN GI UPSET 08/01/22 08/01/22 release Previous Rx's Medication Instructions Recorded prazosin 2 mg capsule 2 mg PO BEDTIME 30 days #30 caps 09/18/21 albuterol sulfate 2.5 mg/3 mL 2.5 mg (3 mL) inhalation TID 90 08/20/22 (0.083 %) solution for nebulization days #810 mL albuterol sulfate 90 mcg/actuation 2 puff inhalation QID PRN Dyspnea 08/20/22 aerosol inhaler (ProAir HFA) 30 days #8.5 grams fluticasone propionate 115 2 puff inhalation BID #12 grams 08/20/22 mcg-salmeterol 21 mcg/actuation HFA inhaler (Advair HFA) prednisone 20 mg tablet 40 mg PO DAILY #6 tabs 08/20/22 Allergies Allergy/AdvReac Type Severity Reaction Status Date / Time latex [LATEX] Allergy Intermediate RASH Verified 06/21/22 21:10 adhesive tape [ADHESIVE TAPE] AdvReac Intermediate RASH Verified 06/21/22 21:10 Review of Systems Review of Systems: Constitutional : No Weight loss, No Fever, No Chills, No Night Sweats, No Fatigue, No Malaise ENT/Mouth : No Hearing loss, No Ear Pain, No Nasal Congestion, No Sinus Pain, No Hoarseness, No sore throat, No Rhinorrhea, No Swallowing Difficulty Eyes: No Eye Pain, No Swelling, No Redness, No Foreign Body, No Discharge, No Vision Changes Cardiovascular : No Chest Pain, No SOB, No Dyspnea on Exertion, No Orthopnea, No Edema, No Palpitations Respiratory : No Cough, No Sputum, No Wheezing, No Smoke Exposure, No Dyspnea Gastrointestinal : No Nausea, No Vomiting, No Diarrhea, No Constipation, No abdominal Pain, No Hematochezia, No Melena Genitourinary : no irregular bleeding, No Dysuria, No Urinary Frequency, No Hematuria, No Urinary Incontinence, No Urgency, No Flank Pain, No Urinary Flow Changes, No Hesitancy Musculoskeletal : No joint pain, No Myalgias, No Joint Swelling Skin : + wound to scalp healing, No Skin Lesions, No rash Neuro : No Weakness, No Numbness, No Paresthesias, No Loss of Consciousness, No Dizziness, No Headache Psych : No Anxiety/Panic, No Depression, No SI/HI/AH/VH, No Social Issues, Heme/Lymph: No Bruising, No Bleeding,No Lymphadenopathy Endocrine : No Polyuria, No Polydipsia, No Temperature Intolerance Yes all other systems are reviewed and are negative [facility] Past Medical History Attestation statement: The following information was validated with the patient. Source: old records reviewed and nursing notes reviewed Medical History Anxiety Asthma Asthma Asthma Bipolar disorder COVID-19 Crohn's disease Depression GERD (gastroesophageal reflux disease) Opioid use disorder Pneumonia due to COVID-19 virus Pneumonitis PTSD (post-traumatic stress disorder) Family History Family History Father Colon cancer Mother No problems noted. Brother Autism Sister Bipolar disorder Maternal Aunt Breast cancer Social History Social History Household Members: Significant Other Housing: Other Housing Other:: motel Do you presently have visiting nurse or other home services: No Alcohol intake: unknown Patient Tobacco Use Status: Former Tobacco user Cigarette Packs Per Day: 0.33 Cigarettes Per Day: 6.6 Years Smoked: 9 e-Cigarette/Vaping Use: Former Use Second Hand Smoke Exposure: Yes Substance Use Type: Heroin Advance Directives: No Advance Directives Information Provided: No Advance Directives Date on File: 05/07/21 service: No Current occupational status: unemployed Cognitive needs: No Hearing needs: No Vision needs: No Physical Exam ED Vital Signs: Vital Signs - 24 hr 10/06/22 12:14 Temperature 98 F Pulse Rate 80 Respiratory Rate 16 Blood Pressure 111/84 Pulse Oximetry 97 Oxygen Delivery Method Room Air BMI result Body Mass Index 18.3 vital signs have been reviewed as normal and appeared to be correct. Blood pressure normal. Heart rate normal. Respiration rate normal. Temperature normal. Oxygen saturation normal. Appearance: Alert. Oriented X3. No acute distress. Head: 2 jamil to right parietal aspect. No signs of infection or purulent drainage or surrounding erythema noted. The rest of the external exam is within normal limits. Normal external exam. Normocephalic. Atraumatic. Eyes: PERRLA. EOMI. Conjunctiva and sclera normal. Eyelids normal. ENT: Pharynx normal. Uvula midline. Moist mucous membranes. No lesions/ulcerations or masses noted on the tongue. Normal voice. No trismus noted. No drooling noted. No muffled voice noted. Neck: Normal inspection. Neck supple. FROM. No adenopathy. Thyroid Normal. No tracheal deviation noted. No crepitus is noted. No meningeal signs. No neck mass noted. No signs of trauma noted. CVS: Normal heart rate and rhythm. Heart sound normal. Pulses normal throughout. No murmurs/rales/gallops. Respiratory: No respiratory distress. Painless inspiration. Breath sounds normal. No wheezes/rales/rhonchi noted. Chest nontender. No crepitus is noted. No signs of trauma noted. No accessory muscle usage noted or decreased air movement noted. No signs of trauma. Abdomen: Soft and nontender. Bowel sounds normal in all 4 quadrants. No distention noted. No organomegaly noted. No visible injury noted. Back: No CVA tenderness. Full range of motion noted. Nontender. No signs of trauma. Patient neuro intact bilaterally and distally on all 4 extremities. Patient's reflexes intact bilaterally and distally on all 4 extremities. No rashes/lesion/induration/fluctuance or signs of infection noted. Skin: Skin warm and dry. Normal skin color. Normal skin turgor. No rashes/lesions/lacerations noted. Extremities: No lower extremity edema. No calf tenderness is noted. Extremities exhibit normal range of motion and nontender. Neuro: Oriented X 3. No motor deficit. No sensory deficit. Reflexes normal. Normal steady gait. No focal neuro deficits noted. CN's II-XII intact bilaterally? Vascular: + radial pulses/+ 2 distal pedal pulses/+2 dorsalis pedis b/l. Normal cap refill. No cyanosis noted to upper extremity nails and lower extremity toes nails. Course Course Course Narrative: Patient given her 50 mg of her methadone dose.. Patient now status post staple removal. Two jamil removed. Patient tolerated procedure well. No complications. Will DC home with instructions return if any new or worsening symptoms follow up with primary care provider and to go to her methadone clinic tomorrow. Patient understands agrees with this plan. Medications Administered Discontinued Medications Generic Name Dose Route Start Last Admin Trade Name Tomiq PRN Reason Stop Dose Admin Albuterol Sulfate 4 puff 10/06/22 12:15 10/06/22 12:27 Albuterol Sulfate 90 Mcg 8 Gm Inhaler INHALE 10/06/22 12:16 4 puff ONCE ONE Administration Methadone HCl 50 mg 10/06/22 12:15 10/06/22 12:28 Methadone Hcl 20 Mg/2 Ml Oral.Conc PO 10/06/22 12:16 50 mg ONCE ONE Administration Discharge Plan Discharge Clinical Impression: Encounter for removal of jamil, Methadone dependence, Medication refill Patient Disposition: Home, Self-Care Instructions: Medicine Refill (ED), Stitches Removal (ED) Additional Instructions: He received methadone today 50 mg. You should follow-up with your methadone clinic tomorrow. You can use this as a last dose letter. Return if any new or worsening symptoms. Follow up with her primary care provider. Prescriptions: No Action prazosin 2 mg capsule 2 mg PO BEDTIME 30 Days Qty: 30 1RF albuterol sulfate 2.5 mg /3 mL (0.083 %) solution for nebulization 2.5 mg inhalation TID 90 Days Qty: 810 0RF albuterol sulfate [ProAir HFA] 90 mcg/actuation HFA aerosol inhaler 2 puff INHALATION QID PRN (Reason: Dyspnea) 30 Days Qty: 8.5 1RF Advair HFA 115-21 mcg/actuation HFA aerosol inhaler 2 puff inhalation BID Qty: 12 0RF prednisone 20 mg tablet 40 mg PO DAILY Qty: 6 0RF methadone 10 mg/mL Concentrate 120 mg PO DAILY clonidine HCl 0.1 mg tablet 1 tab PO BID PRN (Reason: Anxiety) clonidine HCl 0.2 mg tablet 1 tab PO BEDTIME gabapentin 800 mg tablet 1 tab PO TID omeprazole 40 mg capsule,delayed release(DR/EC) 40 mg PO DAILY PRN (Reason: GI UPSET) clonazepam 2 mg tablet 1 tab PO BID PRN (Reason: Anxiety) (DME) nebulizers Misc See Rx Instructions .ROUTE Rx Instructions: As directed Referrals: Vincent Hayes, [employer] [Primary Care Provider] - 1 day Interventions: ED Discharge Assessment Last Done: 10/06/22 12:40 Discharge Date/Time: 10/06/22 12:41
[2022-10-06] MEDS: Albuterol Sulfate 90 MCG 8 GM INHALER 4 PUFF INHALE (12:27)
[2022-10-06] MEDS: methADONE HCl 20 MG/2 ML ORAL.CONC 50 MG PO (12:28)
== END 2022-10-06 12:41 | disposition home or self-care (01) ==
PROVIDERS: Emergency Provider Emergency Medicine Emergency Medical Services; PCP Nurse Practitioner Family
DX: F11.20 Opioid dependence, uncomplicated (principal); Z48.02 Encounter for removal of sutures; Z79.899 Other long term (current) drug therapy
CPT/HCPCS: 99282

== ENCOUNTER 2023-02-18 17:25 | Inpatient (IN) | payer OTHER, SELFPAY ==
--- NOTE | ~2023-02-18 | XR_ITS ---
EXAMINATION: XR CHEST CLINICAL INFORMATION: Shortness of breath COMPARISON: 08/01/2022 TECHNIQUE: 2 views of the chest were obtained. FINDINGS: No significant abnormality is noted involving the heart, lungs, mediastinum, bony thorax or soft tissues. XR/XR chest 2V IMPRESSION: Unremarkable examination.
[2023-02-18 17:39] VITALS: BP 110/70; BP 117/63; PULSE 123; PULSE 130; RESP 26; TEMP 36.8; O2SAT 95; O2SAT 98; BMI 22.6
--- NOTE | 2023-02-18 17:41 | ED_ITS ---
HPI - SOB/Dyspnea General Chief Complaint: Asthma Stated Complaint: SOB,H/O ASTHME PER EMS Time Seen by Provider: 02/18/23 17:36 Source: patient and EMS Mode of arrival: EMS History of Present Illness HPI Narrative: 27-year-old female with a history of mood disorder and substance use disorder but has been clean and on methadone and states that she was recently diagnosed through [facility] pulmonology with a lung disease and on review a pulmonology note from 04/2022 Dr. Mcwilliams reports severe persistent asthma and at that time was going to start patient on biologics due to elevated IgE levels and significant eosinophilia. Patient states that she has had multiple episodes of pneumonia in states the last episode was 2 months ago. She says that for approximately 2 weeks he has been able to manage her symptoms with inhaled nebulized treatments for asthma but today ill was not helping at all. She denies any fevers or chills. But reports a productive cough. Related Data Home Medications Medication Instructions Recorded Confirmed methadone 10 mg/mL oral concentrate 120 mg PO DAILY 11/30/21 08/02/22 nebulizers 05/23/22 clonazepam 2 mg tablet 1 tab PO BID PRN Anxiety 08/01/22 08/01/22 clonidine HCl 0.1 mg tablet 1 tab PO BID PRN Anxiety 08/01/22 08/01/22 clonidine HCl 0.2 mg tablet 1 tab PO BEDTIME 08/01/22 08/01/22 gabapentin 800 mg tablet 1 tab PO TID 08/01/22 08/01/22 omeprazole 40 mg capsule,delayed 40 mg PO DAILY PRN GI UPSET 08/01/22 08/01/22 release Previous Rx's Medication Instructions Recorded prazosin 2 mg capsule 2 mg PO BEDTIME 30 days #30 caps 09/18/21 albuterol sulfate 2.5 mg/3 mL 2.5 mg (3 mL) inhalation TID 90 08/20/22 (0.083 %) solution for nebulization days #810 mL albuterol sulfate 90 mcg/actuation 2 puff inhalation QID PRN Dyspnea 08/20/22 aerosol inhaler (ProAir HFA) 30 days #8.5 grams fluticasone propionate 115 2 puff inhalation BID #12 grams 08/20/22 mcg-salmeterol 21 mcg/actuation HFA inhaler (Advair HFA) prednisone 20 mg tablet 40 mg PO DAILY #6 tabs 08/20/22 Allergies Allergy/AdvReac Type Severity Reaction Status Date / Time latex [LATEX] Allergy Intermediate RASH Verified 02/18/23 17:39 ondansetron [From Zofran] Allergy Intermediate Shortness Verified 02/18/23 17:39 of Breath propranolol Allergy Intermediate Shortness Verified 02/18/23 17:39 of Breath adhesive tape [ADHESIVE TAPE] AdvReac Intermediate RASH Verified 02/18/23 17:39 Review of Systems Review of Systems: Pertinent positives and negatives as stated in HPI PMFSH Past Medical History Source: nursing notes reviewed Medical History Anxiety Asthma Asthma Asthma Bipolar disorder COVID-19 Crohn's disease Depression GERD (gastroesophageal reflux disease) Opioid use disorder Pneumonia due to COVID-19 virus Pneumonitis PTSD (post-traumatic stress disorder) Family History Family History Father Colon cancer Mother No problems noted. Brother Autism Sister Bipolar disorder Maternal Aunt Breast cancer Social History Social History Household Members: Significant Other Housing: Other Housing Other:: [facility] Do you presently have visiting nurse or other home services: No Alcohol intake: unknown Patient Tobacco Use Status: Former Tobacco user Cigarette Packs Per Day: 0.33 Cigarettes Per Day: 6.6 Years Smoked: 9 e-Cigarette/Vaping Use: Former Use Second Hand Smoke Exposure: Yes Substance Use Type: Heroin Advance Directives: Yes Advance Directives on File: Yes Advance Directives Date on File: 05/07/21 service: No Current occupational status: unemployed Cognitive needs: No Hearing needs: No Vision needs: No Physical Exam Vital Signs: Vital Signs: Last Vital Signs Temp 98.2 F 02/18/23 17:39 Pulse 101 H 02/18/23 18:06 Resp 23 H 02/18/23 18:06 BP 117/63 02/18/23 17:39 Pulse Ox 98 02/18/23 17:39 O2 Del Method Room Air 02/18/23 17:39 BMI result Body Mass Index 22.6 VITAL SIGNS: Reviewed. GENERAL: Well developed, well nourished, in no acute distress. HEAD: Normocephalic/atraumatic EYES: PERRLA, EOMI EARS: Ext canals without abnormality NOSE: Nares patent bilateral OROPHARYNX: no oral lesions noted, posterior pharynx clear NECK: Supple, no adenopathy LUNGS: Coarse rhonchi bilaterally, expiratory wheeze noted, tachypnea noted. SpO2<99> on current breathing treatment CARDIOVASCULAR: Regular rate and rhythm without noted murmurs ABDOMEN: Soft, non-tender, non-distended with bowel sounds. MUSCULOSKELETAL: No tenderness, deformities, or effusions noted on gross inspection. EXTREMITIES: No cyanosis, clubbing or edema. SKIN: Inspection of the skin reveals no rashes NEUROLOGIC: Alert and oriented x 4. Strength and sensation to light touch were grossly intact x 4. Medications Administered Discontinued Medications Generic Name Dose Route Start Last Admin Trade Name Freq PRN Reason Stop Dose Admin Albuterol Sulfate 10 mg 02/18/23 17:54 02/18/23 18:03 Albuterol Sulfate (0.083%) 2.5 Mg/3 Ml Vial.Neb INHALE 02/18/23 17:55 10 mg ONCE ONE Administration Diphenhydramine HCl 25 mg 02/18/23 17:39 02/18/23 17:54 Diphenhydramine Hcl 50 Mg/Ml Vial IVPUSH 02/18/23 17:40 25 mg ONCE ONE Administration Famotidine 20 mg 02/18/23 17:39 02/18/23 17:54 Famotidine/Pf 20 Mg/2 Ml Vial IVPUSH 02/18/23 17:40 20 mg ONCE ONE Administration Medical Decision Making Medical Decision Making [facility] Narrative: 1745: 27-year-old female with history and clinical presentation suggestive of multifactorial symptoms asthma exacerbation with anxiety. She reports she has head mild improvement since EMS arrival. She is oxygenating well, and states that she often has the nausea related with pneumonia . On review of all documentation I do not see admission for pneumonia and strongly suspect that initial leukocytes that will be reported are secondary to receiving steroids as patient is afebrile and tachycardia is secondary to albuterol treatment which will likely affect the lactic acid levels as well. She otherwise appears well. I reviewed all investigations, there is no evidence to suggest a pneumonia, patient still with significant expiratory wheeze and shortness of breath and although she does not have any hypoxia and remains afebrile she will benefit from a course of IV steroids. I discussed this with the inpatient hospitalist who accepts admission. Differential Diagnosis Please see the discussion above Consult Healthcare Provider Management of the patient was discussed with: Hospitalist Please see the discussion above Lab Data Please see the discussion above 02/18/23 18:04 02/18/23 18:04 Labs: Lab Results 02/18/23 02/18/23 02/18/23 Range/Units 18:04 18:04 18:04 WBC 7.6 (4.8-10.8) X10*3/uL RBC 4.83 (4.20-5.50) X10*6/uL Hgb 13.5 (12.0-16.0) g/dl Hct 41.0 (37.0-47.0) % MCV 84.9 (80.0-98.0) fL MCH 28.0 (27.0-33.0) pg MCHC 32.9 (31.0-35.0) g/dl RDW 13.4 (11.0-16.0) % Plt Count 244 D (160-400) X10*3/uL MPV 9.9 (9.4-12.3) fL Immature Gran % (Auto) 0.3 (0.0-0.4) % Neut % (Auto) 69.5 (45-73) % Lymph % (Auto) 17.4 L (20-40) % [place] % (Auto) 4.9 (2-11) % Eos % (Auto) 7.5 H (0-4) % Baso % (Auto) 0.4 (0-2) % Lymph # (Auto) 1.3 (1.2-4.9) X10*3/uL [place] # (Auto) 0.4 (0.1-1.2) X10*3/uL Eos # (Auto) 0.6 H (0.0-0.4) X10*3/uL Baso # (Auto) 0.0 (0.0-0.2) X10*3/uL Abs Immat Gran (auto) 0.02 (0.00-0.03) X10*3/uL Absolute Neuts (auto) 5.3 (2.0-8.3) x10*3/uL Absolute Nucleated RBC 0.000 (0.0-0.012) X10*3/uL Nucleated RBC % (auto) 0.0 (0.0-0.2) /100WBC Sodium 138 (135-145) mmol/L Potassium 4.0 (3.3-5.1) mmol/L Chloride 104 (96-108) mmol/L Carbon Dioxide 22 (22-29) mmol/L Anion Gap 16 (12-20) BUN 10 (9-16) mg/dL Creatinine 0.64 (0.5-1.4) mg/dL Estim Creat Clear Calc 120.9 Estimated GFR > 60 Random Glucose 122 H (60-115) mg/dL Lactic Acid 2.0 (0.5-2.0) mmol/L Calcium 9.9 (8.4-10.2) mg/dL Total Bilirubin 0.6 (0.0-1.0) mg/dL AST 19 (5-31) U/L ALT 17 (0-31) U/L Alkaline Phosphatase 86 (39-117) U/L Total Protein 7.7 (6.5-8.0) g/dL Albumin 4.6 (3.5-5.0) g/dL Beta HCG, Quant mIU/mL 02/18/23 Range/Units 18:04 WBC (4.8-10.8) X10*3/uL RBC (4.20-5.50) X10*6/uL Hgb (12.0-16.0) g/dl Hct (37.0-47.0) % MCV (80.0-98.0) fL MCH (27.0-33.0) pg MCHC (31.0-35.0) g/dl RDW (11.0-16.0) % Plt Count (160-400) X10*3/uL MPV (9.4-12.3) fL Immature Gran % (Auto) (0.0-0.4) % Neut % (Auto) (45-73) % Lymph % (Auto) (20-40) % [place] % (Auto) (2-11) % Eos % (Auto) (0-4) % Baso % (Auto) (0-2) % Lymph # (Auto) (1.2-4.9) X10*3/uL [place] # (Auto) (0.1-1.2) X10*3/uL Eos # (Auto) (0.0-0.4) X10*3/uL Baso # (Auto) (0.0-0.2) X10*3/uL Abs Immat Gran (auto) (0.00-0.03) X10*3/uL Absolute Neuts (auto) (2.0-8.3) x10*3/uL Absolute Nucleated RBC (0.0-0.012) X10*3/uL Nucleated RBC % (auto) (0.0-0.2) /100WBC Sodium (135-145) mmol/L Potassium (3.3-5.1) mmol/L Chloride (96-108) mmol/L Carbon Dioxide (22-29) mmol/L Anion Gap (12-20) BUN (9-16) mg/dL Creatinine (0.5-1.4) mg/dL Estim Creat Clear Calc Estimated GFR Random Glucose (60-115) mg/dL Lactic Acid (0.5-2.0) mmol/L Calcium (8.4-10.2) mg/dL Total Bilirubin (0.0-1.0) mg/dL AST (5-31) U/L ALT (0-31) U/L Alkaline Phosphatase (39-117) U/L Total Protein (6.5-8.0) g/dL Albumin (3.5-5.0) g/dL Beta HCG, Quant < 2 mIU/mL External Record Review External record reviewed: Prior outpatient labs Chronic Conditions Patient?s care impacted by: Other Asthma Discharge Plan Discharge Clinical Impression: Severe asthma with exacerbation Patient Disposition: Admitted As Inpatient Prescriptions: No Action prazosin 2 mg capsule 2 mg PO BEDTIME 30 Days Qty: 30 1RF albuterol sulfate 2.5 mg /3 mL (0.083 %) solution for nebulization 2.5 mg inhalation TID 90 Days Qty: 810 0RF albuterol sulfate [ProAir HFA] 90 mcg/actuation HFA aerosol inhaler 2 puff INHALATION QID PRN (Reason: Dyspnea) 30 Days Qty: 8.5 1RF Advair HFA 115-21 mcg/actuation HFA aerosol inhaler 2 puff inhalation BID Qty: 12 0RF prednisone 20 mg tablet 40 mg PO DAILY Qty: 6 0RF methadone 10 mg/mL Concentrate 120 mg PO DAILY clonidine HCl 0.1 mg tablet 1 tab PO BID PRN (Reason: Anxiety) clonidine HCl 0.2 mg tablet 1 tab PO BEDTIME gabapentin 800 mg tablet 1 tab PO TID omeprazole 40 mg capsule,delayed release(DR/EC) 40 mg PO DAILY PRN (Reason: GI UPSET) clonazepam 2 mg tablet 1 tab PO BID PRN (Reason: Anxiety) (DME) nebulizers Misc See Rx Instructions .ROUTE Rx Instructions: As directed
[2023-02-18] MEDS: diphenhydrAMINE HCL 50 MG/ML VIAL 25 MG IVPUSH (17:54)
[2023-02-18] MEDS: Famotidine/PF 20 MG/2 ML VIAL IVPUSH (17:54)
[2023-02-18] MEDS: Albuterol Sulfate (0.083%) 2.5 MG/3 ML VIAL.NEB 10 MG INHALE (18:03)
[2023-02-18 18:06] VITALS: PULSE 101; RESP 23; O2SAT 94
[2023-02-18 18:14] LABS: MANUAL DIFF FLAG NO
--- NOTE | 2023-02-18 18:15 | PC.NURSE ---
patient a&ox3, pt speaking in short sentences, monitor car operator applied- pt sinus tach on monitor- vitals otherwise stable, iv previously inserted by ems, labs drawn by tech, pt medicated per order, RT gave second updraft, pts lungs have rhonchi throughout with expiratory wheezing at the bases, call quinn within reach, will continue to monitor.
[2023-02-18 18:17] LABS: Basophils Percent Auto 0.4 % (0-2); Eosinophils Absolute Auto 0.6 X10*3/uL (0.0-0.4); Eosinophils Percent Auto 7.5 % (0-4); Hemoglobin 13.5 g/dl (12.0-16.0); Imm Gran Abs Auto 0.02 X10*3/uL (0.00-0.03); Imm Gran Pct Auto 0.3 % (0.0-0.4); Lymphocytes Absolute Auto 1.3 X10*3/uL (1.2-4.9); Lymphocytes Percent Auto 17.4 % (20-40); Mean Corpuscular HGB Conc 32.9 g/dl (31.0-35.0); Mean Corpuscular Volume 84.9 fL (80.0-98.0); Mean Platelet Volume 9.9 fL (9.4-12.3); Monocytes Absolute Auto 0.4 X10*3/uL (0.1-1.2); Monocytes Percent Auto 4.9 % (2-11); Neutrophils Absolute Auto 5.3 x10*3/uL (2.0-8.3); Neutrophils Percent Auto 69.5 % (45-73); Platelet Count 244 X10*3/uL (160-400); Red Blood Count 4.83 X10*6/uL (4.20-5.50); Red Cell Distribution Width 13.4 % (11.0-16.0); White Blood Count 7.6 X10*3/uL (4.8-10.8)
[2023-02-18 18:46] LABS: Alanine Aminotransferase 17 U/L (0-31); Albumin Level 4.6 g/dL (3.5-5.0); Alkaline Phosphatase 86 U/L (39-117); Anion Gap 16 (12-20); Aspartate Amino Transferase 19 U/L (5-31); Bilirubin Total 0.6 mg/dL (0.0-1.0); Blood Urea Nitrogen 10 mg/dL (9-16); Calcium 9.9 mg/dL (8.4-10.2); Carbon Dioxide 22 mmol/L (22-29); Chloride 104 mmol/L (96-108); Creatinine Clr Calc Pharmacy 120.9; Estimated Glomerular Filt Rate > 60; Glucose Random 122 mg/dL (60-115); Sodium 138 mmol/L (135-145); Total Protein 7.7 g/dL (6.5-8.0)
[2023-02-18 18:47] LABS: HCG Quantitative < 2 mIU/mL
--- NOTE | 2023-02-18 21:04 | P.HPHOSP_ITS ---
History of Present Illness Date of Service: 02/18/23 Chief Complaint: SOB 27-year-old female with past medical history of asthma poorly controlled, Crohn's disease, anxiety, PTSD, presents the hospital with complaints of shortness of breath. Patient reports that she has been struggling with asthma control over the last 1 year. She was supposed to start biologics but has had difficulty due to her homelessness. She is following with [facility] as well as with counseling department chair and plan for possible biopsy. States that for the past 2 weeks she has had increased shortness of breath, cough, and sputum production th at is mucus yellow colored. She also reports that she has had recurrent pneumonia last treatment for pneumonia about 2 months ago. She feels febrile and has chills, denies any headache or change in vision. She reports chest pain with coughing, some nausea no vomiting, no abdominal pain, irregular BMs due to her history of Crohn's, no urinary symptoms and no lower extremity edema. Symptoms worsen in the past 2 days, She states that she has been using her nebulizer every 1 hour for the past 2 days, and used her p.o. prednisone with minimal symptoms relief. On arrival to the ED patient noted to have heart rate of 123, respiratory rate of 26 otherwise stable Labs are reviewed and show no significant abnormality Chest x-ray negative for pneumonia Patient received multiple rounds of IV steroids, breathing treatments, and continues to have significant wheezing and shortness of breath Review of Systems Review of Systems: Yes all other systems are reviewed and are negative [facility] Medical History Anxiety Asthma Asthma Asthma Bipolar disorder COVID-19 Crohn's disease Depression GERD (gastroesophageal reflux disease) Opioid use disorder Pneumonia due to COVID-19 virus Pneumonitis PTSD (post-traumatic stress disorder) Family History Father Colon cancer Mother No problems noted. Brother Autism Sister Bipolar disorder Maternal Aunt Breast cancer Social History Household Members: Significant Other Housing: Other Housing Other:: motel Do you presently have visiting nurse or other home services: No Alcohol intake: unknown Patient Tobacco Use Status: Former Tobacco user Cigarette Packs Per Day: 0.33 Cigarettes Per Day: 6.6 Years Smoked: 9 e-Cigarette/Vaping Use: Former Use Second Hand Smoke Exposure: Yes Substance Use Type: Heroin Advance Directives: Yes Advance Directives on File: Yes Advance Directives Date on File: 05/07/21 service: No Current occupational status: unemployed Cognitive needs: No Hearing needs: No Vision needs: No Meds Allergies Allergy/AdvReac Type Severity Reaction Status Date / Time latex [LATEX] Allergy Intermediate RASH Verified 02/18/23 17:39 ondansetron [From Zofran] Allergy Intermediate Shortness Verified 02/18/23 17:39 of Breath propranolol Allergy Intermediate Shortness Verified 02/18/23 17:39 of Breath adhesive tape [ADHESIVE TAPE] AdvReac Intermediate RASH Verified 02/18/23 17:39 Home Medications Medication Instructions Recorded Confirmed Last Taken Type albuterol sulfate 90 mcg/actuation inhalation 02/18/23 Unknown History aerosol inhaler (Ventolin HFA) clonidine HCl 0.1 mg tablet 0.1 mg PO TID 02/18/23 Unknown History methadone 10 mg/mL oral concentrate 120 mg PO DAILY 02/18/23 Unknown History methocarbamol 750 mg tablet 750 mg PO BID 02/18/23 Unknown History Physical Exam Vital Signs and Narrative: Vital Signs: Last Vital Signs Temp 98.2 F 02/18/23 17:39 Pulse 101 H 02/18/23 18:06 Resp 23 H 02/18/23 18:06 BP 117/63 02/18/23 17:39 Pulse Ox 98 02/18/23 17:39 O2 Del Method Room Air 02/18/23 17:39 BMI result Body Mass Index 22.6 Const: General: cooperative and no acute distress Orientation/consciousness: patient oriented x3 Eyes: General: appearance normal, both eyes and all related structures Pupils: Equal, round and reactive pupils present Resp: Other: Significant expiratory wheezing bilaterally Effort & Inspection: normal respiratory effort Cardio: Rate: regular rate Rhythm: regular rhythm GI: Palpation (GI): Soft to palpation Auscultation: normal bowel sounds Skin: General skin exam: no rashes or lesions noted Neuro: General: patient oriented x3 Cranial nerves: Yes Equal, round and reactive pupils present Cognition (Neuro): normal cognition Extrem: General: Yes normal to inspection and Yes no pedal edema Results Labs 02/18/23 18:04 02/18/23 18:04 Labs: Laboratory Results - last 24 hr 02/18/23 02/18/23 02/18/23 18:04 18:04 18:04 MCV 84.9 MCH 28.0 MCHC 32.9 RDW 13.4 Plt Count 244 D MPV 9.9 Immature Gran % (Auto) 0.3 Neut % (Auto) 69.5 Lymph % (Auto) 17.4 L [place] % (Auto) 4.9 Eos % (Auto) 7.5 H Baso % (Auto) 0.4 Lymph # (Auto) 1.3 [place] # (Auto) 0.4 Eos # (Auto) 0.6 H Baso # (Auto) 0.0 Abs Immat Gran (auto) 0.02 Absolute Neuts (auto) 5.3 Absolute Nucleated RBC 0.000 Nucleated RBC % (auto) 0.0 Anion Gap 16 Estim Creat Clear Calc 120.9 Estimated GFR > 60 Random Glucose 122 H Lactic Acid 2.0 Calcium 9.9 Total Bilirubin 0.6 AST 19 ALT 17 Alkaline Phosphatase 86 Total Protein 7.7 Albumin 4.6 Beta HCG, Quant 02/18/23 18:04 MCV MCH MCHC RDW Plt Count MPV Immature Gran % (Auto) Neut % (Auto) Lymph % (Auto) [place] % (Auto) Eos % (Auto) Baso % (Auto) Lymph # (Auto) [place] # (Auto) Eos # (Auto) Baso # (Auto) Abs Immat Gran (auto) Absolute Neuts (auto) Absolute Nucleated RBC Nucleated RBC % (auto) Anion Gap Estim Creat Clear Calc Estimated GFR Random Glucose Lactic Acid Calcium Total Bilirubin AST ALT Alkaline Phosphatase Total Protein Albumin Beta HCG, Quant < 2 Imaging Radiologist's Impressions: Impressions Chest X-Ray 02/18/23 20:23 IMPRESSION: Unremarkable examination. Assessment and Plan (1) Severe asthma with exacerbation: Status: Acute Plan 27-year-old female with history of poorly controlled asthma comes into the hospital with asthma exacerbation # acute asthma exacerbation - no evidence of pneumonia - will start her on IV steroids, given the tachycardia will start on Xopenex p.r.n. as well as scheduled - monitor respiratory status # opioid use disorder - continue methadone # anxiety and PTSD - continue clonidine DVT prophylaxis: Early ambulation Time Spent With Patient Time: Total time managing care of this patient today ____ minutes. Quality Stroke Does the patient have a stroke diagnosis?: No VTE Prior VTE?: No VTE Risk Level:: Medical - moderate - high VTE Device Contraindication: Treatment Not Indicated VTE Drug Contraindication: N/A - Med Ordered
--- OUTSIDE RECORDS SUMMARY | 2023-02-18 21:10 | XMS_ITS | Continuity of Care Document ---
Author Name Unknown Organization [facility] ter Address [address] [place] [id number] Care Team Providers Care Jigman Name Role Phone Not on Staff, PCP Primary Care Physician Unavail able Encounter [facility] Date(s): 11/13/22 - 11/14/[address] [id number] Discharge Disposition: A-D/C Home Attending Physician: Joel Hamilton MD Admitting Physician: Joel Hamilton MD Referring Physician: Not on Staff, Referring MD Allergies, Adverse Reactions, Alerts Substance Reaction Severity Status Adhesive Bandage Unknown Active Latex Active Immunizations Given and Recorded Vaccine Date Status Refusal Reason SARS-CoV-2 (COVID-19) mRNA-1273 vaccine 05/23/22 R ecorded SARS-CoV-2 (COVID-19) mRNA-1273 vaccine 11/03/20 R ecorded SARS-CoV-2 (COVID-19) mRNA-1273 vaccine 10/05/20 R ecorded tetanus/diphtheria/pertussis, acel(Tdap) 01/27/18 Given Not Given Vaccine Date Status Refusal Reason influenza virus vaccine, inactivated 1 05/13/20 No t Given Parent Or Guardian Refuses 1Result Comment: Education provided Medications Advair Diskus 250 mcg-50 mcg inhalation powder See Instructions, 2 puffs Inhalation 2 times a day 30 days, # 1 each, Refills 0, Tot. Refills 0, Maintenance, 11/14/22 9:07:00 EDT, Instructions Replace Required Details Powder, Route to Pharmacy Electronically, [id number], C... Start Date: 11/14/22 Status: Ordered Aerochamber See Instructions, # 2 each, Maintenance, use with albuterol and symbicort inhalers, 03/14/19 19:35:42 EDT, Compound Start Date: 03/14/19 Status: Ordered albuterol 0.083% inhalation solution 3 mL = 2.5 mg, BAND Nebulizer, 4 times a day, PRN Wheezing/Shortness of Breath, # 100 each, 1 Refills, Maintenance, 03/05/21 9:09:00 EDT, Inhalation Solution, Partial fill upon patient request if theprescription is for a schedule II opioid drug., 165... Start Date: 03/05/21 Stop Date: 05/04/21 Status: Ordered cefpodoxime 200 mg oral tablet 1 tablet = 200 mg, By Mouth, Every 12 hours, for 4 days, # 8 tablet, 0 Refills, Acute 11/18/22 9:10:00 EDT, 11/14/22 9:10:00 EDT, Tablet, [facility]/pharmacy #[id number], Partial fill upon patient request if the prescription is for a schedule II opioid drug., 165,... Start Date: 11/14/22 Stop Date: 11/18/22 Status: Ordered clonazePAM 2 mg oral tablet 1 tablet = 2 mg, By Mouth, 2 times a day, # 6 tablet, 0 Refills, Maintenance, 11/14/22 9:07:00 EDT,Tablet, [facility]/pharmacy #[id number], Partial fill upon patient request if the prescription is for a scheduleII opioid drug., 165, cm, 11/14/22 8:14:00 EDT, Hei... Start Date: 11/14/22 Stop Date: 11/17/22 Status: Ordered cloNIDine 0.1 mg oral tablet 0.1 mg, 1, tablet, By Mouth, 3 times a day, PRN, Refills 0, Maintenance, Anxiety, 03/02/21 5:20:00 EDT, Partial fill upon patient request if the prescription is for a schedule II opioid drug. Start Date: 03/02/21 Status: Ordered cyclobenzaprine 5 mg oral tablet 1.5 tablet = 7.5 mg, By Mouth, 3 times a day, as needed, 0 Refills, Maintenance, 03/02/21 5:20:00 EDT, Tablet, Partial fill upon patient request if the prescription is for a schedule II opioid drug. Start Date: 03/02/21 Status: Ordered doxepin 10 mg oral capsule 1 capsule = 10 mg, By Mouth, Daily at bedtime, 0 Refills, Maintenance, 03/02/21 5:39:00 EDT, Partial fill upon patient request if the prescription is for a schedule II opioid drug. Start Date: 03/02/21 Status: Ordered gabapentin 100 mg oral capsule 400 mg, 4, capsule, By Mouth, 3 times a day, Refills 0, Maintenance, 03/02/21 5:35:00 EDT, Partial fill upon patient request if the prescription is for a schedule II opioid drug. Start Date: 03/02/21 Status: Ordered Melatonin 10 mg oral tablet 1 tablet = 10 mg, By Mouth, Daily at bedtime, 0 Refills, Maintenance, 03/02/21 18:58:00 EDT, Partial fill upon patient request if the prescription is for a schedule II opioid drug. Start Date: 03/02/21 Status: Ordered Methadone Tablet 110 mg, Tablet, By Mouth, 11/14/22 9:00:00 EDT Start Date: 11/14/22 Stop Date: 11/14/22 Status: Completed Narcan 4 mg/0.1 mL nasal spray See Instructions, 4 mg Naris, Left Once for, # 2 each, 0 Refills, Maintenance, 05/17/20 15:17:00 EDT Start Date: 05/17/20 Status: Ordered omeprazole 40 mg oral enteric coated capsule 1 capsule = 40 mg, By Mouth, Daily, # 30 capsule, 0 Refills, Maintenance, 03/02/21 18:45:00 EDT, ECCapsule, Partial fill upon patient request if the prescription is for a schedule II opioid drug. Start Date: 03/02/21 Status: Ordered predniSONE 20 mg oral tablet 2 tablet = 40 mg, By Mouth, Daily, # 10 tablet, 0 Refills, Soft Stop, 11/14/22 9:07:00 EDT, Tablet,[facility]/pharmacy #[id number], Partial fill upon patient request if the prescription is for a schedule II opioid drug., 165, cm, 11/14/22 8:14:00 EDT, Height, 68.... Start Date: 11/14/22 Stop Date: 11/19/22 Status: Ordered traZODone 50 mg oral tablet 50 mg, 1, tablet, By Mouth, Daily at bedtime, # 30 tablet, Refills 1, Tot. Refills 1, Maintenance, 03/14/19 19:37:33 EDT, Route to Pharmacy Electronically, [facility]/pharmacy #[id number] Start Date: 03/14/19 Stop Date: 05/13/19 Status: Ordered Problem List Condition Confirmation Course Effective Dates Status H ealth Status Informant Anxiety Confirmed Active Asthma, persistent, severity to be determined Confirmed Active Insomnia Confirmed Active Polysubstance abuse Confirmed Active PTSD (post-traumatic stress disorder) Confirmed Active Results Orders for Microbiology Reports Name Date Blood Culture 11/13/22 Blood Culture #2 11/13/22 Microbiology Reports TEST:Blood Culture STATUS:Unauthenticated BODY SITE: SOURCE:Blood COLLECTED DATE/TIME:11/13/22 11:05 AM Blood Culture SPECIMEN DESCRIPTION : BLOOD NO SITE SPECIAL REQUESTS : NONE CULTURE : NO GROWTH AFTER 24 HOURS REPORT STATUS : PRELIMINARY REPORT TEST:Blood Culture, Second Order STATUS:Unauthenticated BODY SITE: SOURCE:Blood COLLECTED DATE/TIME:11/13/22 11:05 AM Blood Culture, Second Order SPECIMEN DESCRIPTION : BLOOD NO SITE SPECIAL REQUESTS : NONE CULTURE : NO GROWTH AFTER 24 HOURS REPORT STATUS : PRELIMINARY REPORT Radiology Reports * Exam Date Time Procedure Performing Provider Status 11/13/22 11:36 AM Chest Portable Matthew Musa; Auth ( Verified) Notes: (Chest Portable) Reason For Exam: Shortness of Breath RESULT: Chest Portable Chest Portable INDICATION: Increased shortness of breath. Patient was seen at outside hospital yesterday and diagnosed with pneumonia. Reports using heroin and cocaine last night. COMPARISON: Multiple prior radiographs, most recent 09/10/2022. FINDINGS: LINES AND TUBES: None. LUNGS AND PLEURA: Hazy opacity at the right lower lobe, possibly secondary to atelectasis, superimposed pneumonia cannot be completely excluded. Normal pulmonary vascularity. No pleural effusion. No pneumothorax. HEART, MEDIASTINUM AND YESICA: Unchanged cardiomediastinal silhouette. BONES AND SOFT TISSUES: No acute abnormality. IMPRESSION: Hazy opacity at the right lower lobe, possibly secondary to atelectasis, superimposed pneumonia cannot be completely excluded. I have personally reviewed the images and I agree with this report. WSN: [id number] Ordering Physician: Anders Bah Dictated By: Roger Johns MD Dictated Date/Time: 11/13/22 11:48 a Reviewed By: Kasandra Paniagua MD Signed By: Kasandra Paniagua MD Signed Date/Time: 11/13/22 11:53 am Transcribed By: ARLINE Transcribed Date/Time: 11/13/22 11:42 am Vital Signs Most recent to oldest [Reference Range]: 1 2 3 Height 165 cm (11/14/22 8:14 AM) 165 cm (11/14/22 4:28 AM) 165 cm (11/13/22 11:29 PM) Weight 68.1 kg (11/13/22 4:18 PM) Oxygen Saturation [94-100 %] 95 % (11/14/22 8:14 AM) 94 % (11/14/22 4:28 AM) 97 % (11/13/22 11:29 PM) Pulse Rate [55-90 bpm] 81 bpm (11/14/22 8:14 AM) 75 bpm (11/14/22 4:28 AM) 78 bpm (11/13/22 11:29 PM) Body Mass Index [18.5-24.99 kg/m2] 25.01 kg/m2 *H* (11/13/22 4:18 PM) Blood Pressure [90-138/55-84 mm Hg] 117/75mm Hg (11/14/22 8:14 AM) 120/63mm Hg (11/14/22 4:28 AM) 99/58mm Hg (11/13/22 11:29 PM) Respiratory Rate [16-30 br/min] 18 br/min (11/14/22 9:22 AM) 18 br/min (11/14/22 8:22 AM) 16 br/min (11/14/22 8:14 AM) Temperature [96.8-100.4 DegF] 98.1 DegF (11/14/22 8:14 AM) 98 DegF (11/14/22 4:28 AM) 97 DegF (11/13/22 11:29 PM) Mode of Delivery (Oxygen) Room air (11/14/22 8:14 AM) Room air (11/14/22 4:28 AM) Room air (11/13/22 11:29 PM) Blood pressure sites Arm, right (11/14/22 8:14 AM) Arm, right (11/14/22 4:28 AM) Arm, right (11/13/22 11:29 PM) Temperature Route Oral (11/14/22 8:14 AM) Oral (11/14/22 4:28 AM) Oral (11/13/22 11:29 PM) Dry Weight 68.1 kg (11/13/22 4:18 PM) Weight Obtained Via Bed scale (11/13/22 4:18 PM) Dry Weight Obtained Via Bed scale (11/13/22 4:18 PM) Social History Social History Type Response Smoking Status 10 or more cigarette s (1/2 pack or more)/day in last 30 days entered on: 08/21/20 Sex Admission evaluation note * Alfonso MACKEY, Joel Gallegos: PERFORM, MODIFY Event Display: Admission Note Authored Date: Patient: ??JACIEL MONAE ? Age:??27 Years?Sex:??Female?:??1995?? Chief Complaint/Reason for Consultation methadone clinic this morning c/o SOB/ used heroin and coccaine last night. Recent dx of PNA and RSV. Right flank pain History of Present Illness 27 years old??female with medical??history of??opioid use disorder, asthma,??IV drug use, cocaine use,??anxiety, PTSD, opioid dependence??on methadone. ??Current fentanyl??usage,??homelessness, Patient presented to the ER for ??shortness of breath and wheezing and a cough for few days. ??Patient admits of using??heroin and??fentanyl on top of fentanyl??because??of her methadone??wears off. ??Alsocomplains of subjective fevers. ?? On arrival to ED she was febrile to 101.3 Tachycardia 115, saturating??96% on room air. ?? Labs??done??showed??blood gas??7.42/38, WBC 93,??hemoglobin 10.2,??platelet count??190,??D-dimer 1.53 BUN/creatinine??5/0.6,??CK2 23,??proBNP 180,??troponin negative,??serum test negative,??opioid positive,??influenza negative, COVID-negative ekg sinus tachy, QTC Calculation(Bazett): 445 ??ms incomplete RBBB CXR: Hazy opacity at the right lower lobe, possibly secondary to atelectasis, superimposed pneumonia cannot be completely excluded ?? She had a recent??treatment with pneumonia? In the ER she got??1 L of??NS,??started on ceftriaxone and doxycycline Review of Systems Constitutional:??No weight loss, fever, chills, weakness or fatigue. HEENT:??No visual loss, blurred vision, double vision or yellow sclera. No hearing loss,?? Skin:??No rash or itching. Cardiovascular:?? as above Gastrointestinal:??No anorexia, nausea, vomiting or diarrhea. No abdominal pain or blood in stool. Genitourinary:??No burning micturition. No urinary frequency or incontinence. Neurologic:??No headache, dizziness, syncope, unilateral weakness, ataxia, numbness or tingling in the extremities. No change in bowel or bladder control. Musculoskeletal:??No muscle pain, back pain, joint pain or stiffness. Endocrine:??No reports of sweating. No cold or heat intolerance. No polyuria or polydipsia. Objective Vital Signs?? Temperature: 97.8 DegF (11/13/22 14:39:00) Temperature Route: Oral (11/13/22 14:39:00) Pulse Rate: 77 bpm (11/13/22 14:39:00) Respiratory Rate: 16 br/min (11/13/22 14:39:00) Systolic Blood Pressure: 102 mm Hg (11/13/22 14:39:00) Diastolic Blood Pressure: 65 mm Hg (11/13/22 14:39:00) Blood pressure sites: Arm, left (11/13/22 14:39:00) Mean Arterial Pressure: 78 mm Hg (11/13/22 10:56:00) Pulse Pressure: 45 mm Hg (11/13/22 10:56:00) Oxygen Saturation: 96 % (11/13/22 14:39:00) Mode of Delivery (Oxygen): Room air (11/13/22 14:39:00) End Tidal CO2: 40 mm Hg (11/13/22 10:44:00) Early Warning Score: 3 (11/13/22 14:40:26) ? Intake/Output? No Data Available ? Aretha Coma Scale Aretha Coma Score: 15 (11/13/22 10:56:00) Motor Response-Adult: Obeys commands (11/13/22 10:56:00) Response Eye Opening: Spontaneously (11/13/22 10:56:00) Verbal Response-Adult: Oriented and converses (11/13/22 10:56:00) ? Physical Exam Constitutional: Alert, in no acute distress. somnolent Head EENT: Extraocular muscle movement intact.??Moist mucous membranes.?? Neck: Supple. No JVD. Respiratory: Clear to auscultation. b/l ronchii Cardiovascular: S1S2 regular. No murmurs, rubs or gallops. Gastrointestinal: Abdomen soft, non-tender, non-distended. Normal bowel sounds. Genitourinary: No CVA tenderness. Extremities: No lower extremity pitting??edema. No cyanosis or clubbing. Neurologic: AAOx3, Speech normal. No focal neurological deficits. ??Psychiatric: Normal mood and affect Assessment/Plan Diagnoses Asthma exacerbation ??(J45.901) CAP (community acquired pneumonia) ??(J18.9) ?? 27 years old??female with medical??history of??opioid use disorder, asthma,??IV drug use, cocaine use,??anxiety, PTSD, opioid dependence??on methadone. ??Current fentanyl??usage,??homelessness,?? t presented to the ER for ??shortness of breath and wheezing and a cough for few days admitted for commu nity-acquired pneumonia??and??asthma??exacerbation ?? Assessment/plan ?? Committee acquired pneumonia: We will start??ceftriaxone and doxycycline Check Pro-Albert, proBNP and D-dimer??to rule out other causes ?? ASthma Exacerbation DuoNebs every 6 hours??scheduled and as needed for wheezing Start prednisone 40 daily Monitor peak flow On Symbicort at home, continue??Breo elliptica??while inpatient ?? PTSD/anxiety/depression Continue clonazepam??2 mg??twice daily,?? , she doesn't have list of medicatoin. rest medication need to be reconcilled ?? Opioid use disorder/opioid dependence/methadone dependence Patient is actively using fentanyl and heroin??on top of methadone??110??mg daily She is drowsy??right now Plan: We will give??methadone 40??in the evening??today And start??her regular dose of methadone 110??daily ?? DVT prophylaxis Lovenox CODE STATUS full Diet regular ? Discharge Planning:? tommorrow Histories Allergies Allergies ?(Active and Proposed Allergies Only) Latex? (Severity: Unknown severity, Onset: Unknown) Adhesive Bandage? (Severity: Unknown, Onset: Unknown) ? Past Medical History/Problem List Active Problems??(7) Anxiety Asthma, persistent, severity to be determined Cervical lymphadenopathy Insomnia Polysubstance abuse PTSD (post-traumatic stress disorder) Underweight ? Past Surgical History Extraction of wisdom tooth ? Social History Alcohol Details:??Use: Never. Employment/School Details:??Status: Employed. 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 ??Previous employment/school: Graduated from [employer]. ??Highest education level: Some college. Home/Environment Details:??Living situation: Home/Independent. ??Lives with: Father, Mother. ??Feels unsafe at home:No. ??Smoker in household: Yes. Substance Abuse Details:??Use: Past. ??Type: Cocaine, Heroin, Marijuana. ??Substance abuse in household: Yes. ??Other: Patient wishes to keep substance abuse treatment private from parents. see SW note from 02/03/2019 for more details. ??IV drug use: No. ??Previous treatment: Treatment center. Tobacco Details:??Use: 10 or more cigarettes (1/2 pack or more)/day in last 30 days. ? Family History Father: Alcoholism; GERD - Gastro-esophageal reflux disease; PUD - Peptic ulcer disease; Pancreaticcancer; Substance abuse ? Medications Home Medications Albuterol (albuterol 0.083% inhalation solution)?3?Milliliter?2.5?Milligram?BAND Nebulizer?4 times a day?as needed?Wheezing/Shortness of Breath?for 30?Days Albuterol (Albuterol (Eqv-ProAir HFA) 90 mcg/inh inhalation aerosol)?2?puff(s)?Inhalation?Every 6 hours?as needed?Wheezing/Shortness of Breath Budesonide-Formoterol (Symbicort 80mcg/4.5mcg Inhaler)?2?puff(s)?Inhalation?2 times a day?rinse mouth and throat after use Clonazepam (clonazePAM 2 mg oral tablet)?1?tab(s)?2?Milligram?By Mouth?2 times a day Clonidine (cloNIDine 0.1 mg oral tablet)?0.1?Milligram?1?tablet?By Mouth?3 times a day?as needed?Anxiety Cyclobenzaprine (cyclobenzaprine 5 mg oral tablet)?1.5?tab(s)?7.5?Milligram?By [...] oral tablet)?50?Milligram?1?tablet?By Mouth?Daily at bedtime?for 30?Days ? Inpatient Medications Medications (25) Active SCHEDULED: (11) Albuterol/Ipratropium Inhalation Sobia 3mL (Duoneb Inhalation Solution) ??1 vials, BAND Nebulizer, 4 times a day Ceftriaxone 1 Gm Inj (Ceftriaxone Inj) ??1 Gm, IVPB, Every 24 hours Clonazepam 1 mg Tablet (clonazePAM 1 mg oral tablet) ??2 mg, By Mouth, 2 times a day Doxycycline 100 mg Tablet (Doxycycline Tablet) ??100 mg, By Mouth, Every 12 hours Methadone 10 mg Tablet (Methadone Tablet) ??40 mg, By Mouth, Once Methadone 10 mg Tablet (Methadone Tablet) ??110 mg, By Mouth, Daily NaCl 0.9% Flush 3ml (NaCL 0.9% Flush) ??3 mL, IV Push, Every 8 hours NaCl 0.9% Flush 3ml (NaCL 0.9% Flush) ??3 mL, IV Push, Every 8 hours Pantoprazole 20 mg EC Tablet (pantoprazole 20 mg oral delayed release tablet) ??20 mg, By Mouth, Daily PredniSONE 20 mg Tablet (predniSONE 20 mg oral tablet) ??40 mg, By Mouth, Daily Trazodone 50 mg Tablet (traZODone 50 mg oral tablet) ??50 mg, By Mouth, Daily at bedtime CONTINUOUS: (1) Lactated Ringers (1000 mL) Cont IV 1,000 mL (Bolus LR 1,000 mL) ??1,000 mL, IV Infusion PRN: (13) Acetaminophen 325 mg Tablet (Acetaminophen Tablet) ??650 mg, By Mouth, Every 4 hours Albuterol/Ipratropium Inhalation Sobia 3mL (Duoneb Inhalation Solution) ??1 vials, BAND Nebulizer, Every 4 hours Dextromethorphan-Guaifenesin 20 mg-200 mg/10 mL Liqu UD (Robitussin DM Liquid) ??10 mL, By Mouth, Every 4 hours Dextromethorphan-Guaifenesin 20 mg-200 mg/10 mL Liqu UD (Robitussin DM Liquid) ??10 mL, By Mouth, Every 4 hours Melatonin 3 mg Tablet (Melatonin Tablet) ??3 mg, By Mouth, Daily at bedtime NaCl 0.9% Flush 3ml (NaCL 0.9% Flush) ??3 mL, IV Push, Every 8 hours NaCl 0.9% Flush 3ml (NaCL 0.9% Flush) ??3 mL, IV Push, Every 8 hours nalOXONE ??400mcg/mL Inj (nalOXONE Inj) ??0.2 mg 0.5 mL, IV Push, Every 5 minutes Polyethylene Glycol 17 Gm Powder (MiraLax Powder) ??17 Gm 1 pack/packet, By Mouth, Daily Polyethylene Glycol 17 Gm Powder (MiraLax Powder) ??17 Gm 1 pack/packet, By Mouth, Daily Senna 8.6 mg / Docusate 50 mg tablet (Docusate/Senna Tablet) ??1 tablet, By Mouth, 2 times a day Senna 8.6 mg / Docusate 50 mg tablet (Docusate/Senna Tablet) ??1 tablet, By Mouth, 2 times a day Simethicone 80 mg Chewable Tablet (Simethicone Tablet) ??80 mg, Chew, 3 times a day ? Results ? LFT Albumin: 4.1 Gm/dL (11:05) Alkaline Phosphatase: 76 units/L (11:05) ALT (SGPT): 32 units/L (11:05) AST (SGOT):??35 units/L??High (11:05) Bilirubin, Direct: <0.2 (11:05) Bilirubin, Indirect: Direct bilirubin is less than the measureable limit. Therefore, indirect (11:05) Bilirubin, Total: 0.7 mg/dL (11:05) ?? Urinalysis Albumin, Urine: 1+ Abnormal (15:00) Appear/Color, Urine: YELLOW (15:00) Bilirubin, Urine: NEGATIVE (15:00) Glucose, Urine: 3+ Abnormal (15:00) Hemoglobin, Urine: NEGATIVE (15:00) Hold Urine Culture: Testing available 48 hours from time of collection. (15:00) Hyaline Cast: 1 LPF (15:00) Ketones, Urine: 1+ Abnormal (15:00) Leukocyte, Urine: NEGATIVE (15:00) Mucus: SLIGHT (15:00) Nitrite, Urine: NEGATIVE (15:00) pH, Urine: 6 (15:00) RBC's, Urine: 2 /HPF (15:00) Renal Epith: <1 (15:00) Specific [place], Urine: 1.021 (15:00) Squamous Epith: 4 /HPF (15:00) Urobilinogen: 2 mg/dL Abnormal (15:00) WBC's, Urine: 1 /HPF (15:00) ?? Microbiology ?? COVID-19, RSV, and Flu A/B, Rapid PCR?? Completed?? Source: Nasal Body Site: Nose Collected Dt/Tm: 11/13/2022 10:42 Last Updated Dt/Tm: 11/13/2022 13:30 ? Cardiology Labs CK, Total:??223 units/L??High (11/13/22 11:05:00) Nt-Probnp:??180 pg/mL??High (11/13/22 11:05:00) High Sensitivity Troponin (HSTnT): <6 (11/13/22 11:05:00) ?? Blood Gases Specimen Type - Blood Gas: VENOUS (11:40) pH, Venous: 7.42 (11:40) pCO2, Venous:??38 mm Hg??Low (11:40) pO2, Venous:??60 mm Hg??High (11:40) Bicarbonate, Estimated(Venous): 24 mmol/L (11:40) ?? EKG study * Event Display: ECG 12-Lead Authored Date: Please click on pdf link to open report * Event Display: ECG 12-Lead Authored Date: Ventricular Rate: 102 BPM Atrial Rate: 102 BPM P-R Interval: 146 ms QRS Duration: 94 ms Q-T Interval: 342 ms QTC Calculation(Bazett): 445 ms P Assumption: 67 degrees R Assumption: 41 degrees T Assumption: 52 degrees Sinus tachycardia Incomplete right bundle branch block Borderline ECG When compared with ECG of 12-SEP-2022 16:06, No significant change was found Confirmed by EB CISSE MD ([id number]) on 11/13/2022 1:05:21 PM [place]: EB CISSE MD Note * Shoshana Rodriguez RN: PERFORM Event Display: Discharge/Transfer Note Hospital Authored Date: Nursing Discharge Note Entered On: 11/14/2022 10:16 EDT Performed On: 11/14/2022 10:16 EDT by Shoshana Rodriguez RN Nursing Discharge Note 2 Discharge Time : 11/14/2022 9:45 EDT Discharge Level of Care at Discharge : Home/Fdc/Foster Care Patient Left Unit Via : Wheelchair Patient Accompanied Off Unit with : Responsible adult DC Instructions Provided & Signed by Pt : Yes Patient Understands D/C Instructions : Yes Patient Instructions Discharge Signed : Yes Did Pt have Specialty Bed or Wound Vac : No Shoshana Rodriguez RN - 11/14/2022 10:16 EDT * Joel Hamilton MD K: PERFORM Event Display: Discharge/Transfer Note Hospital Authored Date: Patient: ??DOV, JACIEL ? Age:??27 Years?Sex:??Female?:??1995?? Patient Information Discharge Location: B Primary Care Physician: Not on Staff, PCP Admit Date/Time: 11/13/22 10:29 Discharge Disposition Discharge Disposition: ?? Discharge Diagnosis Asthma exacerbation (J45.901) CAP (community acquired pneumonia) (J18.9) ?? _ Discharge Medications Albuterol (albuterol 0.083% inhalation solution)?3?Milliliter?2.5?Milligram?BAND Nebulizer?4 times a day?as needed?Wheezing/Shortness of Breath?for 30?Days Cefpodoxime (cefpodoxime 200 mg oral tablet)?1?tab(s)?200?Milligram?By Mouth?Every 12 hours?for 4?Days Clonazepam (clonazePAM 2 mg oral tablet)?1?tab(s)?2?Milligram?By Mouth?2 times a day?for 3?Days Clonidine (cloNIDine 0.1 mg oral tablet)?0.1?Milligram?1?tablet?By Mouth?3 times a day?as needed?Anxiety Cyclobenzaprine (cyclobenzaprine 5 mg oral tablet)?1.5?tab(s)?7.5?Milligram?By Mouth?3 times a day?as needed Doxepin (doxepin 10 mg oral capsule)?1?capsule?10?Milligram?By Mouth?Daily at bedtime Durable Medical Equipment (Aerochamber)?See Instructions?use with albuterol and symbicort inhalers Fluticasone-Salmeterol (Advair Diskus 250 mcg-50 mcg inhalation powder)?See Instructions?2 puffs Inhalation 2 times a day 30 days Gabapentin (gabapentin 100 mg oral capsule)?400?Milligram?4?capsule?By Mouth?3 times a day Melatonin (Melatonin 10 mg oral tablet)?1?tab(s)?10?Milligram?By Mouth?Daily at bedtime nalOXONE (Narcan 4 mg/0.1 mL nasal spray)?See Instructions?4 mg Naris, Left Once for Omeprazole (omeprazole 40 mg oral enteric coated capsule)?1?capsule?40?Milligram?By Mouth?Daily PredniSONE (predniSONE 20 mg oral tablet)?2?tab(s)?40?Milligram?By Mouth?Daily?for 5?Days Trazodone (traZODone 50 mg oral tablet)?50?Milligram?1?tablet?By Mouth?Daily at bedtime?for 30?Days ? Quality Measures Tobacco Use Treatment:? Inpatient Medications Medications (23) Active SCHEDULED: (10) Albuterol/Ipratropium Inhalation Sobia 3mL (Duoneb Inhalation Solution) ??1 vials, BAND Nebulizer, 4 times a day Ceftriaxone 1 Gm Inj (Ceftriaxone Inj) ??1 Gm, IVPB, Every 24 hours Clonazepam 1 mg Tablet (clonazePAM 1 mg oral tablet) ??2 mg, By Mouth, 2 times a day Doxycycline 100 mg Tablet (Doxycycline Tablet) ??100 mg, By Mouth, Every 12 hours Methadone 10 mg Tablet (Methadone Tablet) ??40 mg, By Mouth, Once Methadone 10 mg Tablet (Methadone Tablet) ??110 mg, By Mouth, Daily NaCl 0.9% Flush 3ml (NaCL 0.9% Flush) ??3 mL, IV Push, Every 8 hours NaCl 0.9% Flush 3ml (NaCL 0.9% Flush) ??3 mL, IV Push, Every 8 hours Pantoprazole 20 mg EC Tablet (pantoprazole 20 mg oral delayed release tablet) ??20 mg, By Mouth, Daily PredniSONE 20 mg Tablet (predniSONE 20 mg oral tablet) ??40 mg, By Mouth, Daily CONTINUOUS: (0) PRN: (13) Acetaminophen 325 mg Tablet (Acetaminophen Tablet) ??650 mg, By Mouth, Every 4 hours Albuterol/Ipratropium Inhalation Sobia 3mL (Duoneb Inhalation Solution) ??1 vials, BAND Nebulizer, Every 4 hours Dextromethorphan-Guaifenesin 20 mg-200 mg/10 mL Liqu UD (Robitussin DM Liquid) ??10 mL, By Mouth, Every 4 hours Dextromethorphan-Guaifenesin 20 mg-200 mg/10 mL Liqu UD (Robitussin DM Liquid) ??10 mL, By Mouth, Every 4 hours Melatonin 3 mg Tablet (Melatonin Tablet) ??3 mg, By Mouth, Daily at bedtime NaCl 0.9% Flush 3ml (NaCL 0.9% Flush) ??3 mL, IV Push, Every 8 hours NaCl 0.9% Flush 3ml (NaCL 0.9% Flush) ??3 mL, IV Push, Every 8 hours nalOXONE ??400mcg/mL Inj (nalOXONE Inj) ??0.2 mg 0.5 mL, IV Push, Every 5 minutes Polyethylene Glycol 17 Gm Powder (MiraLax Powder) ??17 Gm 1 pack/packet, By Mouth, Daily Polyethylene Glycol 17 Gm Powder (MiraLax Powder) ??17 Gm 1 pack/packet, By Mouth, Daily Senna 8.6 mg / Docusate 50 mg tablet (Docusate/Senna Tablet) ??1 tablet, By Mouth, 2 times a day Senna 8.6 mg / Docusate 50 mg tablet (Docusate/Senna Tablet) ??1 tablet, By Mouth, 2 times a day Simethicone 80 mg Chewable Tablet (Simethicone Tablet) ??80 mg, Chew, 3 times a day ? Durable Medical Equipment CPAP/BiPAP Mask Type: Full (09/11/22) CPAP/BiPAP Mask Size: Medium (09/11/22) ? Allergies Allergies ?(Active and Proposed Allergies Only) Latex? (Severity: Unknown severity, Onset: Unknown) Adhesive Bandage? (Severity: Unknown, Onset: Unknown) ? Objective Assessment and Plan Assessment:??27 years old female with medical history of opioid use disorder, asthma, IV drug use, cocaine use, anxiety, PTSD, opioid dependence on methadone. Current fentanyl usage, homelessness,?presented to the ER for shortness of breath and wheezing and a cough for few days admitted for community-acquired pneumonia and asthma exacerbation ?? Assessment/plan ?? Committee acquired pneumonia: s/p ceftriaxone and doxy in patient will discharge on cefpodoxime 200 mg bid for 4 more days. ?? ASthma Exacerbation discharge on maintenance advair and prednisone 40 for 5 days and rescue albuterol ?? PTSD/anxiety/depression ??Continue clonazepam 2 mg twice daily,?(??3 days prescription given) rest to be given by pcp ? Opioid use disorder/opioid dependence/methadone dependence received last dose of methadone 110mg on 11/14/2022 at 9am ? Vital Signs?? Temperature: 98.1 DegF (11/14/22 08:14:00) Temperature Route: Oral (11/14/22 08:14:00) Pulse Rate: 81 bpm (11/14/22 08:14:00) Respiratory Rate: 18 br/min (11/14/22 08:22:00) Systolic Blood Pressure: 117 mm Hg (11/14/22 08:14:00) Diastolic Blood Pressure: 75 mm Hg (11/14/22 08:14:00) Blood pressure sites: Arm, right (11/14/22 08:14:00) Mean Arterial Pressure: 89 mm Hg (11/14/22 08:14:00) Pulse Pressure: 42 mm Hg (11/14/22 08:14:00) Oxygen Saturation: 95 % (11/14/22 08:14:00) Mode of Delivery (Oxygen): Room air (11/14/22 08:14:00) End Tidal CO2: 40 mm Hg (11/13/22 10:44:00) Early Warning Score: 3 (11/14/22 08:24:25) ? . Physical Exam Constitutional: Alert, in no acute distress. Head EENT: Extraocular muscle movement intact.??Moist mucous membranes.?? Neck: Supple. No JVD. Respiratory: Clear to auscultation. mild wheeing b/l Cardiovascular: S1S2 regular. No murmurs, rubs or gallops. Gastrointestinal: Abdomen soft, non-tender, non-distended. Normal bowel sounds. Genitourinary: No CVA tenderness. Extremities: No lower extremity pitting??edema. No cyanosis or clubbing. Neurologic: AAOx3, Speech normal. No focal neurological deficits. Skin: No rash. Psychiatric: Normal mood and affect Pending Results Add On Lab Order ordered on 11/13/2022 Blood Culture ordered on 11/13/2022 Blood Culture #2 ordered on 11/13/2022 CBC ordered on 11/14/2022 COVID-19 (2019 Novel Coronavirus) PCR ordered on 11/14/2022 Comprehensive Metabolic Panel ordered on 11/14/2022 Magnesium Level ordered on 11/14/2022 Follow-Up Appointments Added Follow Up ?Time Frame ?Comments Not on Staff, PCP Patient Instructions patient should follow pcp in 1 week of discharge. a referral to pulmonary to be given by pcp for better asthma controll Post Discharge Care Condition: stable Discharge ?11/14/22 9:21:00 EDT Home Health Face to Face ^HomeHealthFTF Results Discharge Labs BLOOD COUNT & DIFF WBC 9.3 k/mm3 ()?? 11/13/2022 11:05 RBC 3.63 m/mm3 (Low)?? 11/13/2022 11:05 Hgb 10.2 Gm/dL (Low)?? 11/13/2022 11:05 Hct 30.7 % (Low)?? 11/13/2022 11:05 MCV 84.6 femtoliters ()?? 11/13/2022 11:05 MCH 28.1 pg ()?? 11/13/2022 11:05 MCHC 33.2 g/dL ()?? 11/13/2022 11:05 Platelet Count 190 k/mm3 ()?? 11/13/2022 11:05 RDW-SD 44.4 femtoliters ()?? 11/13/2022 11:05 MPV 10.0 femtoliters ()?? 11/13/2022 11:05 Nucleated RBC (Automated) 0.0 #/100 WBC'S ()?? 11/13/2022 11:05 Abs. NRBC 0.0 k/mm3 ()?? 11/13/2022 11:05 Abs. Neut 7.2 k/mm3 (High)?? 11/13/2022 11:05 Abs. Lymph 1.2 k/mm3 ()?? 11/13/2022 11:05 Abs. Ware 0.9 k/mm3 ()?? 11/13/2022 11:05 Abs. Eo 0.0 k/mm3 ()?? 11/13/2022 11:05 Abs. Baso 0.0 k/mm3 ()?? 11/13/2022 11:05 Neut % 77.4 % (High)?? 11/13/2022 11:05 Lymph % 12.9 % (Low)?? 11/13/2022 11:05 Ware % 9.1 % ()?? 11/13/2022 11:05 Eos % 0.0 % ()?? 11/13/2022 11:05 Baso % 0.1 % ()?? 11/13/2022 11:05 Imm Gran 0.5 % ()?? 11/13/2022 11:05 Abs. Imm Gran 0.1 k/mm3 ()?? 11/13/2022 11:05 ?? BLOOD GAS Specimen Type - Blood Gas VENOUS ()?? 11/13/2022 11:40 pH, Venous 7.42 ()?? 11/13/2022 11:40 pCO2, Venous 38 mm Hg (Low)?? 11/13/2022 11:40 pO2, Venous 60 mm Hg (High)?? 11/13/2022 11:40 Bicarbonate, Estimated(Venous) 24 mmol/L ()?? 11/13/2022 11:40 ? CARDIAC CK, Total 223 units/L (High)?? 11/13/2022 11:05 Nt-Probnp 180 pg/mL (High)?? 11/13/2022 11:05 High Sensitivity Troponin (HSTnT) <6 ng/L ()?? 11/13/2022 11:05 ? CHEM GENERAL Sodium 134 mmol/L ()?? 11/13/2022 11:05 Potassium 3.7 mmol/L ()?? 11/13/2022 11:05 Chloride 99 mmol/L ()?? 11/13/2022 11:05 Bicarbonate Level 23 mmol/L ()?? 11/13/2022 11:05 Anion Gap 12 ()?? 11/13/2022 11:05 Glucose Level 102 mg/dL (High)?? 11/13/2022 11:05 BUN 5 mg/dL (Low)?? 11/13/2022 11:05 Creatinine-Blood 0.6 mg/dL ()?? 11/13/2022 11:05 Estimated GFR Creatinine 129 ML/MIN/1.73 M2 ()?? 11/13/2022 11:05 Calcium 8.6 mg/dL ()?? 11/13/2022 11:05 Protein, Total 6.2 Gm/dL ()?? 11/13/2022 11:05 Albumin 4.1 Gm/dL ()?? 11/13/2022 11:05 Alkaline Phosphatase 76 units/L ()?? 11/13/2022 11:05 AST (SGOT) 35 units/L (High)?? 11/13/2022 11:05 ALT (SGPT) 32 units/L ()?? 11/13/2022 11:05 Bilirubin, Total 0.7 mg/dL ()?? 11/13/2022 11:05 Bilirubin, Direct <0.2 mg/dL ()?? 11/13/2022 11:05 Bilirubin, Indirect Direct bilirubin is less than the measureable limit. Therefore, indirect mg/dL ()?? 11/13/2022 11:05 Lactate 1.1 mmol/L ()?? 11/13/2022 11:05 C-Reactive Protein 22.2 mg/dL (High)?? 11/13/2022 11:05 ?? COAG D-Dimer 1.53 mg/L FEU (High)?? 11/13/2022 11:05 ? ENDOCRINE/TUMOR MARKER TSH 0.56 uIU/mL ()?? 11/13/2022 11:05 Serum Qual NEGATIVE mIU/mL ()?? 11/13/2022 11:05 ?? HEME OTHER Hold Blue Top SPECIMEN DISCARDED AFTER 4 HOURS. ()?? 11/13/2022 11:05 ? MISC. CHEMISTRY Procalcitonin 0.34 ng/mL ()?? 11/13/2022 11:05 ? UA/URINALYSIS Appear/Color, Urine YELLOW ()?? 11/13/2022 15:00 Specific [place], Urine 1.021 ()?? 11/13/2022 15:00 pH, Urine 6.0 ()?? 11/13/2022 15:00 Albumin, Urine 1+ (Abnormal)?? 11/13/2022 15:00 Glucose, Urine 3+ (Abnormal)?? 11/13/2022 15:00 Ketones, Urine 1+ (Abnormal)?? 11/13/2022 15:00 Bilirubin, Urine NEGATIVE ()?? 11/13/2022 15:00 Hemoglobin, Urine NEGATIVE ()?? 11/13/2022 15:00 Nitrite, Urine NEGATIVE ()?? 11/13/2022 15:00 Leukocyte, Urine NEGATIVE ()?? 11/13/2022 15:00 Urobilinogen 2 mg/dL (Abnormal)?? 11/13/2022 15:00 WBC's, Urine 1 /HPF ()?? 11/13/2022 15:00 RBC's, Urine 2 /HPF ()?? 11/13/2022 15:00 Squamous Epith 4 /HPF ()?? 11/13/2022 15:00 Renal Epith <1 /HPF ()?? 11/13/2022 15:00 Hyaline Cast 1 LPF ()?? 11/13/2022 15:00 Mucus SLIGHT /LPF ()?? 11/13/2022 15:00 Hold Urine Culture Testing available 48 hours from time of collection. ()?? 11/13/2022 15:00 ?? VIROLOGY Influenza A PCR NEGATIVE ()?? 11/13/2022 11:30 Influenza B PCR NEGATIVE ()?? 11/13/2022 11:30 RSV PCR NEGATIVE ()?? 11/13/2022 11:30 COVID-19 PCR Specimen Source NASAL ()?? 11/13/2022 11:30 COVID-19 PCR Result NEGATIVE ()?? 11/13/2022 11:30 ? Microbiology ?? COVID-19, RSV, and Flu A/B, Rapid PCR?? Completed?? Source: Nasal Body Site: Nose Collected Dt/Tm: 11/13/2022 10:42 Last Updated Dt/Tm: 11/13/2022 13:30 ? 31_ minutes spent on discharge * Shoshana Rodriguez RN: PERFORM Event Display: Patient Education/Instruction Authored Date: [id number] Inpatient Adult Discharge Instructions [address] [address] Name: JACIEL MONAE : 1995 Visit: 11/13/2022 10:29:00 Current Date: 11/14/2022 09:36 Account: [id number] Inpatient Adult Discharge Instructions We would like to thank you for allowing us to assist you with your healthcare needs. The following includes patient education materials and information regarding your injury/illness. Our entire staffstrives to provide an excellent experience for our patients and their families. PLEASE ENSURE YOU FOLLOW-UP PER THE INSTRUCTIONS BELOW! ?? YOUR OPINION IS IMPORTANT TO US! Please complete the survey you may receive by mail or email. Your feedback will be used to make improvements to the healthcare experiences of our patients and their families. Surveys are administered by [employer] ?? If further treatment with your primary care physician or another doctor is recommended, it is important for you to keep the appointment. Call your primary care physician or return to the Emergency Department immediately if your condition worsens, fails to improve, or new symptoms develop. If you need to find a doctor, you can call [facility] for a referral at [phone] or toll free at [phone] ([phone]) or log in to [email or web address].. ?? You can view and manage your care through the patient portal or by using a health care jaz of your choosing. [employer] is a website that allows you to securely view your medical information including your hospital discharge summary, office visit summaries, medications and follow-up visits. You can also request appointments, renew medications, and request access to your medical information using a health care jaz of your choosing, or just ask a question. You can enroll at [email or web address] or register during your next office visit. You have been discharged from [facility], Patient Care Unit: D3B. If you have any questions regarding these instructions after you leave, please call us and we will be happy to assist you. [facility] Your Care Team Attending Physician Joel Hamilton MD Discharging Providers Joel Hamilton MD Reason for Admission methadone clinic this morning c/o SOB/ used heroin and coccaine last night. Recent dx of PNA and RSV. Right flank pain Your Diagnosis Asthma exacerbation CAP (community acquired pneumonia) Tests Performed Below is a partial list of the tests performed during your hospitalization. You may have had other tests and procedures not included in this list. Please discuss all test results with your provider. Basic Metabolic Panel BLOOD GAS, VENOUS C-REACTIVE PROTEIN CBC w/ Differential COVID-19, RSV, and Flu A/B, Rapid PCR CPK Total Only D-DIMER Hepatic Function Panel High??Sensitivity??Troponin T Hold Blue Top Tube Lactic Acid Level Serum Qualitative ProBNP PROCALCITONIN, SERUM TSH with T4 Reflex (Adults Only) Urinalysis w/hold for Urine Culture XR Chest Portable Primary Care Provider Not on Staff, PCP Advance Directive Health Care Proxy on File Yes - Health Care Proxy Discharge Vitals Temperature: 98.1 DegF Height: 165 cm Pulse Rate: 81 bpm Weight: 68.1 kg Respiratory Rate: 18 br/min Body Mass Index:??25.01 kg/m2??High Systolic Blood Pressure: 117 mm Hg Body surface area: 1.77 Diastolic Blood Pressure: 75 mm Hg ?? Oxygen Saturation: 95 % ?? Studies Pending All tests and labs ordered during this hospital stay have been completed unless listed below. Please discuss all pending results with your provider listed above in these instructions. ?? Add On Lab Order Blood Culture Blood Culture #2 CBC COVID-19 (2019 Novel Coronavirus) PCR Comprehensive Metabolic Panel Magnesium Level (Mg Level) What to do next Instructions From Your Doctor patient should follow pcp in 1 week of discharge. a referral to pulmonary to be given by pcp for better asthma controll Discharge Orders Condition:??stable You Need to Schedule the Following Appointments Follow Up with??Not on Staff, PCP When?? Discharge Medications JACIEL MONAE :1995 Visit Date:11/13/2022 Medications: Please continue your medications until treatment is completed or stopped by your provider. Medications not listed below should be discontinued. Discuss any questions related to medications with your provider. What How Much When Instructions Next Dose Changed Albuterol (albuterol 0.083% inhalation solution) 3 Milliliter BAND Nebulizer 4 times a day as needed for Wheezing/Shortness of Breath Duration: 30 Days Take as directed Changed Clonazepam (clonazePAM 2 mg oral tablet) 1 tab(s) Oral Twice a day Duration: 3 Days Pickup at [facility]/pharmacy #[id number] Take on tonight Changed PredniSONE (predniSONE 20 mg oral tablet) 2 tab(s) Oral Daily Duration: 5 Days Pickup at [facility]/pharmacy #1971 Take on tomorrow Unchanged Clonidine (cloNIDine 0.1 mg oral tablet) 1 tab(s) Oral 3 times a day as needed for Anxiety Take as directed Unchanged Cyclobenzaprine (cyclobenzaprine 5 mg oral tablet) 1.5 tab(s) Oral 3 times a day as needed ?? Take as directed Unchanged Doxepin (doxepin 10 mg oral capsule) 1 capsule Oral Daily at Bedtime Take on tonight Unchanged Durable Medical Equipment (Aerochamber) See instructions use with albuterol and symbicort inhalers ?? Take as directed Unchanged Melatonin (Melatonin 10 mg oral tablet) 1 tab(s) Oral Daily at Bedtime Take on tonight Unchanged nalOXONE (Narcan 4 mg/ 0.1 mL nasal spray) See instructions 4 mg Naris, Left Once for ?? Unchanged Omeprazole (omeprazole 40 mg oral enteric coated capsule) 1 capsule Oral Daily Take on tomorrow Unchanged Trazodone (traZODone 50 mg oral tablet) 1 tab(s) Oral Daily at Bedtime Duration: 30 Days Take on tonight Pharmacy Information [facility]/pharmacy #1971: [address] [place], [place] [id number] [phone] ?? What How Much When Comments Stop Taking Budesonide-Formoterol (Symbicort 80mcg/ 4.5mcg Inhaler) 2 puff(s) Inhalation Twice a day rinse mouth and throat after use ?? Test Results Below is a partial list of the most recent Laboratory test results done prior to this discharge. You may have had other tests and procedures not included in this list. Please discuss all test resultswith your provider. Basic Metabolic Panel (11/13/2022) ???Sodium - 134 mmol/L???Potassium - 3.7 mmol/L???Chloride - 99 mmol/L???Bicarbonate Level - 23 mmol/L???Anion Gap - 12???Glucose Level - 102 mg/dL???BUN - 5 mg/dL???Creatinine-Blood - 0.6 mg/dL???Estimated GFR Creatinine - 129 ML/MIN/1.73 M2???Calcium - 8.6 mg/dL BLOOD GAS, VENOUS (11/13/2022) ???Specimen Type - Blood Gas - VENOUS???pH, Venous - 7.42???pCO2, Venous - 38 mm Hg???pO2, Venous -60 mm Hg???Bicarbonate, Estimated(Venous) - 24 mmol/L C-REACTIVE PROTEIN (11/13/2022) ???C-Reactive Protein - 22.2 mg/dL CBC w/ Differential (11/13/2022) ???WBC - 9.3 k/mm3???RBC - 3.63 m/mm3???Hgb - 10.2 Gm/dL???Hct - 30.7 %???MCV - 84.6 femtoliters???MCH - 28.1 pg???MCHC - 33.2 g/dL???Platelet Count - 190 k/mm3???RDW-SD - 44.4 femtoliters???MPV - 10.0 femtoliters???Nucleated RBC (Automated) - 0.0 #/100 WBC'S???Abs. NRBC - 0.0 k/mm3???Abs. Neut - 7.2 k/mm3???Abs. Lymph - 1.2 k/mm3???Abs. Ware - 0.9 k/mm3???Abs. Eo - 0.0 k/mm3???Abs. Baso - 0.0 k/mm3???Neut % - 77.4 %???Lymph % - 12.9 %???Ware % - 9.1 %???Eos % - 0.0 %???Baso % - 0.1 %???Imm Gran - 0.5 %???Abs. Imm Gran - 0.1 k/mm3 COVID-19, RSV, and Flu A/B, Rapid PCR (11/13/2022) ???Influenza A PCR - NEGATIVE???Influenza B PCR - NEGATIVE???RSV PCR - NEGATIVE???COVID-19 PCR Specimen Source - NASAL???COVID-19 PCR Result - NEGATIVE CPK Total Only (11/13/2022) ???CK, Total - 223 units/L D-DIMER (11/13/2022) ???D-Dimer - 1.53 mg/L FEU Hepatic Function Panel (11/13/2022) ???Protein, Total - 6.2 Gm/dL???Albumin - 4.1 Gm/dL???Alkaline Phosphatase - 76 units/L???AST (SGOT) - 35 units/L? ?ALT (SGPT) - 32 units/L? ?Bilirubin, Total - 0.7 mg/dL? ?Bilirubin, Direct - <0.2 mg/dL???Bilirubin, Indirect - Direct bilirubin is less than the measureable limit. Therefore, indirect High??Sensitivity??Troponin T (11/13/2022) ? ?High Sensitivity Troponin (HSTnT) - <6 ng/L Hold Blue Top Tube (11/13/2022) ???Hold Blue Top - SPECIMEN DISCARDED AFTER 4 HOURS. Lactic Acid Level (11/13/2022) ???Lactate - 1.1 mmol/L Serum Qualitative (11/13/2022) ??? Serum Qual - NEGATIVE ProBNP (11/13/2022) ???Nt-Probnp - 180 pg/mL PROCALCITONIN, SERUM (11/13/2022) ???Procalcitonin - 0.34 ng/mL TSH with T4 Reflex (Adults Only) (11/13/2022) ???TSH - 0.56 uIU/mL Urinalysis w/hold for Urine Culture (11/13/2022) ???Appear/Color, Urine - YELLOW???Specific [place], Urine - 1.021???pH, Urine - 6.0???Albumin, Urine - 1+???Glucose, Urine - 3+???Ketones, Urine - 1+???Bilirubin, Urine - NEGATIVE???Hemoglobin, Urine- NEGATIVE???Nitrite, Urine - NEGATIVE???Leukocyte, Urine - NEGATIVE???Urobilinogen - 2 mg/dL???WBC's, Urine - 1 /HPF? ?RBC's, Urine - 2 /HPF? ?Squamous Epith - 4 /HPF? ?Renal Epith - <1 /HPF? ?Hyaline Cast - 1 LPF???Mucus - SLIGHT???Hold Urine Culture - Testing available 48 hours from time of collection. Allergies (NKA means No Known Allergies) Adhesive Bandage Latex Problems Active Problems??(7) Anxiety?? Asthma, persistent, severity to be determined?? Cervical lymphadenopathy?? Insomnia?? Polysubstance abuse?? PTSD (post-traumatic stress disorder)?? Substance use disorder?? Education Materials Below is the list of Educational Leaflet Providered with your Discharge Instructions. Valuables and Belongings I fully understand and agree that [facility] accepts no responsibility for all my personal [...] to send valuables and belongings home. ?? No Valuables/Belongings: No valuables/belongings present Review of Valuable and Belonging List: With patient Possessions released to: No medical devices Date for Pt to Sign Valuables/Belongings: 11/13/22 12:34:00 ?? Other Discharge Information ? Pulmonary Rehab Status?? Pulmonary Rehab Discharge Status?? Respiratory Rate: 18 br/min ? Common Emergency Awareness Tips IS [...] are strongly encouraged to quit. Please call [facility] Link at [phone] or [phone] ([phone]) or log in to [email or web address] for referrals to smoking cessation programs. ?? The National Suicide Prevention Hotline is available 17/03 if you or someone you know needs to find a reason to keep living. By calling 9-668-476-[employer] (7984) you'll be connected to a skilled, trained counselor at a crisis center in your area. INPATIENT DISCHARGE INSTRUCTIONS SIGNATURE JACIEL ROSAS Location:[facility] Registration Date and Time:11/13/2022 10:29 EDT Primary Care Physician: Not on Staff, PCP JACIEL SESAY, have received the above patient education materials/instructions and have verbalized understanding. If ambulance or transport services are being used I further acknowledge being given a choice of service. ?? If you need to contact me, please call me at this number: . Patient/Server Software Engineer Name: Patient/Server Software Engineer Signature: Relationship to Patient: Witness Name/Signature: Date: Portable XR Chest Views * [employer] , CIS S: TRANSCRIBE Roger Johns MD: SIGN Kasandra Paniagua MD: VERIFY Event Display: Result: Authored Date: [id number] Chest Portable INDICATION: Increased shortness of breath. Patient was seen at outside hospital yesterday and diagnosed with pneumonia. Reports using heroin and cocaine last night. COMPARISON: Multiple prior radiographs, most recent 09/10/2022. FINDINGS: LINES AND TUBES: None. LUNGS AND PLEURA: Hazy opacity at the right lower lobe, possibly secondary to atelectasis, superimposed pneumonia cannot be completely excluded. Normal pulmonary vascularity. No pleural effusion. No pneumothorax. HEART, MEDIASTINUM AND YESICA: Unchanged cardiomediastinal silhouette. BONES AND SOFT TISSUES: No acute abnormality. IMPRESSION: Hazy opacity at the right lower lobe, possibly secondary to atelectasis, superimposed pneumonia cannot be completely excluded. I have personally reviewed the images and I agree with this report. WSN: [id number] Ordering Physician: Anders Bah Dictated By: Roger Johns MD Dictated Date/Time: 11/13/22 11:48 a Reviewed By: Kasandra Paniagua MD Signed By: Kasandra Paniagua MD Signed Date/Time: 11/13/22 11:53 am Transcribed By: ARLINE Transcribed Date/Time: 11/13/22 11:42 am Patient Care team information Care Team Personnel Name: Agnieszka Lawler RN Position: S RN Member Role: Primary Care Nurse Name: Stephanie Maynard RN Position: S RN Member Role: Primary Care Nurse Name: Not on Staff, PCP Position: S Physician (General Medicine) Member Role: PCP Name: Weston Miller RN, Mary Position: [facility] RN Member Role: Primary Care Nurse Name: Cathi Murrieta RN Position: [facility] RN Member Role: Primary Care Nurse Name: Bisi PALMA Attending Position: [facility] ED Medicine MD Name: Anders Rodriguez Position: [facility] Associate Professional Member Role: ED Physician Bakery Demonstrator Address: Address: [address] [place] [address] Name: Kasandra Ga RN Position: [facility] ED RN W/OE and Tasks Member Role: Patient Care Provider Name: Gurwinder Schmitz Position: [facility] ED TA [facility] Member Role: Pay Station Collector Care Team Related Persons Name: LANIE POWERS Address: home [address] [place] [address] Name: CARLTON POWERS Address: home [address] [place] [address] Name: GEORGINA POWERS Address: home [address] [place] [address]
--- NOTE | 2023-02-18 21:30 | PHA.MEDREC ---
Pharmacy Consult ? Medication Reconciliation Pharmacy has completed the medication reconciliation. Pt able to confirm meds at bedside, states she takes gabapentin 800mg TID and clonazepam 2mg TID with an additional 1 tab prn, notified provider that these are not recent and she instructed me to only continue the gabapentin. Pt also states she gets methadone 60mg from [facility], but did not get today's dose due to her illness. Let pt know that we will need her verification form from the clinic tomorrow morning
--- NOTE | 2023-02-18 22:15 | PC.NURSE ---
patient in bed with eyes opeb patient vital are stable at this time patient will receive all medications with no issues patient will continue to be monitored for safety
[2023-02-18] MEDS: Enoxaparin Sodium 40 MG/0.4 ML SYRINGE SUBCUT (22:40)
[2023-02-18] MEDS: cloNIDine HCL 0.1 MG TABLET PO (22:40)
[2023-02-18] MEDS: methylPREDNISolone Sod Succ 40 MG/ML VIAL IVPUSH (22:41)
[2023-02-18] MEDS: methADONE HCl 20 MG/2 ML ORAL.CONC PO (22:41)
[2023-02-18] MEDS: methocarbamoL 750 MG TABLET PO (22:41)
[2023-02-18] MEDS: Gabapentin 400 MG CAPSULE 800 MG PO (22:41)
[2023-02-18] MEDS: 0.9 % Sodium Chloride Flush 3 ML SYRINGE IVFLUSH (22:45)
--- NOTE | 2023-02-18 22:51 | PC.NURSE ---
patient in bed with no distress patient was medicated with all medications with no distress patient will continue to be monitored for safety
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
[2023-02-18 22:53] VITALS: BP 125/80; PULSE 77; RESP 18; TEMP 36.9; O2SAT 99
--- NOTE | 2023-02-18 23:24 | PC.NURSE ---
patient in the process of being [id number] patient report given to the receiving nurse Liudmila patient is aware and will be moving to the assigned bed
[2023-02-18 23:31] VITALS: BP 111/63; PULSE 96; RESP 17; TEMP 37.1; O2SAT 97
[2023-02-18 23:49] LABS: Appearance Urine Cloudy; Color Urine Yellow; Glucose Urine UA Negative (Negative); Leukocyte Esterase Urine Moderate (2+) (Negative); Nitrite Urine Negative (Negative); Specific Gravity - Urine >= 1.030 (1.005-1.025); UMIC TRIGGER UACC YES; Urine Blood Negative (Negative); Urine Ketones 15 mg/dL (Negative); Urine Protein Trace mg/dL (Neg-Trace)
[2023-02-18 23:54] LABS: Bacteria Urine 4+ (None Seen); Hyaline Casts Urine 0-2 /LPF (0-2); RBC Urine 0-2 /HPF (0-2); Squamous Epithelial Cell Urine >20 /HPF (0-2); UACC Culture Trigger YES
[2023-02-18 23:56] LABS: Amphetamine Screen Urine Not Detected (Not Detect); Barbiturates, Urine Not Detected (Not Detect); Benzodiazepines Screen Urine Not Detected (Not Detect); Cannabinoid Screen Urine Not Detected (Not Detect); Cocaine Screen Urine Not Detected (Not Detect); Fentanyl, urine POSITIVE (Not Detect); Opiate Screen Urine POSITIVE (Not Detect); Phencyclidine Screen Urine Not Detected (Not Detect)
[2023-02-19 00:11] VITALS: BP 122/70; PULSE 97; RESP 20; TEMP 36.2; O2SAT 97
[2023-02-19 00:14] VITALS: BMI 22.6
[2023-02-19] MEDS: clonazePAM 1 MG TABLET 2 MG PO (00:37)
[2023-02-19 06:45] LABS: Hemoglobin 12.5 g/dl (12.0-16.0); Imm Gran Abs Auto 0.04 X10*3/uL (0.00-0.03); Imm Gran Pct Auto 0.5 % (0.0-0.4); Lymphocytes Absolute Auto 0.6 X10*3/uL (1.2-4.9); Lymphocytes Percent Auto 7.5 % (20-40); MANUAL DIFF FLAG SCAN; Mean Corpuscular HGB Conc 32.9 g/dl (31.0-35.0); Mean Corpuscular Hemoglobin 27.3 pg (27.0-33.0); Monocytes Absolute Auto 0.1 X10*3/uL (0.1-1.2); Monocytes Percent Auto 1.2 % (2-11); Neutrophils Absolute Auto 7.5 x10*3/uL (2.0-8.3); Neutrophils Percent Auto 90.8 % (45-73); Platelet Count 300 X10*3/uL (160-400); Red Blood Count 4.58 X10*6/uL (4.20-5.50); Red Cell Distribution Width 13.6 % (11.0-16.0); SCAN SMEAR FLAG 1; White Blood Count 8.2 X10*3/uL (4.8-10.8)
[2023-02-19 07:04] LABS: Anion Gap 13 (12-20); Blood Urea Nitrogen 12 mg/dL (9-16); Carbon Dioxide 22 mmol/L (22-29); Chloride 104 mmol/L (96-108); Creatinine Clr Calc Pharmacy 128.9; Estimated Glomerular Filt Rate > 60; Glucose Random 138 mg/dL (60-115); Potassium 4.4 mmol/L (3.3-5.1); Sodium 135 mmol/L (135-145)
[2023-02-19 07:34] VITALS: BP 104/58; PULSE 78; RESP 18; TEMP 37; O2SAT 98
[2023-02-19] MEDS: levalbuterol HCL 1.25 MG/3 ML VIAL.NEB INHALE ×2 (08:00→11:31)
[2023-02-19 08:04] VITALS: PULSE 102; RESP 20; O2SAT 92
[2023-02-19] MEDS: cloNIDine HCL 0.1 MG TABLET PO (08:05)
[2023-02-19] MEDS: Gabapentin 400 MG CAPSULE 800 MG PO (08:05)
[2023-02-19] MEDS: methylPREDNISolone Sod Succ 40 MG/ML VIAL IVPUSH (08:06)
[2023-02-19 08:13] LABS: SLIDE REVIEW VERIFIED
--- NOTE | 2023-02-19 08:37 | HE.PHANOTE ---
Methadone verification Pharmacy has received the methadone verification from LAYLA Palma. Patient last received methadone 60 mg on 02/17 [facility] Confrimed with Miriam at the clinic. Nereida Raines, FernandoD
--- NOTE | 2023-02-19 09:00 | P.PNIM_ITS ---
Subjective Subjective Date of Service: 02/19/23 Interval History: f/u on asthma interval history: doing better, no sob Physical Exam Vital Signs: Vital Signs: Last Vital Signs Temp 98.6 F 02/19/23 07:34 Pulse 102 H 02/19/23 08:04 Resp 20 02/19/23 08:04 BP 104/58 L 02/19/23 07:34 Pulse Ox 98 02/19/23 07:34 O2 Del Method Room Air 02/19/23 07:34 BMI result Body Mass Index 22.6 Const: Other: General: AO X 3, no acute distress Resp: CTA bilateral CVS: S1,S2,RRR GI: +BS, NT, no distention Skin: No rash Neuro: motor grossly intact Psych: appropriate affect Objective Data Active Medications Acetaminophen (Acetaminophen 325 Mg Tablet) 650 mg PO Q6H PRN PRN Reason: Pain, Mild (Pain Scale 1-3) Albuterol Sulfate (Albuterol Sulfate 90 Mcg 8 Gm Inhaler) 2 puff INHALE Q6H PRN PRN Reason: Shortness Of Breath Clonidine HCl (Clonidine Hcl 0.1 Mg Tablet) 0.1 mg PO TID [facility]; Protocol Last Admin: 02/19/23 08:05 Dose: 0.1 mg Documented By: FRACISCO Docusate Sodium (Docusate Sodium 100 Mg Capsule) 100 mg PO DAILY PRN PRN Reason: Constipation Enoxaparin Sodium (Enoxaparin Sodium 40 Mg/0.4 Ml Syringe) 40 mg SUBCUT Q24H [facility] Last Admin: 02/18/23 22:40 Dose: 40 mg Documented By: BALTAZAR Gabapentin (Gabapentin 400 Mg Capsule) 800 mg PO TID [facility] Last Admin: 02/19/23 08:05 Dose: 800 mg Documented By: FRACISCO Levalbuterol HCl (Levalbuterol Hcl 1.25 Mg/3 Ml Vial.Neb) 1.25 mg INHALE Q2H PRN PRN Reason: Shortness of Breath/Wheezing Levalbuterol HCl (Levalbuterol Hcl 1.25 Mg/3 Ml Vial.Neb) 1.25 mg INHALE RQ4H WHILE AWAKE [facility] Last Admin: 02/19/23 08:00 Dose: 1.25 mg Documented By: NONI Methocarbamol (Methocarbamol 500 Mg Tablet) 750 mg PO BID [facility] Methylprednisolone Sodium Succinate (Methylprednisolone Sod Succ 40 Mg/Ml Vial) 40 mg IVPUSH Q12H [facility] Last Admin: 02/19/23 08:06 Dose: 40 mg Documented By: FRACISCO Prochlorperazine Edisylate (Prochlorperazine Edisylate 10 Mg/2 Ml Vial) 5 mg IVPUSH Q4H PRN PRN Reason: Nausea and Vomiting Sodium Chloride (0.9 % Sodium Chloride Flush 3 Ml Syringe) 3 ml IVFLUSH QSHIFT [facility] Last Admin: 02/18/23 22:45 Dose: 3 ml Documented By: BALTAZAR Labs 02/19/23 05:39 02/19/23 05:39 Labs: Laboratory Results - last 24 hr 02/18/23 02/18/23 02/18/23 18:04 18:04 18:04 MCV 84.9 MCH 28.0 MCHC 32.9 RDW 13.4 Plt Count 244 D MPV 9.9 Immature Gran % (Auto) 0.3 Neut % (Auto) 69.5 Lymph % (Auto) 17.4 L [place] % (Auto) 4.9 Eos % (Auto) 7.5 H Baso % (Auto) 0.4 Lymph # (Auto) 1.3 [place] # (Auto) 0.4 Eos # (Auto) 0.6 H Baso # (Auto) 0.0 Abs Immat Gran (auto) 0.02 Absolute Neuts (auto) 5.3 Absolute Nucleated RBC 0.000 Nucleated RBC % (auto) 0.0 Smear Tech's Comments Anion Gap 16 Estim Creat Clear Calc 120.9 Estimated GFR > 60 Random Glucose 122 H Lactic Acid 2.0 Calcium 9.9 Total Bilirubin 0.6 AST 19 ALT 17 Alkaline Phosphatase 86 Total Protein 7.7 Albumin 4.6 Beta HCG, Quant Urine Color Urine Appearance Urine pH Ur Specific [place] Urine Protein Urine Glucose (UA) Urine Ketones Urine Blood Urine Nitrite Ur Leukocyte Esterase Urine RBC Urine WBC Ur Squamous Epith Cells Urine Bacteria Hyaline Casts Urine Opiates Screen Urine Fentanyl Screen Ur Barbiturates Screen Ur Phencyclidine Scrn Ur Amphetamines Screen U Benzodiazepines Scrn Urine Cocaine Screen U Marijuana (THC) Screen 02/18/23 02/18/23 02/18/23 18:04 23:36 23:36 MCV MCH MCHC RDW Plt Count MPV Immature Gran % (Auto) Neut % (Auto) Lymph % (Auto) [place] % (Auto) Eos % (Auto) Baso % (Auto) Lymph # (Auto) [place] # (Auto) Eos # (Auto) Baso # (Auto) Abs Immat Gran (auto) Absolute Neuts (auto) Absolute Nucleated RBC Nucleated RBC % (auto) Smear Tech's Comments Anion Gap Estim Creat Clear Calc Estimated GFR Random Glucose Lactic Acid Calcium Total Bilirubin AST ALT Alkaline Phosphatase Total Protein Albumin Beta HCG, Quant < 2 Urine Color Yellow Urine Appearance Cloudy Urine pH 5.0 Ur Specific [place] >= 1.030 H Urine Protein Trace Urine Glucose (UA) Negative Urine Ketones 15 Urine Blood Negative Urine Nitrite Negative Ur Leukocyte Esterase Moderate (2+) H Urine RBC 0-2 Urine WBC 11-20 H Ur Squamous Epith Cells >20 Urine Bacteria 4+ Hyaline Casts 0-2 Urine Opiates Screen POSITIVE H Urine Fentanyl Screen POSITIVE H Ur Barbiturates Screen Not Detected Ur Phencyclidine Scrn Not Detected Ur Amphetamines Screen Not Detected U Benzodiazepines Scrn Not Detected Urine Cocaine Screen Not Detected U Marijuana (THC) Screen Not Detected 02/19/23 02/19/23 05:39 05:39 MCV 83.0 MCH 27.3 MCHC 32.9 RDW 13.6 Plt Count 300 MPV 10.0 Immature Gran % (Auto) 0.5 H Neut % (Auto) 90.8 H Lymph % (Auto) 7.5 L [place] % (Auto) 1.2 L Eos % (Auto) 0.0 Baso % (Auto) 0.0 Lymph # (Auto) 0.6 L [place] # (Auto) 0.1 Eos # (Auto) 0.0 Baso # (Auto) 0.0 Abs Immat Gran (auto) 0.04 H Absolute Neuts (auto) 7.5 Absolute Nucleated RBC 0.000 Nucleated RBC % (auto) 0.0 Smear Tech's Comments VERIFIED Anion Gap 13 Estim Creat Clear Calc 128.9 Estimated GFR > 60 Random Glucose 138 H Lactic Acid Calcium 10.0 Total Bilirubin AST ALT Alkaline Phosphatase Total Protein Albumin Beta HCG, Quant Urine Color Urine Appearance Urine pH Ur Specific [place] Urine Protein Urine Glucose (UA) Urine Ketones Urine Blood Urine Nitrite Ur Leukocyte Esterase Urine RBC Urine WBC Ur Squamous Epith Cells Urine Bacteria Hyaline Casts Urine Opiates Screen Urine Fentanyl Screen Ur Barbiturates Screen Ur Phencyclidine Scrn Ur Amphetamines Screen U Benzodiazepines Scrn Urine Cocaine Screen U Marijuana (THC) Screen Assessment and Plan (1) Severe asthma with exacerbation: Status: Acute Plan 27-year-old female with history of poorly controlled asthma comes into the hospital with asthma exacerbation #severe peristent asthma with acute exacerbation, exacerbation resolved, she is breathing comfortably, no resp distresss. continue steroid but change to PO, continue inhalers. # opioid use disorder - continue methadone # anxiety and PTSD - continue clonidine -she tells me that she takes clonopin 2 mg tid and was last prescribed the end of last month, [employer] show that the last time she was prescribed Clonopin was november 14 2022 and given only 6 pills DVT prophylaxis:? Early ambulation need for inpatient : exacerbation of ashtma needing iv steroid and close monitoring Time Spent With Patient Time: Total time managing care of this patient today ____ minutes. Quality Stroke Does the patient have a stroke diagnosis?: No VTE Prior VTE?: No VTE Risk Level:: Medical - moderate - high VTE Device Contraindication: Treatment Not Indicated VTE Drug Contraindication: N/A - Med Ordered
--- NOTE | 2023-02-19 09:16 | PM.DS ---
DS: Providers Provider Date of Service: 02/19/23 Date of admission: 02/18/23 21:02 Primary care physician: Unknown Physician DS: Diagnosis Discharge Diagnosis (1) Severe asthma with exacerbation: Status: Acute DS: Summary Hospital Course Hospital Course: Chief Complaint: SOB 27-year-old female with past medical history of asthma poorly controlled, Crohn's disease, anxiety, PTSD, presents the hospital with complaints of shortness of breath.? Patient reports that she has been struggling with asthma control over the last 1 year.? She was supposed to start biologics but has had difficulty due to her homelessness.? She is following with [facility] as well as with carbon sequestration plant operator and plan for possible biopsy.? States that for the past 2 weeks she has had increased shortness of breath, cough, and sputum production that is mucus yellow colored.? She also reports that she has had recurrent pneumonia last treatment for pneumonia about 2 months ago.? She feels febrile and has chills, denies any headache or change in vision.? She reports chest pain with coughing, some nausea no vomiting, no abdominal pain, irregular BMs due to her history of Crohn's, no urinary symptoms and no lower extremity edema.? Symptoms worsen in the past 2 days, She states that she has been using her nebulizer every 1 hour for the past 2 days, and used her p.o. prednisone with minimal symptoms relief. On arrival to the ED patient noted to have heart rate of 123, respiratory rate of 26 otherwise stable Labs are reviewed and show no significant abnormality Chest x-ray negative for pneumonia Patient received multiple rounds of IV steroids, breathing treatments, and continues to have significant wheezing and shortness of breath Hospital course: She presented with shorntess of breath and found to have acute asthma exacerbation and treated with IV steroid, bronchodilators by neb and has made rapid turn around, she is presently breathing comfortably, lung clear, and will transition to oral prednisone and xopenex MDI and to follow up with her carbon sequestration plant operator on outpatient basis. Time Spent with Patient Time attestation: Total time managing care of this patient today ____ minutes. Discharge coordination time: Greater than 30 minutes Quality: Safe Use of Opioids Does Pt have an Active Cancer Diagnosis on the Problem List?: No Quality: Stroke Does the patient have a stroke diagnosis?: No Physical Exam Vital Signs: Vital Signs: Last Vital Signs Temp 98.6 F 02/19/23 07:34 Pulse 102 H 02/19/23 08:04 Resp 20 02/19/23 08:04 BP 104/58 L 02/19/23 07:34 Pulse Ox 98 02/19/23 07:34 O2 Del Method Room Air 02/19/23 07:34 BMI result Body Mass Index 22.6 Const: Other: General: AO X 3, no acute distress Resp: CTA bilateral CVS: S1,S2,RRR GI: +BS, NT, no distention Skin: No rash Neuro: motor grossly intact Psych: appropriate affect DS: Data Data Completed and Pending Completed studies during hospitalization [Text1]: Procedures Assistance with Respiratory Ventilation, Less than 24 Consecutive Hours, Continuous Positive Airway Pressure (05/31/21) Detoxification Services for Substance Abuse Treatment (11/04/21) Labs on day of discharge: Laboratory Results - last 24 hr 02/18/23 02/18/23 02/18/23 18:04 18:04 18:04 WBC 7.6 RBC 4.83 Hgb 13.5 Hct 41.0 MCV 84.9 MCH 28.0 MCHC 32.9 RDW 13.4 Plt Count 244 D MPV 9.9 Immature Gran % (Auto) 0.3 Neut % (Auto) 69.5 Lymph % (Auto) 17.4 L [place] % (Auto) 4.9 Eos % (Auto) 7.5 H Baso % (Auto) 0.4 Lymph # (Auto) 1.3 [place] # (Auto) 0.4 Eos # (Auto) 0.6 H Baso # (Auto) 0.0 Abs Immat Gran (auto) 0.02 Absolute Neuts (auto) 5.3 Absolute Nucleated RBC 0.000 Nucleated RBC % (auto) 0.0 Smear Tech's Comments Sodium 138 Potassium 4.0 Chloride 104 Carbon Dioxide 22 Anion Gap 16 BUN 10 Creatinine 0.64 Estim Creat Clear Calc 120.9 Estimated GFR > 60 Random Glucose 122 H Lactic Acid 2.0 Calcium 9.9 Total Bilirubin 0.6 AST 19 ALT 17 Alkaline Phosphatase 86 Total Protein 7.7 Albumin 4.6 Beta HCG, Quant Urine Color Urine Appearance Urine pH Ur Specific [place] Urine Protein Urine Glucose (UA) Urine Ketones Urine Blood Urine Nitrite Ur Leukocyte Esterase Urine RBC Urine WBC Ur Squamous Epith Cells Urine Bacteria Hyaline Casts Urine Opiates Screen Urine Fentanyl Screen Ur Barbiturates Screen Ur Phencyclidine Scrn Ur Amphetamines Screen U Benzodiazepines Scrn Urine Cocaine Screen U Marijuana (THC) Screen 02/18/23 02/18/23 02/18/23 18:04 23:36 23:36 WBC RBC Hgb Hct MCV MCH MCHC RDW Plt Count MPV Immature Gran % (Auto) Neut % (Auto) Lymph % (Auto) [place] % (Auto) Eos % (Auto) Baso % (Auto) Lymph # (Auto) [place] # (Auto) Eos # (Auto) Baso # (Auto) Abs Immat Gran (auto) Absolute Neuts (auto) Absolute Nucleated RBC Nucleated RBC % (auto) Smear Tech's Comments Sodium Potassium Chloride Carbon Dioxide Anion Gap BUN Creatinine Estim Creat Clear Calc Estimated GFR Random Glucose Lactic Acid Calcium Total Bilirubin AST ALT Alkaline Phosphatase Total Protein Albumin Beta HCG, Quant < 2 Urine Color Yellow Urine Appearance Cloudy Urine pH 5.0 Ur Specific [place] >= 1.030 H Urine Protein Trace Urine Glucose (UA) Negative Urine Ketones 15 Urine Blood Negative Urine Nitrite Negative Ur Leukocyte Esterase Moderate (2+) H Urine RBC 0-2 Urine WBC 11-20 H Ur Squamous Epith Cells >20 Urine Bacteria 4+ Hyaline Casts 0-2 Urine Opiates Screen POSITIVE H Urine Fentanyl Screen POSITIVE H Ur Barbiturates Screen Not Detected Ur Phencyclidine Scrn Not Detected Ur Amphetamines Screen Not Detected U Benzodiazepines Scrn Not Detected Urine Cocaine Screen Not Detected U Marijuana (THC) Screen Not Detected 02/19/23 02/19/23 05:39 05:39 WBC 8.2 RBC 4.58 Hgb 12.5 Hct 38.0 MCV 83.0 MCH 27.3 MCHC 32.9 RDW 13.6 Plt Count 300 MPV 10.0 Immature Gran % (Auto) 0.5 H Neut % (Auto) 90.8 H Lymph % (Auto) 7.5 L [place] % (Auto) 1.2 L Eos % (Auto) 0.0 Baso % (Auto) 0.0 Lymph # (Auto) 0.6 L [place] # (Auto) 0.1 Eos # (Auto) 0.0 Baso # (Auto) 0.0 Abs Immat Gran (auto) 0.04 H Absolute Neuts (auto) 7.5 Absolute Nucleated RBC 0.000 Nucleated RBC % (auto) 0.0 Smear Tech's Comments VERIFIED Sodium 135 Potassium 4.4 Chloride 104 Carbon Dioxide 22 Anion Gap 13 BUN 12 Creatinine 0.60 Estim Creat Clear Calc 128.9 Estimated GFR > 60 Random Glucose 138 H Lactic Acid Calcium 10.0 Total Bilirubin AST ALT Alkaline Phosphatase Total Protein Albumin Beta HCG, Quant Urine Color Urine Appearance Urine pH Ur Specific [place] Urine Protein Urine Glucose (UA) Urine Ketones Urine Blood Urine Nitrite Ur Leukocyte Esterase Urine RBC Urine WBC Ur Squamous Epith Cells Urine Bacteria Hyaline Casts Urine Opiates Screen Urine Fentanyl Screen Ur Barbiturates Screen Ur Phencyclidine Scrn Ur Amphetamines Screen U Benzodiazepines Scrn Urine Cocaine Screen U Marijuana (THC) Screen Discharge Plan Discharge Anticipated Discharge Date/Time: 02/19/23 09:19 Patient Disposition: Home, Self-Care Discharge Diagnosis: Acute exacerbation of ashtma Referrals: Physician,Rita J [Primary Care Provider] - 1 Week Discharge Medications: Continued clonidine HCl 0.1 mg tablet 0.1 mg PO TID methocarbamol 750 mg tablet 750 mg PO BID methadone 10 mg/mL Concentrate 60 mg PO DAILY albuterol sulfate [Ventolin HFA] 90 mcg/actuation HFA aerosol inhaler 2 inh inhalation Q6H PRN (Reason: Shortness Of Breath) gabapentin 800 mg tablet 800 mg PO TID Diet: Advance to usual diet Activity on Discharge: As tolerated Stand Alone Forms: Patient Portal Discharge page Care Plan Goals: prevent frequent hospitalization and control of asthma Health Concerns: asthma Plan of Treatment: Take Prednisone as directed and follow up with your lung doctor in a week, call for appointment Assessment: as above
[2023-02-19] MEDS: methADONE HCl 20 MG/2 ML ORAL.CONC 60 MG PO (09:57)
[2023-02-19] MEDS: 0.9 % Sodium Chloride Flush 3 ML SYRINGE IVFLUSH (09:59)
[2023-02-19] MEDS: Acetaminophen 325 MG TABLET 650 MG PO (11:06)
[2023-02-19] MEDS: methocarbamoL 500 MG TABLET 750 MG PO (11:06)
[2023-02-19 11:33] VITALS: PULSE 95; RESP 20; O2SAT 99
--- NOTE | 2023-02-19 12:54 | MHC.CM.PN ---
PATIENT DC PRIOR TO CASE MANAGEMENT ASSESSMENT OF NEEDS CM NAME WAS ON WHITE BOARD IN THE EVENT PATIENT HAD ANY QUESTIONS OR CONCERNS BOYFRIEND WAS IN ROOM TO TRANSPORT
== END 2023-02-19 13:09 | disposition home or self-care (01) | DRG 141 ==
LOC: HO.ED 20:25 → HO.EDOVER 21:08 → HO.S3 22:57
PROVIDERS: Admitting Provider Internal Medicine; Emergency Provider Student in an Organized Health Care Education/Training Program; PCP Nurse Practitioner Family; Visit Provider Internal Medicine
DX: J45.51 Severe persistent asthma with (acute) exacerbation (principal); F11.20 Opioid dependence, uncomplicated; F43.10 Post-traumatic stress disorder, unspecified; F41.9 Anxiety disorder, unspecified; K50.90 Crohn's disease, unspecified, without complications; Z91.040 Latex allergy status; Z79.899 Other long term (current) drug therapy
CPT/HCPCS: 36415; 71046; 80048; 80053; 80307; 81001; 83605; 84702; 85025; 87040; 87086; 94640; 99285; J1200; J1650; J2920

== ENCOUNTER 2023-06-12 15:45 | Inpatient (IN) | payer OTHER, SELFPAY ==
[2023-06-12] VITALS (8 sets, daily range): BP systolic 96–127; BP diastolic 52–80; PULSE 89–104; RESP 14–26; TEMP 36.8; O2SAT 86–96; BMI 22.5
--- NOTE | ~2023-06-12 | XR_ITS ---
EXAMINATION: XR CHEST 2 VIEW CLINICAL INFORMATION: Shortness of breath COMPARISON: 02/18/2023 TECHNIQUE: PA and lateral views of the chest obtained. FINDINGS: The lungs are clear. There are no pleural effusions. The cardiomediastinal silhouette is normal. Dextroconvex thoracolumbar scoliosis is present. XR/XR chest 2V IMPRESSION: No acute cardiopulmonary disease.
--- NOTE | 2023-06-12 15:49 | ED_ITS ---
HPI - SOB/Dyspnea General Chief Complaint: Upper Respiratory Symptoms Stated Complaint: coughing,congestion Time Seen by Provider: 06/12/23 16:05 Source: patient, RN notes reviewed and old records reviewed Mode of arrival: ambulatory Limitations: no limitations History of Present Illness HPI Narrative: 27-year-old female past medical history significant for persistent pneumonia, mood disorder, opioid dependence presents for evaluation of shortness of breath Patient reports that her symptoms have been worsening over the last 2 weeks but she has been able to managing up until last couple of days. Denies any fevers but endorses cough, shortness of breath, chest congestion. She has been using all of her medications as prescribed. Per her outpatient medication list she is on Ventolin, Advair, and ipratropium bromide Patient also reports that she was on doxycycline with her last dose being today because she is being treated for ?chlamydia. ? Iritis the ED her oxygen saturation was 86% on room air. Related Data Home Medications Medication Instructions Recorded Confirmed albuterol sulfate 90 mcg/actuation 2 inh inhalation Q6H PRN Shortness 02/18/23 02/18/23 aerosol inhaler (Ventolin HFA) Of Breath clonidine HCl 0.1 mg tablet 0.1 mg PO TID 02/18/23 02/18/23 gabapentin 800 mg tablet 800 mg PO TID 02/18/23 02/18/23 methadone 10 mg/mL oral concentrate 60 mg PO DAILY 02/18/23 02/19/23 methocarbamol 750 mg tablet 750 mg PO BID 02/18/23 02/18/23 Previous Rx's Medication Instructions Recorded prednisone 20 mg tablet 40 mg (2 x 20 mg) PO DAILY #8 tabs 02/19/23 Allergies Allergy/AdvReac Type Severity Reaction Status Date / Time latex [LATEX] Allergy Intermediate RASH Verified 02/18/23 17:39 ondansetron [From Zofran] Allergy Intermediate Shortness Verified 02/18/23 17:39 of Breath propranolol Allergy Intermediate Shortness Verified 02/18/23 17:39 of Breath adhesive tape [ADHESIVE TAPE] AdvReac Intermediate RASH Verified 02/18/23 17:39 Review of Systems 2 Constitutional: Constitutional: Denies chills, Denies fever(s) and Denies weakness Cardiovascular: Cardiovascular: Reports dyspnea Respiratory: Respiratory: Reports chest congestion, Reports cough, Reports pain with cough, Reports dyspnea and Reports wheezing Gastrointestinal: Gastrointestinal: Denies abdominal pain, Denies nausea and Denies vomiting Musculoskeletal: Musculoskeletal: Denies back pain Neurologic: Denies weakness Allergic/Immunologic: Allergic/Immunologic: Reports wheezing PMFSH Past Medical History Medical History Anxiety Asthma Asthma Asthma Bipolar disorder COVID-19 Crohn's disease Depression GERD (gastroesophageal reflux disease) Opioid use disorder Pneumonia due to COVID-19 virus Pneumonitis PTSD (post-traumatic stress disorder) Family History Family History Father Colon cancer Mother No problems noted. Brother Autism Sister Bipolar disorder Maternal Aunt Breast cancer Social History Social History Household Members: None Housing: Apartment Housing Other:: motel Do you presently have visiting nurse or other home services: No Alcohol intake: never Patient Tobacco Use Status: Former Tobacco user Cigarette Packs Per Day: 0.33 Cigarettes Per Day: 6.6 Years Smoked: 9 Smoked in Last 30 Days: No e-Cigarette/Vaping Use: Former Use Second Hand Smoke Exposure: Yes Use of substances other than those prescribed or required for medical reasons: Yes Substance Use Type: Heroin Substance Use Frequency: Chronic Longstanding Last Used Substance: Weeks (ago) Any prior treatment program specific to substance use: No Advance Directives: Yes Advance Directives on File: Yes Advance Directives Date on File: 05/07/21 Nutrition Risks: No Nutritional Risk Patient : No service: No Current occupational status: unemployed Cognitive needs: No Hearing needs: No Vision needs: No Physical Exam 2 Vital Signs: Vital Signs: Last Vital Signs Temp 98.3 F 06/12/23 15:51 Pulse 92 06/12/23 19:06 Resp 18 06/12/23 19:06 BP 127/80 06/12/23 19:06 Pulse Ox 95 06/12/23 19:06 O2 Del Method Nasal Cannula 06/12/23 19:06 O2 Flow Rate 3 06/12/23 19:06 Oxygen Flow Rate 3 06/12/23 16:25 BMI result Body Mass Index 22.5 Const: General: healthy appearing, comfortable, no acute distress, alert and awake Nutritional Appearance: well nourished Orientation/consciousness: p atient oriented x3 HEENT: Head: Yes normocephalic and Yes atraumatic Eyes: Eyelids: Yes eyelids normal Conjunctivae: conjunctivae normal S clerae: sclerae normal Corneas: corneas normal Pupils: Equal, round and reactive pupils present EOM: EOMs intact bilaterally Neck: Neck: Yes full ROM Resp: Other: At the time of my evaluation, the patient is resting comfortably in a supine position on 2 L of oxygen supplementation via nasal cannula. She does have diffuse expiratory wheeze on exam. Effort & Inspection: normal respiratory effort, able to speak in complete sentences, no audible wheezes and not labored Auscultation: clear to auscultation bilaterally Cardio: Rate: regular rate Rhythm: regular rhythm GI: Inspection: No distended Palpation (GI): Soft to palpation, not firm, nontender, no guarding and not rigid Skin: General skin exam: no rashes or lesions noted and elasticity normal Neuro: General: patient oriented x3 Cranial nerves: Yes Equal, round and reactive pupils present and Yes Bilaterally intact EOM present Cognition (Neuro): normal cognition Course Course Course Narrative: RME: 27yo F w/PMHx asthma, pneumonitis, bipolar, depression, anxiety, GERD, Crohn's, opiate use disorder, c/o worsening SOB, cough x2-3 days w/chest pain with coughing. Has been using neb & inhalers at home without relief. Denies fever. Admits was recently see at [facility] O2 86% on RA, Appears under the influence, wearing sunglasses. +diffuse expiratory wheeze and coarse lung sounds throughout. EKG, Labs, CXR, Viral testing & ED Bronch protocol ordered Full HPI, ROS and PE to be performed by primary ED provider. Reevaluation(s) Reevaluation #1: patient's workup largely unremarkable. After treatment, her oxygen saturation is however a 93-95% on room air at rest. We will ambulate the patient on room air. Time: 19:17 Reevaluation #2: While ambulating around the department on room air, the patient's oxygen saturation became 88%. She was dizzy and lightheaded at the time with increased respiratory rate. Will admit to the medical service Time: 19:27 Medications Administered Discontinued Medications Generic Name Dose Route Start Last Admin Trade Name Freq PRN Reason Stop Dose Admin Albuterol Sulfate 5 mg/ 0 mg 06/12/23 16:18 06/12/23 16:33 Albuterol/Ipratropium 3 ml INHALE 06/12/23 16:19 1 each ONCE ONE Administration Magnesium Sulfate 2 gm in 50 mls @ 25 mls/hr 06/12/23 16:21 06/12/23 19:17 Magnesium Sulfate/H2o IV 06/12/23 18:20 Infused ONCE ONE Infusion Methylprednisolone Sodium Succinate 125 mg 06/12/23 16:21 06/12/23 17:17 Methylprednisolone Sod Succ 125 Mg/2 Ml Vial IVPUSH 06/12/23 16:22 125 mg ONCE ONE Administration Medical Decision Making Medical Decision Making [facility] Narrative: 27-year-old female with a known history of persistent asthma, chronic pneumonia presents for evaluation shortness of breath. Plan for labs, chest x-ray, viral soft. She was given DuoNeb protocol, Solu-Medrol magnesium. Will closely follow. The patient is currently comfortable on nasal cannula. The patient also psis recently treated with doxycycline which should also cover pneumonia. This is most likely an asthma exacerbation. She denies any fevers as well. Patient states that she is not currently on methadone or Suboxone and uses heroin ?occasionally. ? She states back her last use was a few weeks ago Differential Diagnosis Differential Diagnoses: The differential diagnosis associated with the presentation includes Acute asthma exacerbation Acute hypoxic respiratory failure Pneumonia Pneumonitis Bronchitis COVID-19 Admission/Observation Consideration of admission/observation: Escalation of care including admission/observation considered Patient was hypoxic on arrival. Will re-evaluate after treatment Lab Data [facility] Lab Attestation statement: I reviewed the patient's lab results. no leukocytosis or significant anemia. No electrolyte abnormalities. 06/12/23 16:54 06/12/23 16:54 Labs: Lab Results 06/12/23 06/12/23 06/12/23 Range/Units 16:54 16:55 17:31 WBC 6.9 (4.8-10.8) X10*3/uL RBC 4.39 (4.20-5.50) X10*6/uL Hgb 12.6 (12.0-16.0) g/dl Hct 39.0 (37.0-47.0) % MCV 88.8 (80.0-98.0) fL MCH 28.7 (27.0-33.0) pg MCHC 32.3 (31.0-35.0) g/dl RDW 14.2 (11.0-16.0) % Plt Count 243 (160-400) X10*3/uL MPV 11.2 (9.4-12.3) fL Immature Gran % (Auto) 0.3 (0.0-0.4) % Neut % (Auto) 59.8 (45-73) % Lymph % (Auto) 24.6 (20-40) % [place] % (Auto) 6.8 (2-11) % Eos % (Auto) 8.1 H (0-4) % Baso % (Auto) 0.4 (0-2) % Lymph # (Auto) 1.7 (1.2-4.9) X10*3/uL [place] # (Auto) 0.5 (0.1-1.2) X10*3/uL Eos # (Auto) 0.6 H (0.0-0.4) X10*3/uL Baso # (Auto) 0.0 (0.0-0.2) X10*3/uL Abs Immat Gran (auto) 0.02 (0.00-0.03) X10*3/uL Absolute Neuts (auto) 4.1 (2.0-8.3) x10*3/uL Absolute Nucleated RBC 0.000 (0.0-0.012) X10*3/uL Nucleated RBC % (auto) 0.0 (0.0-0.2) /100WBC PT 10.7 L (11.1-13.3) SEC INR 0.9 (0.9-1.1) Sodium 139 (135-145) mmol/L Potassium 4.2 (3.3-5.1) mmol/L Chloride 106 (96-108) mmol/L Carbon Dioxide 24 (22-29) mmol/L Anion Gap 13 (12-20) BUN 15 (9-16) mg/dL Creatinine 0.69 (0.5-1.4) mg/dL Estim Creat Clear Calc 112.1 Estimated GFR > 60 Random Glucose 76 (60-115) mg/dL Lactic Acid 1.5 (0.5-2.0) mmol/L Calcium 9.4 (8.4-10.2) mg/dL Total Bilirubin 0.2 (0.0-1.0) mg/dL Direct Bilirubin < 0.2 (0.0-0.5) mg/dL AST 20 (5-31) U/L ALT 13 (0-31) U/L Alkaline Phosphatase 51 (39-117) U/L Troponin I High Sens < 2.7 (<3.5-17.0) ng/L B-Natriuretic Peptide 36 (<100) pg/mL Total Protein 7.3 (6.5-8.0) g/dL Albumin 4.1 (3.5-5.0) g/dL Beta HCG, Quant < 2 mIU/mL Urine Color Yellow Urine Appearance Clear Urine pH 5.5 (5.0-9.0) Ur Specific [place] 1.020 (1.005-1.025) Urine Protein Negative (Neg-Trace) mg/dL Urine Glucose (UA) Negative (Negative) mg/dL Urine Ketones Negative (Negative) mg/dL Urine Blood Negative (Negative) Urine Nitrite Negative (Negative) Ur Leukocyte Esterase Moderate (2+) H (Negative) Urine RBC 0-2 (0-2) /HPF Urine WBC 21-50 H (0-5) /HPF Ur Squamous Epith Cells 6-10 (0-2) /HPF Urine Bacteria 3+ (None Seen) Hyaline Casts 3-5 (0-2) /LPF Urine Opiates Screen POSITIVE H (Not Detect) Urine Fentanyl Screen POSITIVE H (Not Detect) Ur Barbiturates Screen Not Detected (Not Detect) Ur Phencyclidine Scrn Not Detected (Not Detect) Ur Amphetamines Screen Not Detected (Not Detect) U Benzodiazepines Scrn POSITIVE H (Not Detect) Urine Cocaine Screen POSITIVE H (Not Detect) U Marijuana (THC) Screen Not Detected (Not Detect) COVID-19 (DAVID) Negative (Negative) COVID-19 Clin Com See Note Influenza Type A (YTSON) Negative (Negative) Influenza Type B (TYSON) Negative (Negative) Influenza A & B Note See Note Independent Interpretation I performed an independent interpretation of an: Plain X-Ray (Hyperinflated lungs, no focal infiltrates) Discharge Plan Discharge Clinical Impression: Acute asthma exacerbation Patient Disposition: Admitted As Inpatient Prescriptions: No Action clonidine HCl 0.1 mg tablet 0.1 mg PO TID methocarbamol 750 mg tablet 750 mg PO BID methadone 10 mg/mL Concentrate 60 mg PO DAILY albuterol sulfate [Ventolin HFA] 90 mcg/actuation HFA aerosol inhaler 2 inh inhalation Q6H PRN (Reason: Shortness Of Breath) gabapentin 800 mg tablet 800 mg PO TID prednisone 20 mg tablet 40 mg PO DAILY Qty: 8 0RF
--- NOTE | 2023-06-12 15:50 | ECG_ITS ---
Test Reason : sob Blood Pressure : / mmHG Vent. Rate : 086 BPM Atrial Rate : 086 BPM P-R Int : 158 ms QRS Dur : 078 ms QT Int : 362 ms P-R-T Axes : 077 062 071 degrees QTc Int : 433 ms Normal sinus rhythm with sinus arrhythmia RSR' or QR pattern in V1 suggests right ventricular conduction delay Otherwise normal ECG When compared with ECG of 25-SEP-2022 13:30, No significant change was found Referred By: Adelita Jose Electronically Signed By:DOMINIQUE LERMA MD
[2023-06-12] MEDS: Albuterol Sulfate 5 MG, Albuterol/Iprat 2.5/0.5MG 3 ML 3 ML INHALE (16:33)
--- NOTE | 2023-06-12 16:36 | PC.NURSE ---
a&ox3, vss aside from being 86% on RA. pt put on 3L via NC - tolerating O2 administration well - resting between 92%-94%. pt c/o chest pain only on inspiration at this time. denies any other sx. pt seemingly lethargic at this time. pt admits to being chronic heroin user - states last use was 3 weeks ago. pt also stating that she is on benzodiazepines. pt currently not able to speak in a full sentence w/o difficulty. RT bedside - pt recieving nebulizer treatment. lung sounds wheezy/crackly throughout. PA also bedside speaking w/ pt discussing plan of action at this time.
--- NOTE | 2023-06-12 16:58 | PC.NURSE ---
20g IV placed in the right forearm w/o difficulty. labs drawn/urine obtained and sent to lab. tech performing ekg. nsr on the monitoring analyst. pt's partner bedside for support. call quinn placed within reach.
[2023-06-12 17:10] LABS: MANUAL DIFF FLAG NO
[2023-06-12 17:15] LABS: Basophils Percent Auto 0.4 % (0-2); Eosinophils Absolute Auto 0.6 X10*3/uL (0.0-0.4); Eosinophils Percent Auto 8.1 % (0-4); Hemoglobin 12.6 g/dl (12.0-16.0); Imm Gran Abs Auto 0.02 X10*3/uL (0.00-0.03); Imm Gran Pct Auto 0.3 % (0.0-0.4); Lymphocytes Absolute Auto 1.7 X10*3/uL (1.2-4.9); Lymphocytes Percent Auto 24.6 % (20-40); Mean Corpuscular HGB Conc 32.3 g/dl (31.0-35.0); Mean Corpuscular Hemoglobin 28.7 pg (27.0-33.0); Mean Corpuscular Volume 88.8 fL (80.0-98.0); Mean Platelet Volume 11.2 fL (9.4-12.3); Monocytes Absolute Auto 0.5 X10*3/uL (0.1-1.2); Monocytes Percent Auto 6.8 % (2-11); Neutrophils Absolute Auto 4.1 x10*3/uL (2.0-8.3); Neutrophils Percent Auto 59.8 % (45-73); Platelet Count 243 X10*3/uL (160-400); Red Blood Count 4.39 X10*6/uL (4.20-5.50); Red Cell Distribution Width 14.2 % (11.0-16.0); White Blood Count 6.9 X10*3/uL (4.8-10.8)
[2023-06-12 17:16] LABS: Appearance Urine Clear; Color Urine Yellow; Glucose Urine UA Negative (Negative); Leukocyte Esterase Urine Moderate (2+) (Negative); Nitrite Urine Negative (Negative); PH 5.5 (5.0-9.0); UMIC TRIGGER UACC YES; Urine Blood Negative (Negative); Urine Ketones Negative (Negative); Urine Protein Negative (Neg-Trace)
[2023-06-12] MEDS: Magnesium Sulfate/H2O 2 GM/50 ML PIGGYBACK IV (17:17)
[2023-06-12] MEDS: methylPREDNISolone Sod Succ 125 MG/2 ML VIAL IVPUSH (17:17)
[2023-06-12 17:20] LABS: Amphetamine Screen Urine Not Detected (Not Detect); Barbiturates, Urine Not Detected (Not Detect); Benzodiazepines Screen Urine POSITIVE (Not Detect); Cannabinoid Screen Urine Not Detected (Not Detect); Cocaine Screen Urine POSITIVE (Not Detect); Fentanyl, urine POSITIVE (Not Detect); INTERNATIONAL NORM RATIO 0.9 (0.9-1.1); Opiate Screen Urine POSITIVE (Not Detect); Phencyclidine Screen Urine Not Detected (Not Detect); Prothrombin Time 10.7 SEC (11.1-13.3)
[2023-06-12 17:21] LABS: Bacteria Urine 3+ (None Seen); RBC Urine 0-2 /HPF (0-2); UACC Culture Trigger YES; WBC Urine 21-50 /HPF (0-5)
--- NOTE | 2023-06-12 17:24 | PC.NURSE ---
pt medicated per provider order. pt remains lethargic at this time. respirations uneven and labored at this time. pt remains on O2 via NC - resting between 92%-94% on 3L. pt's partner bedside for support. call quinn placed within reach.
[2023-06-12 17:30] LABS: COVID-19 Test Negative (Negative); IDNOW Serial# 55D5AD1C
[2023-06-12 17:30] LABS: IDNOW Serial# 9DB6401D; Influenza A Negative (Negative); Influenza B2 Negative (Negative)
[2023-06-12 17:31] LABS: Alanine Aminotransferase 13 U/L (0-31); Albumin Level 4.1 g/dL (3.5-5.0); Alkaline Phosphatase 51 U/L (39-117); Anion Gap 13 (12-20); Aspartate Amino Transferase 20 U/L (5-31); Bilirubin Direct < 0.2 mg/dL (0.0-0.5); Bilirubin Total 0.2 mg/dL (0.0-1.0); Blood Urea Nitrogen 15 mg/dL (9-16); Calcium 9.4 mg/dL (8.4-10.2); Carbon Dioxide 24 mmol/L (22-29); Chloride 106 mmol/L (96-108); Creatinine Clr Calc Pharmacy 112.1; Estimated Glomerular Filt Rate > 60; Glucose Random 76 mg/dL (60-115); Potassium 4.2 mmol/L (3.3-5.1); Sodium 139 mmol/L (135-145); Total Protein 7.3 g/dL (6.5-8.0)
[2023-06-12 17:33] LABS: B Type Natriuretic Peptide 36 pg/mL (<100)
[2023-06-12 17:34] LABS: HCG Quantitative < 2 mIU/mL; Troponin-I High Sensitivity < 2.7 ng/L (<3.5-17.0)
[2023-06-12 17:56] LABS: Lactic Acid 1.5 mmol/L (0.5-2.0)
--- NOTE | 2023-06-12 18:04 | PC.NURSE ---
pt remains lethargic at this point in time. SOB/WOB subsided at this time. pt tolerating 95% on 3L via NC w/o difficulty. pt continues to have soft BP. pt still c/o chest pain that only occurs w/ inspiration. respirations now even and unlabored. call quinn placed within reach.
--- NOTE | 2023-06-12 19:07 | PC.NURSE ---
vss and up to date. nsr on the property assessment monitor. pt remains on 3L via NC at this time. tolerating well - satting between 92%-94%. pt seems to be less lethargic at this time. able to follow commands more appropriately than when she did upon arrival to ED. pt's partner bedside for support. pt able to speak in full/clear sentences w/o difficulty. respirations even and unlabored. call quinn placed within reach.
--- NOTE | 2023-06-12 19:24 | P.HPHOSP_ITS ---
History of Present Illness Date of Service: 06/12/23 Chief Complaint: Dyspnea This is a 27-year-old female with pertinent history of asthma not on home oxygen, mood disorder who presents to the emergency department for evaluation of dyspnea. Patient states her PCP and she is searching for a new PCP. She ran out of her home inhaler 5 days ago and since then she has been having dyspnea, worse with ambulation. It has been progressive and associated with cough with clear mucus production. Also has associated wheezing. No fever, chills, chest discomfort, palpitations, abdominal pain, changes in bowel habits. Denies chewing or smoking tobacco. Patient states she went to urgent care recently and was diagnosed with chlamydia. Completed antibiotics for it. Denies dysuria, urinary urgency or hesitancy In the emergency department, patient requiring supplemental oxygen Review of Systems 2 Constitutional: Constitutional: Reports fatigue and Reports lethargy Cardiovascular: Cardiovascular: Reports no additional cardiovascular complaints and Reports dyspnea on exertion Respiratory: Respiratory: Reports cough, Reports dyspnea on exertion and Reports wheezing Gastrointestinal: Gastrointestinal: Reports no additional gastrointestinal complaints Genitourinary: Genitourinary: Reports no additional female genitourinary complaints Endocrine: Endocrine: Reports fatigue Allergic/Immunologic: Allergic/Immunologic: Reports wheezing [facility] Medical History Pneumonitis Asthma Asthma Pneumonia due to COVID-19 virus COVID-19 Bipolar disorder PTSD (post-traumatic stress disorder) Depression Anxiety Asthma GERD (gastroesophageal reflux disease) Crohn's disease Opioid use disorder Family History Father Colon cancer Mother No problems noted. Brother Autism Sister Bipolar disorder Maternal Aunt Breast cancer Social History Household Members: None Housing: Apartment Housing Other:: motel Do you presently have visiting nurse or other home services: No Alcohol intake: never Patient Tobacco Use Status: Former Tobacco user Cigarette Packs Per Day: 0.33 Cigarettes Per Day: 6.6 Years Smoked: 9 Smoked in Last 30 Days: No e-Cigarette/Vaping Use: Former Use Second Hand Smoke Exposure: Yes Use of substances other than those prescribed or required for medical reasons: Yes Substance Use Type: Heroin Substance Use Frequency: Chronic Longstanding Last Used Substance: Weeks (ago) Any prior treatment program specific to substance use: No Advance Directives: Yes Advance Directives on File: Yes Advance Directives Date on File: 05/07/21 Patient : No service: No Current occupational status: unemployed Cognitive needs: No Hearing needs: No Vision needs: No Meds Allergies Allergy/AdvReac Type Severity Reaction Status Date / Time latex [LATEX] Allergy Intermediate RASH Verified 02/18/23 17:39 ondansetron [From Zofran] Allergy Intermediate Shortness Verified 02/18/23 17:39 of Breath propranolol Allergy Intermediate Shortness Verified 02/18/23 17:39 of Breath adhesive tape [ADHESIVE TAPE] AdvReac Intermediate RASH Verified 02/18/23 17:39 Home Medications Medication Instructions Recorded Confirmed Last Taken Type albuterol sulfate 90 mcg/actuation 2 inh inhalation Q6H PRN Shortness 02/18/23 02/18/23 Unknown History aerosol inhaler (Ventolin HFA) Of Breath clonidine HCl 0.1 mg tablet 0.1 mg PO TID PRN ANXIETY 02/18/23 02/18/23 Unknown History gabapentin 800 mg tablet 800 mg PO TID 02/18/23 02/18/23 Unknown History methadone 10 mg/mL oral concentrate 60 mg PO DAILY 02/18/23 02/19/23 02/17/23 History methocarbamol 750 mg tablet 750 mg PO BID 02/18/23 02/18/23 Unknown History albuterol sulfate 90 mcg/actuation 2 puff inhalation Q6H PRN wheezing 06/12/23 Unknown History aerosol inhaler (Ventolin HFA) fluticasone 500 mcg-salmeterol 50 1 ea inhalation BID 06/12/23 Unknown History mcg/dose blistr powdr for inhalation (Advair Diskus) ipratropium 0.5 mg-albuterol 3 mg 1 inhalation QID 06/12/23 Unknown History (2.5 mg base)/3 mL nebulization soln Physical Exam 2 Vital Signs and Narrative: Vital Signs: Last Vital Signs Temp 98.3 F 06/12/23 15:51 Pulse 92 06/12/23 19:06 Resp 18 06/12/23 19:06 BP 127/80 06/12/23 19:06 Pulse Ox 95 06/12/23 19:06 O2 Del Method Nasal Cannula 06/12/23 19:06 O2 Flow Rate 3 06/12/23 19:06 Oxygen Flow Rate 3 06/12/23 16:25 BMI result Body Mass Index 22.5 Young female lying in bed in mild distress on supplemental oxygen Neck supple, no JVD Regular rate and rhythm, S1-S2 heard Bilateral expiratory wheezing without crackles Abdomen soft nontender, no guarding, no rigidity Patient is awake, alert and oriented to self, place, time and person ; no focal motor deficit Psych: Normal mood No pedal edema Results Labs 06/12/23 16:54 06/12/23 16:54 Labs: Laboratory Results - last 24 hr 06/12/23 06/12/23 06/12/23 16:54 16:55 17:31 MCV 88.8 MCH 28.7 MCHC 32.3 RDW 14.2 Plt Count 243 MPV 11.2 Immature Gran % (Auto) 0.3 Neut % (Auto) 59.8 Lymph % (Auto) 24.6 [place] % (Auto) 6.8 Eos % (Auto) 8.1 H Baso % (Auto) 0.4 Lymph # (Auto) 1.7 [place] # (Auto) 0.5 Eos # (Auto) 0.6 H Baso # (Auto) 0.0 Abs Immat Gran (auto) 0.02 Absolute Neuts (auto) 4.1 Absolute Nucleated RBC 0.000 Nucleated RBC % (auto) 0.0 PT 10.7 L INR 0.9 Anion Gap 13 Estim Creat Clear Calc 112.1 Estimated GFR > 60 Random Glucose 76 Lactic Acid 1.5 Calcium 9.4 Total Bilirubin 0.2 Direct Bilirubin < 0.2 AST 20 ALT 13 Alkaline Phosphatase 51 B-Natriuretic Peptide 36 Total Protein 7.3 Albumin 4.1 Beta HCG, Quant < 2 Urine Color Yellow Urine Appearance Clear Urine pH 5.5 Ur Specific [place] 1.020 Urine Protein Negative Urine Glucose (UA) Negative Urine Ketones Negative Urine Blood Negative Urine Nitrite Negative Ur Leukocyte Esterase Moderate (2+) H Urine RBC 0-2 Urine WBC 21-50 H Ur Squamous Epith Cells 6-10 Urine Bacteria 3+ Hyaline Casts 3-5 Urine Opiates Screen POSITIVE H Urine Fentanyl Screen POSITIVE H Ur Barbiturates Screen Not Detected Ur Phencyclidine Scrn Not Detected Ur Amphetamines Screen Not Detected U Benzodiazepines Scrn POSITIVE H Urine Cocaine Screen POSITIVE H U Marijuana (THC) Screen Not Detected COVID-19 (DAVID) Negative COVID-19 Clin Com See Note Influenza Type A (TYSON) Negative Influenza Type B (TYSON) Negative Influenza A & B Note See Note Imaging Radiologist's Impressions: Impressions Chest X-Ray 06/12/23 16:16 IMPRESSION: No acute cardiopulmonary disease. Assessment and Plan (1) Acute asthma exacerbation: Status: Acute Plan This is a 27-year-old female with pertinent history of asthma not on home oxygen, mood disorder who presents to the emergency department for evaluation of dyspnea. #. Acute hypoxemic respiratory failure secondary to acute exacerbation of asthma: Will admit patient with supplemental oxygen. Scheduled and p.r.n. DuoNebs. Initiating systemic steroids. Monitor oxygen saturation and wean as tolerated. Maintain oxygen saturation greater than 90-92% #. Mood disorder: Continue home mood stabilizers #. Polysubstance use disorder: UDS positive for opiates, fentanyl, benzodiazepines and cocaine. Consulted Addiction team. Monitor for withdrawals #. Asymptomatic bacteriuria/pyuria: Defer antibiotics. Recently completed a course of doxycycline for chlamydia Med rec pending DVT prophylaxis: Lovenox Admit as inpatient and will require two night minimum hospital stay for supplemental oxygen Time Spent With Patient Time: Total time managing care of this patient today ____ minutes. Quality Stroke Does the patient have a stroke diagnosis?: No VTE Prior VTE?: No VTE Risk Level:: Medical - moderate - high VTE Device Contraindication: Treatment Not Indicated VTE Drug Contraindication: N/A - Med Ordered
--- NOTE | 2023-06-12 19:26 | PC.NURSE ---
ambulatory O2 completed at this time - pt's O2 level ranged between 88%-90% on RA. pt verbalized that she felt dizzy/lightheaded during the one lap around the ED. provider aware. pt currently speaking w/ admitting provider. pt and pt's partner aware of plan of care at this time.
[2023-06-12] MEDS: clonazePAM 1 MG TABLET 2 MG PO (19:46)
[2023-06-12] MEDS: Enoxaparin Sodium 40 MG/0.4 ML SYRINGE SUBCUT (19:47)
--- NOTE | 2023-06-12 19:47 | PHA.MEDREC ---
Pharmacy Consult ? Medication Reconciliation Pharmacy has completed the medication reconciliation. Patient reports she takes Clonazepam 2 mg TID and 1 prn. Reports she gets it from a program along with phenergan. Clonazepam is not on the PDMP. Also reported taking 1 mg of prednisone, with no recent fill history of it. Nereida Raines, PharmD
--- NOTE | 2023-06-12 19:50 | PC.NURSE ---
medicated per provider order.
[2023-06-12] MEDS: Albuterol/Iprat 2.5/0.5MG 3 ML AMPUL.NEB INHALE (21:08)
[2023-06-12] MEDS: cloNIDine HCL 0.1 MG TABLET PO (23:31)
[2023-06-13] MEDS: 0.9 % Sodium Chloride Flush 3 ML SYRINGE IVFLUSH ×2 (02:37→07:36)
[2023-06-13 04:34] VITALS: BP 114/54; PULSE 89; RESP 20; TEMP 36.4; O2SAT 92
[2023-06-13 05:13] LABS: Eosinophils Percent Auto 0.2 % (0-4); Hematocrit 34.4 % (37.0-47.0); Hemoglobin 11.2 g/dl (12.0-16.0); Imm Gran Abs Auto 0.01 X10*3/uL (0.00-0.03); Imm Gran Pct Auto 0.2 % (0.0-0.4); Lymphocytes Absolute Auto 0.6 X10*3/uL (1.2-4.9); Lymphocytes Percent Auto 14.3 % (20-40); MANUAL DIFF FLAG NO; Mean Corpuscular HGB Conc 32.6 g/dl (31.0-35.0); Mean Corpuscular Hemoglobin 28.4 pg (27.0-33.0); Mean Corpuscular Volume 87.1 fL (80.0-98.0); Mean Platelet Volume 10.3 fL (9.4-12.3); Monocytes Absolute Auto 0.1 X10*3/uL (0.1-1.2); Monocytes Percent Auto 3.2 % (2-11); Neutrophils Absolute Auto 3.3 x10*3/uL (2.0-8.3); Neutrophils Percent Auto 82.1 % (45-73); Platelet Count 247 X10*3/uL (160-400); Red Blood Count 3.95 X10*6/uL (4.20-5.50); Red Cell Distribution Width 13.7 % (11.0-16.0); White Blood Count 4.1 X10*3/uL (4.8-10.8)
[2023-06-13 05:28] LABS: Anion Gap 15 (12-20); Blood Urea Nitrogen 13 mg/dL (9-16); Calcium 9.6 mg/dL (8.4-10.2); Carbon Dioxide 21 mmol/L (22-29); Chloride 106 mmol/L (96-108); Creatinine Clr Calc Pharmacy 122.8; Estimated Glomerular Filt Rate > 60; Glucose Random 164 mg/dL (60-115); Potassium 4.5 mmol/L (3.3-5.1); Sodium 137 mmol/L (135-145)
[2023-06-13 06:30] VITALS: BP 106/65; PULSE 71; RESP 16; TEMP 36.4; O2SAT 92
--- NOTE | 2023-06-13 07:11 | PC.NURSE ---
spoke with security d/t overnight staff concerns that pts bf has been bringing drug paraphernalia in to the pt. plan to have pts boyfriend lock up his belongings prior to visiting.
[2023-06-13] MEDS: methylPREDNISolone Sod Succ 40 MG/ML VIAL IVPUSH (07:36)
[2023-06-13 07:58] VITALS: BP 127/47; PULSE 92; RESP 17; O2SAT 93
--- NOTE | 2023-06-13 08:03 | PC.NURSE ---
pt resting in bed, requesting coffee. pt O2 increased to 4L. lungs sounds rhonchi - worse on the left than on the right.
--- NOTE | 2023-06-13 08:59 | MHC.CM.PN ---
CM ATTEMPTED TO MEET WITH PT TO COMPLETE COMPANY DOCTOR PT MINIMALLY ABLE TO PARTICIPATE, FALLING ASLEEP MID-SENTENCE SHE CONFIRMS SHE LIVES ALONE AND HAS HOUSING THROUGH [facility] SHE SAYS THEY DO NOT PROVIDE ANY OTHER SERVICES AT THIS TIME WHEN ASKED IF SHE WAS STILL WITH THE [facility] SHE SAID NO DUE TO INSURANCE LAPSE SHE DOES NOT ANSWER QUESTIONS ABOUT PCP, HOWEVER [facility] HAS BEEN LISTED DURING PREVIOUS ADMISSIONS HCP ON FILE DCP TBD PENDING TREATMENT NEEDS HOME WITH RESUMPTION OF [facility] SUPPORT VIA PRIVATE TRANSPORT
--- NOTE | 2023-06-13 09:08 | MHC.RECOVRN ---
Attempted to meet with pt in ED21 after consult placed to Addiction Medicine for polysubstance use. Pt had presented to the ED with dyspnea and subsequently admitted for treatment of acute asthma exacerbation. Pt laying in bed, asleep, briefly wakes to voice but unable to stay awake for conversation. Spoke with pts RN, RN to notify t/w when pt is awake and able to engage.
[2023-06-13] MEDS: Promethazine HCL 25 MG TABLET 12.5 MG PO (10:54)
[2023-06-13] MEDS: cloNIDine HCL 0.1 MG TABLET PO (11:08)
[2023-06-13] MEDS: Albuterol/Iprat 2.5/0.5MG 3 ML AMPUL.NEB INHALE (11:19)
[2023-06-13 11:20] VITALS: PULSE 97; RESP 17; O2SAT 92
--- NOTE | 2023-06-13 11:24 | HO.PM.IMPN ---
Subjective Subjective Date of Service: 06/13/23 Interval History: seen and evaluated this morning Oozy and sleepy, waking up and responding with verbal stimuli No fever or chills breathing improving concerns over using drugs inpatient Review of Systems Review of Systems: Yes all other systems are reviewed and are negative Physical Exam Vital Signs: Vital Signs: Last Vital Signs Temp 97.5 F 06/13/23 06:30 Pulse 97 06/13/23 11:20 Resp 17 06/13/23 11:20 BP 127/47 L 06/13/23 07:58 Pulse Ox 93 06/13/23 07:58 O2 Del Method Nasal Cannula 06/13/23 07:58 O2 Flow Rate 3 06/13/23 07:58 Oxygen Flow Rate 3 06/12/23 16:25 BMI result Body Mass Index 22.5 Const: Other: Constitutional : Awake, interactive, not in distress Neck : Normal inspection, Supple Cardiovascular : RRR, no JVP, no lower extremity edema Respiratory : good bilateral air entry, no crackles, expiratory wheezes Gastrointestinal: soft, lax, Normal bowel sounds, Non tender Skin : Warm, Dry Neurological : Alert & oriented x3, No focal deficit Objective Data Active Medications Acetaminophen (Acetaminophen 325 Mg Tablet) 650 mg PO Q6H PRN PRN Reason: Pain, Mild (Pain Scale 1-3) Albuterol/Ipratropium (Albuterol/Iprat 2.5/0.5mg 3 Ml Ampul.Neb) 3 ml INHALE RQ4H WHILE AWAKE [facility] Last Admin: 06/13/23 11:19 Dose: 3 ml Documented By: DORY Albuterol/Ipratropium (Albuterol/Iprat 2.5/0.5mg 3 Ml Ampul.Neb) 3 ml INHALE Q4H PRN PRN Reason: Wheezing Clonazepam (Clonazepam 1 Mg Tablet) 2 mg PO TID PRN PRN Reason: anxiety/restlessness Clonidine HCl (Clonidine Hcl 0.1 Mg Tablet) 0.1 mg PO TID PRN; Protocol PRN Reason: ANXIETY Last Admin: 06/13/23 11:08 Dose: 0.1 mg Documented By: GLEN Enoxaparin Sodium (Enoxaparin Sodium 40 Mg/0.4 Ml Syringe) 40 mg SUBCUT Q24H [facility] Last Admin: 06/12/23 19:47 Dose: 40 mg Documented By: KIESHA Melatonin (Melatonin 3 Mg Tablet) 6 mg PO BEDTIME PRN PRN Reason: Insomnia Methocarbamol (Methocarbamol 750 Mg Tablet) 750 mg PO BID [facility] Methylprednisolone Sodium Succinate (Methylprednisolone Sod Succ 40 Mg/Ml Vial) 40 mg IVPUSH Q12H [facility] Last Admin: 06/13/23 07:36 Dose: 40 mg Documented By: GLEN Ondansetron HCl (Ondansetron Hcl 4 Mg/2 Ml Vial) 4 mg IVPUSH Q8H PRN PRN Reason: Nausea and Vomiting Promethazine HCl (Promethazine Hcl 25 Mg Tablet) 12.5 mg PO DAILY [facility] Last Admin: 06/13/23 10:54 Dose: 12.5 mg Documented By: ANGIE Sodium Chloride (0.9 % Sodium Chloride Flush 3 Ml Syringe) 3 ml IVFLUSH QSHIFT [facility] Last Admin: 06/13/23 07:36 Dose: 3 ml Documented By: GLEN Labs 06/13/23 05:08 06/13/23 05:08 Labs: Laboratory Results - last 24 hr 06/12/23 06/12/23 06/12/23 16:54 16:55 17:31 MCV 88.8 MCH 28.7 MCHC 32.3 RDW 14.2 Plt Count 243 MPV 11.2 Immature Gran % (Auto) 0.3 Neut % (Auto) 59.8 Lymph % (Auto) 24.6 [place] % (Auto) 6.8 Eos % (Auto) 8.1 H Baso % (Auto) 0.4 Lymph # (Auto) 1.7 [place] # (Auto) 0.5 Eos # (Auto) 0.6 H Baso # (Auto) 0.0 Abs Immat Gran (auto) 0.02 Absolute Neuts (auto) 4.1 Absolute Nucleated RBC 0.000 Nucleated RBC % (auto) 0.0 PT 10.7 L INR 0.9 Anion Gap 13 Estim Creat Clear Calc 112.1 Estimated GFR > 60 Random Glucose 76 Lactic Acid 1.5 Calcium 9.4 Total Bilirubin 0.2 Direct Bilirubin < 0.2 AST 20 ALT 13 Alkaline Phosphatase 51 B-Natriuretic Peptide 36 Total Protein 7.3 Albumin 4.1 Beta HCG, Quant < 2 Urine Color Yellow Urine Appearance Clear Urine pH 5.5 Ur Specific [place] 1.020 Urine Protein Negative Urine Glucose (UA) Negative Urine Ketones Negative Urine Blood Negative Urine Nitrite Negative Ur Leukocyte Esterase Moderate (2+) H Urine RBC 0-2 Urine WBC 21-50 H Ur Squamous Epith Cells 6-10 Urine Bacteria 3+ Hyaline Casts 3-5 Urine Opiates Screen POSITIVE H Urine Fentanyl Screen POSITIVE H Ur Barbiturates Screen Not Detected Ur Phencyclidine Scrn Not Detected Ur Amphetamines Screen Not Detected U Benzodiazepines Scrn POSITIVE H Urine Cocaine Screen POSITIVE H U Marijuana (THC) Screen Not Detected COVID-19 (DAVID) Negative COVID-19 Clin Com See Note Influenza Type A (TYSON) Negative Influenza Type B (TYSON) Negative Influenza A & B Note See Note 06/13/23 05:08 MCV 87.1 MCH 28.4 MCHC 32.6 RDW 13.7 Plt Count 247 MPV 10.3 Immature Gran % (Auto) 0.2 Neut % (Auto) 82.1 H Lymph % (Auto) 14.3 L [place] % (Auto) 3.2 Eos % (Auto) 0.2 Baso % (Auto) 0.0 Lymph # (Auto) 0.6 L [place] # (Auto) 0.1 Eos # (Auto) 0.0 Baso # (Auto) 0.0 Abs Immat Gran (auto) 0.01 Absolute Neuts (auto) 3.3 Absolute Nucleated RBC 0.000 Nucleated RBC % (auto) 0.0 PT INR Anion Gap 15 Estim Creat Clear Calc 122.8 Estimated GFR > 60 Random Glucose 164 H Lactic Acid Calcium 9.6 Total Bilirubin Direct Bilirubin AST ALT Alkaline Phosphatase B-Natriuretic Peptide Total Protein Albumin Beta HCG, Quant Urine Color Urine Appearance Urine pH Ur Specific [place] Urine Protein Urine Glucose (UA) Urine Ketones Urine Blood Urine Nitrite Ur Leukocyte Esterase Urine RBC Urine WBC Ur Squamous Epith Cells Urine Bacteria Hyaline Casts Urine Opiates Screen Urine Fentanyl Screen Ur Barbiturates Screen Ur Phencyclidine Scrn Ur Amphetamines Screen U Benzodiazepines Scrn Urine Cocaine Screen U Marijuana (THC) Screen COVID-19 (DAVID) COVID-19 Clin Com Influenza Type A (TYSON) Influenza Type B (TYSON) Influenza A & B Note Assessment and Plan (1) Acute asthma exacerbation: Status: Acute (2) Hypoxia: Status: Acute Plan This is a 27-year-old female with pertinent history of asthma not on home oxygen, mood disorder who presents to the emergency department for evaluation of dyspnea. # Acute hypoxemic respiratory failure secondary to acute exacerbation of asthma Scheduled and p.r.n. Christopher systemic steroids wean O2 as tolerated # Mood disorder Continue home mood stabilizers Clonazepam 1 mg bid prn # Polysubstance use disorder UDS positive for opiates, fentanyl, benzodiazepines and cocaine. Addiction team. Monitor for withdrawals # Asymptomatic bacteriuria/UTI Empirical Ceftriaxone DVT prophylaxis: Daphniex Admit as inpatient and will require two night minimum hospital stay for supplemental oxygen Time Spent With Patient Time: Total time managing care of this patient today ____ minutes. Quality Stroke Does the patient have a stroke diagnosis?: No VTE Prior VTE?: No VTE Risk Level:: Medical - moderate - high VTE Device Contraindication: Treatment Not Indicated VTE Drug Contraindication: N/A - Med Ordered
--- NOTE | 2023-06-13 11:38 | PC.NURSE ---
pt irritable requesting AM meds. informed pt she has been medicated this morning with her home meds already. per Stephanie Murrieta SOLAR INSTALLATION MANAGER pt is not supposed to be on Klonopin - it was stopped in the beginning of the year. pt continues to request this med and report withdrawals from not taking it yet today. informed Kate from the recovery team who is planning to meet with the pt today. The Klonopin has been added to pts MAR, however, no plan to give this med unless pt with increased withdrawal sx/restlessness
[2023-06-13] MEDS: cefTRIAXone sodium 1 GM in 0.9 % Sodium Chloride 50 ML IV (13:14)
--- NOTE | 2023-06-13 14:06 | PC.NURSE ---
pt reporting wanting to leave AMA. informed of risks including . informed MD velasquez of pt wanting to d/c. pts boyfriend at bedside. pt with increased lethargy with boyfriends arrival. pt O2 92% on Room air.
--- NOTE | 2023-06-13 15:17 | MHC.RECOVRN ---
Met with pt in ED21 prior to pt discharging. Pt sitting in bed, asleep, wakes to voice. Pt tearful, reporting she has been having a hard time since break up with boyfriend approx 7 months ago as well as dealing with father's cancer diagnosis. Pt reports she has been doing much better with heroin/fentanyl use, has been using 5 bags daily. Pt reports cocaine use has been more difficult to reduce. Pt also reports using illicit clonazepam, 2 mg at least TID. Pt reports that using benzodiazepines has helped reduce opioid use. Pt is not on any MOUD. Pt is not interested in restarting MOUD while in the hospital. Pt denies current withdrawal symptoms, appears to be resting comfortably. Pt denies other questions or concerns at this time. Discussed with Stephanie Murrieta APRN.
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
== END 2023-06-13 14:40 | disposition left against medical advice (07) | DRG 141 ==
LOC: HO.ED 19:28 → HO.EDOVER 19:33 → HO.S3 06-13 11:57
PROVIDERS: Physician Assistant; Admitting Provider Student in an Organized Health Care Education/Training Program; Emergency Provider Emergency Medicine; PCP Nurse Practitioner Family; Visit Provider Student in an Organized Health Care Education/Training Program
DX: J45.901 Unspecified asthma with (acute) exacerbation (principal); J96.01 Acute respiratory failure with hypoxia; F11.20 Opioid dependence, uncomplicated; F39 Unspecified mood [affective] disorder; F19.90 Other psychoactive substance use, unspecified, uncomplicated; N39.0 Urinary tract infection, site not specified; Z20.822 Contact with and (suspected) exposure to COVID-19; Z79.51 Long term (current) use of inhaled steroids; Z91.040 Latex allergy status; Z79.52 Long term (current) use of systemic steroids; Z79.899 Other long term (current) drug therapy
CPT/HCPCS: 36415; 71046; 80048; 80076; 80307; 81001; 83605; 83880; 84484; 84702; 85025; 85610; 87040; 87086; 87088; 87186; 87502; 87635; 93005; 94640; 99285; J0696; J1650; J2920; J2930; J3475

== ENCOUNTER → 2023-06-12 19:22 | Outpatient (BNV) | payer OTHER, SELFPAY | PROVIDERS: Admitting Provider Student in an Organized Health Care Education/Training Program; Emergency Provider Emergency Medicine; Visit Provider Student in an Organized Health Care Education/Training Program | DX: J45.901 Unspecified asthma with (acute) exacerbation (principal); J96.01 Acute respiratory failure with hypoxia | CPT/HCPCS: 99222; 99232 ==

== ENCOUNTER 2023-06-14 11:32 | Emergency (ER) | payer OTHER, SELFPAY ==
[2023-06-14 11:43] VITALS: BP 127/78; PULSE 104; RESP 20; TEMP 37.1; O2SAT 95; BMI 18.3
--- NOTE | 2023-06-14 11:54 | ED_ITS ---
HPI - Asthma General Chief Complaint: Dyspnea Stated Complaint: Diff breathing Time Seen by Provider: 06/14/23 11:37 Source: patient and old records reviewed Mode of arrival: ambulatory Limitations: no limitations History of Present Illness HPI Narrative: 27 yo female with history of severe persistent asthma since infancy, hx pneumonitis, mood disorder, PTSD, hx opioid use disorder, depression who presents back to the ER today after she left AMA yesterday for asthma exacerbation and hypoxia. She initially presented back asking where her prescriptions were sent but upon further questioning patient had audible wheezing and increased WOB. She was found to be hypoxic 89-90% on RA with diffuse wheezing throughout and mild tachypnea. She states she left yesterday because she sat in the ER for >24 hours waiting for a bed and felt like nothing was being done for her. She admits to going home and not feeling well, ongoing SOB and wheezing. She states she has had respiratory issues since she was born. Had RSV as an infant. Full term child. Last admitted here in January for severe asthma exacerbation. She states she continues to smoke. MD complaint: shortness of breath and wheezing Onset (ago): day(s) Severity: similar to prior Context: ran out of meds, medication non-compliance and smoke exposure Associated symptoms: productive cough and chest pain Asthma History: childhood onset Related Data Home Medications Medication Instructions Recorded Confirmed clonidine HCl 0.1 mg tablet 0.1 mg PO TID PRN ANXIETY 02/18/23 06/12/23 methocarbamol 750 mg tablet 750 mg PO BID 02/18/23 06/12/23 albuterol sulfate 90 mcg/actuation 2 puff inhalation Q6H PRN wheezing 06/12/23 06/12/23 aerosol inhaler (Ventolin HFA) clonazepam 2 mg tablet 2 mg PO DAILY PRN Anxiety 06/12/23 06/12/23 clonazepam 2 mg tablet 2 mg PO TID 06/12/23 06/12/23 fluticasone 500 mcg-salmeterol 50 1 ea inhalation BID 06/12/23 06/12/23 mcg/dose blistr powdr for inhalation (Advair Diskus) ipratropium 0.5 mg-albuterol 3 mg 3 ml inhalation Q4-6H PRN WHEEZING 06/12/23 06/12/23 (2.5 mg base)/3 mL nebulization soln ipratropium 0.5 mg-albuterol 3 mg 3 ml inhalation TID 06/12/23 06/12/23 (2.5 mg base)/3 mL nebulization soln prednisone 1 mg tablet 1 mg PO DAILY 06/12/23 06/12/23 promethazine 12.5 mg tablet 12.5 mg PO DAILY 06/12/23 06/12/23 Previous Rx's Medication Instructions Recorded albuterol sulfate 2.5 mg/0.5 mL 5 mg inhalation Q4H PRN shortness 06/14/23 solution for nebulization of breath or wheezing #30 ea albuterol sulfate 90 mcg/actuation 1 inh inhalation QID PRN shortness 06/14/23 aerosol inhaler of breath or wheezing #6.7 grams azithromycin 250 mg tablet See Rx Instructions PO .COMPLEX #6 06/14/23 (Zithromax Z-Charles) tabs fluticasone propionate 50 1 spray intranasal Q12H #16 grams 06/14/23 mcg/actuation nasal spray,suspension prednisone 10 mg tablets in a dose See Taper PO DAILY #48 ea 06/14/23 pack Allergies Allergy/AdvReac Type Severity Reaction Status Date / Time latex [LATEX] Allergy Intermediate RASH Verified 02/18/23 17:39 ondansetron [From Zofran] Allergy Intermediate Shortness Verified 02/18/23 17:39 of Breath propranolol Allergy Intermediate Shortness Verified 02/18/23 17:39 of Breath adhesive tape [ADHESIVE TAPE] AdvReac Intermediate RASH Verified 02/18/23 17:39 Review of Systems Review of Systems: Yes all other systems are reviewed and are negative PMF Past Medical History Medical History Pneumonitis Asthma Asthma Pneumonia due to COVID-19 virus COVID-19 Bipolar disorder PTSD (post-traumatic stress disorder) Depression Anxiety Asthma GERD (gastroesophageal reflux disease) Crohn's disease Opioid use disorder Family History Family History Father Colon cancer Mother No problems noted. Brother Autism Sister Bipolar disorder Maternal Aunt Breast cancer Social History Social History Household Members: None Housing: Apartment Housing Other:: motel Do you presently have visiting nurse or other home services: No Alcohol intake: never Patient Tobacco Use Status: Former Tobacco user Cigarette Packs Per Day: 0.33 Cigarettes Per Day: 6.6 Years Smoked: 9 e-Cigarette/Vaping Use: Former Use Second Hand Smoke Exposure: Yes Substance Use Type: Heroin Advance Directives: Yes Advance Directives on File: Yes Advance Directives Date on File: 05/07/21 service: No Current occupational status: unemployed Cognitive needs: No Hearing needs: No Vision needs: No Physical Exam Vital Signs: Vital Signs: Last Vital Signs Temp 98.7 F 06/14/23 11:43 Pulse 84 06/14/23 13:00 Resp 16 06/14/23 12:14 BP 127/78 06/14/23 11:43 Pulse Ox 96 06/14/23 13:00 O2 Del Method Room Air 06/14/23 13:00 O2 Flow Rate 2.5 06/14/23 12:40 Oxygen Flow Rate 2.5 06/14/23 11:43 BMI result Body Mass Index 18.3 Appearance: Alert. Oriented X3. Well nourished and developed Head: normocephalic, atraumatic. Eyes: Pupils equal, round and reactive to light. ENT: Pharynx normal. No tonsillar swelling or exudate. Neck: Normal inspection. Neck supple. CVS: Normal heart rate and rhythm. Pulses normal. Respiratory: Mild respiratory distress, RR low 20s. Breath sounds with diffuse inspiratory and expiratory wheezes and scattered rhonchi. Abdomen: Soft and nontender. +BS x4 Skin: Skin warm and dry. Normal skin color. Normal skin turgor. No rashes. Extremities: No lower extremity edema. No joint swelling. Neuro/psych: Oriented X 3. No motor deficit. No sensory deficit. CN II-XII intact. Normal speech and cognition. Course Reevaluation(s) Reevaluation #1: Upon re-evaluation, aeration wheezing or significantly improved. She is speaking in complete sentences and not any research distress Saturating 96% on room air. She is feeling much better. She would like to be discharged home. Will prescribe prednisone taper, albuterol nebulizer treatments along with albuterol inhaler, Flonase, azithromycin. Will refer to pulmonology. Importance of smoking cessation discussed. Comfortable discharge home, strict return precautions were discussed. Time: 13:17 Medications Administered Discontinued Medications Generic Name Dose Route Start Last Admin Trade Name Pro PRN Reason Stop Dose Admin Albuterol Sulfate 2.5 mg/ 5 mg 06/14/23 12:09 06/14/23 12:13 Albuterol Sulfate 2.5 mg INHALE 06/14/23 12:10 5 mg ONCE ONE Administration Prednisone 60 mg 06/14/23 11:52 06/14/23 12:01 Prednisone 20 Mg Tablet PO 06/14/23 11:53 60 mg ONCE ONE Administration Medical Decision Making Medical Decision Making MDM Narrative: 27 y/o female with history of severe persistent asthma, opioid use disorder, mood disorder presenting with SOB, wheezing and hypoxia after leaving AMA yesterday Initially hypoxic to 89% on RA with diffuse wheezing and increased WOB. bronch protocol ordered - she was given albuterol 5mg and prednisone 60mg with signficiant improvement. SpO2 96% on RA. aeration and wheezing improved. we discussed readmission but patient would like to go home. she states she has a neb machine at home just needs refills we discussed importance of smoking cession and monitoring of SPO2 at home with pulse oximeter comfortable w/ discharge home given significant improvement strict return precautions were discussed Differential Diagnosis Differential Diagnoses: The differential diagnosis associated with the presentation includes status asthmaticus, acute asthma exacerbation, pneumonia, bronchitis, COPD exacerbation Admission/Observation Consideration of admission/observation: Escalation of care including admission/observation considered External Record Review External record reviewed: Inpatient record, Outpatient record, Prior outpatient labs and Prior outpatient radiology Prescription Management I considered prescription management with: Antibiotic and Other (albuterol) Chronic Conditions Patient?s care impacted by: Other (asthma) Social Determinants Patient?s care significantly limited by Social Determinants of Health including: Alcoholism and drug addiction in family and Other Social Determinant of Health Critical Care Time Critical Care Time Critical Care Time: Yes Total Critical Care Time: 36 Attestation: I have personally provided critical care time exclusive of time spent on separately billable procedures. Time includes review of lab data, radiology results, discussion with consultants, and monitoring for potential decompensation. Intervention performed as documented. Discharge Plan Discharge Clinical Impression: Asthma exacerbation Qualifiers: Asthma severity: unspecified severity Asthma persistence: unspecified Qualified Code(s): J45.901 - Unspecified asthma with (acute) exacerbation Patient Disposition: Home, Self-Care Instructions: Asthma (DC) Additional Instructions: Start your Prednisone taper, starting tomorrow. You were given 1st dose in the emergency room today. Complete the entire course and do not miss any doses. Recommend using her albuterol nebulizer every 4 hours until your exacerbation is improved. Use your albuterol inhaler as needed for shortness of breath and wheezing once you are feeling better. Take the prescribed antibiotics as directed, complete the entire course and do not miss any doses It is important the follow-up with the environmental health manager as soon as possible. Call for an appointment. Do your best to STOP SMOKING! If you develop new or worsening symptoms call 911 or come back to the ER for further evaluation. Prescriptions: New azithromycin [Zithromax Z-Charles] 250 mg tablet See Rx Instructions .ROUTE .COMPLEX Qty: 6 0RF Rx Instructions: take 500 mg today (day 1), then 250 mg for 4 days (days 2-5) prednisone 10 mg tablets,dose pack See Taper PO DAILY Qty: 48 0RF Taper: Prednisone 40 mg daily for 3 Days and 0 Hour 30 mg daily for 3 Days and 0 Hour 20 mg daily for 3 Days and 0 Hour 10 mg daily for 3 Days and 0 Hour albuterol sulfate 90 mcg/actuation HFA aerosol inhaler 1 inh inhalation QID PRN (Reason: shortness of breath or wheezing) Qty: 6.7 0RF albuterol sulfate 2.5 mg/0.5 mL solution for nebulization 5 mg inhalation Q4H PRN (Reason: shortness of breath or wheezing) Qty: 30 0RF fluticasone propionate 50 mcg/actuation spray,suspension 1 spray intranasal Q12H Qty: 16 0RF Rx Instructions: administer into each nostril No Action clonidine HCl 0.1 mg tablet 0.1 mg PO TID PRN (Reason: ANXIETY ) methocarbamol 750 mg tablet 750 mg PO BID ipratropium-albuterol 0.5 mg-3 mg(2.5 mg base)/3 mL solution for nebulization 3 ml inhalation TID fluticasone propion-salmeterol [Advair Diskus] 500-50 mcg/dose blister with device 1 ea INHALATION BID albuterol sulfate [Ventolin HFA] 90 mcg/actuation HFA aerosol inhaler 2 puff inhalation Q6H PRN (Reason: wheezing) promethazine [Phenergan] 12.5 mg Tablet 12.5 mg PO DAILY clonazepam 2 mg Tablet 2 mg PO DAILY PRN (Reason: Anxiety) clonazepam 2 mg Tablet 2 mg PO TID ipratropium-albuterol 0.5 mg-3 mg(2.5 mg base)/3 mL solution for nebulization 3 ml inhalation Q4-6H PRN (Reason: WHEEZING ) prednisone 1 mg Tablet 1 mg PO DAILY Referrals: [facility] [Provider Group] (severe persistent asthma)
[2023-06-14] MEDS: predniSONE 20 MG TABLET 60 MG PO (12:01)
[2023-06-14] MEDS: Albuterol Sulfate 2.5 MG, Albuterol Sulfate (0.083%) 2.5 MG 5 MG INHALE (12:13)
[2023-06-14 12:14] VITALS: PULSE 104; RESP 16; O2SAT 96
[2023-06-14 12:40] VITALS: O2SAT 96
--- NOTE | 2023-06-14 12:59 | PC.NURSE ---
breathing tx completed pt SpO2 96% on RA. 84bpm
[2023-06-14 13:00] VITALS: PULSE 84; O2SAT 96
--- NOTE | 2023-06-14 14:31 | PC.NURSE ---
pt called re: rx's for albuterol JANINE and yuridia- spoke with Lori @ [facility] in [facility] that JANINE was picked up
== END 2023-06-14 13:36 | disposition home or self-care (01) ==
PROVIDERS: Emergency Provider Internal Medicine
DX: J45.901 Unspecified asthma with (acute) exacerbation (principal); R06.02 Shortness of breath; Z79.899 Other long term (current) drug therapy; Z87.891 Personal history of nicotine dependence
CPT/HCPCS: 94640; 99283; 99284

== ENCOUNTER 2023-06-20 21:32 | Inpatient (IN) | payer OTHER, SELFPAY ==
--- NOTE | ~2023-06-20 | XR_ITS ---
EXAMINATION: XR CHEST CLINICAL INFORMATION: SOB. COMPARISON: Chest 06/12/2023 TECHNIQUE: Frontal view of the chest was obtained. FINDINGS: The lungs are well-expanded and clear of acute process. The cardiomediastinal silhouette is within normal limits. There is mild axial scoliosis of thoracolumbar spine. XR/XR chest 1V IMPRESSION: No acute cardiopulmonary process seen. No change from 06/12/2023.
[2023-06-20 21:36] VITALS: BP 170/110; PULSE 112; PULSE 118; RESP 20; O2SAT 100; O2SAT 90; BMI 23.2
--- NOTE | 2023-06-20 21:39 | ECG_ITS ---
Test Reason : SOB Blood Pressure : / mmHG Vent. Rate : 120 BPM Atrial Rate : 120 BPM P-R Int : 156 ms QRS Dur : 072 ms QT Int : 302 ms P-R-T Axes : 085 079 088 degrees QTc Int : 426 ms Sinus tachycardia Biatrial enlargement RSR' or QR pattern in V1 suggests right ventricular conduction delay Abnormal ECG When compared with ECG of 12-JUN-2023 16:30, Heart rate has increased Referred By: Gail Singh Electronically Signed By:DOMINIQUE LERMA MD
--- NOTE | 2023-06-20 21:42 | ED_ITS ---
HPI - SOB/Dyspnea General Chief Complaint: Dyspnea Stated Complaint: Respiratory Distress Time Seen by Provider: 06/20/23 21:37 Source: EMS Mode of arrival: EMS Limitations: other (Severe shortness of breath) History of Present Illness HPI Narrative: Patient comes to the emergency room via ambulance from home. Patient told EMS that she has been having significant asthma exacerbations over the last couple of days. Patient known to use multiple drugs, patient denies using any drugs lately. According to EMS, patient's lowest oxygen saturation was in the 90s. Patient was significantly tachypneic and diaphoretic, unclear if patient use drugs. Patient was given per EMS 125 mg of Solu-Medrol, 2 g of magnesium, albuterol, started on CPAP prior to arriving to the emergency room Related Data Home Medications Medication Instructions Recorded Confirmed clonidine HCl 0.1 mg tablet 0.1 mg PO TID PRN ANXIETY 02/18/23 06/12/23 methocarbamol 750 mg tablet 750 mg PO BID 02/18/23 06/12/23 albuterol sulfate 90 mcg/actuation 2 puff inhalation Q6H PRN wheezing 06/12/23 06/12/23 aerosol inhaler (Ventolin HFA) clonazepam 2 mg tablet 2 mg PO DAILY PRN Anxiety 06/12/23 06/12/23 clonazepam 2 mg tablet 2 mg PO TID 06/12/23 06/12/23 fluticasone 500 mcg-salmeterol 50 1 ea inhalation BID 06/12/23 06/12/23 mcg/dose blistr powdr for inhalation (Advair Diskus) ipratropium 0.5 mg-albuterol 3 mg 3 ml inhalation Q4-6H PRN WHEEZING 06/12/23 06/12/23 (2.5 mg base)/3 mL nebulization soln ipratropium 0.5 mg-albuterol 3 mg 3 ml inhalation TID 06/12/23 06/12/23 (2.5 mg base)/3 mL nebulization soln prednisone 1 mg tablet 1 mg PO DAILY 06/12/23 06/12/23 promethazine 12.5 mg tablet 12.5 mg PO DAILY 06/12/23 06/12/23 Previous Rx's Medication Instructions Recorded albuterol sulfate 2.5 mg/0.5 mL 5 mg inhalation Q4H PRN shortness 06/14/23 solution for nebulization of breath or wheezing #30 ea albuterol sulfate 90 mcg/actuation 1 inh inhalation QID PRN shortness 06/14/23 aerosol inhaler of breath or wheezing #6.7 grams azithromycin 250 mg tablet See Rx Instructions PO .COMPLEX #6 06/14/23 (Zithromax Z-Charles) tabs fluticasone propionate 50 1 spray intranasal Q12H #16 grams 06/14/23 mcg/actuation nasal spray,suspension prednisone 10 mg tablets in a dose See Taper PO DAILY #48 ea 06/14/23 pack Allergies Allergy/AdvReac Type Severity Reaction Status Date / Time latex [LATEX] Allergy Intermediate RASH Verified 02/18/23 17:39 ondansetron [From Zofran] Allergy Intermediate Shortness Verified 02/18/23 17:39 of Breath propranolol Allergy Intermediate Shortness Verified 02/18/23 17:39 of Breath adhesive tape [ADHESIVE TAPE] AdvReac Intermediate RASH Verified 02/18/23 17:39 Review of Systems 2 Review of Systems: Constitutional : No Weight loss, No Fever, No Chills, No Night Sweats, No Fatigue, No Malaise ENT/Mouth : No Hearing loss, No Ear Pain, No Nasal Congestion, No Sinus Pain, No Hoarseness, No sore throat, No Rhinorrhea, No Swallowing Difficulty Eyes: No Eye Pain, No Swelling, No Redness, No Foreign Body, No Discharge, No Vision Changes Cardiovascular : No Chest Pain, No SOB, No Dyspnea on Exertion, No Orthopnea, No Edema, No Palpitations Respiratory : Complaining of cough, wheezing, shortness of breath Gastrointestinal : No Nausea, No Vomiting, No Diarrhea, No Constipation, No abdominal Pain, No Hematochezia, No Melena Genitourinary : no irregular bleeding, No Dysuria, No Urinary Frequency, No Hematuria, No Urinary Incontinence, No Urgency, No Flank Pain, No Urinary Flow Changes, No Hesitancy Musculoskeletal : No joint pain, No Myalgias, No Joint Swelling Skin : No Skin Lesions, No rash Neuro : No Weakness, No Numbness, No Paresthesias, No Loss of Consciousness, No Dizziness, No Headache Psych : No Anxiety/Panic, No Depression, No SI/HI/AH/VH, No Social Issues, Heme/Lymph: No Bruising, No Bleeding,No Lymphadenopathy Endocrine : No Polyuria, No Polydipsia, No Temperature Intolerance [facility] Past Medical History Medical History Pneumonitis Asthma Asthma Pneumonia due to COVID-19 virus COVID-19 Bipolar disorder PTSD (post-traumatic stress disorder) Depression Anxiety Asthma GERD (gastroesophageal reflux disease) Crohn's disease Opioid use disorder Family History Family History Father Colon cancer Mother No problems noted. Brother Autism Sister Bipolar disorder Maternal Aunt Breast cancer Social History Social History Household Members: None Housing: Apartment Housing Other:: motel Do you presently have visiting nurse or other home services: No Alcohol intake: never Patient Tobacco Use Status: Former Tobacco user Cigarette Packs Per Day: 0.33 Cigarettes Per Day: 6.6 Years Smoked: 9 e-Cigarette/Vaping Use: Former Use Second Hand Smoke Exposure: Yes Substance Use Type: Heroin Advance Directives: Yes Advance Directives on File: Yes Advance Directives Date on File: 05/07/21 service: No Current occupational status: unemployed Cognitive needs: No Hearing needs: No Vision needs: No Physical Exam 2 Vital Signs: Vital Signs: Last Vital Signs Temp 99 F 06/20/23 23:59 Pulse 104 H 06/21/23 00:54 Resp 16 06/21/23 00:54 BP 113/65 06/21/23 00:54 Pulse Ox 100 06/21/23 00:54 O2 Del Method CPAP 06/21/23 00:54 BMI result Body Mass Index 23.2 Const: Other: Appearance: Alert. Oriented X3. Somnolent, easily arousable to voice Eyes: Pupils equal, round and reactive to light. ENT: Pharynx normal. Neck: Normal inspection. Neck supple. No lymph nodes noted. No crepitus CVS: Normal heart rate and rhythm. Pulses normal. Normal S1 and S2 Respiratory: Patient is moderate respiratory distress, wheezing bilaterally, decreased air movement bilaterally Abdomen: Soft and nontender. No rigidity. No distention. Skin: Skin warm and dry. Normal skin color. Normal skin turgor. Extremities: No lower extremity edema. No Lacerations. No Rash Neuro: Oriented X 3. No motor deficit. No sensory deficit. Moving all extremities. No slurred speech. CN 2 through 12 grossly intact Psych: calm, cooperative, normal affect Course Course Course Narrative: -patient is on CPAP at this time, patient receiving more albuterol treatment. -patient's labs and imaging pending. Medications Administered Discontinued Medications Generic Name Dose Route Start Last Admin Trade Name Pro PRN Reason Stop Dose Admin Albuterol Sulfate 10 mg 06/20/23 21:41 06/20/23 21:47 Albuterol Sulfate (0.083%) 2.5 Mg/3 Ml Vial.Neb INHALE 06/20/23 21:42 10 mg ONCE ONE Administration Sodium Chloride 1,000 mls @ 999 mls/hr 06/20/23 21:38 06/20/23 23:20 Ns IVCONT 06/20/23 22:38 Infused .Q1H1M ONE Infusion Prochlorperazine Edisylate 10 mg 06/20/23 21:44 06/20/23 22:23 Prochlorperazine Edisylate 10 Mg/2 Ml Vial IVPUSH 06/20/23 21:45 10 mg ONCE ONE Administration Medical Decision Making Medical Decision Making [facility] Narrative: -interpretation of labs, hematology at baseline, chemistry at baseline, lactic acid normal, test negative, troponin negative, BNP normal. Urine toxicology positive for opiates, fentanyl, cocaine, benzos, marijuana -my interpretation of chest x-ray: No acute process -when patient arrived, patient was significantly wheezing, very tight, patient received multiple nebulization treatments and stacked DuoNebs. -patient remain on CPAP for a few hours, initial pCO2 was a bit elevated, after hours of CPAP, venous gases were obtained, now back to normal. -Patient remains very somnolent, arousable to voice. Patient will be admitted for asthma exacerbation -I discussed the patient with Dr. Leos, patient being admitted Differential Diagnosis Differential Diagnoses: The differential diagnosis associated with the presentation includes (Asthma exacerbation, drug overdose, pneumonia) Admission/Observation Consideration of admission/observation: Escalation of care including admission/observation considered Consult Healthcare Provider Management of the patient was discussed with: Hospitalist Lab Data [facility] Lab Attestation statement: I reviewed the patient's lab results. 06/20/23 21:51 06/20/23 21:51 Labs: Lab Results 06/20/23 06/20/23 06/20/23 Range/Units 21:51 21:51 21:51 WBC 8.7 (4.8-10.8) X10*3/uL RBC 3.84 L (4.20-5.50) X10*6/uL Hgb 11.0 L (12.0-16.0) g/dl Hct 34.2 L (37.0-47.0) % MCV 89.1 (80.0-98.0) fL MCH 28.6 (27.0-33.0) pg MCHC 32.2 (31.0-35.0) g/dl RDW 14.3 (11.0-16.0) % Plt Count 162 D (160-400) X10*3/uL MPV 9.9 (9.4-12.3) fL Immature Gran % (Auto) 0.2 (0.0-0.4) % Neut % (Auto) 74.7 H (45-73) % Lymph % (Auto) 11.9 L (20-40) % Weston % (Auto) 8.7 (2-11) % Eos % (Auto) 4.4 H (0-4) % Baso % (Auto) 0.1 (0-2) % Lymph # (Auto) 1.0 L (1.2-4.9) X10*3/uL Weston # (Auto) 0.8 (0.1-1.2) X10*3/uL Eos # (Auto) 0.4 (0.0-0.4) X10*3/uL Baso # (Auto) 0.0 (0.0-0.2) X10*3/uL Abs Immat Gran (auto) 0.02 (0.00-0.03) X10*3/uL Absolute Neuts (auto) 6.5 (2.0-8.3) x10*3/uL Absolute Nucleated RBC 0.000 (0.0-0.012) X10*3/uL Nucleated RBC % (auto) 0.0 (0.0-0.2) /100WBC PT 12.0 (11.1-13.3) SEC INR 1.0 (0.9-1.1) VBG pH (7.32-7.43) VBG pCO2 mmHg VBG pO2 mmHg VBG HCO3 (22-26) mmol/L VBG O2 Saturation % VBG Base Excess mmol/L Sodium 139 (135-145) mmol/L Potassium 4.2 (3.3-5.1) mmol/L Chloride 103 (96-108) mmol/L Carbon Dioxide 26 (22-29) mmol/L Anion Gap 14 (12-20) BUN 11 (9-16) mg/dL Creatinine 0.58 (0.5-1.4) mg/dL Estim Creat Clear Calc 128.0 Estimated GFR > 60 Random Glucose 114 (60-115) mg/dL Lactic Acid (0.5-2.0) mmol/L Calcium 8.5 D (8.4-10.2) mg/dL Magnesium 3.2 H Cancelled (1.6-2.6) mg/dL Total Bilirubin 0.2 (0.0-1.0) mg/dL Direct Bilirubin < 0.2 (0.0-0.5) mg/dL AST 266 H (5-31) U/L ALT 419 H (0-31) U/L Alkaline Phosphatase 73 (39-117) U/L Troponin I High Sens < 2.7 (<3.5-17.0) ng/L B-Natriuretic Peptide 38 (<100) pg/mL Total Protein 6.8 (6.5-8.0) g/dL Albumin 4.1 (3.5-5.0) g/dL Beta HCG, Quant < 2 mIU/mL Urine Color Urine Appearance Urine pH (5.0-9.0) Ur Specific [place] (1.005-1.025) Urine Protein (Neg-Trace) mg/dL Urine Glucose (UA) (Negative) mg/dL Urine Ketones (Negative) mg/dL Urine Blood (Negative) Urine Nitrite (Negative) Ur Leukocyte Esterase (Negative) Urine Opiates Screen (Not Detect) Urine Fentanyl Screen (Not Detect) Ur Barbiturates Screen (Not Detect) Ur Phencyclidine Scrn (Not Detect) Ur Amphetamines Screen (Not Detect) U Benzodiazepines Scrn (Not Detect) Urine Cocaine Screen (Not Detect) U Marijuana (THC) Screen (Not Detect) Ethyl Alcohol < 10 Cancelled mg/dL COVID-19 (DAVID) (Negative) COVID-19 Clin Com Influenza Type A (TYSON) (Negative) Influenza Type B (TYSON) (Negative) Influenza A & B Note 06/20/23 06/20/23 06/20/23 Range/Units 21:52 21:57 21:59 WBC (4.8-10.8) X10*3/uL RBC (4.20-5.50) X10*6/uL Hgb (12.0-16.0) g/dl Hct (37.0-47.0) % MCV (80.0-98.0) fL MCH (27.0-33.0) pg MCHC (31.0-35.0) g/dl RDW (11.0-16.0) % Plt Count (160-400) X10*3/uL MPV (9.4-12.3) fL Immature Gran % (Auto) (0.0-0.4) % Neut % (Auto) (45-73) % Lymph % (Auto) (20-40) % Weston % (Auto) (2-11) % Eos % (Auto) (0-4) % Baso % (Auto) (0-2) % Lymph # (Auto) (1.2-4.9) X10*3/uL Weston # (Auto) (0.1-1.2) X10*3/uL Eos # (Auto) (0.0-0.4) X10*3/uL Baso # (Auto) (0.0-0.2) X10*3/uL Abs Immat Gran (auto) (0.00-0.03) X10*3/uL Absolute Neuts (auto) (2.0-8.3) x10*3/uL Absolute Nucleated RBC (0.0-0.012) X10*3/uL Nucleated RBC % (auto) (0.0-0.2) /100WBC PT (11.1-13.3) SEC INR (0.9-1.1) VBG pH 7.30 L (7.32-7.43) VBG pCO2 67 mmHg VBG pO2 55 mmHg VBG HCO3 33 H (22-26) mmol/L VBG O2 Saturation 82.0 % VBG Base Excess 5.2 mmol/L Sodium (135-145) mmol/L Potassium (3.3-5.1) mmol/L Chloride (96-108) mmol/L Carbon Dioxide (22-29) mmol/L Anion Gap (12-20) BUN (9-16) mg/dL Creatinine (0.5-1.4) mg/dL Estim Creat Clear Calc Estimated GFR Random Glucose (60-115) mg/dL Lactic Acid 1.3 (0.5-2.0) mmol/L Calcium (8.4-10.2) mg/dL Magnesium (1.6-2.6) mg/dL Total Bilirubin (0.0-1.0) mg/dL Direct Bilirubin (0.0-0.5) mg/dL AST (5-31) U/L ALT (0-31) U/L Alkaline Phosphatase (39-117) U/L Troponin I High Sens (<3.5-17.0) ng/L B-Natriuretic Peptide (<100) pg/mL Total Protein (6.5-8.0) g/dL Albumin (3.5-5.0) g/dL Beta HCG, Quant mIU/mL Urine Color Urine Appearance Urine pH (5.0-9.0) Ur Specific [place] (1.005-1.025) Urine Protein (Neg-Trace) mg/dL Urine Glucose (UA) (Negative) mg/dL Urine Ketones (Negative) mg/dL Urine Blood (Negative) Urine Nitrite (Negative) Ur Leukocyte Esterase (Negative) Urine Opiates Screen (Not Detect) Urine Fentanyl Screen (Not Detect) Ur Barbiturates Screen (Not Detect) Ur Phencyclidine Scrn (Not Detect) Ur Amphetamines Screen (Not Detect) U Benzodiazepines Scrn (Not Detect) Urine Cocaine Screen (Not Detect) U Marijuana (THC) Screen (Not Detect) Ethyl Alcohol mg/dL COVID-19 (DAVID) Negative (Negative) COVID-19 Clin Com See Note Influenza Type A (TYSON) Negative (Negative) Influenza Type B (TYSON) Negative (Negative) Influenza A & B Note See Note 06/20/23 06/21/23 Range/Units 23:52 00:56 WBC (4.8-10.8) X10*3/uL RBC (4.20-5.50) X10*6/uL Hgb (12.0-16.0) g/dl Hct (37.0-47.0) % MCV (80.0-98.0) fL MCH (27.0-33.0) pg MCHC (31.0-35.0) g/dl RDW (11.0-16.0) % Plt Count (160-400) X10*3/uL MPV (9.4-12.3) fL Immature Gran % (Auto) (0.0-0.4) % Neut % (Auto) (45-73) % Lymph % (Auto) (20-40) % Weston % (Auto) (2-11) % Eos % (Auto) (0-4) % Baso % (Auto) (0-2) % Lymph # (Auto) (1.2-4.9) X10*3/uL Weston # (Auto) (0.1-1.2) X10*3/uL Eos # (Auto) (0.0-0.4) X10*3/uL Baso # (Auto) (0.0-0.2) X10*3/uL Abs Immat Gran (auto) (0.00-0.03) X10*3/uL Absolute Neuts (auto) (2.0-8.3) x10*3/uL Absolute Nucleated RBC (0.0-0.012) X10*3/uL Nucleated RBC % (auto) (0.0-0.2) /100WBC PT (11.1-13.3) SEC INR (0.9-1.1) VBG pH 7.40 (7.32-7.43) VBG pCO2 39 mmHg VBG pO2 147 mmHg VBG HCO3 24 (22-26) mmol/L VBG O2 Saturation 100.0 % VBG Base Excess 0.3 mmol/L Sodium (135-145) mmol/L Potassium (3.3-5.1) mmol/L Chloride (96-108) mmol/L Carbon Dioxide (22-29) mmol/L Anion Gap (12-20) BUN (9-16) mg/dL Creatinine (0.5-1.4) mg/dL Estim Creat Clear Calc Estimated GFR Random Glucose (60-115) mg/dL Lactic Acid (0.5-2.0) mmol/L Calcium (8.4-10.2) mg/dL Magnesium (1.6-2.6) mg/dL Total Bilirubin (0.0-1.0) mg/dL Direct Bilirubin (0.0-0.5) mg/dL AST (5-31) U/L ALT (0-31) U/L Alkaline Phosphatase (39-117) U/L Troponin I High Sens (<3.5-17.0) ng/L B-Natriuretic Peptide (<100) pg/mL Total Protein (6.5-8.0) g/dL Albumin (3.5-5.0) g/dL Beta HCG, Quant mIU/mL Urine Color Yellow Urine Appearance Clear Urine pH 5.5 (5.0-9.0) Ur Specific [place] 1.025 (1.005-1.025) Urine Protein Negative (Neg-Trace) mg/dL Urine Glucose (UA) Negative (Negative) mg/dL Urine Ketones Negative (Negative) mg/dL Urine Blood Negative (Negative) Urine Nitrite Negative (Negative) Ur Leukocyte Esterase Negative (Negative) Urine Opiates Screen POSITIVE H (Not Detect) Urine Fentanyl Screen POSITIVE H (Not Detect) Ur Barbiturates Screen Not Detected (Not Detect) Ur Phencyclidine Scrn Not Detected (Not Detect) Ur Amphetamines Screen Not Detected (Not Detect) U Benzodiazepines Scrn POSITIVE H (Not Detect) Urine Cocaine Screen POSITIVE H (Not Detect) U Marijuana (THC) Screen POSITIVE H (Not Detect) Ethyl Alcohol mg/dL COVID-19 (DAVID) (Negative) COVID-19 Clin Com Influenza Type A (TYSON) (Negative) Influenza Type B (TYSON) (Negative) Influenza A & B Note Independent Interpretation I performed an independent interpretation of an: Plain X-Ray Radiology Impression Discussion of test interpretation with radiology: I have reviewed the radiologist's reading. Radiologist Impression: INDINGS: The lungs are well-expanded and clear of acute process. The cardiomediastinal silhouette is within normal limits. There is mild axial scoliosis of thoracolumbar spine. XR/XR chest 1V IMPRESSION: No acute cardiopulmonary process seen. No change from 06/12/2023. Independent Historian Clinical information obtained from an independent historian. History obtained from or confirmed by: EMS Critical Care Time Critical Care Time Critical Care Time: Yes Total Critical Care Time: 120 Attestation: I have personally provided critical care time. Time includes review of lab data, radiology results, discussion with consultants, and monitoring for potential decompensation. Intervention performed as documented. Discharge Plan Discharge Clinical Impression: Asthma exacerbation, Polysubstance abuse Patient Disposition: Admitted As Inpatient Prescriptions: No Action clonidine HCl 0.1 mg tablet 0.1 mg PO TID PRN (Reason: ANXIETY ) methocarbamol 750 mg tablet 750 mg PO BID ipratropium-albuterol 0.5 mg-3 mg(2.5 mg base)/3 mL solution for nebulization 3 ml inhalation TID fluticasone propion-salmeterol [Advair Diskus] 500-50 mcg/dose blister with device 1 ea INHALATION BID albuterol sulfate [Ventolin HFA] 90 mcg/actuation HFA aerosol inhaler 2 puff inhalation Q6H PRN (Reason: wheezing) promethazine [Phenergan] 12.5 mg Tablet 12.5 mg PO DAILY clonazepam 2 mg Tablet 2 mg PO DAILY PRN (Reason: Anxiety) clonazepam 2 mg Tablet 2 mg PO TID ipratropium-albuterol 0.5 mg-3 mg(2.5 mg base)/3 mL solution for nebulization 3 ml inhalation Q4-6H PRN (Reason: WHEEZING ) prednisone 1 mg Tablet 1 mg PO DAILY azithromycin [Zithromax Z-Charles] 250 mg tablet See Rx Instructions .ROUTE .COMPLEX Qty: 6 0RF Rx Instructions: take 500 mg today (day 1), then 250 mg for 4 days (days 2-5) prednisone 10 mg tablets,dose pack See Taper PO DAILY Qty: 48 0RF Taper: Prednisone 40 mg daily for 3 Days and 0 Hour 30 mg daily for 3 Days and 0 Hour 20 mg daily for 3 Days and 0 Hour 10 mg daily for 3 Days and 0 Hour albuterol sulfate 90 mcg/actuation HFA aerosol inhaler 1 inh inhalation QID PRN (Reason: shortness of breath or wheezing) Qty: 6.7 0RF albuterol sulfate 2.5 mg/0.5 mL solution for nebulization 5 mg inhalation Q4H PRN (Reason: shortness of breath or wheezing) Qty: 30 0RF fluticasone propionate 50 mcg/actuation spray,suspension 1 spray intranasal Q12H Qty: 16 0RF Rx Instructions: administer into each nostril
[2023-06-20 21:45] VITALS: PULSE 120; RESP 21; O2SAT 100
[2023-06-20] MEDS: Albuterol Sulfate (0.083%) 2.5 MG/3 ML VIAL.NEB 10 MG INHALE (21:47)
[2023-06-20 21:48] VITALS: PULSE 122; RESP 27; O2SAT 95
[2023-06-20] MEDS: 0.9 % Sodium Chloride 1,000 ML 999 ML IVCONT (21:55)
[2023-06-20 21:59] LABS: MANUAL DIFF FLAG NO
[2023-06-20 22:01] LABS: Venous Blood Gas Refer to POC result
[2023-06-20 22:01] LABS: Basophils Percent Auto 0.1 % (0-2); Eosinophils Absolute Auto 0.4 X10*3/uL (0.0-0.4); Eosinophils Percent Auto 4.4 % (0-4); Hematocrit 34.2 % (37.0-47.0); Imm Gran Abs Auto 0.02 X10*3/uL (0.00-0.03); Imm Gran Pct Auto 0.2 % (0.0-0.4); Lymphocytes Percent Auto 11.9 % (20-40); Mean Corpuscular HGB Conc 32.2 g/dl (31.0-35.0); Mean Corpuscular Hemoglobin 28.6 pg (27.0-33.0); Mean Corpuscular Volume 89.1 fL (80.0-98.0); Mean Platelet Volume 9.9 fL (9.4-12.3); Monocytes Absolute Auto 0.8 X10*3/uL (0.1-1.2); Monocytes Percent Auto 8.7 % (2-11); Neutrophils Absolute Auto 6.5 x10*3/uL (2.0-8.3); Neutrophils Percent Auto 74.7 % (45-73); Platelet Count 162 X10*3/uL (160-400); Red Blood Count 3.84 X10*6/uL (4.20-5.50); Red Cell Distribution Width 14.3 % (11.0-16.0); White Blood Count 8.7 X10*3/uL (4.8-10.8)
[2023-06-20 22:03] LABS: VBG Base Excess 5.2 mmol/L; VBG HCO3 33 mmol/L (22-26); VBG pCO2 67 mmHg; VBG pO2 55 mmHg
[2023-06-20 22:11] LABS: Lactic Acid 1.3 mmol/L (0.5-2.0)
[2023-06-20 22:21] LABS: B Type Natriuretic Peptide 38 pg/mL (<100)
[2023-06-20] MEDS: Prochlorperazine Edisylate 10 MG/2 ML VIAL IVPUSH (22:23)
[2023-06-20 22:24] LABS: Alanine Aminotransferase 419 U/L (0-31); Albumin Level 4.1 g/dL (3.5-5.0); Alkaline Phosphatase 73 U/L (39-117); Anion Gap 14 (12-20); Aspartate Amino Transferase 266 U/L (5-31); Bilirubin Direct < 0.2 mg/dL (0.0-0.5); Bilirubin Total 0.2 mg/dL (0.0-1.0); Blood Urea Nitrogen 11 mg/dL (9-16); Calcium 8.5 mg/dL (8.4-10.2); Carbon Dioxide 26 mmol/L (22-29); Chloride 103 mmol/L (96-108); Estimated Glomerular Filt Rate > 60; Ethanol < 10 mg/dL; Glucose Random 114 mg/dL (60-115); HCG Quantitative < 2 mIU/mL; Magnesium 3.2 mg/dL (1.6-2.6); Potassium 4.2 mmol/L (3.3-5.1); Sodium 139 mmol/L (135-145); Total Protein 6.8 g/dL (6.5-8.0)
[2023-06-20 22:26] LABS: Troponin-I High Sensitivity < 2.7 ng/L (<3.5-17.0)
[2023-06-20 22:27] LABS: IDNOW Serial# 16C4AD1C
[2023-06-20 22:28] VITALS: BP 121/70; PULSE 121; RESP 24; O2SAT 100
[2023-06-20 22:28] LABS: Influenza A Negative (Negative); Influenza B2 Negative (Negative)
--- NOTE | 2023-06-20 22:29 | PC.NURSE ---
Addendum entered by Mukund Simmons 06/20/23 22:32: LATE ENTRY* Original Note: pt biba reporting sob/dyspnea ongoing approx 3 days worse today; sats 90% upon ems arrival at home. respiratory came to bedside for cpap machine sats 100%. wheezing noted bilat throughout lungs. iv established via ems; labs drawn; ekg obtained. tachypneic/sinus tachy on monitor. Dr. Singh to bedside for primary eval.
--- NOTE | 2023-06-20 22:31 | PC.NURSE ---
pt continues to belly breathe 0 respiratory at bedside for breathing tx. pt requests bed adrian. pt medicated per mar. ivf infusing.
[2023-06-20 22:34] LABS: COVID-19 Test Negative (Negative); IDNOW Serial# 58CA691E
[2023-06-20 23:02] VITALS: RESP 18; O2SAT 95
[2023-06-20 23:58] LABS: Appearance Urine Clear; Color Urine Yellow; Glucose Urine UA Negative (Negative); Leukocyte Esterase Urine Negative (Negative); Nitrite Urine Negative (Negative); PH 5.5 (5.0-9.0); Specific Gravity - Urine 1.025 (1.005-1.025); Urine Blood Negative (Negative); Urine Ketones Negative (Negative); Urine Protein Negative (Neg-Trace)
--- NOTE | 2023-06-20 23:58 | PC.NURSE ---
pt straight cathed per Dr. Singh order; 650 mL output; UA/Utox sent to lab. afebrile via rectal temp 99F. scant amount of pink-tinged blood noted around rectum; Dr. Singh aware.
[2023-06-20 23:59] VITALS: TEMP 37.2
[2023-06-21 00:09] LABS: Amphetamine Screen Urine Not Detected (Not Detect); Barbiturates, Urine Not Detected (Not Detect); Benzodiazepines Screen Urine POSITIVE (Not Detect); Cannabinoid Screen Urine POSITIVE (Not Detect); Cocaine Screen Urine POSITIVE (Not Detect); Fentanyl, urine POSITIVE (Not Detect); Opiate Screen Urine POSITIVE (Not Detect); Phencyclidine Screen Urine Not Detected (Not Detect)
[2023-06-21 00:54] VITALS: BP 113/65; PULSE 104; RESP 16; O2SAT 100
[2023-06-21 01:01] LABS: Venous Blood Gas Refer to POC result
[2023-06-21 01:02] LABS: VBG Base Excess 0.3 mmol/L; VBG HCO3 24 mmol/L (22-26); VBG pCO2 39 mmHg; VBG pO2 147 mmHg
--- NOTE | 2023-06-21 02:19 | PM.IMHP ---
History of Present Illness Date of Service: 06/21/23 Chief Complaint: Dyspnea This is 27-year-old female with pertinent history of asthma not on home oxygen, mood disorder presents to the emergency department for evaluation of dyspnea. Patient is drowsy and lethargic at the time of my evaluation. Unable to provide history. History obtained from ER provider and chart review. Patient told EMS that she has been having significant dyspnea and asthma exacerbation over the last couple of days. She denied using drugs to EMS. Patient was wheezing and brought to the emergency department by EMS and was given IV Solu-Medrol, magnesium sulfate and albuterol. Unable to obtain review of systems. Review of Systems Review of Systems: Yes Unobtainable due to mental status PMFSH Medical History Pneumonitis Asthma Asthma Pneumonia due to COVID-19 virus COVID-19 Bipolar disorder PTSD (post-traumatic stress disorder) Depression Anxiety Asthma GERD (gastroesophageal reflux disease) Crohn's disease Opioid use disorder Family History Father Colon cancer Mother No problems noted. Brother Autism Sister Bipolar disorder Maternal Aunt Breast cancer Social History Household Members: None Housing: Apartment Housing Other:: motel Do you presently have visiting nurse or other home services: No Alcohol intake: never Patient Tobacco Use Status: Former Tobacco user Cigarette Packs Per Day: 0.33 Cigarettes Per Day: 6.6 Years Smoked: 9 e-Cigarette/Vaping Use: Former Use Second Hand Smoke Exposure: Yes Substance Use Type: Heroin Advance Directives: Yes Advance Directives on File: Yes Advance Directives Date on File: 05/07/21 service: No Current occupational status: unemployed Cognitive needs: No Hearing needs: No Vision needs: No Meds Allergies Allergy/AdvReac Type Severity Reaction Status Date / Time latex [LATEX] Allergy Intermediate RASH Verified 02/18/23 17:39 ondansetron [From Zofran] Allergy Intermediate Shortness Verified 02/18/23 17:39 of Breath propranolol Allergy Intermediate Shortness Verified 02/18/23 17:39 of Breath adhesive tape [ADHESIVE TAPE] AdvReac Intermediate RASH Verified 02/18/23 17:39 Home Medications Medication Instructions Recorded Confirmed Last Taken Type clonidine HCl 0.1 mg tablet 0.1 mg PO TID PRN ANXIETY 02/18/23 06/12/23 Unknown History methocarbamol 750 mg tablet 750 mg PO BID 02/18/23 06/12/23 Unknown History albuterol sulfate 90 mcg/actuation 2 puff inhalation Q6H PRN wheezing 06/12/23 06/12/23 Unknown History aerosol inhaler (Ventolin HFA) clonazepam 2 mg tablet 2 mg PO DAILY PRN Anxiety 06/12/23 06/12/23 Unknown History clonazepam 2 mg tablet 2 mg PO TID 06/12/23 06/12/23 Unknown History fluticasone 500 mcg-salmeterol 50 1 ea inhalation BID 06/12/23 06/12/23 Unknown History mcg/dose blistr powdr for inhalation (Advair Diskus) ipratropium 0.5 mg-albuterol 3 mg 3 ml inhalation Q4-6H PRN WHEEZING 06/12/23 06/12/23 Unknown History (2.5 mg base)/3 mL nebulization soln ipratropium 0.5 mg-albuterol 3 mg 3 ml inhalation TID 06/12/23 06/12/23 Unknown History (2.5 mg base)/3 mL nebulization soln prednisone 1 mg tablet 1 mg PO DAILY 06/12/23 06/12/23 Unknown History promethazine 12.5 mg tablet 12.5 mg PO DAILY 06/12/23 06/12/23 Unknown History Physical Exam Vital Signs and Narrative: Vital Signs: Last Vital Signs Temp 99 F 06/20/23 23:59 Pulse 104 H 06/21/23 00:54 Resp 16 06/21/23 00:54 BP 113/65 06/21/23 00:54 Pulse Ox 100 06/21/23 00:54 O2 Del Method CPAP 06/21/23 00:54 BMI result Body Mass Index 23.2 Young female lying in bed in mild distress Neck supple, no JVD Regular rate and rhythm, S1-S2 heard Bilateral expiratory wheezing without crackles Abdomen soft nontender, no guarding, no rigidity Patient is drowsy and only eye opening to painful stimulus Psych: Drowsy No pedal edema Results Labs 06/20/23 21:51 06/20/23 21:51 Labs: Laboratory Results - last 24 hr 10/27/23 10/27/23 10/27/23 21:51 21:51 21:51 MCV 89.1 MCH 28.6 MCHC 32.2 RDW 14.3 Plt Count 162 D MPV 9.9 Immature Gran % (Auto) 0.2 Neut % (Auto) 74.7 H Lymph % (Auto) 11.9 L [place] % (Auto) 8.7 Eos % (Auto) 4.4 H Baso % (Auto) 0.1 Lymph # (Auto) 1.0 L [place] # (Auto) 0.8 Eos # (Auto) 0.4 Baso # (Auto) 0.0 Abs Immat Gran (auto) 0.02 Absolute Neuts (auto) 6.5 Absolute Nucleated RBC 0.000 Nucleated RBC % (auto) 0.0 PT 12.0 INR 1.0 VBG pH VBG pCO2 VBG pO2 VBG HCO3 VBG O2 Saturation VBG Base Excess Anion Gap 14 Estim Creat Clear Calc 128.0 Estimated GFR > 60 Random Glucose 114 Lactic Acid Calcium 8.5 D Magnesium 3.2 H Cancelled Total Bilirubin 0.2 Direct Bilirubin < 0.2 AST 266 H ALT 419 H Alkaline Phosphatase 73 B-Natriuretic Peptide 38 Total Protein 6.8 Albumin 4.1 Beta HCG, Quant < 2 Urine Color Urine Appearance Urine pH Ur Specific [place] Urine Protein Urine Glucose (UA) Urine Ketones Urine Blood Urine Nitrite Ur Leukocyte Esterase Urine Opiates Screen Urine Fentanyl Screen Ur Barbiturates Screen Ur Phencyclidine Scrn Ur Amphetamines Screen U Benzodiazepines Scrn Urine Cocaine Screen U Marijuana (THC) Screen Ethyl Alcohol < 10 Cancelled COVID-19 (DAVID) COVID-19 Clin Com Influenza Type A (TYSON) Influenza Type B (TYSON) Influenza A & B Note 06/20/23 06/20/23 06/20/23 21:52 21:57 21:59 MCV MCH MCHC RDW Plt Count MPV Immature Gran % (Auto) Neut % (Auto) Lymph % (Auto) [place] % (Auto) Eos % (Auto) Baso % (Auto) Lymph # (Auto) [place] # (Auto) Eos # (Auto) Baso # (Auto) Abs Immat Gran (auto) Absolute Neuts (auto) Absolute Nucleated RBC Nucleated RBC % (auto) PT INR VBG pH 7.30 L VBG pCO2 67 VBG pO2 55 VBG HCO3 33 H VBG O2 Saturation 82.0 VBG Base Excess 5.2 Anion Gap Estim Creat Clear Calc Estimated GFR Random Glucose Lactic Acid 1.3 Calcium Magnesium Total Bilirubin Direct Bilirubin AST ALT Alkaline Phosphatase B-Natriuretic Peptide Total Protein Albumin Beta HCG, Quant Urine Color Urine Appearance Urine pH Ur Specific [place] Urine Protein Urine Glucose (UA) Urine Ketones Urine Blood Urine Nitrite Ur Leukocyte Esterase Urine Opiates Screen Urine Fentanyl Screen Ur Barbiturates Screen Ur Phencyclidine Scrn Ur Amphetamines Screen U Benzodiazepines Scrn Urine Cocaine Screen U Marijuana (THC) Screen Ethyl Alcohol COVID-19 (DAVID) Negative COVID-19 Clin Com See Note Influenza Type A (TYSON) Negative Influenza Type B (TYSON) Negative Influenza A & B Note See Note 06/20/23 06/21/23 23:52 00:56 MCV MCH MCHC RDW Plt Count MPV Immature Gran % (Auto) Neut % (Auto) Lymph % (Auto) [place] % (Auto) Eos % (Auto) Baso % (Auto) Lymph # (Auto) [place] # (Auto) Eos # (Auto) Baso # (Auto) Abs Immat Gran (auto) Absolute Neuts (auto) Absolute Nucleated RBC Nucleated RBC % (auto) PT INR VBG pH 7.40 VBG pCO2 39 VBG pO2 147 VBG HCO3 24 VBG O2 Saturation 100.0 VBG Base Excess 0.3 Anion Gap Estim Creat Clear Calc Estimated GFR Random Glucose Lactic Acid Calcium Magnesium Total Bilirubin Direct Bilirubin AST ALT Alkaline Phosphatase B-Natriuretic Peptide Total Protein Albumin Beta HCG, Quant Urine Color Yellow Urine Appearance Clear Urine pH 5.5 Ur Specific [place] 1.025 Urine Protein Negative Urine Glucose (UA) Negative Urine Ketones Negative Urine Blood Negative Urine Nitrite Negative Ur Leukocyte Esterase Negative Urine Opiates Screen POSITIVE H Urine Fentanyl Screen POSITIVE H Ur Barbiturates Screen Not Detected Ur Phencyclidine Scrn Not Detected Ur Amphetamines Screen Not Detected U Benzodiazepines Scrn POSITIVE H Urine Cocaine Screen POSITIVE H U Marijuana (THC) Screen POSITIVE H Ethyl Alcohol COVID-19 (DAVID) COVID-19 Clin Com Influenza Type A (TYSON) Influenza Type B (TYSON) Influenza A & B Note Imaging Radiologist's Impressions: Impressions Chest X-Ray 06/20/23 22:05 IMPRESSION: No acute cardiopulmonary process seen. No change from 06/12/2023. Assessment and Plan (1) Asthma exacerbation: Status: Acute (2) Polysubstance abuse: Status: Acute Plan This is a 27-year-old female with pertinent history of asthma not on home oxygen, mood disorder who presents to the emergency department for evaluation of dyspnea. #. Acute respiratory distress due to acute exacerbation of asthma: Will admit patient and initiate scheduled and p.r.n. DuoNebs. Also initiating systemic steroids. Continue home inhaler #. Acute toxic encephalopathy due to poly substance use disorder. #. Mood disorder: Continue home mood stabilizers #. Polysubstance use disorder: UDS positive for opiates, fentanyl, benzodiazepines, marijuana and cocaine. Consulted Addiction team. Monitor for withdrawals Med rec pending DVT prophylaxis: None. Patient is ambulatory Time Spent With Patient Time: Total time managing care of this patient today ____ minutes. Quality Stroke Does the patient have a stroke diagnosis?: No VTE Prior VTE?: No VTE Risk Level:: Medical - low VTE Device Contraindication: Treatment Not Indicated VTE Drug Contraindication: Treatment Not Indicated
[2023-06-21 02:21] VITALS: O2SAT 95
--- NOTE | 2023-06-21 02:24 | PC.NURSE ---
respiratory to bedside; cpap removed per dr. sarkar request. sats remain 95-98% on RA.
--- NOTE | 2023-06-21 02:48 | PC.NURSE ---
pt sats 91% on RA; Dr. Leos aware; states no o2 supplementation needed o2> 90% RA. pt received solumedrol via ems approx 2100; will call pharmacy to reschedule per Dr. leos. 2x attempt to reach pharmacy.
[2023-06-21 05:24] LABS: Basophils Percent Auto 0.2 % (0-2); Eosinophils Percent Auto 0.9 % (0-4); Hematocrit 33.7 % (37.0-47.0); Hemoglobin 10.8 g/dl (12.0-16.0); Imm Gran Abs Auto 0.02 X10*3/uL (0.00-0.03); Imm Gran Pct Auto 0.4 % (0.0-0.4); Lymphocytes Absolute Auto 0.4 X10*3/uL (1.2-4.9); Lymphocytes Percent Auto 8.5 % (20-40); MANUAL DIFF FLAG SCAN; Mean Corpuscular Volume 90.3 fL (80.0-98.0); Monocytes Absolute Auto 0.1 X10*3/uL (0.1-1.2); Monocytes Percent Auto 1.7 % (2-11); NRBC Pct Auto 0.4 /100WBC (0.0-0.2); Neutrophils Percent Auto 88.3 % (45-73); PLT CLUMP 1; Red Blood Count 3.73 X10*6/uL (4.20-5.50); Red Cell Distribution Width 14.2 % (11.0-16.0); SCAN SMEAR FLAG 1; White Blood Count 4.6 X10*3/uL (4.8-10.8)
[2023-06-21 05:33] VITALS: PULSE 77
[2023-06-21 05:37] LABS: Mean Platelet Volume 10.1 fL (9.4-12.3); Platelet Count 149 X10*3/uL (160-400)
[2023-06-21 05:38] LABS: SLIDE REVIEW VERIFIED
--- NOTE | 2023-06-21 05:40 | PC.NURSE ---
respirations even and unlabored pt arousable to name sats 95% on ra nsr on monitor 76 bpm. report given to s3 RN Benjamin. awaiting transport by religious educator.
[2023-06-21 05:51] LABS: Anion Gap 14 (12-20); Blood Urea Nitrogen 8 mg/dL (9-16); Calcium 8.6 mg/dL (8.4-10.2); Carbon Dioxide 20 mmol/L (22-29); Chloride 106 mmol/L (96-108); Estimated Glomerular Filt Rate > 60; Glucose Random 147 mg/dL (60-115); Potassium 4.7 mmol/L (3.3-5.1); Sodium 135 mmol/L (135-145)
[2023-06-21 06:16] VITALS: BMI 21.5
[2023-06-21 07:10] VITALS: BP 116/70; PULSE 70; RESP 16; TEMP 36.6; O2SAT 97
[2023-06-21] MEDS: Albuterol/Iprat 2.5/0.5MG 3 ML AMPUL.NEB INHALE (08:01)
[2023-06-21 08:02] VITALS: PULSE 70; RESP 14; O2SAT 91
--- NOTE | 2023-06-21 08:46 | P.DS_ITS ---
DS: Providers Provider Date of Service: 06/21/23 Date of admission: 06/21/23 02:17 Primary care physician: None Physician Consults: 06/21/23 02:17 Addiction Medicine Routine Consulting Provider: Addiction Covering Reason for consultation: polysubstance use disorder DS: Diagnosis Discharge Diagnosis (1) Asthma exacerbation: Status: Acute (2) Polysubstance abuse: Status: Acute DS: Summary Hospital Course Hospital Course: The patient was admitted a few hours ago for an asthma exacerbation but has chosen to leave against medical advice. At the time of this decision, the patient was alert and oriented to self, place, and time, and her vital signs were stable, including an oxygen saturation of 97% on room air. The patient fully comprehends the risks associated with leaving against medical advice, understanding that her condition may worsen and potentially result in life- threatening consequences, and she has willingly accepted these risks. I recommend that she continues use of her inhalers and steroids, schedules a follow-up appointment with her primary care physician in a week, and instruct her to contact the physician as planned. Furthermore, emphasize that she should not hesitate to seek immediate medical attention through the Emergency Department or by calling 911 if her condition deteriorates at any point. Final diagnosis: Ashtma exaerbation Time Spent with Patient Time attestation: Total time managing care of this patient today ____ minutes. Discharge coordination time: Less than 30 minutes Quality: Safe Use of Opioids Does Pt have an Active Cancer Diagnosis on the Problem List?: No Quality: Stroke Does the patient have a stroke diagnosis?: No Physical Exam Vital Signs: Vital Signs: Last Vital Signs Temp 97.8 F 06/21/23 07:10 Pulse 70 06/21/23 08:02 Resp 14 06/21/23 08:02 BP 116/70 06/21/23 07:10 Pulse Ox 97 06/21/23 07:10 O2 Del Method Room Air 06/21/23 07:10 BMI result Body Mass Index 21.5 DS: Data Data Completed and Pending Completed studies during hospitalization [Text1]: Procedures Assistance with Respiratory Ventilation, Less than 24 Consecutive Hours, Continuous Positive Airway Pressure (05/31/21) Detoxification Services for Substance Abuse Treatment (11/04/21) Labs on day of discharge: Laboratory Results - last 24 hr 06/20/23 06/20/23 06/20/23 21:51 21:51 21:51 WBC 8.7 RBC 3.84 L Hgb 11.0 L Hct 34.2 L MCV 89.1 MCH 28.6 MCHC 32.2 RDW 14.3 Plt Count 162 D MPV 9.9 Immature Gran % (Auto) 0.2 Neut % (Auto) 74.7 H Lymph % (Auto) 11.9 L [place] % (Auto) 8.7 Eos % (Auto) 4.4 H Baso % (Auto) 0.1 Lymph # (Auto) 1.0 L [place] # (Auto) 0.8 Eos # (Auto) 0.4 Baso # (Auto) 0.0 Abs Immat Gran (auto) 0.02 Absolute Neuts (auto) 6.5 Absolute Nucleated RBC 0.000 Nucleated RBC % (auto) 0.0 Smear Tech's Comments PT 12.0 INR 1.0 VBG pH VBG pCO2 VBG pO2 VBG HCO3 VBG O2 Saturation VBG Base Excess Sodium 139 Potassium 4.2 Chloride 103 Carbon Dioxide 26 Anion Gap 14 BUN 11 Creatinine 0.58 Estim Creat Clear Calc 128.0 Estimated GFR > 60 Random Glucose 114 Lactic Acid Calcium 8.5 D Magnesium 3.2 H Cancelled Total Bilirubin 0.2 Direct Bilirubin < 0.2 AST 266 H ALT 419 H Alkaline Phosphatase 73 Troponin I High Sens < 2.7 B-Natriuretic Peptide 38 Total Protein 6.8 Albumin 4.1 Beta HCG, Quant < 2 Urine Color Urine Appearance Urine pH Ur Specific [place] Urine Protein Urine Glucose (UA) Urine Ketones Urine Blood Urine Nitrite Ur Leukocyte Esterase Urine Opiates Screen Urine Fentanyl Screen Ur Barbiturates Screen Ur Phencyclidine Scrn Ur Amphetamines Screen U Benzodiazepines Scrn Urine Cocaine Screen U Marijuana (THC) Screen Ethyl Alcohol < 10 Cancelled COVID-19 (DAVID) COVID-19 Clin Com Influenza Type A (TYSON) Influenza Type B (TYSON) Influenza A & B Note 06/20/23 06/20/23 06/20/23 21:52 21:57 21:59 WBC RBC Hgb Hct MCV MCH MCHC RDW Plt Count MPV Immature Gran % (Auto) Neut % (Auto) Lymph % (Auto) [place] % (Auto) Eos % (Auto) Baso % (Auto) Lymph # (Auto) [place] # (Auto) Eos # (Auto) Baso # (Auto) Abs Immat Gran (auto) Absolute Neuts (auto) Absolute Nucleated RBC Nucleated RBC % (auto) Smear Tech's Comments PT INR VBG pH 7.30 L VBG pCO2 67 VBG pO2 55 VBG HCO3 33 H VBG O2 Saturation 82.0 VBG Base Excess 5.2 Sodium Potassium Chloride Carbon Dioxide Anion Gap BUN Creatinine Estim Creat Clear Calc Estimated GFR Random Glucose Lactic Acid 1.3 Calcium Magnesium Total Bilirubin Direct Bilirubin AST ALT Alkaline Phosphatase Troponin I High Sens B-Natriuretic Peptide Total Protein Albumin Beta HCG, Quant Urine Color Urine Appearance Urine pH Ur Specific [place] Urine Protein Urine Glucose (UA) Urine Ketones Urine Blood Urine Nitrite Ur Leukocyte Esterase Urine Opiates Screen Urine Fentanyl Screen Ur Barbiturates Screen Ur Phencyclidine Scrn Ur Amphetamines Screen U Benzodiazepines Scrn Urine Cocaine Screen U Marijuana (THC) Screen Ethyl Alcohol COVID-19 (DAVID) Negative COVID-19 Clin Com See Note Influenza Type A (TYSON) Negative Influenza Type B (TYSON) Negative Influenza A & B Note See Note 06/20/23 06/21/23 06/21/23 23:52 00:56 05:07 WBC 4.6 L RBC 3.73 L Hgb 10.8 L Hct 33.7 L MCV 90.3 MCH 29.0 MCHC 32.0 RDW 14.2 Plt Count 149 L MPV 10.1 Immature Gran % (Auto) 0.4 Neut % (Auto) 88.3 H Lymph % (Auto) 8.5 L [place] % (Auto) 1.7 L Eos % (Auto) 0.9 Baso % (Auto) 0.2 Lymph # (Auto) 0.4 L [place] # (Auto) 0.1 Eos # (Auto) 0.0 Baso # (Auto) 0.0 Abs Immat Gran (auto) 0.02 Absolute Neuts (auto) 4.0 Absolute Nucleated RBC 0.020 H Nucleated RBC % (auto) 0.4 H Smear Tech's Comments VERIFIED PT INR VBG pH 7.40 VBG pCO2 39 VBG pO2 147 VBG HCO3 24 VBG O2 Saturation 100.0 VBG Base Excess 0.3 Sodium 135 Potassium 4.7 Chloride 106 Carbon Dioxide 20 L Anion Gap 14 BUN 8 L Creatinine 0.55 Estim Creat Clear Calc 135.0 Estimated GFR > 60 Random Glucose 147 H Lactic Acid Calcium 8.6 Magnesium Total Bilirubin Direct Bilirubin AST ALT Alkaline Phosphatase Troponin I High Sens B-Natriuretic Peptide Total Protein Albumin Beta HCG, Quant Urine Color Yellow Urine Appearance Clear Urine pH 5.5 Ur Specific [place] 1.025 Urine Protein Negative Urine Glucose (UA) Negative Urine Ketones Negative Urine Blood Negative Urine Nitrite Negative Ur Leukocyte Esterase Negative Urine Opiates Screen POSITIVE H Urine Fentanyl Screen POSITIVE H Ur Barbiturates Screen Not Detected Ur Phencyclidine Scrn Not Detected Ur Amphetamines Screen Not Detected U Benzodiazepines Scrn POSITIVE H Urine Cocaine Screen POSITIVE H U Marijuana (THC) Screen POSITIVE H Ethyl Alcohol COVID-19 (DAVID) COVID-19 Clin Com Influenza Type A (TYSON) Influenza Type B (TYSON) Influenza A & B Note Discharge Plan Discharge Anticipated Discharge Date/Time: 06/21/23 08:41 Patient Disposition: Left Against Medical Advice Discharge Diagnosis: Ashtma exacerbation Referrals: Physician,None [Primary Care Provider] - 1 Week Discharge Medications: No Action clonidine HCl 0.1 mg tablet 0.1 mg PO TID PRN (Reason: ANXIETY ) methocarbamol 750 mg tablet 750 mg PO BID fluticasone propion-salmeterol [Advair Diskus] 500-50 mcg/dose blister with device 1 ea INHALATION BID albuterol sulfate [Ventolin HFA] 90 mcg/actuation HFA aerosol inhaler 2 puff inhalation Q6H PRN (Reason: wheezing) promethazine [Phenergan] 12.5 mg Tablet 12.5 mg PO DAILY clonazepam 2 mg Tablet 2 mg PO BID PRN (Reason: Anxiety) ipratropium-albuterol 0.5 mg-3 mg(2.5 mg base)/3 mL solution for nebulization 3 ml inhalation QID PRN (Reason: WHEEZING ) prednisone 1 mg Tablet 1 mg PO DAILY gabapentin 600 mg tablet 600 mg PO TID doxycycline hyclate 100 mg tablet 100 mg PO BID azithromycin [Zithromax Z-Charles] 250 mg tablet See Rx Instructions .ROUTE .COMPLEX Qty: 6 0RF Rx Instructions: take 500 mg today (day 1), then 250 mg for 4 days (days 2-5) prednisone 10 mg tablets,dose pack See Taper PO DAILY Qty: 48 0RF Taper: Prednisone 40 mg daily for 3 Days and 0 Hour 30 mg daily for 3 Days and 0 Hour 20 mg daily for 3 Days and 0 Hour 10 mg daily for 3 Days and 0 Hour albuterol sulfate 2.5 mg/0.5 mL solution for nebulization 5 mg inhalation Q4H PRN (Reason: shortness of breath or wheezing) Qty: 30 0RF fluticasone propionate 50 mcg/actuation spray,suspension 1 spray intranasal Q12H Qty: 16 0RF Rx Instructions: administer into each nostril Discharge Orders: Discharge Order (Routine); Ordered 06/21/23 Ordered By: Bayron [facility] Care Plan Goals: left against medical advise Health Concerns: left against medical advise Plan of Treatment: left against medical advise, I recommend that she continues use of her inhalers and steroids, schedules a follow-up appointment with her primary care physician in a week, and instruct he r to contact the physician as planned. Furthermore, emphasize that she should not hesitate to seek immediate medical attention through the Emergency Department or by calling 911 if her condition deteriorates at any point. Assessment: left against medical advise
--- NOTE | 2023-06-21 09:13 | MHC.CM.PN ---
pt left ama
--- NOTE | 2023-06-21 09:15 | MHC.CM.PN ---
pt left ama
--- NOTE | 2023-06-21 09:48 | PHA.MEDREC ---
Pharmacy Consult ? Medication Reconciliation Pharmacy has completed the medication reconciliation. PT EXCESSIVELY DROWSY AND AFTER NUMEROUS ATTEMPTS TO SPEAK TO HER SHE ONLY WAS ABLE TO TELL ME THAT SHE TAKES MEDICATIONS SHE GETS FROM HER PHARMACY AND NOBODY WOULD BE ABLE TO GIVE ME FURTHER INFORMATION. MED REC COMPLETE FROM CLAIMS HISTORY.
--- NOTE | 2023-06-21 12:33 | MHC.RECOVRN ---
pumping station engineer attempted to meet with patient in room 376-1. Patient signed out AMA and left the unit early AM, just prior to my arrival. Unable to complete consult. Discussed w/Stephanie Murrieta APRN.
== END 2023-06-21 10:15 | disposition left against medical advice (07) | DRG 141 ==
LOC: HO.ED 06-21 02:18 → HO.EDOVER 06-21 02:22 → HO.S3 06-21 04:07
PROVIDERS: Admitting Provider Student in an Organized Health Care Education/Training Program; Emergency Provider Emergency Medicine; Visit Provider Internal Medicine
DX: J45.901 Unspecified asthma with (acute) exacerbation (principal); F19.10 Other psychoactive substance abuse, uncomplicated; F43.10 Post-traumatic stress disorder, unspecified; Z20.822 Contact with and (suspected) exposure to COVID-19; Z87.891 Personal history of nicotine dependence; Z79.51 Long term (current) use of inhaled steroids; Z79.899 Other long term (current) drug therapy
CPT/HCPCS: 36415; 71045; 80048; 80076; 80307; 81003; 82803; 83605; 83735; 83880; 84484; 84702; 85025; 85610; 87040; 87502; 87635; 93005; 94640; 99221; 99285

== ENCOUNTER → 2023-06-21 02:17 | Outpatient (BNV) | payer OTHER, SELFPAY | PROVIDERS: Admitting Provider Student in an Organized Health Care Education/Training Program; Emergency Provider Emergency Medicine; Visit Provider Student in an Organized Health Care Education/Training Program | DX: J45.901 Unspecified asthma with (acute) exacerbation (principal); F19.10 Other psychoactive substance abuse, uncomplicated; Z53.29 Procedure and treatment not carried out because of patient's decision for other reasons | CPT/HCPCS: 99234; 99499 ==

== ENCOUNTER 2023-10-26 13:35 | Observation (INO) | payer OTHER, SELFPAY ==
[2023-10-26] VITALS (9 sets, daily range): BP systolic 121–149; BP diastolic 69–97; PULSE 93–124; RESP 14–26; TEMP 36.4–36.8; O2SAT 94–98; BMI 20.6
--- NOTE | ~2023-10-26 | XR_ITS ---
EXAMINATION: XR CHEST 2 VIEW CLINICAL INFORMATION: Difficulty breathing COMPARISON: 06/20/2023 TECHNIQUE: PA and lateral views of the chest obtained. FINDINGS: The lungs are clear. There are no pleural effusions. The cardiomediastinal silhouette is normal. XR/XR chest 2V IMPRESSION: No acute cardiopulmonary disease.
--- NOTE | 2023-10-26 13:43 | ED_ITS ---
HPI - General Adult General Chief complaint: Dyspnea Stated complaint: SOB Time Seen by Provider: 10/26/23 14:13 Source: patient Mode of arrival: ambulatory Limitations: no limitations History of Present Illness HPI narrative: 28-year-old female history of opiate use disorder on methadone, PTSD, bipolar, Crohn's disease, depression, anxiety, asthma presenting w/ sob, wheezing, fatigue, productive cough and malaise X 1 week worsening over the past few days. Denies recent sick contacts. Reports she tried multiple breathing treatments at home w/ little to no relief. This feels like her typical asthma exacerbation. Related Data Home Medications Medication Instructions Recorded Confirmed clonidine HCl 0.1 mg tablet 0.1 mg PO TID PRN ANXIETY 02/18/23 06/21/23 albuterol sulfate 90 mcg/actuation 2 puff inhalation Q6H PRN wheezing 06/12/23 06/21/23 aerosol inhaler (Ventolin HFA) clonazepam 2 mg tablet 2 mg PO BID PRN Anxiety 06/12/23 06/21/23 fluticasone 500 mcg-salmeterol 50 1 ea inhalation BID 06/12/23 06/21/23 mcg/dose blistr powdr for inhalation (Advair Diskus) ipratropium 0.5 mg-albuterol 3 mg 3 ml inhalation QID PRN WHEEZING 06/12/23 06/21/23 (2.5 mg base)/3 mL nebulization soln doxycycline hyclate 100 mg tablet 100 mg PO BID 06/21/23 06/21/23 gabapentin 600 mg tablet 600 mg PO TID 06/21/23 06/21/23 Previous Rx's Medication Instructions Recorded fluticasone propionate 50 1 spray intranasal Q12H #16 grams 06/14/23 mcg/actuation nasal spray,suspension Allergies Allergy/AdvReac Type Severity Reaction Status Date / Time latex [LATEX] Allergy Intermediate RASH Verified 02/18/23 17:39 ondansetron [From Zofran] Allergy Intermediate Shortness Verified 02/18/23 17:39 of Breath propranolol Allergy Intermediate Shortness Verified 02/18/23 17:39 of Breath adhesive tape [ADHESIVE TAPE] AdvReac Intermediate RASH Verified 02/18/23 17:39 Review of Systems Review of Systems: Yes all other systems are reviewed and are negative PMFSH Past Medical History Attestation statement: The following information was validated with the patient. Source: old records reviewed and nursing notes reviewed Medical History Polysubstance abuse Pneumonitis Asthma Asthma Pneumonia due to COVID-19 virus COVID-19 Bipolar disorder PTSD (post-traumatic stress disorder) Depression Anxiety Asthma GERD (gastroesophageal reflux disease) Crohn's disease Opioid use disorder Family History Family History Father Colon cancer Mother No problems noted. Brother Autism Sister Bipolar disorder Maternal Aunt Breast cancer Social History Social History Household Members: None Housing: Apartment Housing Other:: motel Do you presently have visiting nurse or other home services: No Alcohol intake: never Patient Tobacco Use Status: Former Tobacco user Cigarette Packs Per Day: 0.33 Cigarettes Per Day: 6.6 Years Smoked: 9 Smoked in Last 30 Days: No e-Cigarette/Vaping Use: Former Use Second Hand Smoke Exposure: Yes Use of substances other than those prescribed or required for medical reasons: No Substance Use Type: Heroin Advance Directives: Yes Advance Directives on File: Yes Advance Directives Date on File: 05/07/21 Patient : No service: No Current occupational status: unemployed Cognitive needs: No Hearing needs: No Vision needs: No Physical Exam ED Vital Signs: Vital Signs - 24 hr 10/26/23 13:38 10/26/23 14:05 10/26/23 14:15 Temperature 98.1 F 98.3 F Pulse Rate 103 H 113 H 114 H Respiratory Rate 24 H 26 H 26 H Blood Pressure 144/86 H 149/97 H Pulse Oximetry 94 95 Oxygen Delivery Method Room Air Room Air 10/26/23 14:27 10/26/23 15:50 Temperature Pulse Rate 124 H 117 H Respiratory Rate 26 H 22 H Blood Pressure Pulse Oximetry Oxygen Delivery Method BMI result Body Mass Index 20.6 tachycardia be secondary to multiple albuterol/nebulizing treatment Appearance: Alert.? Oriented X3.? Monitor acute distress.? Head: Normocephalic, atraumatic, no step-offs or deformities Eyes: Pupils equal, round and reactive to light.? ENT: Pharynx normal.? Neck: Normal inspection.? Neck supple.? CVS: Normal heart rate and rhythm.? Pulses normal.? Respiratory: Moderate respiratory distress.? Breath with expiratory wheezing bilaterally. Abdomen: Soft and nontender.? Skin: Skin warm and dry.? Normal skin color.? Normal skin turgor.? Extremities: No lower extremity edema.? No calf ttp. 5/5 strength to bilateral upper and lower extremities Neuro: Oriented X 3.? No motor deficit.? No sensory deficit. CN 2-12 intact Course Course Course Narrative: RME- 28-year-old female presents for evaluation shortness of breath, cough. She has a history of asthma. She is quite wheezy on exam. Plan for viral swabs, chest x-ray and bronchodilator protocol Reevaluation(s) Reevaluation #1: Flu, COVID, RSV negative. CXR pending Still wheezing Time: 15:31 Reevaluation #2: Xray pending.Plan for hospital admission Time: 15:36 Reevaluation #3: Denies x-ray unremarkable. Hospitalist here for admission. Time: 15:55 Medications Administered Generic Name Dose Route Start Last Admin Trade Name Freq PRN Reason Stop Dose Admin Magnesium Sulfate 2 gm in 50 mls @ 25 mls/hr 10/26/23 14:22 10/26/23 14:30 Magnesium Sulfate/H2o IV 10/26/23 16:21 25 mls/hr ONCE ONE Administration Discontinued Medications Generic Name Dose Route Start Last Admin Trade Name Freq PRN Reason Stop Dose Admin Albuterol Sulfate 12 puff 10/26/23 14:03 10/26/23 14:07 Albuterol Sulfate 90 Mcg 8 Gm Inhaler INHALE 10/26/23 14:04 12 puff ONCE ONE Administration Levalbuterol HCl 2.5 mg/ 0 mg 10/26/23 15:44 10/26/23 15:49 Ipratropium [place] 0.5 mg INHALE 10/26/23 15:45 5 dose ONCE ONE Administration Levalbuterol HCl 3.75 mg 10/26/23 14:20 10/26/23 14:23 Levalbuterol Hcl 1.25 Mg/3 Ml Vial.Neb INHALE 10/26/23 14:21 3.75 mg ONCE ONE Administration Methylprednisolone Sodium Succinate 125 mg 10/26/23 14:22 10/26/23 14:30 Methylprednisolone Sod Succ 125 Mg/2 Ml Vial IVPUSH 10/26/23 14:23 125 mg ONCE ONE Administration Medical Decision Making Medical Decision Making [facility] Narrative: 1424 28 yo f presents w/ sob and wheezing X1 week worsening over the past two days PE- significant wheezing Concerns for acute asthma vs viral illness vs bronchitis. Unlikely PE, ACS, PNA, ARDS. Plan- labs, viral test, xray Differential Diagnosis Differential Diagnoses: The differential diagnosis associated with the presentation includes Concerns for acute asthma vs viral illness vs bronchitis. Unlikely PE, ACS, PNA, ARDS. Admission/Observation Consideration of admission/observation: Escalation of care including admissi on/observation considered Consult Healthcare Provider Management of the patient was discussed with: Hospitalist Lab Data [facility] Lab Attestation statement: I reviewed the patient's lab results. Labs: Lab Results 10/26/23 Range/Units 14:16 Influenza Type A (PCR) NEGATIVE (Negative) Influenza Type B (PCR) NEGATIVE (Negative) RSV RNA Qual (PCR) NEGATIVE (Negative) SARS-CoV-2 RNA (RT-PCR) NEGATIVE (Negative) Independent Interpretation I performed an independent interpretation of an: Plain X-Ray (XR/XR chest 2V IMPRESSION: No acute cardiopulmonary disease.) Radiology Impression Discussion of test interpretation with radiology: I have reviewed the radiologist's reading. External Record Review External record reviewed: Inpatient record, Office record, Outpatient record, Prior outpatient labs, Prior outpatient radiology, Primary care record and Outside ED record Chronic Conditions Patient?s care impacted by: Other (bipolar, ptsd, alfredo on meethadone, asthma ) Social Determinants Patient?s care significantly limited by Social Determinants of Health including: Alcoholism and drug addiction in family and Other Social Determinant of Health Critical Care Time Critical Care Time Critical Care Time: Yes Total Critical Care Time: 35 Attestation: I attest to this time spent taking care of the patient, obtaining history, physical, reviewing labs, imaging, speaking to my attending, speaking to specialist. Discharge Plan Discharge Clinical Impression: Asthma exacerbation Patient Disposition: Admitted As Inpatient
[2023-10-26] MEDS: Albuterol Sulfate 90 MCG 8 GM INHALER 12 PUFF INHALE (14:07)
--- NOTE | 2023-10-26 14:21 | PC.NURSE ---
a&ox4. vss and up to date aside from being tachycardic. sinus tachy on the playground monitor. pt presents to the ED d/t dyspnea x a few days. hx of asthma. pt verbalizes not being compliant w/ treatments d/t running out of medication. sob/wob noted. audible wheezing noted. ED provider bedside assessing pt. 20gIV placed in the right forearm. swabs obtained/sent to lab. medication administered per provider order. pt receiving duoneb via RT at this time. effectiveness pending. plan of care ongoing at this time. call quinn placed within reach.
[2023-10-26] MEDS: levalbuterol HCL 1.25 MG/3 ML VIAL.NEB 3.75 MG INHALE (14:23)
[2023-10-26] MEDS: Magnesium Sulfate/H2O 2 GM/50 ML PIGGYBACK IV (14:30)
[2023-10-26] MEDS: methylPREDNISolone Sod Succ 125 MG/2 ML VIAL IVPUSH (14:30)
[2023-10-26 14:57] LABS: Influenza A PCR NEGATIVE (Negative); Influenza B PCR NEGATIVE (Negative); Resp Syncy Virus RNA Qual PCR NEGATIVE (Negative); SARS COV2 PCR INHOUSE NEGATIVE (Negative)
[2023-10-26] MEDS: levalbuterol HCL 2.5 MG, Ipratropium Bromide 0.5 MG INHALE (15:49)
--- NOTE | 2023-10-26 16:03 | P.HPHOSP_ITS ---
History of Present Illness Date of Service: 10/26/23 Attending physician on admission: Herbert Thomas Chief Complaint: sob, wheezing, cough 28 year old female with history of moderate persistent asthma, history of polysubstance abuse now on methadone, Gerd, mood disorder presented to the ED for evaluation of upper respiratory symptoms ongoing x 1 week but worsening over the last 2-3 days. Reports productive cough, sob, wheezing, epistaxis. Has been violently coughing resulting vomiting with blood tinged vomitus. No fevres, chills, st, abd pain, diarrhea, lightheadedness, chest pain. No sick contacts. Has been clean for 2 months, now on methadone and recently quit smoking cigarettes. No etoh use. Uses THC but does not smoke. On arrival, pt tachycardic in the low 100s, otherwise stable. CBC, BMP pending. CRX negative for acute disease. Resp viral panel pending. Pt has ongoing coarse expiratory wheezing depsite IV steroids and multiple nebulized treatments. Review of Systems Review of Systems: Yes all other systems are reviewed and are negative [facility] Medical History Polysubstance abuse Pneumonitis Asthma Asthma Pneumonia due to COVID-19 virus COVID-19 Bipolar disorder PTSD (post-traumatic stress disorder) Depression Anxiety Asthma GERD (gastroesophageal reflux disease) Crohn's disease Opioid use disorder Family History Father Colon cancer Mother No problems noted. Brother Autism Sister Bipolar disorder Maternal Aunt Breast cancer Social History Household Members: None Housing: Apartment Housing Other:: motel Do you presently have visiting nurse or other home services: No Alcohol intake: never Patient Tobacco Use Status: Former Tobacco user Cigarette Packs Per Day: 0.33 Cigarettes Per Day: 6.6 Years Smoked: 9 e-Cigarette/Vaping Use: Former Use Second Hand Smoke Exposure: Yes Substance Use Type: Heroin Advance Directives Date on File: 05/07/21 service: No Current occupational status: unemployed Cognitive needs: No Hearing needs: No Vision needs: No Meds Allergies Allergy/AdvReac Type Severity Reaction Status Date / Time latex [LATEX] Allergy Intermediate RASH Verified 02/18/23 17:39 ondansetron [From Zofran] Allergy Intermediate Shortness Verified 02/18/23 17:39 of Breath propranolol Allergy Intermediate Shortness Verified 02/18/23 17:39 of Breath adhesive tape [ADHESIVE TAPE] AdvReac Intermediate RASH Verified 02/18/23 17:39 Active Medications: Current Medications Magnesium Sulfate (Magnesium Sulfate/H2o) 2 gm in 50 mls @ 25 mls/hr IV ONCE ONE Stop: 10/26/23 16:21 Last Admin: 10/26/23 14:30 Dose: 25 mls/hr Home Medications Medication Instructions Recorded Confirmed Last Taken Type clonidine HCl 0.1 mg tablet 0.1 mg PO TID PRN ANXIETY 02/18/23 10/26/23 Unknown History albuterol sulfate 90 mcg/actuation 2 puff inhalation Q6H PRN wheezing 06/12/23 10/26/23 Unknown History aerosol inhaler (Ventolin HFA) clonazepam 2 mg tablet 2 mg PO BID Anxiety 06/12/23 10/26/23 Unknown History fluticasone 500 mcg-salmeterol 50 1 ea inhalation BID PRN Shortness 06/12/23 10/26/23 Unknown History mcg/dose blistr powdr for Of Breath Or Wheezing inhalation (Advair Diskus) ipratropium 0.5 mg-albuterol 3 mg 3 ml inhalation QID PRN WHEEZING 06/12/23 10/26/23 Unknown History (2.5 mg base)/3 mL nebulization soln gabapentin 600 mg tablet 600 mg PO BEDTIME 06/21/23 10/26/23 Unknown History clonazepam 2 mg tablet 2 mg PO DAILY PRN Anxiety 10/26/23 10/26/23 Unknown History fluticasone propionate 50 1 spray intranasal Q12H PRN 10/26/23 10/26/23 Unknown History mcg/actuation nasal Allergy Symptoms spray,suspension fluvoxamine 100 mg tablet 100 mg PO BEDTIME 10/26/23 10/26/23 Unknown History methadone 10 mg/mL oral concentrate 40 mg PO QPM 10/26/23 10/25/23 History methadone 10 mg/mL oral concentrate 65 - 70 mg PO QAM 10/26/23 Unknown History promethazine 12.5 mg tablet 12.5 mg PO BID nausea 10/26/23 10/26/23 Unknown History Physical Exam Vital Signs and Narrative: Vital Signs: Last Vital Signs Temp 98.3 F 10/26/23 14:15 Pulse 117 H 10/26/23 15:50 Resp 22 H 10/26/23 15:50 BP 149/97 H 10/26/23 14:15 Pulse Ox 95 10/26/23 14:15 O2 Del Method Room Air 10/26/23 14:15 BMI result Body Mass Index 20.6 Constitutional - Awake and Alert, No apparent distress Eyes - PERRLA, EOMI Cardiovascular - S1S2, RRR, No edema Respiratory - Normal lung expansion, Normal respiratory effort, No respiratory distress, coarse expiratory wheezing Gastrointestinal - NT / ND; +BS; No rebound or guarding Extremities - no calf tenderness bilaterally, no swelling Skin - Warm/Dry Neurological - Alert & oriented x3, tremors Psychological - Appropriate affect Results Labs Labs: Laboratory Results - last 24 hr 10/26/23 14:16 Influenza Type A (PCR) NEGATIVE Influenza Type B (PCR) NEGATIVE RSV RNA Qual (PCR) NEGATIVE SARS-CoV-2 RNA (RT-PCR) NEGATIVE Imaging Radiologist's Impressions: Impressions Chest X-Ray 10/26/23 15:40 IMPRESSION: No acute cardiopulmonary disease. Assessment and Plan (1) Asthma exacerbation: Status: Acute Plan 28 year old female with history of moderate persistent asthma, history of polysubstance abuse now on methadone, Gerd, mood disorder to be observed for asthma exacerbation #Acute asthma exacerbation -CXR negative -iv methylprednisolone 40mg tid -duonebs q4h while awake, levalbuterol prn -check viral respiratory panel -symptomatic management -continue maintenance inhalers #Opioid dependence -no illcit use in 2 months per patient -continue methadone #Former cigarette smoker -declines nrt at this time #Mood disorder -continue home meds dvt prophylaxis- scp's, early ambulation full code Quality Stroke Does the patient have a stroke diagnosis?: No VTE Prior VTE?: No VTE Risk Level:: Medical - low VTE Device Contraindication: N/A - Device Ordered VTE Drug Contraindication: Treatment Not Indicated
[2023-10-26] MEDS: 0.9 % Sodium Chloride Flush 3 ML SYRINGE IVFLUSH (16:21)
[2023-10-26] MEDS: methylPREDNISolone Sod Succ 40 MG/ML VIAL IVPUSH (16:21)
[2023-10-26] MEDS: Albuterol/Iprat 2.5/0.5MG 3 ML AMPUL.NEB INHALE ×2 (16:22→19:32)
[2023-10-26] MEDS: guaiFENesin 200 MG/10 ML 10 ML LIQUID PO ×2 (16:29→21:10)
--- NOTE | 2023-10-26 16:32 | PC.NURSE ---
pt received 2nd breathing treatment via RT. medication administered per provider order. pt remains sinus tachy on the air sampling and monitoring. pt tremulous at this time but states that this always happens when receiving breathing treatment. audible wheezing now subsided at this time. respirations even and slightly labored. productive cough still noted. pt aware of plan in regards to being admitted. plan of care ongoing. call quinn placed within reach.
--- NOTE | 2023-10-26 16:34 | PC.NURSE ---
pt refused tylenol and ibuprofen administration d/t admitting provider stating that he would order her dilaudid to decrease pain. pt still verbalizing 8/10 pain at this time. will administer medication when able. IV abx continues to infuse at this time. plan of care ongoing. call quinn placed within reach.
--- NOTE | 2023-10-26 16:44 | PHA.MEDREC ---
Pharmacy Consult ? Medication Reconciliation Pharmacy has completed the medication reconciliation. spoke with patient to confirm medications. According to PDMP clonazepam prescribed as 2mg BID but she reports taking 2mg TID and an extra tablet prn. PDMP also reports gabapentin 600mg daily but she reports taking TID. She reports methadone split dose of 65-70mg in the morning and 40mg in the evening with last dose of 40mg yesterday. She reports that she gets it from [facility] and she currently has bottles with her.
[2023-10-26 16:54] LABS: MANUAL DIFF FLAG NO
[2023-10-26 17:01] LABS: Basophils Percent Auto 0.2 % (0-2); Eosinophils Absolute Auto 0.1 X10*3/uL (0.0-0.4); Eosinophils Percent Auto 1.2 % (0-4); Hematocrit 35.6 % (37.0-47.0); Hemoglobin 11.6 g/dl (12.0-16.0); Imm Gran Abs Auto 0.03 X10*3/uL (0.00-0.03); Imm Gran Pct Auto 0.3 % (0.0-0.4); Lymphocytes Percent Auto 9.6 % (20-40); Mean Corpuscular HGB Conc 32.6 g/dl (31.0-35.0); Mean Corpuscular Volume 85.8 fL (80.0-98.0); Mean Platelet Volume 9.4 fL (9.4-12.3); Monocytes Absolute Auto 0.1 X10*3/uL (0.1-1.2); Monocytes Percent Auto 1.3 % (2-11); Neutrophils Percent Auto 87.4 % (45-73); Platelet Count 289 X10*3/uL (160-400); Red Blood Count 4.15 X10*6/uL (4.20-5.50); Red Cell Distribution Width 13.4 % (11.0-16.0); White Blood Count 10.3 X10*3/uL (4.8-10.8)
[2023-10-26 17:25] LABS: Anion Gap 16 (12-20); Blood Urea Nitrogen 13 mg/dL (9-16); Calcium 8.4 mg/dL (8.4-10.2); Carbon Dioxide 25 mmol/L (22-29); Chloride 102 mmol/L (96-108); Creatinine Clr Calc Pharmacy 104.6; Estimated Glomerular Filt Rate > 60; Glucose Random 230 mg/dL (60-115); Potassium 3.6 mmol/L (3.3-5.1); Sodium 139 mmol/L (135-145)
[2023-10-26] MEDS: methADONE HCl 20 MG/2 ML ORAL.CONC 40 MG PO (19:15)
--- NOTE | 2023-10-26 19:52 | PC.NURSE ---
Verified last Methadone dose with Kendal at [facility] [phone]. PT has a current split dose of 60mg (am) 20mg (pm). 10/24/23 PT received 60mg at 11am and then received take home bottles through 10/26/23. Form faxed to pharmacy.
--- NOTE | 2023-10-26 20:01 | PC.NURSE ---
Report give to LAYLA Forte in overflow.
[2023-10-26] MEDS: Gabapentin 600 MG TABLET PO (20:10)
[2023-10-26] MEDS: clonazePAM 1 MG TABLET 2 MG PO (20:10)
[2023-10-26] MEDS: Promethazine HCL 25 MG TABLET 12.5 MG PO (20:10)
--- NOTE | 2023-10-26 20:41 | HE.PHANOTE ---
METHADONE Patient receives methadone from [facility] [phone], patient has split dose of 20 mg in the evening and 60 mg in the morning. last taken 10/23 @ 11am
[2023-10-26] MEDS: guaiFEN/Codeine SF 200/20/10ML 10 ML LIQUID PO (21:00)
[2023-10-26] MEDS: fluvoxaMINE Maleate 50 MG TABLET 100 MG PO (21:42)
[2023-10-27] MEDS: methylPREDNISolone Sod Succ 40 MG/ML VIAL IVPUSH ×3 (00:51→15:20)
[2023-10-27] MEDS: cloNIDine HCL 0.1 MG TABLET PO (00:51)
[2023-10-27] MEDS: guaiFEN/Codeine SF 200/20/10ML 10 ML LIQUID PO ×3 (02:11→14:32)
[2023-10-27 06:24] LABS: MANUAL DIFF FLAG NO
[2023-10-27 06:28] LABS: Basophils Percent Auto 0.1 % (0-2); Hematocrit 34.2 % (37.0-47.0); Hemoglobin 11.2 g/dl (12.0-16.0); Imm Gran Abs Auto 0.05 X10*3/uL (0.00-0.03); Imm Gran Pct Auto 0.4 % (0.0-0.4); Lymphocytes Absolute Auto 0.9 X10*3/uL (1.2-4.9); Lymphocytes Percent Auto 7.9 % (20-40); Mean Corpuscular HGB Conc 32.7 g/dl (31.0-35.0); Mean Corpuscular Hemoglobin 27.9 pg (27.0-33.0); Mean Corpuscular Volume 85.3 fL (80.0-98.0); Mean Platelet Volume 9.5 fL (9.4-12.3); Monocytes Absolute Auto 0.3 X10*3/uL (0.1-1.2); Monocytes Percent Auto 2.9 % (2-11); Neutrophils Percent Auto 88.7 % (45-73); Platelet Count 333 X10*3/uL (160-400); Red Blood Count 4.01 X10*6/uL (4.20-5.50); Red Cell Distribution Width 13.3 % (11.0-16.0); White Blood Count 11.3 X10*3/uL (4.8-10.8)
--- NOTE | 2023-10-27 06:47 | PC.NURSE ---
Assumed care of pt at 0315. pt sleeping. respirations even and unlabored. plan of are ongoing
[2023-10-27 07:01] LABS: Anion Gap 11 (12-20); Blood Urea Nitrogen 12 mg/dL (9-16); Calcium 9.2 mg/dL (8.4-10.2); Carbon Dioxide 27 mmol/L (22-29); Chloride 105 mmol/L (96-108); Creatinine Clr Calc Pharmacy 114.4; Estimated Glomerular Filt Rate > 60; Glucose Random 147 mg/dL (60-115); Potassium 4.7 mmol/L (3.3-5.1); Sodium 138 mmol/L (135-145)
[2023-10-27 07:26] VITALS: BP 138/72; PULSE 90; RESP 16; TEMP 36.1; O2SAT 95
--- NOTE | 2023-10-27 08:20 | PC.NURSE ---
pt a/o x 4 no sob/scott noted speaks in full sentences. amb (i) gait steady to bathroom and btb. pt c/o l chest disc 2ndary to a collapse lung earlier this year states pt. pt aware of plan of care. will continue to monitor.
[2023-10-27] MEDS: Promethazine HCL 25 MG TABLET 12.5 MG PO (08:35)
[2023-10-27] MEDS: clonazePAM 1 MG TABLET 2 MG PO (08:37)
[2023-10-27] MEDS: methADONE HCl 20 MG/2 ML ORAL.CONC 60 MG PO (08:42)
[2023-10-27] MEDS: Fluticasone/Vilanterol 200/25 BLST.W.DEV 1 PUFF INHALE (08:55)
[2023-10-27] MEDS: Albuterol/Iprat 2.5/0.5MG 3 ML AMPUL.NEB INHALE ×3 (08:55→15:26)
[2023-10-27 08:57] VITALS: PULSE 102; RESP 16; O2SAT 98
--- NOTE | 2023-10-27 09:37 | PC.NURSE ---
dr. dominguez at bedside, pt aware of plan of care.
[2023-10-27 11:07] LABS: Adenovirus PCR Not Detected (Not Detect.); Bordetella parapertussis PCR Not Detected (Not Detect.); Bordetella pertussis PCR Not Detected (Not Detect.); Chlamydia pneumoniae PCR Not Detected (Not Detect.); Coronavirus 229E PCR Not Detected (Not Detect.); Coronavirus HKU1 PCR Not Detected (Not Detect.); Coronavirus NL63 PCR Not Detected (Not Detect.); Coronavirus OC43 PCR Not Detected (Not Detect.); Human metapneumovirus PCR Not Detected (Not Detect.); Influenza A PCR Not Detected (Not Detect.); Influenza B PCR Not Detected (Not Detect.); Mycoplasma pneumoniae PCR Not Detected (Not Detect.); Parainfluenza 1 PCR Not Detected (Not Detect.); Parainfluenza 2 PCR Not Detected (Not Detect.); Parainfluenza 3 PCR Not Detected (Not Detect.); Parainfluenza 4 PCR Not Detected (Not Detect.); RSV PCR Not Detected (Not Detect.); Rhino/Enterovirus PCR Not Detected (Not Detect.)
[2023-10-27 11:17] LABS: SARS-CoV-2 PCR Not Detected (Not Detect.)
--- NOTE | 2023-10-27 11:53 | P.PNIM_ITS ---
Subjective Subjective Date of Service: 10/27/23 Interval History: Being followed for acute asthma exacerbation. Complaining of persistent chest tightness and wheeze, denies fever, no chills, no nausea, no vomiting, no abdominal pain, chest x-ray unremarkable Review of Systems All other system reviewed and negative Physical Exam 2 Vital Signs: Vital Signs: Last Vital Signs Temp 97 F 10/27/23 07:26 Pulse 102 H 10/27/23 08:57 Resp 16 10/27/23 08:57 BP 138/72 10/27/23 07:26 Pulse Ox 95 10/27/23 07:26 O2 Del Method Room Air 10/27/23 07:26 BMI result Body Mass Index 20.6 Const: Other: General alert oriented x3, in no acute distress. Neck supple no JVD. CVS regular rate rhythm, Respiratory lungs bilateral expiratory wheeze, no use of accessory muscles. Gastrointestinal abdomen soft, nontender, bowel sounds audible, no guarding , no rigidity. Extremities no edema. Neuro nonfocal Skin no rash Psych appropriate affect Objective Data Active Medications Acetaminophen (Acetaminophen 325 Mg Tablet) 650 mg PO Q6H PRN PRN Reason: Pain, Mild (Pain Scale 1-3) Albuterol Sulfate (Albuterol Sulfate 90 Mcg 8 Gm Inhaler) 2 puff INHALE RQ6H PRN PRN Reason: wheezing Albuterol/Ipratropium (Albuterol/Iprat 2.5/0.5mg 3 Ml Ampul.Neb) 3 ml INHALE RQ4H WHILE AWAKE [facility] Last Admin: 10/27/23 08:55 Dose: 3 ml Documented By: DORY Albuterol/Ipratropium (Albuterol/Iprat 2.5/0.5mg 3 Ml Ampul.Neb) 3 ml INHALE RQID PRN PRN Reason: WHEEZING Clonazepam (Clonazepam 1 Mg Tablet) 2 mg PO BID [facility] Last Admin: 10/27/23 08:37 Dose: 2 mg Documented By: JEANA Clonazepam (Clonazepam 1 Mg Tablet) 2 mg PO DAILY PRN PRN Reason: Anxiety Clonidine HCl (Clonidine Hcl 0.1 Mg Tablet) 0.1 mg PO TID PRN; Protocol PRN Reason: ANXIETY Last Admin: 10/27/23 00:51 Dose: 0.1 mg Documented By: HO.DIAZDEM Fluticasone Propionate (Fluticasone Propionate Nasal 16 Gm Pilot) 1 spray NOSTRIL-B Q12H PRN PRN Reason: Allergy Symptoms Fluticasone/Vilanterol (Fluticasone/Vilanterol 200/25 Blst.W.Dev) 1 puff INHALE RDAILY [facility] Last Admin: 10/27/23 08:55 Dose: 1 puff Documented By: DORY Fluvoxamine Maleate (Fluvoxamine Maleate 50 Mg Tablet) 100 mg PO BEDTIME [facility] Last Admin: 10/26/23 21:42 Dose: 100 mg Documented By: ESTHER Gabapentin (Gabapentin 600 Mg Tablet) 600 mg PO BEDTIME [facility] Last Admin: 10/26/23 20:10 Dose: 600 mg Documented By: GRANT Guaifenesin/Codeine Phosphate (Guaifen/Codeine Sf 200/20/10ml 10 Ml Liquid) 10 ml PO Q6H [facility] Last Admin: 10/27/23 08:38 Dose: 10 ml Documented By: JEANA Levalbuterol HCl (Levalbuterol Hcl 1.25 Mg/3 Ml Vial.Neb) 1.25 mg INHALE Q3H PRN PRN Reason: Shortness of Breath/Wheezing Methadone HCl (Methadone Hcl 20 Mg/2 Ml Oral.Conc) 20 mg PO DAILY@2100 [facility] Methadone HCl (Methadone Hcl 20 Mg/2 Ml Oral.Conc) 60 mg PO DAILY [facility] Last Admin: 10/27/23 08:42 Dose: 60 mg Documented By: JEANA Methylprednisolone Sodium Succinate (Methylprednisolone Sod Succ 40 Mg/Ml Vial) 40 mg IVPUSH Q8H [facility] Last Admin: 10/27/23 08:36 Dose: 40 mg Documented By: JEANA Ondansetron HCl (Ondansetron Hcl 4 Mg/2 Ml Vial) 4 mg IVPUSH Q8H PRN PRN Reason: Nausea and Vomiting Promethazine HCl (Promethazine Hcl 25 Mg Tablet) 12.5 mg PO BID [facility] Last Admin: 10/27/23 08:35 Dose: 12.5 mg Documented By: JEANA Senna (Sennosides 8.6 Mg Tablet) 17.2 mg PO BEDTIME PRN PRN Reason: Constipation Sodium Chloride (0.9 % Sodium Chloride Flush 3 Ml Syringe) 3 ml IVFLUSH QSHIFT [facility] Last Admin: 10/27/23 09:28 Dose: Not Given Documented By: JEANA Non-Admin Reason: given, but unable to chart Labs 10/27/23 06:03 10/27/23 06:03 Labs: Laboratory Results - last 24 hr 10/26/23 10/26/23 10/26/23 14:16 16:04 16:50 MCV 85.8 MCH 28.0 MCHC 32.6 RDW 13.4 Plt Count 289 D MPV 9.4 Immature Gran % (Auto) 0.3 Neut % (Auto) 87.4 H Lymph % (Auto) 9.6 L [place] % (Auto) 1.3 L Eos % (Auto) 1.2 Baso % (Auto) 0.2 Lymph # (Auto) 1.0 L [place] # (Auto) 0.1 Eos # (Auto) 0.1 Baso # (Auto) 0.0 Abs Immat Gran (auto) 0.03 Absolute Neuts (auto) 9.0 H Absolute Nucleated RBC 0.000 Nucleated RBC % (auto) 0.0 Anion Gap 16 Estim Creat Clear Calc 104.6 Estimated GFR > 60 Random Glucose 230 H Calcium 8.4 Respiratory Panel [place] See Note Adenovirus (Rapid PCR) Not Detected B.pert (TEM-PCR) Not Detected B.parapertussis DNA PCR Not Detected C. pneumoniae DNA (PCR) Not Detected Coronavirus OC43 (PCR) Not Detected Coronavirus HKU1 (PCR) Not Detected Coronavirus 229E (PCR) Not Detected Coronavirus NL63 (PCR) Not Detected Human Metapneumovir PCR Not Detected Influenza A (RT-PCR) Not Detected Influenza Type A (PCR) NEGATIVE Influenza B (RT-PCR) Not Detected Influenza Type B (PCR) NEGATIVE M. pneumoniae (PCR) Not Detected Parainfluenza 1 (PCR) Not Detected Parainfluenza 2 (PCR) Not Detected Parainfluenza 3 (PCR) Not Detected Parainfluenza 4 (PCR) Not Detected RSV (PCR) Not Detected RSV RNA Qual (PCR) NEGATIVE Entero/Rhino (PCR) Not Detected SARS-CoV-2 RNA (RT-PCR) NEGATIVE Not Detected 10/27/23 06:03 MCV 85.3 MCH 27.9 MCHC 32.7 RDW 13.3 Plt Count 333 MPV 9.5 Immature Gran % (Auto) 0.4 Neut % (Auto) 88.7 H Lymph % (Auto) 7.9 L [place] % (Auto) 2.9 Eos % (Auto) 0.0 Baso % (Auto) 0.1 Lymph # (Auto) 0.9 L [place] # (Auto) 0.3 Eos # (Auto) 0.0 Baso # (Auto) 0.0 Abs Immat Gran (auto) 0.05 H Absolute Neuts (auto) 10.0 H Absolute Nucleated RBC 0.000 Nucleated RBC % (auto) 0.0 Anion Gap 11 L Estim Creat Clear Calc 114.4 Estimated GFR > 60 Random Glucose 147 H Calcium 9.2 D Respiratory Panel [place] Adenovirus (Rapid PCR) B.pert (TEM-PCR) B.parapertussis DNA PCR C. pneumoniae DNA (PCR) Coronavirus OC43 (PCR) Coronavirus HKU1 (PCR) Coronavirus 229E (PCR) Coronavirus NL63 (PCR) Human Metapneumovir PCR Influenza A (RT-PCR) Influenza Type A (PCR) Influenza B (RT-PCR) Influenza Type B (PCR) M. pneumoniae (PCR) Parainfluenza 1 (PCR) Parainfluenza 2 (PCR) Parainfluenza 3 (PCR) Parainfluenza 4 (PCR) RSV (PCR) RSV RNA Qual (PCR) Entero/Rhino (PCR) SARS-CoV-2 RNA (RT-PCR) Assessment and Plan (1) Acute asthma exacerbation: Status: Acute (2) Mood disorder: Status: Acute Plan 28 year old female with history of moderate persistent asthma, history of polysubstance abuse now on methadone, Gerd, mood disorder to be observed for asthma exacerbation #Acute asthma exacerbation with history of moderate persistent asthma -persistent shortness of breath and chest tightness, CXR negative -continue iv methylprednisolone 40mg tid,duonebs q4h while awake, levalbuterol prn, continue cough medication -viral respiratory panel negative -continue maintenance inhalers #Opioid dependence -no illcit use in 2 months per patient -continue methadone #Former cigarette smoker -declines nrt #Mood disorder -continue home meds dvt prophylaxis- scp's, early ambulation full code Disposition home when medically stable recommend out of bed to chair and ambulate as tolerated. Quality Stroke Does the patient have a stroke diagnosis?: No VTE Prior VTE?: No VTE Risk Level:: Medical - low VTE Device Contraindication: N/A - Device Ordered VTE Drug Contraindication: Treatment Not Indicated
[2023-10-27 12:10] VITALS: PULSE 100; RESP 16; O2SAT 95
[2023-10-27 14:29] VITALS: BP 111/56; PULSE 86; RESP 15; TEMP 35.8; O2SAT 94
[2023-10-27] MEDS: 0.9 % Sodium Chloride Flush 3 ML SYRINGE IVFLUSH (15:20)
[2023-10-27 15:26] VITALS: PULSE 97; RESP 18; O2SAT 95
--- NOTE | 2023-10-27 15:31 | PC.NURSE ---
patient stating that her clonazapam was recently increased by her provider. previous N spoke with pharmacy who does not see med is prescribed that way currently so can not be prescribed here as patient is stating. This RN attempted to contact patient provider who prescribes med but no answer.
--- NOTE | 2023-10-27 15:33 | PC.NURSE ---
patient stating that her clonazapam was recently increased by her provider. patient states she now takes med 3 times a day instead of twice a day. previous RN spoke with pharmacy who does not see med is prescribed that way currently so can not be prescribed here as patient is stating. This RN attempted to contact patient provider who prescribes med but no answer.
--- NOTE | 2023-10-27 15:45 | PC.NURSE ---
patient requesting to sign out AMA. dr dominguez notified.
[2023-10-27 15:58] VITALS: BP 132/69; PULSE 103; RESP 18; TEMP 36.6; O2SAT 95
--- NOTE | 2023-10-27 16:31 | P.DS_ITS ---
DS: Providers Provider Date of Service: 10/27/23 Date of admission: 10/26/23 15:59 Primary care physician: None Physician DS: Diagnosis Discharge Diagnosis (1) Acute asthma exacerbation: Status: Acute (2) Mood disorder: Status: Acute DS: Summary Hospital Course Hospital Course: History of presenting illness: Date of Service: 10/26/23 Attending physician on admission: Herbert Thomas Chief Complaint: sob, wheezing, cough 28 year old female with history of moderate persistent asthma, history of polysubstance abuse now on methadone, Gerd, mood disorder presented to the ED for evaluation of upper respiratory symptoms ongoing x 1 week but worsening over the last 2-3 days. Reports productive cough, sob, wheezing, epistaxis. Has been violently coughing resulting vomiting with blood tinged vomitus. No fevres, chills, st, abd pain, diarrhea, lightheadedness, chest pain. No sick contacts. Has been clean for 2 months, now on methadone and recently quit smoking cigarettes. No etoh use. Uses THC but does not smoke. On arrival, pt tachycardic in the low 100s, otherwise stable. CBC, BMP pending. CRX negative for acute disease. Resp viral panel pending. Pt has ongoing coarse expiratory wheezing depsite IV steroids and multiple nebulized treatments. Hospital course: 28 year old female with history of moderate persistent asthma, history of polysubstance abuse now on methadone, Gerd, mood disorder admitted under observa tion for acute asthma exacerbation with history of moderate persistent asthma, patient treated with IV steroids, DuoNeb scheduled and as needed and cough medication, viral respiratory panel and chest x-ray were negative, patient improved significantly but continued to have mild shortness of breath and expiratory wheeze but since patient is requesting for discharge and able to use DuoNeb updrafts at home will discharge her on prednisone 20 mg daily for 1 week, scheduled and as needed updraft treatment and recommend to use cough syrup as needed, she is instructed to return to hospital with any recurrent or worsening symptoms of shortness of breath or chest tightness. #Opioid dependence recommend to continue methadone #Former cigarette smoker #Mood disorder -continue home meds Time Attestation Discharge Coordination Time: discharge time of ____ minutes Quality: Safe Use of Opioids Does Pt have an Active Cancer Diagnosis on the Problem List?: No Quality: Stroke Does the patient have a stroke diagnosis?: No Physical Exam Vital Signs: Vital Signs: Last Vital Signs Temp 97.9 F 10/27/23 15:58 Pulse 103 H 10/27/23 15:58 Resp 18 10/27/23 15:58 BP 132/69 10/27/23 15:58 Pulse Ox 95 10/27/23 15:58 O2 Del Method Room Air 10/27/23 15:58 BMI result Body Mass Index 20.6 Const: Other: General alert oriented x3, in no acute distress, talking in full sentences. Neck supple no JVD. CVS regular rate rhythm, Respiratory lungs good air entry few expiratory wheeze, no use of accessory muscles. Gastrointestinal abdomen soft, non tender, bowel sounds audible, no guarding , no rigidity. Extremities no edema. Neuro non focal Skin no rash Psych appropriate affect DS: Data Data Completed and Pending Completed studies during hospitalization [Text1]: Procedures Assistance with Respiratory Ventilation, Less than 24 Consecutive Hours, Continuous Positive Airway Pressure (06/21/23) Detoxification Services for Substance Abuse Treatment (11/04/21) Labs on day of discharge: Laboratory Results - last 24 hr 10/26/23 10/26/23 10/27/23 16:04 16:50 06:03 WBC 10.3 11.3 H RBC 4.15 L 4.01 L Hgb 11.6 L 11.2 L Hct 35.6 L 34.2 L MCV 85.8 85.3 MCH 28.0 27.9 MCHC 32.6 32.7 RDW 13.4 13.3 Plt Count 289 D 333 MPV 9.4 9.5 Immature Gran % (Auto) 0.3 0.4 Neut % (Auto) 87.4 H 88.7 H Lymph % (Auto) 9.6 L 7.9 L [place] % (Auto) 1.3 L 2.9 Eos % (Auto) 1.2 0.0 Baso % (Auto) 0.2 0.1 Lymph # (Auto) 1.0 L 0.9 L [place] # (Auto) 0.1 0.3 Eos # (Auto) 0.1 0.0 Baso # (Auto) 0.0 0.0 Abs Immat Gran (auto) 0.03 0.05 H Absolute Neuts (auto) 9.0 H 10.0 H Absolute Nucleated RBC 0.000 0.000 Nucleated RBC % (auto) 0.0 0.0 Sodium 139 138 Potassium 3.6 4.7 D Chloride 102 105 Carbon Dioxide 25 27 Anion Gap 16 11 L BUN 13 12 Creatinine 0.70 0.64 Estim Creat Clear Calc 104.6 114.4 Estimated GFR > 60 > 60 Random Glucose 230 H 147 H Calcium 8.4 9.2 D Respiratory Panel [place] See Note Adenovirus (Rapid PCR) Not Detected B.pert (TEM-PCR) Not Detected B.parapertussis DNA PCR Not Detected C. pneumoniae DNA (PCR) Not Detected Coronavirus OC43 (PCR) Not Detected Coronavirus HKU1 (PCR) Not Detected Coronavirus 229E (PCR) Not Detected Coronavirus NL63 (PCR) Not Detected Human Metapneumovir PCR Not Detected Influenza A (RT-PCR) Not Detected Influenza B (RT-PCR) Not Detected M. pneumoniae (PCR) Not Detected Parainfluenza 1 (PCR) Not Detected Parainfluenza 2 (PCR) Not Detected Parainfluenza 3 (PCR) Not Detected Parainfluenza 4 (PCR) Not Detected RSV (PCR) Not Detected Entero/Rhino (PCR) Not Detected SARS-CoV-2 RNA (RT-PCR) Not Detected Discharge Plan Discharge Anticipated Discharge Date/Time: 10/27/23 16:13 Patient Disposition: Home, Self-Care Discharge Diagnosis: Acute asthma exacerbation with history of moderate persistent asthma Opioid dependence Referrals: Physician,None [Primary Care Provider] - 1 Week Discharge Medications: New ipratropium-albuterol 0.5 mg-3 mg(2.5 mg base)/3 mL Solution For Nebulization 3 ml inhalation RQ4H WHILE AWAKE Qty: 180 0RF Rx Instructions: Use DuoNeb updraft every 4 hours while awake x2 days then as needed prednisone 20 mg tablet 20 mg PO DAILY Qty: 7 0RF Rx Instructions: Take with food Continued clonidine HCl 0.1 mg tablet 0.1 mg PO TID PRN (Reason: ANXIETY ) fluticasone propion-salmeterol [Advair Diskus] 500-50 mcg/dose blister with device 1 ea INHALATION BID PRN (Reason: Shortness Of Breath Or Wheezing) albuterol sulfate [Ventolin HFA] 90 mcg/actuation HFA aerosol inhaler 2 puff inhalation Q6H PRN (Reason: wheezing) clonazepam 2 mg Tablet 2 mg PO BID ipratropium-albuterol 0.5 mg-3 mg(2.5 mg base)/3 mL solution for nebulization 3 ml inhalation QID PRN (Reason: WHEEZING ) gabapentin 600 mg tablet 600 mg PO BEDTIME promethazine 12.5 mg tablet 12.5 mg PO BID fluvoxamine 100 mg tablet 100 mg PO BEDTIME clonazepam 2 mg tablet 2 mg PO DAILY PRN (Reason: Anxiety) methadone 10 mg/mL Concentrate 60 mg PO QAM methadone 10 mg/mL Concentrate 20 mg PO QPM fluticasone propionate 50 mcg/actuation spray,suspension 1 spray intranasal Q12H PRN (Reason: Allergy Symptoms) Rx Instructions: administer into each nostril Discharge Orders: Discharge Order (Routine); Ordered 10/27/23 Ordered By: Loly Luna Diet: Advance to usual diet Activity on Discharge: As tolerated Stand Alone Forms: Patient Portal Discharge page Care Plan Goals: Acute asthma exacerbation, persistent expiratory wheeze , patient clinically feels better and requesting discharge Continue DuoNeb updraft q.4 hours while awake for 2 days and then as needed Take prednisone 20 mg daily with food Returned to check with worsening symptoms of shortness of breath or chest tightness Take cough medication [id number] Health Concerns: Opioid dependence continue home medication Plan of Treatment: Follow-up with primary care physician Assessment: As above
== END 2023-10-27 16:42 | disposition home or self-care (01) ==
LOC: HO.ED 15:36 → HO.EDOVER 20:20
PROVIDERS: Physician Assistant; Admitting Provider Physician Assistant; Emergency Provider Student in an Organized Health Care Education/Training Program; Visit Provider Hospitalist
DX: J45.901 Unspecified asthma with (acute) exacerbation (principal); F39 Unspecified mood [affective] disorder; R06.02 Shortness of breath; R05.9 Cough, unspecified; K50.90 Crohn's disease, unspecified, without complications; R53.81 Other malaise; F19.10 Other psychoactive substance abuse, uncomplicated; F11.90 Opioid use, unspecified, uncomplicated; Z11.52 Encounter for screening for COVID-19; Z20.828 Contact with and (suspected) exposure to other viral communicable diseases; Z87.891 Personal history of nicotine dependence; Z79.899 Other long term (current) drug therapy
CPT/HCPCS: 0241U; 36415; 71046; 80048; 85025; 87633; 94640; 96365; 96366; 96375; 96376; 99221; 99285; J2920; J2930; J3475

== ENCOUNTER → 2023-10-26 15:59 | Outpatient (BNV) | payer OTHER, SELFPAY | PROVIDERS: Admitting Provider Physician Assistant; Emergency Provider Student in an Organized Health Care Education/Training Program; Visit Provider Physician Assistant | DX: J45.901 Unspecified asthma with (acute) exacerbation (principal); F11.21 Opioid dependence, in remission; F39 Unspecified mood [affective] disorder | CPT/HCPCS: 99222; 99238 ==

== ENCOUNTER 2023-10-31 10:28 | Emergency (ER) | payer OTHER, SELFPAY ==
[2023-10-31] VITALS (7 sets, daily range): BP systolic 93–107; BP diastolic 46–75; PULSE 91–112; RESP 14–20; TEMP 37.1–37.4; O2SAT 87–98; BMI 22.3
--- NOTE | ~2023-10-31 | XR_ITS ---
EXAMINATION: XR CHEST CLINICAL INFORMATION: Shortness of breath COMPARISON: 10/26/2023 TECHNIQUE: Frontal view of the chest was obtained. FINDINGS: Heart and mediastinum within normal limits. Lungs are well-expanded and clear. Mild right dextroscoliosis. XR/XR chest 1V IMPRESSION: No acute cardiopulmonary disease.
--- NOTE | 2023-10-31 10:49 | ED_ITS ---
HPI - General Adult General Chief complaint: Dyspnea Stated complaint: Difficulty breathing Time Seen by Provider: 10/31/23 10:35 Source: patient Mode of arrival: ambulatory Limitations: no limitations History of Present Illness HPI narrative: 28-year-old female history of opiate use disorder on methadone, PTSD, bipolar, Crohn's disease, depression, anxiety, asthma presenting w/ sob, wheezing, X few weeks, worsening over the past few days. Denies recent sick contacts. Reports she tried multiple breathing treatments at home w/ little to no relief. This feels like her typical asthma exacerbation. Patient states no drugs today however was found by mom this AM w/ suspected fentanyl Related Data Home Medications Medication Instructions Recorded Confirmed clonidine HCl 0.1 mg tablet 0.1 mg PO TID PRN ANXIETY 02/18/23 10/26/23 albuterol sulfate 90 mcg/actuation 2 puff inhalation Q6H PRN wheezing 06/12/23 10/26/23 aerosol inhaler (Ventolin HFA) clonazepam 2 mg tablet 2 mg PO BID Anxiety 06/12/23 10/26/23 fluticasone 500 mcg-salmeterol 50 1 ea inhalation BID PRN Shortness 06/12/23 10/26/23 mcg/dose blistr powdr for Of Breath Or Wheezing inhalation (Advair Diskus) ipratropium 0.5 mg-albuterol 3 mg 3 ml inhalation QID PRN WHEEZING 06/12/23 10/26/23 (2.5 mg base)/3 mL nebulization soln gabapentin 600 mg tablet 600 mg PO BEDTIME 06/21/23 10/26/23 clonazepam 2 mg tablet 2 mg PO DAILY PRN Anxiety 10/26/23 10/26/23 fluticasone propionate 50 1 spray intranasal Q12H PRN 10/26/23 10/26/23 mcg/actuation nasal Allergy Symptoms spray,suspension fluvoxamine 100 mg tablet 100 mg PO BEDTIME 10/26/23 10/26/23 methadone 10 mg/mL oral concentrate 20 mg PO QPM 10/26/23 10/26/23 methadone 10 mg/mL oral concentrate 60 mg PO QAM 10/26/23 10/26/23 promethazine 12.5 mg tablet 12.5 mg PO BID nausea 10/26/23 10/26/23 Previous Rx's Medication Instructions Recorded ipratropium 0.5 mg-albuterol 3 mg 3 ml inhalation RQ4H WHILE AWAKE 10/27/23 (2.5 mg base)/3 mL nebulization #180 mL soln prednisone 20 mg tablet 20 mg PO DAILY #7 tabs 10/27/23 albuterol sulfate 2.5 mg/3 mL 2.5 mg (3 mL) inhalation Q6H #75 mL 10/31/23 (0.083 %) solution for nebulization albuterol sulfate 90 mcg/actuation 2 inh inhalation Q4-6H PRN 10/31/23 breath activated powder inhaler shortness of breath or wheezing #1 ea azithromycin 250 mg tablet See Rx Instructions PO .COMPLEX #6 10/31/23 tabs prednisone 50 mg tablet 50 mg PO DAILY 5 days #5 tabs 10/31/23 Allergies Allergy/AdvReac Type Severity Reaction Status Date / Time latex [LATEX] Allergy Intermediate RASH Verified 02/18/23 17:39 ondansetron [From Zofran] Allergy Intermediate Shortness Verified 02/18/23 17:39 of Breath propranolol Allergy Intermediate Shortness Verified 02/18/23 17:39 of Breath adhesive tape [ADHESIVE TAPE] AdvReac Intermediate RASH Verified 02/18/23 17:39 Review of Systems 2 Review of Systems: Yes all other systems are reviewed and are negative PMFSH Past Medical History Attestation statement: The following information was validated with the patient. Source: old records reviewed and nursing notes reviewed Medical History Polysubstance abuse Pneumonitis Asthma Asthma Pneumonia due to COVID-19 virus COVID-19 Bipolar disorder PTSD (post-traumatic stress disorder) Depression Anxiety Asthma GERD (gastroesophageal reflux disease) Crohn's disease Opioid use disorder Family History Family History Father Colon cancer Mother No problems noted. Brother Autism Sister Bipolar disorder Maternal Aunt Breast cancer Social History Social History Household Members: None Housing: Apartment Housing Other:: motel Do you presently have visiting nurse or other home services: No Alcohol intake: never Patient Tobacco Use Status: Former Tobacco user Cigarette Packs Per Day: 0.33 Cigarettes Per Day: 6.6 Years Smoked: 9 e-Cigarette/Vaping Use: Former Use Second Hand Smoke Exposure: Yes Substance Use Type: Heroin Advance Directives Date on File: 05/07/21 service: No Current occupational status: unemployed Cognitive needs: No Hearing needs: No Vision needs: No Physical Exam ED Vital Signs: Vital Signs - 24 hr 10/31/23 10:30 10/31/23 10:58 10/31/23 11:16 Temperature 99.4 F Pulse Rate 103 H 91 112 H Respiratory Rate 20 18 19 Blood Pressure 102/68 107/75 Pulse Oximetry 87 L 94 Oxygen Delivery Method Room Air Nasal Cannula Oxygen Flow Rate 2 10/31/23 11:44 10/31/23 12:06 10/31/23 12:55 Temperature 98.7 F Pulse Rate 102 H 101 H 94 Respiratory Rate 14 15 18 Blood Pressure 106/61 93/46 L Pulse Oximetry 98 91 L Oxygen Delivery Method Nasal Cannula Nasal Cannula Oxygen Flow Rate 2 2 BMI result Body Mass Index 22.3 vss Appearance: Alert.? Oriented X3.? No acute distress.? Head: Normocephalic, atraumatic, no step-offs or deformities Eyes: Pupils equal, round and reactive to light.? CVS: Normal heart rate and rhythm.? Pulses normal.? Respiratory: No respiratory distress.? Breath sounds normal.? Abdomen: Soft and nontender.? Skin: Skin warm and dry.? Normal skin color.? Normal skin turgor.? Extremities: No lower extremity edema.? No calf ttp. 5/5 strength to bilateral upper and lower extremities Back: No midline tenderness, no C-spine tenderness, full range of motion, no CVA tenderness bilaterally Neuro: Oriented X 3.? No motor deficit.? No sensory deficit. CN 2-12 intact Course Reevaluation(s) Reevaluation #1: CBC unremarkable. Chemistry no acute findings requiring intervention. Chest x- ray no acute cardiopulmonary disease. Patient initially wanted to leave however I spoke to her and so did recovery, we convinced her to stay for more breathing treatments. She feels better. Breath sounds improved. Patient is saturating well on room air. I did explain to her that based off her history I would prefer she was admitted and kept for observation however patient refusing she would like to go home. She is educated on worrisome signs and symptoms and when to return. She verbalizes understanding. She also verbalizes risks of leaving such as respiratory distress and . She does not feel like she needs admission at this time. Recovery did have a long conversation with this patient and explained to her that she has support, educated her on support systems in the area. Patient will follow-up with comprehensive care unit. Time: 15:08 Medications Administered Discontinued Medications Generic Name Dose Route Start Last Admin Trade Name Frejoanna PRN Reason Stop Dose Admin Clonazepam 2 mg 10/31/23 11:39 10/31/23 14:00 Clonazepam 1 Mg Tablet PO 10/31/23 11:40 Not Given ONCE ONE Albuterol Sulfate 5 mg/ 0 mg 10/31/23 10:46 10/31/23 10:56 Albuterol/Ipratropium 3 ml INHALE 10/31/23 10:47 2.5 each ONCE ONE Administration Magnesium Sulfate 2 gm in 50 mls @ 25 mls/hr 10/31/23 10:35 10/31/23 11:04 Magnesium Sulfate/H2o IV 10/31/23 12:34 25 mls/hr ONCE ONE Administration Levalbuterol HCl 3.75 mg 10/31/23 11:40 10/31/23 11:43 Levalbuterol Hcl 1.25 Mg/3 Ml Vial.Neb INHALE 10/31/23 11:41 3.75 mg ONCE ONE Administration Methylprednisolone Sodium Succinate 125 mg 10/31/23 10:35 10/31/23 11:04 Methylprednisolone Sod Succ 125 Mg/2 Ml Vial IVPUSH 10/31/23 10:36 125 mg ONCE ONE Administration Naloxone HCl 0.2 mg 10/31/23 11:05 10/31/23 11:09 Naloxone Hcl 0.4 Mg/Ml Vial IVPUSH 10/31/23 11:06 0.2 mg STAT STA Administration Medical Decision Making Medical Decision Making MDM Narrative: 28 yo f presents w/ sob and wheezing X1 week worsening over the past two days . No SI or HI. PE- significant wheezing Concerns for acute asthma vs viral illness vs bronchitis. Unlikely PE, ACS, PNA, ARDS. Concerns for active opiate use and fentanyl use. Plan- labs, viral test, xray Differential Diagnosis Differential Diagnoses: The differential diagnosis associated with the presentation includes Concerns for acute asthma vs viral illness vs bronchitis. Unlikely PE, ACS, PNA, ARDS. Concerns for active opiate use and fentanyl use. Admission/Observation Consideration of admission/observation: Escalation of care including admission/observation considered Consult Healthcare Provider Management of the patient was discussed with: Hospitalist (recovery ) Lab Data MDM Lab Attestation statement: I reviewed the patient's lab results. 10/31/23 11:05 10/31/23 11:05 Labs: Lab Results 10/31/23 10/31/23 Range/Units 11:05 12:08 WBC 6.3 (4.8-10.8) X10*3/uL RBC 4.44 (4.20-5.50) X10*6/uL Hgb 12.2 (12.0-16.0) g/dl Hct 38.6 (37.0-47.0) % MCV 86.9 (80.0-98.0) fL MCH 27.5 (27.0-33.0) pg MCHC 31.6 (31.0-35.0) g/dl RDW 13.3 (11.0-16.0) % Plt Count 323 (160-400) X10*3/uL MPV 8.8 L (9.4-12.3) fL Immature Gran % (Auto) 0.3 (0.0-0.4) % Neut % (Auto) 51.6 (45-73) % Lymph % (Auto) 30.2 (20-40) % [place] % (Auto) 8.9 (2-11) % Eos % (Auto) 8.7 H (0-4) % Baso % (Auto) 0.3 (0-2) % Lymph # (Auto) 1.9 (1.2-4.9) X10*3/uL [place] # (Auto) 0.6 (0.1-1.2) X10*3/uL Eos # (Auto) 0.6 H (0.0-0.4) X10*3/uL Baso # (Auto) 0.0 (0.0-0.2) X10*3/uL Abs Immat Gran (auto) 0.02 (0.00-0.03) X10*3/uL Absolute Neuts (auto) 3.2 (2.0-8.3) x10*3/uL Absolute Nucleated RBC 0.000 (0.0-0.012) X10*3/uL Nucleated RBC % (auto) 0.0 (0.0-0.2) /100WBC VBG pH 7.35 (7.32-7.43) VBG pCO2 61 mmHg VBG pO2 71 mmHg VBG HCO3 34 H (22-26) mmol/L VBG O2 Saturation 92.0 % VBG Base Excess 6.9 mmol/L Sodium 139 (135-145) mmol/L Potassium 4.1 (3.3-5.1) mmol/L Chloride 103 (96-108) mmol/L Carbon Dioxide 31 H (22-29) mmol/L Anion Gap 9 L (12-20) BUN 18 H (9-16) mg/dL Creatinine 0.80 (0.5-1.4) mg/dL Estim Creat Clear Calc 92.0 Estimated GFR > 60 Random Glucose 120 H (60-115) mg/dL Calcium 8.7 (8.4-10.2) mg/dL Total Bilirubin 0.2 (0.0-1.0) mg/dL AST 52 H (5-31) U/L ALT 64 H (0-31) U/L Alkaline Phosphatase 86 (39-117) U/L Total Protein 6.9 (6.5-8.0) g/dL Albumin 3.9 (3.5-5.0) g/dL Independent Interpretation I performed an independent interpretation of an: Plain X-Ray Radiology Impression Discussion of test interpretation with radiology: I have reviewed the radiologist's reading. Prescription Management I considered prescription management with: Pain Medication Chronic Conditions Patient?s care impacted by: Other (polysubstance, asthma ) Social Determinants Patient?s care significantly limited by Social Determinants of Health including: Inadequate housing, Low income, Alcoholism and drug addiction in family, Problems related to primary support group, Unemployment, Problems related to employment and Other Social Determinant of Health Critical Care Time Critical Care Time Critical Care Time: Yes Total Critical Care Time: 35 Attestation: I attest to this time spent taking care of the patient, obtaining history, physical, reviewing labs, imaging, speaking to my attending, speaking to specialist. Discharge Plan Discharge Clinical Impression: Opioid use disorder, Asthma with exacerbation Patient Disposition: Home, Self-Care Instructions: Asthma (ED), Opioid Use Disorder (ED) Additional Instructions: Take your medications as prescribed. If you were prescribed antibiotics today, it is important that you take your medication to their entirety, do not skip any doses, do not finish them early. Follow-up with your primary care provider this week. Return to the emergency department with new or worsening symptoms. Such as fevers, chills, chest pain, shortness of breath, nausea, vomiting, dizziness, headache, vision changes, lethargy In case of emergency call 911 Patient decided they wanted to leave and not be admitted understands risks WIll follow up with comprehensive care team on friday. Alex bowling :) Prescriptions: New albuterol sulfate 2.5 mg /3 mL (0.083 %) solution for nebulization 2.5 mg inhalation Q6H Qty: 75 0RF albuterol sulfate 90 mcg/actuation aerosol powdr breath activated 2 inh inhalation Q4-6H PRN (Reason: shortness of breath or wheezing) Qty: 1 0RF azithromycin 250 mg tablet See Rx Instructions .ROUTE .COMPLEX Qty: 6 0RF Rx Instructions: For 250 mg dose pack: take 500 mg today (day 1), then 250 mg for 4 days (days 2-5) prednisone 50 mg tablet 50 mg PO DAILY 5 Days Qty: 5 0RF No Action clonidine HCl 0.1 mg tablet 0.1 mg PO TID PRN (Reason: ANXIETY ) fluticasone propion-salmeterol [Advair Diskus] 500-50 mcg/dose blister with device 1 ea INHALATION BID PRN (Reason: Shortness Of Breath Or Wheezing) albuterol sulfate [Ventolin HFA] 90 mcg/actuation HFA aerosol inhaler 2 puff inhalation Q6H PRN (Reason: wheezing) clonazepam 2 mg Tablet 2 mg PO BID ipratropium-albuterol 0.5 mg-3 mg(2.5 mg base)/3 mL solution for nebulization 3 ml inhalation QID PRN (Reason: WHEEZING ) gabapentin 600 mg tablet 600 mg PO BEDTIME promethazine 12.5 mg tablet 12.5 mg PO BID fluvoxamine 100 mg tablet 100 mg PO BEDTIME clonazepam 2 mg tablet 2 mg PO DAILY PRN (Reason: Anxiety) methadone 10 mg/mL Concentrate 60 mg PO QAM methadone 10 mg/mL Concentrate 20 mg PO QPM fluticasone propionate 50 mcg/actuation spray,suspension 1 spray intranasal Q12H PRN (Reason: Allergy Symptoms) Rx Instructions: administer into each nostril ipratropium-albuterol 0.5 mg-3 mg(2.5 mg base)/3 mL Solution For Nebulization 3 ml inhalation RQ4H WHILE AWAKE Qty: 180 0RF Rx Instructions: Use DuoNeb updraft every 4 hours while awake x2 days then as needed prednisone 20 mg tablet 20 mg PO DAILY Qty: 7 0RF Rx Instructions: Take with food Referrals: Vincent Hayes FNP-MARITZA [Primary Care Provider] - 2 days [facility] [Provider Group] - 2 days Stand Alone Forms: Work/School Release
[2023-10-31] MEDS: Albuterol Sulfate 5 MG, Albuterol/Iprat 2.5/0.5MG 3 ML 3 ML INHALE (10:56)
[2023-10-31] MEDS: methylPREDNISolone Sod Succ 125 MG/2 ML VIAL IVPUSH (11:04)
[2023-10-31] MEDS: Magnesium Sulfate/H2O 2 GM/50 ML PIGGYBACK IV (11:04)
[2023-10-31 11:09] LABS: MANUAL DIFF FLAG NO
[2023-10-31] MEDS: Naloxone HCl 0.4 MG/ML VIAL 0.2 MG IVPUSH (11:09)
[2023-10-31 11:10] LABS: Basophils Percent Auto 0.3 % (0-2); Eosinophils Absolute Auto 0.6 X10*3/uL (0.0-0.4); Eosinophils Percent Auto 8.7 % (0-4); Hematocrit 38.6 % (37.0-47.0); Hemoglobin 12.2 g/dl (12.0-16.0); Imm Gran Abs Auto 0.02 X10*3/uL (0.00-0.03); Imm Gran Pct Auto 0.3 % (0.0-0.4); Lymphocytes Absolute Auto 1.9 X10*3/uL (1.2-4.9); Lymphocytes Percent Auto 30.2 % (20-40); Mean Corpuscular HGB Conc 31.6 g/dl (31.0-35.0); Mean Corpuscular Hemoglobin 27.5 pg (27.0-33.0); Mean Corpuscular Volume 86.9 fL (80.0-98.0); Mean Platelet Volume 8.8 fL (9.4-12.3); Monocytes Absolute Auto 0.6 X10*3/uL (0.1-1.2); Monocytes Percent Auto 8.9 % (2-11); Neutrophils Absolute Auto 3.2 x10*3/uL (2.0-8.3); Neutrophils Percent Auto 51.6 % (45-73); Platelet Count 323 X10*3/uL (160-400); Red Blood Count 4.44 X10*6/uL (4.20-5.50); Red Cell Distribution Width 13.3 % (11.0-16.0); White Blood Count 6.3 X10*3/uL (4.8-10.8)
--- NOTE | 2023-10-31 11:21 | PC.NURSE ---
Patient arrived due to SOB, drowsy/falling asleep during updraft. Patient given narcan with positive response, more alert/requesting to be discharged.
[2023-10-31 11:24] LABS: Alanine Aminotransferase 64 U/L (0-31); Albumin Level 3.9 g/dL (3.5-5.0); Alkaline Phosphatase 86 U/L (39-117); Anion Gap 9 (12-20); Aspartate Amino Transferase 52 U/L (5-31); Bilirubin Total 0.2 mg/dL (0.0-1.0); Blood Urea Nitrogen 18 mg/dL (9-16); Calcium 8.7 mg/dL (8.4-10.2); Carbon Dioxide 31 mmol/L (22-29); Chloride 103 mmol/L (96-108); Estimated Glomerular Filt Rate > 60; Glucose Random 120 mg/dL (60-115); Potassium 4.1 mmol/L (3.3-5.1); Sodium 139 mmol/L (135-145); Total Protein 6.9 g/dL (6.5-8.0)
[2023-10-31] MEDS: levalbuterol HCL 1.25 MG/3 ML VIAL.NEB 3.75 MG INHALE (11:43)
--- NOTE | 2023-10-31 12:05 | PC.NURSE ---
IV removed due to patient taking it out
[2023-10-31 12:15] LABS: VBG Base Excess 6.9 mmol/L; VBG HCO3 34 mmol/L (22-26); VBG pCO2 61 mmHg; VBG pH 7.35 (7.32-7.43); VBG pO2 71 mmHg
[2023-10-31 12:16] LABS: Venous Blood Gas Refer to POC result
--- NOTE | 2023-10-31 12:58 | PC.NURSE ---
Patient sleeping, somnolent at this time.
--- NOTE | 2023-10-31 13:11 | MHC.RECOVRN ---
Met with pt in ER bed 4 after consult placed to Addiction Medicine for OUD. Pt had presented to the ED from home with mother for SOB. Pt was given Narcan by ED staff for question of OD. Upon my initial assessment Pt laying in bed, drowsy, hesitant to talk, looking over at mother with hesitation, patient acknowledged not wanting to talk with mother there regarding recovery/THIERNO. Approximatly 30 minutes I returned, mother was gone and patient was agitated, stating she wants to go home, get my meds, I'm freaking anxious! . Patient was redirected back to bed, and she agrees to stay for medical care, agreeing to receive home meds here in ED. Pt reports she is currently on methadone through [facility], and wants out of there . Pt soon after fell asleep, I will follow up and offer her other clinic information and care with [facility] outpatient if needed. Discussed with Stephanie Murrieta APRN.??
--- NOTE | 2023-10-31 14:00 | PC.NURSE ---
Patient more alert, sitting up in bed eating lunch, patient O2 93% on room air at this time.
== END 2023-10-31 15:41 | disposition home or self-care (01) ==
PROVIDERS: Physician Assistant; Emergency Provider Emergency Medicine; PCP Nurse Practitioner Family
DX: J45.901 Unspecified asthma with (acute) exacerbation (principal); F11.20 Opioid dependence, uncomplicated
CPT/HCPCS: 36415; 71045; 80053; 82803; 85025; 94640; 96374; 96375; 99284; 99285; J2310; J2930; J3475

== ENCOUNTER 2023-11-24 23:49 | Emergency (ER) | payer OTHER, SELFPAY ==
--- NOTE | ~2023-11-24 | XR_ITS ---
EXAMINATION: XR CHEST CLINICAL INFORMATION: Dyspnea. COMPARISON: None available. TECHNIQUE: 2 views of the chest were obtained. FINDINGS: No significant abnormality is noted involving the heart, lungs, mediastinum, bony thorax or soft tissues. XR/XR chest 2V IMPRESSION: Unremarkable examination.
[2023-11-25] VITALS (11 sets, daily range): BP systolic 102–153; BP diastolic 73–100; PULSE 84–112; RESP 14–33; TEMP 36.6–37; O2SAT 94–98; BMI 18.3
[2023-11-25 01:06] LABS: Hematocrit 43.1 % (37.0-47.0); Hemoglobin 14.1 g/dl (12.0-16.0); Mean Corpuscular HGB Conc 32.7 g/dl (31.0-35.0); Mean Corpuscular Volume 82.4 fL (80.0-98.0); Mean Platelet Volume 9.2 fL (9.4-12.3); Platelet Count 338 X10*3/uL (160-400); Red Blood Count 5.23 X10*6/uL (4.20-5.50); Red Cell Distribution Width 13.6 % (11.0-16.0); White Blood Count 8.9 X10*3/uL (4.8-10.8)
[2023-11-25 01:28] LABS: Alanine Aminotransferase 29 U/L (0-31); Albumin Level 4.8 g/dL (3.5-5.0); Alkaline Phosphatase 87 U/L (39-117); Anion Gap 13 (12-20); Aspartate Amino Transferase 27 U/L (5-31); Bilirubin Total 0.3 mg/dL (0.0-1.0); Blood Urea Nitrogen 12 mg/dL (9-16); Carbon Dioxide 26 mmol/L (22-29); Chloride 108 mmol/L (96-108); Creatinine Clr Calc Pharmacy 97.2; Estimated Glomerular Filt Rate > 60; Glucose Random 113 mg/dL (60-115); HCG Quantitative < 2 mIU/mL; Potassium 3.9 mmol/L (3.3-5.1); Sodium 143 mmol/L (135-145); Total Protein 8.6 g/dL (6.5-8.0)
[2023-11-25 01:42] LABS: Influenza A PCR NEGATIVE (Negative); Influenza B PCR NEGATIVE (Negative); Resp Syncy Virus RNA Qual PCR NEGATIVE (Negative); SARS COV2 PCR INHOUSE NEGATIVE (Negative)
[2023-11-25 04:59] LABS: Appearance Urine Cloudy; Color Urine Dark Yellow; Glucose Urine UA Negative (Negative); Leukocyte Esterase Urine Small (1+) (Negative); Nitrite Urine Negative (Negative); PH 5.5 (5.0-9.0); Specific Gravity - Urine >= 1.030 (1.005-1.025); UMIC TRIGGER UACC YES; Urine Blood Negative (Negative); Urine Ketones Trace mg/dL (Negative); Urine Protein Trace mg/dL (Neg-Trace)
[2023-11-25 05:06] LABS: Amphetamine Screen Urine Not Detected (Not Detect); Barbiturates, Urine Not Detected (Not Detect); Benzodiazepines Screen Urine Not Detected (Not Detect); Cannabinoid Screen Urine POSITIVE (Not Detect); Cocaine Screen Urine Not Detected (Not Detect); Fentanyl, urine POSITIVE (Not Detect); Opiate Screen Urine POSITIVE (Not Detect); Phencyclidine Screen Urine Not Detected (Not Detect)
[2023-11-25 05:07] LABS: Bacteria Urine 2+ (None Seen); RBC Urine 0-2 /HPF (0-2); UACC Culture Trigger YES; WBC Urine 21-50 /HPF (0-5)
--- NOTE | 2023-11-25 05:21 | MHC.EDTECH ---
This tech took over care of patient at this time, patient was changed into hospital attire,placed on the cardiac catheterization technician vitals taken, Patient is having a hard time breathing,resp.rate is 33 with an O2 Sat of 95% RN,and MD aware.
[2023-11-25] MEDS: 0.9 % Sodium Chloride 1,000 ML 999 ML IVCONT (06:18)
[2023-11-25] MEDS: Prochlorperazine Edisylate 10 MG/2 ML VIAL IVPUSH (06:18)
--- NOTE | 2023-11-25 06:35 | ED.GENADULT ---
HPI - General Adult General Chief complaint: General Medical Stated complaint: Difficulty breathing Time Seen by Provider: 11/25/23 06:33 Source: patient Mode of arrival: ambulatory Limitations: no limitations History of Present Illness HPI narrative: Patient is a 28 year old assigned female at with a history of opiate use disorder and asthma presenting to the emergency department today with opiate withdrawal. Patient states that she has been having opiate withdrawal since yesterday morning and for the last week has had a cough. Patient denies any dizziness, lightheadedness, abdominal pain, nausea, vomiting, fever, chills, blurry vision, double vision, loss of vision, chest pain, difficulty breathing, shortness of breath, back pain, night sweats, pain with urination, increased urinary frequency, increased urinary urgency, blood in her urine or stool, syncope or a near syncopal episode, recent trauma or falls, bowel incontinence, bladder incontinence, bowel retention, bladder retention, or any other complaints at this time. Relieving factors: none Exacerbating factors: none Treatments prior to arrival: none Related Data Home Medications Medication Instructions Recorded Confirmed clonidine HCl 0.1 mg tablet 0.1 mg PO TID PRN ANXIETY 02/18/23 10/26/23 albuterol sulfate 90 mcg/actuation 2 puff inhalation Q6H PRN wheezing 06/12/23 10/26/23 aerosol inhaler (Ventolin HFA) clonazepam 2 mg tablet 2 mg PO BID Anxiety 06/12/23 10/26/23 fluticasone 500 mcg-salmeterol 50 1 ea inhalation BID PRN Shortness 06/12/23 10/26/23 mcg/dose blistr powdr for Of Breath Or Wheezing inhalation (Advair Diskus) ipratropium 0.5 mg-albuterol 3 mg 3 ml inhalation QID PRN WHEEZING 06/12/23 10/26/23 (2.5 mg base)/3 mL nebulization soln gabapentin 600 mg tablet 600 mg PO BEDTIME 06/21/23 10/26/23 clonazepam 2 mg tablet 2 mg PO DAILY PRN Anxiety 10/26/23 10/26/23 fluticasone propionate 50 1 spray intranasal Q12H PRN 10/26/23 10/26/23 mcg/actuation nasal Allergy Symptoms spray,suspension fluvoxamine 100 mg tablet 100 mg PO BEDTIME 10/26/23 10/26/23 methadone 10 mg/mL oral concentrate 20 mg PO QPM 10/26/23 10/26/23 methadone 10 mg/mL oral concentrate 60 mg PO QAM 10/26/23 10/26/23 promethazine 12.5 mg tablet 12.5 mg PO BID nausea 10/26/23 10/26/23 Previous Rx's Medication Instructions Recorded ipratropium 0.5 mg-albuterol 3 mg 3 ml inhalation RQ4H WHILE AWAKE 10/27/23 (2.5 mg base)/3 mL nebulization #180 mL soln prednisone 20 mg tablet 20 mg PO DAILY #7 tabs 10/27/23 albuterol sulfate 2.5 mg/3 mL 2.5 mg (3 mL) inhalation Q6H #75 mL 10/31/23 (0.083 %) solution for nebulization albuterol sulfate 90 mcg/actuation 2 inh inhalation Q4-6H PRN 10/31/23 breath activated powder inhaler shortness of breath or wheezing #1 ea azithromycin 250 mg tablet See Rx Instructions PO .COMPLEX #6 10/31/23 tabs prednisone 50 mg tablet 50 mg PO DAILY 5 days #5 tabs 10/31/23 cefuroxime axetil 250 mg tablet 250 mg PO BID 7 days #14 tabs 11/25/23 Allergies Allergy/AdvReac Type Severity Reaction Status Date / Time latex [LATEX] Allergy Intermediate RASH Verified 11/25/23 00:45 ondansetron [From Zofran] Allergy Intermediate Shortness Verified 11/25/23 00:45 of Breath propranolol Allergy Intermediate Shortness Verified 11/25/23 00:45 of Breath adhesive tape [ADHESIVE TAPE] AdvReac Intermediate RASH Verified 11/25/23 00:45 Review of Systems Constitutional: Constitutional: Reports no additional constitutional complaints, Denies chills, Denies fever(s) and Denies night sweats Eyes: Eyes: Reports no additional eye complaints, Denies blurry vision, Denies change in vision, Denies diplopia, Denies eye discharge, Denies loss of vision and Denies eye pain ENT: Denies dizziness Cardiovascular: Cardiovascular: Reports no additional cardiovascular complaints, Denies chest pain, Denies lightheadedness, Denies Loss of Consciousness and Denies dyspnea Respiratory: Respiratory: Reports no additional respiratory complaints, Reports cough and Denies dyspnea Gastrointestinal: Gastrointestinal: Reports no additional gastrointestinal complaints, Denies abdominal pain, Denies melena, Denies hematochezia, Denies change in bowel habits and Denies change in stool character Genitourinary: Genitourinary: Denies hematuria, Denies urinary frequency, Denies dysuria, Denies urinary incontinence, Denies urinary hesitancy and Denies urinary urgency Musculoskeletal: Musculoskeletal: Reports no additional musculoskeletal complaints, Denies numbness and Denies tingling Neurologic: Denies dizziness, Denies loss of vision, Denies numbness and Denies tingling Psychiatric: Psychiatric: Reports no additional psychiatric complaints Endocrine: Endocrine: Reports no additional endocrine complaints Hematologic/Lymphatic: Hematologic/Lymphatic: Reports no additional hematologic/lymphatic complaints Allergic/Immunologic: Allergic/Immunologic: Reports no additional allergic/immunologic complaints PMFSH Past Medical History Attestation statement: The following information was validated with the patient. Source: old records reviewed and nursing notes reviewed Medical History Mood disorder Polysubstance abuse Pneumonitis Asthma Asthma Pneumonia due to COVID-19 virus COVID-19 Bipolar disorder PTSD (post-traumatic stress disorder) Depression Anxiety Asthma GERD (gastroesophageal reflux disease) Crohn's disease Opioid use disorder Family History Family History Father Colon cancer Mother No problems noted. Brother Autism Sister Bipolar disorder Maternal Aunt Breast cancer Social History Social History Household Members: None Housing: Apartment Housing Other:: motel Do you presently have visiting nurse or other home services: No Alcohol intake: never Patient Tobacco Use Status: Former Tobacco user Cigarette Packs Per Day: 0.33 Cigarettes Per Day: 6.6 Years Smoked: 9 Smoked in Last 30 Days: No e-Cigarette/Vaping Use: Former Use Second Hand Smoke Exposure: Yes Use of substances other than those prescribed or required for medical reasons: Yes Substance Use Type: Heroin Substance Use Frequency: Daily Last Used Substance: Hours (ago) Any prior treatment program specific to substance use: No Advance Directives: Yes Advance Directives on File: Yes Advance Directives Date on File: 05/07/21 service: No Current occupational status: unemployed Cognitive needs: No Hearing needs: No Vision needs: No Physical Exam ED Vital Signs: Vital Signs - 24 hr 11/25/23 00:46 11/25/23 04:44 11/25/23 05:04 Temperature 98.1 F 98.3 F 98.6 F Pulse Rate 88 111 H 105 H Respiratory Rate 22 H 22 H 21 H Blood Pressure 152/89 H 102/80 149/82 H Pulse Oximetry 96 96 97 Oxygen Delivery Method Room Air Room Air Room Air 11/25/23 05:12 11/25/23 05:20 11/25/23 06:51 Temperature 98.5 F Pulse Rate 90 104 H 84 Respiratory Rate 33 H 18 Blood Pressure 146/92 H Pulse Oximetry 95 Oxygen Delivery Method Room Air 11/25/23 07:55 11/25/23 10:34 11/25/23 13:26 Temperature Pulse Rate 98 112 H 100 Respiratory Rate 18 14 16 Blood Pressure 129/73 153/100 H Pulse Oximetry 94 98 96 Oxygen Delivery Method Room Air Room Air BMI result Body Mass Index 18.3 Const General: cooperative, no acute distress, alert and awake Nutritional Appearance: well nourished Orientation/consciousness: patient oriented x3 Limitations: no limitations HENMT Head: Yes normal to inspection and Yes atraumatic Ears: hearing grossly normal bilaterally and external ears normal General nose exam: Normal external nose present, no nasal discharge noted and no epistaxis Face and sinus: Yes normal facial exam, No abrasion and No laceration Mouth: Normal oral and palatal mucosa present, no drooling and no muffled voice Eyes General: appearance normal, both eyes and all related structures Periorbital: periorbital findings normal Eyelids: Yes eyelids normal Conjunctivae: conjunctivae normal Pupils: Equal, round and reactive pupils present EOM: EOMs intact bilaterally Neck Neck: Yes normal visual inspection, Yes full ROM and Yes no lymphadenopathy Chest Chest palpation & inspection: normal inspection of the chest Resp Effort & Inspection: normal respiratory effort and able to speak in complete sentences Auscultation: wheezes scattered wheezes Cardio Rate: regular rate Rhythm: regular rhythm GI Inspection: Yes normal to inspection Neuro General: patient oriented x3 and moves all extremities Cranial nerves: Yes Equal, round and reactive pupils present Cognition (Neuro): normal cognition Motor exam (neuro): 5/5 motor strength present throughout Sensory Exam: Normal double simultaneous stimulation for sensation Coordination: [id number] test normal Extrem General: Yes normal to inspection, Yes full ROM and Yes capillary refill normal Psych Appearance: grossly normal Mental Status: mental status grossly normal Affect: normal affect Attitude: cooperative Thought process: Normal thought process present Thought content: Normal thought content present Insight: Good insight present (Psych) Medications Administered Discontinued Medications Generic Name Dose Route Start Last Admin Trade Name Tomiq PRN Reason Stop Dose Admin Albuterol/Ipratropium 3 ml 11/25/23 06:50 11/25/23 06:51 Albuterol/Iprat 2.5/0.5mg 3 Ml Ampul.Neb INHALE 11/25/23 06:51 3 ml ONCE ONE Administration Diphenhydramine HCl 25 mg 11/25/23 07:09 11/25/23 07:23 Diphenhydramine Hcl 50 Mg/Ml Vial IVPUSH 11/25/23 07:10 25 mg ONCE ONE Administration Droperidol 1.25 mg 11/25/23 07:09 11/25/23 07:23 Droperidol 5 Mg/2 Ml Vial IVPUSH 11/25/23 07:10 1.25 mg ONCE ONE Administration Sodium Chloride 1,000 mls @ 999 mls/hr 11/25/23 06:11 11/25/23 09:06 Ns IVCONT 11/25/23 07:11 Infused .Q1H1M ONE Infusion Lorazepam 2 mg 11/25/23 06:40 11/25/23 06:43 Lorazepam 2 Mg/Ml Vial IVPUSH 11/25/23 06:41 2 mg ONCE ONE Administration Lorazepam 2 mg 11/25/23 10:23 11/25/23 10:31 Lorazepam 2 Mg/Ml Vial IVPUSH 11/25/23 10:24 2 mg ONCE ONE Administration Methadone HCl 40 mg 11/25/23 10:36 11/25/23 11:13 Methadone Hcl 20 Mg/2 Ml Oral.Conc PO 11/25/23 10:37 40 mg ONCE ONE Administration Methylprednisolone Sodium Succinate 60 mg 11/25/23 06:40 11/25/23 06:44 Methylprednisolone Sod Succ 125 Mg/2 Ml Vial IVPUSH 11/25/23 06:41 60 mg ONCE ONE Administration Naloxone HCl 8 mg 11/25/23 10:59 11/25/23 13:42 Naloxone Hcl Nasal Take Home 4 Mg [place] NOSTRILALT 11/25/23 11:00 8 mg ONCE ONE Administration Prochlorperazine Edisylate 10 mg 11/25/23 06:12 11/25/23 06:18 Prochlorperazine Edisylate 10 Mg/2 Ml Vial IVPUSH 11/25/23 06:13 10 mg ONCE ONE Administration Medical Decision Making Medical Decision Making [facility] Narrative: Patient is a 28 year old assigned female at with a history of opiate use disorder and asthma presenting to the emergency department today with a cough and opiate withdrawal. Patient's physical exam was as noted in the physical exam portion of this note. Patient was uncomfortable in obvious withdrawal. Patient's blood work was unremarkable. Patient's urine showed a possible UTI - will treat. Patient's EKG was unremarkable. Patient's chest x-ray showed no acute process. The addiction team saw the patient and attempted to get her placed into detox however, there are no available beds. Restarted the patient on 40mg of Methadone and gave the patient multiple medications to assist her withdrawal symptoms. I explained my physical exam findings as well as all test results to the patient. I answered all questions asked by the patient. I stressed the importance of the patient taking her medication as prescribed. I stressed the importance of the patient following up with her primary care provider. I stressed the importance of the patient returning to the emergency department immediately if her symptoms were to worsen or if she were to develop any dizziness, shortness of breath, difficulty breathing, chest pain, blurry vision, loss of vision, nausea, vomiting, abdominal pain, fever, chills, back pain, or any other complaints. Patient verbalized agreement and understanding with this treatment plan and discharge. Differential Diagnosis Differential Diagnoses: The differential diagnosis associated with the presentation includes Asthma exacerbation UTI Opiate withdrawal Admission/Observation Consideration of admission/observation: Escalation of care including admission/observation considered Patient would have been admitted to the hospital had her work up had any findings where hospital admission was appropriate and her clinical presentation warranted hospital admission. Lab Data [facility] Lab Attestation statement: I reviewed the patient's lab results. My interpretation of these results are in the [facility] Rationale portion of this note. 11/25/23 01:00 11/25/23 01:00 Labs: Lab Results 11/25/23 11/25/23 Range/Units 01:00 04:54 WBC 8.9 (4.8-10.8) X10*3/uL RBC 5.23 (4.20-5.50) X10*6/uL Hgb 14.1 (12.0-16.0) g/dl Hct 43.1 (37.0-47.0) % MCV 82.4 (80.0-98.0) fL MCH 27.0 (27.0-33.0) pg MCHC 32.7 (31.0-35.0) g/dl RDW 13.6 (11.0-16.0) % Plt Count 338 (160-400) X10*3/uL MPV 9.2 L (9.4-12.3) fL Absolute Nucleated RBC 0.000 (0.0-0.012) X10*3/uL Nucleated RBC % (auto) 0.0 (0.0-0.2) /100WBC Sodium 143 (135-145) mmol/L Potassium 3.9 (3.3-5.1) mmol/L Chloride 108 (96-108) mmol/L Carbon Dioxide 26 (22-29) mmol/L Anion Gap 13 (12-20) BUN 12 (9-16) mg/dL Creatinine 0.69 (0.5-1.4) mg/dL Estim Creat Clear Calc 97.2 Estimated GFR > 60 Random Glucose 113 (60-115) mg/dL Calcium 10.0 D (8.4-10.2) mg/dL Total Bilirubin 0.3 (0.0-1.0) mg/dL AST 27 (5-31) U/L ALT 29 (0-31) U/L Alkaline Phosphatase 87 (39-117) U/L Total Protein 8.6 H (6.5-8.0) g/dL Albumin 4.8 (3.5-5.0) g/dL Beta HCG, Quant < 2 mIU/mL Urine Color Dark Yellow Urine Appearance Cloudy Urine pH 5.5 (5.0-9.0) Ur Specific [place] >= 1.030 H (1.005-1.025) Urine Protein Trace (Neg-Trace) mg/dL Urine Glucose (UA) Negative (Negative) mg/dL Urine Ketones Trace (Negative) mg/dL Urine Blood Negative (Negative) Urine Nitrite Negative (Negative) Ur Leukocyte Esterase Small (1+) H (Negative) Urine RBC 0-2 (0-2) /HPF Urine WBC 21-50 H (0-5) /HPF Ur Squamous Epith Cells 11-20 (0-2) /HPF Urine Bacteria 2+ (None Seen) Hyaline Casts 6-10 (0-2) /LPF Urine Opiates Screen POSITIVE H (Not Detect) Urine Fentanyl Screen POSITIVE H (Not Detect) Ur Barbiturates Screen Not Detected (Not Detect) Ur Phencyclidine Scrn Not Detected (Not Detect) Ur Amphetamines Screen Not Detected (Not Detect) U Benzodiazepines Scrn Not Detected (Not Detect) Urine Cocaine Screen Not Detected (Not Detect) U Marijuana (THC) Screen POSITIVE H (Not Detect) Influenza Type A (PCR) NEGATIVE (Negative) Influenza Type B (PCR) NEGATIVE (Negative) RSV RNA Qual (PCR) NEGATIVE (Negative) SARS-CoV-2 RNA (RT-PCR) NEGATIVE (Negative) Independent Interpretation I performed an independent interpretation of an: EKG and Plain X-Ray Interpretation: My interpretation is in agreement with the radiologist's impression of this imaging study. EXAMINATION: XR CHEST CLINICAL INFORMATION: Dyspnea. COMPARISON: None available. TECHNIQUE: 2 views of the chest were obtained. FINDINGS: No significant abnormality is noted involving the heart, lungs, mediastinum, bony thorax or soft tissues. XR/XR chest 2V IMPRESSION: Unremarkable examination. Dictated By: Barry Ramsey Signed By: Electronically signed by Barry Ramsey 11/25/23 0111 Vent. Rate: 082 BPM Atrial Rate: 082 BPM P-R Int: 162 ms QRS Dur: 086 ms QT Int: 380 ms P-R-T Axes: 074 058 082 degrees QTc Int: 443 ms Normal sinus rhythm with sinus arrhythmia Normal ECG When compared with ECG of 20-JUN-2023 21:45, Criteria for Septal infarct are no longer Present DD/ [id number] Radiology Impression Discussion of test interpretation with radiology: I have reviewed the radiologist's reading. Prescription Management I considered prescription management with: Antibiotic (patient prescribed an antibiotic for UTI) Critical Care Time Critical Care Time Critical Care Time: Yes Total Critical Care Time: 78 Attestation: I spent 78 minutes of Critical Care Time with this patient. This does not include time spent on separately reported billable procedures. Discharge Plan Discharge Clinical Impression: Opioid use disorder, Urinary tract infection Patient Disposition: Home, Self-Care Instructions: Urinary Tract Infection in Women (DC), Opioid Use Disorder (ED) Additional Instructions: Follow up with your primary care provider. Return to the emergency department immediately if your symptoms worsen or if you develop any dizziness, shortness of breath, difficulty breathing, chest pain, blurry vision, loss of vision, nausea, vomiting, abdominal pain, fever, chills, back pain, or any other complaints. Prescriptions: New cefuroxime axetil 250 mg tablet 250 mg PO BID 7 Days Qty: 14 0RF No Action clonidine HCl 0.1 mg tablet 0.1 mg PO TID PRN (Reason: ANXIETY ) fluticasone propion-salmeterol [Advair Diskus] 500-50 mcg/dose blister with device 1 ea INHALATION BID PRN (Reason: Shortness Of Breath Or Wheezing) albuterol sulfate [Ventolin HFA] 90 mcg/actuation HFA aerosol inhaler 2 puff inhalation Q6H PRN (Reason: wheezing) clonazepam 2 mg Tablet 2 mg PO BID ipratropium-albuterol 0.5 mg-3 mg(2.5 mg base)/3 mL solution for nebulization 3 ml inhalation QID PRN (Reason: WHEEZING ) gabapentin 600 mg tablet 600 mg PO BEDTIME promethazine 12.5 mg tablet 12.5 mg PO BID fluvoxamine 100 mg tablet 100 mg PO BEDTIME clonazepam 2 mg tablet 2 mg PO DAILY PRN (Reason: Anxiety) methadone 10 mg/mL Concentrate 60 mg PO QAM methadone 10 mg/mL Concentrate 20 mg PO QPM fluticasone propionate 50 mcg/actuation spray,suspension 1 spray intranasal Q12H PRN (Reason: Allergy Symptoms) Rx Instructions: administer into each nostril ipratropium-albuterol 0.5 mg-3 mg(2.5 mg base)/3 mL Solution For Nebulization 3 ml inhalation RQ4H WHILE AWAKE Qty: 180 0RF Rx Instructions: Use DuoNeb updraft every 4 hours while awake x2 days then as needed prednisone 20 mg tablet 20 mg PO DAILY Qty: 7 0RF Rx Instructions: Take with food albuterol sulfate 2.5 mg /3 mL (0.083 %) solution for nebulization 2.5 mg inhalation Q6H Qty: 75 0RF albuterol sulfate 90 mcg/actuation aerosol powdr breath activated 2 inh inhalation Q4-6H PRN (Reason: shortness of breath or wheezing) Qty: 1 0RF azithromycin 250 mg tablet See Rx Instructions .ROUTE .COMPLEX Qty: 6 0RF Rx Instructions: For 250 mg dose pack: take 500 mg today (day 1), then 250 mg for 4 days (days 2-5) prednisone 50 mg tablet 50 mg PO DAILY 5 Days Qty: 5 0RF Referrals: Vincent Hayes, LOSS PREVENTION REPRESENTATIVE-[facility] [Primary Care Provider] -
--- NOTE | 2023-11-25 06:40 | ECG_ITS ---
Test Reason : ASTHMA Blood Pressure : / mmHG Vent. Rate : 082 BPM Atrial Rate : 082 BPM P-R Int : 162 ms QRS Dur : 086 ms QT Int : 380 ms P-R-T Axes : 074 058 082 degrees QTc Int : 443 ms Normal sinus rhythm with sinus arrhythmia Normal ECG When compared with ECG of 20-JUN-2023 21:45, Criteria for Septal infarct are no longer Present Referred By: Connie Grewal Electronically Signed By:SLICK YEE MD
[2023-11-25] MEDS: LORazepam 2 MG/ML VIAL IVPUSH ×2 (06:43→10:31)
[2023-11-25] MEDS: methylPREDNISolone Sod Succ 125 MG/2 ML VIAL 60 MG IVPUSH (06:44)
--- NOTE | 2023-11-25 06:50 | MHC.EDTECH ---
Ekg taken per order and signed by provider.
[2023-11-25] MEDS: Albuterol/Iprat 2.5/0.5MG 3 ML AMPUL.NEB INHALE (06:51)
[2023-11-25] MEDS: diphenhydrAMINE HCL 50 MG/ML VIAL 25 MG IVPUSH (07:23)
[2023-11-25] MEDS: droPERidol 5 MG/2 ML VIAL 1.25 MG IVPUSH (07:23)
--- NOTE | 2023-11-25 09:38 | MHC.RECOVRN ---
Met with pt in ED3 after pt medically cleared and expressed interest in ATS. Pt had presented to the ED reporting increased SOB and requesting ATS. Pt laying in bed, asleep, does not wake to voice, wakes to touch. Pt has difficulty staying awake for conversation. Pt reports using heroin/fentanyl, a lot, unable to quantify how much. Pt denies other substances. Pt had been on methadone, unable to tell me when last dose was, states I couldn't get there anymore. Pt is interested in ATS, however, only local placement. Referral sent to [facility].
--- NOTE | 2023-11-25 10:56 | MHC.RECOVRN ---
Met with pt to follow up after pt awoke and was exhibiting withdrawal symptoms. Per RN, pt scoring 25 on COWS. Pt laying in bed, extremely restless, diaphoretic, reporting body aches, upset stomach, goosebumps. Pt would like to restart methadone and return to [facility]. Pt reports she was on a split dose, unable to tell me what her dose was. [facility] does not have bed availability today. Discussed with provider, plan to administer methadone and pt to follow up with [facility] tomorrow morning.
[2023-11-25] MEDS: methADONE HCl 20 MG/2 ML ORAL.CONC 40 MG PO (11:13)
--- NOTE | 2023-11-25 11:30 | PC.NURSE ---
Assumed care of the patient at 1100, patient drowsy but easily arousable. PO methadone given per order.
[2023-11-25] MEDS: Naloxone HCl Nasal TAKE HOME 4 MG SPRAY 8 MG NOSTRILALT (13:42)
== END 2023-11-25 14:03 | disposition home or self-care (01) ==
PROVIDERS: Emergency Provider Emergency Medicine; PCP Nurse Practitioner Family
DX: F11.23 Opioid dependence with withdrawal (principal); N39.0 Urinary tract infection, site not specified; J45.909 Unspecified asthma, uncomplicated
CPT/HCPCS: 0241U; 71046; 80053; 80307; 81001; 84702; 85027; 87086; 93005; 94640; 96361; 96374; 96375; 96376; 99285; J0737; J1200; J1790; J2060; J2919; J2930

== ENCOUNTER → 2023-11-25 06:40 | Outpatient (BNV) | payer OTHER, SELFPAY | PROVIDERS: Emergency Provider Emergency Medicine; PCP Nurse Practitioner Family; Visit Provider Internal Medicine Cardiovascular Disease | DX: J45.909 Unspecified asthma, uncomplicated (principal) | CPT/HCPCS: 93010 ==

== ENCOUNTER 2024-04-10 13:35 | Emergency (ER) | payer MEDICAID, SELFPAY ==
--- NOTE | ~2024-04-10 | XR_ITS ---
EXAMINATION: XR chest 1V CLINICAL INFORMATION: Cough COMPARISON: Prior chest x-ray from second 2023 TECHNIQUE: Single portable frontal view. Tubes and lines: None Lungs and pleura: Both lungs are clear. Heart and mediastinum: The mediastinum is within normal limits.. Bones/soft tissue: Skeletal structures included are normal for patient's age. XR/XR chest 1V IMPRESSION: No radiographic evidence of acute cardiopulmonary disease.
[2024-04-10 13:42] VITALS: BP 128/78; PULSE 77; RESP 16; TEMP 36.6; O2SAT 96; BMI 22.6
[2024-04-10] MEDS: methylPREDNISolone Sod Succ 125 MG/2 ML VIAL 60 MG IVPUSH (13:56)
[2024-04-10] MEDS: Magnesium Sulfate/H2O 2 GM/50 ML PIGGYBACK IV (13:56)
[2024-04-10] MEDS: 0.9 % Sodium Chloride 1,000 ML 999 ML IV (13:57)
--- NOTE | 2024-04-10 13:58 | ED.ASTHMA ---
HPI - Asthma General Chief Complaint: Dyspnea Stated Complaint: diff breathing hx of lung disease Time Seen by Provider: 04/10/24 13:40 Source: patient Mode of arrival: ambulatory Limitations: no limitations History of Present Illness ED Provider: TAI HPI Narrative: 28 yo female with PMH of asthma, pneumonitis, opioid use disorder, PTSD, states she has been off any opiates including MAT for 5 months or so now just on promethazine and klonopin. She reports she has been sick for 1 week with cough, sputum production, weakness, wheezing. Has not been on prednisone for 1 month. She states she feels like she caught something. She then trails off and starts talking about breaking up with her boyfriend and him stating they need to go the hospital for testing since they broke up for a month. She states she is fine but he has symptoms. I offered to test her for G+C but she doesn't report to us what symptoms he has. She does look sedated on arrival and under the influence of substance. MD complaint: asthma attack , shortness of breath and wheezing Onset (ago): week(s) (1) Severity: moderate Context: recent URI Associated symptoms: productive cough Asthma History: childhood onset Treatments Prior to Arrival: inhaled bronchodilator Related Data Home Medications ?Medication ?Instructions ?Recorded ?Confirmed clonidine HCl 0.1 mg tablet 0.1 mg PO TID PRN ANXIETY 02/18/23 10/26/23 albuterol sulfate 90 mcg/actuation 2 puff inhalation Q6H PRN wheezing 06/12/23 10/26/23 aerosol inhaler (Ventolin HFA) clonazepam 2 mg tablet 2 mg PO BID Anxiety 06/12/23 10/26/23 fluticasone 500 mcg-salmeterol 50 1 ea inhalation BID PRN Shortness 06/12/23 10/26/23 mcg/dose blistr powdr for Of Breath Or Wheezing inhalation (Advair Diskus) ipratropium 0.5 mg-albuterol 3 mg 3 ml inhalation QID PRN WHEEZING 06/12/23 10/26/23 (2.5 mg base)/3 mL nebulization soln gabapentin 600 mg tablet 600 mg PO BEDTIME 06/21/23 10/26/23 clonazepam 2 mg tablet 2 mg PO DAILY PRN Anxiety 10/26/23 10/26/23 fluticasone propionate 50 1 spray intranasal Q12H PRN 10/26/23 10/26/23 mcg/actuation nasal Allergy Symptoms spray,suspension fluvoxamine 100 mg tablet 100 mg PO BEDTIME 10/26/23 10/26/23 methadone 10 mg/mL oral concentrate 20 mg PO QPM 10/26/23 10/26/23 methadone 10 mg/mL oral concentrate 60 mg PO QAM 10/26/23 10/26/23 promethazine 12.5 mg tablet 12.5 mg PO BID nausea 10/26/23 10/26/23 Previous Rx's ?Medication ?Instructions ?Recorded ipratropium 0.5 mg-albuterol 3 mg 3 ml inhalation RQ4H WHILE AWAKE 10/27/23 (2.5 mg base)/3 mL nebulization #180 mL soln prednisone 20 mg tablet 20 mg PO DAILY #7 tabs 10/27/23 albuterol sulfate 2.5 mg/3 mL 2.5 mg (3 mL) inhalation Q6H #75 mL 10/31/23 (0.083 %) solution for nebulization albuterol sulfate 90 mcg/actuation 2 inh inhalation Q4-6H PRN 10/31/23 breath activated powder inhaler shortness of breath or wheezing #1 ea azithromycin 250 mg tablet See Rx Instructions PO .COMPLEX #6 10/31/23 tabs prednisone 50 mg tablet 50 mg PO DAILY 5 days #5 tabs 10/31/23 cefuroxime axetil 250 mg tablet 250 mg PO BID 7 days #14 tabs 11/25/23 amoxicillin 875 mg-potassium 1 tab PO BID #14 tabs 04/10/24 clavulanate 125 mg tablet prednisone 10 mg tablet 10 mg PO DIRECTED #41 tabs 04/10/24 promethazine 25 mg tablet 25 mg PO TID PRN nausea and 04/10/24 vomiting #20 tabs Allergies Allergy/AdvReac Type Severity Reaction Status Date / Time latex [LATEX] Allergy Intermediate RASH Verified 11/25/23 00:45 ondansetron [From Zofran] Allergy Intermediate Shortness Verified 11/25/23 00:45 of Breath propranolol Allergy Intermediate Shortness Verified 11/25/23 00:45 of Breath acetaminophen Allergy Difficulty Verified 04/10/24 13:46 Breathing adhesive tape [ADHESIVE TAPE] AdvReac Intermediate RASH Verified 11/25/23 00:45 Review of Systems Review of Systems: Constitutional : No Fever, No Chills ENT/Mouth : No Hoarseness, No sore throat, No Rhinorrhea Eyes: No Redness, No Discharge, No Vision Changes Cardiovascular : No Chest Pain, positive SOB, positive Dyspnea on Exertion, No Edema Respiratory : positive Cough, pos Sputum, positive Wheezing, Gastrointestinal : No Nausea, No Vomiting, No Diarrhea, No abdominal Pain Genitourinary : No Dysuria, No Hematuria Musculoskeletal : No joint pain, No Myalgias Skin : No rash Neuro : No Weakness, No Numbness, No Headache Psych : No anxiety, depression All other systems reviewed and are negative PMFSH Past Medical History Attestation statement: The following information was validated with the patient. Source: old records reviewed Medical History Mood disorder Polysubstance abuse Pneumonitis Asthma Asthma Pneumonia due to COVID-19 virus COVID-19 Bipolar disorder PTSD (post-traumatic stress disorder) Depression Anxiety Asthma GERD (gastroesophageal reflux disease) Crohn's disease Opioid use disorder Family History Family History Father Colon cancer Mother No problems noted. Brother Autism Sister Bipolar disorder Maternal Aunt Breast cancer Social History Social History Household Members: None Housing: Apartment Housing Other:: motel Do you presently have visiting nurse or other home services: No Alcohol intake: never Patient Tobacco Use Status: Former Tobacco user Cigarette Packs Per Day: 0.33 Cigarettes Per Day: 6.6 Years Smoked: 9 Smoked in Last 30 Days: Yes e-Cigarette/Vaping Use: Former Use Second Hand Smoke Exposure: Yes Substance Use Type: Heroin Advance Directives: Yes Advance Directives on File: Yes Advance Directives Date on File: 05/07/21 Do you have a plan to hurt others: No Plan service: No Current occupational status: unemployed Cognitive needs: No Hearing needs: No Vision needs: No Physical Exam Vital Signs: Vital Signs: Last Vital Signs Temp 98 F 04/10/24 13:42 Pulse 96 04/10/24 14:51 Resp 22 H 04/10/24 14:51 BP 128/78 04/10/24 13:42 Pulse Ox 96 04/10/24 13:42 O2 Del Method Room Air 04/10/24 13:42 BMI result Body Mass Index 22.6 Appearance: appears sedated but she is alert. Oriented X3. No acute distress. Eyes: Pupils equal, round and reactive to light. ENT: Pharynx normal. Neck: Normal inspection. Neck supple. CVS: Normal heart rate and rhythm. Pulses normal. Respiratory: No respiratory distress. Breath sounds diffuse exp and insp wheezes throughout Abdomen: Soft and nontender. Skin: Skin warm and dry. Normal skin color. Normal skin turgor. Extremities: No lower extremity edema. No calf ttp Neuro: Oriented X 3. No motor deficit. No sensory deficit. Medications Administered Generic Name Dose Route Start Last Admin Trade Name Freq PRN Reason Stop Dose Admin Magnesium Sulfate 2 gm in 50 mls @ 25 mls/hr 04/10/24 13:46 04/10/24 14:38 Magnesium Sulfate/H2o IV 04/10/24 15:45 Infused ONCE ONE Infusion Discontinued Medications Generic Name Dose Route Start Last Admin Trade Name Freq PRN Reason Stop Dose Admin Clonazepam 2 mg 04/10/24 14:49 04/10/24 14:57 Clonazepam 1 Mg Tablet PO 04/10/24 14:50 2 mg ONCE ONE Administration Albuterol Sulfate 5 mg/ 0 mg 04/10/24 14:00 04/10/24 14:07 Albuterol/Ipratropium 3 ml INHALE 04/10/24 14:01 1 each ONCE ONE Administration Sodium Chloride 1,000 mls @ 999 mls/hr 04/10/24 13:46 04/10/24 14:58 Ns IV 04/10/24 14:46 Infused .Q1H1M ONE Infusion Levalbuterol HCl 3.75 mg 04/10/24 14:50 04/10/24 14:56 Levalbuterol Hcl 1.25 Mg/3 Ml Vial.Neb INHALE 04/10/24 14:51 3.75 mg ONCE ONE Administration Methylprednisolone Sodium Succinate 60 mg 04/10/24 13:46 04/10/24 13:56 Methylprednisolone Sod Succ 125 Mg/2 Ml Vial IVPUSH 04/10/24 13:47 60 mg ONCE ONE Administration Medical Decision Making Medical Decision Making MDM Narrative: 28 yo female with PMH of asthma, pneumonitis, opioid use disorder, PTSD here with c/o asthma, cough, URI and wheezing hx of same in past she is asking for klonopin and promethazine on arrival though I suspect she might have just taken some. She is also concerned for possible STI exposure offered urine testing. At this time IV steroids, IV magnesium, neb, CXR, viral swab, dispo per response to ED therapies. Differential Diagnosis Differential Diagnoses: The differential diagnosis associated with the presentation includes asthma, viral syndrome, bronchitis Admission/Observation Consideration of admission/observation: Escalation of care including admission/observation considered offered admission she is refusing to stay stable for DC she states she lives close by she is asking for phenergan Rx states she ran out Rx for augmentin, prednisone taper, promethazine has not provided urine Lab Data MDM Lab Attestation statement: I reviewed the patient's lab results. 04/10/24 13:52 04/10/24 14:08 Labs: Lab Results 04/10/24 04/10/24 04/10/24 Range/Units 13:52 13:57 14:08 WBC 4.1 L (4.8-10.8) X10*3/uL RBC 3.72 L D (4.20-5.50) X10*6/uL Hgb 11.1 L D (12.0-16.0) g/dl Hct 32.8 L D (37.0-47.0) % MCV 88.2 (80.0-98.0) fL MCH 29.8 (27.0-33.0) pg MCHC 33.8 (31.0-35.0) g/dl RDW 13.8 (11.0-16.0) % Plt Count 205 D (160-400) X10*3/uL MPV 10.2 (9.4-12.3) fL Immature Gran % (Auto) 0.0 (0.0-0.4) % Neut % (Auto) 38.1 L (45-73) % Lymph % (Auto) 42.7 H (20-40) % [place] % (Auto) 9.9 (2-11) % Eos % (Auto) 9.1 H (0-4) % Baso % (Auto) 0.2 (0-2) % Lymph # (Auto) 1.7 (1.2-4.9) X10*3/uL [place] # (Auto) 0.4 (0.1-1.2) X10*3/uL Eos # (Auto) 0.4 (0.0-0.4) X10*3/uL Baso # (Auto) 0.0 (0.0-0.2) X10*3/uL Abs Immat Gran (auto) 0.00 (0.00-0.03) X10*3/uL Absolute Neuts (auto) 1.5 L (2.0-8.3) x10*3/uL Absolute Nucleated RBC 0.000 (0.0-0.012) X10*3/uL Nucleated RBC % (auto) 0.0 (0.0-0.2) /100WBC Smear Tech's Comments VERIFIED Sodium 142 (135-145) mmol/L Potassium 3.8 (3.3-5.1) mmol/L Chloride 107 (96-108) mmol/L Carbon Dioxide 27 (22-29) mmol/L Anion Gap 12 (12-20) BUN 8 L (9-16) mg/dL Creatinine 0.58 (0.5-1.4) mg/dL Estim Creat Clear Calc 132.3 Estimated GFR > 60 Random Glucose 87 (60-115) mg/dL Calcium 8.7 D (8.4-10.2) mg/dL Beta HCG, Quant < 2 mIU/mL Influenza Type A (PCR) NEGATIVE (Negative) Influenza Type B (PCR) NEGATIVE (Negative) RSV RNA Qual (PCR) NEGATIVE (Negative) SARS-CoV-2 RNA (RT-PCR) NEGATIVE (Negative) Independent Interpretation I performed an independent interpretation of an: Plain X-Ray (no pneumonia) Radiology Impression Discussion of test interpretation with radiology: I have reviewed the radiologist's reading. External Record Review External record reviewed: Inpatient record Prescription Management I considered prescription management with: Antibiotic and Other Critical Care Time Critical Care Time Critical Care Time: Yes Total Critical Care Time: 45 Attestation: hour long neb, IV magnesium, repeat nebs, offered admission she refuses I attest to this time spent taking care of the patient Discharge Plan Discharge Clinical Impression: Asthma with exacerbation Qualifiers: Asthma severity: severe Asthma persistence: persistent Qualified Code(s): J45.51 - Severe persistent asthma with (acute) exacerbation Patient Disposition: Home, Self-Care Instructions: Asthma (ED) Additional Instructions: you were offered admission but you refused, you can return at any time take medications as prescribed you can return at any time Prescriptions: New amoxicillin-pot clavulanate 875-125 mg tablet 1 tab PO BID Qty: 14 0RF promethazine 25 mg tablet 25 mg PO TID PRN (Reason: nausea and vomiting) Qty: 20 0RF prednisone 10 mg tablet 10 mg PO DIRECTED Qty: 41 0RF Rx Instructions: see taper instructions 60mg on day 1-5, 40mg on day 6, 30mg on day 7, 20mg on day 8, 10mg on day 9, 5mg on day 10 No Action clonidine HCl 0.1 mg tablet 0.1 mg PO TID PRN (Reason: ANXIETY ) fluticasone propion-salmeterol [Advair Diskus] 500-50 mcg/dose blister with device 1 ea INHALATION BID PRN (Reason: Shortness Of Breath Or Wheezing) albuterol sulfate [Ventolin HFA] 90 mcg/actuation HFA aerosol inhaler 2 puff inhalation Q6H PRN (Reason: wheezing) clonazepam 2 mg Tablet 2 mg PO BID ipratropium-albuterol 0.5 mg-3 mg(2.5 mg base)/3 mL solution for nebulization 3 ml inhalation QID PRN (Reason: WHEEZING ) gabapentin 600 mg tablet 600 mg PO BEDTIME cefuroxime axetil 250 mg tablet 250 mg PO BID 7 Days Qty: 14 0RF promethazine 12.5 mg tablet 12.5 mg PO BID fluvoxamine 100 mg tablet 100 mg PO BEDTIME clonazepam 2 mg tablet 2 mg PO DAILY PRN (Reason: Anxiety) methadone 10 mg/mL Concentrate 60 mg PO QAM methadone 10 mg/mL Concentrate 20 mg PO QPM fluticasone propionate 50 mcg/actuation spray,suspension 1 spray intranasal Q12H PRN (Reason: Allergy Symptoms) Rx Instructions: administer into each nostril ipratropium-albuterol 0.5 mg-3 mg(2.5 mg base)/3 mL Solution For Nebulization 3 ml inhalation RQ4H WHILE AWAKE Qty: 180 0RF Rx Instructions: Use DuoNeb updraft every 4 hours while awake x2 days then as needed prednisone 20 mg tablet 20 mg PO DAILY Qty: 7 0RF Rx Instructions: Take with food albuterol sulfate 2.5 mg /3 mL (0.083 %) solution for nebulization 2.5 mg inhalation Q6H Qty: 75 0RF albuterol sulfate 90 mcg/actuation aerosol powdr breath activated 2 inh inhalation Q4-6H PRN (Reason: shortness of breath or wheezing) Qty: 1 0RF azithromycin 250 mg tablet See Rx Instructions .ROUTE .COMPLEX Qty: 6 0RF Rx Instructions: For 250 mg dose pack: take 500 mg today (day 1), then 250 mg for 4 days (days 2-5) prednisone 50 mg tablet 50 mg PO DAILY 5 Days Qty: 5 0RF Print Language: Persian
[2024-04-10 14:00] VITALS: PULSE 77; RESP 27; O2SAT 94
[2024-04-10 14:04] LABS: Basophils Percent Auto 0.2 % (0-2); Eosinophils Absolute Auto 0.4 X10*3/uL (0.0-0.4); Eosinophils Percent Auto 9.1 % (0-4); Hematocrit 32.8 % (37.0-47.0); Hemoglobin 11.1 g/dl (12.0-16.0); Lymphocytes Absolute Auto 1.7 X10*3/uL (1.2-4.9); Lymphocytes Percent Auto 42.7 % (20-40); MANUAL DIFF FLAG SCAN; Mean Corpuscular HGB Conc 33.8 g/dl (31.0-35.0); Mean Corpuscular Hemoglobin 29.8 pg (27.0-33.0); Mean Corpuscular Volume 88.2 fL (80.0-98.0); Mean Platelet Volume 10.2 fL (9.4-12.3); Monocytes Absolute Auto 0.4 X10*3/uL (0.1-1.2); Monocytes Percent Auto 9.9 % (2-11); Neutrophils Absolute Auto 1.5 x10*3/uL (2.0-8.3); Neutrophils Percent Auto 38.1 % (45-73); Platelet Count 205 X10*3/uL (160-400); Red Blood Count 3.72 X10*6/uL (4.20-5.50); Red Cell Distribution Width 13.8 % (11.0-16.0); SCAN SMEAR FLAG 1; White Blood Count 4.1 X10*3/uL (4.8-10.8)
--- NOTE | 2024-04-10 14:04 | PC.NURSE ---
patient presented to ED with increase work of breathing. patient states she has felt she has had more sputum production and feels very tired. patient has audible wheezing, respirations even, equal chest rise and fall, resp tachypneic and shallow. IV placed in the Right wrist 22#, medicated per OCT.
[2024-04-10] MEDS: Albuterol Sulfate 5 MG, Albuterol/Iprat 2.5/0.5MG 3 ML 3 ML INHALE (14:07)
[2024-04-10 14:24] LABS: SLIDE REVIEW VERIFIED
[2024-04-10 14:31] LABS: Anion Gap 12 (12-20); Blood Urea Nitrogen 8 mg/dL (9-16); Calcium 8.7 mg/dL (8.4-10.2); Carbon Dioxide 27 mmol/L (22-29); Chloride 107 mmol/L (96-108); Creatinine Clr Calc Pharmacy 132.3; Estimated Glomerular Filt Rate > 60; Glucose Random 87 mg/dL (60-115); Potassium 3.8 mmol/L (3.3-5.1); Sodium 142 mmol/L (135-145)
[2024-04-10 14:33] LABS: HCG Quantitative < 2 mIU/mL
[2024-04-10 14:42] LABS: Influenza A PCR NEGATIVE (Negative); Influenza B PCR NEGATIVE (Negative); Resp Syncy Virus RNA Qual PCR NEGATIVE (Negative); SARS COV2 PCR INHOUSE NEGATIVE (Negative)
[2024-04-10 14:51] VITALS: PULSE 96; RESP 22; O2SAT 97
[2024-04-10] MEDS: levalbuterol HCL 1.25 MG/3 ML VIAL.NEB 3.75 MG INHALE (14:56)
[2024-04-10] MEDS: clonazePAM 1 MG TABLET 2 MG PO (14:57)
[2024-04-10 15:21] VITALS: BP 120/79; PULSE 99; RESP 12; TEMP 36.6; O2SAT 99
[2024-04-10 15:28] VITALS: BP 120/79; PULSE 99; RESP 12; TEMP 36.6; O2SAT 99
== END 2024-04-10 15:28 | disposition home or self-care (01) ==
PROVIDERS: Emergency Provider Emergency Medicine
DX: J45.51 Severe persistent asthma with (acute) exacerbation (principal); R06.02 Shortness of breath; Z03.818 Encounter for observation for suspected exposure to other biological agents ruled out
CPT/HCPCS: 0241U; 36415; 71045; 80048; 84702; 85025; 94640; 96365; 96375; 99285; J2919; J3475

== ENCOUNTER 2024-05-14 15:41 | Emergency (ER) | payer MEDICAID, SELFPAY ==
--- NOTE | ~2024-05-14 | XR_ITS ---
EXAMINATION: XR CHEST CLINICAL INFORMATION: Chest pain COMPARISON: 04/10/24 TECHNIQUE: 2 views of the chest were obtained. FINDINGS: Metallic densities superimposed over the breasts The cardiac size is within normal limits. No mediastinal or hilar mass. The vasculature is normal. Relatively large lung volumes. No focal pneumonia or major zone atelectasis. No pleural fluid or pneumothorax demonstrated. There is mild broad convex right thoracic curve. XR/XR chest 2V IMPRESSION: No pneumonia or edema. Electronically signed by: Cy Chavez MD 05/14/2024 05:21 PM EDT
--- NOTE | 2024-05-14 15:49 | ECG_ITS ---
Test Reason : chest pain with arm numbness Blood Pressure : / mmHG Vent. Rate : 079 BPM Atrial Rate : 079 BPM P-R Int : 164 ms QRS Dur : 084 ms QT Int : 372 ms P-R-T Axes : 073 069 065 degrees QTc Int : 426 ms Normal sinus rhythm Normal ECG When compared with ECG of 25-NOV-2023 06:43, No significant change was found Referred By: Berenice Altamirano Electronically Signed By:CARLTON RIVERA
[2024-05-14 16:12] VITALS: BP 98/65; PULSE 65; RESP 18; TEMP 36.8; O2SAT 98; BMI 24.1
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
--- NOTE | 2024-05-14 16:14 | MHC.EDTECH ---
Patient ekg taken and was read by Provider .
== END 2024-05-14 20:07 | disposition left against medical advice (07) ==
LOC: HO.ED 20:09
PROVIDERS: Emergency Provider Emergency Medicine; PCP Student in an Organized Health Care Education/Training Program
DX: R07.89 Other chest pain (principal); R56.9 Unspecified convulsions; Z79.899 Other long term (current) drug therapy
CPT/HCPCS: 71046; 93005; 99283

== ENCOUNTER 2024-06-11 00:01 | Emergency (ER) | payer MEDICAID, SELFPAY ==
--- NOTE | ~2024-06-11 | XR_ITS ---
EXAMINATION: XR ANKLE, LEFT CLINICAL INFORMATION: Injury. Swelling. COMPARISON: None available. TECHNIQUE: AP, lateral, and mortise views of the left ankle. FINDINGS: The bone mineralization is normal. The joint spaces are maintained. There is an apparent bony defect along the anterior superior navicular bone with some adjacent linear bony densities. There is anterolateral soft tissue swelling along the mid foot. XR/XR ankle LT 2V IMPRESSION: Apparent defect along the anterior superior navicular bone with adjacent small bony densities and soft tissue swelling. Consider an avulsion type bony injury. Electronically signed by: Kirby Ramsey MD 06/11/2024 01:46 AM EDT
--- NOTE | ~2024-06-11 | XR_ITS ---
EXAMINATION: XR FOOT, LEFT CLINICAL INFORMATION: Injury. Pain. COMPARISON: None available. TECHNIQUE: AP, lateral, and oblique views of the left foot. FINDINGS: The bone mineralization is normal. There is a 4 mm bony density along the anterior superior talus as well as a small bony densities along the anterior superior navicular bone. There is also lateral soft tissue swelling at the midfoot. No other osseous abnormality is seen. XR/XR foot LT 2V IMPRESSION: Small bony densities along the anterior superior talus as well as anterior superior navicular bone suggests avulsion type injuries associated with soft tissue swelling. Electronically signed by: Kirby Ramsey MD 06/11/2024 02:16 AM EDT
[2024-06-11 00:03] VITALS: BP 98/71; PULSE 113; RESP 16; TEMP 36.9; O2SAT 96; BMI 18.3
[2024-06-11] MEDS: traMADoL HCL 50 MG TABLET PO (00:46)
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
[2024-06-11 02:33] VITALS: BP 98/71; PULSE 113; RESP 16; TEMP 36.9; O2SAT 96
== END 2024-06-11 02:34 | disposition home or self-care (01) ==
PROVIDERS: Emergency Provider Internal Medicine; PCP Student in an Organized Health Care Education/Training Program
DX: S92.902A Unspecified fracture of left foot, initial encounter for closed fracture (principal); W18.40XA Slipping, tripping and stumbling without falling, unspecified, initial encounter; Y93.89 Activity, other specified; Y92.9 Unspecified place or not applicable; Y99.9 Unspecified external cause status; Z91.414 Personal history of adult intimate partner abuse; M79.672 Pain in left foot; Z79.899 Other long term (current) drug therapy
CPT/HCPCS: 73600; 73620; 99283; 99284

== ENCOUNTER 2024-07-04 16:55 | Emergency (ER) | payer MEDICAID, SELFPAY ==
[2024-07-04] VITALS (21 sets, daily range): BP systolic 118–150; BP diastolic 78–102; PULSE 84–106; RESP 16–31; TEMP 36.1–36.9; O2SAT 91–99; BMI 18.3
--- NOTE | ~2024-07-04 | XR_ITS ---
EXAMINATION: XR CHEST CLINICAL INFORMATION: Shortness of breath, cough. COMPARISON: Chest radiograph 05/14/2024. TECHNIQUE: 2 views of the chest were obtained. FINDINGS: Normal appearance of the cardiomediastinal silhouette. No focal consolidation, pleural effusion or pneumothorax. No acute osseous findings. Visualized upper abdomen is within normal limits. XR/XR chest 2V IMPRESSION: No acute cardiopulmonary findings. Electronically signed by: Eladia Coreas MD 07/04/2024 05:58 PM EST
--- NOTE | ~2024-07-04 | CT_ITS ---
EXAMINATION: CT ANGIOGRAM CHEST, PE PROTOCOL CLINICAL INFORMATION: tachypnea, wheezing, r/o PE COMPARISON: Chest x-ray May 14, 2024 TECHNIQUE: Multidetector CT pulmonary angiography of the thorax was performed according to the pulmonary embolism protocol after intravenous administration of 65 mL of intravenous Omnipaque. Reformatted coronal and sagittal imaging was performed. 3-D MIP images performed at a dedicated separate workstation. This CT examination was performed using dose optimization techniques as appropriate, variously including the following: *Automated exposure control *Adjustment of mA and/or kV according to patient size (this includes techniques or standardized protocols for targeted exams where dose is matched to indication/reason for exam; i.e. extremities or head) *Use of iterative reconstruction technique DLP: 220 mGy-cm QUALITY: Overall Exam Quality: Satisfactory. Pulmonary Arterial Enhancement: Adequate. Breath Hold: Adequate. Artifacts Impacting Image Quality: None. FINDINGS: VASCULAR: Heart: Normal in size. Coronary artery calcifications not present. Aorta: No thoracoabdominal aortic aneurysm. Three vessel arch. Pulmonary Artery: No filling defect is identified in the central, lobar, segmental or subsegmental pulmonary arterial branches to suggest pulmonary embolus. NONVASCULAR: THORAX: Thyroid Gland: The visualized thyroid gland is normal. Lymph Nodes: No supraclavicular, axillary, mediastinal or hilar lymphadenopathy is identified. Airways: The trachea and central bronchi are normal. Scattered foci of impacted subsegmental bronchial airways with bronchial wall thickening. Lungs: Patchy scattered areas of geographic groundglass. Scattered centrilobular nodules. Pleura: No pleural effusion. No pneumothorax. Upper Abdomen: The visualized upper abdomen is unremarkable. Soft Tissues/Musculoskeletal: No acute fracture or significant focal lesion. CT/CT angio chest PE protocol IMPRESSION: 1. No acute pulmonary embolus up to the subsegmental level. 2. Lung parenchymal findings consistent with inhalational lung injury, small airway disease, or bronchitis. Fleischner guidelines were followed. Electronically signed by: Michael Musa DO 07/04/2024 08:50 PM EST
--- NOTE | 2024-07-04 16:58 | ED.GENADULT ---
HPI - General Adult General Chief complaint: Dyspnea Stated complaint: pneumonia/asthma sob Time Seen by Provider: 07/04/24 17:03 Source: patient Mode of arrival: ambulatory Limitations: no limitations History of Present Illness ED Provider: Sabina Wylie APRN HPI narrative: 28 yo female with history of asthma, pneumonia, history of polysubstance use here with complaints of chills, body aches, productive cough, shortness of breath, fever with max temp 101, chest discomfort and wheezing x 1 week. No leg swelling, leg pain, neck pain/stiffness, vomiting, diarrhea, skin rash. Multiple admissions for asthma. Vapes daily. Related Data Home Medications ?Medication ?Instructions ?Recorded ?Confirmed clonidine HCl 0.1 mg tablet 0.1 mg PO TID PRN ANXIETY 02/18/23 10/26/23 albuterol sulfate 90 mcg/actuation 2 puff inhalation Q6H PRN wheezing 06/12/23 10/26/23 aerosol inhaler (Ventolin HFA) clonazepam 2 mg tablet 2 mg PO BID Anxiety 06/12/23 10/26/23 fluticasone 500 mcg-salmeterol 50 1 ea inhalation BID PRN Shortness 06/12/23 10/26/23 mcg/dose blistr powdr for Of Breath Or Wheezing inhalation (Advair Diskus) ipratropium 0.5 mg-albuterol 3 mg 3 ml inhalation QID PRN WHEEZING 06/12/23 10/26/23 (2.5 mg base)/3 mL nebulization soln gabapentin 600 mg tablet 600 mg PO BEDTIME 06/21/23 10/26/23 clonazepam 2 mg tablet 2 mg PO DAILY PRN Anxiety 10/26/23 10/26/23 fluticasone propionate 50 1 spray intranasal Q12H PRN 10/26/23 10/26/23 mcg/actuation nasal Allergy Symptoms spray,suspension fluvoxamine 100 mg tablet 100 mg PO BEDTIME 10/26/23 10/26/23 methadone 10 mg/mL oral concentrate 20 mg PO QPM 10/26/23 10/26/23 methadone 10 mg/mL oral concentrate 60 mg PO QAM 10/26/23 10/26/23 promethazine 12.5 mg tablet 12.5 mg PO BID nausea 10/26/23 10/26/23 Previous Rx's ?Medication ?Instructions ?Recorded ipratropium 0.5 mg-albuterol 3 mg 3 ml inhalation RQ4H WHILE AWAKE 10/27/23 (2.5 mg base)/3 mL nebulization #180 mL soln prednisone 20 mg tablet 20 mg PO DAILY #7 tabs 10/27/23 albuterol sulfate 2.5 mg/3 mL 2.5 mg (3 mL) inhalation Q6H #75 mL 10/31/23 (0.083 %) solution for nebulization albuterol sulfate 90 mcg/actuation 2 inh inhalation Q4-6H PRN 10/31/23 breath activated powder inhaler shortness of breath or wheezing #1 ea azithromycin 250 mg tablet See Rx Instructions PO .COMPLEX #6 10/31/23 tabs prednisone 50 mg tablet 50 mg PO DAILY 5 days #5 tabs 10/31/23 cefuroxime axetil 250 mg tablet 250 mg PO BID 7 days #14 tabs 11/25/23 amoxicillin 875 mg-potassium 1 tab PO BID #14 tabs 04/10/24 clavulanate 125 mg tablet prednisone 10 mg tablet 10 mg PO DIRECTED #41 tabs 04/10/24 promethazine 25 mg tablet 25 mg PO TID PRN nausea and 04/10/24 vomiting #20 tabs clonazepam 2 mg tablet 2 mg PO TID #21 tabs 06/11/24 oxycodone 5 mg tablet 5 mg PO Q6H PRN severe pain (scale 06/11/24 score 7-10) #12 tabs promethazine 12.5 mg tablet 12.5 mg PO BID #21 tabs 06/11/24 promethazine 12.5 mg tablet 12.5 mg PO TID PRN nausea and 06/11/24 vomiting #21 tabs azithromycin 250 mg tablet See Rx Instructions PO .COMPLEX #6 07/04/24 tabs prednisone 20 mg tablet 40 mg (2 x 20 mg) PO DAILY #10 tabs 07/04/24 Allergies Allergy/AdvReac Type Severity Reaction Status Date / Time latex [LATEX] Allergy Intermediate RASH Verified 07/04/24 17:01 ondansetron [From Zofran] Allergy Intermediate Shortness Verified 06/11/24 00:08 of Breath propranolol Allergy Intermediate Shortness Verified 06/11/24 00:08 of Breath acetaminophen Allergy Difficulty Verified 06/11/24 00:08 Breathing adhesive tape [ADHESIVE TAPE] AdvReac Intermediate RASH Verified 06/11/24 00:08 Review of Systems Review of Systems: Yes all other systems are reviewed and are negative Constitutional: Constitutional: Reports no additional constitutional complaints, Reports body ache(s), Reports chills, Reports fever(s), Denies headache(s) and Denies weakness Eyes: Eyes: Reports no additional eye complaints and Denies change in vision ENT: Reports system reviewed and no additional complaints, except as documented, Denies dizziness, Denies headache(s), Reports nasal congestion, Denies nasal discharge and Denies neck pain Cardiovascular: Cardiovascular: Reports no additional cardiovascular complaints, Reports chest pain, Denies leg edema and Reports dyspnea Respiratory: Respiratory: Reports no additional respiratory complaints, Reports cough and Reports dyspnea Gastrointestinal: Gastrointestinal: Reports no additional gastrointestinal complaints, Denies abdominal pain, Denies diarrhea, Denies nausea and Denies vomiting Genitourinary: Genitourinary: Reports no additional female genitourinary complaints and Denies urinary incontinence Musculoskeletal: Musculoskeletal: Reports no additional musculoskeletal complaints, Denies back pain, Denies arthralgias, Denies joint swelling, Denies neck pain, Denies numbness and Denies tingling Integumentary/Breasts: Skin/Breast: Reports system reviewed and no additional complaints, except as docu and Denies rash Neurologic: Reports system reviewed and no additional complaints, except as documented, Denies Abnormal speech present, Denies dizziness, Denies headache(s), Denies numbness, Denies tingling and Denies weakness PMFSH Past Medical History Attestation statement: The following information was validated with the patient. Source: old records reviewed and nursing notes reviewed Medical History Mood disorder Polysubstance abuse Pneumonitis Asthma Asthma Pneumonia due to COVID-19 virus COVID-19 Bipolar disorder PTSD (post-traumatic stress disorder) Depression Anxiety Asthma GERD (gastroesophageal reflux disease) Crohn's disease Opioid use disorder Family History Family History Father Colon cancer Mother No problems noted. Brother Autism Sister Bipolar disorder Maternal Aunt Breast cancer Social History Social History Household Members: None Housing: Apartment Housing Other:: motel Do you presently have visiting nurse or other home services: No Unable to assess alcohol history related to: Unknown Alcohol intake: never Patient Tobacco Use Status: Former Tobacco user Cigarette Packs Per Day: 0.33 Cigarettes Per Day: 6.6 Years Smoked: 9 e-Cigarette/Vaping Use: Former Use Second Hand Smoke Exposure: Yes Use of substances other than those prescribed or required for medical reasons: Unknown Substance Use Type: Heroin Advance Directives: Yes Advance Directives on File: Yes Advance Directives Date on File: 05/07/21 Do you have a plan to hurt others: No Plan service: No Current occupational status: unemployed Cognitive needs: No Hearing needs: No Vision needs: No Physical Exam ED Vital Signs: Vital Signs - 24 hr 07/04/24 16:58 07/04/24 17:28 07/04/24 17:38 Temperature 97 F Pulse Rate 106 H 96 90 Respiratory Rate 26 H 31 H 22 H Blood Pressure 138/99 H 138/91 H 141/85 H Pulse Oximetry 98 93 Oxygen Delivery Method Room Air Room Air Room Air 07/04/24 17:40 07/04/24 17:42 07/04/24 17:43 Temperature Pulse Rate 102 H 88 Respiratory Rate 17 18 Blood Pressure 150/90 H 132/78 Pulse Oximetry 95 97 96 Oxygen Delivery Method Room Air Room Air Room Air 07/04/24 17:49 07/04/24 18:02 07/04/24 18:22 Temperature Pulse Rate 84 90 91 Respiratory Rate 20 16 22 H Blood Pressure 134/91 H 135/98 H Pulse Oximetry 95 Oxygen Delivery Method Room Air 07/04/24 18:42 07/04/24 19:00 07/04/24 19:02 Temperature 98.4 F Pulse Rate 93 93 Respiratory Rate 24 H 19 Blood Pressure 139/89 145/93 H 145/93 H Pulse Oximetry 95 95 Oxygen Delivery Method Room Air Room Air 07/04/24 19:02 07/04/24 19:23 07/04/24 19:35 Temperature Pulse Rate 98 Respiratory Rate 16 16 Blood Pressure 145/93 H 134/102 H 118/86 Pulse Oximetry 92 Oxygen Delivery Method Room Air Room Air 07/04/24 19:37 07/04/24 20:38 07/04/24 20:53 Temperature Pulse Rate 92 95 96 Respiratory Rate 16 16 Blood Pressure 135/92 H 131/88 Pulse Oximetry 94 95 91 L Oxygen Delivery Method Room Air Room Air 07/04/24 21:04 07/04/24 21:08 07/04/24 21:23 Temperature 98.3 F Pulse Rate 92 96 Respiratory Rate 18 16 Blood Pressure 131/88 124/85 137/91 H Pulse Oximetry 93 92 99 Oxygen Delivery Method Room Air Room Air 07/04/24 22:11 Temperature Pulse Rate 92 Respiratory Rate 18 Blood Pressure Pulse Oximetry Oxygen Delivery Method BMI result Body Mass Index 18.3 Const General: cooperative, healthy appearing, comfortable and no acute distress Orientation/consciousness: patient oriented x3 Limitations: no limitations HENMT Head: Yes normal to inspection Ears: hearing grossly normal bilaterally General nose exam: Normal external nose present Face and sinus: Yes normal facial exam Mouth: Normal oral and palatal mucosa present Throat: Yes posterior oropharynx normal Eyes General: appearance normal, both eyes and all related structures Pupils: Equal, round and reactive pupils present Neck Neck: Yes normal visual inspection Chest Chest palpation & inspection: normal inspection of the chest Resp Effort & Inspection: tachypneic Auscultation: rhonchi and wheezes Cardio Rate: regular rate Rhythm: regular rhythm Peripheral pulses: Peripheral pulses 2+ throughout GI Inspection: Yes normal to inspection Palpation (GI): Soft to palpation and nontender Auscultation: normal bowel sounds Back/Spine/Pelvis Thoracic/Lumbar Spine: thoracic and lumbar spine normal to inspection Skin General skin exam: no rashes or lesions noted Neuro General: patient oriented x3, no focal motor deficits and normal sensation to monofilament Cranial nerves: Yes Equal, round and reactive pupils present Cognition (Neuro): normal cognition Speech: No Abnormal speech present Gait exam (Neuro): Normal gait present Motor exam (neuro): 5/5 motor strength present throughout Extrem General: Yes normal to inspection, Yes no pedal edema and Yes no calf tenderness Course Course Course Narrative: RME performed by Connie Grewal PA-C. Patient is a 28 year old assigned female at presenting to the emergency department with coughing and feeling generally unwell. Detailed physical exam and review of systems are deferred to the publication distributor. Imaging and swabs ordered. Patient placed back in the waiting room pending room availability and results. Reevaluation(s) Reevaluation #1: CXR shows no signs of PNA. Viral testing negative. Patient with continued wheezing/rhonchi. Receiving albuterol at this time. With history of pneumonitis, polysubstance use I do believe a CT with IV contrast is necessary to r/o occult PNA and in addition a PE. Reevaluation #2: 1900-Sign out to [place] GONZALEZ pending CT and re-evaluation Reevaluation #3: Patient's CTA shows no evidence of pneumonia or pulmonary embolism. There is evidence of bronchitis. When I went to evaluate the patient, her oxygen saturation was 93% while she was sleeping. I woke her up in her oxygen saturation improved 95%. She is quite wheezy on exam still. Plan for additional nebulizer treatment and ambulation trial to determine disposition Time: 21:14 Additional Reevaluation(s): Patient has received several nebulizers, Solu-Medrol, magnesium, she has not decided whatsoever. The patient can be discharged at this time, she passed her ambulation trial. We will cover her with prednisone and azithromycin Medications Administered Discontinued Medications Generic Name Dose Route Start Last Admin Trade Name Freq PRN Reason Stop Dose Admin Albuterol Sulfate 2.5 mg/ 5 mg 07/04/24 17:33 07/04/24 17:36 Albuterol Sulfate 2.5 mg INHALE 07/04/24 17:34 5 mg ONCE ONE Administration Albuterol Sulfate 2.5 mg/ 5 mg 07/04/24 21:49 07/04/24 22:07 Albuterol Sulfate 2.5 mg INHALE 07/04/24 21:50 5 mg ONCE ONE Administration Ceftriaxone Sodium 2 gm 07/04/24 17:17 07/04/24 17:45 Ceftriaxone Sodium 2 Gm Vial IVPUSH 07/04/24 17:18 2 gm ONCE ONE Administration Clonazepam 1 mg 07/04/24 17:10 07/04/24 17:36 Clonazepam 1 Mg Tablet PO 07/04/24 17:11 1 mg ONCE ONE Administration Magnesium Sulfate 2 gm in 50 mls @ 25 mls/hr 07/04/24 17:09 07/04/24 17:45 Magnesium Sulfate/H2o IV 07/04/24 19:08 Infused ONCE ONE Infusion Sodium Chloride 1,000 mls @ 999 mls/hr 07/04/24 17:10 07/04/24 19:10 Ns IV 07/04/24 18:10 Infused .Q1H1M STA Infusion Iohexol 100 ml 07/04/24 20:03 07/04/24 20:04 Iohexol 350 Mg/Ml 100 Ml Infus..Btl IV 07/04/24 20:04 65 ml ONCE ONE Administration Lorazepam 2 mg 07/04/24 19:27 07/04/24 19:33 Lorazepam 1 Mg Tablet PO 07/04/24 19:28 2 mg ONCE ONE Administration Methylprednisolone Sodium Succinate 125 mg 07/04/24 17:09 07/04/24 17:35 Methylprednisolone Sod Succ 125 Mg/2 Ml Vial IVPUSH 07/04/24 17:10 125 mg ONCE ONE Administration Promethazine HCl 25 mg 07/04/24 17:10 07/04/24 17:36 Promethazine Hcl 25 Mg Tablet PO 07/04/24 17:11 25 mg ONCE ONE Administration Medical Decision Making Medical Decision Making MDM Narrative: 28 yo female with history of severe persistent asthma who vapes, pneumonitis and polysubstance use here with complaints of one week of URI symptoms in addition to fever and now with diff breathing and chest discomfort. On arrival patient is tachypnic, tachycardic with wheezing and course breath sounds throughout. I suspect she an asthma exacerbation that is being triggered by a viral cause and she may now have a superimposed infection. At this time infection is suspected. I have ordered labs including blood cultures, lactic acid, viral testing, CXR, EKG Ordered magnesium IV, solumedrol, Duoneb, ceftriaxone IV. Patient is requesting her klonopin which she takes regularly as well as phenergan for nausea. I will order these. Differential Diagnosis Differential Diagnoses: The differential diagnosis associated with the presentation includes asthma exacerbation, PNA, viral syndrome, influenza, PE Admission/Observation Consideration of admission/observation: Escalation of care including admission/observation considered Lab Data [facility] Lab Attestation statement: I reviewed the patient's lab results. 07/04/24 17:39 07/04/24 17:39 Labs: Lab Results 07/04/24 Range/Units 17:39 WBC 8.4 (4.8-10.8) X10*3/uL RBC 4.57 D (4.20-5.50) X10*6/uL Hgb 13.7 D (12.0-16.0) g/dl Hct 39.3 (37.0-47.0) % MCV 86.0 (80.0-98.0) fL MCH 30.0 (27.0-33.0) pg MCHC 34.9 (31.0-35.0) g/dl RDW 13.1 (11.0-16.0) % Plt Count 205 (160-400) X10*3/uL MPV 10.1 (9.4-12.3) fL Immature Gran % (Auto) 0.5 H (0.0-0.4) % Neut % (Auto) 87.2 H (45-73) % Lymph % (Auto) 7.8 L (20-40) % [place] % (Auto) 2.9 (2-11) % Eos % (Auto) 1.4 (0-4) % Baso % (Auto) 0.2 (0-2) % Lymph # (Auto) 0.7 L (1.2-4.9) X10*3/uL [place] # (Auto) 0.2 (0.1-1.2) X10*3/uL Eos # (Auto) 0.1 (0.0-0.4) X10*3/uL Baso # (Auto) 0.0 (0.0-0.2) X10*3/uL Abs Immat Gran (auto) 0.04 H (0.00-0.03) X10*3/uL Absolute Neuts (auto) 7.3 (2.0-8.3) x10*3/uL Absolute Nucleated RBC 0.000 (0.0-0.012) X10*3/uL Nucleated RBC % (auto) 0.0 (0.0-0.2) /100WBC Sodium 140 (135-145) mmol/L Potassium 3.8 (3.3-5.1) mmol/L Chloride 109 H (96-108) mmol/L Carbon Dioxide 19 L (22-29) mmol/L Anion Gap 16 (12-20) BUN 3 L (9-16) mg/dL Creatinine 0.55 (0.5-1.4) mg/dL Estim Creat Clear Calc 122.1 Estimated GFR > 60 Random Glucose 126 H (60-115) mg/dL Lactic Acid 2.0 (0.5-2.0) mmol/L Calcium 10.1 D (8.4-10.2) mg/dL Total Bilirubin 0.3 (0.0-1.0) mg/dL Direct Bilirubin 0.1 (0.0-0.5) mg/dL AST 20 (5-31) U/L ALT 9 (0-31) U/L Alkaline Phosphatase 58 (39-117) U/L Troponin I High Sens < 2.7 (<3.5-17.0) ng/L Total Protein 7.7 (6.5-8.0) g/dL Albumin 4.3 (3.5-5.0) g/dL Beta-Hydroxybutyrate Cancelled Beta HCG, Quant < 2 mIU/mL Influenza Type A (PCR) NEGATIVE (Negative) Influenza Type B (PCR) NEGATIVE (Negative) RSV RNA Qual (PCR) NEGATIVE (Negative) SARS-CoV-2 RNA (RT-PCR) NEGATIVE (Negative) Independent Interpretation I performed an independent interpretation of an: EKG, Plain X-Ray and CT Scan Interpretation: I independently viewed the EKG which shows normal sinus rhythm with a rate of 94, normal AK, normal QRS, normal QT I independently viewed the x-ray and agree with the radiology report Radiology Impression Discussion of test interpretation with radiology: I have reviewed the radiologist's reading. Radiologist Impression: [place] [id number] XRay Report Signed Patient: Christa Daigle MR#: [id number] : 1995 Acct:[id number] Age/Sex: 28 / F ADM Date: 07/04/24 Loc: .ED Attending Dr: Ordering Physician: Connie Grewal Date of Service: 07/04/24 Procedure(s): XR chest 2V Accession Number(s): [id number] cc: Connie Grewal; Stephanie Clark MD~ EXAMINATION: XR CHEST CLINICAL INFORMATION: Shortness of breath, cough. COMPARISON: Chest radiograph 05/14/2024. TECHNIQUE: 2 views of the chest were obtained. FINDINGS: Normal appearance of the cardiomediastinal silhouette. No focal consolidation, pleural effusion or pneumothorax. No acute osseous findings. Visualized upper abdomen is within normal limits. XR/XR chest 2V IMPRESSION: No acute cardiopulmonary findings. Electronically signed by: Eladia Coreas MD 07/04/2024 05:58 PM [facility] Independent Historian Clinical information obtained from an independent historian. History obtained from or confirmed by: Friend External Record Review External record reviewed: Inpatient record and Outpatient record Tests considered The following testing was considered but not selected: see above Prescription Management I considered prescription management with: Antibiotic Chronic Conditions Patient?s care impacted by: Other (asthma ) Social Determinants Patient?s care significantly limited by Social Determinants of Health including: Inadequate housing, Alcoholism and drug addiction in family and Problems related to primary support group Discharge Plan Discharge Clinical Impression: Asthma with exacerbation Patient Disposition: Home, Self-Care Instructions: Asthma (ED) Additional Instructions: Your testing for flu, covid and rsv are negative Your chest x-ray shows no signs of pneumonia Take motrin or tylenol for pain or fever Take prednisone 40 mg daily for the next 5 days. Use azithromycin as directed Prescriptions: New azithromycin 250 mg tablet See Rx Instructions .ROUTE .COMPLEX Qty: 6 0RF Rx Instructions: For 250 mg dose pack: take 500 mg today (day 1), then 250 mg for 4 days (days 2-5) prednisone 20 mg tablet 40 mg PO DAILY Qty: 10 0RF No Action clonidine HCl 0.1 mg tablet 0.1 mg PO TID PRN (Reason: ANXIETY ) fluticasone propion-salmeterol [Advair Diskus] 500-50 mcg/dose blister with device 1 ea INHALATION BID PRN (Reason: Shortness Of Breath Or Wheezing) albuterol sulfate [Ventolin HFA] 90 mcg/actuation HFA aerosol inhaler 2 puff inhalation Q6H PRN (Reason: wheezing) clonazepam 2 mg Tablet 2 mg PO BID ipratropium-albuterol 0.5 mg-3 mg(2.5 mg base)/3 mL solution for nebulization 3 ml inhalation QID PRN (Reason: WHEEZING ) gabapentin 600 mg tablet 600 mg PO BEDTIME cefuroxime axetil 250 mg tablet 250 mg PO BID 7 Days Qty: 14 0RF oxycodone 5 mg tablet 5 mg PO Q6H PRN (Reason: severe pain (scale score 7-10)) Qty: 12 0RF Rx Instructions: Partial Fill upon patient request. promethazine 12.5 mg tablet 12.5 mg PO TID PRN (Reason: nausea and vomiting) Qty: 21 0RF clonazepam 2 mg tablet 2 mg PO TID Qty: 21 0RF promethazine 12.5 mg tablet 12.5 mg PO BID Qty: 21 0RF promethazine 12.5 mg tablet 12.5 mg PO BID fluvoxamine 100 mg tablet 100 mg PO BEDTIME clonazepam 2 mg tablet 2 mg PO DAILY PRN (Reason: Anxiety) methadone 10 mg/mL Concentrate 60 mg PO QAM methadone 10 mg/mL Concentrate 20 mg PO QPM fluticasone propionate 50 mcg/actuation spray,suspension 1 spray intranasal Q12H PRN (Reason: Allergy Symptoms) Rx Instructions: administer into each nostril ipratropium-albuterol 0.5 mg-3 mg(2.5 mg base)/3 mL Solution For Nebulization 3 ml inhalation RQ4H WHILE AWAKE Qty: 180 0RF Rx Instructions: Use DuoNeb updraft every 4 hours while awake x2 days then as needed prednisone 20 mg tablet 20 mg PO DAILY Qty: 7 0RF Rx Instructions: Take with food albuterol sulfate 2.5 mg /3 mL (0.083 %) solution for nebulization 2.5 mg inhalation Q6H Qty: 75 0RF albuterol sulfate 90 mcg/actuation aerosol powdr breath activated 2 inh inhalation Q4-6H PRN (Reason: shortness of breath or wheezing) Qty: 1 0RF azithromycin 250 mg tablet See Rx Instructions .ROUTE .COMPLEX Qty: 6 0RF Rx Instructions: For 250 mg dose pack: take 500 mg today (day 1), then 250 mg for 4 days (days 2-5) prednisone 50 mg tablet 50 mg PO DAILY 5 Days Qty: 5 0RF amoxicillin-pot clavulanate 875-125 mg tablet 1 tab PO BID Qty: 14 0RF promethazine 25 mg tablet 25 mg PO TID PRN (Reason: nausea and vomiting) Qty: 20 0RF prednisone 10 mg tablet 10 mg PO DIRECTED Qty: 41 0RF Rx Instructions: see taper instructions 60mg on day 1-5, 40mg on day 6, 30mg on day 7, 20mg on day 8, 10mg on day 9, 5mg on day 10 Referrals: Stephanie Clark MD [Primary Care Provider] - 1 week Print Language: Lithuanian
--- NOTE | 2024-07-04 17:13 | ECG_ITS ---
Test Reason : DYSPNEA Blood Pressure : / mmHG Vent. Rate : 094 BPM Atrial Rate : 094 BPM P-R Int : 162 ms QRS Dur : 086 ms QT Int : 370 ms P-R-T Axes : 075 059 076 degrees QTc Int : 462 ms Normal sinus rhythm Normal ECG When compared with ECG of 14-MAY-2024 16:00, No significant change was found Referred By: Sabina Wylie Electronically Signed By:Petar Louis
[2024-07-04] MEDS: Magnesium Sulfate/H2O 2 GM/50 ML PIGGYBACK IV (17:20)
[2024-07-04] MEDS: methylPREDNISolone Sod Succ 125 MG/2 ML VIAL IVPUSH (17:35)
[2024-07-04] MEDS: 0.9 % Sodium Chloride 1,000 ML 999 ML IV (17:36)
[2024-07-04] MEDS: clonazePAM 1 MG TABLET PO (17:36)
[2024-07-04] MEDS: Promethazine HCL 25 MG TABLET PO (17:36)
[2024-07-04] MEDS: Albuterol Sulfate 2.5 MG, Albuterol Sulfate (0.083%) 2.5 MG 5 MG INHALE ×2 (17:36→22:07)
[2024-07-04] MEDS: cefTRIAXone sodium 2 GM VIAL IVPUSH (17:45)
[2024-07-04 17:50] LABS: MANUAL DIFF FLAG NO
[2024-07-04 17:53] LABS: Basophils Percent Auto 0.2 % (0-2); Eosinophils Absolute Auto 0.1 X10*3/uL (0.0-0.4); Eosinophils Percent Auto 1.4 % (0-4); Hematocrit 39.3 % (37.0-47.0); Hemoglobin 13.7 g/dl (12.0-16.0); Imm Gran Abs Auto 0.04 X10*3/uL (0.00-0.03); Imm Gran Pct Auto 0.5 % (0.0-0.4); Lymphocytes Absolute Auto 0.7 X10*3/uL (1.2-4.9); Lymphocytes Percent Auto 7.8 % (20-40); Mean Corpuscular HGB Conc 34.9 g/dl (31.0-35.0); Mean Platelet Volume 10.1 fL (9.4-12.3); Monocytes Absolute Auto 0.2 X10*3/uL (0.1-1.2); Monocytes Percent Auto 2.9 % (2-11); Neutrophils Absolute Auto 7.3 x10*3/uL (2.0-8.3); Neutrophils Percent Auto 87.2 % (45-73); Platelet Count 205 X10*3/uL (160-400); Red Blood Count 4.57 X10*6/uL (4.20-5.50); Red Cell Distribution Width 13.1 % (11.0-16.0); White Blood Count 8.4 X10*3/uL (4.8-10.8)
[2024-07-04 18:07] LABS: Alanine Aminotransferase 9 U/L (0-31); Albumin Level 4.3 g/dL (3.5-5.0); Alkaline Phosphatase 58 U/L (39-117); Anion Gap 16 (12-20); Aspartate Amino Transferase 20 U/L (5-31); Bilirubin Direct 0.1 mg/dL (0.0-0.5); Bilirubin Total 0.3 mg/dL (0.0-1.0); Blood Urea Nitrogen 3 mg/dL (9-16); Calcium 10.1 mg/dL (8.4-10.2); Carbon Dioxide 19 mmol/L (22-29); Chloride 109 mmol/L (96-108); Creatinine Clr Calc Pharmacy 122.1; Estimated Glomerular Filt Rate > 60; Glucose Random 126 mg/dL (60-115); Potassium 3.8 mmol/L (3.3-5.1); Sodium 140 mmol/L (135-145); Total Protein 7.7 g/dL (6.5-8.0)
[2024-07-04 18:19] LABS: Troponin-I High Sensitivity < 2.7 ng/L (<3.5-17.0)
[2024-07-04 18:28] LABS: Influenza A PCR NEGATIVE (Negative); Influenza B PCR NEGATIVE (Negative); Resp Syncy Virus RNA Qual PCR NEGATIVE (Negative); SARS COV2 PCR INHOUSE NEGATIVE (Negative)
[2024-07-04 18:37] LABS: HCG Quantitative < 2 mIU/mL
[2024-07-04] MEDS: LORazepam 1 MG TABLET 2 MG PO (19:33)
[2024-07-04] MEDS: iohexoL 350 MG/ML 100 ML INFUS..BTL IV (20:04)
--- NOTE | 2024-07-04 22:50 | PC.NURSE ---
upon ambulation trial PT o2 reached 92% on RA
[2024-07-05] VITALS: BP 147/79; PULSE 100; RESP 16; TEMP 36.6; O2SAT 95
--- NOTE | 2024-07-05 00:19 | PC.NURSE ---
pt a&o, no sob or chest pain, Iv reviewed, reviewed discharge instructions with pt. pt verbalized understanding, no sign of respiratory distress, pt able to speak in full sentence
--- NOTE | 2024-07-05 00:20 | PC.NURSE ---
pt able to ambulate with a steady gait but requesting to wheel chair to waiting room.
[2024-07-05 00:21] VITALS: BP 147/79; PULSE 100; RESP 16; TEMP 36.6; O2SAT 98
== END 2024-07-05 00:22 | disposition home or self-care (01) ==
PROVIDERS: Nurse Practitioner Family; Physician Assistant Medical; Emergency Provider Internal Medicine; PCP Student in an Organized Health Care Education/Training Program
DX: J45.901 Unspecified asthma with (acute) exacerbation (principal); R06.00 Dyspnea, unspecified; M79.10 Myalgia, unspecified site; R05.9 Cough, unspecified; R50.9 Fever, unspecified; Z03.818 Encounter for observation for suspected exposure to other biological agents ruled out; Z79.899 Other long term (current) drug therapy; Z87.891 Personal history of nicotine dependence
CPT/HCPCS: 0241U; 36415; 71046; 71275; 80048; 80076; 83605; 84484; 84702; 85025; 87040; 93005; 94640; 96372; 96374; 96375; 99284; 99285; J0696; J2919; J3475; Q9967

== ENCOUNTER → 2024-07-04 17:13 | Outpatient (BNV) | payer MEDICAID, SELFPAY | PROVIDERS: Emergency Provider Internal Medicine; PCP Student in an Organized Health Care Education/Training Program; Visit Provider Internal Medicine Cardiovascular Disease | DX: R06.00 Dyspnea, unspecified (principal) | CPT/HCPCS: 93010 ==

== ENCOUNTER 2024-08-04 16:35 | Outpatient (REF) | payer MEDICAID, SELFPAY | END 2024-08-04 16:36 | disposition home or self-care (01) | LOC: HO.HOSX 16:35 | PROVIDERS: Visit Provider Physician Assistant | DX: Z13.89 Encounter for screening for other disorder (principal) ==

== ENCOUNTER 2024-09-13 15:01 | Emergency (ER) | payer MEDICAID, SELFPAY ==
[2024-09-13 15:16] VITALS: BP 101/67; PULSE 87; RESP 18; TEMP 36.4; O2SAT 97; BMI 18.6
--- NOTE | 2024-09-13 15:17 | ED_ITS ---
HPI - Skin/Abscess/Foreign Bdy General Chief complaint: Skin/Abscess/Foreign Body Stated complaint: Cyst R arm Time Seen by Provider: 09/13/24 15:34 Source: patient and RN notes reviewed Mode of arrival: ambulatory Limitations: no limitations History of Present Illness ED Provider: Donna Chao PA-C HPI narrative: This is a 29-year-old female, with a history of substance abuse disorder, who presents emergency department with concerns for right wrist swelling. Patient states that she is unsure what caused her to have this region however states that yesterday it is increased in pain and swelling. No fevers or chills. Her tetanus is up-to-date. She does have a history of substance use disorder however states that she has never used intravenously. Denies any other complaints or concerns at this time. MD complaint: abscess/boil Tetanus up to date: yes Quality: aching Pain Consistency: constant Relieving factors: none Exacerbating factors: none Context: none Associated symptoms: denies other symptoms Treatments prior to arrival: none Related Data Home Medications ?Medication ?Instructions ?Recorded ?Confirmed clonidine HCl 0.1 mg tablet 0.1 mg PO TID PRN ANXIETY 02/18/23 10/26/23 albuterol sulfate 90 mcg/actuation 2 puff inhalation Q6H PRN wheezing 06/12/23 10/26/23 aerosol inhaler (Ventolin HFA) clonazepam 2 mg tablet 2 mg PO BID Anxiety 06/12/23 10/26/23 fluticasone 500 mcg-salmeterol 50 1 ea inhalation BID PRN Shortness 06/12/23 10/26/23 mcg/dose blistr powdr for Of Breath Or Wheezing inhalation (Advair Diskus) ipratropium 0.5 mg-albuterol 3 mg 3 ml inhalation QID PRN WHEEZING 06/12/23 10/26/23 (2.5 mg base)/3 mL nebulization soln gabapentin 600 mg tablet 600 mg PO BEDTIME 06/21/23 10/26/23 clonazepam 2 mg tablet 2 mg PO DAILY PRN Anxiety 10/26/23 10/26/23 fluticasone propionate 50 1 spray intranasal Q12H PRN 10/26/23 10/26/23 mcg/actuation nasal Allergy Symptoms spray,suspension fluvoxamine 100 mg tablet 100 mg PO BEDTIME 10/26/23 10/26/23 methadone 10 mg/mL oral concentrate 20 mg PO QPM 10/26/23 10/26/23 methadone 10 mg/mL oral concentrate 60 mg PO QAM 10/26/23 10/26/23 promethazine 12.5 mg tablet 12.5 mg PO BID nausea 10/26/23 10/26/23 Previous Rx's ?Medication ?Instructions ?Recorded ipratropium 0.5 mg-albuterol 3 mg 3 ml inhalation RQ4H WHILE AWAKE 10/27/23 (2.5 mg base)/3 mL nebulization #180 mL soln prednisone 20 mg tablet 20 mg PO DAILY #7 tabs 10/27/23 albuterol sulfate 2.5 mg/3 mL 2.5 mg (3 mL) inhalation Q6H #75 mL 10/31/23 (0.083 %) solution for nebulization albuterol sulfate 90 mcg/actuation 2 inh inhalation Q4-6H PRN 10/31/23 breath activated powder inhaler shortness of breath or wheezing #1 ea azithromycin 250 mg tablet See Rx Instructions PO .COMPLEX #6 10/31/23 tabs prednisone 50 mg tablet 50 mg PO DAILY 5 days #5 tabs 10/31/23 cefuroxime axetil 250 mg tablet 250 mg PO BID 7 days #14 tabs 11/25/23 amoxicillin 875 mg-potassium 1 tab PO BID #14 tabs 04/10/24 clavulanate 125 mg tablet prednisone 10 mg tablet 10 mg PO DIRECTED #41 tabs 04/10/24 promethazine 25 mg tablet 25 mg PO TID PRN nausea and 04/10/24 vomiting #20 tabs clonazepam 2 mg tablet 2 mg PO TID #21 tabs 06/11/24 oxycodone 5 mg tablet 5 mg PO Q6H PRN severe pain (scale 06/11/24 score 7-10) #12 tabs promethazine 12.5 mg tablet 12.5 mg PO BID #21 tabs 06/11/24 promethazine 12.5 mg tablet 12.5 mg PO TID PRN nausea and 06/11/24 vomiting #21 tabs azithromycin 250 mg tablet See Rx Instructions PO .COMPLEX #6 07/04/24 tabs prednisone 20 mg tablet 40 mg (2 x 20 mg) PO DAILY #10 tabs 07/04/24 cephalexin 500 mg capsule 500 mg PO QID 7 days #28 caps 09/13/24 doxycycline hyclate 100 mg capsule 100 mg PO BID 7 days #14 caps 09/13/24 Allergies Allergy/AdvReac Type Severity Reaction Status Date / Time latex [LATEX] Allergy Intermediate RASH Verified 09/13/24 15:18 ondansetron [From Zofran] Allergy Intermediate Shortness Verified 09/13/24 15:18 of Breath propranolol Allergy Intermediate Shortness Verified 09/13/24 15:18 of Breath acetaminophen Allergy Difficulty Verified 09/13/24 15:18 Breathing adhesive tape [ADHESIVE TAPE] AdvReac Intermediate RASH Verified 09/13/24 15:18 Review of Systems Review of Systems: Yes all other systems are reviewed and are negative PMFSH Past Medical History Medical History Mood disorder Polysubstance abuse Pneumonitis Asthma Asthma Pneumonia due to COVID-19 virus COVID-19 Bipolar disorder PTSD (post-traumatic stress disorder) Depression Anxiety Asthma GERD (gastroesophageal reflux disease) Crohn's disease Opioid use disorder Family History Family History Father Colon cancer Mother No problems noted. Brother Autism Sister Bipolar disorder Maternal Aunt Breast cancer Social History Social History Household Members: None Housing: Apartment Housing Other:: motel Do you presently have visiting nurse or other home services: No Unable to assess alcohol history related to: Unknown Alcohol intake: never Patient Tobacco Use Status: Former Tobacco user Cigarette Packs Per Day: 0.33 Cigarettes Per Day: 6.6 Years Smoked: 9 e-Cigarette/Vaping Use: Former Use Second Hand Smoke Exposure: Yes Substance Use Type: Heroin Advance Directives: Yes Advance Directives on File: Yes Advance Directives Date on File: 05/07/21 Do you have a plan to hurt others: No Plan service: No Current occupational status: unemployed Cognitive needs: No Hearing needs: No Vision needs: No Physical Exam Vital Signs: Vital Signs: Last Vital Signs Temp 97.5 F 09/13/24 15:50 Pulse 87 09/13/24 15:50 Resp 18 09/13/24 15:50 BP 101/67 09/13/24 15:50 Pulse Ox 97 09/13/24 15:50 O2 Del Method Room Air 09/13/24 15:50 BMI result Body Mass Index 18.6 Const: Other: General: Awake, alert, and oriented X3. No acute distress. HEENT: Normal inspection CVS: Normal heart rate and rhythm. Pulses normal. Respiratory: No respiratory distress Skin: Warm, dry, no rashes noted to exposed skin. Normal skin color. Normal skin turgor. Extremities: Right wrist, dorsal aspect, there is a 2 x 2 cm area of induration and fluctuance, erythematous and warm. Full ROM of the wrist without difficulty. Strong radial pulse. No lymphangitic spread Neuro: Oriented X 3. No motor deficit. No sensory deficit. Medical Decision Making Medical Decision Making MDM Narrative: This is a 29-year-old female who presents emergency department with complaints of right wrist pain, swelling. On arrival, vital signs within normal limits. She is speaking in full sentences under no acute distress. Patient has abscess noted to the dorsum of her right wrist that needs incision and drainage. She states that she is unable to stay for this procedure as she has an appointment. Discussed that we can treat her with antibiotics however she may need to return to have this excised. She understands. Discharged with doxycycline and Keflex. Her tetanus is up-to-date. Patient stable for discharge. Differential Diagnosis Differential Diagnoses: The differential diagnosis associated with the presentation includes Abscess, cellulitis, cyst, ganglion cyst Discharge Plan Discharge Clinical Impression: Abscess, Cellulitis Patient Disposition: Home, Self-Care Instructions: Cellulitis (ED), Abscess (ED) Additional Instructions: You were seen in the emergency department for a bump on your wrist. This is a abscess. This needs to be treated with antibiotics. I am putting you on 2 different types of antibiotics. Please take full course even if your symptoms improve. Warm compresses 5-6 times per day. If any new or worsening symptoms occur including but not limited to worsening redness, swelling, fevers not responding to Tylenol or Motrin, please seek emergent care. Prescriptions: New doxycycline hyclate 100 mg capsule 100 mg PO BID 7 Days Qty: 14 0RF cephalexin 500 mg capsule 500 mg PO QID 7 Days Qty: 28 0RF No Action clonidine HCl 0.1 mg tablet 0.1 mg PO TID PRN (Reason: ANXIETY ) fluticasone propion-salmeterol [Advair Diskus] 500-50 mcg/dose blister with device 1 ea INHALATION BID PRN (Reason: Shortness Of Breath Or Wheezing) albuterol sulfate [Ventolin HFA] 90 mcg/actuation HFA aerosol inhaler 2 puff inhalation Q6H PRN (Reason: wheezing) clonazepam 2 mg Tablet 2 mg PO BID ipratropium-albuterol 0.5 mg-3 mg(2.5 mg base)/3 mL solution for nebulization 3 ml inhalation QID PRN (Reason: WHEEZING ) gabapentin 600 mg tablet 600 mg PO BEDTIME cefuroxime axetil 250 mg tablet 250 mg PO BID 7 Days Qty: 14 0RF oxycodone 5 mg tablet 5 mg PO Q6H PRN (Reason: severe pain (scale score 7-10)) Qty: 12 0RF Rx Instructions: Partial Fill upon patient request. promethazine 12.5 mg tablet 12.5 mg PO TID PRN (Reason: nausea and vomiting) Qty: 21 0RF clonazepam 2 mg tablet 2 mg PO TID Qty: 21 0RF promethazine 12.5 mg tablet 12.5 mg PO BID Qty: 21 0RF promethazine 12.5 mg tablet 12.5 mg PO BID fluvoxamine 100 mg tablet 100 mg PO BEDTIME clonazepam 2 mg tablet 2 mg PO DAILY PRN (Reason: Anxiety) methadone 10 mg/mL Concentrate 60 mg PO QAM methadone 10 mg/mL Concentrate 20 mg PO QPM fluticasone propionate 50 mcg/actuation spray,suspension 1 spray intranasal Q12H PRN (Reason: Allergy Symptoms) Rx Instructions: administer into each nostril ipratropium-albuterol 0.5 mg-3 mg(2.5 mg base)/3 mL Solution For Nebulization 3 ml inhalation RQ4H WHILE AWAKE Qty: 180 0RF Rx Instructions: Use DuoNeb updraft every 4 hours while awake x2 days then as needed prednisone 20 mg tablet 20 mg PO DAILY Qty: 7 0RF Rx Instructions: Take with food albuterol sulfate 2.5 mg /3 mL (0.083 %) solution for nebulization 2.5 mg inhalation Q6H Qty: 75 0RF albuterol sulfate 90 mcg/actuation aerosol powdr breath activated 2 inh inhalation Q4-6H PRN (Reason: shortness of breath or wheezing) Qty: 1 0 RF azithromycin 250 mg tablet See Rx Instructions .ROUTE .COMPLEX Qty: 6 0RF Rx Instructions: For 250 mg dose pack: take 500 mg today (day 1), then 250 mg for 4 days (days 2-5) prednisone 50 mg tablet 50 mg PO DAILY 5 Days Qty: 5 0RF amoxicillin-pot clavulanate 875-125 mg tablet 1 tab PO BID Qty: 14 0RF promethazine 25 mg tablet 25 mg PO TID PRN (Reason: nausea and vomiting) Qty: 20 0RF prednisone 10 mg tablet 10 mg PO DIRECTED Qty: 41 0RF Rx Instructions: see taper instructions 60mg on day 1-5, 40mg on day 6, 30mg on day 7, 20mg on day 8, 10mg on day 9, 5mg on day 10 azithromycin 250 mg tablet See Rx Instructions .ROUTE .COMPLEX Qty: 6 0RF Rx Instructions: For 250 mg dose pack: take 500 mg today (day 1), then 250 mg for 4 days (days 2-5) prednisone 20 mg tablet 40 mg PO DAILY Qty: 10 0RF Interventions: ED Discharge Assessment Last Done: 09/13/24 15:50 Discharge Date/Time: 09/13/24 15:50 Print Language: Citizen [place]
[2024-09-13 15:50] VITALS: BP 101/67; PULSE 87; RESP 18; TEMP 36.4; O2SAT 97
== END 2024-09-13 15:50 | disposition home or self-care (01) ==
PROVIDERS: Emergency Provider Emergency Medicine Emergency Medical Services; PCP Student in an Organized Health Care Education/Training Program
DX: L03.113 Cellulitis of right upper limb (principal); M25.431 Effusion, right wrist; Z79.899 Other long term (current) drug therapy
CPT/HCPCS: 99282; 99283

== ENCOUNTER 2024-11-15 19:28 | Emergency (ER) | payer MEDICAID, SELFPAY ==
--- NOTE | ~2024-11-15 | XR_ITS ---
CLINICAL HISTORY: fall 3 view, pelvis and left hip Comparison: None Findings: No acute fracture or dislocation. No significant arthritic change. The soft tissues are unremarkable. IMPRESSION: No acute findings. This document has been electronically signed by: Michael Griffiths MD on 11/15/2024 22:17:58
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
--- NOTE | ~2024-11-15 | XR_ITS ---
CLINICAL HISTORY: fall 3 view left hand Comparison: None Findings: Bones intact. No dislocations. No significant loss of joint space or osteophytes. No erosions. No radiopaque foreign body. IMPRESSION: 1. No acute findings This document has been electronically signed by: Michael Griffiths MD on 11/15/2024 22:17:22
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
[2024-11-15 19:28] VITALS: BP 131/89; PULSE 126; O2SAT 96
[2024-11-15 19:41] VITALS: BP 150/88; PULSE 118; RESP 16; TEMP 37.5; O2SAT 98; BMI 18.9
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
[2024-11-15 22:16] VITALS: BP 142/84; PULSE 98; RESP 17; TEMP 37.2; O2SAT 97
[2024-11-15 22:35] LABS: UPreg QC Valid YES; Urine Pregnancy NEGATIVE (NEGATIVE)
[2024-11-15 22:55] LABS: Appearance Urine Turbid; Color Urine Yellow; Glucose Urine UA Negative (Negative); Leukocyte Esterase Urine Small (1+) (Negative); Nitrite Urine Negative (Negative); Specific Gravity - Urine 1.025 (1.005-1.025); UMIC TRIGGER UACC YES; Urine Blood Small (1+) (Negative); Urine Ketones Trace mg/dL (Negative); Urine Protein 100 (2+) mg/dL (Neg-Trace)
[2024-11-15] MEDS: clonazePAM 1 MG TABLET 2 MG PO (22:58)
[2024-11-15 23:20] LABS: Bacteria Urine 4+ (None Seen); Hyaline Casts Urine >20 /LPF (0-2); Other Crystals Urine Present; RBC Urine 0-2 /HPF (0-2); UACC Culture Trigger YES; WBC Urine 0-5 /HPF (0-5)
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
[2024-11-16 01:04] VITALS: BP 144/89; PULSE 98; RESP 18; TEMP 37.1; O2SAT 98
== END 2024-11-16 01:05 | disposition home or self-care (01) ==
PROVIDERS: Emergency Provider Emergency Medicine
DX: S02.642A Fracture of ramus of left mandible, initial encounter for closed fracture (principal); S60.512A Abrasion of left hand, initial encounter; M79.642 Pain in left hand; F11.10 Opioid abuse, uncomplicated; F41.9 Anxiety disorder, unspecified; F43.10 Post-traumatic stress disorder, unspecified; J32.0 Chronic maxillary sinusitis; R10.2 Pelvic and perineal pain; Y04.2XXA Assault by strike against or bumped into by another person, initial encounter; Y93.89 Activity, other specified; Y92.89 Other specified places as the place of occurrence of the external cause; Y99.8 Other external cause status; Z87.891 Personal history of nicotine dependence; Z79.899 Other long term (current) drug therapy; Z23 Encounter for immunization
CPT/HCPCS: 70450; 70486; 73130; 73502; 81001; 81025; 87086; 87088; 87186; 99284

== ENCOUNTER → 2024-11-15 21:21 | Outpatient (BNV) | payer MEDICAID, SELFPAY | PROVIDERS: Emergency Provider Emergency Medicine; Visit Provider Student in an Organized Health Care Education/Training Program | DX: S09.93XA Unspecified injury of face, initial encounter (principal); S09.90XA Unspecified injury of head, initial encounter; M25.552 Pain in left hip; M79.642 Pain in left hand | CPT/HCPCS: 70450; 70486; 73130; 73502 ==

== ENCOUNTER 2024-11-23 22:28 | Emergency (ER) | payer MEDICAID, SELFPAY ==
[2024-11-23 22:34] VITALS: BP 131/93; PULSE 117; RESP 18; TEMP 36.6; O2SAT 99; BMI 18.3
== END 2024-11-24 01:37 | disposition left against medical advice (07) ==
PROVIDERS: Emergency Provider Emergency Medicine
DX: R68.84 Jaw pain (principal)
CPT/HCPCS: 99281

== ENCOUNTER 2025-01-15 11:25 | Emergency (ER) | payer MEDICAID, SELFPAY ==
[2025-01-15] VITALS (12 sets, daily range): BP systolic 119–131; BP diastolic 70–93; PULSE 95–122; RESP 10–60; TEMP 36.7–36.8; O2SAT 65–100; BMI 16.8
--- NOTE | ~2025-01-15 | XR_ITS ---
CLINICAL HISTORY: hypoxia --- Additional Notes or Special Instructions: check pt @ 1445 DG, pt not re yassine check back @ 1530 DG Chest Radiographs, AP Comparison: 04/10/24 Findings: No cardiomegaly. Normal mediastinal contours. No pneumothorax. No opacity. No pleural effusion. Normal upper abdomen. No acute fracture. Impression: No acute findings. This document has been electronically signed by: Jessica Solis MD on 01/15/2025 17:26:26
[2025-01-15] MEDS: Naloxone HCl Nasal 4 MG SPRAY NOSTRILALT (11:36)
[2025-01-15] MEDS: levalbuterol HCL 5 MG, Ipratropium Bromide 0.5 MG INHALE ×2 (11:37→11:50)
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
--- NOTE | 2025-01-15 11:44 | ED_ITS ---
HPI - General Adult General Chief complaint: General Medical Stated complaint: sob diff breathing lung issues fever Time Seen by Provider: 01/15/25 11:38 Source: patient, RN notes reviewed and other (boyfriend) Mode of arrival: wheelchair Limitations: no limitations History of Present Illness ED Provider: Heriberto HPI narrative: 29-year-old female with a past medical history significant for asthma, substance abuse, PTSD presents for evaluation of shortness of breath and fevers. The patient was wheeled into triage by her boyfriend. The boyfriend reports the patient has been sick since yesterday. In triage, the patient's oxygen saturation was 65% on room air, her respiratory rate was 8 to 10 in her heart rate was 118. She was brought straight back to room 4 Respiratory was called, the patient was given nebulizer, Solu-Medrol, magnesium and Narcan 4 mg intranasally Related Data Home Medications ?Medication ?Instructions ?Recorded ?Confirmed clonidine HCl 0.1 mg tablet 0.1 mg PO TID PRN ANXIETY 02/18/23 10/26/23 albuterol sulfate 90 mcg/actuation 2 puff inhalation Q6H PRN wheezing 06/12/23 10/26/23 aerosol inhaler (Ventolin HFA) clonazepam 2 mg tablet 2 mg PO BID Anxiety 06/12/23 10/26/23 fluticasone 500 mcg-salmeterol 50 1 ea inhalation BID PRN Shortness 06/12/23 10/26/23 mcg/dose blistr powdr for Of Breath Or Wheezing inhalation (Advair Diskus) ipratropium 0.5 mg-albuterol 3 mg 3 ml inhalation QID PRN WHEEZING 06/12/23 10/26/23 (2.5 mg base)/3 mL nebulization soln gabapentin 600 mg tablet 600 mg PO BEDTIME 06/21/23 10/26/23 clonazepam 2 mg tablet 2 mg PO DAILY PRN Anxiety 10/26/23 10/26/23 fluticasone propionate 50 1 spray intranasal Q12H PRN 10/26/23 10/26/23 mcg/actuation nasal Allergy Symptoms spray,suspension fluvoxamine 100 mg tablet 100 mg PO BEDTIME 10/26/23 10/26/23 methadone 10 mg/mL oral concentrate 20 mg PO QPM 10/26/23 10/26/23 methadone 10 mg/mL oral concentrate 60 mg PO QAM 10/26/23 10/26/23 promethazine 12.5 mg tablet 12.5 mg PO BID nausea 10/26/23 10/26/23 Previous Rx's ?Medication ?Instructions ?Recorded ipratropium 0.5 mg-albuterol 3 mg 3 ml inhalation RQ4H WHILE AWAKE 10/27/23 (2.5 mg base)/3 mL nebulization #180 mL soln prednisone 20 mg tablet 20 mg PO DAILY #7 tabs 10/27/23 albuterol sulfate 2.5 mg/3 mL 2.5 mg (3 mL) inhalation Q6H #75 mL 10/31/23 (0.083 %) solution for nebulization albuterol sulfate 90 mcg/actuation 2 inh inhalation Q4-6H PRN 10/31/23 breath activated powder inhaler shortness of breath or wheezing #1 ea azithromycin 250 mg tablet See Rx Instructions PO .COMPLEX #6 10/31/23 tabs prednisone 50 mg tablet 50 mg PO DAILY 5 days #5 tabs 10/31/23 cefuroxime axetil 250 mg tablet 250 mg PO BID 7 days #14 tabs 11/25/23 amoxicillin 875 mg-potassium 1 tab PO BID #14 tabs 04/10/24 clavulanate 125 mg tablet prednisone 10 mg tablet 10 mg PO DIRECTED #41 tabs 04/10/24 promethazine 25 mg tablet 25 mg PO TID PRN nausea and 04/10/24 vomiting #20 tabs clonazepam 2 mg tablet 2 mg PO TID #21 tabs 06/11/24 oxycodone 5 mg tablet 5 mg PO Q6H PRN severe pain (scale 06/11/24 score 7-10) #12 tabs promethazine 12.5 mg tablet 12.5 mg PO BID #21 tabs 06/11/24 promethazine 12.5 mg tablet 12.5 mg PO TID PRN nausea and 06/11/24 vomiting #21 tabs azithromycin 250 mg tablet See Rx Instructions PO .COMPLEX #6 07/04/24 tabs prednisone 20 mg tablet 40 mg (2 x 20 mg) PO DAILY #10 tabs 07/04/24 cephalexin 500 mg capsule 500 mg PO QID 7 days #28 caps 09/13/24 doxycycline hyclate 100 mg capsule 100 mg PO BID 7 days #14 caps 09/13/24 clonazepam 2 mg tablet 2 mg PO BID #6 tabs 11/15/24 ciprofloxacin HCl 500 mg tablet 500 mg PO BID 7 days #14 tabs 11/21/24 albuterol sulfate 90 mcg/actuation 2 puff inhalation Q4-6H PRN 01/15/25 aerosol inhaler shortness of breath or wheezing #8.5 grams prednisone 20 mg tablet 40 mg (2 x 20 mg) PO DAILY #10 tabs 01/15/25 Allergies Allergy/AdvReac Type Severity Reaction Status Date / Time latex [LATEX] Allergy Intermediate RASH Verified 01/15/25 11:55 ondansetron [From Zofran] Allergy Intermediate Shortness Verified 01/15/25 11:55 of Breath propranolol Allergy Intermediate Shortness Verified 01/15/25 11:55 of Breath acetaminophen Allergy Difficulty Verified 01/15/25 11:55 Breathing adhesive tape [ADHESIVE TAPE] AdvReac Intermediate RASH Verified 01/15/25 11:55 Review of Systems 2 Constitutional: Constitutional: Reports body ache(s), Reports chills, Reports fever(s), Denies headache(s), Reports malaise and Reports weakness Eyes: Eyes: Denies blurry vision and Denies exophthalmos ENT: Denies vertigo, Denies dizziness and Denies headache(s) Cardiovascular: Cardiovascular: Denies chest pain, Denies chest pain at rest and Reports dyspnea Respiratory: Respiratory: Reports cough, Reports dyspnea and Reports wheezing Gastrointestinal: Gastrointestinal: Denies abdominal pain, Denies nausea and Denies vomiting Musculoskeletal: Musculoskeletal: Denies back pain Integumentary/Breasts: Skin/Breast: Reports unusual bruising Neurologic: Denies vertigo, Denies dizziness, Denies headache(s) and Reports weakness Allergic/Immunologic: Allergic/Immunologic: Reports wheezing PMFSH Past Medical History Medical History Mood disorder Polysubstance abuse Pneumonitis Asthma Asthma Pneumonia due to COVID-19 virus COVID-19 Bipolar disorder PTSD (post-traumatic stress disorder) Depression Anxiety Asthma GERD (gastroesophageal reflux disease) Crohn's disease Opioid use disorder Family History Family History Father Colon cancer Mother No problems noted. Brother Autism Sister Bipolar disorder Maternal Aunt Breast cancer Social History Social History Household Members: None Housing: Apartment Housing Other:: motel Do you presently have visiting nurse or other home services: No Unable to assess alcohol history related to: Unknown Alcohol intake: never Patient Tobacco Use Status: Former Tobacco user Cigarette Packs Per Day: 0.33 Cigarettes Per Day: 6.6 Years Smoked: 9 Smoked in Last 30 Days: Yes e-Cigarette/Vaping Use: Former Use Second Hand Smoke Exposure: Yes Use of substances other than those prescribed or required for medical reasons: Yes Substance Use Type: Opiates Substance Use Frequency: Chronic Longstanding Last Used Substance: Just Prior to Admission Any prior treatment program specific to substance use: No Advance Directives: Yes Advance Directives on File: Yes Advance Directives Date on File: 05/07/21 Do you have a plan to hurt others: No Plan Patient : No service: No Current occupational status: unemployed Cognitive needs: No Hearing needs: No Vision needs: No Physical Exam ED Vital Signs: Vital Signs - 24 hr 01/15/25 11:25 01/15/25 11:40 01/15/25 11:43 Temperature Pulse Rate 118 H 112 H Respiratory Rate 10 L 24 H Blood Pressure Pulse Oximetry 65 L 100 Oxygen Delivery Method Non-Rebreather Mask Oxygen Flow Rate 15 01/15/25 11:51 01/15/25 11:53 01/15/25 12:59 Temperature Pulse Rate 112 H 122 H 119 H Respiratory Rate 24 H 32 H 60 H Blood Pressure 131/70 Pulse Oximetry 95 95 Oxygen Delivery Method Non-Rebreather Mask Nasal Cannula Oxygen Flow Rate 3 01/15/25 12:59 01/15/25 13:31 01/15/25 14:06 Temperature Pulse Rate 111 H 108 H Respiratory Rate 60 H 33 H 40 H Blood Pressure 123/74 119/87 Pulse Oximetry 94 95 Oxygen Delivery Method Nasal Cannula Nasal Cannula Oxygen Flow Rate 3 3 01/15/25 14:36 01/15/25 15:50 01/15/25 16:37 Temperature 98.2 F 98.2 F Pulse Rate 106 H 95 Respiratory Rate 30 H 24 H Blood Pressure 127/93 H 131/85 Pulse Oximetry 92 99 89 L Oxygen Delivery Method Nasal Cannula Nasal Cannula Room Air Oxygen Flow Rate 3 3 01/15/25 16:40 Temperature 98.0 F Pulse Rate 96 Respiratory Rate 25 H Blood Pressure 131/85 Pulse Oximetry 89 L Oxygen Delivery Method Room Air Oxygen Flow Rate BMI result Body Mass Index 16.8 HENMT Head: Yes normocephalic and Yes atraumatic Eyes Eyelids: Yes eyelids normal Conjunctivae: conjunctivae normal Sclerae: sclerae normal Corneas: corneas normal EOM: EOMs intact bilaterally Neck Neck: Yes full ROM Resp Effort & Inspection: abnormal respiratory effort, not able to speak in complete sentences, audible wheezes, labored, nasal flaring and respiratory distress Auscultation: not clear to auscultation bilaterally, wheezes and bronchial breath sounds GI Inspection: No distended Palpation (GI): Soft to palpation, not firm, nontender, no guarding and not rigid Skin Other: Neuro Cranial nerves: Yes Bilaterally intact EOM present Cognition (Neuro): normal cognition Extrem Other: Moving all extremities well without any obvious deformities Course Reevaluation(s) Reevaluation #1: The patient is much more awake, alert after receiving 4 mg of intranasal Narcan. The patient denies any recent substance abuse. She reports that she ran out of her albuterol inhaler a few weeks ago and has had increased shortness of breath and wheezing since that time. She reports fevers in his unsure how long she has had them Time: 11:44 Reevaluation #2: The patient reported to nursing staff that she use fentanyl last night in his now complaining of withdrawal. In his likely that she was put into a withdrawal status from the Narcan, however she was in respiratory distress and was breathing at only 10 breaths per minute. She has an allergy to Zofran, I ordered Reglan and Benadryl IV. Time: 12:02 Reevaluation #3: Cows score of 26, patient will be given Suboxone 8-2mg. She may require additional dosing, we will see how she tolerates the initial dose. Time: 12:51 Additional Reevaluation(s): Patient reports feeling slightly better after suboxone. We will administer an additional dose of suboxone 13:40 Patient's tacypnea improving with suboxone. She is also still wheezing. Will continue to follow closely 14:40 Patient remains quite agitated, restless. She is requesting Klonopin which she takes at home. Will treat with Diazepam 5mg IV due to lorazepam shortage 16:15 I went to re-evaluate the patient again, she is requesting ?discharge papers. ? The patient is still very tachypneic and using accessory muscles, I do not feel that she is safe for discharge. Per nursing, the patient walks the bathroom and was complaining of lightheadedness. The patient reports that she is awake, alert and oriented x4. I informed the patient that I would like to admit the patient for acute on chronic respiratory failure as well as opiate withdrawal. The patient is unwilling to state why she wants to leave, but given that she is alert and oriented I do not see any indication to hold her against her will. She repeats back to me that she understands that she can get sicker and even if untreated. She still wishes to leave against medical advice. Medications Administered Discontinued Medications Generic Name Dose Route Start Last Admin Trade Name Tomiq PRN Reason Stop Dose Admin Buprenorphine/Naloxone 1 film 01/15/25 12:46 01/15/25 13:03 Buprenorphine/Naloxone 8/2 Mg Film SUBLINGUAL 01/15/25 12:47 1 film ONCE ONE Administration Buprenorphine/Naloxone 1 film 01/15/25 13:14 01/15/25 13:36 Buprenorphine/Naloxone 8/2 Mg Film SUBLINGUAL 01/15/25 13:15 1 film ONCE ONE Administration Levalbuterol HCl 5 mg/ 0 mg 01/15/25 11:32 01/15/25 11:37 Ipratropium [place] 0.5 mg INHALE 01/15/25 11:33 1 dose ONCE ONE Administration Levalbuterol HCl 5 mg/ 0 mg 01/15/25 11:48 01/15/25 11:50 Ipratropium [place] 0.5 mg INHALE 01/15/25 11:49 1 dose ONCE ONE Administration Diazepam 5 mg 01/15/25 14:38 01/15/25 15:05 Diazepam 10 Mg/2 Ml [place] IVPUSH 01/15/25 14:39 5 mg STAT STA Administration Diphenhydramine HCl 25 mg 01/15/25 11:55 01/15/25 12:10 Diphenhydramine Hcl 50 Mg/Ml Vial IVPUSH 01/15/25 11:56 25 mg ONCE ONE Administration Droperidol 1.25 mg 01/15/25 15:39 01/15/25 15:51 Droperidol 5 Mg/2 Ml Vial IVPUSH 01/15/25 15:40 1.25 mg ONCE ONE Administration Magnesium Sulfate 2 gm in 50 mls @ 150 mls/hr 01/15/25 11:36 01/15/25 12:10 Magnesium Sulfate/H2o IV 01/15/25 11:55 Infused ONCE ONE Infusion Sodium Chloride 1,000 mls @ 999 mls/hr 01/15/25 12:00 01/15/25 14:06 Ns IV 01/15/25 13:00 Infused .Q1H1M SHEILA Infusion Methylprednisolone Sodium Succinate 125 mg 01/15/25 11:36 01/15/25 11:45 Methylprednisolone Sod Succ 125 Mg Vial IVPUSH 01/15/25 11:37 125 mg ONCE ONE Administration Metoclopramide HCl 10 mg 01/15/25 11:55 01/15/25 12:10 Metoclopramide Hcl 10 Mg/2 Ml Vial IVPUSH 01/15/25 11:56 10 mg ONCE ONE Administration Naloxone HCl 4 mg 01/15/25 11:36 01/15/25 11:36 Naloxone Hcl Nasal 4 Mg [place] NOSTRILALT 01/15/25 11:37 4 mg ONCE ONE Administration Medical Decision Making Medical Decision Making [facility] Narrative: 29-year-old female presents for evaluation of shortness of breath. The patient was minimally responsive on arrival. She awakened with a in a few minutes to receiving the Narcan. She had labs, blood cultures drawn. The patient does appear to have track randall to her left upper arm. She denies any recent substance abuse in the last few weeks including today. Her oxygen saturation improved to 95% on non-rebreather. Her respiratory rate improved to 20. Labs, chest x-ray pending. Differential Diagnosis Differential Diagnoses: The differential diagnosis associated with the presentation includes Respiratory distress Substance abuse Pneumonia Asthma exacerbation Hypoxia Admission/Observation Consideration of admission/observation: Escalation of care including admission/observation considered Lab Data [facility] Lab Attestation statement: I reviewed the patient's lab results. No leukocytosis or significant anemia. Normal platelet count. No significant electrolyte abnormalities. Renal function within normal limits. 01/15/25 12:08 01/15/25 12:08 Labs: Lab Results 05/24/25 05/24/25 05/24/25 Range/Units 12:08 12:13 13:02 WBC 7.7 (4.8-10.8) X10*3/uL RBC 3.95 L (4.20-5.50) X10*6/uL Hgb 12.0 (12.0-16.0) g/dl Hct 35.7 L (37.0-47.0) % MCV 90.4 (80.0-98.0) fL MCH 30.4 (27.0-33.0) pg MCHC 33.6 (31.0-35.0) g/dl RDW 12.9 (11.0-16.0) % Plt Count 200 (160-400) X10*3/uL MPV 9.6 (9.4-12.3) fL Immature Gran % (Auto) 0.1 (0.0-0.4) % Neut % (Auto) 54.0 (45-73) % Lymph % (Auto) 29.3 (20-40) % [place] % (Auto) 10.1 (2-11) % Eos % (Auto) 6.1 H (0-4) % Baso % (Auto) 0.4 (0-2) % Lymph # (Auto) 2.3 (1.2-4.9) X10*3/uL [place] # (Auto) 0.8 (0.1-1.2) X10*3/uL Eos # (Auto) 0.5 H (0.0-0.4) X10*3/uL Baso # (Auto) 0.0 (0.0-0.2) X10*3/uL Abs Immat Gran (auto) 0.01 (0.00-0.03) X10*3/uL Absolute Neuts (auto) 4.2 (2.0-8.3) x10*3/uL Absolute Nucleated RBC 0.000 (0.0-0.012) X10*3/uL Nucleated RBC % (auto) 0.0 (0.0-0.2) /100WBC Sodium 140 (135-145) mmol/L Potassium 4.4 (3.3-5.1) mmol/L Chloride 103 (96-108) mmol/L Carbon Dioxide 28 (22-29) mmol/L Anion Gap 13 (12-20) BUN 12 (9-16) mg/dL Creatinine 0.55 (0.5-1.4) mg/dL Estim Creat Clear Calc 114.2 Estimated GFR > 60 POC Glucose (60-115) mg/dL Random Glucose 116 H (60-115) mg/dL Lactic Acid 0.8 (0.5-2.0) mmol/L Calcium 8.7 D (8.4-10.2) mg/dL Magnesium 2.1 (1.6-2.6) mg/dL Total Bilirubin 0.5 (0.0-1.0) mg/dL AST 49 H (5-31) U/L ALT 54 H (0-31) U/L Alkaline Phosphatase 60 (39-117) U/L Troponin I High Sens < 2.7 (<3.5-17.0) ng/L Total Protein 6.9 (6.5-8.0) g/dL Albumin 4.1 (3.5-5.0) g/dL Lipase 16 (8-78) U/L Beta HCG, Quant < 2 mIU/mL Urine Opiates Screen POSITIVE H (Not Detect) Ur Buprenorphine Scrn Not Detected (Not Detect) ng/mL Ur Oxycodone Screen Not Detected (Not Detect) ng/mL Urine Methadone Screen Not Detected (Not Detect) ng/mL Urine Fentanyl Screen POSITIVE H (Not Detect) Ur Barbiturates Screen Not Detected (Not Detect) Ur Phencyclidine Scrn Not Detected (Not Detect) Ur Amphetamines Screen Not Detected (Not Detect) U Benzodiazepines Scrn POSITIVE H (Not Detect) Urine Cocaine Screen POSITIVE H (Not Detect) U Marijuana (THC) Screen Not Detected (Not Detect) Influenza Type A (PCR) NEGATIVE (Negative) Influenza Type B (PCR) NEGATIVE (Negative) RSV RNA Qual (PCR) NEGATIVE (Negative) SARS-CoV-2 RNA (RT-PCR) NEGATIVE (Negative) 01/15/25 Range/Units 15:49 WBC (4.8-10.8) X10*3/uL RBC (4.20-5.50) X10*6/uL Hgb (12.0-16.0) g/dl Hct (37.0-47.0) % MCV (80.0-98.0) fL MCH (27.0-33.0) pg MCHC (31.0-35.0) g/dl RDW (11.0-16.0) % Plt Count (160-400) X10*3/uL MPV (9.4-12.3) fL Immature Gran % (Auto) (0.0-0.4) % Neut % (Auto) (45-73) % Lymph % (Auto) (20-40) % [place] % (Auto) (2-11) % Eos % (Auto) (0-4) % Baso % (Auto) (0-2) % Lymph # (Auto) (1.2-4.9) X10*3/uL [place] # (Auto) (0.1-1.2) X10*3/uL Eos # (Auto) (0.0-0.4) X10*3/uL Baso # (Auto) (0.0-0.2) X10*3/uL Abs Immat Gran (auto) (0.00-0.03) X10*3/uL Absolute Neuts (auto) (2.0-8.3) x10*3/uL Absolute Nucleated RBC (0.0-0.012) X10*3/uL Nucleated RBC % (auto) (0.0-0.2) /100WBC Sodium (135-145) mmol/L Potassium (3.3-5.1) mmol/L Chloride (96-108) mmol/L Carbon Dioxide (22-29) mmol/L Anion Gap (12-20) BUN (9-16) mg/dL Creatinine (0.5-1.4) mg/dL Estim Creat Clear Calc Estimated GFR POC Glucose 137 H (60-115) mg/dL Random Glucose (60-115) mg/dL Lactic Acid (0.5-2.0) mmol/L Calcium (8.4-10.2) mg/dL Magnesium (1.6-2.6) mg/dL Total Bilirubin (0.0-1.0) mg/dL AST (5-31) U/L ALT (0-31) U/L Alkaline Phosphatase (39-117) U/L Troponin I High Sens (<3.5-17.0) ng/L Total Protein (6.5-8.0) g/dL Albumin (3.5-5.0) g/dL Lipase (8-78) U/L Beta HCG, Quant mIU/mL Urine Opiates Screen (Not Detect) Ur Buprenorphine Scrn (Not Detect) ng/mL Ur Oxycodone Screen (Not Detect) ng/mL Urine Methadone Screen (Not Detect) ng/mL Urine Fentanyl Screen (Not Detect) Ur Barbiturates Screen (Not Detect) Ur Phencyclidine Scrn (Not Detect) Ur Amphetamines Screen (Not Detect) U Benzodiazepines Scrn (Not Detect) Urine Cocaine Screen (Not Detect) U Marijuana (THC) Screen (Not Detect) Influenza Type A (PCR) (Negative) Influenza Type B (PCR) (Negative) RSV RNA Qual (PCR) (Negative) SARS-CoV-2 RNA (RT-PCR) (Negative) Independent Interpretation I performed an independent interpretation of an: EKG Interpretation: Sinus tachycardia rate of [address] segment elevation or depression. QTC of 421 Critical Care Time Critical Care Time Critical Care Time: Yes Total Critical Care Time: 75 Attestation: 29-year-old female presents for evaluation of acute respiratory failure in the setting of asthma and substance abuse. The patient responded well to Narcan, but she remained tachypneic, tachycardic and hypoxic on room air throughout her stay. She received multiple rounds of high-dose nebulizer treatments, steroids, magnesium, Narcan. She was then in opiate withdrawal with a cows score of 26 and required Suboxone, Valium, droperidol. I recommended admission to the patient but she ultimately left against medical advice. I had at least 3 separate discussions with her trying to convince her to stay in the hospital for further evaluation and management and the patient elected to leave against medical advice Discharge Plan Discharge Clinical Impression: Opioid use disorder, Hypoxia, Asthma Patient Disposition: Left Against Medical Advice Additional Instructions: You are electing to leave against medical advice. You reported that you understand the risks of leaving including and up to I did send a refill for your albuterol inhaler as well as some prednisone to your pharmacy Return to the ER as soon as possible for any new or worsening symptoms Prescriptions: New prednisone 20 mg tablet 40 mg PO DAILY Qty: 10 0RF albuterol sulfate 90 mcg/actuation HFA aerosol inhaler 2 puff inhalation Q4-6H PRN (Reason: shortness of breath or wheezing) Qty: 8.5 0RF No Action clonidine HCl 0.1 mg tablet 0.1 mg PO TID PRN (Reason: ANXIETY ) fluticasone propion-salmeterol [Advair Diskus] 500-50 mcg/dose blister with device 1 ea INHALATION BID PRN (Reason: Shortness Of Breath Or Wheezing) albuterol sulfate [Ventolin HFA] 90 mcg/actuation HFA aerosol inhaler 2 puff inhalation Q6H PRN (Reason: wheezing) clonazepam 2 mg Tablet 2 mg PO BID ipratropium-albuterol 0.5 mg-3 mg(2.5 mg base)/3 mL solution for nebulization 3 ml inhalation QID PRN (Reason: WHEEZING ) gabapentin 600 mg tablet 600 mg PO BEDTIME cefuroxime axetil 250 mg tablet 250 mg PO BID 7 Days Qty: 14 0RF oxycodone 5 mg tablet 5 mg PO Q6H PRN (Reason: severe pain (scale score 7-10)) Qty: 12 0RF Rx Instructions: Partial Fill upon patient request. promethazine 12.5 mg tablet 12.5 mg PO TID PRN (Reason: nausea and vomiting) Qty: 21 0RF clonazepam 2 mg tablet 2 mg PO TID Qty: 21 0RF promethazine 12.5 mg tablet 12.5 mg PO BID Qty: 21 0RF clonazepam 2 mg tablet 2 mg PO BID Qty: 6 0RF ciprofloxacin HCl 500 mg tablet 500 mg PO BID 7 Days Qty: 14 0RF promethazine 12.5 mg tablet 12.5 mg PO BID fluvoxamine 100 mg tablet 100 mg PO BEDTIME clonazepam 2 mg tablet 2 mg PO DAILY PRN (Reason: Anxiety) methadone 10 mg/mL Concentrate 60 mg PO QAM methadone 10 mg/mL Concentrate 20 mg PO QPM fluticasone propionate 50 mcg/actuation spray,suspension 1 spray intranasal Q12H PRN (Reason: Allergy Symptoms) Rx Instructions: administer into each nostril ipratropium-albuterol 0.5 mg-3 mg(2.5 mg base)/3 mL Solution For Nebulization 3 ml inhalation RQ4H WHILE AWAKE Qty: 180 0RF Rx Instructions: Use DuoNeb updraft every 4 hours while awake x2 days then as needed prednisone 20 mg tablet 20 mg PO DAILY Qty: 7 0RF Rx Instructions: Take with food albuterol sulfate 2.5 mg /3 mL (0.083 %) solution for nebulization 2.5 mg inhalation Q6H Qty: 75 0RF albuterol sulfate 90 mcg/actuation aerosol powdr breath activated 2 inh inhalation Q4-6H PRN (Reason: shortness of breath or wheezing) Qty: 1 0RF azithromycin 250 mg tablet See Rx Instructions .ROUTE .COMPLEX Qty: 6 0RF Rx Instructions: For 250 mg dose pack: take 500 mg today (day 1), then 250 mg for 4 days (days 2-5) prednisone 50 mg tablet 50 mg PO DAILY 5 Days Qty: 5 0RF amoxicillin-pot clavulanate 875-125 mg tablet 1 tab PO BID Qty: 14 0RF promethazine 25 mg tablet 25 mg PO TID PRN (Reason: nausea and vomiting) Qty: 20 0RF prednisone 10 mg tablet 10 mg PO DIRECTED Qty: 41 0RF Rx Instructions: see taper instructions 60mg on day 1-5, 40mg on day 6, 30mg on day 7, 20mg on day 8, 10mg on day 9, 5mg on day 10 azithromycin 250 mg tablet See Rx Instructions .ROUTE .COMPLEX Qty: 6 0RF Rx Instructions: For 250 mg dose pack: take 500 mg today (day 1), then 250 mg for 4 days (days 2-5) prednisone 20 mg tablet 40 mg PO DAILY Qty: 10 0RF doxycycline hyclate 100 mg capsule 100 mg PO BID 7 Days Qty: 14 0RF cephalexin 500 mg capsule 500 mg PO QID 7 Days Qty: 28 0RF Stand Alone Forms: Against Medical Advice Interventions: ED Discharge Assessment Last Done: 01/15/25 16:40 Discharge Date/Time: 01/15/25 16:43 Print Language: Guamanian
[2025-01-15] MEDS: Magnesium Sulfate/H2O 2 GM/50 ML PIGGYBACK IV (11:45)
[2025-01-15] MEDS: Metoclopramide HCl 10 MG/2 ML VIAL IVPUSH (12:10)
[2025-01-15] MEDS: diphenhydrAMINE HCL 50 MG/ML VIAL 25 MG IVPUSH (12:10)
[2025-01-15 12:15] LABS: MANUAL DIFF FLAG NO
[2025-01-15 12:16] LABS: Basophils Percent Auto 0.4 % (0-2); Eosinophils Absolute Auto 0.5 X10*3/uL (0.0-0.4); Eosinophils Percent Auto 6.1 % (0-4); Hematocrit 35.7 % (37.0-47.0); Imm Gran Abs Auto 0.01 X10*3/uL (0.00-0.03); Imm Gran Pct Auto 0.1 % (0.0-0.4); Lymphocytes Absolute Auto 2.3 X10*3/uL (1.2-4.9); Lymphocytes Percent Auto 29.3 % (20-40); Mean Corpuscular HGB Conc 33.6 g/dl (31.0-35.0); Mean Corpuscular Hemoglobin 30.4 pg (27.0-33.0); Mean Corpuscular Volume 90.4 fL (80.0-98.0); Mean Platelet Volume 9.6 fL (9.4-12.3); Monocytes Absolute Auto 0.8 X10*3/uL (0.1-1.2); Monocytes Percent Auto 10.1 % (2-11); Neutrophils Absolute Auto 4.2 x10*3/uL (2.0-8.3); Platelet Count 200 X10*3/uL (160-400); Red Blood Count 3.95 X10*6/uL (4.20-5.50); Red Cell Distribution Width 12.9 % (11.0-16.0); White Blood Count 7.7 X10*3/uL (4.8-10.8)
[2025-01-15] MEDS: 0.9 % Sodium Chloride 1,000 ML 999 ML IV (12:16)
--- NOTE | 2025-01-15 12:27 | PC.RT ---
RT called to bedside for asthmatic pt in distress. Upon arrival, pt is in obvious respiratory distress, unable to sit still stating to staff that she is withdrawing from fentanyl . Pt has audible wheezing and increased WOB. Wheezing auscultated in lungs bilateral throughout all lobes. Pt SATs 97% on NRB. Pt states she has not taken her home nebulizer in weeks and she currently smokes cigarettes and other drugs . Pt given breathing txs x2 however pt is agitated and unable to sit still for tx. Xopenex was given due to increased HR. Pt received txs blow by due to agitation. Post tx, pt SATs 88-90 on RA. Pt continues to have audible and auscultated wheezing but is refusing further txs.
[2025-01-15 12:29] LABS: Lactic Acid 0.8 mmol/L (0.5-2.0)
[2025-01-15 12:36] LABS: Alanine Aminotransferase 54 U/L (0-31); Albumin Level 4.1 g/dL (3.5-5.0); Alkaline Phosphatase 60 U/L (39-117); Anion Gap 13 (12-20); Aspartate Amino Transferase 49 U/L (5-31); Bilirubin Total 0.5 mg/dL (0.0-1.0); Blood Urea Nitrogen 12 mg/dL (9-16); Calcium 8.7 mg/dL (8.4-10.2); Carbon Dioxide 28 mmol/L (22-29); Chloride 103 mmol/L (96-108); Creatinine Clr Calc Pharmacy 114.2; Estimated Glomerular Filt Rate > 60; Glucose Random 116 mg/dL (60-115); Lipase 16 U/L (8-78); Magnesium 2.1 mg/dL (1.6-2.6); Potassium 4.4 mmol/L (3.3-5.1); Sodium 140 mmol/L (135-145); Total Protein 6.9 g/dL (6.5-8.0)
[2025-01-15 12:42] LABS: HCG Quantitative < 2 mIU/mL; Troponin-I High Sensitivity < 2.7 ng/L (<3.5-17.0)
[2025-01-15 12:56] LABS: Influenza A PCR NEGATIVE (Negative); Influenza B PCR NEGATIVE (Negative); Resp Syncy Virus RNA Qual PCR NEGATIVE (Negative); SARS COV2 PCR INHOUSE NEGATIVE (Negative)
[2025-01-15] MEDS: Buprenorphine/Naloxone 8/2 mg FILM 1 FILM SUBLINGUAL ×2 (13:03→13:36)
--- NOTE | 2025-01-15 13:09 | PC.NURSE ---
Pt's resp effort is high. Pt is alert, audible wheezes noted. Provider is aware of elevated RR. Following suboxone admin resp effort eased slightly.
--- NOTE | 2025-01-15 13:11 | PC.NURSE ---
Late entry for aprox 1230. Pt's boyfriend requested to visit patient at bedside. Due to the nature of patient's condition and response to narcan, visitor was asked to check in with securty p/t visiting. Visitor refused to cooperate with change consultant, went to his car, and upon return was willing to chance over. Per security, visior became loud and verbally agressive and then was denied visitation rights d/t his behaviors. [address] Daigle (father) called and asked to speak with patient. pt is given portable phone to reach father.
[2025-01-15 13:21] LABS: Amphetamine Screen Urine Not Detected (Not Detect); Barbiturates, Urine Not Detected (Not Detect); Benzodiazepines Screen Urine POSITIVE (Not Detect); Buprenorphine Scr Not Detected (Not Detect); Cannabinoid Screen Urine Not Detected (Not Detect); Cocaine Screen Urine POSITIVE (Not Detect); Fentanyl, urine POSITIVE (Not Detect); Methadone Screen, Urine Not Detected (Not Detect); Opiate Screen Urine POSITIVE (Not Detect); Oxycodone Screen Urine Not Detected (Not Detect); Phencyclidine Screen Urine Not Detected (Not Detect)
--- NOTE | 2025-01-15 13:35 | PC.RT ---
RT reassessed pt. Pt allowed RT to auscultate l/s, wheezy bilaterally. Pt refusing breathing txs. Pt is tachypneic and restless in bed, currently on 3L NC, SATs 93%. Provider at bedside, aware of increased RR, l/s, and refusal of txs.
--- NOTE | 2025-01-15 13:41 | PC.NURSE ---
Pt has multiple bruises at different stages on BUE in a variety of locations. The largest deepest bruise is almost circumferential around left bicep. Pt states she doesn't know where these came from. When asked about safety at home states I'm safe . Also has a bruise at beginning stages right lower back in oblong shape. see providers documentation for pictures taken by this RN. Pt states that she does use opiates, 10 bags a day at times, and is suffering from withdrawal. Suboxone seems to be helping and recovery service consult has been ordered.
--- NOTE | 2025-01-15 14:37 | PC.NURSE ---
Pt brought from triage to ED 4. Pt lethargic, arousable to verbal stimuli, speaking in short sentences, arrived on non-rebreather 15L. Respiratory Deidra at bedside
--- NOTE | 2025-01-15 14:40 | PC.NURSE ---
1128am- Pt brought from triage to ED 4. Pt minimally responsive to verbal stimuli, lethargic, arrived on 15L non-rebreather d/t sats in the 60s, Pt placed onto stretcher with assistance from other RNs. Raya from respiratory at bedside, O2 sats maintained low 90s on non-rebreather @ 15L. Bilateral 18g IVs placed in forearms. Verbal order for intranasal Narcan, given @1136. Pt more alert/responsive after Narcan given. Pt repeatedly pulling at oxygen mask/rolling and flailing around in bed. EKG and labs obtained and sent to lab. 1140am- Pt now alert- not oriented to place/time, asking for significant other to be at bedside. Pt told this RN she did fentanyl last night and is withdrawing. Per pt she does approx 5 bags of fentanyl per day, was clean recently for a while. Pt rolling around in bed, attempted to obtain lab work- difficult d/t pt resistant to care. Respirations even, tachypnea with RR in the high 30s, shallow respirators, audible inspiratory and expiratory wheezing heard. Pt given breathing treatment, placed on 3L NC with Raya RT present, maintaining O2 sats high 80s-low 90s, wob remains the same after multiple breathing treatments. Pt self removed 18g R forearm IV- L forearm IV wrapped to remain secure. Multiple bruises noted to Bilateral Upper Extremities- different stages of healing. Bruising noted to mid back also. Pt states she is unsure how she obtained these bruises- states she feels safe at home and has no concerns. Security at bedside to do belongings list with milker machine d/t pt recent drug use.
[2025-01-15] MEDS: diazePAM 10 MG/2 ML CARTRIDGE 5 MG IVPUSH (15:05)
--- NOTE | 2025-01-15 15:21 | ECG_ITS ---
Test Reason : sob Blood Pressure : */* mmHG Vent. Rate : 107 BPM Atrial Rate : 107 BPM P-R Int : 140 ms QRS Dur : 82 ms QT Int : 316 ms P-R-T Axes : 77 72 83 degrees QTcB Int : 421 ms Sinus tachycardia Biatrial enlargement Abnormal ECG When compared with ECG of 04-Jul-2024 17:40, No significant change was found Referred By: Michael Louis Electronically Signed By: Petar Louis
[2025-01-15] MEDS: droPERidol 5 MG/2 ML VIAL 1.25 MG IVPUSH (15:51)
[2025-01-15 15:53] LABS: Glucose, Whole Blood 137 mg/dL (60-115)
--- NOTE | 2025-01-15 15:53 | PC.NURSE ---
Pt walked to BR alone. Was found tachipnic and lightheaded in BR. was able to make it back to bed but RR increased to 44 and was eager to return to NC
--- NOTE | 2025-01-15 16:25 | PC.NURSE ---
Pt was ambulatoryt around nurses station with this RN. Quickly became tachipnic but was able to complete walk. At return to Bed was 89% on room air. pt was asked in a variety of ways what is holding her back from staying for admission and was never able to answer.
--- NOTE | 2025-01-15 16:37 | PC.NURSE ---
Pt requesting to leave. Pt ambulated around unit on RA with RN Angelica, O2 sats dropped to 89%. Pt endorsing dizziness/increased wob while ambulating. Pt refusing ekg/vitals. Bruises noted to bilateral inner and outer thighs- different stages of healing. LISA Goff aware- plan for pt to be d/c AMA.
== END 2025-01-15 16:43 | disposition left against medical advice (07) ==
PROVIDERS: Physician Assistant; Emergency Provider Emergency Medicine
DX: R06.02 Shortness of breath (principal); R09.02 Hypoxemia; F11.10 Opioid abuse, uncomplicated; R11.0 Nausea; R00.0 Tachycardia, unspecified; Z51.81 Encounter for therapeutic drug level monitoring; Z03.818 Encounter for observation for suspected exposure to other biological agents ruled out; Z79.899 Other long term (current) drug therapy
CPT/HCPCS: 0241U; 71045; 80053; 80307; 82947; 83605; 83690; 83735; 84484; 84702; 85025; 87040; 93005; 94640; 96361; 96365; 96375; 99285; J1200; J1790; J2765; J2919; J3360; J3475

== ENCOUNTER → 2025-01-15 11:28 | Outpatient (BNV) | payer MEDICAID, SELFPAY | PROVIDERS: Emergency Provider Emergency Medicine; Visit Provider Radiology Diagnostic Radiology | DX: R09.02 Hypoxemia (principal) | CPT/HCPCS: 71045 ==

== ENCOUNTER → 2025-01-15 15:21 | Outpatient (BNV) | payer MEDICAID, SELFPAY | PROVIDERS: Emergency Provider Emergency Medicine; Visit Provider Internal Medicine Cardiovascular Disease | DX: R00.0 Tachycardia, unspecified (principal); I51.7 Cardiomegaly | CPT/HCPCS: 93010 ==

== ENCOUNTER 2025-02-05 13:15 | Emergency (ER) | payer MEDICAID, SELFPAY ==
--- NOTE | 2025-02-05 13:25 | ED_ITS ---
HPI - Overdose General Chief Complaint: Overdose Stated Complaint: OD,FOUND UNRESP,NARCAN GIVEN W/GOOD RESULT Source: patient, EMS and old records reviewed Mode of arrival: EMS Limitations: other (in withdrawal poor historian ) History of Present Illness ED Provider: TAI HPI Narrative: 29 yo female with severe asthma, hypersensitivity pneumonitis, opiate use disorder no longer on methadone/suboxone. She admits to sniffing fentanyl today. She went to her granparents house. They found her laying down in the driveway. She has no signs of head trauma. She was 94% on RA and EMS notes they gave her 1mg IV narcan and she woke right up. She tells me she has no SI, she isn't sure she wants detox. She is crying, writhing around, has runny nose. I asked if she wants any MAT therapy and she states I don't know MD complaint: accidental overdose Onset (ago): minute(s) (CARETAKER RESORT) Timing confirmed by: family member Context: Accidental Overdose: wanted to get high Treatments Prior to Arrival: narcan (IV 1mg) Related Data Home Medications ?Medication ?Instructions ?Recorded ?Confirmed clonidine HCl 0.1 mg tablet 0.1 mg PO TID PRN ANXIETY 02/18/23 10/26/23 albuterol sulfate 90 mcg/actuation 2 puff inhalation Q6H PRN wheezing 06/12/23 10/26/23 aerosol inhaler (Ventolin HFA) clonazepam 2 mg tablet 2 mg PO BID Anxiety 06/12/23 10/26/23 fluticasone 500 mcg-salmeterol 50 1 ea inhalation BID PRN Shortness 06/12/23 10/26/23 mcg/dose blistr powdr for Of Breath Or Wheezing inhalation (Advair Diskus) ipratropium 0.5 mg-albuterol 3 mg 3 ml inhalation QID PRN WHEEZING 06/12/23 10/26/23 (2.5 mg base)/3 mL nebulization soln gabapentin 600 mg tablet 600 mg PO BEDTIME 06/21/23 10/26/23 clonazepam 2 mg tablet 2 mg PO DAILY PRN Anxiety 10/26/23 10/26/23 fluticasone propionate 50 1 spray intranasal Q12H PRN 10/26/23 10/26/23 mcg/actuation nasal Allergy Symptoms spray,suspension fluvoxamine 100 mg tablet 100 mg PO BEDTIME 10/26/23 10/26/23 methadone 10 mg/mL oral concentrate 20 mg PO QPM 10/26/23 10/26/23 methadone 10 mg/mL oral concentrate 60 mg PO QAM 10/26/23 10/26/23 promethazine 12.5 mg tablet 12.5 mg PO BID nausea 10/26/23 10/26/23 Previous Rx's ?Medication ?Instructions ?Recorded ipratropium 0.5 mg-albuterol 3 mg 3 ml inhalation RQ4H WHILE AWAKE 10/27/23 (2.5 mg base)/3 mL nebulization #180 mL soln prednisone 20 mg tablet 20 mg PO DAILY #7 tabs 10/27/23 albuterol sulfate 2.5 mg/3 mL 2.5 mg (3 mL) inhalation Q6H #75 mL 10/31/23 (0.083 %) solution for nebulization albuterol sulfate 90 mcg/actuation 2 inh inhalation Q4-6H PRN 10/31/23 breath activated powder inhaler shortness of breath or wheezing #1 ea azithromycin 250 mg tablet See Rx Instructions PO .COMPLEX #6 10/31/23 tabs prednisone 50 mg tablet 50 mg PO DAILY 5 days #5 tabs 10/31/23 cefuroxime axetil 250 mg tablet 250 mg PO BID 7 days #14 tabs 11/25/23 amoxicillin 875 mg-potassium 1 tab PO BID #14 tabs 04/10/24 clavulanate 125 mg tablet prednisone 10 mg tablet 10 mg PO DIRECTED #41 tabs 04/10/24 promethazine 25 mg tablet 25 mg PO TID PRN nausea and 04/10/24 vomiting #20 tabs clonazepam 2 mg tablet 2 mg PO TID #21 tabs 06/11/24 oxycodone 5 mg tablet 5 mg PO Q6H PRN severe pain (scale 06/11/24 score 7-10) #12 tabs promethazine 12.5 mg tablet 12.5 mg PO BID #21 tabs 06/11/24 promethazine 12.5 mg tablet 12.5 mg PO TID PRN nausea and 06/11/24 vomiting #21 tabs azithromycin 250 mg tablet See Rx Instructions PO .COMPLEX #6 07/04/24 tabs prednisone 20 mg tablet 40 mg (2 x 20 mg) PO DAILY #10 tabs 07/04/24 cephalexin 500 mg capsule 500 mg PO QID 7 days #28 caps 09/13/24 doxycycline hyclate 100 mg capsule 100 mg PO BID 7 days #14 caps 09/13/24 clonazepam 2 mg tablet 2 mg PO BID #6 tabs 11/15/24 ciprofloxacin HCl 500 mg tablet 500 mg PO BID 7 days #14 tabs 11/21/24 albuterol sulfate 90 mcg/actuation 2 puff inhalation Q4-6H PRN 01/15/25 aerosol inhaler shortness of breath or wheezing #8.5 grams prednisone 20 mg tablet 40 mg (2 x 20 mg) PO DAILY #10 tabs 01/15/25 Allergies Allergy/AdvReac Type Severity Reaction Status Date / Time latex [LATEX] Allergy Intermediate RASH Verified 02/05/25 13:41 ondansetron [From Zofran] Allergy Intermediate Shortness Verified 02/05/25 13:41 of Breath propranolol Allergy Intermediate Shortness Verified 02/05/25 13:41 of Breath acetaminophen Allergy Difficulty Verified 02/05/25 13:41 Breathing adhesive tape [ADHESIVE TAPE] AdvReac Intermediate RASH Verified 02/05/25 13:41 Review of Systems Review of Systems: ROS unable to be obtained due to withdrawal and doesn't want to answer PMFSH Past Medical History Attestation statement: The following information was validated with the patient. Source: old records reviewed Medical History Mood disorder Polysubstance abuse Pneumonitis Asthma Asthma Pneumonia due to COVID-19 virus COVID-19 Bipolar disorder PTSD (post-traumatic stress disorder) Depression Anxiety Asthma GERD (gastroesophageal reflux disease) Crohn's disease Opioid use disorder Family History Family History Father Colon cancer Mother No problems noted. Brother Autism Sister Bipolar disorder Maternal Aunt Breast cancer Social History Social History Household Members: None Housing: Apartment Housing Other:: motel Do you presently have visiting nurse or other home services: No Unable to assess alcohol history related to: Unknown Alcohol intake: never Patient Tobacco Use Status: Former Tobacco user Cigarette Packs Per Day: 0.33 Cigarettes Per Day: 6.6 Years Smoked: 9 Smoked in Last 30 Days: No e-Cigarette/Vaping Use: Former Use Second Hand Smoke Exposure: Yes Use of substances other than those prescribed or required for medical reasons: Yes Substance Use Type: Opiates Substance Use Frequency: Daily Last Used Substance: Hours (ago) Any prior treatment program specific to substance use: No Advance Directives Date on File: 05/07/21 Do you have a plan to hurt others: No Plan Patient : No service: No Current occupational status: unemployed Cognitive needs: No Hearing needs: No Vision needs: No Physical Exam Vital Signs: Vital Signs: Last Vital Signs Temp 99.9 F 02/05/25 13:50 Pulse 92 02/05/25 13:50 Resp 20 02/05/25 13:50 BP 116/75 02/05/25 13:50 Pulse Ox 95 02/05/25 13:50 O2 Del Method Room Air 02/05/25 13:50 BMI result Body Mass Index 20.9 Appearance: Alert. Oriented X3. anxious, crying in distress, mild acute distress Eyes: Pupils equal, round and reactive to light. ENT: Pharynx normal. atraumatic Neck: Normal inspection. Neck supple. CVS: Normal heart rate and rhythm. Pulses normal. Respiratory: No respiratory distress. Breath sounds mild exp wheezes noted throughout Abdomen: Soft and nontender. Skin: Skin warm and dry. Normal skin color. Normal skin turgor. Extremities: No lower extremity edema. Neuro: Oriented X 3. No motor deficit. No sensory deficit. CN2-12 intact Medications Administered Discontinued Medications Generic Name Dose Route Start Last Admin Trade Name Pro PRN Reason Stop Dose Admin Albuterol Sulfate 2.5 mg/ 0 mg 02/05/25 13:32 02/05/25 13:43 Albuterol/Ipratropium 3 ml INHALE 02/05/25 13:33 5 dose ONCE ONE Administration Medical Decision Making Medical Decision Making MDM Narrative: 29 yo female with severe asthma, hypersensitivity pneumonitis, opiate use disorder here with c/o accidental overdose on fentanyl - she sniffed it. At this time I did order narcan to go. I have ordered neb for wheezing. She has no SI. I am not suspecting intentional overdose. Will need close monitoring. She was offered MAT therapy/detox and right now she states I don't know Differential Diagnosis Differential Diagnoses: The differential diagnosis associated with the presentation includes accidental overdose, bronchospasm Admission/Observation Consideration of admission/observation: Escalation of care including admission/observation considered refuses to stay, patient is leaving AMA. She has no hypoxia, she is not alerted, she has no head trauma. She has the right to leave AMA. We are going to hand her narcan. She denies SI Independent Historian Clinical information obtained from an independent historian. History obtained from or confirmed by: EMS External Record Review External record reviewed: Inpatient record and Outpatient record Social Determinants Patient?s care significantly limited by Social Determinants of Health including: Problems related to primary support group Discharge Plan Discharge Clinical Impression: Opiate overdose Patient Disposition: Left Against Medical Advice Instructions: Adult Overdose (ED), Against Medical Advice (ED) Additional Instructions: Overdose You were seen in our Emergency Department for an overdose today. You received narcan in order to reverse the effects of overdose. Narcan only lasts about 45 min to 1 hour in the system. You may have been given narcan to take home with you today, please keep it near you if you are going to use again, so others can use it if needed.? The number one risk for fatal overdose is using alone? [employer] is a / hotline where you can be on the phone with someone while you use, and they can call for help if they suspect an overdose: [phone] Things to look out for when you leave include severe vomiting or diarrhea, headaches, muscle cramps, fever, coughing, chest pain, or if you feel so short of breath you cannot walk to the bathroom. Please seek care and return any time for worsening symptoms.? You may have been provided with safer injection?items, please take time to take care of YOU and your health. Use new supplies whenever possible to lessen the chances of infections and other illnesses.? If you need more supplies, please go [facility],? [address], [place] you can call or text to coordinate delivery of safer supplies. If you decide you want to stop or cut down on how much you?re using, please call the numbers on the list provided to you or you can come to our outpatient Addiction Treatment office [facility] (M-F 9am-5p) [address] [place] [address], [address] [place] [address]. [phone] Prescriptions: No Action clonidine HCl 0.1 mg tablet 0.1 mg PO TID PRN (Reason: ANXIETY ) fluticasone propion-salmeterol [Advair Diskus] 500-50 mcg/dose blister with device 1 ea INHALATION BID PRN (Reason: Shortness Of Breath Or Wheezing) albuterol sulfate [Ventolin HFA] 90 mcg/actuation HFA aerosol inhaler 2 puff inhalation Q6H PRN (Reason: wheezing) clonazepam 2 mg Tablet 2 mg PO BID ipratropium-albuterol 0.5 mg-3 mg(2.5 mg base)/3 mL solution for nebulization 3 ml inhalation QID PRN (Reason: WHEEZING ) gabapentin 600 mg tablet 600 mg PO BEDTIME cefuroxime axetil 250 mg tablet 250 mg PO BID 7 Days Qty: 14 0RF oxycodone 5 mg tablet 5 mg PO Q6H PRN (Reason: severe pain (scale score 7-10)) Qty: 12 0RF Rx Instructions: Partial Fill upon patient request. promethazine 12.5 mg tablet 12.5 mg PO TID PRN (Reason: nausea and vomiting) Qty: 21 0RF clonazepam 2 mg tablet 2 mg PO TID Qty: 21 0RF promethazine 12.5 mg tablet 12.5 mg PO BID Qty: 21 0RF clonazepam 2 mg tablet 2 mg PO BID Qty: 6 0RF ciprofloxacin HCl 500 mg tablet 500 mg PO BID 7 Days Qty: 14 0RF promethazine 12.5 mg tablet 12.5 mg PO BID fluvoxamine 100 mg tablet 100 mg PO BEDTIME clonazepam 2 mg tablet 2 mg PO DAILY PRN (Reason: Anxiety) methadone 10 mg/mL Concentrate 60 mg PO QAM methadone 10 mg/mL Concentrate 20 mg PO QPM fluticasone propionate 50 mcg/actuation spray,suspension 1 spray intranasal Q12H PRN (Reason: Allergy Symptoms) Rx Instructions: administer into each nostril ipratropium-albuterol 0.5 mg-3 mg(2.5 mg base)/3 mL Solution For Nebulization 3 ml inhalation RQ4H WHILE AWAKE Qty: 180 0RF Rx Instructions: Use DuoNeb updraft every 4 hours while awake x2 days then as needed prednisone 20 mg tablet 20 mg PO DAILY Qty: 7 0RF Rx Instructions: Take with food albuterol sulfate 2.5 mg /3 mL (0.083 %) solution for nebulization 2.5 mg inhalation Q6H Qty: 75 0RF albuterol sulfate 90 mcg/actuation aerosol powdr breath activated 2 inh inhalation Q4-6H PRN (Reason: shortness of breath or wheezing) Qty: 1 0RF azithromycin 250 mg tablet See Rx Instructions .ROUTE .COMPLEX Qty: 6 0RF Rx Instructions: For 250 mg dose pack: take 500 mg today (day 1), then 250 mg for 4 days (days 2-5) prednisone 50 mg tablet 50 mg PO DAILY 5 Days Qty: 5 0RF amoxicillin-pot clavulanate 875-125 mg tablet 1 tab PO BID Qty: 14 0RF promethazine 25 mg tablet 25 mg PO TID PRN (Reason: nausea and vomiting) Qty: 20 0RF prednisone 10 mg tablet 10 mg PO DIRECTED Qty: 41 0RF Rx Instructions: see taper instructions 60mg on day 1-5, 40mg on day 6, 30mg on day 7, 20mg on day 8, 10mg on day 9, 5mg on day 10 azithromycin 250 mg tablet See Rx Instructions .ROUTE .COMPLEX Qty: 6 0RF Rx Instructions: For 250 mg dose pack: take 500 mg today (day 1), then 250 mg for 4 days (days 2-5) prednisone 20 mg tablet 40 mg PO DAILY Qty: 10 0RF doxycycline hyclate 100 mg capsule 100 mg PO BID 7 Days Qty: 14 0RF cephalexin 500 mg capsule 500 mg PO QID 7 Days Qty: 28 0RF prednisone 20 mg tablet 40 mg PO DAILY Qty: 10 0RF albuterol sulfate 90 mcg/actuation HFA aerosol inhaler 2 puff inhalation Q4-6H PRN (Reason: shortness of breath or wheezing) Qty: 8.5 0RF Print Language: Japanese
[2025-02-05 13:28] VITALS: BP 124/82; PULSE 85; O2SAT 100
[2025-02-05 13:30] VITALS: BP 116/75; PULSE 92; RESP 20; TEMP 37.3; O2SAT 95; BMI 20.9
[2025-02-05 13:43] VITALS: PULSE 92; RESP 20; O2SAT 96
[2025-02-05] MEDS: Albuterol Sulfate 2.5 MG, Albuterol/Iprat 2.5/0.5MG 3 ML 3 ML INHALE (13:43)
[2025-02-05 13:50] VITALS: BP 116/75; PULSE 92; RESP 20; TEMP 37.7; O2SAT 95
--- NOTE | 2025-02-05 14:04 | PC.NURSE ---
29 F presents to ED from a overdose, found in a driveway and grandmother called 911. EMS brought patient in after narcanning her. Pt is A+Ox3-4, RR even and unlabored after breathing treatment. Pt c/o all over body pain, 03/03. Pt anxious but mostly cooperative, sts she wants to be discharged.
[2025-02-05 14:18] VITALS: BP 116/75; PULSE 92; RESP 20; TEMP 37.7; O2SAT 95
== END 2025-02-05 14:19 | disposition left against medical advice (07) ==
PROVIDERS: Emergency Provider Emergency Medicine
DX: T40.2X1A Poisoning by other opioids, accidental (unintentional), initial encounter (principal); R40.4 Transient alteration of awareness; F19.10 Other psychoactive substance abuse, uncomplicated; Y92.014 Private driveway to single-family (private) house as the place of occurrence of the external cause; J45.909 Unspecified asthma, uncomplicated; Z53.29 Procedure and treatment not carried out because of patient's decision for other reasons; F33.9 Major depressive disorder, recurrent, unspecified; F41.9 Anxiety disorder, unspecified; F43.10 Post-traumatic stress disorder, unspecified; Z79.899 Other long term (current) drug therapy
CPT/HCPCS: 94640; 99284; 99285

== ENCOUNTER 2025-03-02 23:49 | Emergency (ER) | payer MEDICAID, SELFPAY ==
[2025-03-02 23:57] VITALS: BP 133/82; PULSE 119; RESP 20; TEMP 36.7; O2SAT 94; BMI 17.6
--- NOTE | 2025-03-03 01:01 | ED.SKABFB ---
HPI - Skin/Abscess/Foreign Bdy General Chief complaint: Skin/Abscess/Foreign Body Stated complaint: infected mosquito bite? Time Seen by Provider: 03/03/25 00:50 Source: patient Mode of arrival: ambulatory Limitations: no limitations History of Present Illness ED Provider: Dr. Gail Singh HPI narrative: patient comes to the emergency room complaining of an infected pimple between her eyebrows. Also complaining that her eyes are goopy when she wakes up. Patient states that it started a proximally 3 days ago with a pimple, she popped it and it became infected. Denies fever chills. Patient denies any eye pain. However, patient states at night they become very sticky. Also, patient requesting a small script for Klonopin. Patient states that she has an appointment pending with her PCP. Patient states she takes 2 mg t.i.d. for seizures. Related Data Home Medications ?Medication ?Instructions ?Recorded ?Confirmed clonidine HCl 0.1 mg tablet 0.1 mg PO TID PRN ANXIETY 02/18/23 10/26/23 albuterol sulfate 90 mcg/actuation 2 puff inhalation Q6H PRN wheezing 06/12/23 10/26/23 aerosol inhaler (Ventolin HFA) clonazepam 2 mg tablet 2 mg PO BID Anxiety 06/12/23 10/26/23 fluticasone 500 mcg-salmeterol 50 1 ea inhalation BID PRN Shortness 06/12/23 10/26/23 mcg/dose blistr powdr for Of Breath Or Wheezing inhalation (Advair Diskus) ipratropium 0.5 mg-albuterol 3 mg 3 ml inhalation QID PRN WHEEZING 06/12/23 10/26/23 (2.5 mg base)/3 mL nebulization soln gabapentin 600 mg tablet 600 mg PO BEDTIME 06/21/23 10/26/23 clonazepam 2 mg tablet 2 mg PO DAILY PRN Anxiety 10/26/23 10/26/23 fluticasone propionate 50 1 spray intranasal Q12H PRN 10/26/23 10/26/23 mcg/actuation nasal Allergy Symptoms spray,suspension fluvoxamine 100 mg tablet 100 mg PO BEDTIME 10/26/23 10/26/23 methadone 10 mg/mL oral concentrate 20 mg PO QPM 10/26/23 10/26/23 methadone 10 mg/mL oral concentrate 60 mg PO QAM 10/26/23 10/26/23 promethazine 12.5 mg tablet 12.5 mg PO BID nausea 10/26/23 10/26/23 Previous Rx's ?Medication ?Instructions ?Recorded ipratropium 0.5 mg-albuterol 3 mg 3 ml inhalation RQ4H WHILE AWAKE 10/27/23 (2.5 mg base)/3 mL nebulization #180 mL soln prednisone 20 mg tablet 20 mg PO DAILY #7 tabs 10/27/23 albuterol sulfate 2.5 mg/3 mL 2.5 mg (3 mL) inhalation Q6H #75 mL 10/31/23 (0.083 %) solution for nebulization albuterol sulfate 90 mcg/actuation 2 inh inhalation Q4-6H PRN 10/31/23 breath activated powder inhaler shortness of breath or wheezing #1 ea azithromycin 250 mg tablet See Rx Instructions PO .COMPLEX #6 10/31/23 tabs prednisone 50 mg tablet 50 mg PO DAILY 5 days #5 tabs 10/31/23 cefuroxime axetil 250 mg tablet 250 mg PO BID 7 days #14 tabs 11/25/23 amoxicillin 875 mg-potassium 1 tab PO BID #14 tabs 04/10/24 clavulanate 125 mg tablet prednisone 10 mg tablet 10 mg PO DIRECTED #41 tabs 04/10/24 promethazine 25 mg tablet 25 mg PO TID PRN nausea and 04/10/24 vomiting #20 tabs clonazepam 2 mg tablet 2 mg PO TID #21 tabs 06/11/24 oxycodone 5 mg tablet 5 mg PO Q6H PRN severe pain (scale 06/11/24 score 7-10) #12 tabs promethazine 12.5 mg tablet 12.5 mg PO BID #21 tabs 06/11/24 promethazine 12.5 mg tablet 12.5 mg PO TID PRN nausea and 06/11/24 vomiting #21 tabs azithromycin 250 mg tablet See Rx Instructions PO .COMPLEX #6 07/04/24 tabs prednisone 20 mg tablet 40 mg (2 x 20 mg) PO DAILY #10 tabs 07/04/24 cephalexin 500 mg capsule 500 mg PO QID 7 days #28 caps 09/13/24 doxycycline hyclate 100 mg capsule 100 mg PO BID 7 days #14 caps 09/13/24 clonazepam 2 mg tablet 2 mg PO BID #6 tabs 11/15/24 ciprofloxacin HCl 500 mg tablet 500 mg PO BID 7 days #14 tabs 11/21/24 albuterol sulfate 90 mcg/actuation 2 puff inhalation Q4-6H PRN 01/15/25 aerosol inhaler shortness of breath or wheezing #8.5 grams prednisone 20 mg tablet 40 mg (2 x 20 mg) PO DAILY #10 tabs 01/15/25 cephalexin 500 mg capsule 500 mg PO BID #14 caps 03/03/25 clonazepam 2 mg tablet (Klonopin) 2 mg PO TID #10 tabs 03/03/25 doxycycline hyclate 100 mg capsule 100 mg PO BID #14 caps 03/03/25 erythromycin 5 mg/gram (0.5 %) eye 1 appl ophthalmic (eye) DAILY #3.5 03/03/25 ointment grams Allergies Allergy/AdvReac Type Severity Reaction Status Date / Time latex (LATEX) Allergy Intermediate RASH Verified 03/02/25 23:59 ondansetron (From Zofran) Allergy Intermediate Shortness Verified 03/02/25 23:59 of Breath propranolol Allergy Intermediate Shortness Verified 03/02/25 23:59 of Breath acetaminophen Allergy Difficulty Verified 03/02/25 23:59 Breathing adhesive tape (ADHESIVE TAPE) AdvReac Intermediate RASH Verified 03/02/25 23:59 Review of Systems Review of Systems: Constitutional : No Weight loss, No Fever, No Chills, No Night Sweats, No Fatigue, No Malaise ENT/Mouth : No Hearing loss, No Ear Pain, No Nasal Congestion, No Sinus Pain, No Hoarseness, No sore throat, No Rhinorrhea, No Swallowing Difficulty Eyes: No Eye Pain, No Swelling, No Redness, No Foreign Body, No Discharge, No Vision Changes Cardiovascular : No Chest Pain, No SOB, No Dyspnea on Exertion, No Orthopnea, No Edema, No Palpitations Respiratory : No Cough, No Sputum, No Wheezing, No Smoke Exposure, No Dyspnea Gastrointestinal : No Nausea, No Vomiting, No Diarrhea, No Constipation, No abdominal Pain, No Hematochezia, No Melena Genitourinary : no irregular bleeding, No Dysuria, No Urinary Frequency, No Hematuria, No Urinary Incontinence, No Urgency, No Flank Pain, No Urinary Flow Changes, No Hesitancy Musculoskeletal : No joint pain, No Myalgias, No Joint Swelling Skin : Complaining of skin lesions/ abscess between the eyebrows Neuro : No Weakness, No Numbness, No Paresthesias, No Loss of Consciousness, No Dizziness, No Headache Psych : No Anxiety/Panic, No Depression, No SI/HI/AH/VH, No Social Issues, Heme/Lymph: No Bruising, No Bleeding,No Lymphadenopathy Endocrine : No Polyuria, No Polydipsia, No Temperature Intolerance [facility] Past Medical History Medical History Mood disorder Polysubstance abuse Pneumonitis Asthma Asthma Pneumonia due to COVID-19 virus COVID-19 Bipolar disorder PTSD (post-traumatic stress disorder) Depression Anxiety Asthma GERD (gastroesophageal reflux disease) Crohn's disease Opioid use disorder Family History Family History Father Colon cancer Mother No problems noted. Brother Autism Sister Bipolar disorder Maternal Aunt Breast cancer Social History Social History Household Members: None Housing: Apartment Housing Other:: [facility] Do you presently have visiting nurse or other home services: No Unable to assess alcohol history related to: Unknown Alcohol intake: never Patient Tobacco Use Status: Former Tobacco user Cigarette Packs Per Day: 0.33 Cigarettes Per Day: 6.6 Years Smoked: 9 e-Cigarette/Vaping Use: Former Use Second Hand Smoke Exposure: Yes Substance Use Type: Opiates Advance Directives: Yes Advance Directives on File: Yes Advance Directives Date on File: 05/07/21 service: No Current occupational status: unemployed Cognitive needs: No Hearing needs: No Vision needs: No Physical Exam Vital Signs: Vital Signs: Last Vital Signs Temp 98.1 F 03/02/25 23:57 Pulse 119 H 03/02/25 23:57 Resp 20 03/02/25 23:57 BP 133/82 03/02/25 23:57 Pulse Ox 94 03/02/25 23:57 O2 Del Method Room Air 03/02/25 23:57 BMI result Body Mass Index 17.6 Const: Other: Appearance: Alert. Oriented X3. No acute distress. Eyes: Pupils equal, round and reactive to light. There is no discharge from the eyes. ENT: Pharynx normal. Neck: Normal inspection. Neck supple. No lymph nodes noted. No crepitus CVS: Normal heart rate and rhythm. Pulses normal. Normal S1 and S2 Respiratory: No respiratory distress. Breath sounds normal. No Wheezing. No rales Abdomen: Soft and nontender. No rigidity. No distention. Skin: Skin warm and dry. Normal skin color. Normal skin turgor. patient has an infected pimple, pus draining. Extremities: No lower extremity edema. No Lacerations. No Rash Neuro: Oriented X 3. No motor deficit. No sensory deficit. Moving all extremities. No slurred speech. CN 2 through 12 grossly intact Psych: calm, cooperative, normal affect Medical Decision Making Medical Decision Making MDM Narrative: With a an 18 gauge needle, the lesion between the eyebrows was unroofed, a moderate amount of pus was expressed. Patient does not seem to have any pus in the lacrimal ducts. Given her symptoms physical exam, we will prescribe p.o. antibiotics and erythromycin ointment. I reviewed patient's mass pad, patient does get prescribed 2 mg of Klonopin t.i.d.. Patient was given 10 pills. Patient instructed to call her PCP tomorrow morning Discharge Plan Discharge Clinical Impression: Cellulitis, Medication refill Patient Disposition: Home, Self-Care Instructions: Cellulitis (ED), Medicine Refill (ED) Additional Instructions: Please follow-up with your primary care physician tomorrow. If you have any worsening or new symptoms, please return to the emergency room or call 911 Prescriptions: New clonazepam [Klonopin] 2 mg tablet 2 mg PO TID Qty: 10 0RF doxycycline hyclate 100 mg capsule 100 mg PO BID Qty: 14 0RF cephalexin 500 mg capsule 500 mg PO BID Qty: 14 0RF erythromycin 5 mg/gram (0.5 %) ointment 1 appl ophthalmic (eye) DAILY Qty: 3.5 0RF No Action clonidine HCl 0.1 mg tablet 0.1 mg PO TID PRN (Reason: ANXIETY ) fluticasone propion-salmeterol [Advair Diskus] 500-50 mcg/dose blister with device 1 ea INHALATION BID PRN (Reason: Shortness Of Breath Or Wheezing) albuterol sulfate [Ventolin HFA] 90 mcg/actuation HFA aerosol inhaler 2 puff inhalation Q6H PRN (Reason: wheezing) clonazepam 2 mg Tablet 2 mg PO BID ipratropium-albuterol 0.5 mg-3 mg(2.5 mg base)/3 mL solution for nebulization 3 ml inhalation QID PRN (Reason: WHEEZING ) gabapentin 600 mg tablet 600 mg PO BEDTIME cefuroxime axetil 250 mg tablet 250 mg PO BID 7 Days Qty: 14 0RF oxycodone 5 mg tablet 5 mg PO Q6H PRN (Reason: severe pain (scale score 7-10)) Qty: 12 0RF Rx Instructions: Partial Fill upon patient request. promethazine 12.5 mg tablet 12.5 mg PO TID PRN (Reason: nausea and vomiting) Qty: 21 0RF clonazepam 2 mg tablet 2 mg PO TID Qty: 21 0RF promethazine 12.5 mg tablet 12.5 mg PO BID Qty: 21 0RF clonazepam 2 mg tablet 2 mg PO BID Qty: 6 0RF ciprofloxacin HCl 500 mg tablet 500 mg PO BID 7 Days Qty: 14 0RF promethazine 12.5 mg tablet 12.5 mg PO BID fluvoxamine 100 mg tablet 100 mg PO BEDTIME clonazepam 2 mg tablet 2 mg PO DAILY PRN (Reason: Anxiety) methadone 10 mg/mL Concentrate 60 mg PO QAM methadone 10 mg/mL Concentrate 20 mg PO QPM fluticasone propionate 50 mcg/actuation spray,suspension 1 spray intranasal Q12H PRN (Reason: Allergy Symptoms) Rx Instructions: administer into each nostril ipratropium-albuterol 0.5 mg-3 mg(2.5 mg base)/3 mL Solution For Nebulization 3 ml inhalation RQ4H WHILE AWAKE Qty: 180 0RF Rx Instructions: Use DuoNeb updraft every 4 hours while awake x2 days then as needed prednisone 20 mg tablet 20 mg PO DAILY Qty: 7 0RF Rx Instructions: Take with food albuterol sulfate 2.5 mg /3 mL (0.083 %) solution for nebulization 2.5 mg inhalation Q6H Qty: 75 0RF albuterol sulfate 90 mcg/actuation aerosol powdr breath activated 2 inh inhalation Q4-6H PRN (Reason: shortness of breath or wheezing) Qty: 1 0RF azithromycin 250 mg tablet See Rx Instructions .ROUTE .COMPLEX Qty: 6 0RF Rx Instructions: For 250 mg dose pack: take 500 mg today (day 1), then 250 mg for 4 days (days 2-5) prednisone 50 mg tablet 50 mg PO DAILY 5 Days Qty: 5 0RF amoxicillin-pot clavulanate 875-125 mg tablet 1 tab PO BID Qty: 14 0RF promethazine 25 mg tablet 25 mg PO TID PRN (Reason: nausea and vomiting) Qty: 20 0RF prednisone 10 mg tablet 10 mg PO DIRECTED Qty: 41 0RF Rx Instructions: see taper instructions 60mg on day 1-5, 40mg on day 6, 30mg on day 7, 20mg on day 8, 10mg on day 9, 5mg on day 10 azithromycin 250 mg tablet See Rx Instructions .ROUTE .COMPLEX Qty: 6 0RF Rx Instructions: For 250 mg dose pack: take 500 mg today (day 1), then 250 mg for 4 days (days 2-5) prednisone 20 mg tablet 40 mg PO DAILY Qty: 10 0RF doxycycline hyclate 100 mg capsule 100 mg PO BID 7 Days Qty: 14 0RF cephalexin 500 mg capsule 500 mg PO QID 7 Days Qty: 28 0RF prednisone 20 mg tablet 40 mg PO DAILY Qty: 10 0RF albuterol sulfate 90 mcg/actuation HFA aerosol inhaler 2 puff inhalation Q4-6H PRN (Reason: shortness of breath or wheezing) Qty: 8.5 0RF Print Language: Telugu
[2025-03-03 01:05] VITALS: BP 133/82; PULSE 119; RESP 20; TEMP 36.7; O2SAT 94
== END 2025-03-03 01:06 | disposition home or self-care (01) ==
PROVIDERS: Emergency Provider Emergency Medicine
DX: L03.211 Cellulitis of face (principal); Z76.0 Encounter for issue of repeat prescription; Z79.899 Other long term (current) drug therapy
CPT/HCPCS: 99282; 99283

== ENCOUNTER 2025-05-01 23:44 | Emergency (ER) | payer MEDICAID, SELFPAY ==
[2025-05-01 23:46] VITALS: BP 107/77; PULSE 127; RESP 18; TEMP 36.6; O2SAT 94; BMI 16.1
--- OUTSIDE RECORDS SUMMARY | 2025-05-01 23:57 | XMS_ITS | Clinical Summary ---
Author Organization [facility] Address [address] [place] [address] Phone Care Team Providers Care Wool Fleece Sorter Name Role Phone Erma Ng MD Primary Care Provider [phone] Allergies Active Allergy Reactions Criticality Noted Date Comments Environmental Other Rash Low 02/02/2018 Adhesive tape Medications albuterol HFA 108 (90 BASE) MCG/ACT inhaler Inhale 2 puffs every 6 hours. Active amoxicillin 500 MG capsule 0 01/30/2018 Active budesonide 0.25 MG/2ML nebulizer solution Inhale. 12/08/2017 Active fluticasone-salme terol 500-50 MCG/DOSE diskus inhaler Inhale 1 puff. Active ALBUTEROL (2.5 MG/3ML) 0.083% nebulizer solutionIndicatio ns:Mild intermittent extrinsic asthma without complication ONE VIAL VIA-NEBULIZ ER EVERY 4 HOURS NEEDED FOR COUGH OR WHEEZE 75 mL 11/11/2018 Active Active Problems Problem Noted Date Diagnosed Date Generalized anxiety disorder 08/11/2017 Overview (03/17/2018): Anxiety, generalized (300.02) Onset: 08/11/2017 Added by: Luda Peña Extrinsic asthma 07/19/2017 Overview (03/17/2018): Asthma (493.00) Onset: 05/15/2017 Added by: Danica Chaney Last Assessment & Plan: Not currently coughing or wheezing. Have not ordered prednisone or antibiotic as had been ordered as an outpt. Prn MDI and continue advair. Persistent vomiting 07/19/2017 Low back pain 05/15/2017 Overview (03/17/2018): Low back pain (724.2) Onset: 05/15/2017 Added by: Erma Ng Dysthymic disorder 11/01/2016 Overview (03/17/2018): Anxiety with depression (300.4) Onset: 11/01/2016 Added by: Marvin Crespo Migraine with aura 11/29/2015 Overview (03/17/2018): Migraine with aura, without mention of intractable migraine without mention of status migrainosus (346.00) Onset: 11/29/2015 Added by: Gustavo Whalen Contraceptive surveillance 04/11/2015 Overview (03/17/2018): Routine Depo-Provera follow-up (V25.49) Onset: 04/11/2015 Added by: Luda Peña Scoliosis (and kyphoscoliosis), idiopathic 11/09 Overview (12/20/2022): Scoliosis (737.30) Onset: 11/09/2012 Added by: Erma Ng Diagnosis load November 2022 Immunizations Immunization Administration Dates Next Due DTaP 5 07/10/2002, 9,02/13/1998, 998,1997 HPV, Quadrivalent 07/21/2009,05/18/2008,03/16/20 08 Hep A, ped/adol 06/24/2013,11/17/2012 Hep B, ped/adol 02/13/1998,1997,1997 Hib (PRP-T) 11/17/1998, 8,1997, 998 IPV 07/10/2002, 9,1997, 998 Influenza 07/19/2017 MMR 07/10/2002,08/22/1998 Meningococcal Conj (Menactra) MCV4P 11/22/2013,0 12/06/2008 Tdap 12/06/2008 Varicella 07/30/2007,08/22/1998 Family History Medical History Relation Name Comments Diabetes Mother georgina Anxiety disorder Sister demetria Relation Name Status Comments Father valeriy Alive ciliacs, gastri tis, diverticulitis, colonitis Mother georgina Alive auto immune dis order, neuro surgery, Sister demetria Alive Social History Tobacco Use Types Packs/Day Years Used Date Smoking Tobacco: Never Smokeless Tobacco: Never Comments Unknown Sex and Gender Information Value Date Recorded Sex Assigned at Not on file Legal Sex Female 6:35 PM EDT Gender Identity Not on file Sexual Orientation Not on file Last Filed Vital Signs Vital Sign Reading Time Taken Comments Blood Pressure 110/70 02/02/2018 3:39 PM EDT Pulse 100 02/02/2018 3:39 PM EDT Temperature 37.2 C (98.9 F) 02/02/2018 3:39 PM EDT Respiratory Rate - - Oxygen Saturation - - Inhaled Oxygen Concentration - - Weight 48.9 kg (107 lb 14.4 oz) 02/02/2018 3:39 PM EDT Height 165.1 cm (5' 5 ) 02/02/2018 3:39 PM EDT Body Mass Index 17.96 02/02/2018 3:39 PM EDT Plan of Treatment Health Maintenance Due Date Last Done Comments DTaP,Tdap,and Td Vaccines (7 - Td or Tdap) 12/06/2018 12/06/2008, 07/10/2002, 08/21/1999, Additional history exists Influenza Vaccines (#1) 2025 07/19/2017 COVID-19 Vaccine (1 - season) 2025 Hepatitis B Vaccines Completed 02/13/1998, 1997, 1997 HIB Vaccines Completed 11/17/1998, 01/24, 1997, Additional history exists IPV Vaccines Completed 07/10/2002, 07/26, 1997, Additional history exists MMR Vaccines Completed 07/10/2002, 08/22/1998 Varicella Vaccines Completed 07/30/2007, 08/22/1998 HPV Vaccines Completed 07/21/2009, 04/26, 03/16/2008 Hepatitis A Vaccines Completed 06/24/2013, 11/18/19 13 Meningococcal Vaccine Completed 11/22/2013, 009 Men B Vaccine Aged Out No longer elig ible based on patient's age to complete this topic Pneumococcal Vaccine Aged Out No long er eligible based on patient's age to complete this topic Insurance [facility] NON PCC Care Teams Wool Fleece Sorter Relationship Specialty Start Date End Date Erma gN MD PCP - General 12/31/17
--- OUTSIDE RECORDS SUMMARY | 2025-05-01 23:57 | XMS_ITS | Encounter Summary ---
Author Organization [facility] Address [address] [place] [address] Phone Care Team Providers Care Archival Studies Professor Name Role Phone Erma Ng MD Primary Care Provider [phone] Reason for Visit * Reason Comments Med Refill Encounter Details Date Type Department Care Team (Late st Contact Info) Description 11/10/2018 Refill [facility] [address] [place] [address] [place] [id number] Marvin Crespo MD [address] [place] [address] [place] [phone] Mild intermittent extrinsic asthma without complication (Primary Dx) Social History Tobacco Use Types Packs/Day Years Used Date Smoking Tobacco: Never Smokeless Tobacco: Never Comments Unknown Sex and Gender Information Value Date Recorded Sex Assigned at Not on file Legal Sex Female 6:35 PM EDT Gender Identity Not on file Sexual Orientation Not on file documented as of this encounter Miscellaneous Notes * Telephone Encounter - Kendal Vasquez [place] - 11/11/2018 10:05 AM EDT Last WCC 05/15/17 Patient needs WCC I tried to call patient to schedule WCC but all numbers in chart are not working documented in this encounter Plan of Treatment Not on file documented as of this encounter Visit Diagnoses Diagnosis Mild intermittent extrinsic asthma without complication- Primary documented in this encounter Care Teams Archival Studies Professor Relationship Specialty Start Date End Date Erma Ng MD PCP - General 12/31/17 documented as of this encounter
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
--- OUTSIDE RECORDS SUMMARY | 2025-05-01 23:57 | XMS_ITS | Encounter Summary ---
Author Organization [employer] Address [address] [place] [address] [address] [place] [address] Care Team Providers Care Wool Handler Name Role Phone Venus Helms MD Primary Care Provider [phone] Reason for Visit * Reason Comments Med Refill Encounter Details Date Type Department Care Team ([facility] st Contact Info) Description 04/23/2024 Refill [facility] [address], [place] [id number] Stephanie Clark MD [address] [place] [address] Anxiety Social History Tobacco Use Types Packs/Day Years Used Date Smoking Tobacco: Every Day Cigarettes Smokeless Tobacco: Never Alcohol Use Standard Drinks/Week Comments Never 0 (1 standard drink = 0.6 oz pur e alcohol) Comments No Sex and Gender Information Value Date Recorded Sex Assigned at Female 02/04/2024 10:13 AM EDT Legal Sex Female 7:00 PM EDT Gender Identity Female 02/04/2024 10:13 AM EDT Sexual Orientation Straight 02/04/2024 10 :13 AM EDT documented as of this encounter Plan of Treatment Not on file documented as of this encounter Visit Diagnoses Diagnosis Anxiety Anxiety state, unspecified documented in this encounter Care Teams Wool Handler Relationship Specialty Start Date End Date Venus Helms MD [address], [place] [phone] PCP - General Family Medicine 07/05/[address] ScientistResearch Biologist 08/09/24 documented as of this encounter
--- OUTSIDE RECORDS SUMMARY | 2025-05-01 23:57 | XMS_ITS | Encounter Summary ---
Author Organization [employer] Address [address] [place] [address] [place] [address] Care Team Providers Care Passenger Service Manager Name Role Phone Venus Helms MD Primary Care Provider [phone] Reason for Visit * Reason Onset Date Comments Med Refill 03/29/2024 Encounter Details Date Type Department Care Team ([facility] st Contact Info) Description 03/29/2024 Telephone [facility] [address] [place] [address] Stephanie Clark MD [address] [place] [address] Med Refill Social History Tobacco Use Types Packs/Day Years [...] AM EDT documented as of this encounter Miscellaneous Notes * Telephone Encounter - Alfie Melvin - 03/29/2024 12:13 PM EDT TC from pt requesting medication refill. Medications needing refill : clonazePAM (KlonoPIN) 2 MG tablet To be sent to: [facility] - [place], [place] - [address] [place] [address] documented in this encounter Plan of Treatment Not on file documented as of this encounter Visit Diagnoses Not on filedocumented in this encounter Care Teams Passenger Service Manager Relationship Specialty Start Date End Date Venus Helms MD [address] [place] [address] PCP - General Family Medicine 07/05/24 Loni Salgado Hay BucklerTop Collar Maker 08/09/24 documented as of this encounter
--- OUTSIDE RECORDS SUMMARY | 2025-05-01 23:57 | XMS_ITS | Clinical Summary ---
Author Organization [employer] Address [address] [place] [address] Care Team Providers Care Air Operations Manager Name Role Phone Venus Helms MD Primary Care Provider [phone] Allergies Active Allergy Reactions Criticality Noted Date Comments Acetaminophen 02/04/2024 Latex Rash Low 07/06/2019 Pollen Extract 02/04/2024 Protective Adhesive Powder Metoclopramide 02/04/2024 Ondansetron 02/04/2024 Medications * This document contains information received from the source organization and may not represent a complete record from that organization. fluticasone (Flonase) 50 MCG/ACT nasal sprayIndication s:Mild persistent extrinsic asthma without complication Administer 1 spray into each nostril 2 times daily. Shake gently. Before first use, prime pump. After use, clean tip and replace cap. 16 g 025 Active haloperidol (Haldol) 0.5 MG tabletIndicatio ns:Anxiety Take 1 tablet (0.5 mg) by mouth every 8 (eight) hours if needed for agitation. 90 tablet 025 Active ipratropium-alb uterol (Duo-Neb) 0.5-2.5 mg/3 mL nebulizer solutionIndicat ions:Mild persistent extrinsic asthma without complication Take 3 mL by nebulization in the morning, at noon, and at bedtime. 180 mL 025 Active promethazine (Phenergan) 12.5 MG tabletIndicatio ns:Persistent vomiting 1 tab as needed up to TID 90 tablet 025 Active nicotine polacrilex (Commit) 2 MG lozenge Dissolve 1 lozenge (2 mg) in the mouth if needed for smoking cessation. 100 lozenge 025 2024 Active nicotine (Nicoderm CQ) 14 MG/24HR patch Place 1 patch on the skin 1 (one) time each day at the same time. 42 patch 025 2024 Active nicotine (Nicoderm CQ) 7 MG/24HR patch Place 1 patch on the skin 1 (one) time each day at the same time. 14 patch 025 2024 Active fluticasone-catherine meterol (Advair) 230-21 MCG/ACT inhaler Inhale 2 puffs in the morning and at bedtime. Rinse mouth with water after use to reduce aftertaste and incidence of candidiasis. Do not swallow. 12 g 3 025 2025 Active albuterol (2.5 MG/3ML) 0.083% nebulizer solution Take 3 mL (2.5 mg) by nebulization every 4 (four) hours if needed for wheezing. 75 mL 3 Active Ventolin HFA 108 (90 Base) MCG/ACT inhalerIndicati ons:Mild persistent extrinsic asthma without complication Inhale 2 puffs every 6 (six) hours if needed for wheezing. 18 g 3 Active Misc. Devices (Pulse Oximeter For Finger) misc 1 each 2 times daily. 1 each Active Nebulizer misc 1 kit Every 4-6 hours as needed (for shortness of breath and wheezing). Active albuterol (2.5 MG/3ML) 0.083% nebulizer solution Take 3 mL (2.5 mg) by nebulization every 4 (four) hours if needed for wheezing. 75 mL 3 025 2024 Discontinued(R eorder (will not trigger notification to Pharmacy)) Ventolin HFA 108 (90 Base) MCG/ACT inhalerIndicati ons:Mild persistent extrinsic asthma without complication Inhale 2 puffs every 6 (six) hours if needed for wheezing. 18 g 11 025 2024 Discontinued(R eorder (will not trigger notification to Pharmacy)) predniSONE (Deltasone) 10 MG tablet Take 4 tablets (40 mg) by mouth Once per day for 4 days, THEN 3 tablets (30 mg) Once per day for 4 days, THEN 2 tablets (20 mg) Once per day for 4 days, THEN 1 tablet (10 mg) Once per day for 4 days. 40 tablet 025 2024 trimethoprim-po lymyxin b (Polytrim) ophthalmic solution Administer 1 drop into both eyes 4 times daily for 7 days. 10 mL 025 2024 Hospital, Clinic, or Other Facility Administered Medication Ordered Dose Route Frequency Start Date End Date Status naloxone (Narcan) nasal spray 4 mgIndications:Opioid use disorder 4 mg NA Once 01/20/2025 Active ipratropium-albutero l (Duo-Neb) 0.5-2.5 mg/3 mL nebulizer solution 3 mgIndications:Wheezi ng 3 mg NEBULIZATION Once 04/05/2025 Active ipratropium-albutero l (Duo-Neb) 0.5-2.5 mg/3 mL nebulizer solution 3 mgIndications:Wheezi ng 3 mg NEBULIZATION Once 04/05/2025 04/05/2025 Ended Active Problems Problem Noted Date Diagnosed Date Seizures 04/12/2025 Assessment & Plan (04/12/2025 6:17 PM EDT): Unfortunately I do not have discharge documentation from facility at this time and last prescription on PDMP was on March 03, 2025 which means withdrawal is unlikely I let patient know I am not authorized to prescribe controlled substances to her I advised to follow-up with neurologist ED precautions were reviewed with patient Tobacco dependence 04/05/2025 Chronic prescription benzodiazepine use 12/02/19 Overview (02/07/2025): Dx: Anxiety Rx: Klonazepam 2mg TID Last FELLED SEAM OPERATOR CHAINSTITCH agreement: 01/19/25 Tier I (visit every month) Additional considerations: complicating social factors Timeline: negative utox for all substances 11/30/24 Negative utox for opioids, fentanyl, and benzo, positive for THC 02/04/25 Assessment & Plan (02/07/2025 5:19 PM EDT): Patient states that when she has medication, she is taking it as prescribed. However, her last two UDS have been negative for benzodiazepines. She denies selling her medication - will begin taper of benzodiazepines, offer CRS support at every visit - Klonopin 2mg TID 02/04/25 to 02/11/25 - Klonopin 2mg BID and Klonopin 1mg daily 02/12/25 to 02/19/25 - Klonopin 2mg at night and Klonopin 1mg BID 02/20/25 to 02/26/25 - Klonopin 1mg TID 02/27/25 to 03/06/25 Assessment & Plan (01/20/2025 7:38 AM EDT): Discussed FELLED SEAM OPERATOR CHAINSTITCH agreement, signed paperwork, how to safely use and store her medications. Narcan use, prescribed. Reviewed the high risk of overdose with opioids, kalyan Fentanyl and benzodiazepines. Reviewed that safely reducing her benzodiazepine dose slowly will be the goal. She met Starla Banda today and set up 02/28 at 1pm as initial FELLED SEAM OPERATOR CHAINSTITCH appointment. Consider referral to psychiatry. Pt requests not now. Reviewed safety concerns as primary, plan for not using opioids. Offered CRS services, pt declines. Thinks that her NA sponsor is sufficient. Assessment & Plan (12/01/2024 5:12 PM EDT): UDS negative today, including for benzodiazepines, which patient states that she took this morning. 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, 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 Trialed Gabapentin, that was not helpful Assessment & Plan (07/16/2024 5:50 AM EST): Feels Haldol 0.5mg (started by her previous psychiatrist) is more helpful for jumping and tingling sensations Tachycardia 02/05/2024 Assessment & Plan (02/05/2024 9:01 AM EDT): Mild tachycardic here ,reports is feeling anxious ,denies any CV symptoms Pulse is regular Persistent vomiting 07/19/2017 Assessment & Plan (07/16/2024 6:08 AM EST): This was thought to be due to marijuana induced vomiting She is using promethazine to control symptoms, and previous inpatient notes describe use of Haldol for persistent vomiting. Pt associates Haldol use for L arm neuropathy Extrinsic asthma 07/19/2017 Overview (07/16/2024): Dx since childhood Pt reports related to RSV infection in infancy Assessment & Plan (07/16/2024 6:01 AM EST): Not currently wheezing or coughing, experiencing SOB Continue outpatient meds Will refer to pulm for PFTs and medication adjustments/biologics Dysthymic disorder 11/01/2016 Overview (06/10/2024): Anxiety with depression (300.4) Onset: 11/01/2016 Added by: Marvin Crespo Migraine with aura 11/29/2015 Overview (06/10/2024): Migraine with aura, without mention of intractable migraine without mention of status migrainosus (346.00) Onset: 11/29/2015 Added by: Gustavo Whalen Idiopathic scoliosis and kyphoscoliosis 11/10/19 13 Overview (06/10/2024): Scoliosis (737.30) Onset: 11/09/2012 Added by: Erma Ng Diagnosis load November 2022 Anxiety Assessment & Plan (12/01/2024 5:09 PM EDT): Patient currently taking Klonopin 2mg TID Refill for one month, and see within that time frame to ensure compliance and signing of FELLED SEAM OPERATOR CHAINSTITCH agreement Ultimately, she will be transitioned to psychiatric provider, and she is searching for OP therapy not associated with her [facility] Assessment & Plan (07/16/2024 6:06 AM EST): Patient currently taking Klonopin 2mg TID Refill for one month, and see in 4-6 weeks to obtain further psych history, determine best place to be seen, enroll in FELLED SEAM OPERATOR CHAINSTITCH if staying with wv Assessment & Plan (06/29/2024 11:09 AM EST): Will renew clonazepam, will refer to for psych evaluation, no acitve suicidal/homicidal ideas Assessment & Plan (02/05/2024 9:00 AM EDT): I called her pharmacy and confirmed meds, the only one could not find refilled for long time was haldol -Refilled meds today only haldol will hold for now -pt will call w information of pharmacy where used to get haldol prescribed so we can confirm -pt to follow up w clinic for new pt apt PTSD (post-traumatic stress disorder) Resolved Problems Problem Noted Date Diagnosed Date Resolved Date Encounter for medical examin south to establish care 06/29/2024 01/20/2025 Assessment & Plan (06/29/2024 11:08 AM EST): Last pcp follow up about 1 year ago Hx of hospitalization: RSV Er visit in the last year:- Pmhx: anxiety/PTSD/MDD/Gerd Pshx: - All: as above Meds: as above No hx of Not sexually active No contraception Generalized anxiety disorder 08/11/2017 11/30/2024 Overview (02/05/2024): Anxiety, generalized (300.02) Onset: 08/11/2017 Added by: Luda Peña Encounters Date Type Department Care Team Description 04/12/2025 5:00 PM EDT Office Visit [facility] [address] [place] [phone] Stephanie Lynn MD Seizures (CMS/HCC) (Primary Dx) 04/12/2025 Travel 04/11/2025 Telephone [facility] [address], [place] [phone] Venus Helms MD 04/05/2025 9:00 AM EDT Office Visit [facility] [address] [phone] Jaya Gutiérrez MD Severe persistent asthma with (acute) exacerbation (Primary Dx); Hordeolum externum of right lower eyelid; Tobacco dependence; Wheezing; Mild persistent extrinsic asthma without complication 04/05/2025 Travel 02/11/2025 Telephone [facility] [address] [place] [phone] Venus Helms MD Med Refill 02/11/2025 Refill [facility] [address] [place] [phone] Venus Helms MD Anxiety 02/09/2025 Refill [facility] [address] [place] [phone] Venus Helms MD Anxiety 02/08/2025 Orders Only [facility] [address] [place] [phone] Venus Helms MD Fentanyl use disorder, severe (CMS/HCC) (Primary Dx); Convulsions, unspecified convulsion type (CMS/HCC) 02/08/2025 Telephone [facility] [address] [place] [phone] Venus Helms MD ER Follow-up (Pt seen in the ER 02/05/25 for being found unresponsive in grandparent's driveway with positive response to Narcan, admits to inhalation Fentanyl use) 02/07/2025 Telephone [facility] [address] [place] [phone] Ashley Gao RN NTTS f/up 02/04/2025 11:30 AM EDT Office Visit [facility] [address] [place] [address] [phone] Venus Helms MD Chronic prescription benzodiazepine use (Primary Dx); Anxiety; Mild persistent extrinsic asthma without complication; Persistent vomiting 02/04/2025 Refill [facility] [address] [place], [place] [phone] Venus Helms MD Anxiety from Last 3 Months Immunizations Immunization Administration Dates Next Due DTaP, 5 pertussis antigens 07/10/2002,,02/13/1998,12/15,1997 HPV, Quadrivalent 07/21/2009,05/18/2008,03/16/20 08 Hep A, ped/adol, 2 dose 06/24/2013,11/17/2012 Hep B, Adolescent or Pediatric 02/13/1998,1997,1997 Hib (PRP-T) 11/17/1998, 8,1997,10/27 IPV 07/10/2002, 9,1997,10/27 Influenza injectable quadriv alent preservative free 07/19/2017 MMR 07/10/2002,08/22/1998 Meningococcal MCV4P ACYW-135 11/22/2013,12/07/19 09 Tdap 12/06/2008 Varicella 07/30/2007,08/22/1998 Family History Medical History Relation Name Comments Crohn's disease Father TIANNA disease Father Stomach cancer Father Osteoarthritis Mother Stomach cancer Mother's Sister Relation Name Status Comments Father Mother Mother's Sister Social History Tobacco Use Types Packs/Day Years Used Date Smoking Tobacco: Every Day Cigarettes Passive Smoke Exposure: Current Smokeless Tobacco: Never Tobacco Cessation:Ready to Q uit: Not Asked; Counseling Given: Not Answered Alcohol Use Standard Drinks/Week Comments Never 0 (1 standard drink = 0.6 oz pur e alcohol) Depression Answer Date Recorded Patient Health Questionnaire-9 Score 20 01/20/2025 Patient Health Questionnaire-9 Score 20 01/20/2025 Last PHQ-9: Questionnaire Data Not on file 0 01/20/2025 Housing Stability Answer Date Recorded What is your housing situation today? I have klaudia vaughan 05/26/[address] you li ve. Do you have problems with any of the following? None of the above 05/26/2024 Food Insecurity Answer Date Recorded Within the past 12 months, y ou worried that your food would run out before you got money to buy more: Never True 05/26/2024 Within the past 12 months,th e food you bought just didn't last and you didn't have enough money to get more: Never True 09/2023 Transportation Answer Date Recorded In the past 12 months, has l ack of transportation kept you from medical appts, meetings, work or from getting things needed for daily living? No 05/26/2024 Intimate Partner Violence Answer Date R ecorded Within the last year, have y ou been afraid of your partner or ex-partner? 1 01/20/2025 Within the last year, have y ou been humiliated or emotionally abused in other ways by your partner or ex-partner? 1 Within the last year, have y ou been kicked, hit, slapped, or otherwise physically hurt by your partner or ex-partner? 1 01/20/2025 Within the last year, have y ou been raped or forced to have any kind of sexual activity by your partner or ex-partner? 1 01/20/2025 Utilities Answer Date Recorded In the past 12 months, has t he [employer], gas, oil or water company threatened to shut off services in your home? No 05/26/2024 Depression Answer Date Recorded Patient Health Questionnaire-2 Score 6 01/20/2025 Internet Access Answer Date Recorded Internet Access Q1 Yes 05/26/2024 Internet Access Q2 Not on file 05/26/2024 Comments No Sex and Gender Information Value Date Recorded Sex Assigned at Female 02/04/2024 10:13 AM EDT Legal Sex Female 7:00 PM EDT Gender Identity Female 02/04/2024 10:13 AM EDT Sexual Orientation Straight 02/04/2024 10 :13 AM EDT Last Filed Vital Signs Vital Sign Reading Time Taken Comments Blood Pressure 120/87 04/12/2025 4:42 PM EDT Pulse 113 04/12/2025 4:42 PM EDT Temperature 36.8 C (98.3 F) 04/12/2025 4:42 PM EDT Respiratory Rate 16 04/12/2025 4:42 PM EDT Oxygen Saturation 95% 04/12/2025 4:42 PM EDT Inhaled Oxygen Concentration - - Weight 44.2 kg (97 lb 8 oz) 04/12/2025 4:42 PM E DT Height 165.1 cm (5' 5 ) 04/12/2025 4:42 PM EDT Body Mass Index 16.22 04/12/2025 4:42 PM EDT Plan of Treatment Health Maintenance Due Date Last Done Comments HIV Screening 1997 Lipid Panel 1997 Disability Screening 1997 Alcohol/Substance Use Screening 2009 Hepatitis C Screening 2015 Pneumococcal Vaccine: Pediatrics (0 to 5 Years) and At-Risk Patients (6 to 49) Years (2 of 2 - PCV) 10/06/2019 10/06/2018 HPV/Cotest 09/12/2023 Pap Smear 09/12/2023 09/12/2020 COVID-19 Vaccine ( season) 2025 05/23/2022, 11/03/2020, 10/05/2020 Influenza Vaccine (#1) 2025 10/06/2018, 2016 SDOH Screening 05/26/2025 05/26/2024 Family Planning (PISQ) 07/16/2025 07/16/2024 Depression Monitoring 07/23/2025 01/20/2025, 025 Tobacco Screening 04/12/2026 04/12/2025 DTaP/Tdap/Td Vaccines (8 - Td or Tdap) 04/07/2032 04/07/2022, 12/06/2008, 07/10/2002, Additional history exists Zoster Vaccines (1 of 2) 2047 RSV Patients and Patients Aged 60 years or older (1 - 1-dose 75+ series) 2072 Hepatitis B Vaccines Completed 02/13/1998, 1997, 1997 HIB Vaccines Completed 11/17/1998, 01/24, 1997, Additional history exists IPV Vaccines Completed 07/10/2002, 07/26, 1997, Additional history exists HPV Vaccines Completed 07/21/2009, 04/26, 03/16/2008 Hepatitis A Vaccines Completed 06/24/2013, 11/18/19 13 Meningococcal Vaccine Completed 11/22/2013, 009 Meningococcal B Vaccine Aged Out No l onger eligible based on patient's age to complete this topic RSV under 20 months Aged Out No longe r eligible based on patient's age to complete this topic Rotavirus Vaccines Aged Out No longer eligible based on patient's age to complete this topic Procedures Procedure Name Priority Date/Time Associated Diagnosis Comments POCT INFLUENZA B (ID NOW RAPID MOLECULAR) Routine 04/05/2025 9:28 AM EDT Wheezing POCT INFLUENZA A (ID NOW RAPID MOLECULAR) Routine 04/05/2025 9:28 AM EDT Wheezing POCT RAPID COVID ANTIGEN Routine 04/05/2025 9:28 AM EDT Wheezing POCT RICHARD-14 URINE DRUG SCREEN Routine 02/04/2025 1:20 PM EDT Anxiety Chronic prescription benzodiazepine use HM PAP/HPV Routine 09/12/2020 1:45 PM EST from Last 3 Months or Most Recently Relevant to Health Maintenance Results * Influenza B (ID NOW Rapid Molecular) (04/05/2025 9:28 AM EDT) Influenza B Negative Negative, Indeterminate [facility] Swab 04/05/2025 9:28 AM EDT Jaya Gutiérrez MD POINT OF CARE TEST ENTER/EDIT OR DERABLES Final Result [facility] [address] [place] [phone] * Influenza A (ID NOW Rapid Molecular) (04/05/2025 9:28 AM EDT) Influenza A Negative Negative, Indeterminate [facility] Swab 04/05/2025 9:28 AM EDT Jaya Gutiérrez MD POINT OF CARE TEST ENTER/EDIT OR DERABLES Final Result Performing Organization Address [facility]/ZIP Co de Phone Number [facility] [address] [place] [phone] * POCT Rapid COVID Ag (04/05/2025 9:28 AM EDT) Rapid COVID Ag Negative [facility] Swab 04/05/2025 9:28 AM EDT Jaya Gutiérrez MD POINT OF CARE TEST ENTER/EDIT OR DERABLES Final Result Performing Organization Address [facility] Co de Phone Number [facility] [address] [place] [phone] * POCT RICHARD-14 Urine Drug Screen (02/04/2025 1:20 PM EDT) Urine Urine specimen obtained by clean catch procedure / Unknown 02/04/2025 1:20 PM EDT Narrative Jazmyn Sanders MA - 02/04/2025 1:23 PM EDT POS FOR THC NEG FOR ALL OTHER SUBSTANCES LOT #[id number] EXP 06-24-2026 Venus Helms MD POINT OF CARE TEST ENTER/EDIT ORDERABLES Final Result * HM PAP/HPV (09/12/2020 1:45 PM EST) Historical Provider HEALTH MAINTENANCE Final Result from Last 3 Months or Most Recently Relevant to Health Maintenance Insurance [facility] Care Teams Air Operations Manager Relationship Specialty Start Date End Date Venus Helms MD [address] [place] [phone] PCP - General Family Medicine 07/05/24 Loni Salgado Lanolin Plant OperatorCommercial Real Estate Sales Manager 08/09/24
--- OUTSIDE RECORDS SUMMARY | 2025-05-01 23:57 | XMS_ITS | Encounter Summary ---
Author Organization [employer] Address [address] [facility] [address] [place] [address] Care Team Providers Care Filter Press Tender Head Name Role Phone Venus Helms MD Primary Care Provider [phone] Encounter Details Date Type Department Care Team ([facility] st Contact Info) Description 06/17/2024 Orders Only [facility] [address] [place] [address] Stephanie Clark MD [address] [place] [address] Anxiety Social History Tobacco Use Types Packs/Day Years Used Date Smoking Tobacco: Every Day Cigarettes Smokeless Tobacco: Never Alcohol Use Standard Drinks/Week Comments Never 0 (1 standard drink = 0.6 oz pur e alcohol) Housing Stability Answer Date Recorded What is [...] things needed for daily living? No 05/26/2024 Utilities Answer Date Recorded In the past 12 months, has t he electric, gas, oil or water company threatened to shut off services in your home? No 05/26/2024 Internet Access Answer Date Recorded Internet Access [...] unspecified documented in this encounter Care Teams Filter Press Tender Head Relationship Specialty Start Date End Date Venus Helms MD [address] [place] [address] PCP - General Family Medicine 07/05/24 Loni Salgado Marine Electronics TechnicianDistrict Manager Major Accounts Sales 08/09/24 documented as of this encounter
--- OUTSIDE RECORDS SUMMARY | 2025-05-01 23:57 | XMS_ITS | Encounter Summary ---
Author Organization [employer] Address [address] [facility] [address] [place] [address] Care Team Providers Care Biztalk Architect Name Role Phone Venus Helms MD Primary Care Provider [phone] Reason for Referral * Consultation (Urgent) - Authorized Specialty Diagnoses / Procedures Referred By Contaric t Referred To Contact Neurology Diagnoses Convulsions, unspecified convulsion type (CMS/HCC) Venus Helms MD [address] [place] [address] Phone: tel: fax: [facility] [address] [place] [address] Drive [address] [place] [address] Phone: tel: fax: Referral ID Status Reason Start Date Expiration Date Visits Requested Visits Authorized [id number] Authorized Specialty Services Required 02/11/2025 02/11/2026 1 1 Encounter Details Date Type Department Care Team (Late st Contact Info) Description 02/08/2025 Orders Only [facility] [address] [place], [place] [phone] Venus Helms MD [address] [place], [place] [phone] Fentanyl use disorder, severe (CMS/HCC) (Primary Dx); Convulsions, unspecified convulsion type (CMS/HCC) Social History Tobacco Use Types Packs/Day Years [...] the past 12 months, has t he [employer], oil or water [employer] threatened to shut off services in your [...] as of this encounter Plan of Treatment Scheduled Referrals Name Type Priority Associated Diagnoses Orde r Schedule Referral to Neurology Outpatient Referral Urgent Convulsions, unspecified convulsion type (CMS/HCC) Expected: 02/11/2025 (Approximate), Expires: 02/11/2026 documented as of this encounter Visit Diagnoses Diagnosis Fentanyl use disorder, severe (CMS/HCC)- Primary Convulsions, unspecified convulsion type (CMS/HCC) documented in this encounter Additional Health Concerns Assessment Noted Time PHQ-9 Depression Total Score: 20 025 6:59 AM EDT documented as of this encounter Care Teams Biztalk Architect Relationship Specialty Start Date End Date Venus Helms MD [address] [place] [address] PCP - General Family Medicine 07/05/24 Loni Salgado Woods WardenLong Winder Tender 08/09/24 documented as of this encounter
--- OUTSIDE RECORDS SUMMARY | 2025-05-01 23:57 | XMS_ITS | Encounter Summary ---
Author Organization [email or web address] Address [address] [place] [address] Care Team Providers Care Patient Registration Rep Name Role Phone Venus Helms MD Primary Care Provider [phone] Reason for Visit * Reason Comments Med Refill Encounter Details Date Type Department Care Team ([facility] st Contact Info) Description 02/09/2025 Refill [facility] MEDICINE [address] [place] [address] Venus Helms MD [address] [place] [address] Anxiety Social History Tobacco Use Types Packs/Day [...] Anxiety state, unspecified documented in this encounter Additional Health Concerns Assessment Noted Time PHQ-9 Depression Total Score: 20 025 6:59 AM EDT documented as of this encounter Care Teams Patient Registration Rep Relationship Specialty Start Date End Date Venus Helms MD [address] [place] [address] PCP - General Family Medicine 07/05/24 Loni Salgado Delivery AssistantAnimal Damage Control Agent 08/09/24 documented as of this encounter
--- OUTSIDE RECORDS SUMMARY | 2025-05-01 23:57 | XMS_ITS | Encounter Summary ---
Author Organization [facility] Address [address] [place] [address] Phone Care Team Providers Care Oil Burner Technician Name Role Phone Erma Ng MD Primary Care Provider [phone] Encounter Details Date Type Department Care Team (Late st Contact Info) Description 11/29/2010 Conversion Encounter [facility] [address] [place] [address] Social History Tobacco Use Types Packs/Day Years Used Date Smoking Tobacco: Never Assessed Comments Unknown Sex and Gender Information Value Date Recorded Sex Assigned at Not on file Legal Sex Female 6:35 PM EDT Gender Identity Not on file Sexual Orientation Not on file documented as of this encounter Plan of Treatment Not on file documented as of this encounter Visit Diagnoses Not on filedocumented in this encounter Care Teams Oil Burner Technician Relationship Specialty Start Date End Date Erma Ng MD PCP - General 12/31/17 documented as of this encounter
--- OUTSIDE RECORDS SUMMARY | 2025-05-01 23:57 | XMS_ITS | Encounter Summary ---
Author Organization [employer] Address [address] [place] [address] Care Team Providers Care Patternmaker Helper Name Role Phone Venus Helms MD Primary Care Provider [phone] Reason for Visit * Reason Comments Med Refill Encounter Details Date Type Department Care Team ([facility] Contact Info) Description 07/29/2024 Refill [facility] MEDICINE [address] [place] [address] Venus Helms MD [address] [place] [address] Anxiety Social History Tobacco Use Types Packs/Day Years Used Date Smoking Tobacco: Every Day Cigarettes Smokeless Tobacco: Never Alcohol Use Standard Drinks/Week Comments Never 0 (1 standard drink = 0.6 oz pur e alcohol) Depression Answer Date Recorded Patient Health Questionnaire-9 Score 12 06/23/2024 Patient Health Questionnaire-9 Score 12 06/23/2024 Last PHQ-9: Questionnaire Data Not on file 1 Housing Stability Answer Date Recorded What is [...] Answer Date Recorded Patient Health Questionnaire-2 Score 4 06/23/2024 Internet Access Answer Date Recorded Internet Access [...] Assessment Noted Time PHQ-9 Depression Total Score: 12 024 2:03 PM EDT documented as of this encounter Care Teams Patternmaker Helper Relationship Specialty Start Date End Date Venus Helms MD [address] [place] [address] PCP - General Family Medicine 07/05/24 Loni Salgado Fabrication OperatorInformation Technology Architect 08/09/24 documented as of this encounter
--- OUTSIDE RECORDS SUMMARY | 2025-05-01 23:58 | XMS_ITS | Clinical Summary ---
Author Organization [facility] Address [address] [place] [address] Care Team Providers Care Transportation Manager Name Role Phone Unavailable Primary Care Provider Unavailabl e Social History Tobacco Use Types Packs/Day Years Used Date Smoking Tobacco: Never Assessed Comments Unknown Sex and Gender Information Value Date Recorded Sex Assigned at Not on file Legal Sex Female 6:43 PM EST Gender Identity Not on file Sexual Orientation Not on file Plan of Treatment Health Maintenance Due Date Last Done Comments DTaP,Tdap,and Td Vaccines (1 - Tdap) 2016 Hepatitis B Vaccines (1 of 3 - 19+ 3-dose series) 2016 Cervical Cancer Screening: P ap Smear 2018 HIV Screening 07/27/2022 Hepatitis C Screening 07/27/2022 Social Influencers of Health Screening 07/27/2022 COVID-19 Vaccine ( - 2023-2 5 season) 2024 Depression Screening 08/25/2024 Influenza Vaccine (#1) 2025 HIB Vaccines Aged Out No longer eligi ble based on patient's age to complete this topic HPV Vaccines Aged Out No longer eligi ble based on patient's age to complete this topic Hepatitis A Vaccines Aged Out No long er eligible based on patient's age to complete this topic IPV Vaccines Aged Out No longer eligi ble based on patient's age to complete this topic MMR Vaccines Aged Out No longer eligi ble based on patient's age to complete this topic Meningococcal ACWY Vaccine Aged Out N o longer eligible based on patient's age to complete this topic Meningococcal B Vaccine Aged Out No l onger eligible based on patient's age to complete this topic Pneumococcal Vaccine: Pediat rics (0 to 5 Years) and At-Risk Patients (6 to 49 Years) Aged Out No longer eligible b ased on patient's age to complete this topic RSV Immunization Patients Un ree 20 months Aged Out No longer eligible b ased on patient's age to complete this topic Varicella Vaccines Aged Out No longer eligible based on patient's age to complete this topic
--- OUTSIDE RECORDS SUMMARY | 2025-05-01 23:58 | XMS_ITS | Encounter Summary ---
Author Organization [employer] Address [address] [place] [address] Care Team Providers Care Airport Utility Worker Name Role Phone Venus Helms MD Primary Care Provider [phone] Reason for Visit * Reason Comments Med Refill Encounter Details Date Type Department Care Team ([facility] Contact Info) Description 02/11/2025 Refill [facility] MEDICINE [address] [place] [address] Venus Helms MD [address] [place] [address] Anxiety Social History Tobacco Use Types Packs/Day Years Used Date Smoking Tobacco: Every Day Cigarettes Smokeless Tobacco: Never Alcohol Use Standard Drinks/Week Comments Never 0 (1 standard drink = 0.6 oz pur e alcohol) Depression Answer Date Recorded Patient Health Questionnaire-9 Score 01/20/2025 Patient Health Questionnaire-9 Score 20 01/20/2025 [...] documented as of this encounter Care Teams Airport Utility Worker Relationship Specialty Start Date End Date Venus Helms MD [address] [place] [address] PCP - General Family Medicine 07/05/24 Loni Salgado Web Press Roll TenderNuclear Waste Process Operator 08/09/24 documented as of this encounter
--- OUTSIDE RECORDS SUMMARY | 2025-05-01 23:58 | XMS_ITS | Encounter Summary ---
Author Organization [employer] Address [address] [place] [address] Care Team Providers Care Tooling Manager Name Role Phone Venus Helms MD Primary Care Provider [phone] Encounter Details Date Type Department Care Team ([facility] st Contact Info) Description 09/08/2024 Orders Only [facility] MEDICINE [address] [place] [address] Venus Helms MD [address] [place] [address] Anxiety; Persistent vomiting Social History Tobacco Use Types Packs/Day Years [...] Visit Diagnoses Diagnosis Anxiety Anxiety state, unspecified Persistent vomiting documented in this encounter Additional Health Concerns Assessment Noted Time PHQ-9 Depression Total Score: 12 024 2:03 PM EDT documented as of this encounter Care Teams Tooling Manager Relationship Specialty Start Date End Date Venus Helms MD [address] [place] [address] PCP - General Family Medicine 07/05/24 Loni Salgado Senior Chemical Process EngineerAuto Rental Clerk 08/09/24 documented as of this encounter
--- OUTSIDE RECORDS SUMMARY | 2025-05-01 23:58 | XMS_ITS | Encounter Summary ---
Author Organization [employer] Address [address] [place] [id number] Care Team Providers Care Sprinkler Inspector Name Role Phone Venus Helms MD Primary Care Provider [phone] Reason for Visit * Reason Onset Date Comments Med Refill 09/08/2024 Encounter Details Date Type Department Care Team ([facility] st Contact Info) Description 09/08/2024 Refill [facility] MEDICINE [address] [place] [address] Stephanie Lynn MD [address] [place] [address] Anxiety Social History Tobacco Use Types Packs/Day [...] documented as of this encounter Care Teams Sprinkler Inspector Relationship Specialty Start Date End Date Venus Helms MD [address] [place] [address] PCP - General Family Medicine 07/05/24 Loni Salgado Computer Systems TechnicianPhysical Integration Practitioner 08/09/24 documented as of this encounter"
--- OUTSIDE RECORDS SUMMARY | 2025-05-01 23:58 | XMS_ITS | Encounter Summary ---
Author Organization [employer] Address [address] [place] [address] Care Team Providers Care Inventory Control Assistant Name Role Phone Venus Helms MD Primary Care Provider [phone] Reason for Visit * Reason Onset Date Comments Med Refill 09/08/2024 Encounter Details Date Type Department Care Team (Late st Contact Info) Description 09/08/2024 Refill [facility] MEDICINE [address] [place] [address] Venus Helms MD [address] [place] [address] Persistent vomiting; Anxiety Social History Tobacco Use Types Packs/Day [...] as of this encounter Visit Diagnoses Diagnosis Persistent vomiting Anxiety Anxiety state, unspecified documented in this encounter Additional Health Concerns Assessment Noted Time PHQ-9 Depression Total Score: 12 024 2:03 PM EDT documented as of this encounter Care Teams Inventory Control Assistant Relationship Specialty Start Date End Date Venus Helms MD [address] [place] [address] PCP - General Family Medicine 07/05/24 Loni Salgado Telecommunications Facility ExaminerDental Detail Representative 08/09/24 documented as of this encounter
--- OUTSIDE RECORDS SUMMARY | 2025-05-01 23:58 | XMS_ITS | Encounter Summary ---
Author Organization [employer] Address [address] [place] [address] Care Team Providers Care Hide Handler Name Role Phone Venus Helms MD Primary Care Provider [phone] Reason for Visit * Reason Comments Med Refill Encounter Details Date Type Department Care Team ([facility] st Contact Info) Description 02/04/2025 Refill [facility] MEDICINE [address] [place] [address] Venus Helms MD [address] [place] [address] Anxiety Social History Tobacco Use Types Packs/Day [...] documented as of this encounter Care Teams Hide Handler Relationship Specialty Start Date End Date Venus Helms MD [address] [place] [address] PCP - General Family Medicine 07/05/24 Loni Salgado Microsystems EngineerCable Puller 08/09/24 documented as of this encounter
--- OUTSIDE RECORDS SUMMARY | 2025-05-01 23:58 | XMS_ITS | Encounter Summary ---
Author Organization [employer] Address [address] [place] [address] Care Team Providers Care Food And Drug Research Scientist Name Role Phone Venus Helms MD Primary Care Provider [phone] Reason for Visit * Reason Onset Date Comments Med Refill 09/08/2024 Encounter Details Date Type Department Care Team (Late st Contact Info) Description 09/08/2024 Refill [facility] MEDICINE [address] [place] [address] Venus Helms MD [address] [place] [address] Anxiety; Persistent vomiting Social History Tobacco Use [...] documented as of this encounter Care Teams Food And Drug Research Scientist Relationship Specialty Start Date End Date Venus Helms MD [address] [place] [address] PCP - General Family Medicine 07/05/24 Loni Salgado Computer Programmer AnalystSpring Layer 08/09/24 documented as of this encounter
--- OUTSIDE RECORDS SUMMARY | 2025-05-01 23:58 | XMS_ITS | Encounter Summary ---
Author Organization [employer] Address [address] [place] [address] Care Team Providers Care Hide Worker Name Role Phone Venus Helms MD Primary Care Provider [phone] Encounter Details Date Type Department Care Team (Late st Contact Info) Description 10/07/2024 Orders Only [facility] MEDICINE [address] [place] [address] ProviderKasey MD Social History Tobacco Use Types Packs/Day Years [...] is your housing situation today? I have klaudiaterrence vaughan 05/26/[address] [...] on file documented as of this encounter Procedures Procedure Name Priority Date/Time Associated Diagnosis Comments HM PAP/HPV Routine 09/12/2020 1:45 PM EST documented in this encounter Results * HM PAP/HPV (09/12/2020 1:45 PM EST) us Historical Provider HEALTH MAINTENANCE Final Result documented in this encounter Visit Diagnoses Not on filedocumented in this encounter Additional Health Concerns Assessment Noted Time PHQ-9 Depression Total Score: 12 024 2:03 PM EDT documented as of this encounter Care Teams Hide Worker Relationship Specialty Start Date End Date Venus Helms MD [address] [place] [address] PCP - General Family Medicine 07/05/24 Loni Salgado Kerrick Kleaner OperatorBuilding Cleaner 08/09/24 documented as of this encounter
--- OUTSIDE RECORDS SUMMARY | 2025-05-01 23:58 | XMS_ITS | Encounter Summary ---
Author Organization [employer] Address [address] [place] [address] Care Team Providers Care Early Childhood Education Coordinator Name Role Phone Venus Helms MD Primary Care Provider [phone] Encounter Details Date Type Department Care Team ([facility] st Contact Info) Description 01/11/2025 Orders Only [facility] MEDICINE [address] [place] [address] Venus Helms MD [address] [place] [address] Anxiety Social History Tobacco Use Types Packs/Day [...] documented as of this encounter Care Teams Early Childhood Education Coordinator Relationship Specialty Start Date End Date Venus Helms MD [address] [place] [address] PCP - General Family Medicine 07/05/24 Loni Salgado Bean Sprout GrowerMining Support Worker 08/09/24 documented as of this encounter
--- NOTE | 2025-05-02 00:25 | ED_ITS ---
HPI - Skin/Abscess/Foreign Bdy General Chief complaint: Skin/Abscess/Foreign Body Stated complaint: upper lip wound Time Seen by Provider: 05/01/25 23:55 History of Present Illness HPI narrative: Patient is a 29-year-old female presented today with having swollen area over the right upper lip. There is no fever no chills. Patient has a history of recreational drug use usually sniffs heroin/fentanyl. Never injects drugs. Patient worry about her boyfriend having gonorrhea chlamydia. Patient has been having oral sex with him. No coughing congestion or upper respiratory symptoms. No diaphoresis. The area has gotten worse over the last 2 days. Patient state her mom tried to poke it with a needle to no success. Came to the ED for help. Related Data Home Medications ?Medication ?Instructions ?Recorded ?Confirmed clonidine HCl 0.1 mg tablet 0.1 mg PO TID PRN ANXIETY 02/18/23 10/26/23 albuterol sulfate 90 mcg/actuation 2 puff inhalation Q 6H PRN wheezing 06/12/23 10/26/23 aerosol inhaler (Ventolin HFA) clonazepam 2 mg tablet 2 mg PO BID Anxiety 06/12/23 10/26/23 fluticasone 500 mcg-salmeterol 50 1 ea inhalation BID PRN Shortness 06/12/23 10/26/23 mcg/dose blistr powdr for Of Breath Or Wheezing inhalation (Advair Diskus) ipratropium 0.5 mg-albuterol 3 mg 3 ml inhalation QID PRN WHEEZING 06/12/23 10/26/23 (2.5 mg base)/3 mL nebulization soln gabapentin 600 mg tablet 600 mg PO BEDTIME 06/21/23 0 10/26/23 clonazepam 2 mg tablet 2 mg PO DAILY PRN Anxiety 10/26/23 fluticasone propionate 50 1 spray intranasal Q12H PRN 10/26/23 10/26/23 mcg/actuation nasal Allergy Symptoms spray,suspension fluvoxamine 100 mg tablet 100 mg PO BEDTIME 10/26/23 0 10/26/23 methadone 10 mg/mL oral concentrate 20 mg PO QPM 10/2510/26/23 methadone 10 mg/mL oral concentrate 60 mg PO QAM 10/2510/26/23 promethazine 12.5 mg tablet 12.5 mg PO BID nausea 03/11/1510/26/23 Previous Rx's ?Medication ?Instructions ?Recorded ipratropium 0.5 mg-albuterol 3 mg 3 ml inhalation RQ4H WHILE AWAKE 10/27/23 (2.5 mg base)/3 mL nebulization #180 mL soln prednisone 20 mg tablet 20 mg PO DAILY #7 tabs 10/26 albuterol sulfate 2.5 mg/3 mL 2.5 mg (3 mL) inhalation Q6H #75 mL 10/31/23 (0.083 %) solution for nebulization albuterol sulfate 90 mcg/actuation 2 inh inhalation Q4 -6H PRN 10/31/23 breath activated powder inhaler shortness of breath or wheezing #1 ea azithromycin 250 mg tablet See Rx Instructions PO .COM PLEX #6 10/31/23 tabs prednisone 50 mg tablet 50 mg PO DAILY 5 days #5 tab s 10/31/23 cefuroxime axetil 250 mg tablet 250 mg PO BID 7 days # 14 tabs 11/25/23 amoxicillin 875 mg-potassium 1 tab PO BID #14 tabs clavulanate 125 mg tablet prednisone 10 mg tablet 10 mg PO DIRECTED #41 tab s 04/10/24 promethazine 25 mg tablet 25 mg PO TID PRN nausea and 04/10/24 vomiting #20 tabs clonazepam 2 mg tablet 2 mg PO TID #21 tabs 4 oxycodone 5 mg tablet 5 mg PO Q6H PRN severe pain (scale 06/11/24 score 7-10) #12 tabs promethazine 12.5 mg tablet 12.5 mg PO BID #21 tabs promethazine 12.5 mg tablet 12.5 mg PO TID PRN nausea and 06/11/24 vomiting #21 tabs azithromycin 250 mg tablet See Rx Instructions PO .COM PLEX #6 07/04/24 tabs prednisone 20 mg tablet 40 mg (2 x 20 mg) PO DAILY # 10 tabs 07/04/24 cephalexin 500 mg capsule 500 mg PO QID 7 days #28 cap s 09/13/24 doxycycline hyclate 100 mg capsule 100 mg PO BID 7 day s #14 caps 09/13/24 clonazepam 2 mg tablet 2 mg PO BID #6 tabs 11/15/24 ciprofloxacin HCl 500 mg tablet 500 mg PO BID 7 days # 14 tabs 11/21/24 albuterol sulfate 90 mcg/actuation 2 puff inhalation Q 4-6H PRN 01/15/25 aerosol inhaler shortness of breath or wheez ing #8.5 grams prednisone 20 mg tablet 40 mg (2 x 20 mg) PO DAILY # 10 tabs 01/15/25 cephalexin 500 mg capsule 500 mg PO BID #14 caps 03/03 clonazepam 2 mg tablet (Klonopin) 2 mg PO TID #10 tabs 03/03/25 doxycycline hyclate 100 mg capsule 100 mg PO BID #14 c aps 03/03/25 erythromycin 5 mg/gram (0.5 %) eye 1 appl ophthalmic ( eye) DAILY #3.5 03/03/25 ointment grams doxycycline hyclate 100 mg capsule 100 mg PO BID cough 10 days #20 05/02/25 caps Allergies Allergy/AdvReac Type Severity Reaction Status Date / Time latex (LATEX) Allergy Intermediate RASH Verified 05/01/25 23:52 ondansetron (From Zofran) Allergy Intermediate Shortness Verified 05/01/25 23:52 of Breath propranolol Allergy Intermediate Shortness Verified 05/01/25 23:52 of Breath acetaminophen Allergy Difficulty Verified 05/01/25 23:52 Breathing adhesive tape (ADHESIVE TAPE) AdvReac Intermediate RASH Verified 05/01/25 23:52 Review of Systems Review of Systems: Positive redness to the upper lip Yes all other systems are reviewed and are negative PMFSH Past Medical History Attestation statement: The following information was validated with the patient. Medical History Mood disorder Polysubstance abuse Pneumonitis Asthma Asthma Pneumonia due to COVID-19 virus COVID-19 Bipolar disorder PTSD (post-traumatic stress disorder) Depression Anxiety Asthma GERD (gastroesophageal reflux disease) Crohn's disease Opioid use disorder Family History Family History Father Colon cancer Mother No problems noted. Brother Autism Sister Bipolar disorder Maternal Aunt Breast cancer Social History Social History Household Members: None Housing: [facility]ment [facility] Do you presently have visiting nurse or other home services: No Unable to assess alcohol history related to: Unknown Alcohol intake: never Patient Tobacco Use Status: Former Tobacco user Cigarette Packs Per Day: 0.33 Cigarettes Per Day: 6.6 Years Smoked: 9 Smoked in Last 30 Days: No e-Cigarette/Vaping Use: Former Use Second Hand Smoke Exposure: Yes Substance Use Type: Opiates Advance Directives: Yes Advance Directives on File: Yes Advance Directives Date on File: 05/07/21 service: No Current occupational status: unemployed Cognitive needs: No Hearing needs: No Vision needs: No Physical Exam Exam: Exam: Appearance: Alert. Oriented X3. No acute distress. Eyes: Pupils equal, round and reactive to light. ENT: Pharynx normal.I palpated patient's gum there is no gross abscess that was palpable. Posterior pharynx was normal Neck: Normal inspection. Neck supple. No lymph nodes noted. No crepitus CVS: Normal heart rate and rhythm. Pulses normal. Normal S1 and S2 Respiratory: No respiratory distress. Breath sounds normal. No Wheezing. No rales Abdomen: Soft and nontender. No rigidity. No distention. good BS x4 Skin: Positive redness area over the right upper lip. There is no gross fluctuance noted. There is some induration approximately 1.5 cm x 1.5 cm in size. Extremities: No lower extremity edema. Neurovascular intact to all extremities. No Lacerations. No Rash Neuro: Oriented X 3. No motor deficit. No sensory deficit. Moving all extermities. No slurred speech Vital Signs: Vital Signs: Last Vital Signs Temp 97.9 F 05/01/25 23:46 Pulse 127 H 05/01/25 23:46 Resp 18 05/01/25 23:46 BP 107/77 05/01/25 23:46 Pulse Ox 94 05/01/25 23:46 O2 Del Method Room Air 05/01/25 23:46 BMI result Body Mass Index 16.1 Medical Decision Making Medical Decision Making [facility] Narrative: Patient concerned about STD will treat patient empirically for gonorrhea chlamydia. chlamydia was sent. A dose of Rocephin was given IM. Patient has an area of induration consistent with cellulitis. At this time doubt there is any fluctuance the [place]. [place] less likely patient has an abscess. Elected to treat patient empirically with doxycycline for the gonorrhea chlamydia and for the cellulitis. Explained to patient her wound is on her face. A-C central if she develops fever chills a come back immediately. She is in no distress. Otherwise well. She does have a tachycardia that appears to be regular patient states that every time she sees a doctor she gets very anxious. Feel somewhat anxious at this time. Chronically is on methadone but denies any history of IV drug use. Patient is to be discharged home. Differential Diagnosis Differential Diagnoses: The differential diagnosis associated with the presentation includes Abscess, STD, cellulitis Admission/Observation Consideration of admission/observation: Escalation of care including admission/observation considered Social Determinants Patient?s care significantly limited by Social Determinants of Health including: Low income, Alcoholism and drug addiction in family, Problems related to primary support group, Unemployment and Other Social Determinant of Health Discharge Plan Discharge Clinical Impression: Cellulitis, Exposure to STD Patient Disposition: Home, Self-Care Instructions: Sexually Transmitted Diseases (ED), Cellulitis (ED) Additional Instructions: You were treated for gonorrhea and chlamydia. Please follow-up with your primary physician. There is an infection on your upper lip. Please closely follow-up with your primary physician. Worsening condition return immediately. Fever chills return immediately. Please take all your antibiotics. Prescriptions: New doxycycline hyclate 100 mg capsule 100 mg PO BID 10 Days Qty: 20 0RF No Action clonidine HCl 0.1 mg tablet 0.1 mg PO TID PRN (Reason: ANXIETY ) fluticasone propion-salmeterol [Advair Diskus] 500-50 mcg/dose blister with device 1 ea INHALATION BID PRN (Reason: Shortness Of Breath Or Wheezing) albuterol sulfate [Ventolin HFA] 90 mcg/actuation HFA aerosol inhaler 2 puff inhalation Q6H PRN (Reason: wheezing) clonazepam 2 mg Tablet 2 mg PO BID ipratropium-albuterol 0.5 mg-3 mg(2.5 mg base)/3 mL solution for nebulization 3 ml inhalation QID PRN (Reason: WHEEZING ) gabapentin 600 mg tablet 600 mg PO BEDTIME cefuroxime axetil 250 mg tablet 250 mg PO BID 7 Days Qty: 14 0RF oxycodone 5 mg tablet 5 mg PO Q6H PRN (Reason: severe pain (scale score 7-10)) Qty: 12 0RF Rx Instructions: Partial Fill upon patient request. promethazine 12.5 mg tablet 12.5 mg PO TID PRN (Reason: nausea and vomiting) Qty: 21 0RF clonazepam 2 mg tablet 2 mg PO TID Qty: 21 0RF promethazine 12.5 mg tablet 12.5 mg PO BID Qty: 21 0RF clonazepam 2 mg tablet 2 mg PO BID Qty: 6 0RF ciprofloxacin HCl 500 mg tablet 500 mg PO BID 7 Days Qty: 14 0RF promethazine 12.5 mg tablet 12.5 mg PO BID fluvoxamine 100 mg tablet 100 mg PO BEDTIME clonazepam 2 mg tablet 2 mg PO DAILY PRN (Reason: Anxiety) methadone 10 mg/mL Concentrate 60 mg PO QAM methadone 10 mg/mL Concentrate 20 mg PO QPM fluticasone propionate 50 mcg/actuation spray,suspension 1 spray intranasal Q12H PRN (Reason: Allergy Symptoms) Rx Instructions: administer into each nostril ipratropium-albuterol 0.5 mg-3 mg(2.5 mg base)/3 mL Solution For Nebulization 3 ml inhalation RQ4H WHILE AWAKE Qty: 180 0RF Rx Instructions: Use DuoNeb updraft every 4 hours while awake x2 days then as needed prednisone 20 mg tablet 20 mg PO DAILY Qty: 7 0RF Rx Instructions: Take with food albuterol sulfate 2.5 mg /3 mL (0.083 %) solution for nebulization 2.5 mg inhalation Q6H Qty: 75 0RF albuterol sulfate 90 mcg/actuation aerosol powdr breath activated 2 inh inhalation Q4-6H PRN (Reason: shortness of breath or wheezing) Qty: 1 0RF azithromycin 250 mg tablet See Rx Instructions .ROUTE .COMPLEX Qty: 6 0RF Rx Instructions: For 250 mg dose pack: take 500 mg today (day 1), then 250 mg for 4 days (days 2-5) prednisone 50 mg tablet 50 mg PO DAILY 5 Days Qty: 5 0RF amoxicillin-pot clavulanate 875-125 mg tablet 1 tab PO BID Qty: 14 0RF promethazine 25 mg tablet 25 mg PO TID PRN (Reason: nausea and vomiting) Qty: 20 0RF prednisone 10 mg tablet 10 mg PO DIRECTED Qty: 41 0RF Rx Instructions: see taper instructions 60mg on day 1-5, 40mg on day 6, 30mg on day 7, 20mg on day 8, 10mg on day 9, 5mg on day 10 azithromycin 250 mg tablet See Rx Instructions .ROUTE .COMPLEX Qty: 6 0RF Rx Instructions: For 250 mg dose pack: take 500 mg today (day 1), then 250 mg for 4 days (days 2-5) prednisone 20 mg tablet 40 mg PO DAILY Qty: 10 0RF doxycycline hyclate 100 mg capsule 100 mg PO BID 7 Days Qty: 14 0RF cephalexin 500 mg capsule 500 mg PO QID 7 Days Qty: 28 0RF prednisone 20 mg tablet 40 mg PO DAILY Qty: 10 0RF albuterol sulfate 90 mcg/actuation HFA aerosol inhaler 2 puff inhalation Q4-6H PRN (Reason: shortness of breath or wheezing) Qty: 8.5 0RF clonazepam [Klonopin] 2 mg tablet 2 mg PO TID Qty: 10 0RF doxycycline hyclate 100 mg capsule 100 mg PO BID Qty: 14 0RF cephalexin 500 mg capsule 500 mg PO BID Qty: 14 0RF erythromycin 5 mg/gram (0.5 %) ointment 1 appl ophthalmic (eye) DAILY Qty: 3.5 0RF Referrals: [facility] [Physician, Medical] - 05/04/25 Print Language: Mexican
[2025-05-02] MEDS: cefTRIAXone sodium 500 MG, Lidocaine HCl 1 % MPF 1 ML IM (00:47)
[2025-05-02 00:49] LABS: UPreg QC Valid YES
[2025-05-02 00:56] LABS: Cannabinoid Screen Urine Not Detected (Not Detect)
[2025-05-02 01:08] VITALS: BP 107/77; PULSE 97; RESP 18; TEMP 36.6; O2SAT 94
[2025-05-02 02:31] LABS: CT PCR Urine NOT DETECTED (Not Detect.); NG PCR Urine NOT DETECTED (Not Detect.)
== END 2025-05-02 01:11 | disposition home or self-care (01) ==
PROVIDERS: Emergency Provider Emergency Medicine Emergency Medical Services
DX: K13.0 Diseases of lips (principal); Z51.81 Encounter for therapeutic drug level monitoring; Z20.2 Contact with and (suspected) exposure to infections with a predominantly sexual mode of transmission; Z79.899 Other long term (current) drug therapy; Z87.891 Personal history of nicotine dependence
CPT/HCPCS: 80307; 81025; 87491; 87591; 96372; 99284; J0696; J2003

== ENCOUNTER 2025-05-15 18:49 | Emergency (ER) | payer MEDICAID, SELFPAY ==
[2025-05-15 18:54] VITALS: BP 137/111; PULSE 101; RESP 20; TEMP 36.3; O2SAT 92; BMI 17.0
--- NOTE | 2025-05-15 18:54 | ED.GENADULT ---
HPI - General Adult General Chief complaint: General Medical Stated complaint: ?Rash Related Data Home Medications ?Medication ?Instructions ?Recorded ?Confirmed clonidine HCl 0.1 mg tablet 0.1 mg PO TID PRN ANXIETY 02/18/23 10/26/23 albuterol sulfate 90 mcg/actuation 2 puff inhalation Q6H PRN wheezing 06/12/23 10/26/23 aerosol inhaler (Ventolin HFA) clonazepam 2 mg tablet 2 mg PO BID Anxiety 06/12/23 10/26/23 fluticasone 500 mcg-salmeterol 50 1 ea inhalation BID PRN Shortness 06/12/23 10/26/23 mcg/dose blistr powdr for Of Breath Or Wheezing inhalation (Advair Diskus) ipratropium 0.5 mg-albuterol 3 mg 3 ml inhalation QID PRN WHEEZING 06/12/23 10/26/23 (2.5 mg base)/3 mL nebulization soln gabapentin 600 mg tablet 600 mg PO BEDTIME 06/21/23 10/26/23 clonazepam 2 mg tablet 2 mg PO DAILY PRN Anxiety 10/26/23 10/26/23 fluticasone propionate 50 1 spray intranasal Q12H PRN 10/26/23 10/26/23 mcg/actuation nasal Allergy Symptoms spray,suspension fluvoxamine 100 mg tablet 100 mg PO BEDTIME 10/26/23 10/26/23 methadone 10 mg/mL oral concentrate 20 mg PO QPM 10/26/23 10/26/23 methadone 10 mg/mL oral concentrate 60 mg PO QAM 10/26/23 10/26/23 promethazine 12.5 mg tablet 12.5 mg PO BID nausea 10/26/23 10/26/23 Previous Rx's ?Medication ?Instructions ?Recorded ipratropium 0.5 mg-albuterol 3 mg 3 ml inhalation RQ4H WHILE AWAKE 10/27/23 (2.5 mg base)/3 mL nebulization #180 mL soln prednisone 20 mg tablet 20 mg PO DAILY #7 tabs 10/27/23 albuterol sulfate 2.5 mg/3 mL 2.5 mg (3 mL) inhalation Q6H #75 mL 10/31/23 (0.083 %) solution for nebulization albuterol sulfate 90 mcg/actuation 2 inh inhalation Q4-6H PRN 10/31/23 breath activated powder inhaler shortness of breath or wheezing #1 ea azithromycin 250 mg tablet See Rx Instructions PO .COMPLEX #6 10/31/23 tabs prednisone 50 mg tablet 50 mg PO DAILY 5 days #5 tabs 10/31/23 cefuroxime axetil 250 mg tablet 250 mg PO BID 7 days #14 tabs 11/25/23 amoxicillin 875 mg-potassium 1 tab PO BID #14 tabs 04/10/24 clavulanate 125 mg tablet prednisone 10 mg tablet 10 mg PO DIRECTED #41 tabs 04/10/24 promethazine 25 mg tablet 25 mg PO TID PRN nausea and 04/10/24 vomiting #20 tabs clonazepam 2 mg tablet 2 mg PO TID #21 tabs 06/11/24 oxycodone 5 mg tablet 5 mg PO Q6H PRN severe pain (scale 06/11/24 score 7-10) #12 tabs promethazine 12.5 mg tablet 12.5 mg PO BID #21 tabs 06/11/24 promethazine 12.5 mg tablet 12.5 mg PO TID PRN nausea and 06/11/24 vomiting #21 tabs azithromycin 250 mg tablet See Rx Instructions PO .COMPLEX #6 07/04/24 tabs prednisone 20 mg tablet 40 mg (2 x 20 mg) PO DAILY #10 tabs 07/04/24 cephalexin 500 mg capsule 500 mg PO QID 7 days #28 caps 09/13/24 doxycycline hyclate 100 mg capsule 100 mg PO BID 7 days #14 caps 09/13/24 clonazepam 2 mg tablet 2 mg PO BID #6 tabs 11/15/24 ciprofloxacin HCl 500 mg tablet 500 mg PO BID 7 days #14 tabs 11/21/24 albuterol sulfate 90 mcg/actuation 2 puff inhalation Q4-6H PRN 01/15/25 aerosol inhaler shortness of breath or wheezing #8.5 grams prednisone 20 mg tablet 40 mg (2 x 20 mg) PO DAILY #10 tabs 01/15/25 cephalexin 500 mg capsule 500 mg PO BID #14 caps 03/03/25 clonazepam 2 mg tablet (Klonopin) 2 mg PO TID #10 tabs 03/03/25 doxycycline hyclate 100 mg capsule 100 mg PO BID #14 caps 03/03/25 erythromycin 5 mg/gram (0.5 %) eye 1 appl ophthalmic (eye) DAILY #3.5 03/03/25 ointment grams doxycycline hyclate 100 mg capsule 100 mg PO BID cough 10 days #20 05/02/25 caps Allergies Allergy/AdvReac Type Severity Reaction Status Date / Time latex (LATEX) Allergy Intermediate RASH Verified 05/15/25 18:59 ondansetron (From Zofran) Allergy Intermediate Shortness Verified 05/15/25 18:59 of Breath propranolol Allergy Intermediate Shortness Verified 05/15/25 18:59 of Breath acetaminophen Allergy Difficulty Verified 05/15/25 18:59 Breathing prochlorperazine (From Allergy Swelling Verified 05/15/25 19:00 Compazine) adhesive tape (ADHESIVE TAPE) AdvReac Intermediate RASH Verified 05/15/25 18:59 PMFSH Past Medical History Medical History Mood disorder Polysubstance abuse Pneumonitis Asthma Asthma Pneumonia due to COVID-19 virus COVID-19 Bipolar disorder PTSD (post-traumatic stress disorder) Depression Anxiety Asthma GERD (gastroesophageal reflux disease) Crohn's disease Opioid use disorder Family History Family History Father Colon cancer Mother No problems noted. Brother Autism Sister Bipolar disorder Maternal Aunt Breast cancer Social History Social History Household Members: None Housing: Apartment Housing Other:: motel Do you presently have visiting nurse or other home services: No Unable to assess alcohol history related to: Unknown Alcohol intake: never Patient Tobacco Use Status: Former Tobacco user Cigarette Packs Per Day: 0.33 Cigarettes Per Day: 6.6 Years Smoked: 9 e-Cigarette/Vaping Use: Former Use Second Hand Smoke Exposure: Yes Substance Use Type: Opiates Advance Directives: Yes Advance Directives on File: Yes Advance Directives Date on File: 05/07/21 service: No Current occupational status: unemployed Cognitive needs: No Hearing needs: No Vision needs: No Physical Exam ED Vital Signs: BMI result Body Mass Index 17.0 Course Course Course Narrative: This is a rapid medical exam performed by Isabela Cronin NP: Additional HPI, ROS, PE not included below will be deferred to primary provider. Patient is a 29-year-old female with pmhx of OUD, mood disorder, asthma, Bipolar disorder, PTSD, Crohn's presenting to the ED with report of fevers, weakness, seizures with no sz history. Reports that she recently fractured a tooth and states that tissue has been coming out of her gums where the tooth was. Also reports facial pain that feels like bruising, hoarse voice. States all symptoms have been for the last 2-3 days. Plan: labs Patient left the emergency department before myself or any of the other clinicians could review or explain physical exam findings, test results, need or lack there of for additional testing, treatment options, or a treatment plan. Medical Decision Making Lab Data 05/15/25 20:09 05/15/25 20:09 Labs: Lab Results 05/15/25 Range/Units 20:09 WBC 7.0 (4.8-10.8) X10*3/uL RBC 4.61 (4.20-5.50) X10*6/uL Hgb 13.4 (12.0-16.0) g/dl Hct 40.3 (37.0-47.0) % MCV 87.4 (80.0-98.0) fL MCH 29.1 (27.0-33.0) pg MCHC 33.3 (31.0-35.0) g/dl RDW 13.8 (11.0-16.0) % Plt Count 235 (160-400) X10*3/uL MPV 9.6 (9.4-12.3) fL Immature Gran % (Auto) 0.1 (0.0-0.4) % Neut % (Auto) 62.1 (45-73) % Lymph % (Auto) 20.1 (20-40) % [place] % (Auto) 11.3 H (2-11) % Eos % (Auto) 6.1 H (0-4) % Baso % (Auto) 0.3 (0-2) % Lymph # (Auto) 1.4 (1.2-4.9) X10*3/uL [place] # (Auto) 0.8 (0.1-1.2) X10*3/uL Eos # (Auto) 0.4 (0.0-0.4) X10*3/uL Baso # (Auto) 0.0 (0.0-0.2) X10*3/uL Abs Immat Gran (auto) 0.01 (0.00-0.03) X10*3/uL Absolute Neuts (auto) 4.4 (2.0-8.3) x10*3/uL Absolute Nucleated RBC 0.000 (0.0-0.012) X10*3/uL Nucleated RBC % (auto) 0.0 (0.0-0.2) /100WBC ESR 16 (0-20) MM/HR Sodium 137 (135-145) mmol/L Potassium 3.9 (3.3-5.1) mmol/L Chloride 103 (96-108) mmol/L Carbon Dioxide 26 (22-29) mmol/L Anion Gap 12 (12-20) BUN 12 (9-16) mg/dL Creatinine 0.51 (0.5-1.4) mg/dL Estim Creat Clear Calc 121.0 Estimated GFR > 60 Random Glucose 92 (60-115) mg/dL Lactic Acid 1.0 (0.5-2.0) mmol/L Calcium 8.9 (8.4-10.2) mg/dL Magnesium 2.2 (1.6-2.6) mg/dL Total Bilirubin 0.2 (0.0-1.0) mg/dL AST 62 H (5-31) U/L ALT 67 H (0-31) U/L Alkaline Phosphatase 76 (39-117) U/L C-Reactive Protein 1.75 H (< or = 0.50) mg/dL Total Protein 7.6 (6.5-8.0) g/dL Albumin 4.3 (3.5-5.0) g/dL Beta HCG, Quant < 2 mIU/mL Discharge Plan Discharge Clinical Impression: Weakness Patient Disposition: Left W/O Completing Treatment Prescriptions: No Action clonidine HCl 0.1 mg tablet 0.1 mg PO TID PRN (Reason: ANXIETY ) fluticasone propion-salmeterol [Advair Diskus] 500-50 mcg/dose blister with device 1 ea INHALATION BID PRN (Reason: Shortness Of Breath Or Wheezing) albuterol sulfate [Ventolin HFA] 90 mcg/actuation HFA aerosol inhaler 2 puff inhalation Q6H PRN (Reason: wheezing) clonazepam 2 mg Tablet 2 mg PO BID ipratropium-albuterol 0.5 mg-3 mg(2.5 mg base)/3 mL solution for nebulization 3 ml inhalation QID PRN (Reason: WHEEZING ) gabapentin 600 mg tablet 600 mg PO BEDTIME cefuroxime axetil 250 mg tablet 250 mg PO BID 7 Days Qty: 14 0RF oxycodone 5 mg tablet 5 mg PO Q6H PRN (Reason: severe pain (scale score 7-10)) Qty: 12 0RF Rx Instructions: Partial Fill upon patient request. promethazine 12.5 mg tablet 12.5 mg PO TID PRN (Reason: nausea and vomiting) Qty: 21 0RF clonazepam 2 mg tablet 2 mg PO TID Qty: 21 0RF promethazine 12.5 mg tablet 12.5 mg PO BID Qty: 21 0RF clonazepam 2 mg tablet 2 mg PO BID Qty: 6 0RF ciprofloxacin HCl 500 mg tablet 500 mg PO BID 7 Days Qty: 14 0RF promethazine 12.5 mg tablet 12.5 mg PO BID fluvoxamine 100 mg tablet 100 mg PO BEDTIME clonazepam 2 mg tablet 2 mg PO DAILY PRN (Reason: Anxiety) methadone 10 mg/mL Concentrate 60 mg PO QAM methadone 10 mg/mL Concentrate 20 mg PO QPM fluticasone propionate 50 mcg/actuation spray,suspension 1 spray intranasal Q12H PRN (Reason: Allergy Symptoms) Rx Instructions: administer into each nostril ipratropium-albuterol 0.5 mg-3 mg(2.5 mg base)/3 mL Solution For Nebulization 3 ml inhalation RQ4H WHILE AWAKE Qty: 180 0RF Rx Instructions: Use DuoNeb updraft every 4 hours while awake x2 days then as needed prednisone 20 mg tablet 20 mg PO DAILY Qty: 7 0RF Rx Instructions: Take with food albuterol sulfate 2.5 mg /3 mL (0.083 %) solution for nebulization 2.5 mg inhalation Q6H Qty: 75 0RF albuterol sulfate 90 mcg/actuation aerosol powdr breath activated 2 inh inhalation Q4-6H PRN (Reason: shortness of breath or wheezing) Qty: 1 0RF azithromycin 250 mg tablet See Rx Instructions .ROUTE .COMPLEX Qty: 6 0RF Rx Instructions: For 250 mg dose pack: take 500 mg today (day 1), then 250 mg for 4 days (days 2-5) prednisone 50 mg tablet 50 mg PO DAILY 5 Days Qty: 5 0RF amoxicillin-pot clavulanate 875-125 mg tablet 1 tab PO BID Qty: 14 0RF promethazine 25 mg tablet 25 mg PO TID PRN (Reason: nausea and vomiting) Qty: 20 0RF prednisone 10 mg tablet 10 mg PO DIRECTED Qty: 41 0RF Rx Instructions: see taper instructions 60mg on day 1-5, 40mg on day 6, 30mg on day 7, 20mg on day 8, 10mg on day 9, 5mg on day 10 azithromycin 250 mg tablet See Rx Instructions .ROUTE .COMPLEX Qty: 6 0RF Rx Instructions: For 250 mg dose pack: take 500 mg today (day 1), then 250 mg for 4 days (days 2-5) prednisone 20 mg tablet 40 mg PO DAILY Qty: 10 0RF doxycycline hyclate 100 mg capsule 100 mg PO BID 7 Days Qty: 14 0RF cephalexin 500 mg capsule 500 mg PO QID 7 Days Qty: 28 0RF prednisone 20 mg tablet 40 mg PO DAILY Qty: 10 0RF albuterol sulfate 90 mcg/actuation HFA aerosol inhaler 2 puff inhalation Q4-6H PRN (Reason: shortness of breath or wheezing) Qty: 8.5 0RF clonazepam [Klonopin] 2 mg tablet 2 mg PO TID Qty: 10 0RF doxycycline hyclate 100 mg capsule 100 mg PO BID Qty: 14 0RF cephalexin 500 mg capsule 500 mg PO BID Qty: 14 0RF erythromycin 5 mg/gram (0.5 %) ointment 1 appl ophthalmic (eye) DAILY Qty: 3.5 0RF doxycycline hyclate 100 mg capsule 100 mg PO BID 10 Days Qty: 20 0RF Interventions: LWBS Worksheet Last Done: 05/15/25 23:01 Discharge Date/Time: 05/15/25 23:01
--- NOTE | 2025-05-15 19:19 | MHC.EDTECH ---
@[id number] Called patient for lab work, no answer
--- NOTE | 2025-05-15 19:35 | MHC.EDTECH ---
@[id number] Called patient into triage (2nd time) for blood work, No answer
[2025-05-15 20:16] LABS: MANUAL DIFF FLAG NO
[2025-05-15 20:19] LABS: Hematocrit 40.3 % (37.0-47.0); Hemoglobin 13.4 g/dl (12.0-16.0); Imm Gran Abs Auto 0.01 X10*3/uL (0.00-0.03); Imm Gran Pct Auto 0.1 % (0.0-0.4); Lymphocytes Absolute Auto 1.4 X10*3/uL (1.2-4.9); Mean Corpuscular HGB Conc 33.3 g/dl (31.0-35.0); Mean Corpuscular Hemoglobin 29.1 pg (27.0-33.0); Mean Corpuscular Volume 87.4 fL (80.0-98.0); NRBC Abs Auto 0.000 X10*3/uL (0.0-0.012); NRBC Pct Auto 0.0 /100WBC (0.0-0.2); Platelet Count 235 X10*3/uL (160-400); Red Blood Count 4.61 X10*6/uL (4.20-5.50); White Blood Count 7.0 X10*3/uL (4.8-10.8)
[2025-05-15 20:51] LABS: Albumin Level 4.3 g/dL (3.5-5.0); Alkaline Phosphatase 76 U/L (39-117); Anion Gap 12 (12-20); Aspartate Amino Transferase 62 U/L (5-31); Blood Urea Nitrogen 12 mg/dL (9-16); Calcium 8.9 mg/dL (8.4-10.2); Carbon Dioxide 26 mmol/L (22-29); Chloride 103 mmol/L (96-108); Creatinine Clr Calc Pharmacy 121.0; Estimated Glomerular Filt Rate > 60; Magnesium 2.2 mg/dL (1.6-2.6); Potassium 3.9 mmol/L (3.3-5.1); Sodium 137 mmol/L (135-145); Total Protein 7.6 g/dL (6.5-8.0)
[2025-05-15 20:54] LABS: Alanine Aminotransferase 67 U/L (0-31)
--- OUTSIDE RECORDS SUMMARY | 2025-05-15 23:04 | XMS_ITS | Encounter Summary ---
Author Organization [employer] Address [address] [facility] 7t [place] [address] Care Team Providers Care Sole Sewer Hand Name Role Phone Venus Helms MD Primary Care Provider [phone] Encounter Details Date Type Department Care Team ([facility] st Contact Info) Description 06/17/2024 Orders Only [facility] [address] [place] [address] Stephanie Clark MD [address] [place] [address] Anxiety Social History Tobacco Use Types Packs/Day [...] unspecified documented in this encounter Care Teams Sole Sewer Hand Relationship Specialty Start Date End Date Venus Helms MD [address] [place] [address] PCP - General Family Medicine 07/05/24 Loni Salgado Shuttle RepairerSimulation Tech 08/09/24 documented as of this encounter
--- OUTSIDE RECORDS SUMMARY | 2025-05-15 23:04 | XMS_ITS | Encounter Summary ---
Author Organization [employer] Address [address] [facility] 7t [place] [address] Care Team Providers Care Patient Financial Specialist Name Role Phone Venus Helms MD Primary Care Provider [phone] Reason for Referral * Consultation (Urgent) - Authorized Specialty Diagnoses / Procedures Referred By Contaric t Referred To Contact Neurology Diagnoses Convulsions, unspecified convulsion type (CMS/HCC) Venus Helms MD [address] [place] [address] Phone: tel: fax: [facility] [address] [place] [address] [address] [place] [address] Phone: tel: fax: Referral ID Status Reason Start Date Expiration Date Visits Requested Visits Authorized [id number] Authorized Specialty Services Required 02/11/2025 02/11/2026 1 1 Encounter Details Date Type Department Care Team (Late st Contact Info) Description 02/08/2025 Orders Only [facility] [address] [place], [place] [phone] Venus Helms MD [address] [place], [place] [phone] Fentanyl use disorder, severe (CMS/HCC) (Primary Dx); [...] the past 12 months, has t he [employer], [employer], oil or water [employer] threatened to shut off services in your [...] as of this encounter Care Teams Patient Financial Specialist Relationship Specialty Start Date End Date Venus Helms MD [address] [place] [address] PCP - General Family Medicine 07/05/24 Loni Salgado Mingle OperatorCard Lacer 08/09/24 documented as of this encounter
--- OUTSIDE RECORDS SUMMARY | 2025-05-15 23:04 | XMS_ITS | Encounter Summary ---
Author Organization [employer] Address [address] 7t [place] [address] Care Team Providers Care Commercial Lending Relationship Manager Name Role Phone Venus Helms MD Primary Care Provider [phone] Reason for Visit * Reason Comments Med Refill Encounter Details Date Type Department Care Team ([facility] st Contact Info) Description 02/09/2025 Refill [facility]INE [address] [place] [address] Venus Helms MD [address] [place] [address] Anxiety Social History Tobacco Use Types Packs/Day [...] documented as of this encounter Care Teams Commercial Lending Relationship Manager Relationship Specialty Start Date End Date Venus Helms MD [address] [place] [address] PCP - General Family Medicine 07/05/24 Loni Salgado Baker SecondHand Silvering Supervisor 08/09/24 documented as of this encounter
--- OUTSIDE RECORDS SUMMARY | 2025-05-15 23:04 | XMS_ITS | Encounter Summary ---
Author Organization [employer] Address [address] [facility] [address] 7t [place] [address] Care Team Providers Care Inspector And Sorter Name Role Phone Venus Helms MD Primary Care Provider [phone] Reason for Visit * Reason Comments Med Refill Encounter Details Date Type Department Care Team ([facility] Contact Info) Description 02/11/2025 Refill [facility]INE [address] [place] [address] Venus Helms MD [address] [place] [address] Anxiety Social History Tobacco Use Types Packs/Day [...] documented as of this encounter Care Teams Inspector And Sorter Relationship Specialty Start Date End Date Venus Helms MD [address] [place] [address] PCP - General Family Medicine 07/05/24 Loni Salgado Ball Points InspectorInhalation Therapy Aides Teacher 08/09/24 documented as of this encounter
--- OUTSIDE RECORDS SUMMARY | 2025-05-15 23:04 | XMS_ITS | Clinical Summary ---
Author Organization [employer] Address [address] 7[address] [place] [address] Care Team Providers Care Vehicle Refinisher Name Role Phone Venus Helms MD Primary Care Provider [phone] Allergies Active Allergy Reactions Criticality Noted Date Comments Acetaminophen 02/04/2024 Latex Rash Low 07/06/2019 Pollen Extract 02/04/2024 Protective Adhesive Powder Metoclopramide 02/04/2024 Ondansetron 02/04/2024 Medications * This document contains information received from the source organization and may not represent a complete record from that organization. 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 Shake gently. Before first use, prime pump. After use, clean tip and replace cap. 16 g 01/20/20 25 Active haloperidol (Haldol) 0.5 MG tabletIndication s:Anxiety Take 1 tablet (0.5 mg) by mouth every 8 (eight) hours if needed for agitation. 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 180 mL 02/05/20 25 Active promethazine (Phenergan) 12.5 MG tabletIndication s:Persistent vomiting 1 tab as needed up to TID 90 tablet 02/05/20 25 Active nicotine polacrilex (Commit) 2 MG lozenge Dissolve 1 lozenge (2 mg) in the mouth if needed for smoking cessation. 100 lozenge 04/05/20 25 Active nicotine (Nicoderm CQ) 14 MG/24HR patch Place 1 patch on the skin 1 (one) time each day at the same time. 42 patch 04/05/20 25 025 Active nicotine (Nicoderm CQ) 7 MG/24HR patch Place 1 patch on the skin 1 (one) time each day at the same time. 14 patch 04/05/20 25 Active fluticasone-salm eterol (Advair) 230-21 MCG/ACT inhaler Inhale 2 puffs in the morning and at bedtime. Rinse mouth with water after use to reduce aftertaste and incidence of candidiasis. Do not swallow. 12 g 3 04/05/20 25 026 Active albuterol (2.5 MG/3ML) 0.083% nebulizer solution Take 3 mL (2.5 mg) by nebulization every 4 (four) hours if needed for wheezing. 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 18 g 3 04/05/20 25 Active Misc. Devices (Pulse Oximeter For Finger) misc 1 each 2 times daily. 1 each 04/05/20 25 Active Nebulizer misc 1 kit Every 4-6 hours as needed (for shortness of breath and wheezing). Active predniSONE (Deltasone) 10 MG tablet Take 4 tablets (40 mg) by mouth Once per day for 4 days, THEN 3 tablets (30 mg) Once per day for 4 days, THEN 2 tablets (20 mg) Once per day for 4 days, THEN 1 tablet (10 mg) Once per day for 4 days. 40 tablet 04/05/20 25 025 Hospital, Clinic, or Other Facility Administered Medication Ordered Dose Route Frequency Start Date End Date Status naloxone (Narcan) nasal spray 4 mgIndications:Opioid use disorder 4 mg NA Once 01/20/2025 Active ipratropium-albuterol (Duo-Neb) 0.5-2.5 mg/3 mL nebulizer solution 3 mgIndications:Wheezing 3 mg NEBULIZATION Once 04/05/2025 Active Active Problems Problem Noted Date Diagnosed [...] Dx: Anxiety Rx: Klonazepam 2mg TID Last CHEMICAL BLENDER agreement: 01/19/25 Tier I (visit every month) [...] & Plan (01/20/2025 7:38 AM EDT): Discussed CHEMICAL BLENDER agreement, signed paperwork, how to safely use and store her medications. Narcan use, prescribed. Reviewed the high risk of overdose with opioids, kalyan Fentanyl and benzodiazepines. Reviewed that safely reducing her benzodiazepine dose slowly will be the goal. She met Starla Banda today and set up 02/28 at 1pm as initial CHEMICAL BLENDER appointment. Consider referral to psychiatry. Pt requests [...] frame to ensure compliance and signing of CHEMICAL BLENDER agreement Ultimately, she will be transitioned to psychiatric provider, and she is searching for OP therapy not associated with her skilled nursing Assessment & Plan (07/16/2024 6:06 AM EST): Patient currently taking Klonopin 2mg TID Refill for one month, and see in 4-6 weeks to obtain further psych history, determine best place to be seen, enroll in CHEMICAL BLENDER if staying with mo Assessment & Plan (06/29/2024 11:09 AM EST): [...] Date Resolved Date Encounter for medical [facility] to establish care 06/29/2024 01/20/2025 Assessment & [...] Encounters Date Type Department Care Team Description 05/15/2025 Orders Only GENERIC EXTERNAL DATA DEPARTMENT Provider, Generic External Data 04/12/2025 5:00 PM EDT Office Visit [facility] [address] [place] [address] Stephanie Lynn MD Seizures ([facility]) (Primary Dx) 04/12/2025 Travel 04/11/[address] [facility] [address] [place] [address] Venus Helms MD 04/05/2025 9:00 AM EDT Office Visit 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 04/05/2025 Travel from Last 3 Months Immunizations Immunization Administration [...] Questionnaire-9 Score 01/20/2025 Patient Health Questionnaire-9 Score 01/20/2025 Last PHQ-9: Questionnaire Data Not on [...] Pap Smear 09/12/2023 09/12/2020 COVID-19 Vaccine ( - season) 2025 05/23/2022, 11/03/2020, 10/05/2020 Influenza Vaccine [...] 04/26, 03/16/2008 Hepatitis A Vaccines Completed 06/24/2013, 03/26/20 13 Meningococcal Vaccine Completed 11/22/2013, 009 Meningococcal [...] Procedure Name Priority Date/Time Associated Diagnosis Comments SED RATE BY MODIFIED WESTERGREN Routine 05/15/2025 8:09 PM EDT HCG, TOTAL, QN Routine 05/15/2025 8:09 PM EDT C-REACTIVE PROTEIN Routine 05/15/2025 8: 09 PM EDT MAGNESIUM Routine 05/15/2025 8:09 PM EDT COMPREHENSIVE METABOLIC PANEL Routine 05/15/2025 8:09 PM EDT LACTIC ACID Routine 05/15/2025 8:09 PM EDT CBC WITH AUTO DIFFERENTIAL Routine 05/15/2025 8:09 PM EDT POCT INFLUENZA B (ID NOW RAPID MOLECULAR) Routine 04/05/2025 9:28 AM EDT Wheezing POCT INFLUENZA A (ID NOW RAPID MOLECULAR) Routine 04/05/2025 9:28 AM EDT Wheezing POCT RAPID COVID ANTIGEN Routine 04/05/2025 9:28 AM EDT Wheezing HM PAP/HPV Routine 09/12/2020 1:45 PM EST from Last 3 Months or Most Recently Relevant to Health Maintenance Results * (ABNORMAL) CBC auto differential (05/15/2025 8:09 PM EDT) White Blood Count 7.0 4.8 - 10.8 X10*3/uL [facility] Red Blood Count 4.61 4.20 - 5.50 X10*6/uL [facility] Hemoglobin 13.4 12.0 - 16.0 g/dl [facility] Hematocrit 40.3 37.0 - 47.0 % [facility] Mean Corpuscular Volume 87.4 80.0 - 98.0 fL [facility] Mean Corpuscular Hemoglobin 29.1 27.0 - 33.0 pg [facility] Mean Corpuscular HGB Conc 33.3 31.0 - 35.0 g/dl [facility] Red Cell Distribution Width 13.8 11.0 - 16.0 % [facility] Platelet Count 235 160 - 400 X10*3/uL [facility] Mean Platelet Volume 9.6 9.4 - 12.3 fL [facility] Neutrophils Percent Auto 62.1 45 - 73 % [facility] Imm Gran Pct Auto 0.1 0.0 - 0.4 % [facility] Lymphocytes Percent Auto 20.1 20 - 40 % [facility] Monocytes Percent Auto 11.3(H) 2 - 11 % [facility] Eosinophils Percent Auto 6.1(H) 0 - 4 % [facility] Basophils Percent Auto 0.3 0 - 2 % [facility] NRBC Pct Auto 0.0 0.0 - 0.2 /100WBC [facility] Neutrophils Absolute Auto 4.4 2.0 - 8.3 x10*3/uL [facility] Imm Gran Abs Auto 0.01 0.00 - 0.03 X10*3/uL [facility] Lymphocytes Absolute Auto 1.4 1.2 - 4.9 X10*3/uL [facility] Monocytes Absolute Auto 0.8 0.1 - 1.2 X10*3/uL [facility] Eosinophils Absolute Auto 0.4 0.0 - 0.4 X10*3/uL [facility] Basophils Absolute Auto 0.0 0.0 - 0.2 X10*3/uL [facility] NRBC Abs Auto 0.000 0.0 - 0.012 X10*3/uL [facility] 05/15/2025 8:09 PM EDT 05/15/2025 8:15 PM EDT [facility] - 05/15/2025 8:19 PM EDT No answer Generic External Data Provider LAB BLOOD ORDERAB LES Final Result Performing Organization Address [facility] Co de Phone Number [facility] [address] [place] [phone] * Sed Rate by Modified Westergren (05/15/2025 8:09 PM EDT) [facility] Erythrocyte Sedimentation Rate 16 0 - 20 MM/HR [facility] Comment:Patients with polycy themia and many hemoglobin abnormalitiesmay have depressed sed rates whereas patients with anemiamay have elevated sed rates. 05/15/2025 8:09 PM EDT 05/15/2025 8:15 PM EDT [facility] - 05/15/2025 9:04 PM EDT No answer Generic External Data Provider LAB BLOOD ORDERAB LES Final Result Performing Organization Address [facility] Co de Phone Number [facility] [address] [place] [phone] * (ABNORMAL) C-reactive Protein (05/15/2025 8:09 PM EDT) [facility] C Reactive Protein 1.75(H) < or = 0.50 mg/dL [facility] 05/15/2025 8:09 PM EDT 05/15/2025 8:15 PM EDT [facility] - 05/15/2025 8:54 PM EDT No answer Generic External Data Provider LAB BLOOD ORDERAB LES Final Result Performing Organization Address [facility] Co de Phone Number [facility] [address] [place] [phone] * hCG, Total, Quantitative (05/15/2025 8:09 PM EDT) [facility] HCG Quantitative <2 mIU/mL [facility] Comment:Weeks post LMP Appro ximate hCG(Last Menstrual Period) Range (mIU/ml)3 - 4 weeks 9 - 1304 - 5 weeks 75 - 2,6005 - 6 weeks 850 - 20,8006 - 7 weeks 4000 - 100,2007 - 12 weeks 11,500 - 289,10274 - 16 weeks 18,300 - 137,20214 - 29 weeks (2nd trimester) 1,400 - 53,83579 - 41 weeks (3rd trimester) 940 - 60,000The [place] B- hCG assay is used for the early detection ofpregnancy; it cannot be used to diagnose any conditionunrelated to . If a B-hCG level is not supportedby the clinical evidence, results should be confirmed by analternative method (qualitative urine hCG, for example). 05/15/2025 8:09 PM EDT 05/15/2025 8:15 PM EDT [facility] - 05/15/2025 8:54 PM EDT No answer Generic External Data Provider LAB BLOOD ORDERAB LES Final Result Performing Organization Address [facility]/ZIP Co de Phone Number [facility] [address] [place] [phone] * Magnesium (05/15/2025 8:09 PM EDT) [facility] Magnesium 2.2 1.6 - 2.6 mg/dL [facility] 05/15/2025 8:09 PM EDT 05/15/2025 8:15 PM EDT [facility] - 05/15/2025 8:54 PM EDT No answer Generic External Data Provider LAB BLOOD ORDERAB LES Final Result Performing Organization Address City/[facility]/ZIP Co de Phone Number [facility] [address] [place] [address] [phone] * Lactic Acid (05/15/2025 8:09 PM EDT) Lactic Acid 1.0 0.5 - 2.0 mmol/L [facility] 05/15/2025 8:09 PM EDT 05/15/2025 8:15 PM EDT Narrative [facility] - 05/15/2025 8:34 PM EDT No answer us Generic External Data Provider LAB BLOOD ORDERAB LES Final Result [facility] [address] [place] [address] [phone] * (ABNORMAL) Comprehensive Metabolic Panel (05/15/2025 8:09 PM EDT) Pathologist [facility] Sodium 137 135 - 145 mmol/L [facility] Potassium 3.9 3.3 - 5.1 mmol/L [facility] Chloride 103 96 - 108 mmol/L [facility] Carbon Dioxide 26 22 - 29 mmol/L [facility] Anion Gap 12 12 - 20 [facility] Urea Nitrogen (BUN) 12 9 - 16 mg/dL [facility] Creatinine, Serum 0.51 0.5 - 1.4 mg/dL [facility] Creatinine Clr Calc Pharmacy 121.0 [facility] Comment:Provided height and weight: 165.1 cm,46.266 kg.eGFR (calculated from the MDRD study equation) and eCrCl(calculated from the Cockcroft-Gault equation) are based ondifferent parameters and may not yield comparable results.If eCrCl result is absurd, please check patient'sheight/weight. Estimated Glomerular Filt Rate >60 [facility] Comment:Chronic Kidney Disea se: Estimated GFR < 60 mL/min/1.59v2Vxihqs Kidney Disease: Estimated GFR < 15 mL/min/1.73m2 Glucose 92 60 - 115 mg/dL [facility] Calcium 8.9 8.4 - 10.2 mg/dL [facility] Bilirubin, Total 0.2 0.0 - 1.0 mg/dL [facility] Aspartate Amino Transferase 62(H) 5 - 31 U/L [facility] Alanine Aminotransferase 67(H) 0 - 31 U/L [facility] Total Protein 7.6 6.5 - 8.0 g/dL [facility] Albumin Level 4.3 3.5 - 5.0 g/dL [facility] Alkaline Phosphatase 76 39 - 117 U/L [facility] 05/15/2025 8:09 PM EDT 05/15/2025 8:15 PM EDT Narrative [facility] - 05/15/2025 8:54 PM EDT No answer Generic External Data Provider LAB BLOOD ORDERAB LES Final Result Performing Organization Address [facility]/ZIP Co de Phone Number [facility] [address] [place] [address] [phone] * Influenza B (ID NOW Rapid Molecular) (04/05/2025 9:28 AM EDT) Influenza B Negative Negative, Indeterminate [facility] Swab 04/05/2025 9:28 AM EDT Jaya Gutiérrez MD POINT OF CARE TEST ENTER/EDIT OR DERABLES Final Result Performing Organization Address [facility] Co de Phone Number [facility] [address] [place] [phone] * Influenza A (ID NOW Rapid Molecular) (04/05/2025 9:28 AM EDT) Influenza A Negative Negative, Indeterminate [facility] Swab 04/05/2025 9:28 AM EDT Jaya Gutiérrez MD POINT OF CARE TEST ENTER/EDIT OR DERABLES Final Result Performing Organization Address [facility] Co de Phone Number [facility] [address] [place] [address] [phone] * POCT Rapid COVID Ag (04/05/2025 9:28 AM EDT) Rapid COVID Ag Negative [facility] Swab 04/05/2025 9:28 AM EDT Jaya Gutiérrez MD POINT OF CARE TEST ENTER/EDIT OR DERABLES Final Result [facility] [address] [place] [address] [phone] * HM PAP/HPV (09/12/2020 1:45 PM EST) [place] Provider HEALTH MAINTENANCE Final Result from Last 3 Months or Most Recently Relevant to Health Maintenance Insurance [facility] STANDARD Care Teams Vehicle Refinisher Relationship Specialty Start Date End Date Venus Helms MD [address] [place] [address] PCP - General Family Medicine 07/05/24 Loni Salgado BellmanLitharge Supervisor 08/09/24
--- OUTSIDE RECORDS SUMMARY | 2025-05-15 23:04 | XMS_ITS | Encounter Summary ---
Author Organization [email or web address] Address [address] [place] [address] [place] [address] Care Team Providers Care Tax Processor Name Role Phone Venus Helms MD Primary Care Provider [phone] Reason for Visit * Reason Onset Date Comments Med Refill 03/29/2024 Encounter Details Date Type Department Care Team ([facility] st Contact Info) Description 03/29/2024 Telephone [facility] [address] [place] [address] Stephanie Clark MD [address] [place] [address] Med Refill Social History Tobacco Use Types [...] 2 MG tablet To be sent to: [facility] - [place], [place] - [address] [place] [address] documented in this encounter Plan of Treatment Not on file documented as of this encounter Visit Diagnoses Not on filedocumented in this encounter Care Teams Tax Processor Relationship Specialty Start Date End Date Venus Helms MD [address] [place] [address] PCP - General Family Medicine 07/05/24 Loni Salgado Senior Physical TherapistEmployee Benefits Administrator 08/09/24 documented as of this encounter
--- OUTSIDE RECORDS SUMMARY | 2025-05-15 23:04 | XMS_ITS | Clinical Summary ---
Author Organization Located Within [facility] Address [address] [place] [address] Phone Care Team Providers Care Cushion Worker Name Role Phone Danica Redd MD Unavailable [phone] Pcp, Unknown Primary Care Provider Unavailabl e [...] think we need to do any further DEPARTMENTAL SHIPPING CLERK imaging at this time. Her Lexapro was [...] Advance Directives For more information, please contact: [phone] (9AM - 5PM [facility], Friday-Friday) * Full Code (Confirmed) (Latest Code Status on File) Date Activated Date Inactivated Comments 07/19/2017 3:06 AM 07/19/2017 10:13 PM Question Answer Comments Code Discussion Comments: pt Care Teams Cushion Worker Relationship Specialty Start Date End Date Pcp, Unknown PCP - General 05/19/23 Danica Redd MD [email or web address] Pediatric Gastroenterology 07/19/17 Additional Source Comments The information contained in this document represents components of the legal health record. It is not the complete legal health record.Located Within [facility]
--- OUTSIDE RECORDS SUMMARY | 2025-05-15 23:04 | XMS_ITS | Encounter Summary ---
Author Organization [employer] Address [address] [place] [address] Care Team Providers Care Collar Starcher Name Role Phone Venus Helms MD Primary Care Provider [phone] Reason for Visit * Reason Comments Med Refill Encounter Details Date Type Department Care Team ([facility] Contact Info) Description 07/29/2024 Refill [facility] [address] [place] [address] Venus Helms MD [address] [place] [address] Anxiety Social History Tobacco Use Types Packs/Day [...] documented as of this encounter Care Teams Collar Starcher Relationship Specialty Start Date End Date Venus Helms MD [address] [place] [phone] PCP - General Family Medicine 07/05/24 Loni Salgado Public Service RepresentativePlater Apprentice 08/09/24 documented as of this encounter
--- OUTSIDE RECORDS SUMMARY | 2025-05-15 23:04 | XMS_ITS | Encounter Summary ---
Author Organization [facility] Address [address] [place] [address] Phone Care Team Providers Care Aerospace Medicine Physician Name Role Phone Erma Ng MD Primary Care Provider [phone] Encounter Details Date Type Department Care Team (Late st Contact Info) Description 11/29/2010 Conversion Encounter [facility] [address] [place] [address] Social History Tobacco Use Types Packs/Day Years [...] on filedocumented in this encounter Care Teams Aerospace Medicine Physician Relationship Specialty Start Date End Date Erma Ng MD PCP - General 12/31/17 documented as of this encounter
--- OUTSIDE RECORDS SUMMARY | 2025-05-15 23:04 | XMS_ITS | Encounter Summary ---
Author Organization [employer] Address [address] 7[address] [place] [address] Care Team Providers Care Hydraulic Miner Name Role Phone Venus Helms MD Primary Care Provider [phone] Encounter Details Date Type Department Care Team (Late st Contact Info) Description 05/15/2025 Orders Only GENERIC EXTERNAL DATA DEPARTMENT Provider, Generic External Data Social History Tobacco Use Types Packs/Day Years Used Date Smoking Tobacco: Every Day Cigarettes Passive Smoke Exposure: Current Smokeless Tobacco: Never Alcohol Use Standard Drinks/Week [...] the past 12 months, has t he Fluid-1, App in the Air, oil or water [employer] threatened to shut off services in your [...] Procedure Name Priority Date/Time Associated Diagnosis Comments CBC WITH AUTO DIFFERENTIAL Routine 05/15/2025 8:09 PM EDT SED RATE BY MODIFIED WESTERGREN Routine 05/15/2025 8:09 PM EDT C-REACTIVE PROTEIN Routine 05/15/2025 8: 09 PM EDT HCG, TOTAL, QN Routine 05/15/2025 8:09 PM EDT MAGNESIUM Routine 05/15/2025 8:09 PM EDT LACTIC ACID Routine 05/15/2025 8:09 PM EDT COMPREHENSIVE METABOLIC PANEL Routine 05/15/2025 8:09 PM EDT documented in this encounter Results * Sed Rate by Modified Westergren (05/15/2025 8:09 PM EDT) Erythrocyte Sedimentation Rate 16 0 - 20 MM/HR [facility] Comment:Patients with polycy themia and many hemoglobin abnormalitiesmay have depressed sed rates whereas patients with anemiamay have elevated sed rates. 05/15/2025 8:09 PM EDT 05/15/2025 8:15 PM EDT [facility] - 05/15/2025 9:04 PM EDT No answer Generic External Data Provider LAB BLOOD ORDERAB LES Final Result Performing Organization Address [facility] Co de Phone Number [facility] [address] [place] [phone] * hCG, Total, Quantitative (05/15/2025 8:09 PM EDT) Pathologist [facility] HCG Quantitative <2 mIU/mL [facility] Comment:Weeks post LMP Appro ximate hCG(Last Menstrual Period) Range (mIU/ml)3 - 4 weeks 9 - 1304 - 5 weeks 75 - 2,6005 - 6 weeks 850 - 20,8006 - 7 weeks 4000 - 100,2007 - 12 weeks 11,500 - 289,10359 - 16 weeks 18,300 - 137,74363 - 29 weeks (2nd trimester) 1,400 - 53,35137 - 41 weeks (3rd trimester) 940 - 60,000The [place] B- hCG assay is used for the early detection ofpregnancy; it cannot be used to diagnose any conditionunrelated to . If a B-hCG level is not supportedby the clinical evidence, results should be confirmed by analternative method (qualitative urine hCG, for example). 05/15/2025 8:09 PM EDT 05/15/2025 8:15 PM EDT [facility] - 05/15/2025 8:54 PM EDT No answer us Generic External Data Provider LAB BLOOD ORDERAB LES Final Result Performing Organization Address City/[facility]/ZIP Co de Phone Number [facility] [address] [place] [phone] * (ABNORMAL) C-reactive Protein (05/15/2025 8:09 PM EDT) [facility] C Reactive Protein 1.75(H) < or = 0.50 mg/dL [facility] 05/15/2025 8:09 PM EDT 05/15/2025 8:15 PM EDT [facility] - 05/15/2025 8:54 PM EDT No answer Generic External Data Provider LAB BLOOD ORDERAB LES Final Result Performing Organization Address [facility]/ZIP Co de Phone Number [facility] [address] [place] [phone] * Magnesium (05/15/2025 8:09 PM EDT) [facility] Magnesium 2.2 1.6 - 2.6 mg/dL [facility] 05/15/2025 8:09 PM EDT 05/15/2025 8:15 PM EDT [facility] - 05/15/2025 8:54 PM EDT No answer us Generic External Data Provider LAB BLOOD ORDERAB LES Final Result Performing Organization Address City/[facility]/ZIP Co de Phone Number [facility] [address] [place] [address] [phone] * (ABNORMAL) Comprehensive Metabolic Panel (05/15/2025 8:09 PM EDT) [facility] Sodium 137 135 - 145 mmol/L [facility] Potassium 3.9 3.3 - 5.1 mmol/L [facility] Chloride 103 96 - 108 mmol/L [facility] Carbon Dioxide 26 22 - 29 mmol/L [facility] Anion Gap 12 12 - 20 [facility] Urea Nitrogen (BUN) 12 9 - 16 mg/dL [facility] Creatinine, Serum 0.51 0.5 - 1.4 mg/dL [facility] Creatinine Clr Calc Pharmacy 121.0 [facility] Comment:Provided height and weight: 165.1 cm,46.266 kg.eGFR (calculated from the MDRD study equation) and eCrCl(calculated from the Cockcroft-Gault equation) are based ondifferent parameters and may not yield comparable results.If eCrCl result is absurd, please check patient'sheight/weight. Estimated Glomerular Filt Rate >60 [facility] Comment:Chronic Kidney Disea se: Estimated GFR < 60 mL/min/1.49d0Mwtfhy Kidney Disease: Estimated GFR < 15 mL/min/1.73m2 Glucose 92 60 - 115 mg/dL [facility] Calcium 8.9 8.4 - 10.2 mg/dL [facility] Bilirubin, Total 0.2 0.0 - 1.0 mg/dL [facility] Aspartate Amino Transferase 62(H) 5 - 31 U/L [facility] Alanine Aminotransferase 67(H) 0 - 31 U/L [facility] Total Protein 7.6 6.5 - 8.0 g/dL [facility] Albumin Level 4.3 3.5 - 5.0 g/dL [facility] Alkaline Phosphatase 76 39 - 117 U/L [facility] 05/15/2025 8:09 PM EDT 05/15/2025 8:15 PM EDT Narrative [facility] - 05/15/2025 8:54 PM EDT No answer us Generic External Data Provider LAB BLOOD ORDERAB LES Final Result [facility] [address] [place], [place] [phone] * Lactic Acid (05/15/2025 8:09 PM EDT) Lactic Acid 1.0 0.5 - 2.0 mmol/L [facility] 05/15/2025 8:09 PM EDT 05/15/2025 8:15 PM EDT Narrative [facility] - 05/15/2025 8:34 PM EDT No answer us Generic External Data Provider LAB BLOOD ORDERAB LES Final Result [facility] [address] [place] [phone] * (ABNORMAL) CBC auto differential (05/15/2025 8:09 PM EDT) White Blood Count 7.0 4.8 - 10.8 X10*3/uL [facility] Red Blood Count 4.61 4.20 - 5.50 X10*6/uL [facility] Hemoglobin 13.4 12.0 - 16.0 g/dl [facility] Hematocrit 40.3 37.0 - 47.0 % [facility] Mean Corpuscular Volume 87.4 80.0 - 98.0 fL [facility] Mean Corpuscular Hemoglobin 29.1 27.0 - 33.0 pg [facility] Mean Corpuscular HGB Conc 33.3 31.0 - 35.0 g/dl [facility] Red Cell Distribution Width 13.8 11.0 - 16.0 % [facility] Platelet Count 235 160 - 400 X10*3/uL [facility] Mean Platelet Volume 9.6 9.4 - 12.3 fL [facility] Neutrophils Percent Auto 62.1 45 - 73 % [facility] Imm Gran Pct Auto 0.1 0.0 - 0.4 % [facility] Lymphocytes Percent Auto 20.1 20 - 40 % [facility] Monocytes Percent Auto 11.3(H) 2 - 11 % [facility] Eosinophils Percent Auto 6.1(H) 0 - 4 % [facility] Basophils Percent Auto 0.3 0 - 2 % [facility] NRBC Pct Auto 0.0 0.0 - 0.2 /100WBC [facility] Neutrophils Absolute Auto 4.4 2.0 - 8.3 x10*3/uL [facility] Imm Gran Abs Auto 0.01 0.00 - 0.03 X10*3/uL [facility] Lymphocytes Absolute Auto 1.4 1.2 - 4.9 X10*3/uL [facility] Monocytes Absolute Auto 0.8 0.1 - 1.2 X10*3/uL [facility] Eosinophils Absolute Auto 0.4 0.0 - 0.4 X10*3/uL [facility] Basophils Absolute Auto 0.0 0.0 - 0.2 X10*3/uL [facility] NRBC Abs Auto 0.000 0.0 - 0.012 X10*3/uL [facility] 05/15/2025 8:09 PM EDT 05/15/2025 8:15 PM EDT Narrative [facility] - 05/15/2025 8:19 PM EDT No answer us Generic External Data Provider LAB BLOOD ORDERAB LES Final Result Performing Organization Address City/State/[facility] Co de Phone Number [facility] [address] [place] [phone] documented in this encounter Visit Diagnoses Not on filedocumented in this encounter Additional Health Concerns Assessment Noted Time PHQ-9 Depression Total Score: 20 025 6:59 AM EDT documented as of this encounter Care Teams Hydraulic Miner Relationship Specialty Start Date End Date Venus Helms MD [address] [place] [phone] PCP - General Family Medicine 07/05/24 Loni Salgado Furnace RelinerCompliance Reviewer 08/09/24 documented as of this encounter
--- OUTSIDE RECORDS SUMMARY | 2025-05-15 23:04 | XMS_ITS | Encounter Summary ---
Author Organization [employer] Address [address] [place] [address] 7 [place] [address] Care Team Providers Care Pipe Recovery Specialist Name Role Phone Venus Helms MD Primary Care Provider [phone] Reason for Visit * Reason Comments Med Refill Encounter Details Date Type Department Care Team ([facility] st Contact Info) Description 04/23/2024 Refill [facility] PEDS [address] [place], [place] [phone] Stephanie Clark MD [address] [place] [address] Anxiety Social History Tobacco Use Types Packs/Day [...] unspecified documented in this encounter Care Teams Pipe Recovery Specialist Relationship Specialty Start Date End Date Venus Helms MD [address] [place], [place] [phone] PCP - General Family Medicine 07/05/24 Loni Salgado Nuclear Weapons CustodianFirer Portable Boiler 08/09/24 documented as of this encounter
--- OUTSIDE RECORDS SUMMARY | 2025-05-15 23:04 | XMS_ITS | Clinical Summary ---
Author Organization [facility] Address [address] [place] [address] Phone Care Team Providers Care Art Psychotherapist Or Therapist Name Role Phone Erma Ng MD Primary Care Provider [phone] Allergies Active Allergy Reactions Criticality Noted Date [...] patient's age to complete this topic Insurance [facility] NON PCC Care Teams Art Psychotherapist Or Therapist Relationship Specialty Start Date End Date Erma Ng MD PCP - General 12/31/17
--- OUTSIDE RECORDS SUMMARY | 2025-05-15 23:04 | XMS_ITS | Encounter Summary ---
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
--- OUTSIDE RECORDS SUMMARY | 2025-05-15 23:05 | XMS_ITS | Clinical Summary ---
Author Organization [facility] ity Address [address] [place] [address] Care Team Providers Care Data Analytics Specialist Name Role Phone Unavailable Primary Care Provider [...] 07/27/2022 Social Influencers of Health Screening 07/27/2022 Depression Screening 08/25/2024 COVID-19 Vaccine ( - 2023-2 5 season) 2025 Influenza Vaccine (#1) 2025 HIB Vaccines Aged [...]
--- OUTSIDE RECORDS SUMMARY | 2025-05-15 23:05 | XMS_ITS | Encounter Summary ---
Author Organization [employer] Address [address] [place] [address] Care Team Providers Care Science Intern Name Role Phone Venus Helms MD Primary Care Provider [phone] Encounter Details Date Type Department Care Team (Late st Contact Info) Description 10/07/2024 Orders Only [facility] [address] [place] [address] ProviderKasey MD Social History Tobacco Use Types [...] documented as of this encounter Care Teams Science Intern Relationship Specialty Start Date End Date Venus Helms MD [address] [place] [address] PCP - General Family Medicine 07/05/24 Loni Salgado Human Factors SpecialistTrimmer Operator 08/09/24 documented as of this encounter
--- OUTSIDE RECORDS SUMMARY | 2025-05-15 23:05 | XMS_ITS | Encounter Summary ---
Author Organization [employer] Address [address] [facility] [place] [address] Care Team Providers Care Puffer Tender Name Role Phone Venus Helms MD Primary Care Provider [phone] Reason for Visit * Reason Onset Date Comments Med Refill 09/08/2024 Encounter Details Date Type Department Care Team ([facility] st Contact Info) Description 09/08/2024 Refill [facility] [address] [place] [address] Stephanie Lynn MD [address] [place] [address] Anxiety Social History Tobacco Use Types Packs/Day [...] documented as of this encounter Care Teams Puffer Tender Relationship Specialty Start Date End Date Venus Helms MD [address] [place] [address] PCP - General Family Medicine 07/05/24 Loni Salgado C D StripperConveyor Installer 08/09/24 documented as of this encounter
--- OUTSIDE RECORDS SUMMARY | 2025-05-15 23:05 | XMS_ITS | Encounter Summary ---
Author Organization [employer] Address [address] 7[address] [place] [address] Care Team Providers Care Airborne Mission Systems Name Role Phone Venus Helms MD Primary Care Provider Reason for Visit * Reason Onset Date Comments Med Refill 09/08/2024 Encounter Details Date Type Department Care Team (Late st Contact Info) Description 09/08/2024 Refill [facility] [address] [place] [address] Venus Helms MD [address] [place] [address] Persistent vomiting; Anxiety Social History Tobacco Use [...] documented as of this encounter Care Teams Airborne [employer] Systems Relationship Specialty Start Date End Date Venus Helms MD [address] [place] [address] PCP - General Family Medicine 07/05/24 Loni Salgado Finish Machine TenderDistance Learning Program Coordinator 08/09/24 documented as of this encounter
--- OUTSIDE RECORDS SUMMARY | 2025-05-15 23:05 | XMS_ITS | Encounter Summary ---
Author Organization [employer] Address [address] [facility] [address] [facility] [address] 7[address] [place] [address] Care Team Providers Care Spray Pilot Name Role Phone Venus Helms MD Primary Care Provider [phone] Reason for Visit * Reason Onset Date Comments Med Refill 09/08/2024 Encounter Details Date Type Department Care Team (Late st Contact Info) Description 09/08/2024 Refill [facility] MEDICINE [address] [place] [address] Venus Helms MD [address] [place] [address] Anxiety; Persistent vomiting Social History Tobacco Use [...] documented as of this encounter Care Teams Spray Pilot Relationship Specialty Start Date End Date Venus Helms MD [address] [place] [address] PCP - General Family Medicine 07/05/24 Loni Salgado Sustainability AnalystNarrative Writer 08/09/24 documented as of this encounter
--- OUTSIDE RECORDS SUMMARY | 2025-05-15 23:05 | XMS_ITS | Encounter Summary ---
Author Organization [employer] Address [address] 7[address] [place] [address] Care Team Providers Care Rf Engineer Name Role Phone Venus Helms MD Primary Care Provider [phone] Encounter Details Date Type Department Care Team ([facility] st Contact Info) Description 01/11/2025 Orders Only [facility] [address] [place] [address] Venus Helms MD [address] [place] [address] Anxiety Social History Tobacco Use Types Packs/Day [...] documented as of this encounter Care Teams Rf Engineer Relationship Specialty Start Date End Date Venus Helms MD [address] [place] [address] PCP - General Family Medicine 07/05/24 Loni Salgado Plant Operations WorkerRoofer 08/09/24 documented as of this encounter
--- OUTSIDE RECORDS SUMMARY | 2025-05-15 23:05 | XMS_ITS | Encounter Summary ---
Author Organization [employer] Address [address] [place] [address] Care Team Providers Care Reactor Fueling Supervisor Name Role Phone Venus Helms MD Primary Care Provider [phone] Encounter Details Date Type Department Care Team ([facility] st Contact Info) Description 09/08/2024 Orders Only [facility] [address] [place] [address] Venus Helms MD [address] [place] [address] Anxiety; Persistent vomiting Social History Tobacco Use [...] documented as of this encounter Care Teams Reactor Fueling Supervisor Relationship Specialty Start Date End Date Venus Helms MD [address] [place] [address] PCP - General Family Medicine 07/05/24 Loni Salgado Dye Penetrant Testing TechnicianMetal Washing Machine Operator 08/09/24 documented as of this encounter
--- OUTSIDE RECORDS SUMMARY | 2025-05-15 23:05 | XMS_ITS | Encounter Summary ---
Author Organization [employer] Address [address] [place] [address] Care Team Providers Care Block Bolter Mule Operator Name Role Phone Venus Helms MD Primary Care Provider [phone] Reason for Visit * Reason Comments Med Refill Encounter Details Date Type Department Care Team ([facility] st Contact Info) Description 02/04/2025 Refill [facility] [address] [place] [address] Venus Helms MD [address] [place] [address] Anxiety Social History Tobacco Use Types Packs/Day [...] documented as of this encounter Care Teams Block Bolter Mule Operator Relationship Specialty Start Date End Date Venus Helms MD [address] [place] [address] PCP - General Family Medicine 07/05/24 Loni Salgado Log BranderHim Specialist 08/09/24 documented as of this encounter
== END 2025-05-15 23:01 | disposition left against medical advice (07) ==
PROVIDERS: Registered Nurse Emergency; Emergency Provider Emergency Medicine; PCP General Practice
DX: R53.1 Weakness (principal); R10.2 Pelvic and perineal pain; Z79.899 Other long term (current) drug therapy
CPT/HCPCS: 36415; 80053; 83605; 83735; 84702; 85025; 85652; 86140; 99281; 99283

== ENCOUNTER 2025-06-06 00:24 | Outpatient (REF) | payer MEDICAID, SELFPAY ==
[2025-06-06 00:32] VITALS: BP 115/72; PULSE 94; RESP 20; TEMP 36.6; O2SAT 95; BMI 16.5
--- OUTSIDE RECORDS SUMMARY | 2025-06-06 01:29 | XMS_ITS | Clinical Summary ---
Author Organization [facility] Address [address] [place] [address] Phone Care Team Providers Care Plastic Sewer Name Role Phone Erma Ng MD Primary Care Provider [phone] Allergies Active Allergy Reactions Criticality Noted Date [...] patient's age to complete this topic Insurance [facility] NON PCC Care Teams Plastic Sewer Relationship Specialty Start Date End Date Erma Ng MD PCP - General 12/31/17
--- OUTSIDE RECORDS SUMMARY | 2025-06-06 01:29 | XMS_ITS | Encounter Summary ---
Author Organization [employer] Address [address] [place] [address] 7 [place] [address] Care Team Providers Care Steel Burner Name Role Phone Venus Helms MD Primary Care Provider [phone] Reason for Visit * Reason Comments Med Refill Encounter Details Date Type Department Care Team ([facility] st Contact Info) Description 04/23/2024 Refill [facility] CH[facility] MED & PEDS [address] [place], [place] [phone] Stephanie Clark MD [address] [place] [address] Anxiety Social History Tobacco Use Types Packs/Day [...] unspecified documented in this encounter Care Teams Steel Burner Relationship Specialty Start Date End Date Venus Helms MD [address] [place], [place] [phone] PCP - General Family Medicine 07/05/24 Loni Salgado Adventure Challenge InstructorHeat Treat Supervisor 08/09/24 documented as of this encounter
--- OUTSIDE RECORDS SUMMARY | 2025-06-06 01:29 | XMS_ITS | Encounter Summary ---
Author Organization [employer] Address [address] [place] [address] [place] [address] Care Team Providers Care Sharepoint Administrator Name Role Phone Venus Helms MD Primary Care Provider [phone] Reason for Visit * Reason Onset Date Comments Med Refill 03/29/2024 Encounter Details Date Type Department Care Team ([facility] st Contact Info) Description 03/29/2024 Telephone [facility] MEDICINE [address] [place] [address] Stephanie Clark MD [address] [place] [address] Med Refill Social History Tobacco Use Types [...] 2 MG tablet To be sent to: [facility] [place], [place] - [address] [place] [address] documented in this encounter Plan of Treatment Not on file documented as of this encounter Visit Diagnoses Not on filedocumented in this encounter Care Teams Sharepoint Administrator Relationship Specialty Start Date End Date Venus Helms MD [address] [place] [address] PCP - General Family Medicine 07/05/24 Loni Salgado Rink RatProperty And Casualty Insurance Agent 08/09/24 documented as of this encounter
--- OUTSIDE RECORDS SUMMARY | 2025-06-06 01:30 | XMS_ITS | Encounter Summary ---
Author Organization [employer] Address [address] [facility] [address] [place] [address] Care Team Providers Care Cardiology Rn Name Role Phone Venus Helms MD Primary Care Provider [phone] Encounter Details Date Type Department Care Team (Late st Contact Info) Description 10/07/2024 Orders Only [facility] MED[facility] [address] [place] [address] ProviderKasey MD Social History Tobacco Use Types [...] documented as of this encounter Care Teams Cardiology Rn Relationship Specialty Start Date End Date Venus Helms MD [address] [place] [address] PCP - General Family Medicine 07/05/24 Loni Salgado Clinical Lab TechnologistBobbin Washer 08/09/24 documented as of this encounter
--- OUTSIDE RECORDS SUMMARY | 2025-06-06 01:30 | XMS_ITS | Encounter Summary ---
Author Organization [employer] Address [address] [facility] [address] [place] [address] Care Team Providers Care Hurl Shaker Name Role Phone Venus Helms MD Primary Care Provider [phone] Reason for Visit * Reason Onset Date Comments Med Refill 09/08/2024 Encounter Details Date Type Department Care Team ([facility] st Contact Info) Description 09/08/2024 Refill [facility] [address] [place] [address] Stephanie Lynn MD [address] [place] [address] Anxiety Social History Tobacco Use Types Packs/Day [...] documented as of this encounter Care Teams Hurl Shaker Relationship Specialty Start Date End Date Venus Helms MD [address] [place] [address] PCP - General Family Medicine 07/05/24 Loni Salgado Ed TransporterShackler 08/09/24 documented as of this encounter
--- OUTSIDE RECORDS SUMMARY | 2025-06-06 01:30 | XMS_ITS | Encounter Summary ---
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
--- OUTSIDE RECORDS SUMMARY | 2025-06-06 01:30 | XMS_ITS | Encounter Summary ---
Author Organization [employer] Address [address] [facility] [address] [place] [address] Care Team Providers Care Policy And Planning Manager Name Role Phone Venus Helms MD Primary Care Provider [phone] Reason for Visit * Reason Onset Date Comments Med Refill 09/08/2024 Encounter Details Date Type Department Care Team (Late st Contact Info) Description 09/08/2024 Refill [facility] MEDICINE [address] [place] [address] Venus Helms MD [address] [place] [address] Persistent vomiting; Anxiety Social History Tobacco Use [...] documented as of this encounter Care Teams Policy And Planning Manager Relationship Specialty Start Date End Date Venus Helms MD [address] [place] [address] PCP - General Family Medicine 07/05/24 Loni Salgado Account Development AssociateShow Operations Supervisor 08/09/24 documented as of this encounter
--- OUTSIDE RECORDS SUMMARY | 2025-06-06 01:30 | XMS_ITS | Encounter Summary ---
Author Organization [employer] Address [address] 7t [place] [address] Care Team Providers Care Qc Chemist Name Role Phone Venus Helms MD Primary Care Provider [phone] Encounter Details Date Type Department Care Team ([facility] st Contact Info) Description 06/17/2024 Orders Only [facility] [address] [place] [address] Stephanie Clark MD [address] [place] [address] Anxiety Social History Tobacco Use Types Packs/Day [...] unspecified documented in this encounter Care Teams Qc Chemist Relationship Specialty Start Date End Date Venus Helms MD [address] [place] [address] PCP - General Family Medicine 07/05/24 Loni Salgado Community Planning Technician911 Dispatcher 08/09/24 documented as of this encounter
--- OUTSIDE RECORDS SUMMARY | 2025-06-06 01:30 | XMS_ITS | Encounter Summary ---
Author Organization [employer] Address [address] 7[address] [place] [address] Care Team Providers Care Tanyard Worker Name Role Phone Venus Helms MD Primary Care Provider Reason for Visit * Reason Onset Date Comments Med Refill 09/08/2024 Encounter Details Date Type Department Care Team (Late st Contact Info) Description 09/08/2024 Refill [facility] [address] [place] [address] Venus Helms MD [address] [place] [address] Anxiety; Persistent vomiting Social History Tobacco Use [...] documented as of this encounter Care Teams Tanyard Worker Relationship Specialty Start Date End Date Venus Helms MD [address] [place] [address] PCP - General Family Medicine 07/05/24 oLni Salgado Ordinary SeamanSubstation Operator Apprentice 08/09/24 documented as of this encounter
--- OUTSIDE RECORDS SUMMARY | 2025-06-06 01:30 | XMS_ITS | Clinical Summary ---
Author Organization [facility] Address [address] [place] [address] Phone Care Team Providers Care Button Facing Machine Operator Name Role Phone Danica Redd MD Unavailable [phone] Pcp, Unknown Primary Care Provider Unavailabl e [...] think we need to do any further SEWER CONTRACTOR imaging at this time. Her Lexapro was [...] Advance Directives For more information, please contact: [phone] (9AM - 5PM [place], Friday-Friday) * Full Code (Confirmed) (Latest Code Status on File) Date Activated Date Inactivated Comments 07/19/2017 3:06 AM 07/19/2017 10:13 PM Question Answer Comments Code Discussion Comments: pt Care Teams Button Facing Machine Operator Relationship Specialty Start Date End Date Pcp, Unknown PCP - General 05/19/23 Danica Redd MD [email or web address] Pediatric Gastroenterology 07/19/17 Additional Source Comments The information contained in this document represents components of the legal health record. It is not the complete legal health record.[facility]
--- OUTSIDE RECORDS SUMMARY | 2025-06-06 01:30 | XMS_ITS | Encounter Summary ---
Author Organization [employer] Address [address] 7[address] [place] [address] Care Team Providers Care Medical Device Name Role Phone Venus Helms MD Primary Care Provider [phone] Reason for Visit * Reason Comments Med Refill Encounter Details Date Type Department Care Team ([facility] st Contact Info) Description 06/01/2025 Refill [facility] [address] [place] [address] Jaya Gutiérrez MD [address] [place] [address] Social History Tobacco Use Types Packs/Day Years [...] documented as of this encounter Care Teams Medical Device Relationship Specialty Start Date End Date Venus Helms MD [address] [place] [address] PCP - General Family Medicine 07/05/24 Loni Salgado Electronics Parts Sales RepresentativeBit And Shank Department Supervisor 08/09/24 documented as of this encounter
--- OUTSIDE RECORDS SUMMARY | 2025-06-06 01:30 | XMS_ITS | Clinical Summary ---
Author Organization [employer] Address [address] 7t [place] [address] Care Team Providers Care Wallpaper Consultant Name Role Phone Venus Helms MD Primary Care Provider [phone] Allergies Active Allergy Reactions Criticality Noted Date [...] 01/20/20 25 Active haloperidol (Haldol) 0.5 MG tabletIndicatio ns:Anxiety Take 1 tablet (0.5 mg) by mouth every 8 (eight) hours if needed for agitation. 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 180 mL 02/05/20 25 Active promethazine (Phenergan) 12.5 MG tabletIndicatio ns:Persistent [...] the same time. 42 patch 04/05/20 25 Active nicotine (Nicoderm CQ) 7 MG/24HR patch Place 1 patch on the skin 1 (one) time each day at the same time. 14 patch 04/05/20 25 Active fluticasone-catherine meterol (Advair) 230-21 MCG/ACT inhaler Inhale 2 puffs in the morning and at bedtime. Rinse mouth with water after use to reduce aftertaste and incidence of candidiasis. Do not swallow. 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 18 g 3 04/05/20 Active Misc. Devices (Pulse Oximeter For Finger) misc 1 each 2 times daily. 1 each 04/05/20 Active Nebulizer misc 1 kit Every 4-6 hours as needed (for shortness of breath and wheezing). Active albuterol (2.5 MG/3ML) 0.083% nebulizer solution INHALE 1 AMPULE USING A NEBULIZER EVERY 4 HOURS NEEDED FOR WHEEZING OR SHORTNESS OF BREATH 90 mL 3 06/03/20 Active albuterol (2.5 MG/3ML) 0.083% nebulizer solution Take 3 mL (2.5 mg) by nebulization every 4 (four) hours if needed for wheezing. 75 mL 3 04/05/20 25 2024 Discontinued Hospital, Clinic, or Other Facility Administered Medication Ordered Dose Route Frequency Start Date End Date Status naloxone (Narcan) nasal spray 4 mgIndications:Opioid use disorder 4 mg NA Once 01/20/2025 Active ipratropium-albuterol (Duo-Neb) 0.5-2.5 mg/3 mL nebulizer solution 3 mgIndications:Wheezing 3 mg NEBULIZATION Once 04/05/2025 Active Active Problems Problem Noted Date Diagnosed Date Seizures (CMS/HCC) 04/12/2025 Assessment & Plan (04/12/2025 6:17 PM [...] Dx: Anxiety Rx: Klonazepam 2mg TID Last INFORMATION ASSURANCE ENGINEER agreement: 01/19/25 Tier I (visit every month) [...] & Plan (01/20/2025 7:38 AM EDT): Discussed INFORMATION ASSURANCE ENGINEER agreement, signed paperwork, how to safely use and store her medications. Narcan use, prescribed. Reviewed the high risk of overdose with opioids, kalyan Fentanyl and benzodiazepines. Reviewed that safely reducing her benzodiazepine dose slowly will be the goal. She met Starla Banda today and set up 02/28 at 1pm as initial INFORMATION ASSURANCE ENGINEER appointment. Consider referral to psychiatry. Pt requests [...] Will prescribe Boost Fentanyl use disorder, severe (CMS/HCC) 07/16/20 Assessment & Plan (07/16/2024 6:02 AM EST): [...] frame to ensure compliance and signing of INFORMATION ASSURANCE ENGINEER agreement Ultimately, she will be transitioned to psychiatric provider, and she is searching for OP therapy not associated with her [facility] Assessment & Plan (07/16/2024 6:06 AM EST): Patient currently taking Klonopin 2mg TID Refill for one month, and see in 4-6 weeks to obtain further psych history, determine best place to be seen, enroll in INFORMATION ASSURANCE ENGINEER if staying with me Assessment & Plan (06/29/2024 11:09 AM EST): [...] Date Resolved Date Encounter for medical examin raúlcount includes the [facility] to establish care 06/29/2024 01/20/2025 Assessment & [...] Encounters Date Type Department Care Team Description 06/01/2025 Refill [facility] [address] [address] Jaya Gutiérrez MD 05/15/2025 Orders Only GENERIC EXTERNAL DATA DEPARTMENT Provider, Generic External Data 04/12/2025 5:00 PM EDT Office Visit [facility] [address] [address] Stephanie Lynn MD Seizures ([facility]/HCC) (Primary Dx) 04/12/2025 Travel 04/11/2025 Telephone [facility] [address] [place] [address] Venus Helms MD 04/05/2025 9:00 AM EDT Office Visit [facility] [address] [place] [address] Jaya Gutiérrez MD Severe persistent asthma with [...] Blood Count 7.0 4.8 - 10.8 X10*3/uL [facility] Red Blood Count 4.61 4.20 - 5.50 X10*6/uL [facility] Hemoglobin 13.4 12.0 - 16.0 g/dl [facility] Hematocrit 40.3 37.0 - 47.0 % [facility] Mean Corpuscular Volume 87.4 80.0 - 98.0 fL [facility] Mean Corpuscular Hemoglobin 29.1 27.0 - 33.0 pg [facility] Mean Corpuscular HGB Conc 33.3 31.0 - 35.0 g/dl [facility] Red Cell Distribution Width 13.8 11.0 - 16.0 % [facility] Platelet Count 235 160 - 400 X10*3/uL [facility] Mean Platelet Volume 9.6 9.4 - 12.3 fL [facility] Neutrophils Percent Auto 62.1 45 - 73 % [facility] Imm Gran Pct Auto 0.1 0.0 - 0.4 % [facility] Lymphocytes Percent Auto 20.1 20 - 40 % [facility] Monocytes Percent Auto 11.3(H) 2 - 11 % [facility] Eosinophils Percent Auto 6.1(H) 0 - 4 % [facility] Basophils Percent Auto 0.3 0 - 2 % [facility] NRBC Pct Auto 0.0 0.0 - 0.2 /100WBC [facility] Neutrophils Absolute Auto 4.4 2.0 - 8.3 x10*3/uL [facility] Imm Gran Abs Auto 0.01 0.00 - 0.03 X10*3/uL [facility] Lymphocytes Absolute Auto 1.4 1.2 - 4.9 X10*3/uL [facility] Monocytes Absolute Auto 0.8 0.1 - 1.2 X10*3/uL [facility] Eosinophils Absolute Auto 0.4 0.0 - 0.4 X10*3/uL [facility] Basophils Absolute Auto 0.0 0.0 - 0.2 X10*3/uL [facility] NRBC Abs Auto 0.000 0.0 - 0.012 X10*3/uL [facility] 05/15/2025 8:09 PM EDT 05/15/2025 8:15 PM EDT [facility] - 05/15/2025 8:19 PM EDT No answer us Generic External Data Provider LAB BLOOD ORDERAB LES Final Result Performing Organization Address [facility] Co de Phone Number [facility] [address] [place] [phone] * Sed Rate by Modified Westergren (05/15/2025 8:09 PM EDT) Erythrocyte Sedimentation Rate 16 0 - 20 MM/HR [facility] Comment:Patients with polycy themia and many hemoglobin abnormalitiesmay have depressed sed rates whereas patients with anemiamay have elevated sed rates. 05/15/2025 8:09 PM EDT 05/15/2025 8:15 PM EDT [facility] - 05/15/2025 9:04 PM EDT No answer Generic External Data Provider LAB BLOOD ORDERAB LES Final Result Performing Organization Address [facility] Co de Phone Number [facility] [address] [place] [phone] * (ABNORMAL) C-reactive Protein (05/15/2025 8:09 PM EDT) C Reactive Protein 1.75(H) < or = 0.50 mg/dL [facility] 05/15/2025 8:09 PM EDT 05/15/2025 8:15 PM EDT [facility] - 05/15/2025 8:54 PM EDT No answer Generic External Data Provider LAB BLOOD ORDERAB LES Final Result Performing Organization Address [facility] Co de Phone Number [facility] [address] [place] [phone] * hCG, Total, Quantitative (05/15/2025 8:09 PM EDT) HCG Quantitative <2 mIU/mL [facility] Comment:Weeks post LMP Appro ximate hCG(Last Menstrual Period) Range (mIU/ml)3 - 4 weeks 9 - 1304 - 5 weeks 75 - 2,6005 - 6 weeks 850 - 20,8006 - 7 weeks 4000 - 100,2007 - 12 weeks 11,500 - 289,76721 - 16 weeks 18,300 - 137,34340 - 29 weeks (2nd trimester) 1,400 - 53,82569 - 41 weeks (3rd trimester) 940 - 60,000The [place]jo B- hCG assay is used for the early detection ofpregnancy; it cannot be used to diagnose any conditionunrelated to . If a B-hCG level is not supportedby the clinical evidence, results should be confirmed by analternative method (qualitative urine hCG, for example). 05/15/2025 8:09 PM EDT 05/15/2025 8:15 PM EDT [facility] - 05/15/2025 8:54 PM EDT No answer Generic External Data Provider LAB BLOOD ORDERAB LES Final Result Performing Organization Address [facility]/ZIP Co de Phone Number [facility] [address] [place] [phone] * Magnesium (05/15/2025 8:09 PM EDT) Magnesium 2.2 1.6 - 2.6 mg/dL [facility] 05/15/2025 8:09 PM EDT 05/15/2025 8:15 PM EDT [facility] - 05/15/2025 8:54 PM EDT No answer us Generic External Data Provider LAB BLOOD ORDERAB LES Final Result Performing Organization Address [facility]/ZIP Co de Phone Number [facility] [address] [place] [phone] * Lactic Acid (05/15/2025 8:09 PM EDT) Lactic Acid 1.0 0.5 - 2.0 mmol/L [facility] 05/15/2025 8:09 PM EDT 05/15/2025 8:15 PM EDT Narrative [facility] - 05/15/2025 8:34 PM EDT No answer us Generic External Data Provider LAB BLOOD ORDERAB LES Final Result [facility] [address] [place] [phone] * (ABNORMAL) Comprehensive Metabolic Panel (05/15/2025 8:09 PM EDT) Sodium 137 135 - 145 mmol/L [facility] Potassium 3.9 3.3 - 5.1 mmol/L [facility] Chloride 103 96 - 108 mmol/L [facility] Carbon Dioxide 26 22 - 29 mmol/L [facility] Anion Gap 12 12 - 20 [facility] Urea Nitrogen (BUN) 12 9 - 16 mg/dL [facility] Creatinine, Serum 0.51 0.5 - 1.4 mg/dL [facility] Creatinine Clr Calc Pharmacy 121.0 [facility] Comment:Provided height and weight: 165.1 cm,46.266 kg.eGFR (calculated from the MDRD study equation) and eCrCl(calculated from the Cockcroft-Gault equation) are based ondifferent parameters and may not yield comparable results.If eCrCl result is absurd, please check patient'sheight/weight. Estimated Glomerular Filt Rate >60 [facility] Comment:Chronic Kidney Disea se: Estimated GFR < 60 mL/min/1.76i7Mtzlyn Kidney Disease: Estimated GFR < 15 mL/min/1.73m2 Glucose 92 60 - 115 mg/dL [facility] Calcium 8.9 8.4 - 10.2 mg/dL [facility] Bilirubin, Total 0.2 0.0 - 1.0 mg/dL [facility] Aspartate Amino Transferase 62(H) 5 - 31 U/L [facility] Alanine Aminotransferase 67(H) 0 - 31 U/L [facility] Total Protein 7.6 6.5 - 8.0 g/dL [facility] Albumin Level 4.3 3.5 - 5.0 g/dL [facility] Alkaline Phosphatase 76 39 - 117 U/L [facility] 05/15/2025 8:09 PM EDT 05/15/2025 8:15 PM EDT Narrative [facility] - 05/15/2025 8:54 PM EDT No answer Generic External Data Provider LAB BLOOD ORDERAB LES Final Result Performing Organization Address [facility]/ZIP Co de Phone Number [facility] [address] [place] [phone] * Influenza B (ID NOW Rapid Molecular) (04/05/2025 9:28 AM EDT) Influenza B Negative Negative, Indeterminate [facility] Swab 04/05/2025 9:28 AM EDT Jaya Gutiérrez MD POINT OF CARE TEST ENTER/EDIT OR DERABLES Final Result Performing Organization Address [facility] Co de Phone Number [facility] [address] [place] [phone] * Influenza A (ID NOW Rapid Molecular) (04/05/2025 9:28 AM EDT) Influenza A Negative Negative, Indeterminate [facility] Swab 04/05/2025 9:28 AM EDT Jaya Gutiérrez MD POINT OF CARE TEST ENTER/EDIT OR DERABLES Final Result Performing Organization Address [facility] Co de Phone Number [facility] [address] [place] [phone] * POCT Rapid COVID Ag (04/05/2025 9:28 AM EDT) Rapid COVID Ag Negative [facility] Swab 04/05/2025 9:28 AM EDT Jaya Gutiérrez MD POINT OF CARE TEST ENTER/EDIT OR DERABLES Final Result [facility] [address] [place] [phone] * HM PAP/HPV (09/12/2020 1:45 PM EST) Historical Provider HEALTH MAINTENANCE Final Result from Last 3 Months or Most Recently Relevant to Health Maintenance Insurance [facility] STANDARD Care Teams Wallpaper Consultant Relationship Specialty Start Date End Date Venus Helms MD [address] [place] [phone] PCP - General Family Medicine 07/05/24 Loni Salgado Chief Of Pediatric UrologyTechnical Support Analyst 08/09/24
--- OUTSIDE RECORDS SUMMARY | 2025-06-06 01:30 | XMS_ITS | Encounter Summary ---
Author Organization [facility] Address [address] [place] [address] Phone Care Team Providers Care Help Desk Assistant Name Role Phone Erma Ng MD Primary Care Provider [phone] Encounter Details Date Type Department Care Team (Late st Contact Info) Description 11/29/2010 Conversion Encounter [facility] [address] [place] [address] Social History Tobacco Use Types Packs/Day Years [...] on filedocumented in this encounter Care Teams Help Desk Assistant Relationship Specialty Start Date End Date Erma Ng MD PCP - General 12/31/17 documented as of this encounter
--- OUTSIDE RECORDS SUMMARY | 2025-06-06 01:30 | XMS_ITS | Encounter Summary ---
Author Organization [employer] Address [address] [place] [address] Care Team Providers Care Residue Furnace Operator Name Role Phone Venus Helms MD Primary Care Provider [phone] Reason for Visit * Reason Comments Med Refill Encounter Details Date Type Department Care Team ([facility] st Contact Info) Description 02/09/2025 Refill [facility] [address] [place] [address] Venus Helms MD [address] [place] [address] Anxiety Social History Tobacco Use Types Packs/Day [...] documented as of this encounter Care Teams Residue Furnace Operator Relationship Specialty Start Date End Date Venus Helms MD [address] [place] [address] PCP - General Family Medicine 07/05/24 Loni Salgado Direct Support Staff MemberSurveyor Instrument Assistant 08/09/24 documented as of this encounter
--- OUTSIDE RECORDS SUMMARY | 2025-06-06 01:30 | XMS_ITS | Encounter Summary ---
Author Organization [employer] Address [address] [place] [address] Care Team Providers Care Needle Setter Name Role Phone Venus Helms MD Primary Care Provider [phone] Encounter Details Date Type Department Care Team ([facility] st Contact Info) Description 09/08/2024 Orders Only [facility] [address] [place] [address] Venus Helms MD [address] [place] [address] Anxiety; Persistent vomiting Social History Tobacco Use [...] documented as of this encounter Care Teams Needle Setter Relationship Specialty Start Date End Date Venus Helms MD [address] [place] [phone] PCP - General Family Medicine 07/05/24 Loni Salgado Inspector Grain Mill ProductsJob Placement Officer 08/09/24 documented as of this encounter
--- OUTSIDE RECORDS SUMMARY | 2025-06-06 01:30 | XMS_ITS | Encounter Summary ---
Author Organization [employer] Address [address] [place] [address] Care Team Providers Care Director Of Physician Practices Name Role Phone Venus Helms MD Primary Care Provider [phone] Reason for Visit * Reason Comments Med Refill Encounter Details Date Type Department Care Team ([facility] Contact Info) Description 07/29/2024 Refill [facility] [address] [place] [address] Venus Helms MD [address] [place] [address] Anxiety Social History Tobacco Use Types Packs/Day [...] documented as of this encounter Care Teams Director Of Physician Practices Relationship Specialty Start Date End Date Venus Helms MD [address] [place] [phone] PCP - General Family Medicine 07/05/24 Loni Salgado Transplant Case ManagerYeast Washer 08/09/24 documented as of this encounter
--- OUTSIDE RECORDS SUMMARY | 2025-06-06 01:30 | XMS_ITS | Encounter Summary ---
Author Organization [employer] Address [address] [place] [address] Care Team Providers Care Cullet Crusher Name Role Phone Venus Helms MD Primary Care Provider Encounter Details Date Type Department Care Team ([facility] st Contact Info) Description 01/11/2025 Orders [address] [facility] [address] [place] [address] Venus Helms MD [address] [place] [address] Anxiety Social History Tobacco Use Types Packs/Day [...] documented as of this encounter Care Teams Cullet Crusher Relationship Specialty Start Date End Date Venus Helms MD [address] [place] [phone] PCP - General Family Medicine 07/05/24 Loni Salgado Tube TesterGarment Looper 08/09/24 documented as of this encounter
--- OUTSIDE RECORDS SUMMARY | 2025-06-06 01:30 | XMS_ITS | Encounter Summary ---
Author Organization [employer] Address [address] [place] [address] Care Team Providers Care Angiographer Name Role Phone Venus Helms MD Primary Care Provider [phone] Reason for Visit * Reason Comments Med Refill Encounter Details Date Type Department Care Team ([facility] Contact Info) Description 02/11/2025 Refill [facility] [address] [place] [address] Venus Helms MD [address] [place] [address] Anxiety Social History Tobacco Use Types Packs/Day [...] documented as of this encounter Care Teams Angiographer Relationship Specialty Start Date End Date Venus Helms MD [address] [place] [address] PCP - General Family Medicine 07/05/24 Loni Salgado Camera OperatorPrinter'S Devil 08/09/24 documented as of this encounter
--- OUTSIDE RECORDS SUMMARY | 2025-06-06 01:30 | XMS_ITS | Clinical Summary ---
Author Organization [facility] Address [address] [place] [address] Care Team Providers Care Deputy Clerk Of Court Name Role Phone Unavailable Primary Care Provider [...] 07/27/2022 Social Influencers of Health Screening 07/27/2022 HPV Vaccines (1 - 3-dose SCD M series) 2024 Depression Screening 08/25/2024 COVID-19 Vaccine (1 - 2023-2 5 season) 2025 Influenza Vaccine (#1) 2025 RSV Immunization Adult Patie nts (1 - 1-dose 75+ series) 2072 HIB Vaccines Aged Out No longer eligi [...]
--- OUTSIDE RECORDS SUMMARY | 2025-06-06 01:30 | XMS_ITS | Encounter Summary ---
Author Organization [employer] Address [address] [place] [address] [address] [place] [address] Care Team Providers Care Automation Operator Name Role Phone Venus Helms MD Primary Care Provider [phone] Reason for Referral * Consultation (Urgent) - Authorized Specialty Diagnoses / Procedures Referred By Contac t Referred To Contact Neurology Diagnoses Convulsions, unspecified convulsion type (CMS/HCC) (HCC) Venus Helms MD [address] [place] [address] Phone: tel: fax: [facility] [address] [place] [address] Drive [address] [place] [address] Phone: tel: fax: Referral ID Status Reason Start Date Expiration Date Visits Requested Visits Authorized [id number] Authorized Specialty Services Required 02/11/2025 02/11/2026 1 1 Encounter Details Date Type Department Care Team (Late st Contact Info) Description 02/08/2025 Orders Only [facility] MED[facility]INE [address] [place] [address] Venus Helms MD [address] [place], [place] [id number] Fentanyl use disorder, severe (CMS/HCC) (Primary Dx); [...] the past 12 months, has t he [employer], gas, oil or water company threatened to [...] Visit Diagnoses Diagnosis Fentanyl use disorder, severe (CMS/HCC) (HCC)- Primary Convulsions, unspecified convulsion type (CMS/HCC) (HCC) documented in this encounter Additional Health Concerns Assessment Noted Time PHQ-9 Depression Total Score: 20 025 6:59 AM EDT documented as of this encounter Care Teams Automation Operator Relationship Specialty Start Date End Date Venus Helms MD [address] [place] [address] PCP - General Family Medicine 07/05/24 Loni Salgado Powder Coat PainterAd Terminal Makeup Operator 08/09/24 documented as of this encounter
--- OUTSIDE RECORDS SUMMARY | 2025-06-06 01:30 | XMS_ITS | Encounter Summary ---
Author Organization [employer] Address [address] [place] [address] Care Team Providers Care Lean Manufacturing Engineer Name Role Phone Venus Helms MD Primary Care Provider [phone] Reason for Visit * Reason Comments Med Refill Encounter Details Date Type Department Care Team ([facility] st Contact Info) Description 02/04/2025 Refill [facility] MED[facility]INE [address] [place] [address] Venus Helms MD [address] [place] [address] Anxiety Social History Tobacco Use Types Packs/Day [...] documented as of this encounter Care Teams Lean Manufacturing Engineer Relationship Specialty Start Date End Date Venus Helms MD [address] [place] [address] PCP - General Family Medicine 07/05/24 Loni Salgado Tank Furnace OperatorChild Day Care Provider 08/09/24 documented as of this encounter
[2025-06-06 02:22] LABS: CT PCR Urine NOT DETECTED (Not Detect.); NG PCR Urine NOT DETECTED (Not Detect.)
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
[2025-06-06 03:33] VITALS: BP 115/72; PULSE 94; RESP 20; TEMP 36.6; O2SAT 95
[2025-06-06 04:18] LABS: Syphilis Screen Nonreactive (Nonreactive)
[2025-06-06 04:19] LABS: HIV Num 1 0.06 S/CO (0.00-0.99)
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
--- OUTSIDE RECORDS SUMMARY | 2025-06-17 17:22 | XMS_ITS | Encounter Summary ---
Author Organization [employer] Address [address] [place] [address] Care Team Providers Care Fisher Scallop Name Role Phone Venus Helms MD Primary Care Provider [phone] Encounter Details Date Type Department Care Team ([facility] Contact Info) Description 06/17/2024 Orders Only [facility] [address] [place] [address] Stephanie Clark MD [address] [place] [address] Anxiety Social History Tobacco Use Types Packs/Day [...] unspecified documented in this encounter Care Teams Fisher Scallop Relationship Specialty Start Date End Date Venus Helms MD [address] [place] [address] PCP - General Family Medicine 07/05/24 Loni Salgado Emergency Room OrderlyCalliope Player 08/09/24 documented as of this encounter
--- OUTSIDE RECORDS SUMMARY | 2025-06-17 17:22 | XMS_ITS | Encounter Summary ---
Author Organization [facility] Address [address] [place] [address] Phone Care Team Providers Care Senior Cyber Security Analyst Name Role Phone Erma Ng MD Primary Care Provider [phone] Reason for Visit * Reason Comments Med Refill Encounter Details Date Type Department Care Team (Late st Contact Info) Description 11/10/2018 Refill [facility] [address] [place] [address] [place] [address] Marvin Crespo MD [address] [place] [address] [place] [address] Mild intermittent extrinsic asthma without complication (Primary [...] Primary documented in this encounter Care Teams Senior Cyber Security Analyst Relationship Specialty Start Date End Date Erma Ng MD PCP - General 12/31/17 documented as of this encounter
--- OUTSIDE RECORDS SUMMARY | 2025-06-17 17:22 | XMS_ITS | Encounter Summary ---
Author Organization [employer] Address [address] [place] [address] Care Team Providers Care Knot Tying Operator Name Role Phone Venus Helms MD Primary Care Provider [phone] Reason for Visit * Reason Comments Med Refill Encounter Details Date Type Department Care Team ([facility] st Contact Info) Description 07/29/2024 Refill [facility] [address] [place] [address] Venus Helms MD [address] [place] [address] Anxiety Social History Tobacco Use Types Packs/Day [...] documented as of this encounter Care Teams Knot Tying Operator Relationship Specialty Start Date End Date Venus Helms MD [address] [place] [address] PCP - General Family Medicine 07/05/24 Loni Salgado RibberAerobics Instructor 08/09/24 documented as of this encounter
--- OUTSIDE RECORDS SUMMARY | 2025-06-17 17:22 | XMS_ITS | Clinical Summary ---
Author Organization [facility] Address [address] [place] [address] Phone Care Team Providers Care Marketing Program Manager Name Role Phone Erma Ng MD Primary Care Provider [phone] Allergies Active Allergy Reactions Criticality Noted Date [...] patient's age to complete this topic Insurance [facility] NON PCC Care Teams Marketing Program Manager Relationship Specialty Start Date End Date Erma Ng MD PCP - General 12/31/17
--- OUTSIDE RECORDS SUMMARY | 2025-06-17 17:22 | XMS_ITS | Encounter Summary ---
Author Organization [employer] Address [address] [place] [address] 7t [place] [address] Care Team Providers Care Ceramic Saw Tender Name Role Phone Venus Helms MD Primary Care Provider [phone] Reason for Visit * Reason Comments Med Refill Encounter Details Date Type Department Care Team ([facility] st Contact Info) Description 04/23/2024 Refill [facility] [address] [place] [address] Stephanie Clark MD [address] [place] [address] Anxiety Social History Tobacco Use Types Packs/Day [...] unspecified documented in this encounter Care Teams Ceramic Saw Tender Relationship Specialty Start Date End Date Venus Helms MD [address] [place], [place] [id number] PCP - General Family Medicine 07/05/24 Loni Salgado Flying Ii InstructorMultifocal Lens Assembler 08/09/24 documented as of this encounter
--- OUTSIDE RECORDS SUMMARY | 2025-06-17 17:22 | XMS_ITS | Clinical Summary ---
Author Organization [facility] Address [address] [place] [address] Phone Care Team Providers Care Band Top Maker Name Role Phone Danica Redd MD Unavailable [phone] Pcp, Unknown Primary Care Provider Unavailabl e [...] think we need to do any further MAINTENANCE TEAM MEMBER imaging at this time. Her Lexapro was [...] Advance Directives For more information, please contact: [phone] (9AM - 5PM [facility], Friday-Friday) * Full Code (Confirmed) (Latest Code Status on File) Date Activated Date Inactivated Comments 07/19/2017 3:06 AM 07/19/2017 10:13 PM Question Answer Comments Code Discussion Comments: pt Care Teams Band Top Maker Relationship Specialty Start Date End Date Pcp, Unknown PCP - General 05/19/23 Danica Redd MD [email or web address] Pediatric Gastroenterology 07/19/17 Additional Source Comments The information contained in this document represents components of the legal health record. It is not the complete legal health record.[facility]
--- OUTSIDE RECORDS SUMMARY | 2025-06-17 17:22 | XMS_ITS | Encounter Summary ---
Author Organization [employer] Address [address] [place] [address] [address] [place] [address] Care Team Providers Care Child Welfare Manager Name Role Phone Venus Helms MD Primary Care Provider [phone] Reason for Visit * Reason Onset Date Comments Med Refill 03/29/2024 Encounter Details Date Type Department Care Team ([facility] st Contact Info) Description 03/29/2024 Telephone [facility] [address] [place] [address] Stephanie Clark MD [address] [place] [address] Med Refill Social History Tobacco Use Types [...] 2 MG tablet To be sent to: [facility] [place], [place] - [address] [facility] documented in this encounter Plan of Treatment Not on file documented as of this encounter Visit Diagnoses Not on filedocumented in this encounter Care Teams Child Welfare Manager Relationship Specialty Start Date End Date Venus Helms MD [address] [place] [address] PCP - General Family Medicine 07/05/24 Loni Salgado Mri SpecialistSpecial Certificate Dictator 08/09/24 documented as of this encounter
--- OUTSIDE RECORDS SUMMARY | 2025-06-17 17:22 | XMS_ITS | Clinical Summary ---
Author Organization [employer] Address [address] [place] [address] Care Team Providers Care Magnetic Tape Typewriter Operator Name Role Phone Venus Helms MD Primary Care Provider [phone] Allergies Active Allergy Reactions Criticality Noted Date [...] up to TID 90 tablet 025 Active fluticasone-catherine meterol (Advair) 230-21 MCG/ACT inhaler Inhale 2 puffs in the morning and at bedtime. Rinse mouth with water after use to reduce aftertaste and incidence of candidiasis. Do not swallow. 12 g 3 2025 Active Ventolin HFA 108 (90 Base) [...] OR SHORTNESS OF BREATH 90 mL 3 Active nicotine polacrilex (Commit) 2 MG lozenge Dissolve 1 lozenge (2 mg) in the mouth if needed for smoking cessation. 100 lozenge 2024 Discontinued(T herapy completed) nicotine (Nicoderm CQ) 14 MG/24HR patch Place 1 patch on the skin 1 (one) time each day at the same time. 42 patch 2024 Discontinued(T herapy completed) nicotine (Nicoderm CQ) 7 MG/24HR patch Place 1 patch on the skin 1 (one) time each day at the same time. 14 patch 2024 Discontinued(T herapy completed) albuterol (2.5 MG/3ML) 0.083% nebulizer solution Take 3 mL (2.5 mg) by nebulization every 4 (four) hours if needed for wheezing. 75 mL 3 2024 Discontinued cephalexin (Keflex) 500 MG capsule Take 1 capsule by mouth 2 times daily. 2024 Discontinued(T herapy completed) clonazePAM (KlonoPIN) 2 MG tablet Take 1 tablet by mouth every 6 (six) hours during the day. 2024 Discontinued(T herapy completed) doxycycline (Vibramycin) 100 MG capsule TAKE 1 CAPSULE BY MOUTH TWICE DAILY WITH A FULL GLASS OF WATER FOR 10 DAYS FOR COUGH 2024 Discontinued erythromycin (Romycin) 5 MG/GM ophthalmic ointment APPLY TO AFFECTED EYE(S) DAILY DIRECTED 2024 Discontinued(T herapy completed) Hospital, Clinic, or Other Facility Administered Medication Ordered Dose Route Frequency Start Date End Date Status naloxone (Narcan) nasal spray 4 mgIndications:Opio id use disorder 4 mg NA Once 01/20/2025 Active ipratropium-albute rol (Duo-Neb) 0.5-2.5 mg/3 mL nebulizer solution 3 mgIndications:Whee zing 3 mg NEBULIZATION Once 04/05/2025 Discontinued Active Problems Problem Noted Date Diagnosed Date Severe depression (CMS/HCC) 06/13/2025 Seizures (CMS/[facility]) 04/12/2025 Assessment & Plan (04/12/2025 6:17 PM [...] 04/05/2025 Chronic prescription benzodiazepine use 12/02/19 Overview (06/17/2025): Dx: Anxiety Rx: Klonazepam 2mg TID Last [employer] agreement: 01/19/25 Tier I (visit every month) Additional considerations: complicating social factors of homelessness, THIERNO, partner Timeline: Negative utox for all substances 11/30/24 Negative utox for opioids, fentanyl, and benzo, positive for THC 02/04/25 Prescription taper ordered at this time, due to two ER visits for suspected overdose events, pt unreachable and did not present to clinic to discuss [employer] plans or ER followup. She saw two of my colleagues, one in March and one in May, who recommended psych/neuro followup and to speak with me about her Klonopin, as I am her [employer] prescriber. Positive utox for Fentanyl, sendout pending 06/17/25 Assessment & Plan (02/07/2025 5:19 PM EDT): [...] & Plan (01/20/2025 7:38 AM EDT): Discussed [employer] agreement, signed paperwork, how to safely use and store her medications. Narcan use, prescribed. Reviewed the high risk of overdose with opioids, kalyan Fentanyl and benzodiazepines. Reviewed that safely reducing her benzodiazepine dose slowly will be the goal. She met Starla Banda today and set up 02/28 at 1pm as initial [employer] appointment. Consider referral to psychiatry. Pt requests [...] maxillofacial surgery Underweight 11/30/2024 Assessment & Plan (06/17/2025 4:59 PM EDT): Renew prescription for Ensure, pt prefers picking up the Ensure herself, does not want delivery Assessment & Plan (11/30/2024 7:45 AM EDT): Will prescribe Boost Fentanyl use disorder, severe (CMS/HCC) 07/16/20 24 Assessment & Plan (07/16/2024 6:02 AM EST): [...] ,denies any CV symptoms Pulse is regular NIKOLAY (generalized anxiety disorder) 08/11/2017 Persistent vomiting 07/19/2017 Assessment & Plan (07/16/2024 [...] frame to ensure compliance and signing of [employer] agreement Ultimately, she will be transitioned to psychiatric provider, and she is searching for OP therapy not associated with her correction Assessment & Plan (07/16/2024 6:06 AM EST): Patient currently taking Klonopin 2mg TID Refill for one month, and see in 4-6 weeks to obtain further psych history, determine best place to be seen, [place] [facility] [employer] [facility] [place] Assessment & Plan (06/29/2024 11:09 AM EST): [...] hx of Not sexually active No contraception Encounters * This document contains information received from the source organization and may not represent a complete record from that organization. Date Type Department Care Team Description 06/17/2025 1:00 PM EDT Office Visit [facility] [address] [address] Venus Helms MD Fentanyl use disorder, severe (CMS/HCC) (HCC) (Primary Dx); Anxiety; Chronic prescription benzodiazepine use; Underweight; Severe depression (CMS/HCC) (HCC); PTSD (post-traumatic stress disorder); NIKOLAY (generalized anxiety disorder); Seizures (CMS/HCC) (HCC) 06/17/2025 Travel 06/13/2025 Telephone [facility] [address] [address] Marcella Vargas, precinct police captain 06/13/[address] [address] Venus Helms MD REQUEST TO SPEAK TO A FARM TRACTOR OPERATOR 06/13/2025 Travel 06/07/2025 Results Follow-Up [address] [address] Venus Helms MD CBC auto differential, Lactic Acid, Comprehensive Metabolic Panel, Additional followed-up results: 4 06/06/2025 Orders Only GENERIC EXTERNAL DATA DEPARTMENT Provider, Generic External Data [facility] [address] [address] Jaya Gutiérrez MD 05/15/2025 Orders Only GENERIC EXTERNAL DATA DEPARTMENT Provider, Generic External Data 04/12/2025 5:00 PM EDT Office Visit [facility] [address] [place] [address] Stephanie Lynn MD Seizures ([facility]) (Primary Dx) 04/12/2025 Travel 04/11/2025 Telephone [facility] [address] [place] [address] Venus Helms MD 04/05/2025 9:00 AM EDT Office Visit [facility] [address] [place] [address] Jaya Gutiérrez MD Severe persistent asthma with [...] 9,1997,10/27 Influenza injectable quadriv alent preservative free 10/06/2018,07/19/2017 MMR 07/10/2002,08/22/1998 Meningococcal MCV4P ACYW-135 11/22/2013,12/07/19 09 Moderna Covid-19 Vaccine 12+ 05/23/2022,11/04/19 21,10/05/2020 Pneumococcal Polysaccharide PPSV23 10/06/2018 Tdap 04/07/2022,12/06/2008 Varicella 07/30/2007,08/22/1998 Family History Medical History Relation [...] 3.2 oz) 06/17/2025 11:57 AM EDT Height 165.1 cm (5' 5 ) 06/13/2025 1:29 PM EDT Body Mass Index 16.84 06/13/2025 1:29 PM EDT Plan of Treatment Health Maintenance Due Date Last Done Comments Lipid Panel 1997 Disability Screening 1997 Alcohol/Substance [...] Depression Monitoring 07/23/2025 01/20/2025, 025 Tobacco Screening 06/17/2026 06/17/2025 DTaP/Tdap/Td Vaccines (8 - Td or Tdap) [...] 11/18/19 13 Meningococcal Vaccine Completed 11/22/2013, 009 HIV Screening Completed 06/06/2025 Meningococcal B Vaccine Aged Out No l [...] PM EDT Fentanyl use disorder, severe (CMS/HCC) (HCC) HSV 1/2 IGG,TYPE SPECIFIC AB Routine 06/06/2025 3:25 AM EDT HIV 1/2 ANTIGEN/ANTIBODY, FOURTH GENERATION W/RFL Routine 06/06/2025 3:25 AM EDT SYPHILIS SCREEN Routine 06/06/2025 3:25 AM EDT CHLAMYDIA/TRICHOMONAS/ NEISSERIA GONORRHOEAE, PCR, URINE Routine 06/06/2025 12:47 AM EDT SED RATE BY MODIFIED WESTERGREN Routine [...] Recently Relevant to Health Maintenance Results * POCT RICHARD-14 Urine Drug Screen (06/17/2025 2:28 PM EDT) Pathologist [facility] Cocaine Screen, Urine Negative Negative Opiate Screen, [...] CARE TEST ENTER/EDIT ORDERABLES Final Result * Syphilis Screen (06/06/2025 3:25 AM EDT) [facility] Syphilis Screen Nonreactive Nonreactive [facility] 06/06/2025 3:25 AM EDT 06/06/2025 3:33 AM EDT Generic External Data Provider LAB BLOOD ORDERAB LES Final Result Performing Organization Address [facility]/ZIP Co de Phone Number [facility] [address] [place] [phone] * (ABNORMAL) Herpes Simplex Virus 1 and 2 (IgG), Type-Specific Antibodies (06/06/2025 3:25 AM EDT) Pathologist [facility] Herpes Simplex Type 1 IgG 56.70(A) index [facility] Herpes Simplex Type 2 IgG <0.90 index [facility] Comment: Index Interpretation ----- <0.90 Negative 0.90-1.09 Equivocal >1.09 PositiveThis assay utilizes recombinant type-specific antigensto differentiate HSV-1 from HSV-2 infections. Apositive result cannot distinguish between recent andpast infection. If results are negative or equivocal,consider repeat testing in 4-12 weeks with a newspecimen. The performance characteristics of the assayhave not been established for pediatric populations,immunocompromised patients, or screening.Positive HSV-2 IgG samples with index values between1.10-6.00 will reflex to the HSV-2 IgG inhibition test.See Note 1Note 1For additional information, please refer tohttp://education.Modanisa/faq/FAQ59(This link is being provided for informational/educational purposes only.)THIS TEST WAS PERFORMED AT:[employer] [place] [phone] FERNANDEZ MD 06/06/2025 3:25 AM EDT 06/06/2025 3:33 AM EDT Generic External Data Provider LAB BLOOD ORDERAB LES Final Result Performing Organization Address [facility]/ZIP Co de Phone Number [facility] [address] [place] [address] [place] [phone] * HIV-1/2 Antigen and Antibodies, Fourth Generation, with Reflexes (06/06/2025 3:25 AM EDT) Pathologist [facility] HIV AB/AG Nonreactive Nonreactive [facility] Comment:HIV-1 p24 Ag and/or HIV-1/HIV-2 Ab not detected.A test result that is nonreactive does not exclude thepossibility of exposure to or infection with HIV-1 and/orHIV-2. Nonreactive results in this assay for individualswith prior exposure to HIV-1 and/or HIV-2 may be due toantigen and antibody levels that are below the limit ofdetection of this assay.The Yipit HIV Ag/Ab Combo assay result andsupplemental assay results should be interpreted inconjunction with the patient's clinical presentation,history and other laboratory results. If the results areinconsistent with clinical evidence, additional testing issuggested to confirm the result. 06/06/2025 3:25 AM EDT 06/06/2025 3:33 AM EDT us Generic External Data Provider LAB BLOOD ORDERAB LES Final Result [facility] [address] [place] [address] [phone] * Chlamydia/Trichomonas/Neisseria gonorrhoeae, PCR, Urine (06/06/2025 12:47 AM EDT) [facility] CT PCR, Urine NOT DETECTED Not Detect. [facility] Comment:A not detected test result does not exclude the possibilityof infection because test results can be affected byimproper specimen collection, concurrent antibiotic therapy,or the number of organisms in the specimen which may bebelow the sensitivity of the test. As with many diagnostictests, results from the Xpert CT/NG assay should beinterpreted in conjunction with other laboratory andclinical data available to the clinician.The Xpert CT/NG assay should not be used for the evaluationof suspected sexual abuse or for other medico-legalindications. Additional testing is recommended in anycircumstance when false positive or false negative resultscould lead to adverse medical, social or psychologicalconsequences. NG PCR, Urine NOT DETECTED Not Detect. [facility] Comment:A not detected test result does not exclude the possibilityof infection because test results can be affected byimproper specimen collection, concurrent antibiotic therapy,or the number of organisms in the specimen which may bebelow the sensitivity of the test. As with many diagnostictests, results from the Xpert CT/NG assay should beinterpreted in conjunction with other laboratory andclinical data available to the clinician.The Xpert CT/NG assay should not be used for the evaluationof suspected sexual abuse or for other medico-legalindications. Additional testing is recommended in anycircumstance when false positive or false negative resultscould lead to adverse medical, social or psychologicalconsequences. 06/06/2025 12:4 7 AM EDT 06/06/2025 12:51 AM EDT us Generic External Data Provider LAB URINE ORDERAB LES Final Result [facility] [address] [place] [phone] * (ABNORMAL) CBC auto differential (05/15/2025 8:09 PM EDT) White Blood Count 7.0 4.8 - 10.8 X10*3/uL [facility] Red Blood Count 4.61 4.20 - 5.50 X10*6/uL [facility] Hemoglobin 13.4 12.0 - 16.0 g/dl [facility] Hematocrit 40.3 37.0 - 47.0 % [facility] Mean Corpuscular Volume 87.4 80.0 - 98.0 fL [facility] Mean Corpuscular Hemoglobin 29.1 27.0 - 33.0 pg [facility] Mean Corpuscular HGB Conc 33.3 31.0 - 35.0 g/dl [facility] Red Cell Distribution Width 13.8 11.0 - 16.0 % [facility] Platelet Count 235 160 - 400 X10*3/uL [facility] Mean Platelet Volume 9.6 9.4 - 12.3 fL [facility] Neutrophils Percent Auto 62.1 45 - 73 % [facility] Imm Gran Pct Auto 0.1 0.0 - 0.4 % [facility] Lymphocytes Percent Auto 20.1 20 - 40 % [facility] Monocytes Percent Auto 11.3(H) 2 - 11 % [facility] Eosinophils Percent Auto 6.1(H) 0 - 4 % [facility] Basophils Percent Auto 0.3 0 - 2 % [facility] NRBC Pct Auto 0.0 0.0 - 0.2 /100WBC [facility] Neutrophils Absolute Auto 4.4 2.0 - 8.3 x10*3/uL [facility] Imm Gran Abs Auto 0.01 0.00 - 0.03 X10*3/uL [facility] Lymphocytes Absolute Auto 1.4 1.2 - 4.9 X10*3/uL [facility] Monocytes Absolute Auto 0.8 0.1 - 1.2 X10*3/uL [facility] Eosinophils Absolute Auto 0.4 0.0 - 0.4 X10*3/uL [facility] Basophils Absolute Auto 0.0 0.0 - 0.2 X10*3/uL [facility] NRBC Abs Auto 0.000 0.0 - 0.012 X10*3/uL [facility] 05/15/2025 8:09 PM EDT 05/15/2025 8:15 PM EDT Narrative [facility] - 05/15/2025 8:19 PM EDT No answer us Generic External Data Provider LAB BLOOD ORDERAB LES Final Result [facility] [address] [place] [address] [phone] * Sed Rate by Modified Mary (05/15/2025 8:09 PM EDT) Pathologist [facility] Erythrocyte Sedimentation Rate 16 0 - 20 MM/HR [facility] Comment:Patients with polycy themia and many hemoglobin abnormalitiesmay have depressed sed rates whereas patients with anemiamay have elevated sed rates. 05/15/2025 8:09 PM EDT 05/15/2025 8:15 PM EDT [facility] - 05/15/2025 9:04 PM EDT No answer Generic External Data Provider LAB BLOOD ORDERAB LES Final Result Performing Organization Address [facility] Co de Phone Number [facility] [address] [place] [phone] * (ABNORMAL) C-reactive Protein (05/15/2025 8:09 PM EDT) [facility] C Reactive Protein 1.75(H) < or = 0.50 mg/dL [facility] 05/15/2025 8:09 PM EDT 05/15/2025 8:15 PM EDT [facility] - 05/15/2025 8:54 PM EDT No answer Generic External Data Provider LAB BLOOD ORDERAB LES Final Result Performing Organization Address [facility] Co de Phone Number [facility] [address] [place] [phone] * hCG, Total, Quantitative (05/15/2025 8:09 PM EDT) Pathologist [facility] HCG Quantitative <2 mIU/mL [facility] Comment:Weeks post LMP Appro ximate hCG(Last Menstrual Period) Range (mIU/ml)3 - 4 weeks 9 - 1304 - 5 weeks 75 - 2,6005 - 6 weeks 850 - 20,8006 - 7 weeks 4000 - 100,2007 - 12 weeks 11,500 - 289,22519 - 16 weeks 18,300 - 137,82816 - 29 weeks (2nd trimester) 1,400 - 53,09878 - 41 weeks (3rd trimester) 940 - 60,000The [place] B- hCG assay is used for the early detection ofpregnancy; it cannot be used to diagnose any conditionunrelated to . If a B-hCG level is not supportedby the clinical evidence, results should be confirmed by analternative method (qualitative urine hCG, for example). 05/15/2025 8:09 PM EDT 05/15/2025 8:15 PM EDT [facility] - 05/15/2025 8:54 PM EDT No answer Generic External Data Provider LAB BLOOD ORDERAB LES Final Result Performing Organization Address [facility]/ZIP Co de Phone Number [facility] [address] [place] [phone] * Magnesium (05/15/2025 8:09 PM EDT) Magnesium 2.2 1.6 - 2.6 mg/dL [facility] 05/15/2025 8:09 PM EDT 05/15/2025 8:15 PM EDT [facility] - 05/15/2025 8:54 PM EDT No answer Generic External Data Provider LAB BLOOD ORDERAB LES Final Result Performing Organization Address [facility] Co de Phone Number [facility] [address] [place] [phone] * Lactic Acid (05/15/2025 8:09 PM EDT) Lactic Acid 1.0 0.5 - 2.0 mmol/L [facility] 05/15/2025 8:09 PM EDT 05/15/2025 8:15 PM EDT [facility] - 05/15/2025 8:34 PM EDT No answer Generic External Data Provider LAB BLOOD ORDERAB LES Final Result Performing Organization Address City/[facility] Co de Phone Number [facility] [address] [place] [phone] [phone] * (ABNORMAL) Comprehensive Metabolic Panel (05/15/2025 8:09 PM EDT) Sodium 137 135 - 145 mmol/L [facility] Potassium 3.9 3.3 - 5.1 mmol/L [facility] Chloride 103 96 - 108 mmol/L [facility] Carbon Dioxide 26 22 - 29 mmol/L [facility] Anion Gap 12 12 - 20 [facility] Urea Nitrogen (BUN) 12 9 - 16 mg/dL [facility] Creatinine, Serum 0.51 0.5 - 1.4 mg/dL [facility] Creatinine Clr Calc Pharmacy 121.0 [facility] Comment:Provided height and weight: 165.1 cm,46.266 kg.eGFR (calculated from the MDRD study equation) and eCrCl(calculated from the Cockcroft-Gault equation) are based ondifferent parameters and may not yield comparable results.If eCrCl result is absurd, please check patient'sheight/weight. Estimated Glomerular Filt Rate >60 [facility] Comment:Chronic Kidney Disea se: Estimated GFR < 60 mL/min/1.34n6Pguccg Kidney Disease: Estimated GFR < 15 mL/min/1.73m2 Glucose 92 60 - 115 mg/dL [facility] Calcium 8.9 8.4 - 10.2 mg/dL [facility] Bilirubin, Total 0.2 0.0 - 1.0 mg/dL [facility] Aspartate Amino Transferase 62(H) 5 - 31 U/L [facility] Alanine Aminotransferase 67(H) 0 - 31 U/L [facility] Total Protein 7.6 6.5 - 8.0 g/dL [facility] Albumin Level 4.3 3.5 - 5.0 g/dL [facility] Alkaline Phosphatase 76 39 - 117 U/L [facility] 05/15/2025 8:09 PM EDT 05/15/2025 8:15 PM EDT Narrative [facility] - 05/15/2025 8:54 PM EDT No answer Generic External Data Provider LAB BLOOD ORDERAB LES Final Result Performing Organization Address [facility]/ZIP Co de Phone Number [facility] [address] [place] [phone] * Influenza B (ID NOW Rapid Molecular) (04/05/2025 9:28 AM EDT) Influenza B Negative Negative, Indeterminate [facility] Swab 04/05/2025 9:28 AM EDT Jaya Gutiérrez MD POINT OF CARE TEST ENTER/EDIT OR DERABLES Final Result Performing Organization Address [facility] Co de Phone Number [facility] [address] [place] [phone] * Influenza A (ID NOW Rapid Molecular) (04/05/2025 9:28 AM EDT) Influenza A Negative Negative, Indeterminate [facility] Swab 04/05/2025 9:28 AM EDT Jaya Gutiérrez MD POINT OF CARE TEST ENTER/EDIT OR DERABLES Final Result Performing Organization Address [facility] Co de Phone Number [facility] [address] [place] [phone] * POCT Rapid COVID Ag (04/05/2025 9:28 AM EDT) Rapid COVID Ag Negative [facility] Swab 04/05/2025 9:28 AM EDT Jaya Gutiérrez MD POINT OF CARE TEST ENTER/EDIT OR DERABLES Final Result Performing Organization Address [facility] Co de Phone Number [facility] [address] [place] [phone] * HM PAP/HPV (09/12/2020 1:45 PM EST) us Historical Provider HEALTH MAINTENANCE Final Result from Last 3 Months or Most Recently Relevant to Health Maintenance Insurance [facility] Care Teams Magnetic Tape Typewriter Operator Relationship Specialty Start Date End Date Venus Helms MD [address] [place] [phone] PCP - General Family Medicine 07/05/24 Loni Salgado Comic Book DesignerInjection Press Operator 08/09/24
--- OUTSIDE RECORDS SUMMARY | 2025-06-17 17:22 | XMS_ITS | Encounter Summary ---
Author Organization [facility] Address [address] [place] [address] Phone Care Team Providers Care Screen Tender Name Role Phone Erma Ng MD Primary Care Provider [phone] Encounter Details Date Type Department Care Team (Late st Contact Info) Description 11/29/2010 Conversion Encounter [facility] [address] [address] Social History Tobacco Use Types Packs/Day Years [...] on filedocumented in this encounter Care Teams Screen Tender Relationship Specialty Start Date End Date Erma Ng MD PCP - General 12/31/17 documented as of this encounter
--- OUTSIDE RECORDS SUMMARY | 2025-06-17 17:22 | XMS_ITS | Encounter Summary ---
Author Organization [employer] Address [address] 7[address] [place] [address] Care Team Providers Care Casting Cleaner Name Role Phone Venus Helms MD Primary Care Provider [phone] Reason for Visit * Reason Comments Med Refill Encounter Details Date Type Department Care Team ([facility] st Contact Info) Description 02/09/2025 Refill [facility] MEDICINE [address] [place] [address] Venus Helms MD [address] [place] [address] Anxiety Social History Tobacco Use Types Packs/Day [...] documented as of this encounter Care Teams Casting Cleaner Relationship Specialty Start Date End Date Venus Helms MD [address] [place] [address] PCP - General Family Medicine 07/05/24 Loni Salgado Special Systems TechnicianHigh School Science Teacher 08/09/24 documented as of this encounter
--- OUTSIDE RECORDS SUMMARY | 2025-06-17 17:23 | XMS_ITS | Encounter Summary ---
Author Organization [employer] Address [address] 7[address] [place] [address] Care Team Providers Care Clamper Name Role Phone Venus Helms MD Primary Care Provider [phone] Reason for Visit * Reason Comments Med Refill Encounter Details Date Type Department Care Team ([facility] st Contact Info) Description 02/04/2025 Refill [facility] MEDICINE [address] [place] [address] Venus Helms MD [address] [place] [address] Anxiety Social History Tobacco Use Types Packs/Day [...] documented as of this encounter Care Teams Clamper Relationship Specialty Start Date End Date Venus Helms MD [address] [place] [address] PCP - General Family Medicine 07/05/24 Loni Salgado Liner Reroll TenderSupervisor Steno Pool 08/09/24 documented as of this encounter
--- OUTSIDE RECORDS SUMMARY | 2025-06-17 17:23 | XMS_ITS | Encounter Summary ---
Author Organization [employer] Address [address] 7[address] [place] [address] Care Team Providers Care Piercer Operator Name Role Phone Venus Helms MD Primary Care Provider [phone] Reason for Visit * Reason Onset Date Comments Med Refill 09/08/2024 Encounter Details Date Type Department Care Team (Late st Contact Info) Description 09/08/2024 Refill [facility] MEDICINE [address] [place] [address] Venus Helms MD [address] [place] [address] Anxiety; Persistent vomiting Social History Tobacco Use [...] documented as of this encounter Care Teams Piercer Operator Relationship Specialty Start Date End Date Venus Helms MD [address] [place] [address] PCP - General Family Medicine 07/05/24 Loni Salgado Manufacturers Service RepresentativeDirector Alumni Relations 08/09/24 documented as of this encounter
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
--- OUTSIDE RECORDS SUMMARY | 2025-06-17 17:23 | XMS_ITS | Encounter Summary ---
Author Organization [employer] Address [address] 7t [place] [address] Care Team Providers Care Weathercaster Name Role Phone Venus Helms MD Primary Care Provider Encounter Details Date Type Department Care Team (Latest Contact Info) Description 06/17/2025 Travel Social History Tobacco Use Types Packs/Day Years [...] documented as of this encounter Care Teams Weathercaster Relationship Specialty Start Date End Date Venus Helms MD [address] [place] [address] PCP - General Family Medicine 07/05/24 Loni Salgado House PrincipalComputer Programming Supervisor 08/09/24 documented as of this encounter
--- OUTSIDE RECORDS SUMMARY | 2025-06-17 17:23 | XMS_ITS | Clinical Summary ---
Author Organization [facility] Address [address] [place] [address] Care Team Providers Care Data Visualization Developer Name Role Phone Unavailable Primary Care Provider [...]
--- OUTSIDE RECORDS SUMMARY | 2025-06-17 17:23 | XMS_ITS | Encounter Summary ---
Author Organization [employer] Address [address] 7[address] [place] [address] Care Team Providers Care Laborer Pullet Farm Name Role Phone Venus Helms MD Primary Care Provider [phone] Encounter Details Date Type Department Care Team (Late st Contact Info) Description 10/07/2024 Orders Only [facility] MEDICINE [address] [place] [address] ProviderKasey MD Social History Tobacco Use Types [...] documented as of this encounter Care Teams Laborer Pullet Farm Relationship Specialty Start Date End Date Venus Helms MD [address] [place] [address] PCP - General Family Medicine 07/05/24 Loni Salgado Business Services Sales RepresentativeTire Building Supervisor 08/09/24 documented as of this encounter
--- OUTSIDE RECORDS SUMMARY | 2025-06-17 17:23 | XMS_ITS | Encounter Summary ---
Author Organization [employer] Address [address] [place] [address] Care Team Providers Care Outreach And Education Social Worker Name Role Phone Venus Helms MD Primary Care Provider Reason for Visit * Reason Onset Date Comments triage 06/13/2025 Encounter Details Date Type Department Care Team ([facility] st Contact Info) Description 06/13/2025 Telephone [facility] [address] [place] [address] Marcella Vargas, LAYLA [address] [place] [address] triage Social History Tobacco Use Types Packs/Day Years [...] encounter Miscellaneous Notes * Telephone Encounter - Marcella Vargas RN - 06/16/2025 9:27 AM EDT Late entry Patient presented to [facility] in [place] requesting a copy of her Boost Rx that was given to patient in November for a jaw fracture. Spoke to the patient and advised her that the Rx was faxed to medical supply store at that time. Patient states I just need a copy of the physical Rx so I can go to the store and get my boost . I advised that the patient needs to be re=evaluated to receive a Rx for boost as it was prescribed for a broken jaw which has now healed. Patient then became very tearful states that she has increased depression and anxiety and became very tearful. Asked patient if she would like me to call and placed her on the schedule to be seen up stairs. Patient then began to talk about Klonopin Rx that was stopped by her PCP and that she had been on that medication since she was 16 years old, (she has not had this medication since February and not withdrawing at this time)pt states I am only viewed as a drug addict and not a person. At this time I ensured patient that the [facility] does not public health microbiologist people and she would be treated as any other patient, she would be evaluat ed by and a provider to reach a plan of care that safely meets her needs at this time. Patient agreeable to be evaluated documented in this encounter Plan of Treatment Not on file documented as of this encounter Visit Diagnoses Not on filedocumented in this encounter Additional Health Concerns Assessment Noted Time PHQ-9 Depression Total Score: 20 025 6:59 AM EDT documented as of this encounter Care Teams Outreach And Education Social Worker Relationship Specialty Start Date End Date Venus Helms MD [address] [place] [address] PCP - General Family Medicine 07/05/24 Loni Salgado Shot BlasterLehr Operator 08/09/24 documented as of this encounter
--- OUTSIDE RECORDS SUMMARY | 2025-06-17 17:23 | XMS_ITS | Encounter Summary ---
Author Organization [employer] Address [address] [place] [address] Care Team Providers Care Transportation Specialist Name Role Phone Venus Helms MD Primary Care Provider [phone] Reason for Visit * Reason Comments Med Refill Encounter Details Date Type Department Care Team ([facility] st Contact Info) Description 02/11/2025 Refill [facility] MEDICINE [address] [place] [address] Venus Helms MD [address] [place] [address] Anxiety Social History Tobacco Use Types Packs/Day [...] documented as of this encounter Care Teams Transportation Specialist Relationship Specialty Start Date End Date Venus Helms MD [address] [place] [address] PCP - General Family Medicine 07/05/24 Loni Salgado Special AgentMarketing And Promotions Manager 08/09/24 documented as of this encounter
--- OUTSIDE RECORDS SUMMARY | 2025-06-17 17:23 | XMS_ITS | Encounter Summary ---
Author Organization [employer] Address [address] [place] [address] Care Team Providers Care Type Soldering Machine Tender Name Role Phone Venus Helms MD Primary Care Provider [phone] Encounter Details Date Type Department Care Team ([facility] st Contact Info) Description 09/08/2024 Orders Only [facility] MEDICINE [address] [place] [address] Venus Helms MD [address] [place] [address] Anxiety; Persistent vomiting Social History Tobacco Use [...] documented as of this encounter Care Teams Type Soldering Machine Tender Relationship Specialty Start Date End Date Venus Helms MD [address] [place] [address] PCP - General Family Medicine 07/05/24 Loni Salgado Anesthesiologist Assistant CertifiedPi/Senior Research Associate 08/09/24 documented as of this encounter
--- OUTSIDE RECORDS SUMMARY | 2025-06-17 17:23 | XMS_ITS | Encounter Summary ---
Author Organization [employer] Address [address] 7t [place] [address] Care Team Providers Care Cook Fast Food Name Role Phone Venus Helms MD Primary Care Provider Reason for Referral * Consultation (Urgent) - Authorized Specialty Diagnoses / Procedures Referred By Contac t Referred To Contact Neurology Diagnoses Convulsions, unspecified convulsion type (CMS/HCC) (HCC) Venus Helms MD [address] [place] [address] Phone: tel: fax: [facility] [address] [place] [address] [address] [place] [address] Phone: tel: fax: Referral ID Status Reason Start Date Expiration Date Visits Requested Visits Authorized [id number] Authorized Specialty Services Required 02/11/2025 02/11/2026 1 1 Encounter Details Date Type Department Care Team (Late st Contact Info) Description 02/08/2025 Orders Only [facility] MEDICINE [address] [place] [address] Venus Helms MD [address] [place], [place] [id number] Fentanyl use disorder, severe (CMS/HCC) (Primary Dx); [...] the past 12 months, has t he [employer] gas, oil or water company threatened to [...] documented as of this encounter Care Teams Cook Fast Food Relationship Specialty Start Date End Date Venus Helms MD [address] [place] [address] PCP - General Family Medicine 07/05/[address] SuperintendentMissile Technician 08/09/24 documented as of this encounter
--- OUTSIDE RECORDS SUMMARY | 2025-06-17 17:23 | XMS_ITS | Encounter Summary ---
Author Organization [employer] Address [address] [place] [address] Care Team Providers Care Fleet Assistant Name Role Phone Venus Helms MD Primary Care Provider [phone] Encounter Details Date Type Department Care Team ([facility] st Contact Info) Description 01/11/2025 Orders Only [facility] MEDICINE [address] [place] [address] Venus Helms MD [address] [place] [address] Anxiety Social History Tobacco Use Types Packs/Day [...] documented as of this encounter Care Teams Fleet Assistant Relationship Specialty Start Date End Date Venus Helms MD [address] [place] [address] PCP - General Family Medicine 07/05/24 Loni Salgado Project ExecutiveWastewater Process Engineer 08/09/24 documented as of this encounter
--- OUTSIDE RECORDS SUMMARY | 2025-06-17 17:23 | XMS_ITS | Encounter Summary ---
Author Organization [employer] Address [address] [place] [address] Care Team Providers Care Environmental Journalist Name Role Phone Venus Helms MD Primary Care Provider [phone] Encounter Details Date Type Department Care Team (Latest Contact Info) Description 06/13/2025 Travel Social History Tobacco Use Types Packs/Day [...] documented as of this encounter Care Teams Environmental Journalist Relationship Specialty Start Date End Date Venus Helms MD [address] [place] [address] PCP - General Family Medicine 07/05/24 Loni Salgado Databases Software ConsultantHigh Frequency Mill Operator 08/09/24 documented as of this encounter
--- OUTSIDE RECORDS SUMMARY | 2025-06-17 17:23 | XMS_ITS | Encounter Summary ---
Author Organization [employer] Address [address] [place] [address] Care Team Providers Care Review Assistant Name Role Phone Venus Helms MD Primary Care Provider Reason for Visit * Reason Onset Date Comments Med Refill 09/08/2024 Encounter Details Date Type Department Care Team (Late st Contact Info) Description 09/08/2024 Refill [facility] MEDICINE [address] [place] [address] Stephanie Lynn MD [address] [place] [address] Anxiety Social History Tobacco Use Types Packs/Day [...] documented as of this encounter Care Teams Review Assistant Relationship Specialty Start Date End Date Venus Helms MD [address] [place] [address] PCP - General Family Medicine 07/05/24 Loni Salgado Firer BoilerCounter Help 08/09/24 documented as of this encounter
--- OUTSIDE RECORDS SUMMARY | 2025-06-17 17:23 | XMS_ITS | Encounter Summary ---
Author Organization [employer] Address [address] [place] [address] Care Team Providers Care Cabin Worker Name Role Phone Venus Helms MD Primary Care Provider [phone] Reason for Visit * Reason Onset Date Comments Med Refill 09/08/2024 Encounter Details Date Type Department Care Team (Late st Contact Info) Description 09/08/[address] [facility] MEDICINE [address] [place] [address] Venus Helms MD [address] [place] [address] Persistent vomiting; Anxiety Social History Tobacco Use [...] documented as of this encounter Care Teams Cabin Worker Relationship Specialty Start Date End Date Venus Helms MD [address] [place] [address] PCP - General Family Medicine 07/05/24 Loni Salgado Landscape DesignerDrivematic Machine Operator 08/09/24 documented as of this encounter
[2025-06-24 12:56] LABS: Fentanyl, Ur >250.0; Norfentanyl, Ur 2.1
== END 2025-06-17 16:46 | disposition home or self-care (01) ==
LOC: HO.LNP 06-17 16:45
PROVIDERS: Physician Assistant Medical; Emergency Provider Emergency Medicine; PCP General Practice; Visit Provider General Practice
DX: F11.20 Opioid dependence, uncomplicated (principal); Z20.2 Contact with and (suspected) exposure to infections with a predominantly sexual mode of transmission; Z11.4 Encounter for screening for human immunodeficiency virus [HIV]; Z01.84 Encounter for antibody response examination
CPT/HCPCS: 36415; 80354; 86695; 86696; 86780; 87389; 87491; 87591; 99282